=== PATIENT | female | born 1945 | race Caucasian/White ===

== ENCOUNTER → 2017-09-09 | Outpatient (CLI) | payer MEDICARE, BC, SELFPAY | PROVIDERS: Visit Provider Surgery | DX: R10.84 Generalized abdominal pain (principal) | CPT/HCPCS: 36415; 80053; 85025 ==

== ENCOUNTER → 2017-09-18 10:09 | Outpatient (CLI) | payer MEDICARE, BC, SELFPAY ==
--- NOTE | 2017-09-18 10:14 | CT_ITS ---
CT abdomen pelvis w con CLINICAL INDICATION: Right upper quadrant pain, abdominal wall bulge, abdominal pain ITS.REASON: ABD WALL BULGE, ABD PAIN ORDERING PHYSICIAN: Gee Edwards MD PATIENT AGE: 71 years COMPARISON: 03/26/2016 TECHNIQUE: Axial images obtained with sagittal and coronal reformats. PROCEDURE: Oral Contrast: Redicat IV Contrast: 75 mL of Isovue-370 . FINDINGS: No acute finding in the lower chest. Prior cholecystectomy. The liver, spleen, adrenal glands, and pancreas are unremarkable. No renal mass or hydronephrosis. There is a 3 mm nonobstructing stone in lower pole the right kidney Small bilateral renal cortical cyst. No intestinal structure free air. There is a moderate amount retained colonic feces. No evidence of diverticulitis or appendicitis. Prior hysterectomy. No abdominal wall hernia. There is minimal bulging of the anterior abdominal wall just inferior to the level the umbilicus but no clarke hernia evident. There are degenerative changes in the lumbar spine. Mild lumbar scoliosis convex left. IMPRESSION: 1. No acute intra-abdominal or pelvic findings. 2. Nonobstructive right nephrolithiasis. 3. Minimal bulging of the anterior abdominal wall slightly to the left in the infraumbilical region. No abdominal wall hernia evident
--- NOTE | 2017-09-18 11:06 | HMH.ITSHM ---
alprazolam amitriptyline amlodipine cyclobenzaprine ergocalciferol fluticasone salmeterol furosemide gabapentin glycopyrrolate levocetirizine levothyroxine metformin methen m blue s phos phasal hyo milnacipran o2 nicotine omeprazole potassium cholride rosuvastatin sitagliptin topiramate ventolin
== END ==
PROVIDERS: Family Provider Family Medicine; PCP Family Medicine; Visit Provider Surgery
DX: R10.11 Right upper quadrant pain (principal); R19.01 Right upper quadrant abdominal swelling, mass and lump
CPT/HCPCS: 74177; Q9967

== ENCOUNTER → 2017-10-05 09:56 | Outpatient (POV) | payer MEDICARE, BC, SELFPAY ==
[2017-10-05 10:26] VITALS: BP 113/72; PULSE 108; RESP 16; TEMP 37; O2SAT 95; BMI 28.3
--- NOTE | 2017-10-05 10:49 | HMH.PAINSOAP ---
[facility] Pain Management SOAP Note Subjective:: This patient is a pleasant 71-year-old white female we are treating for low back pain with degenerative disc disease of lumbar spine multiple levels as well as facet hypertrophy. Her insurance has denied repeat medial branch block injections. We did get a new MRI which shows degenerative disc disease with bulging disc at L3-L4, L4-L5 and L5-S1 most severe at L5-S1 with severe facet arthritic change. I do believe that she would benefit from repeat medial branch blocks and possibly rhizotomy. We will appeal this denial. We will also refer to Dr. Alcantara for neurosurgical evaluation. If she is not a surgical candidate then she may be a candidate for intrathecal therapy. I have talked to her for pain pump. We will follow-up with her and possibly pursue intrathecal pump trial. Objective:: Alert and oriented ?3 in no acute distress. Patient does have an antalgic gait. She also is sitting shifted to the left because of increasing pain. Motor strength of the lower extremities is 5/5. There is no gross sensory deficit. Tenderness over the lower lumbar spine. Increased pain with extension. Assessment:: Degenerative disc disease lumbar spine multilevel with bulging disc and severe facet arthritic changes with lumbar radiculopathy symptoms. Plan:: We did get a new MRI which shows degenerative disc disease with bulging disc at L3-L4, L4-L5 and L5-S1 most severe at L5-S1 with severe facet arthritic change. I do believe that she would benefit from repeat medial branch blocks and possibly rhizotomy. We will appeal this denial. We will also refer to Dr. Alcantara for neurosurgical evaluation. If she is not a surgical candidate then she may be a candidate for intrathecal therapy. I have talked to her for pain pump. We will follow-up with her and possibly pursue intrathecal pump trial.
== END ==
PROVIDERS: Family Provider Family Medicine; PCP Family Medicine; Visit Provider Anesthesiology
DX: M51.16 Intervertebral disc disorders with radiculopathy, lumbar region (principal)
CPT/HCPCS: 99212

== ENCOUNTER → 2017-10-13 10:56 | Outpatient (POV) | payer MEDICARE, BC, SELFPAY | PROVIDERS: Family Provider Family Medicine; PCP Family Medicine; Visit Provider Internal Medicine | DX: Z00.00 Encounter for general adult medical examination without abnormal findings (principal) ==

== ENCOUNTER → 2017-11-16 14:46 | Outpatient (POV) | payer MEDICARE, BC, SELFPAY ==
[2017-11-16 15:23] VITALS: BP 140/92; PULSE 105; RESP 20; O2SAT 94; BMI 31.6
--- NOTE | 2017-11-16 17:03 | HMH.PAINSOAP ---
[facility] Pain Management SOAP Note Subjective:: This patient is a pleasant 72-year-old white female who we are treating for low back pain secondary to degenerative disc disease of the lumbar spine, bulging disks, severe facet arthritis. Patient has tried and failed physical therapy, anti-inflammatories. Patient has severe facet arthritic changes. Patient had been trying to get medial branch blocks approved however her insurance denied this. Patient presents since today with extreme point tenderness over her bilateral SI joints. She has pain radiating from her SI joint to the back of her knees bilaterally. Patient states she has not had any SI joint injections in the past. Patient is also interested in the facet injections at some point. Patient states her pain is sharp and stabbing at times. Patient was seen by Dr. Alcantara who recommended injections at this time and potentially RFAs or an intrathecal pain pump due to the fact that she is not a surgical candidate at this time. ROS General: no recent weight change, no fever, no sleep disturbances Respiratory: no cough, no shortness of air, no recurring pulmonary infections Cardiovascular/Peripheral Vascular: No chest pain, No palpitations, no edema, no shortness of breath. Gastrointestinal: no incontinence, normal bowel movements reported Genitourinary: no incontinence Musculoskeletal: SI joint pain bilaterally, low back pain Psychiatric: normal mood/ affect, Neurological: [denies weakness in extremities], [denies balance issues] Objective:: Physical Exam General: Alert and oriented x3, no acute distress, pleasant and cooperative, [on room air] Lungs: Resps E/U, Symmetrical chest expansion, Eyes: PERRL Musculoskeletal: Flexion and extension of lumbar spine somewhat guarded secondary to pain, deep tendon reflexes normal, strength in upper and lower extremities [5/5], [abnormal gait noted], positive Brian's test bilaterally, extreme point tenderness over bilateral SI joints. Neurological: speech clear, seo professional equal, no gross sensory deficits Assessment:: Sacroiliitis, degenerative disc disease of the lumbar spine, facet arthropathy. Plan:: We will plan bilateral SI joint injections at this time. I have discussed this with the patient and explained the risks and benefits and she wishes to proceed. Patient has tried and failed anti-inflammatory medications, medications, physical therapy and stretching routine. I believe that this will help the patient's pain that is bothering her at this time. We will then re-visit facet injections. This note was dictated with voice recognition software may contain errors or omissions
--- NOTE | 2017-11-16 17:06 | P.CONS_ITS ---
[facility] Pain Management SOAP Note Subjective:: This patient is a pleasant 72-year-old white female who we are treating for low back pain secondary to degenerative disc disease of the lumbar spine, bulging disks, severe facet arthritis. Patient has tried and failed physical therapy, anti-inflammatories. Patient has severe facet arthritic changes. Patient had been trying to get medial branch blocks approved however her insurance denied this. Patient presents since today with extreme point tenderness over her bilateral SI joints. She has pain radiating from her SI joint to the back of her knees bilaterally. Patient states she has not had any SI joint injections in the past. Patient is also interested in the facet injections at some point. Patient states her pain is sharp and stabbing at times. Patient was seen by Dr. Alcantara who recommended injections at this time and potentially RFAs or an intrathecal pain pump due to the fact that she is not a surgical candidate at this time. ROS General: no recent weight change, no fever, no sleep disturbances Respiratory: no cough, no shortness of air, no recurring pulmonary infections Cardiovascular/Peripheral Vascular: No chest pain, No palpitations, no edema, no shortness of breath. Gastrointestinal: no incontinence, normal bowel movements reported Genitourinary: no incontinence Musculoskeletal: SI joint pain bilaterally, low back pain Psychiatric: normal mood/ affect, Neurological: [denies weakness in extremities], [denies balance issues] Objective:: Physical Exam General: Alert and oriented x3, no acute distress, pleasant and cooperative, [ on room air] Lungs: Resps E/U, Symmetrical chest expansion, Eyes: PERRL Musculoskeletal: Flexion and extension of lumbar spine somewhat guarded secondary to pain, deep tendon reflexes normal, strength in upper and lower extremities [5/5], [abnormal gait noted], positive Brian's test bilaterally, extreme point tenderness over bilateral SI joints. Neurological: speech clear, engraver pantograph equal, no gross sensory deficits Assessment:: Sacroiliitis, degenerative disc disease of the lumbar spine, facet arthropathy. Plan:: We will plan bilateral SI joint injections at this time. I have discussed this with the patient and explained the risks and benefits and she wishes to proceed. Patient has tried and failed anti-inflammatory medications, medications, physical therapy and stretching routine. I believe that this will help the patient's pain that is bothering her at this time. We will then re- visit facet injections. This note was dictated with voice recognition software may contain errors or omissions
== END ==
PROVIDERS: Family Provider Family Medicine; PCP Family Medicine; Visit Provider Clinical Nurse Specialist Family Health
DX: M46.1 Sacroiliitis, not elsewhere classified (principal)
CPT/HCPCS: 99212

== ENCOUNTER → 2017-12-15 12:51 | Outpatient (CLI) | payer MEDICARE, BC, SELFPAY ==
[2017-12-15 13:40] VITALS: PULSE 90; PULSE 96
[2017-12-15 14:05] VITALS: BP 130/85; BP 170/94; PULSE 100; PULSE 118; RESP 18; RESP 24; O2SAT 92; O2SAT 93
--- NOTE | 2017-12-15 14:23 | CT_ITS ---
EXAM: CT LUNG LOW DOSE WO CONTRAST ORDERING PHYSICIAN: Андрей New MD ===== TECHNIQUE: The exam was performed on a GE Light Speed [address] scanner using 3.0 mGy CTDI. A low dose helical CT CHEST was performed on a multi-detector scanner. All CT scans at the facility use one or more dose reduction, viz: automated exposure control; ma/kV adjustment per patient size (including targeted exams where dose is matched to indication; i.e. head); or iterative reconstruction technique. The LDCT was performed in a facility that meets the criteria for the screening program. Data regarding this exam was submitted to ACR which is an approved registry. The order for this exam indicates that it came as a result of a lung cancer screening counseling shard decision-making visit that included all the elements required of such a visit including smoking cessation. The radiologist interpreting this exam meets the [facility] criteria for the LDCT lung cancer screening program. The exam is reported using the Lung-RADS classification scale and reported to the ACR registry. NOTE: This study was performed for the specific purposes of lung cancer screening and is not an alternative to diagnostic chest CT. ========= RADIATION DOSE: CTDI vol(CT dose Index-volume) = 2.9mG DLP (Dose Length Product) = 107.21 mGcm COMPARISON: Previous LD CT chest 07/10/2016 HISTORY: 72-year-old female One half pack per day over 50 years = estimated 25-30 pack-year Currently smoking FINDINGS: No lung mass nor suspicious lung nodule Indeterminate or Suspicious Lung Nodules(Category3-4B):- NONE STABLE BENIGN NODULES (category 2) 4 mm hyperdense irregular focal density axial image # 31 ,Superior Segment RLL. This appears partially calcified on coronal slice 57 and sagittal 40. And thus likely small old area of granulomatous scarring LUNG PARENCHYMA Emphysema: Mild centrilobular emphysematous changes Airways disease: Hyperinflation with bronchial thickening consistent withobstructive chronic bronchitis Fibrosis: Minimal fibrotic changes and minor scarring most evident posterior lung bases OTHER ANATOMIC REGIONS Lymph Nodes: No enlarged lymph nodes evident. Scattered small nodes are present in the mediastinum and eyal Pleura: Unremarkable Cardiac: Unremarkable OTHER FINDINGS: No other pertinent findings evident IMPRESSION: 1.. Lung RADS Category: 2 ... Stable Benign findings Stable small area Most certainly benign area of likely granuloma scarring medial right lung again noted 2. No suspicious lung mass or findings. 3. Other findings: Mild centrilobular present distributed with obstructivechronic bronchitis RECOMMENDATIONS: 12 month screening LDCT
== END ==
PROVIDERS: Family Provider Family Medicine; PCP Internal Medicine; Visit Provider Internal Medicine
DX: Z87.891 Personal history of nicotine dependence (principal); Z12.2 Encounter for screening for malignant neoplasm of respiratory organs; R06.02 Shortness of breath; J42 Unspecified chronic bronchitis
CPT/HCPCS: 94060; 94618; 94640; 94726; 94729

== ENCOUNTER 2017-12-18 13:14 | Day surgery (SDC) | payer MEDICARE, BC, SELFPAY ==
[2017-12-18 13:29] VITALS: BP 165/92; PULSE 115; RESP 24; TEMP 36.6; O2SAT 94; BMI 31.9
--- NOTE | 2017-12-18 13:32 | PC.NURSE ---
PATIENT RESPIRATORY RATE REGULAR, DEPTH NORMAL. PATIENT DOES NOT APPEAR DISTRESSED AT ASSESSMENT.
--- NOTE | 2017-12-18 13:33 | HMH.PMPROC ---
- Procedure Date: 12/18/17 Time: 13:33 Anesthesiologist:: Benja Hinojosa MD Complications:: None Pre-procedure Diagnosis:: Sacroiliitis Post-procedure Diagnosis:: Same Indications for Procedure:: This patient is a pleasant 72-year-old white female who we are treating for bilateral hip pain. She is tender over both SI joints. She does have a positive Brian's test bilaterally. We will do bilateral SI joint injections today to see if this helps with her pain symptoms. Procedure Details:: B/L SI joint injection under fluoroscopy Informed consent was obtained and the risks and benefits of the procedure was explained to the patient. The patient was taken to the procedure room and placed prone on the procedure table. The patient was prepped using ChloraPrep. The skin and subcutaneous tissues overlying the SI joints were anesthetized using lidocaine. I placed a 22-gauge needle first in the left SI joint and second in the right SI joint. Needle placement was confirmed with dye. After this we injected 5 mL bupivacaine 0.25% and Depo-Medrol 40 mg into each SI joint. Patient tolerated the procedure well with no complication. Plan and Disposition:: We will follow-up with her in 2 weeks. We will reevaluate her symptoms at that time.
[2017-12-18 13:37] VITALS: BP 137/93; PULSE 111; RESP 20
[2017-12-18 13:38] VITALS: BP 160/88; PULSE 108; RESP 20
[2017-12-18 13:48] VITALS: BP 138/84; PULSE 107; RESP 18; O2SAT 94
== END 2017-12-18 13:44 | disposition home or self-care (01) ==
PROVIDERS: Family Provider Family Medicine; PCP Internal Medicine; Visit Provider Anesthesiology
DX: M46.1 Sacroiliitis, not elsewhere classified (principal)
CPT/HCPCS: 27096; G0260; J1030; Q9966

== ENCOUNTER → 2018-01-04 13:09 | Outpatient (POV) | payer MEDICARE, BC, SELFPAY ==
[2018-01-04 13:25] VITALS: BP 115/72; PULSE 83; BMI 31.9
--- NOTE | 2018-01-04 13:30 | HMH.PAINSOAP ---
[facility] Pain Management SOAP Note Subjective:: This patient is a pleasant 72-year-old white female who presents today for follow-up after bilateral SI joint injections. Patient states that she had 80% relief in her SI joints however the pain has begun to return. Patient is interested in pursuing medial branch blocks. Patient has low back pain secondary to degenerative disc disease of the lumbar spine, bulging disc, severe facet arthritis, lumbar spondylosis. Patient has tried and failed physical therapy. Patient completed a 6 week at home exercise program with no relief. Patient has failed Tylenol and ibuprofen and anti-inflammatory therapy for 3 weeks. Patient has been able to do very little moving, lifting, bending for the last year. She rates her pain a 6 out of 10 today. Patient states most of her pain is in her back. Patient has no radiation of pain. Patient does have extreme pain on twisting. ROS General: no recent weight change, no fever, no sleep disturbances Respiratory: no cough, no shortness of air, no recurring pulmonary infections Cardiovascular/Peripheral Vascular: No chest pain, No palpitations, no edema, no shortness of breath. Gastrointestinal: no incontinence, normal bowel movements reported Genitourinary: no incontinence Musculoskeletal: Back pain Psychiatric: normal mood/ affect Neurological: [denies weakness in extremities], [denies balance issues] Objective:: Physical Exam General: Alert and oriented x3, no acute distress, pleasant and cooperative, [on room air] Lungs: Resps E/U, Symmetrical chest expansion, Eyes: PERRL Musculoskeletal: Flexion and extension of lumbar spine somewhat guarded secondary to pain, deep tendon reflexes normal, strength in upper and lower extremities [5/5], slightly antalgic gait noted, positive Kemps test Neurological: speech clear, cash applications representative equal, no gross sensory deficits Assessment:: Lumbar spondylosis, facet arthropathy, degenerative disc disease of the lumbar spine, sacroiliitis Plan:: We will schedule facet joint injection/medial branch blocks of L3-L4-L5 L5-S1 bilaterally. I will follow-up with this patient after these injections. I believe that given her symptomology and her MRI pathology this would be beneficial for her. Patient and I had a long discussion about potentially neuro stimulation or intrathecal pain pump if these injections do not work. Patient has tried and failed physical therapy and 6 weeks of home exercise program. Patient has tried and failed NSAIDs, acetaminophen, ibuprofen for over 3 weeks. Patient has not been able to lift or bend or move without limitations for at least a year. She is not on any anticoagulation therapy This note was dictated using voice recognition software and may contain errors or omissions
--- NOTE | 2018-01-04 13:34 | P.CONS_ITS ---
[facility] Pain Management SOAP Note Subjective:: This patient is a pleasant 72-year-old white female who presents today for follow-up after bilateral SI joint injections. Patient states that she had 80% relief in her SI joints however the pain has begun to return. Patient is interested in pursuing medial branch blocks. Patient has low back pain secondary to degenerative disc disease of the lumbar spine, bulging disc, severe facet arthritis, lumbar spondylosis. Patient has tried and failed physical therapy. Patient completed a 6 week at home exercise program with no relief. Patient has failed Tylenol and ibuprofen and anti-inflammatory therapy for 3 weeks. Patient has been able to do very little moving, lifting, bending for the last year. She rates her pain a 6 out of 10 today. Patient states most of her pain is in her back. Patient has no radiation of pain. Patient does have extreme pain on twisting. ROS General: no recent weight change, no fever, no sleep disturbances Respiratory: no cough, no shortness of air, no recurring pulmonary infections Cardiovascular/Peripheral Vascular: No chest pain, No palpitations, no edema, no shortness of breath. Gastrointestinal: no incontinence, normal bowel movements reported Genitourinary: no incontinence Musculoskeletal: Back pain Psychiatric: normal mood/ affect Neurological: [denies weakness in extremities], [denies balance issues] Objective:: Physical Exam General: Alert and oriented x3, no acute distress, pleasant and cooperative, [ on room air] Lungs: Resps E/U, Symmetrical chest expansion, Eyes: PERRL Musculoskeletal: Flexion and extension of lumbar spine somewhat guarded secondary to pain, deep tendon reflexes normal, strength in upper and lower extremities [5/5], slightly antalgic gait noted, positive Kemps test Neurological: speech clear, arboriculture instructor equal, no gross sensory deficits Assessment:: Lumbar spondylosis, facet arthropathy, degenerative disc disease of the lumbar spine, sacroiliitis Plan:: We will schedule facet joint injection/medial branch blocks of L3-L4-L5 L5-S1 bilaterally. I will follow-up with this patient after these injections. I believe that given her symptomology and her MRI pathology this would be beneficial for her. Patient and I had a long discussion about potentially neuro stimulation or intrathecal pain pump if these injections do not work. Patient has tried and failed physical therapy and 6 weeks of home exercise program. Patient has tried and failed NSAIDs, acetaminophen, ibuprofen for over 3 weeks. Patient has not been able to lift or bend or move without limitations for at least a year. She is not on any anticoagulation therapy This note was dictated using voice recognition software and may contain errors or omissions
== END ==
PROVIDERS: Family Provider Family Medicine; PCP Internal Medicine; Visit Provider Clinical Nurse Specialist Family Health
DX: M46.1 Sacroiliitis, not elsewhere classified (principal); M47.816 Spondylosis without myelopathy or radiculopathy, lumbar region
CPT/HCPCS: 99212

== ENCOUNTER → 2018-03-02 13:54 | Outpatient (POV) | payer MEDICARE, MEDICAID, SELFPAY | PROVIDERS: Family Provider Family Medicine; PCP Internal Medicine; Visit Provider Internal Medicine | DX: Z00.00 Encounter for general adult medical examination without abnormal findings (principal) ==

== ENCOUNTER → 2018-04-20 16:15 | Outpatient (REF) | payer MEDICARE, MEDICAID, SELFPAY | LOC: LAB 16:15 | PROVIDERS: Visit Provider Urology | DX: R39.89 Other symptoms and signs involving the genitourinary system (principal) | CPT/HCPCS: 87086; 87088; 87186 ==

== ENCOUNTER → 2018-06-11 09:54 | Outpatient (CLI) | payer MEDICARE, MEDICAID, SELFPAY ==
--- NOTE | 2018-06-11 10:00 | MM_ITS ---
MM Dig screening mamm BI w/CAD ORDERING PHYSICIAN : Salvador Zamorano PATIENT AGE: 72 years GENDER: Female COMPARISON: January 31 February INDICATION: ITS.REASON: SCREENING no hormones. No new complaints.. Family history mother with breast cancer age 25 premenopausal TECHNIQUE: Standard CC and MLO images were obtained. R2 CAD reviewed. FINDINGS: Fairly Low-density breast with generalized fatty replacement No suspicious or solid mass. No suspicious Calcifications.. No architectural distortion Follow-up in one year IMPRESSION: No new areas of significant concern Stable bilateral mammogram. BI-RADS Category: 1 Negative RECOMMENDED FOLLOW-UP: 1YR 1 YEAR FOLLOW-UP (A letter has been sent to the patient regarding results of the study.)
== END ==
PROVIDERS: Family Provider Family Medicine; PCP Internal Medicine; Visit Provider Internal Medicine
DX: Z12.31 Encounter for screening mammogram for malignant neoplasm of breast (principal)
CPT/HCPCS: 77067

== ENCOUNTER → 2018-07-20 13:12 | Outpatient (POV) | payer MEDICARE, MEDICAID, SELFPAY | PROVIDERS: Visit Provider Internal Medicine | DX: Z00.00 Encounter for general adult medical examination without abnormal findings (principal) ==

== ENCOUNTER → 2018-08-02 14:22 | Outpatient (POV) | payer MEDICARE, MEDICAID, SELFPAY ==
[2018-08-02 14:41] VITALS: BP 127/75; PULSE 104; RESP 18; O2SAT 98; BMI 33.1
--- NOTE | 2018-08-02 14:57 | P.CONS_ITS ---
[facility] Pain Management SOAP Note Subjective:: Patient is a pleasant 72-year-old white female who presents today for follow-up. Patient has increasing low back and knee pain. Patient has tried and failed SI joint injections, lumbar L steroid injections, RFA's, facet joint injections. Patient is having pain constantly. She states that it is mostly in her low back running into her legs and her neck running into her arms. She rates her pain 8 out of 10 today. Patient's tried and failed medications. Patient is interested in potentially doing a neurostimulator. I do believe that it would be beneficial. Patient is failed Tylenol ibuprofen and anti-inflammatory therapy for over 3 months. Patient also continuing a home stretching routine. ROS General: no recent weight change, no fever, no sleep disturbances Respiratory: no cough, no shortness of air, no recurring pulmonary infections Cardiovascular/Peripheral Vascular: No chest pain, No palpitations, no edema, no shortness of breath. Gastrointestinal: no incontinence, normal bowel movements reported Genitourinary: no incontinence Musculoskeletal: Back pain, neck pain, leg pain Psychiatric: normal mood/ affect Neurological: [denies weakness in extremities], [denies balance issues] Objective:: Physical Exam General: Alert and oriented x3, no acute distress, pleasant and cooperative, [on room air] Lungs: Resps E/U, Symmetrical chest expansion, Eyes: PERRL Musculoskeletal: Flexion and extension of cervical and lumbar spine somewhat guarded secondary to pain, deep tendon reflexes normal, strength in upper and lower extremities [5/5], [abnormal gait noted] Neurological: speech clear, assisted living coordinator equal, no gross sensory deficits Assessment:: Lumbar spondylosis, facet arthropathy, degenerative disc disease lumbar pain, sacroiliitis Plan:: We will start the process of getting her approved for neurostimulator trial I do believe that it would benefit her to have a lead both placed for her cervical pain along with her low back pain. I will follow-up with her after this. Patient is not on any anticoagulation therapy. Patient understands and has realistic goals of the treatment. Patient understands she also needs a psychological evaluation. I will follow-up with her after this. This note was dictated using voice recognition software and may contain errors or omissions
== END ==
PROVIDERS: PCP Internal Medicine; Visit Provider Clinical Nurse Specialist Family Health
DX: M47.896 Other spondylosis, lumbar region (principal); M54.06 Panniculitis affecting regions of neck and back, lumbar region; M51.36 Other intervertebral disc degeneration, lumbar region; M46.1 Sacroiliitis, not elsewhere classified
CPT/HCPCS: 99213

== ENCOUNTER → 2018-10-21 15:48 | Outpatient (CLI) | payer MEDICARE, MEDICAID, SELFPAY ==
[2018-10-21 18:49] LABS: T4 (Thyroxine) 11.1 ug/dl (4.7-13.3); Thyroid Stimulating Hormone 3.36 uIU/ml (0.358-3.740)
[2018-10-25 08:36] LABS: Thyroid Peroxidase Antibodies 66 IU/mL (0-34)
[2018-10-25 08:38] LABS: Thyroid Stimulating Immunoglob <0.10 IU/L (0.00-0.55)
[2018-10-25 08:40] LABS: Calcitonin <2.0 pg/mL (0.0-5.0)
== END ==
PROVIDERS: Visit Provider Otolaryngology
DX: R00.0 Tachycardia, unspecified (principal); E03.9 Hypothyroidism, unspecified
CPT/HCPCS: 36415; 82308; 84436; 84443; 84445; 86376

== ENCOUNTER → 2018-11-05 09:51 | Outpatient (CLI) | payer MEDICARE, MEDICAID, SELFPAY ==
--- NOTE | 2018-11-05 09:52 | US_ITS ---
US thyroid HISTORY: Abnormal thyroid levels, family history of thyroid cancer ITS.REASON: Hypothyroidism ORDERING PHYSICIAN: Chato Avila MD PATIENT AGE: 73 years Comparison: None FINDINGS: The right lobe measures 2.2 x 0.8 x 1.2 cm. There is heterogeneous echogenicity. No dominant nodule. The left lobe measures 2.2 x 0.8 x 0.8 cm also showing heterogeneous echogenicity without discrete nodule. IMPRESSION: Atrophic heterogeneous appearing thyroid gland. No discrete nodule evident
== END ==
PROVIDERS: PCP Internal Medicine; Visit Provider Otolaryngology
DX: E03.9 Hypothyroidism, unspecified (principal)
CPT/HCPCS: 76536

== ENCOUNTER → 2018-12-28 14:44 | Outpatient (CLI) | payer MEDICARE, MEDICAID, SELFPAY ==
--- NOTE | 2018-12-28 14:47 | CT_ITS ---
CT lung screening EXAM: CT LUNG LOW DOSE WO CONTRAST HISTORY: 50 pack-year smoking history, asymptomatic for lung cancer ITS.REASON: H/O NICOTINE DEPENDENCE ORDERING PHYSICIAN: Андрей New MD PATIENT AGE: 73 years COMPARISON: 12/15/2017 TECHNIQUE: The exam was performed on a GE Light Speed [address] scanner using 2.90 mGy CTDI. A low dose helical CT CHEST was performed on a multi-detector scanner. All CT scans at the facility use one or more dose reduction, viz: automated exposure control, ma/kV adjustment per patient size (including targeted exams where dose is matched to indication, i.e. head), or iterative reconstruction technique. The LDCT was performed in a facility that meets the criteria for the screening program. Data regarding this exam was submitted to ACR which is an approved registry. The order for this exam indicates that it came as a result of a lung cancer screening counseling shard decision-making visit that included all the elements required of such a visit including smoking cessation. The radiologist interpreting this exam meets the CMS criteria for the LDCT lung cancer screening program. The exam is reported using the Lung-RADS classification scale and reported to the ACR registry. NOTE: This study was performed for the specific purposes of lung cancer screening and is not an alternative to diagnostic chest CT. RADIATION DOSE: CTDI vol(CT dose Index-volume) = 2.90mG DLP (Dose Length Product) = 106.55 mGcm FINDINGS: COPD/centrilobular emphysema. There is an irregular opacity in the right lower lobe at 6 mm unchanged and may be due to an area of scarring image #34. Scattered small nodes are present in the mediastinum not significantly changed. Mild kyphoscoliosis of the thoracic spine. Paraseptal emphysematous changes IMPRESSION: 1. Lung RADS Category: 2, benign 2. Other findings: COPD/emphysema RECOMMENDATIONS: 12 month LDCT follow-up
== END ==
PROVIDERS: PCP Internal Medicine; Visit Provider Internal Medicine
DX: Z12.2 Encounter for screening for malignant neoplasm of respiratory organs (principal); Z87.891 Personal history of nicotine dependence

== ENCOUNTER → 2019-01-28 08:54 | Outpatient (CLI) | payer MEDICARE, MEDICAID, SELFPAY ==
--- NOTE | 2019-01-28 09:02 | US_ITS ---
US Arterial Ankle Brachial Ind History: Diabetes, bilateral rest pain, claudication ORDERING PHYSICIAN: Salvador Zamorano PATIENT AGE: 73 years TECHNIQUE: Segmental pressures obtained of both right and left leg. These are compared to brachial blood pressure to yield index at each level sampled including summary SVEN. The data sheets from the procedure are available in PACS FINDINGS Rest study only performed today No prior studies available for comparison. Blood pressures reported are in millimeters mercury. RIGHT LEG SVEN = 1.2. RIGHT LEG TBI=0.8 Brachial BP: 131 Thigh BP: 145 Calf BP: 146 Ankle PT: 160 Ankle DP : 153 Digit =112 LEFT LEG SVEN = 1.1 LEFT LEG TBI= 0.7 Brachial BPD: 139 Thigh BP: 143 Calf BP: 150 Ankle PT:157 Ankle DP: 136 Digit = 100 Pulses and waveforms: Normal IMPRESSION: The ABIs as reported above are within normal limits. Waveforms and pulses are also unremarkable.
== END ==
PROVIDERS: PCP Internal Medicine; Visit Provider Internal Medicine
DX: I73.9 Peripheral vascular disease, unspecified (principal); R09.89 Other specified symptoms and signs involving the circulatory and respiratory systems
CPT/HCPCS: 93922

== ENCOUNTER → 2019-02-01 08:56 | Outpatient (POV) | payer MEDICARE, MEDICAID, SELFPAY | PROVIDERS: Visit Provider Internal Medicine | DX: Z00.00 Encounter for general adult medical examination without abnormal findings (principal) ==

== ENCOUNTER → 2019-02-02 12:26 | Outpatient (CLI) | payer MEDICARE, MEDICAID, SELFPAY ==
--- NOTE | 2019-02-02 12:32 | XR_ITS ---
XR ribs LT min 3V w CXR1V HISTORY: Left-sided rib pain following injury 2 weeks ago ITS.REASON: RIB PAIN ORDERING PHYSICIAN: Emely Ortiz APRN PATIENT AGE: 73 years Comparison: 12/09/2018 FINDINGS: A frontal view of the chest shows no acute finding. Pericardial fat pad noted on the left.. Multiple views of the Left ribs were obtained. No fracture or dislocation. No lytic or blastic change. There is lumbar scoliosis convex left IMPRESSION: Negative RIBS. If pain persists, consider follow-up exam in 7-[address] with 3-D reformats.
--- NOTE | 2019-02-02 12:33 | XR_ITS ---
EXAM: XR lumbar spine min 4V HISTORY: ITS.REASON: LOW BACK PAIN, HIP PAIN ORDERING PHYSICIAN: Emely Ortiz APRN PATIENT AGE: 73 years COMPARISON: None FINDINGS: Mild lumbar scoliosis convex left. Multilevel degenerative disc disease is present from L1 S1. There is mild retrolisthesis of L3 on L4 and L4 on L5. No acute fracture or dislocation is evident. Facet arthritic changes are noted at L4-L5 and L5-S1. There is a sclerotic focus involving the medial aspect of the ilium on the left and may be due to bone island. This was present on the CT scan of 09/18/2017. IMPRESSION: No acute finding. Lumbar scoliosis with degenerative change
== END ==
PROVIDERS: PCP Internal Medicine; Visit Provider Nurse Practitioner Family
DX: M54.5 Low back pain (principal); R07.81 Pleurodynia
CPT/HCPCS: 71101; 72110

== ENCOUNTER 2019-02-07 21:17 | Inpatient (IN) | payer MEDICARE, MEDICAID, SELFPAY ==
[2019-02-07 21:30] VITALS: BP 101/65; PULSE 97; RESP 19; TEMP 37.7; O2SAT 94; BMI 32.8
--- NOTE | 2019-02-07 21:34 | XR_ITS ---
XR chest 2V HISTORY: ITS.REASON: chest pain ORDERING PHYSICIAN: Nicolas Busch MD PATIENT AGE: 73 years COMPARISON: 12/09/2018 FINDINGS: The cardiomediastinal silhouette and pulmonary vascularity are within normal limits. COPD with chronic changes. No lobar consolidation or collapse.. Vague opacity noted in the right upper lobe at the second interspace possibly due to summation artifact. Follow-up may confirm stability. Underlying parenchymal pathology not excluded. No acute bony abnormalities. IMPRESSION: COPD. Subtle patchy density right upper lobe possibly related to summation artifact versus developing infiltrate or nodule. Consider follow-up chest x-ray to confirm stability
--- NOTE | 2019-02-07 21:34 | CT_ITS ---
CT abdomen pelvis wo con CLINICAL INDICATION: Abdominal pain generalized, nausea, vomiting, diarrhea ITS.REASON: abd pain, n/v/d ORDERING PHYSICIAN: Nicolas Busch MD PATIENT AGE: 73 years COMPARISON: None TECHNIQUE: Axial images obtained with sagittal and coronal reformats. All CT scans at the facility use one or more dose reduction, viz: automated exposure control, ma/kV adjustment per patient size (including targeted exams where dose is matched to indication, i.e. head), or iterative reconstruction technique. PROCEDURE: Oral Contrast: None IV Contrast: None . FINDINGS: Lower thorax: No acute finding Prior cholecystectomy. Fatty liver. The spleen, adrenal glands,, and pancreas show no acute finding. There are nonobstructing punctate right renal calculi. There are small periportal and peripancreatic lymph nodes noted. There is metallic density in the right lower quadrant due to an ingested foreign body such as a coin. Other foreign bodies also a consideration such as a surgical or treatment device. No intestinal obstruction or free air. No evidence of appendicitis or diverticulitis. There is questionable mild bowel wall thickening of the splenic flexure. This could be better evaluated with IV and oral contrast. No pelvic mass or abnormal fluid collection. There are degenerative changes in the lumbar spine and hips. A sclerotic density overlies the left ilium unchanged There has been a prior hysterectomy. IMPRESSION: 1. Possible colitis of the splenic flexure. This could be better evaluated with IV and oral contrast exam. 2. Metallic density in the right lower quadrant at the area of the cecum and could be related to ingested foreign body or surgically placed device. No intestinal obstruction or free air 3. Other nonacute findings as described above.
[2019-02-07 22:02] LABS: Adenovirus F 40/41, stool Not Detected (NotDetected); Astrovirus Not Detected (NotDetected); Campylobacter Not Detected (NotDetected); Clostridium Difficile A/B, PCR Not Detected (NotDetected); Cryptosporidium Not Detected (NotDetected); Cyclospora Cayetanesis Not Detected (NotDetected); Entamoeba histolytica Not Detected (NotDetected); Enteroaggregative E coli Not Detected (NotDetected); Enteropathogenic E coli Not Detected (NotDetected); Enterotoxigenic E coli Not Detected (NotDetected); Giardia lamblia Not Detected (NotDetected); Norovirus Not Detected (NotDetected); Plesimonas Shigalloides, PCR Not Detected (NotDetected); Rotavirus A Not Detected (NotDetected); Salmonella, PCR Not Detected (NotDetected); Sapovirus Not Detected (NotDetected); Shiga-like toxin E coli Not Detected (NotDetected); Shigella Enterovasive E coli Not Detected (NotDetected); Vibrio Cholerae Not Detected (NotDetected); Vibrio, PCR Not Detected (NotDetected); Yersinia Entercolitica, PCR Not Detected (NotDetected)
[2019-02-07 22:10] LABS: Basophils # 0.1 K/mm3 (0-0.2); Basophils % 0.6 % (0.1-2.0); Eosinophils # 0.2 K/mm3 (0.0-0.4); Eosinophils % 1.4 % (0.1-12.0); Hematocrit 40.3 % (37.0-47.0); Hemoglobin 12.9 g/dL (12.2-16.2); Lymphocytes # 3.9 K/mm3 (0.7-4.5); Lymphocytes % 23.5 % (10-50); Mean Corpuscular HGB Conc 32.1 g/dL (31.8-35.4); Mean Corpuscular Hemoglobin 29.7 pg (27.0-31.2); Mean Corpuscular Volume 92.3 fl (81-99); Monocytes # 1.1 K/mm3 (0.1-1.0); Monocytes % 6.5 % (1.7-9.3); Neutrophils # 11.4 K/mm3 (1.8-7.8); Neutrophils % 67.9 % (37.0-80.0); Platelet Count 405 K/mm3 (142-424); Red Blood Count 4.37 M/mm3 (4.20-5.40); Red Cell Distribution Width 13.4 % (11.5-17.5); White Blood Count 16.7 K/mm3 (4.8-10.8)
[2019-02-07 22:14] LABS: MANUAL DIFFERENTIAL MANUAL DIFFERENTIAL (MANUAL DIFF)
[2019-02-07 22:18] VITALS: BP 101/65; PULSE 94; RESP 17; O2SAT 92
[2019-02-07 22:20] LABS: Microscopic, Urine URINE MICROSCOPIC (MICROSCOPIC)
[2019-02-07 22:24] LABS: Appearance,Urine CLEAR (Clear); Blood, Urine Negative (Negative); Color,Urine YELLOW (Yellow); Glucose,Urine (UA) Negative (Negative); Ketones,Urine Negative (Negative); Leukocyte Esterase,Urine 1+ (Negative); Nitrate,Urine Negative (Negative); PH,Urine 5.5 (5.0-8.5); Protein,Urine 1+ (Negative); Specific Gravity, Urine >= 1.030 (1.005-1.030); Urobilinogen,Urine 0.2 EU/dl (0.2)
[2019-02-07 22:26] LABS: Troponin I < 0.02 ng/ml (0.00-0.06)
[2019-02-07 22:27] LABS: Alanine Aminotransferase 49 U/L (12-78); Albumin Level 3.5 gm/dL (3.4-5.0); Albumin/Globulin Ratio 0.9 (1.1-1.8); Alkaline Phosphatase 79 U/L (46-116); Amylase 95 U/L (25-115); Anion Gap 17.4 mEq/L (5-15); Aspartate Amino Transferase 31 U/L (15-37); Bilirubin,Total 0.5 mg/dL (0.2-1.0); Blood Urea Nitrogen 40 mg/dL (7-18); C-Reactive Protein 1.9 mg/L (0.0-0.9); Calcium 8.9 mg/dL (8.5-10.1); Carbon Dioxide 25 mmol/L (21.0-32.0); Chloride 102 mmol/L (98-107); Creatinine Clearance Estimated 33 mL/min (50-200); Creatinine,Serum 2.15 mg/dL (0.55-1.02); Estimated Glomerular Filt Rate 23 ml/min (>60); GFR (African American) 27 ML/MIN (>60); Globulin 3.7 gm/dl (1.3-3.2); Glucose 128 mg/dL (74-106); Lipase 195 u/L (73-393); Potassium 4.4 mmoL/L (3.5-5.1); Sodium 140 mmol/L (136-145); Total Protein,Serum 7.2 gm/dL (6.4-8.2)
[2019-02-07 22:29] LABS: Bilirubin,Urine Negative (Negative)
[2019-02-07 22:31] LABS: Lactic Acid 3.8 mmol/L (0.4-2.0)
[2019-02-07 22:34] LABS: Bacteria,Urine 3+ /lpf; Mucus,Urine 1+ /lpf; Squamous Epithelial Cell,Urine Occasional #/hpf (0-5)
--- NOTE | 2019-02-07 22:43 | HMH.EDNVD ---
ED Disposition Clinical Impression: Colitis, Severe sepsis, Tobacco abuse, Renal insufficiency, Obesity (BMI 30.0-34.9) FB GI (foreign body in gastrointestinal tract) Qualifiers: Encounter type: initial encounter Qualified Code(s): T18.9XXA - Foreign body of alimentary tract, part unspecified, initial encounter Diabetes Qualifiers: Diabetes mellitus type: type 1 Diabetes mellitus complication status: with unspecified complications Qualified Code(s): E10.8 - Type 1 diabetes mellitus with unspecified complications UTI (urinary tract infection) Qualifiers: Urinary tract infection type: site unspecified Hematuria presence: without hematuria Qualified Code(s): N39.0 - Urinary tract infection, site not specified Disposition: Admitted As Inpatient Condition on Discharge: Fair Instructions: DI for Diarrhea and Traveler's Diarrhea -- Adult, DI for Diarrhea and Traveler's Diarrhea -- Child, DI for Nausea -- Adult, DI for Nausea -- Child Referrals: Salvador Zamorano [Primary Care Provider] - - Critical Care Critical Care Time: No Attestation: On 02/07/19, the high probability of a clinically significant, sudden or life threatening deterioration of the following system(s) required my full and direct attention, intervention and personal management. The time I documented below is in addition to time spent performing reported procedures but includes the following listed in this critical care notation. Medical Decision Making - Medical Records Medical records reviewed: Yes: I reviewed the patient's medical records. - Eric Inquiry Pt receiving controlled substance: No Vital Signs: 02/07/19 21:30 02/07/19 22:18 02/07/19 22:50 Temperature 99.9 F H 98.5 F Temperature Source Oral Oral Pulse Rate [Right Brachial] 97 H 94 H 93 H Respiratory Rate 19 17 17 Blood Pressure [Right Arm] 101/65 L 101/65 L 99/50 L Blood Pressure Mean [Right Arm] 77 77 66 Blood Pressure Source [Right Arm] Blood Pressure Position [Right Arm] 02 Sat by Pulse Oximetry 94 L 92 L 92 L Oxygen Delivery Method Room Air Room Air Room Air 02/07/19 23:13 02/07/19 23:46 02/08/19 00:15 Temperature Temperature Source Pulse Rate [Right Brachial] 93 H 95 H 96 H Respiratory Rate 17 15 Blood Pressure [Right Arm] 119/73 114/66 106/65 L Blood Pressure Mean [Right Arm] 88 82 78 Blood Pressure Source [Right Arm] Automatic Cuff Blood Pressure Position [Right Arm] Sitting 02 Sat by Pulse Oximetry 92 L 90 L 92 L Oxygen Delivery Method Room Air Room Air Room Air 02/08/19 00:26 Temperature 98.3 F Temperature Source Oral Pulse Rate [Right Brachial] 95 H Respiratory Rate 15 Blood Pressure [Right Arm] 96/62 L Blood Pressure Mean [Right Arm] 73 Blood Pressure Source [Right Arm] Blood Pressure Position [Right Arm] 02 Sat by Pulse Oximetry 90 L Oxygen Delivery Method Room Air - Lab Data Lab results reviewed: Yes: I reviewed the patient's lab results. Lab Results 02/07/19 21:55: WBC 16.7 H, RBC 4.37, Hgb 12.9, Hct 40.3, MCV 92.3, MCH 29.7, MCHC 32.1, RDW 13.4, Plt Count 405, MPV 7.0 L, Neut % (Auto) 67.9, Lymph % (Auto) 23.5, [place] % (Auto) 6.5, Eos % (Auto) 1.4, Baso % (Auto) 0.6, Neut # (Auto) 11.4 H, Lymph # (Auto) 3.9, [place] # (Auto) 1.1 H, Eos # (Auto) 0.2, Baso # (Auto) 0.1, Total Counted 100, Neutrophils % (Manual) 71, Lymphocytes % (Manual) 27, Monocytes % (Manual) 1 L, Eosinophils % (Manual) 1, Platelet Estimate Normal, RBC Morphology Not Reportable, Anisocytosis 1+, ESR 38 H 02/07/19 21:55: Sodium 140, Potassium 4.4, Chloride 102, Carbon Dioxide 25, Anion Gap 17.4 H, BUN 40 H, Creatinine 2.15 H, Estimated Creat Clear 33, Estimated GFR 23 L, Est GFR ( Amer) 27 L, Glucose 128 H, Calcium 8.9, Total Bilirubin 0.5, AST 31, ALT 49, Alkaline Phosphatase 79, Troponin I < 0.02, C-Reactive Protein 1.9 H, Total Protein 7.2, Albumin 3.5, Globulin 3.7 H, Albumin/Globulin Ratio 0.9 L, Amylase 95, Lipase 195 02/07/19 21:55: Lactate 3.8 H 02/07/19 21:55: St
[2019-02-07 22:50] VITALS: BP 99/50; PULSE 93; RESP 17; TEMP 36.9; O2SAT 92
[2019-02-07 23:04] LABS: Erythrocyte Sedimentation Rate 38 mm/hr (0-30)
[2019-02-07 23:13] VITALS: BP 119/73; PULSE 93; RESP 17; O2SAT 92
[2019-02-07 23:32] LABS: Eosinophils % 1 % (0-3); Lymphocytes % 27 % (10-50); Monocytes % 1 % (2-9); Neutrophils % 71 % (42-76); Platelet Estimate Normal; Total Cells Counted 100
[2019-02-07 23:33] LABS: Anisocytosis 1+
[2019-02-07 23:46] VITALS: BP 114/66; PULSE 95; O2SAT 90
[2019-02-08] VITALS (8 sets, daily range): BP systolic 96–111; BP diastolic 52–71; PULSE 92–96; RESP 15–18; TEMP 36.4–36.8; O2SAT 90–95; BMI 33.1
--- NOTE | 2019-02-08 00:48 | PC.NURSE ---
Dr Linares paged at this time.
--- NOTE | 2019-02-08 00:51 | PC.NURSE ---
Dr Busch speaking with Dr Linares at this time
--- NOTE | 2019-02-08 00:54 | PC.NURSE ---
Line disconnected, Dr Busch speaking with Dr Linares again
--- NOTE | 2019-02-08 00:59 | PC.NURSE ---
Dr Linares agreed to admit
--- NOTE | 2019-02-08 01:00 | PC.NURSE ---
Pharmacy paged at this time for Zosyn dosing
--- NOTE | 2019-02-08 01:04 | PC.NURSE ---
Bhanu in pharmacy stated to give Zosyn 3.375gm Q6H.
--- NOTE | 2019-02-08 01:10 | PC.NURSE ---
Pt requesting her Xanax at this time as she takes it TID. Dr Busch informed.
[2019-02-08 02:04] LABS: Reflex Lactic Add Lactic Reflex
[2019-02-08 02:57] LABS: Lactic Acid Follow Up (RFLX 1) 2.4 (0.4-2.0)
--- NOTE | 2019-02-08 03:53 | PC.NURSE ---
PATIENT ADMITTED THIS SHIFT. SHE HAS NOT HAD ANY EPISODES OF DIARRHEA SINCE ARRIVAL TO FLOOR. DENIES PAIN AND NAUSEA/VOMITING. PATIENT IS CURRENTLY ON 2 LPM OXYGEN WHILE SLEEPING R/T NOT HAVING HOME CPAP WITH HER. NO ACUTE CHANGES NOTED SINCE PREVIOUS ASSESSMENT. PATIENT CURRENTLY IN BED SLEEPING. NO OTHER PROBLEMS NOTED AT THIS TIME. VSS. WILL CONTINUE TO MONITOR.
[2019-02-08 04:35] LABS: Reflex Lactic (2 hrs) Add Lactic Reflex
[2019-02-08 05:05] LABS: Basophils # 0.1 K/mm3 (0-0.2); Basophils % 0.4 % (0.1-2.0); Eosinophils # 0.2 K/mm3 (0.0-0.4); Eosinophils % 1.4 % (0.1-12.0); Hematocrit 35.2 % (37.0-47.0); Lymphocytes # 3.8 K/mm3 (0.7-4.5); Lymphocytes % 34.5 % (10-50); Mean Corpuscular HGB Conc 31.9 g/dL (31.8-35.4); Mean Corpuscular Hemoglobin 29.2 pg (27.0-31.2); Mean Corpuscular Volume 91.7 fl (81-99); Mean Platelet Volume 7.6 fl (7.4-10.4); Monocytes # 0.4 K/mm3 (0.1-1.0); Monocytes % 3.8 % (1.7-9.3); Neutrophils # 6.6 K/mm3 (1.8-7.8); Neutrophils % 59.9 % (37.0-80.0); Platelet Count 304 K/mm3 (142-424); Red Blood Count 3.84 M/mm3 (4.20-5.40); Red Cell Distribution Width 13.5 % (11.5-17.5); White Blood Count 11.1 K/mm3 (4.8-10.8)
[2019-02-08 05:11] LABS: Anion Gap 13.8 mEq/L (5-15); Blood Urea Nitrogen 38 mg/dL (7-18); Carbon Dioxide 27 mmol/L (21.0-32.0); Chloride 106 mmol/L (98-107); Creatinine Clearance Estimated 44 mL/min (50-200); Creatinine,Serum 1.64 mg/dL (0.55-1.02); Estimated Glomerular Filt Rate 31 ml/min (>60); GFR (African American) 37 ML/MIN (>60); Glucose 116 mg/dL (74-106); Magnesium 2.1 mg/dL (1.4-2.2); Potassium 4.8 mmoL/L (3.5-5.1); Sodium 142 mmol/L (136-145)
[2019-02-08 05:16] LABS: Lactic Acid Follow up (RFLX 2) 1.2 (0.4-2.0)
[2019-02-08 05:18] LABS: Hemoglobin 11.2 g/dL (12.2-16.2)
[2019-02-08 05:27] LABS: Calcium 7.9 mg/dL (8.5-10.1)
[2019-02-08 05:42] LABS: POC Glucose,Bedside 114 (70-110)
--- NOTE | 2019-02-08 07:10 | P.CONPHA_ITS ---
[facility] Pharmacy VTE Monitoring - Patient Demographics Admission date: 02/07/19 Report Date: 02/08/19 Time: 07:10 Allergies/Adverse Reactions: Patient Allergies aripiprazole [From ABILIFY] Allergy (Unknown, Verified 02/07/19 21:50) ciprofloxacin [CIPROFLOXACIN] Allergy (Unknown, Verified 02/07/19 21:50) phenazopyridine [PHENAZOPYRIDINE] Allergy (Unknown, Verified 02/07/19 21:50) Height: 1.65 m Weight: 90.35 kg Patient Problems: Current Active Problems (Updated 02/08/19 @ 01:11 by Nicolas Busch MD) Renal insufficiency (Acute) Colitis (Acute) Severe sepsis (Acute) FB GI (foreign body in gastrointestinal tract) (Acute) Obesity (BMI 30.0-34.9) (Acute) UTI (urinary tract infection) (Acute) Tobacco abuse (Chronic) Diabetes (Chronic) - VTE Risk Labs: VTE Related Lab Results Hgb 11.2 g/dL (12.2-16.2) L D 02/08/19 04:55 Hct 35.2 % (37.0-47.0) L 02/08/19 04:55 Plt Count 304 K/mm3 (142-424) 02/08/19 04:55 BUN 38 mg/dL (7-18) H 02/08/19 04:55 Creatinine 1.64 mg/dL (0.55-1.02) H D 02/08/19 04:55 Estimated Creat Clear 44 mL/min (50-200) 02/08/19 04:55 Was VTE Risk Assessment Performed: Yes VTE Score: 7 VTE Risk Level: Moderate Risk - Prophylaxis VTE Prophylaxis Ordered?: Yes Types of VTE Prophylaxis: TEDS Knee High Location of Applied Device: Bilateral Lower Extremeties - VTE Diagnosis Confirmed Treatment or plan recommended: Continue Current Treatment
--- NOTE | 2019-02-08 08:32 | HMH.HPDC ---
General - General Admission date:: 02/08/19 Discharge date: 02/08/19 *Admission Date: 02/07/19 *Chief complaint: Diarrhea fatigue *History of present illness: Charli to pleasant 73-year-old female with multiple comorbidities who presents with 2 days of diarrhea and fatigue. On intention to the ER patient was complaining of significant watery diarrhea for the past 48 hours. She is having some abdominal discomfort. Denied nausea or vomiting. Also afebrile. On initial work-up, patient found to have an acute kidney injury as well as image findings concerning for colitis, UA positive for UTI, and CT abdomen with incidental finding of metal foreign body in ileocecal region. Admitted to medicine for further management due to inability to tolerate p.o., and dehydration. Started on Zosyn to cover UTI as well as colitis. Responded well to IV fluids. Asymptomatic overnight Patient denies chest pain, shortness of breath from baseline, altered mental status, focal weakness. Does complain of abdominal pain. [facility] History I have reviewed the patient's past medical history: Yes Medical History: Reports:: Asthma, Chronic Obstructive Pulmonary Disease (COPD), Diabetes Mellitus Type 2, Hyperlipidemia, Hypertension, Migraine Denies:: Cancer, Diabetes Mellitus Type 1, MRSA *Have you ever received a pneumonia vaccine?: Yes *Have you received a flu vaccine this season?: Yes Other Medical History: Reports: Anemia, Arthritis, Cataracts, Hypothyroidism, Sinus Problems Laterality Cases: Bilateral: Cataract, Tonsillectomy Other Surgeries: Yes: Appendectomy, Cardiac Catheterization, Cholecystectomy, Colonoscopy, Colon Resection, , Hysterectomy-Total, Other Amputation: No Fractures: No - *Social History Educational Level: Completed High School Smoking Status: Current every day smoker Tobacco Type: cigarettes # Packs/Day (cigarettes): 1 Alcohol Intake: never Alcohol Intake Frequency:: other Substance Use Type: denies use *Occupational Status:: retired Housing: apartment Household Members: children *Travel in the last 8 weeks: None - Psychiatric History Expresses thoughts of harming self/others: None Suicide Plan Description: No Plan Family Hx:: Cancer, Diabetes, Heart Attack, Hyperlipidemia, Hypertension, Stroke, Thyroid Disorder Review of Systems - Review of Systems Review of systems:: pertinent systems reviewed and negative unless documented below - *Neurologic Denies seizure-like activity Exam Vital signs and Labs for Last 24 Hours: Temp Pulse Resp BP Pulse Ox 97.6 F 92 H 18 107/58 L 95 02/08/19 08:00 02/08/19 08:00 02/08/19 08:00 02/08/19 08:00 02/08/19 08:00 Laboratory Results - last 24 hr 02/07/19 21:55: WBC 16.7 H, RBC 4.37, Hgb 12.9, Hct 40.3, MCV 92.3, MCH 29.7, MCHC 32.1, RDW 13.4, Plt Count 405, MPV 7.0 L, Neut % (Auto) 67.9, Lymph % (Auto) 23.5, [place] % (Auto) 6.5, Eos % (Auto) 1.4, Baso % (Auto) 0.6, Neut # (Auto) 11.4 H, Lymph # (Auto) 3.9, [place] # (Auto) 1.1 H, Eos # (Auto) 0.2, Baso # (Auto) 0.1, Total Counted 100, Neutrophils % (Manual) 71, Lymphocytes % (Manual) 27, Monocytes % (Manual) 1 L, Eosinophils % (Manual) 1, Platelet Estimate Normal, RBC Morphology Not Reportable, Anisocytosis 1+, ESR 38 H 02/07/19 21:55: Sodium 140, Potassium 4.4, Chloride 102, Carbon Dioxide 25, Anion Gap 17.4 H, BUN 40 H, Creatinine 2.15 H, Estimated Creat Clear 33, Estimated GFR 23 L, Est GFR ( Amer) 27 L, Glucose 128 H, Calcium 8.9, Total Bilirubin 0.5, AST 31, ALT 49, Alkaline Phosphatase 79, Troponin I < 0.02, C-Reactive Protein 1.9 H, Total Protein 7.2, Albumin 3.5, Globulin 3.7 H, Albumin/Globulin Ratio 0.9 L, Amylase 95, Lipase 195 02/07/19 21:55: Lactate 3.8 H 02/07/19 21:55: Stl Aeromonas (PCR) Not detected, Stl C. cayetanensis PCR Not detected, Stool Rotavirus (PCR) Not detected, Stl Adenov F 40/41 PCR Not detected, Stool Astrovirus (PCR) Not detected, Stool Campylobacter PCR Not detected, Stl C.difficile Tox PCR Not
--- NOTE | 2019-02-08 08:50 | HMH.PHAINT ---
MEDICATION RECONCILIATION COMPLETED ON PATIENT USING EXTERNAL FILL HISTORY FROM PHARMACY. -AMADO RICK, KIRTID
[2019-02-08 11:58] LABS: POC Glucose,Bedside 167 (70-110)
--- NOTE | 2019-02-08 15:50 | HMH.PHAINT ---
DISCHARGE COUNSELING COMPLETED ON PATIENT. ONLY NEW MEDICATION IS A COURSE OF MACROBID FOR UTI. PATIENT COUNSELED TO COMPLETE ENTIRE COURSE. PATIENT VERBALIZED UNDERSTANDING. THIS PRESCRIPTION WAS SENT TO CLINIC PHARMACY. -AMADO RICK PHARMD
== END 2019-02-08 16:15 | disposition home or self-care (01) | DRG 690 ==
LOC: ER 21:36 → 2ND 02-08 01:11
PROVIDERS: Admitting Provider Internal Medicine Adolescent Medicine; Emergency Provider Emergency Medicine; PCP Internal Medicine; Visit Provider Internal Medicine Adolescent Medicine
DX: N39.0 Urinary tract infection, site not specified (principal); K52.9 Noninfective gastroenteritis and colitis, unspecified; T18.8XXA Foreign body in other parts of alimentary tract, initial encounter; E11.9 Type 2 diabetes mellitus without complications; I10 Essential (primary) hypertension; E78.5 Hyperlipidemia, unspecified; Z72.0 Tobacco use; D64.9 Anemia, unspecified; E03.9 Hypothyroidism, unspecified; J44.9 Chronic obstructive pulmonary disease, unspecified; Z79.82 Long term (current) use of aspirin; Z79.84 Long term (current) use of oral hypoglycemic drugs; Z79.899 Other long term (current) drug therapy
CPT/HCPCS: 36415; 71046; 74176; 80048; 80053; 81001; 82150; 82962; 83605; 83690; 83735; 84484; 85007; 85025; 85651; 86140; 87040; 87086; 87088; 87186; 87507; 93005; 96365; 96366; 96367; 96375; 99285; J2405; J2543

== ENCOUNTER → 2019-02-15 14:49 | Outpatient (CLI) | payer MEDICARE, MEDICAID, SELFPAY ==
--- NOTE | 2019-02-15 14:54 | XR_ITS ---
XR KUB HISTORY: ITS.REASON: MATALIICFB IN ABD ORDERING PHYSICIAN: Salvador Zamorano PATIENT AGE: 73 years COMPARISON: None FINDINGS: A metallic foreign body is once again noted in the right lower quadrant overlying the iliac region not significant change from a prior abdomen CT of 02/07/2019. There is mild lumbar scoliosis convex left. Sclerotic lesion involves the left ilium and there are mild degenerative changes in the spine. No evidence of intestinal obstruction. IMPRESSION: Persistent metallic foreign body which appears to represent a coin overlies the right lower quadrant
== END ==
PROVIDERS: PCP Internal Medicine; Visit Provider Internal Medicine
DX: T18.2XXA Foreign body in stomach, initial encounter (principal)
CPT/HCPCS: 74018

== ENCOUNTER → 2019-02-21 14:28 | Outpatient (POV) | payer MEDICARE, MEDICAID, SELFPAY ==
[2019-02-21 14:49] VITALS: BP 121/68; PULSE 94; RESP 18; O2SAT 98; BMI 33.1
--- NOTE | 2019-02-22 08:43 | HMH.PAINSOAP ---
[facility] Pain Management SOAP Note Subjective:: Patient is a pleasant 72-year-old white female who presents today for follow-up. The patient was seen back in July for increased low back pain and knee pain. She is tried and failed SI joint injections, lumbar steroid injections, RFA's, facet joint injections. At that time, we did discuss a neurostimulator trial. The patient did plan to go for a psychological evaluation, but was unable to go secondary to family issues. She is having pain constantly. She states this mostly in her low back going into her legs and running into her arms. Does rate her pain an 8 out of 10 today. She has tried and failed medications. She is interested again and doing a neurostimulator. The patient is continuing home stretching program and she is also doing NSAIDs. ROS General: no recent weight change, no fever, no sleep disturbances Respiratory: no cough, no shortness of air, no recurring pulmonary infections Cardiovascular/Peripheral Vascular: No chest pain, No palpitations, no edema, no shortness of breath. Gastrointestinal: no incontinence, normal bowel movements reported Genitourinary: no incontinence Musculoskeletal: Back pain, neck pain, leg pain, arm pain Psychiatric: normal mood/ affect, [denies depression], [denies anxiety] Neurological: [denies weakness in extremities], [denies balance issues] Objective:: Physical Exam General: Alert and oriented x3, no acute distress, pleasant and cooperative, [on room air] Lungs: Resps E/U, Symmetrical chest expansion, Eyes: PERRL Musculoskeletal: Flexion and extension of lumbar spine somewhat guarded secondary to pain, deep tendon reflexes normal, strength in upper and lower extremities [5/5], [abnormal gait noted] Neurological: speech clear, 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 We will see if she is a candidate for neurostimulator trial. I do believe it would benefit her to have a lead placed for her cervical pain along with her low back pain. Patient is not on any anticoagulation therapy. She does understand the realistic goals of the treatment. We will see her after her psychological evaluation. She is been instructed to call the office if she has any concerns prior to this appointment. Dr. Hinojosa has reviewed this note and agrees with this plan of care. This note was dictated using voice recognition software and may contain errors or omissions
== END ==
PROVIDERS: PCP Internal Medicine; Visit Provider Clinical Nurse Specialist Family Health
DX: M47.896 Other spondylosis, lumbar region (principal); M51.36 Other intervertebral disc degeneration, lumbar region
CPT/HCPCS: 99212

== ENCOUNTER 2019-02-24 14:34 | Emergency (ER) | payer MEDICARE, MEDICAID, SELFPAY ==
[2019-02-24 14:39] VITALS: BP 98/45; PULSE 70; RESP 28; TEMP 36.8; O2SAT 92; BMI 31.7
[2019-02-24 14:42] VITALS: BMI 33.5
--- NOTE | 2019-02-24 14:43 | XR_ITS ---
XR chest portable HISTORY: ITS.REASON: SOA ORDERING PHYSICIAN: Nicolas Dickson MD PATIENT AGE: 73 years COMPARISON: 02/07/2019 FINDINGS: The cardiomediastinal silhouette and pulmonary vascularity are within normal limits. There is increased density in the left lung base and may represent an area of pleural thickening or effusion. The vague opacity in the right upper lobe is once again noted and is felt to be due to the overlying rib. Increased markings are present in the right lower lung zone may be due to an area of atelectasis or infiltrate. Consider PA and lateral chest for further evaluation. There is COPD with chronic change. IMPRESSION: COPD with chronic change with pleural thickening or effusion in the left lung base with atelectasis or infiltrate in the right lower lobe. Recommend upright PA and lateral chest for further evaluation if patient can tolerate.
--- NOTE | 2019-02-24 14:50 | HMH.EDGENADL ---
ED Disposition Clinical Impression: COPD (chronic obstructive pulmonary disease), Acute exacerbation of chronic obstructive airways disease Disposition: Home, Self-Care Condition on Discharge: Good Instructions: DI for Chronic Obstructive Pulmonary Disease, DI for Shortness of Breath Prescriptions: Doxycycline Hyclate [Doxycycline 100mg Capsule] 100 mg PO BID 8 Days #16 cap predniSONE [Prednisone 50mg Tab] 50 mg PO DAILY 5 Days #5 tab Referrals: Salvador Zamorano [Primary Care Provider] - Time of Disposition: 16:57 - Critical Care Critical Care Time: No Attestation: On , the high probability of a clinically significant, sudden or life threatening deterioration of the following system(s) required my full and direct attention, intervention and personal management. The time I documented below is in addition to time spent performing reported procedures but includes the following listed in this critical care notation. Medical Decision Making - Medical Records Medical records reviewed: Yes: I reviewed the patient's medical records. - Eric Inquiry Pt receiving controlled substance: No Eric was queried for this patient: No Vital Signs: 02/24/19 14:39 02/24/19 15:40 02/24/19 16:44 Temperature 98.2 F Temperature Source Temporal Artery Scan Pulse Rate 90 Pulse Rate [Right Brachial] 70 64 Respiratory Rate 28 H Blood Pressure [Right Arm] 98/45 L 107/57 L Blood Pressure Mean [Right Arm] 62 73 Blood Pressure Source [Right Arm] Automatic Cuff Blood Pressure Position [Right Arm] Sitting 02 Sat by Pulse Oximetry 92 L 93 L 93 L Oxygen Delivery Method Room Air Room Air - Lab Data Lab results reviewed: Yes: I reviewed the patient's lab results. Lab Results 02/24/19 14:47: Specimen Source L radial, O2 % 4lpm, ABG pH 7.40, ABG pCO2 45.4 H, ABG pO2 60.6 L, ABG HCO3 27.4 H, ABG Total CO2 28.8 H, ABG O2 Saturation 89 L, ABG Base Excess 2.6 H, Kishore Test Acceptable 02/24/19 14:50: WBC 11.6 H, RBC 4.52, Hgb 12.5, Hct 41.2, MCV 91.1, MCH 27.7, MCHC 30.4 L, RDW 13.3, Plt Count 381, MPV 7.0 L, Neut % (Auto) 46.7, Lymph % (Auto) 43.8, [place] % (Auto) 6.3, Eos % (Auto) 1.7, Baso % (Auto) 1.4, Neut # (Auto) 5.4, Lymph # (Auto) 5.1 H, [place] # (Auto) 0.7, Eos # (Auto) 0.2, Baso # (Auto) 0.2 02/24/19 14:50: Sodium 142, Potassium 4.3, Chloride 103, Carbon Dioxide 32, Anion Gap 11.3, BUN 27 H, Creatinine 1.08 H, Estimated Creat Clear 66, Estimated GFR 50 L, Est GFR ( Amer) 60, Glucose 100, Calcium 9.2, Total Bilirubin 0.4, AST 35, ALT 43, Alkaline Phosphatase 75, Total Protein 7.5, Albumin 3.7, Globulin 3.8 H, Albumin/Globulin Ratio 1.0 L 02/24/19 14:50: Lactate 2.4 H 02/24/19 14:50: D-Dimer 456 H* 02/24/19 16:47: Urine Color Yellow, Urine Appearance Clear, Urine pH 6.0, Ur Specific [place] 1.010, Urine Protein Negative, Urine Glucose (UA) Negative, Urine Ketones Negative, Urine Blood Negative, Urine Nitrate Negative, Urine Bilirubin Negative, Urine Urobilinogen 0.2, Ur Leukocyte Esterase 1+ A Result diagrams: 02/24/19 14:50 02/24/19 14:50 Orders (Tests/Meds): ED MEDICATIONS Generic Name Dose Route Start Last Admin Trade Name Freq PRN Reason Stop Dose Admin Levalbuterol HCl 1.25 mg 02/24/19 14:47 02/24/19 15:40 Xopenex 1.25mg/3ml Neb IH 03/26/19 14:46 1.25 mg TIDP PRN Administration Shortness Of Breath Discontinued Medications Generic Name Dose Route Start Last Admin Trade Name Freq PRN Reason Stop Dose Admin Methylprednisolone Sodium Succinate 125 mg 02/24/19 14:48 02/24/19 15:06 Solu-Medrol 125mg/2ml Vial IV 02/24/19 14:49 125 mg ONCE ONE Administration ORDERS Category Date Time Status CXR 2 view (NOT portable) [XR chest 2V] Stat Exams 02/24/19 16:00 Taken UA [Urinalysis and Microscopic] Stat Lab 02/24/19 16:47 Results Blood Culture Stat Micro 02/24/19 14:50 Received Urine Culture Stat Micro 02/24/19 16:47 Received General Adult HPI - General Chief comp
--- NOTE | 2019-02-24 14:53 | ED_ITS ---
ED Disposition Clinical Impression: COPD (chronic obstructive pulmonary disease), Acute exacerbation of chronic obstructive airways disease Disposition: Home, Self-Care Condition on Discharge: Good Instructions: DI for Chronic Obstructive Pulmonary Disease, DI for Shortness of Breath Prescriptions: Doxycycline Hyclate [Doxycycline 100mg Capsule] 100 mg PO BID 8 Days #16 cap predniSONE [Prednisone 50mg Tab] 50 mg PO DAILY 5 Days #5 tab Referrals: Salvador Zamorano [Primary Care Provider] - Time of Disposition: 16:57 - Critical Care Critical Care Time: No Attestation: On , the high probability of a clinically significant, sudden or life threatening deterioration of the following system(s) required my full and direct attention, intervention and personal management. The time I documented below is in addition to time spent performing reported procedures but includes the following listed in this critical care notation. Medical Decision Making - Medical Records Medical records reviewed: Yes: I reviewed the patient's medical records. - Eric Inquiry Pt receiving controlled substance: No Eric was queried for this patient: No Vital Signs: 02/24/19 14:39 02/24/19 15:40 02/24/19 16:44 Temperature 98.2 F Temperature Source Temporal Artery Scan Pulse Rate 90 Pulse Rate [Right Brachial] 70 64 Respiratory Rate 28 H Blood Pressure [Right Arm] 98/45 L 107/57 L Blood Pressure Mean [Right Arm] 62 73 Blood Pressure Source [Right Arm] Automatic Cuff Blood Pressure Position [Right Arm] Sitting 02 Sat by Pulse Oximetry 92 L 93 L 93 L Oxygen Delivery Method Room Air Room Air - Lab Data Lab results reviewed: Yes: I reviewed the patient's lab results. Lab Results 02/24/19 14:47: Specimen Source L radial, O2 % 4lpm, ABG pH 7.40, ABG pCO2 45.4 H, ABG pO2 60.6 L, ABG HCO3 27.4 H, ABG Total CO2 28.8 H, ABG O2 Saturation 89 L , ABG Base Excess 2.6 H, Kishore Test Acceptable 02/24/19 14:50: WBC 11.6 H, RBC 4.52, Hgb 12.5, Hct 41.2, MCV 91.1, MCH 27.7, MCHC 30.4 L, RDW 13.3, Plt Count 381, MPV 7.0 L, Neut % (Auto) 46.7, Lymph % (Auto) 43.8, [place] % (Auto) 6.3, Eos % (Auto) 1.7, Baso % (Auto) 1.4, Neut # (Auto) 5.4, Lymph # (Auto) 5.1 H, [place] # (Auto) 0.7, Eos # (Auto) 0.2, Baso # (Auto) 0.2 02/24/19 14:50: Sodium 142, Potassium 4.3, Chloride 103, Carbon Dioxide 32, Anion Gap 11.3, BUN 27 H, Creatinine 1.08 H, Estimated Creat Clear 66, Estimated GFR 50 L, Est GFR ( Amer) 60, Glucose 100, Calcium 9.2, Total Bilirubin 0.4, AST 35, ALT 43, Alkaline Phosphatase 75, Total Protein 7.5, Albumin 3.7, Globulin 3.8 H, Albumin/Globulin Ratio 1.0 L 02/24/19 14:50: Lactate 2.4 H 02/24/19 14:50: D-Dimer 456 H* 02/24/19 16:47: Urine Color Yellow, Urine Appearance Clear, Urine pH 6.0, Ur Specific [place] 1.010, Urine Protein Negative, Urine Glucose (UA) Negative, Urine Ketones Negative, Urine Blood Negative, Urine Nitrate Negative, Urine Bilirubin Negative, Urine Urobilinogen 0.2, Ur Leukocyte Esterase 1+ A Result diagrams: 02/24/19 14:50 02/24/19 14:50 Orders (Tests/Meds): ED MEDICATIONS Generic Name Dose Route Start Last Admin Trade Name Freq PRN Reason Stop Dose Admin Levalbuterol HCl 1.25 mg 02/24/19 14:47 02/24/19 15:40 Xopenex 1.25mg/3ml Neb IH 03/26/19 14:46 1.25 mg
--- NOTE | 2019-02-24 15:09 | PC.NURSE ---
RT AT BS
[2019-02-24 15:18] LABS: Alanine Aminotransferase 43 U/L (12-78); Albumin Level 3.7 gm/dL (3.4-5.0); Alkaline Phosphatase 75 U/L (46-116); Anion Gap 11.3 mEq/L (5-15); Aspartate Amino Transferase 35 U/L (15-37); Bilirubin,Total 0.4 mg/dL (0.2-1.0); Blood Urea Nitrogen 27 mg/dL (7-18); Calcium 9.2 mg/dL (8.5-10.1); Carbon Dioxide 32 mmol/L (21.0-32.0); Chloride 103 mmol/L (98-107); Creatinine Clearance Estimated 66 mL/min (50-200); Creatinine,Serum 1.08 mg/dL (0.55-1.02); Estimated Glomerular Filt Rate 50 ml/min (>60); GFR (African American) 60 ML/MIN (>60); Globulin 3.8 gm/dl (1.3-3.2); Glucose 100 mg/dL (74-106); Potassium 4.3 mmoL/L (3.5-5.1); Sodium 142 mmol/L (136-145); Total Protein,Serum 7.5 gm/dL (6.4-8.2)
[2019-02-24 15:25] LABS: ABG Base Excess 2.6 mmol/L (-2.4-2.3); ABG HCO3 27.4 mmhg (22.0-26.0); ABG Oxygen Saturation 89 % (90-100); ABG PCO2 45.4 mmhg (35.0-45.0); ABG PO2 60.6 mmhg (80-100); ABG TCO2 28.8 mmhg (23-27); Allen's Test ACCEPTABLE; Oxygen 4LPM %; Source L RADIAL
[2019-02-24 15:26] LABS: Lactic Acid 2.4 mmol/L (0.4-2.0)
[2019-02-24 15:27] LABS: Basophils # 0.2 K/mm3 (0-0.2); Basophils % 1.4 % (0.1-2.0); Eosinophils # 0.2 K/mm3 (0.0-0.4); Eosinophils % 1.7 % (0.1-12.0); Hematocrit 41.2 % (37.0-47.0); Hemoglobin 12.5 g/dL (12.2-16.2); Lymphocytes # 5.1 K/mm3 (0.7-4.5); Lymphocytes % 43.8 % (10-50); Mean Corpuscular HGB Conc 30.4 g/dL (31.8-35.4); Mean Corpuscular Hemoglobin 27.7 pg (27.0-31.2); Mean Corpuscular Volume 91.1 fl (81-99); Monocytes # 0.7 K/mm3 (0.1-1.0); Monocytes % 6.3 % (1.7-9.3); Neutrophils # 5.4 K/mm3 (1.8-7.8); Neutrophils % 46.7 % (37.0-80.0); Platelet Count 381 K/mm3 (142-424); Red Blood Count 4.52 M/mm3 (4.20-5.40); Red Cell Distribution Width 13.3 % (11.5-17.5); White Blood Count 11.6 K/mm3 (4.8-10.8)
[2019-02-24 15:40] VITALS: PULSE 90; O2SAT 93
--- NOTE | 2019-02-24 16:00 | XR_ITS ---
XR chest 2V HISTORY: Shortness of breath, cough, low 02 saturation ITS.REASON: radiologist request ORDERING PHYSICIAN: Nicolas Dickson MD PATIENT AGE: 73 years COMPARISON: 02/24/2019 FINDINGS: Previously noted density in the right lung base is less apparent likely due to artifact. Chronic changes are present in the left lower lobe similar to an older exam of 08/03/2017 and may be due to pericardial fat pad. No lobar consolidation or collapse. IMPRESSION: No acute finding
[2019-02-24 16:07] LABS: D-Dimer 456 ng/mL (0-400)
[2019-02-24 16:44] VITALS: BP 107/57; PULSE 64; O2SAT 93
[2019-02-24 16:51] LABS: Microscopic, Urine URINE MICROSCOPIC (MICROSCOPIC)
[2019-02-24 16:54] LABS: Appearance,Urine CLEAR (Clear); Bilirubin,Urine Negative (Negative); Blood, Urine Negative (Negative); Color,Urine YELLOW (Yellow); Glucose,Urine (UA) Negative (Negative); Ketones,Urine Negative (Negative); Leukocyte Esterase,Urine 1+ (Negative); Nitrate,Urine Negative (Negative); Protein,Urine Negative (Negative); Urobilinogen,Urine 0.2 EU/dl (0.2)
[2019-02-24 17:16] VITALS: BP 124/81; PULSE 72; RESP 22; TEMP 36.8; O2SAT 97
[2019-02-24 17:23] LABS: Bacteria,Urine Trace /lpf
[2019-02-24 19:03] LABS: Reflex Lactic Add Lactic Reflex
== END 2019-02-24 17:17 | disposition home or self-care (01) ==
PROVIDERS: Emergency Provider Emergency Medicine; PCP Internal Medicine
DX: J44.1 Chronic obstructive pulmonary disease with (acute) exacerbation (principal); E11.9 Type 2 diabetes mellitus without complications; E78.5 Hyperlipidemia, unspecified; I10 Essential (primary) hypertension; F17.210 Nicotine dependence, cigarettes, uncomplicated; R82.90 Unspecified abnormal findings in urine
CPT/HCPCS: 71045; 71046; 80053; 81001; 82803; 83605; 85025; 85378; 87040; 87077; 87086; 87186; 96374; 99284

== ENCOUNTER 2019-02-25 11:49 | Outpatient (CLI) | payer MEDICARE, MEDICAID, SELFPAY ==
[2019-02-25 12:10] VITALS: BP 109/59; PULSE 83; RESP 20; TEMP 36.9; O2SAT 95
== END 2019-02-25 12:50 | disposition home or self-care (01) ==
LOC: INF 11:51
PROVIDERS: PCP Internal Medicine; Visit Provider Emergency Medicine
DX: J44.1 Chronic obstructive pulmonary disease with (acute) exacerbation (principal)
CPT/HCPCS: 96374

== ENCOUNTER 2019-02-25 16:28 | Observation (INO) ==
--- NOTE | 2019-02-25 16:50 | Emergency Department Note ---
ED Disposition Clinical Impression: Bacteremia Disposition: Admitted as Observation Condition on Discharge: Good - Critical Care Critical Care Time: No Attestation: On 02/25/19, the high probability of a clinically significant, sudden or life threatening deterioration of the following system(s) required my full and direct attention, intervention and personal management. The time I documented below is in addition to time spent performing reported procedures but includes the following listed in this critical care notation. Medical Decision Making - Eric Inquiry Pt receiving controlled substance: No Vital Signs: 02/25/19 16:45 02/25/19 19:23 Temperature 98.7 F 97.7 F Temperature Source Oral Oral Pulse Rate [Right Radial] 98 H 97 H Respiratory Rate 20 18 Blood Pressure [Right Arm] 126/63 120/70 Blood Pressure Mean [Right Arm] 84 86 Blood Pressure Source [Right Arm] Automatic Cuff Automatic Cuff Blood Pressure Position [Right Arm] Sitting Sitting 02 Sat by Pulse Oximetry 93 L 91 L Oxygen Delivery Method Room Air Room Air - Lab Data Lab Results 02/25/19 17:46: WBC 13.6 H, RBC 4.33, Hgb 11.7 L, Hct 39.1, MCV 90.3, MCH 27.1, MCHC 30.0 L, RDW 13.4, Plt Count 404, MPV 7.1 L, Neut % (Auto) 86.2 H, Lymph % (Auto) 10.8, [place] % (Auto) 2.9, Eos % (Auto) 0.1, Baso % (Auto) 0.1, Neut # (Auto) 11.8 H, Lymph # (Auto) 1.5, [place] # (Auto) 0.4, Eos # (Auto) 0.0, Baso # (Auto) 0.0, Total Counted 100, Neutrophils % (Manual) 87 H, Band Neutrophils % 1.0, Lymphocytes % (Manual) 11, Monocytes % (Manual) 1 L, Platelet Estimate Slight increase, Hypochromasia 1+ 02/25/19 17:46: Lactate 4.4 H 02/25/19 17:46: Sodium 139, Potassium 4.7, Chloride 99, Carbon Dioxide 26, Anion Gap 18.7 H, BUN 44 H D, Creatinine 1.43 H D, Estimated Creat Clear 49, Estimated GFR 36 L, Est GFR ( Amer) 44 L D, Glucose 151 H, Calcium 9.6, Total Bilirubin 0.5, AST 29, ALT 43, Alkaline Phosphatase 74, Total Protein 7.7, Albumin 4.0, Globulin 3.7 H, Albumin/Globulin Ratio 1.1 Result diagrams: 02/25/19 17:46 02/25/19 17:46 Orders (Tests/Meds): ED MEDICATIONS Generic Name Dose Route Start Last Admin Trade Name Freq PRN Reason Stop Dose Admin Alprazolam 1 mg 02/25/19 19:26 Xanax 1mg Tablet PO 03/27/19 19:25 TIDP PRN Anxiety Amitriptyline HCl 25 mg 02/25/19 21:00 Elavil 25mg Tablet PO 03/27/19 20:59 HS CONG Aspirin 81 mg 02/26/19 09:00 Aspirin 81mg Enteric Coated Tablet PO 03/28/19 08:59 DAILY [facility] Furosemide 40 mg 02/26/19 09:00 Lasix 40mg Tablet PO 03/28/19 08:59 DAILY [facility] Vancomycin HCl 1,750 mg/ 250 mls @ 125 mls/hr 02/25/19 19:00 Sodium Chloride IV 02/25/19 20:59 ONCE ONE Sodium Chloride 2,610 mls @ 1,305 mls/hr 02/25/19 19:43 02/25/19 19:48 Sod Chlor 0.9% 1000ml Bag 30 ml/kg infuse over 2 hr (2610 ml) 02/25/19 21:42 1,305 mls/hr IV Administration .Q2H ONE Insulin Human Lispro 0 unit 02/25/19 21:00 Humalog 100 Units/Ml 3ml Vial (Ssi) SQ 03/27/19 20:59 ACHS [facility] Protocol Levothyroxine Sodium 100 mcg 02/26/19 09:00 Synthroid 100mcg (0.1mg) Tablet PO 03/28/19 08:59 DAILY [facility] Lisinopril 2.5 mg 02/26/19 09:00 Zestril 2.5mg Tablet PO 03/28/19 08:59 DAILY [facility] Miscellaneous 1 each 02/25/19 18:45 02/25/19 19:27 Vancomycin Consult Request NOTAPPLIC 02/26/19 06:35 1 each [facility] Administration Miscellaneous 1 each 02/25/19 19:30 Vancomycin Consult Request * 03/27/19 19:29 [facility] Montelukast Sodium 10 mg 02/25/19 21:00 Singulair 10mg Tablet PO 03/27/19 20:59 HS [facility] Non-Formulary Medication 10 mg 02/25/19 21:00 Bisoprolol Fumarate [Bisoprolol 10mg Tablet] PO 03/27/19 20:59 HS [facility] Non-Formulary Medication 2 puff 02/25/19 19:26 Levalbuterol Tartrate [Levalbuterol Tartrate Hfa] IH Q4HP PRN Shortness Of Breath Non-Formulary Medication 100 mg 02/25/19 21:00 Milnacipran Hcl [Savella] PO 03/27/19 20:59 BID CONG Non-Formulary Medication 50 mg 02/26/19 09:00 Prednisone [Prednisone 50mg Tab] PO 03/28/19 08:59 DAILY CONG Non-Formulary Medication 20 mg 02/25/19 21:00 Rosuvastatin Calcium PO 03/27/19 20:59 HS [facility] Non-Formulary Medication 900 mg 02/25/19 21:00 Gabapentin [Gabapentin 300mg Cap] PO 03/27/19 20:59 HS [facility] ORDERS Category Date Time Status Blood Culture Stat Micro 02/25/19 17:46 Received - Physician Consults Physician Consulted: Narayan Newton Time: 18:34 Reason -: Admission Comment/Response: Recommends to admit the patient to the hospital. We discussed the patient's clinical information, including history, exam, laboratory and radiology results and ED course. Per hospital procedure, I will write temporary bridge inpatient orders on the patient. Specific orders requested by the admitting physician: Vancomycin - Tissue Perfus/Sepsis Re-Eval Reperfusion Exam Performed: Yes Date Performed: 02/25/19 Time Performed: 19:55 Sepsis Follow-Up: Yes: Respiratory exam, Cardiovascular exam, Capillary refill, Peripheral pulse strength, Peripheral pulse location, Skin exam, Vital Signs Medical Decision Narrative: Per laboratory, 1 of 2 blood culture bottles PCR positive for Staphylococcus, meCA positive. The other bottle is negative. Urine culture shows multiple organisms, suggest contamination. Patient meets sepsis criteria. Vancomycin is not monotherapy. Discussed with Dr. Busch, he requests adding tobramycin. General Adult HPI - General Stated complaint: reassessed per Edward Zamorano Time Seen by Provider: 02/25/19 16:49 - History of Present Illness HPI narrative: The patient was seen here yesterday for low blood pressure and low oxygen sa turation and diagnosed with exacerbation of COPD. She had blood cultures drawn. She received a call today from her daughter that blood culture was positive for MRSA and she needed to come to the hospital right away because she was septic. The patient's daughter works at her former primary care physician's office, not her current primary care physician, who is Dr. Zamorano. Apparently the result got called to the wrong physician. The patient says that she feels fine today, just shaky from getting steroids. Denies fever. Breathing feels fine. Has a cough. Recent UTI, no current urinary symptoms. - Related Data Home Medications Medication Instructions Recorded Confirmed gabapentin 300 mg capsule 900 mg PO HS 10/06/17 02/25/19 metformin 500 mg tablet 500 mg PO BID 10/06/17 02/25/19 sitagliptin 100 mg tablet 100 mg PO DAILY 10/06/17 02/25/19 alprazolam 1 mg tablet 1 mg PO TIDP PRN tab 08/24/18 02/25/19 furosemide 40 mg tablet 40 mg PO DAILY tab 08/24/18 02/25/19 omeprazole 40 mg capsule,delayed 40 mg PO BID cap 08/24/18 02/25/19 release Amitriptyline HCl [Elavil 25mg 25 mg PO HS 02/07/19 02/25/19 tablet] Beclomethasone Dipropionate [Qnasl] 8.7 gm NS BID 02/07/19 02/25/19 Bethanechol Chloride [Urecholine] 25 mg PO TID 02/07/19 02/25/19 Bisoprolol Fumarate [Bisoprolol 10 mg PO HS 02/07/19 02/25/19 10mg Tablet] [place] 40 mg PO DAILY 02/07/19 02/25/19 Cyclobenzaprine HCl 5 mg PO HS 02/07/19 02/25/19 [Cyclobenzaprine 5mg Tab] Diclofenac Sodium [Diclofenac 75mg 75 mg PO BID 02/07/19 02/25/19 Tab] Doxycycline Hyclate [Doxycycline 100 mg PO HS 02/07/19 02/25/19 100mg Capsule] Levalbuterol Tartrate 2 puff IH Q4HP PRN 02/07/19 02/25/19 [Levalbuterol Tartrate Hfa] Lisinopril [Lisinopril 2.5mg Tab] 2.5 mg PO DAILY 02/07/19 02/25/19 Meclizine HCl [Meclizine 25mg Tab] 25 mg PO TIDP PRN 02/07/19 02/25/19 Melatonin/Pyridoxine HCl (B6) 1 each PO HS 02/07/19 02/25/19 [Melatonin-Vit B6 3 mg-1 mg Tab] Milnacipran HCl [Sav[place]] 100 mg PO BID 02/07/19 02/25/19 Montelukast Sodium [Montelukast 10 mg PO HS 02/07/19 02/25/19 10mg Tab] Fluticasone Propionate 2 spry NS DAILY 02/08/19 02/25/19 Levothyroxine Sodium 100 mcg PO DAILY 02/08/19 02/25/19 [Levothyroxine 100mcg (0.1MG) Tab] Rosuvastatin Calcium 20 mg PO HS 02/08/19 02/25/19 Doxycycline Hyclate [Doxycycline 100 mg PO BID 02/25/19 02/25/19 100mg Capsule] predniSONE [Prednisone 50mg Tab] 50 mg PO DAILY 02/25/19 02/25/19 Previous Rx's Medication Instructions Recorded aspirin 81 mg tablet,delayed 81 mg PO DAILY #30 tab 02/16/19 release Allergies Allergy/AdvReac Type Severity Reaction Status Date / Time aripiprazole [From ABILIFY] Allergy Unknown Verified 02/07/19 21:50 ciprofloxacin [CIPROFLOXACIN] Allergy Unknown Verified 02/07/19 21:50 phenazopyridine Allergy Unknown Verified 02/07/19 21:50 [PHENAZOPYRIDINE] [facility] History - Hepatitis A Screen Attestation statement:: This patient has been screened for Hepatitis A risk factors. I have reviewed the patient's past medical history: Yes Medical History: Reports:: Asthma, Chronic Obstructive Pulmonary Disease (COPD), Diabetes Mellitus Type 2, Hyperlipidemia, Hypertension, Migraine Denies:: Cancer, Diabetes Mellitus Type 1, MRSA Other Medical History: Reports: Anemia, Arthritis, Cataracts, Hypothyroidism, Sinus Problems Laterality Cases: Bilateral: Tonsillectomy Other Surgeries: Yes: Appendectomy, Cardiac Catheterization, Cholecystectomy, Colonoscopy, Colon Resection, , Hysterectomy-Total, Other Amputation: No Fractures: No - Social History Smoking Status: Current every day smoker Tobacco Type: cigarettes # Packs/Day (cigarettes): 1 Alcohol Intake: never Alcohol Intake Frequency:: other Substance Use Type: denies use Occupational Status: retired Housing: apartment Household Members: children Family Hx:: Cancer, Diabetes, Heart Attack, Hyperlipidemia, Hypertension, Stroke, Thyroid Disorder ROS Obtained: Yes All systems reviewed & no additional complaints - Constitutional Constitutional: Denies fever(s) - ENT Ears, Nose, Mouth, and Throat: Reports other ("sinuses") - Cardiovascular Cardiovascular: Denies chest pain - Respiratory Respiratory: Yes cough, No dyspnea - Gastrointestinal Gastrointestingal: Denies: abdominal pain, diarrhea, vomiting - Neurologic Neurologic: Denies headache(s) Physical Exam - General General appearance: alert, in no apparent distress - Head Head exam: atraumatic, normocephalic - Eye Eye exam: Present: normal appearance, PERRL, EOMI - ENT ENT exam: Present: mucous membranes moist - Neck Neck exam: Present: normal inspection, trachea midline - Chest Chest inspection: Present: normal inspection, symmetric chest wall rise - Respiratory Respiratory exam: Present: normal lung sounds bilaterally. Absent: respiratory distress - Cardiovascular Cardiovascular exam: Present: regular rate, normal rhythm, normal heart sounds - Abdominal Exam Abdominal exam: Present: soft, normal bowel sounds. Absent: distention, tenderness - Extremities Exam Extremities exam: Present: normal inspection - Neurological Exam Neurological exam: Present: alert, oriented X3 - Psychiatric Psychiatric exam: Present: normal affect, normal mood - Skin Skin exam: Present: warm, dry
[2019-02-25 18:00] LABS: Basophils % 0.1 % (0.1-2.0); Eosinophils % 0.1 % (0.1-12.0); Hematocrit 39.1 % (37.0-47.0); Hemoglobin 11.7 g/dL (12.2-16.2); Lymphocytes # 1.5 K/mm3 (0.7-4.5); Lymphocytes % 10.8 % (10-50); Mean Corpuscular Hemoglobin 27.1 pg (27.0-31.2); Mean Corpuscular Volume 90.3 fl (81-99); Mean Platelet Volume 7.1 fl (7.4-10.4); Monocytes # 0.4 K/mm3 (0.1-1.0); Monocytes % 2.9 % (1.7-9.3); Neutrophils # 11.8 K/mm3 (1.8-7.8); Neutrophils % 86.2 % (37.0-80.0); Platelet Count 404 K/mm3 (142-424); Red Blood Count 4.33 M/mm3 (4.20-5.40); Red Cell Distribution Width 13.4 % (11.5-17.5); White Blood Count 13.6 K/mm3 (4.8-10.8)
[2019-02-25 18:11] LABS: Hypochromasia 1+; Lymphocytes % 11 % (10-50); Monocytes % 1 % (2-9); Neutrophils % 87 % (42-76); Total Cells Counted 100
[2019-02-25 19:13] LABS: Albumin/Globulin Ratio 1.1 (1.1-1.8); Anion Gap 18.7 mEq/L (5-15); Bilirubin,Total 0.5 mg/dL (0.2-1.0); Calcium 9.6 mg/dL (8.5-10.1); Globulin 3.7 gm/dl (1.3-3.2); Potassium 4.7 mmoL/L (3.5-5.1); Total Protein,Serum 7.7 gm/dL (6.4-8.2)
--- NOTE | 2019-02-25 22:21 | Sepsis Event Note ---
Tissue Perfusion Evaluation Sepsis Re-Evaluation Performed: Yes Date Performed: 02/25/19 Time Performed: 22:21 Sepsis Follow-Up: Yes: Respiratory exam, Cardiovascular exam, Capillary refill, Peripheral pulse strength, Skin exam, Vital Signs Most Recent Vital Signs: Temperature 97.8 F 02/25/19 19:57 Temperature Source Oral 02/25/19 19:57 Pulse Rate 98 H 02/25/19 19:57 Respiratory Rate 18 02/25/19 19:57 Blood Pressure 149/63 H 02/25/19 19:57 Blood Pressure Mean 91 02/25/19 19:57 Blood Pressure Source Automatic Cuff 02/25/19 19:57 Blood Pressure Position Sitting 02/25/19 19:57 02 Sat by Pulse Oximetry 95 02/25/19 19:57 Oxygen Delivery Method 02/25/19 19:57
--- NOTE | 2019-02-26 10:35 | History & Physical Report ---
*Admission Date: 02/25/19 *Chief complaint: Positive Blood Cultures *History of present illness: The patient was seen here yesterday for low blood pressure and low oxygen saturation and diagnosed with exacerbation of COPD. She had blood cultures drawn. She received a call today from her daughter that blood culture was positive for MRSA and she needed to come to the hospital right away because she was septic. The patient's daughter works at her former primary care physician's office, not her current primary care physician, who is Dr. Zamorano. Apparently the result got called to the wrong physician. The patient says that she feels fine today, just shaky from getting steroids. Denies fever. Breathing feels fine. Has a cough. Recent UTI, no current urinary symptoms. Above note per ER md yesterday. No complaints per patient this am. Concerned about her family and dog acquiring MRSA.. [facility] History I have reviewed the patient's past medical history: Yes Medical History: Reports:: Asthma, Chronic Obstructive Pulmonary Disease (COPD), Diabetes Mellitus Type 2, Hyperlipidemia, Hypertension, Migraine Denies:: Cancer, Diabetes Mellitus Type 1, MRSA *Have you ever received a pneumonia vaccine?: Yes *Have you received a flu vaccine this season?: Yes Other Medical History: Reports: Anemia, Arthritis, Cataracts, Hypothyroidism, Sinus Problems Laterality Cases: Bilateral: Tonsillectomy Other Surgeries: Yes: Appendectomy, Cardiac Catheterization, Cholecystectomy, Colonoscopy, Colon Resection, , Hysterectomy-Total, Other Amputation: No Fractures: No - *Social History Educational Level: Completed High School Smoking Status: Current some day smoker Tobacco Type: cigarettes # Packs/Day (cigarettes): 1 Alcohol Intake: never Alcohol Intake Frequency:: other Substance Use Type: denies use *Occupational Status:: retired Housing: apartment Household Members: children *Travel in the last 8 weeks: None - Psychiatric History Expresses thoughts of harming self/others: None Suicide Plan Description: No Plan Family Hx:: Cancer, Diabetes, Heart Attack, Hyperlipidemia, Hypertension, Stroke, Thyroid Disorder Review of Systems - Review of Systems Review of systems:: pertinent systems reviewed and negative unless documented below - *Neurologic Denies headache(s) Meds Home Medications Medication Instructions Recorded Confirmed Type gabapentin 300 mg capsule 900 mg PO HS 10/06/17 02/26/19 History metformin 500 mg tablet 500 mg PO BID 10/06/17 02/26/19 History sitagliptin 100 mg tablet 100 mg PO DAILY 10/06/17 02/26/19 History alprazolam 1 mg tablet 1 mg PO TIDP PRN tab 08/24/18 02/26/19 History furosemide 40 mg tablet 40 mg PO DAILYP PRN tab 08/24/18 02/26/19 History omeprazole 40 mg capsule,delayed 40 mg PO BID cap 08/24/18 02/26/19 History release Beclomethasone Dipropionate [Qnasl] 8.7 gm NS BID 02/07/19 02/26/19 History Bethanechol Chloride [Urecholine] 25 mg PO TID 02/07/19 02/26/19 History Bisoprolol Fumarate [Bisoprolol 10 mg PO HS 02/07/19 02/26/19 History 10mg Tablet] Cyclobenzaprine HCl 5 mg PO HS 02/07/19 02/26/19 History [Cyclobenzaprine 5mg Tab] Diclofenac Sodium [Diclofenac 75mg 75 mg PO BID 02/07/19 02/26/19 History Tab] Doxycycline Hyclate [Doxycycline 100 mg PO HS 02/07/19 02/26/19 History 100mg Capsule] Levalbuterol Tartrate 2 puff IH Q4HP PRN 02/07/19 02/26/19 History [Levalbuterol Tartrate Hfa] Lisinopril [Lisinopril 2.5mg Tab] 2.5 mg PO DAILY 02/07/19 02/26/19 History Meclizine HCl [Meclizine 25mg Tab] 25 mg PO TIDP PRN 02/07/19 02/26/19 History Melatonin/Pyridoxine HCl (B6) 1 each PO HS 02/07/19 02/26/19 History [Melatonin-Vit B6 3 mg-1 mg Tab] Milnacipran HCl [Savella] 100 mg PO BID 02/07/19 02/26/19 History Montelukast Sodium [Montelukast 10 mg PO HS 02/07/19 02/26/19 History 10mg Tab] Fluticasone Propionate 2 spry NS DAILY 02/08/19 02/26/19 History Levothyroxine Sodium 112 mcg PO DAILY 02/08/19 02/26/19 History [Levothyroxine 100mcg (0.1MG) Tab] Rosuvastatin Calcium 20 mg PO HS 02/08/19 02/26/19 History aspirin 81 mg tablet,delayed 81 mg PO DAILY #30 tab 02/16/19 02/26/19 Rx release Doxycycline Hyclate [Doxycycline 100 mg PO BID 02/25/19 02/26/19 History 100mg Capsule] predniSONE [Prednisone 50mg Tab] 50 mg PO DAILY 02/25/19 02/26/19 History Allergies Allergy/AdvReac Type Severity Reaction Status Date / Time aripiprazole [From ABILIFY] Allergy Unknown Verified 02/07/19 21:50 ciprofloxacin [CIPROFLOXACIN] Allergy Unknown Verified 02/07/19 21:50 phenazopyridine Allergy Unknown Verified 02/07/19 21:50 [PHENAZOPYRIDINE] Exam Vital signs and Labs for Last 24 Hours: Temp Pulse Resp BP Pulse Ox 97.7 F 89 17 138/66 94 L 02/26/19 07:30 02/26/19 08:00 02/26/19 08:00 02/26/19 07:30 02/26/19 08:00 Laboratory Results - last 24 hr 02/25/19 17:46: WBC 13.6 H, RBC 4.33, Hgb 11.7 L, Hct 39.1, MCV 90.3, MCH 27.1, MCHC 30.0 L, RDW 13.4, Plt Count 404, MPV 7.1 L, Neut % (Auto) 86.2 H, Lymph % (Auto) 10.8, [place] % (Auto) 2.9, Eos % (Auto) 0.1, Baso % (Auto) 0.1, Neut # (Auto) 11.8 H, Lymph # (Auto) 1.5, [place] # (Auto) 0.4, Eos # (Auto) 0.0, Baso # (Auto) 0.0, Total Counted 100, Neutrophils % (Manual) 87 H, Band Neutrophils % 1.0, Lymphocytes % (Manual) 11, Monocytes % (Manual) 1 L, Platelet Estimate Slight increase, Hypochromasia 1+ 02/25/19 17:46: Lactate 4.4 H 02/25/19 17:46: Sodium 139, Potassium 4.7, Chloride 99, Carbon Dioxide 26, Anion Gap 18.7 H, BUN 44 H D, Creatinine 1.43 H D, Estimated Creat Clear 49, Estimated GFR 36 L, Est GFR ( Amer) 44 L D, Glucose 151 H, Calcium 9.6, Total Bilirubin 0.5, AST 29, ALT 43, Alkaline Phosphatase 74, Total Protein 7.7, Albumin 4.0, Globulin 3.7 H, Albumin/Globulin Ratio 1.1 02/25/19 21:03: POC Glucose 214 H 02/25/19 21:20: Lactate 6.7 H 02/25/19 23:22: Lactate 3.3 H 02/26/19 04:05: Random Tobramycin 8.9 02/26/19 06:35: POC Glucose 113 H I & O for Last 24 hours: Intake & Output 02/23/19 02/24/19 02/25/19 02/26/19 11:59 11:59 11:59 11:59 Intake Total 1043 / 1043 Balance 1043 / 1043 Weight 202 lb 4 oz - Constitutional no acute distress, obese - *Routine HEENT Exam Head: Present: normocephalic, atraumatic, facial swelling Eye: Present: EOMI, PERRL ENT: Present: mucous membranes moist - *Routine Respiratory Exam Present: CTA bilaterally - *Routine Cardiovascular Exam Present: RRR - *Routine Abdominal Exam Present: soft, normoactive bowel sounds. Absent: tenderness - *Routine Extremities Exam Absent: cyanosis, clubbing, edema - *Routine Neurological Exam Present: alert, oriented X3 Assessment and Plan (1) Obesity Current visit: Yes Status: Acute Category: Medical Code(s): E66.9 - Obesity, unspecified (2) Bacteremia Current visit: Yes Status: Acute Category: Medical Code(s): R78.81 - Bacteremia PCR testing with ? MRSA - agree with admit... IV vanc. Await official cultures. (3) Acute exacerbation of chronic obstructive airways disease Current visit: No Status: Acute Category: Medical Code(s): J44.1 - Chronic obstructive pulmonary disease with (acute) exacerbation Improving with treatment from ER at prior visit... follow closely (4) CAD (coronary artery disease) Current visit: No Status: Chronic Qualifiers: Category: Medical Code(s): I25.10 - Atherosclerotic heart disease of [place] coronary artery without angina pectoris No symptoms at this point. Complicates her care. (5) COPD (chronic obstructive pulmonary disease) Current visit: No Status: Chronic Qualifiers: Category: Medical Code(s): J44.9 - Chronic obstructive pulmonary disease, unspecified (6) Diabetes Current visit: No Status: Chronic Qualifiers: Category: Medical Code(s): E11.9 - Type 2 diabetes mellitus without complications Complicates care... close observation. (7) Tobacco abuse Current visit: No Status: Chronic Category: Medical Code(s): Z72.0 - To bacco use
--- NOTE | 2019-02-26 14:15 | Pharmacy Consult Notes ---
- Pharmacy Consult Date: 02/25/19 Time: 14:13 Referring provider: DR. AGUDELO Reason for Consult:: VANCOMYCIN AND TOBRAMYCIN DOSING Allergies and ADEs:: Allergies Allergy/AdvReac Type Severity Reaction Status Date / Time aripiprazole [From ABILIFY] Allergy Unknown Verified 02/07/19 21:50 ciprofloxacin [CIPROFLOXACIN] Allergy Unknown Verified 02/07/19 21:50 phenazopyridine Allergy Unknown Verified 02/07/19 21:50 [PHENAZOPYRIDINE] Home Medications:: Home Medications Medication Instructions Recorded Confirmed Type gabapentin 300 mg capsule 900 mg PO HS 10/06/17 02/26/19 History metformin 500 mg tablet 500 mg PO BID 10/06/17 02/26/19 History sitagliptin 100 mg tablet 100 mg PO DAILY 10/06/17 02/26/19 History alprazolam 1 mg tablet 1 mg PO TIDP PRN tab 08/24/18 02/26/19 History furosemide 40 mg tablet 40 mg PO DAILYP PRN tab 08/24/18 02/26/19 History omeprazole 40 mg capsule,delayed 40 mg PO BID cap 08/24/18 02/26/19 History release Beclomethasone Dipropionate [Qnasl] 8.7 gm NS BID 02/07/19 02/26/19 History Bethanechol Chloride [Urecholine] 25 mg PO TID 02/07/19 02/26/19 History Bisoprolol Fumarate [Bisoprolol 10 mg PO HS 02/07/19 02/26/19 History 10mg Tablet] Cyclobenzaprine HCl 5 mg PO HS 02/07/19 02/26/19 History [Cyclobenzaprine 5mg Tab] Diclofenac Sodium [Diclofenac 75mg 75 mg PO BID 02/07/19 02/26/19 History Tab] Doxycycline Hyclate [Doxycycline 100 mg PO HS 02/07/19 02/26/19 History 100mg Capsule] Levalbuterol Tartrate 2 puff IH Q4HP PRN 02/07/19 02/26/19 History [Levalbuterol Tartrate Hfa] Lisinopril [Lisinopril 2.5mg Tab] 2.5 mg PO DAILY 02/07/19 02/26/19 History Meclizine HCl [Meclizine 25mg Tab] 25 mg PO TIDP PRN 02/07/19 02/26/19 History Melatonin/Pyridoxine HCl (B6) 1 each PO HS 02/07/19 02/26/19 History [Melatonin-Vit B6 3 mg-1 mg Tab] Milnacipran HCl [Savella] 100 mg PO BID 02/07/19 02/26/19 History Montelukast Sodium [Montelukast 10 mg PO HS 02/07/19 02/26/19 History 10mg Tab] Fluticasone Propionate 2 spry NS DAILY 02/08/19 02/26/19 History Levothyroxine Sodium 112 mcg PO DAILY 02/08/19 02/26/19 History [Levothyroxine 100mcg (0.1MG) Tab] Rosuvastatin Calcium 20 mg PO HS 02/08/19 02/26/19 History aspirin 81 mg tablet,delayed 81 mg PO DAILY #30 tab 02/16/19 02/26/19 Rx release Doxycycline Hyclate [Doxycycline 100 mg PO BID 02/25/19 02/26/19 History 100mg Capsule] predniSONE [Prednisone 50mg Tab] 50 mg PO DAILY 02/25/19 02/26/19 History Height: 1.65 m Weight: 91.739 kg Laboratory Results:: Laboratory Results - last 24 hr 02/25/19 17:46: WBC 13.6 H, RBC 4.33, Hgb 11.7 L, Hct 39.1, MCV 90.3, MCH 27.1, MCHC 30.0 L, RDW 13.4, Plt Count 404, MPV 7.1 L, Neut % (Auto) 86.2 H, Lymph % (Auto) 10.8, [place] % (Auto) 2.9, Eos % (Auto) 0.1, Baso % (Auto) 0.1, Neut # (Auto) 11.8 H, Lymph # (Auto) 1.5, [place] # (Auto) 0.4, Eos # (Auto) 0.0, Baso # (Auto) 0.0, Total Counted 100, Neutrophils % (Manual) 87 H, Band Neutrophils % 1.0, Lymphocytes % (Manual) 11, Monocytes % (Manual) 1 L, Platelet Estimate Slight increase, Hypochromasia 1+ 02/25/19 17:46: Lactate 4.4 H 02/25/19 17:46: Sodium 139, Potassium 4.7, Chloride 99, Carbon Dioxide 26, Anion Gap 18.7 H, BUN 44 H D, Creatinine 1.43 H D, Estimated Creat Clear 49, Estimated GFR 36 L, Est GFR ( Amer) 44 L D, Glucose 151 H, Calcium 9.6, Total Bilirubin 0.5, AST 29, ALT 43, Alkaline Phosphatase 74, Total Protein 7.7, Albumin 4.0, Globulin 3.7 H, Albumin/Globulin Ratio 1.1 02/25/19 21:03: POC Glucose 214 H 02/25/19 21:20: Lactate 6.7 H 02/25/19 23:22: Lactate 3.3 H 02/26/19 04:05: Random Tobramycin 8.9 02/26/19 06:35: POC Glucose 113 H 02/26/19 11:19: POC Glucose 104 02/26/19 12:15: Random Tobramycin 2.4 Medical History: Reports:: Asthma, Chronic Obstructive Pulmonary Disease (COPD), Diabetes Mellitus Type 2, Hyperlipidemia, Hypertension, Migraine Denies:: Cancer, Diabetes Mellitus Type 1, MRSA Assessment and Plan (1) Obesity Current visit: Yes Status: Acute Category: Medical Code(s): E66.9 - Obesity, unspecified (2) Bacteremia Current visit: Yes Status: Acute Category: Medical Code(s): R78.81 - Bacteremia (3) Acute exacerbation of chronic obstructive airways disease Current visit: No Status: Acute Category: Medical Code(s): J44.1 - Chronic obstructive pulmonary disease with (acute) exacerbation (4) CAD (coronary artery disease) Current visit: No Status: Chronic Qualifiers: Category: Medical Code(s): I25.10 - Atherosclerotic heart disease of [place] coronary artery without angina pectoris (5) COPD (chronic obstructive pulmonary disease) Current visit: No Status: Chronic Qualifiers: Category: Medical Code(s): J44.9 - Chronic obstructive pulmonary disease, unspecified (6) Diabetes Current visit: No Status: Chronic Qualifiers: Category: Medical Code(s): E11.9 - Type 2 diabetes mellitus without complications (7) Tobacco abuse Current visit: No Status: Chronic Category: Medical Code(s): Z72.0 - Tobacco use - Assessment and plan all Dx Assessment and Plan for all problems:: BASED ON PATIENT FACTORS, RECOMMEND VANCOMYCIN 1750 MG IV Q36H AND TOBRAMYCIN 360 MG IV Q36H. PHARMACY WILL OBTAIN A VANCOMYCIN TROUGH LEVEL PRIOR TO 3RD DOSE. TOBRAMYCIN LEVELS: 3.5-HOUR POST-INFUSION: 8.9 MCG/ML CALCULATED PEAK: 13.4 MCG/ML 11.5-HOUR POST-INFUSION: 2.4 MCG/ML CALCULATED TROUGH: 0.04 MCG/ML BASED ON TOBRAMYCIN LEVELS, RECOMMEND CONTINUING TOBRAMYCIN 360 MG IV Q36H. PHARMACY WILL CONTINUE TO MONITOR DAILY AND ADJUST APPROPRIATE.
--- NOTE | 2019-02-26 14:17 | Pharmacy Consult Notes ---
[facility] Pharmacy VTE Monitoring - Patient Demographics Admission date: 02/25/19 Report Date: 02/26/19 Time: 14:17 Allergies/Adverse Reactions: Patient Allergies aripiprazole [From ABILIFY] Allergy (Unknown, Verified 02/07/19 21:50) ciprofloxacin [CIPROFLOXACIN] Allergy (Unknown, Verified 02/07/19 21:50) phenazopyridine [PHENAZOPYRIDINE] Allergy (Unknown, Verified 02/07/19 21:50) Height: 1.65 m Weight: 91.739 kg Patient Problems: Current Active Problems Bacteremia (Acute) Obesity (Acute) - VTE Risk Labs: VTE Related Lab Results Hgb 11.7 g/dL (12.2-16.2) L 02/25/19 17:46 Hct 39.1 % (37.0-47.0) 02/25/19 17:46 Plt Count 404 K/mm3 (142-424) 02/25/19 17:46 BUN 44 mg/dL (7-18) H D 02/25/19 17:46 Creatinine 1.43 mg/dL (0.55-1.02) H D 02/25/19 17:46 Estimated Creat Clear 49 mL/min (50-200) 02/25/19 17:46 Was VTE Risk Assessment Performed: Yes VTE Score: 9 VTE Risk Level: Moderate Risk - Prophylaxis VTE Prophylaxis Ordered?: Yes Types of VTE Prophylaxis: TEDS Knee High Location of Applied Device: Bilateral Lower Extremeties
[2019-02-27 08:00] LABS: Basophils # 0.1 K/mm3 (0-0.2); Basophils % 0.6 % (0.1-2.0); Eosinophils # 0.1 K/mm3 (0.0-0.4); Eosinophils % 0.9 % (0.1-12.0); Hematocrit 35.7 % (37.0-47.0); Hemoglobin 10.8 g/dL (12.2-16.2); Lymphocytes # 7.4 K/mm3 (0.7-4.5); Lymphocytes % 52.2 % (10-50); Mean Corpuscular HGB Conc 30.1 g/dL (31.8-35.4); Mean Corpuscular Hemoglobin 27.7 pg (27.0-31.2); Mean Corpuscular Volume 91.8 fl (81-99); Mean Platelet Volume 7.2 fl (7.4-10.4); Monocytes # 0.8 K/mm3 (0.1-1.0); Monocytes % 5.5 % (1.7-9.3); Neutrophils # 5.8 K/mm3 (1.8-7.8); Neutrophils % 40.8 % (37.0-80.0); Platelet Count 359 K/mm3 (142-424); Red Blood Count 3.89 M/mm3 (4.20-5.40); Red Cell Distribution Width 13.5 % (11.5-17.5); White Blood Count 14.2 K/mm3 (4.8-10.8)
[2019-02-27 08:06] LABS: Anion Gap 13.7 mEq/L (5-15); Potassium 3.7 mmoL/L (3.5-5.1)
[2019-02-27 08:15] LABS: Eosinophils % 1 % (0-3); Lymphocytes % 64 % (10-50); Monocytes % 1 % (2-9); Neutrophils % 34 % (42-76); RBC Morphology Normal; Total Cells Counted 100
[2019-02-27 08:21] LABS: Calcium 8.5 mg/dL (8.5-10.1)
--- NOTE | 2019-02-27 08:37 | Discharge Summary ---
General - General Admission date:: 02/25/19 Discharge date: 02/27/19 HPI HPI: The patient was seen here yesterday for low blood pressure and low oxygen saturation and diagnosed with exacerbation of COPD. She had blood cultures drawn. She received a call today from her daughter that blood culture was positive for MRSA and she needed to come to the hospital right away because she was septic. Hospital Course Hospital Course: Patient was admitted to hospital, vancomycin and tobramycin was started because of risk of severe sepsis. Was elevated but she has recently been started on steroids. Lactic acid was elevated but she is also been on steroids and has had a COPD exacerbation. Of note over the next 24 hours 2 sets of blood cultures have been negative, and the original cultures that caused the consternation showed that one bottle was negative and one bottle ended up growing staph hominis-not MRSA. This clearly represents a contamination situation. Patient this morning feels great, has no problems. Labs showed improving renal function, in fact normalized renal function, and expected minimal leukocytosis from steroids. Plan will be to discharge patient home. She will finish up her prednisone and doxycycline originally prescribed from her original ER visit on February 24. I have encouraged her to follow-up with Dr. Zamorano in the next 3 to 4 days. Objective Vital signs: Temp Pulse Resp BP Pulse Ox 97.8 F 85 19 133/63 100 02/27/19 08:00 02/27/19 08:00 02/27/19 08:00 02/27/19 08:00 02/27/19 08:00 Narrative: Patient is pleasant, talkative, sitting up in the bed. No problems with p.o. intake. Lungs have some rhonchi but otherwise good air movement. No crackles. Heart rate regular. Blood pressure well controlled, no perfusion deficits. Neurologically intact, cranial nerves intact. Abdomen obese but soft. ENT exam otherwise clear. Results Labs on day of discharge: Labs from last 24 hours 02/27/19 02/27/19 02/27/19 07:53 07:53 07:53 WBC 14.2 H RBC 3.89 L Hgb 10.8 L Hct 35.7 L MCV 91.8 MCH 27.7 MCHC 30.1 L RDW 13.5 Plt Count 359 MPV 7.2 L Neut % (Auto) 40.8 Lymph % (Auto) 52.2 H [place] % (Auto) 5.5 Eos % (Auto) 0.9 Baso % (Auto) 0.6 Neut # (Auto) 5.8 Lymph # (Auto) 7.4 H [place] # (Auto) 0.8 Eos # (Auto) 0.1 Baso # (Auto) 0.1 Total Counted 100 Neutrophils % (Manual) 34 L Lymphocytes % (Manual) 64 H Monocytes % (Manual) 1 L Eosinophils % (Manual) 1 Platelet Estimate Normal RBC Morphology Normal Sodium 147 H Potassium 3.7 D Chloride 108 H Carbon Dioxide 29 Anion Gap 13.7 BUN 24 H D Creatinine 0.85 D Estimated Creat Clear 73 Estimated GFR 66 Est GFR ( Amer) 80 D Glucose 145 H POC Glucose Lactate 2.6 H Calcium 8.5 D Random Tobramycin 02/27/19 02/26/19 02/26/19 06:13 21:50 16:26 WBC RBC Hgb Hct MCV MCH MCHC RDW Plt Count MPV Neut % (Auto) Lymph % (Auto) [place] % (Auto) Eos % (Auto) Baso % (Auto) Neut # (Auto) Lymph # (Auto) [place] # (Auto) Eos # (Auto) Baso # (Auto) Total Counted Neutrophils % (Manual) Lymphocytes % (Manual) Monocytes % (Manual) Eosinophils % (Manual) Platelet Estimate RBC Morphology Sodium Potassium Chloride Carbon Dioxide Anion Gap BUN Creatinine Estimated Creat Clear Estimated GFR Est GFR ( Amer) Glucose POC Glucose 105 144 H 190 H Lactate Calcium Random Tobramycin 02/26/19 02/26/19 12:15 11:19 WBC RBC Hgb Hct MCV MCH MCHC RDW Plt Count MPV Neut % (Auto) Lymph % (Auto) [place] % (Auto) Eos % (Auto) Baso % (Auto) Neut # (Auto) Lymph # (Auto) [place] # (Auto) Eos # (Auto) Baso # (Auto) Total Counted Neutrophils % (Manual) Lymphocytes % (Manual) Monocytes % (Manual) Eosinophils % (Manual) Platelet Estimate RBC Morphology Sodium Potassium Chloride Carbon Dioxide Anion Gap BUN Creatinine Estimated Creat Clear Estimated GFR Est GFR ( Amer) Glucose POC Glucose 104 Lactate Calcium Random Tobramycin 2.4 DS: Diagnosis - Discharge Diagnosis (1) Obesity Status: Chronic (2) Bacteremia Status: Ruled-out (3) Acute exacerbation of chronic obstructive airways disease Status: Acute (4) CAD (coronary artery disease) Status: Chronic (5) COPD (chronic obstructive pulmonary disease) Status: Chronic (6) Diabetes Status: Chronic (7) Tobacco abuse Status: Chronic Discharge Plan - Patient Discharge Instructions ACTIVITY: Continue current activity DIET: continue same diet Patient Instructions: Urinary Tract Infection, Methicillin-Resistant Staph Infection, DI for Urinary Tract Infection (UTI), DI for Methicillin-Resistant Staph Infection (MRSA), DI for Sepsis -- Adult, DI for Staph Infection, Staph Infection - Follow up Plan Follow up with: Salvador Zamorano [Primary Care Provider] - 03/02/19 Disposition: Home, Self-[facility] Medications: Home Medications Medication Instructions Recorded Confirmed Type gabapentin 300 mg capsule 900 mg PO HS 10/06/17 02/26/19 History metformin 500 mg tablet 500 mg PO BID 10/06/17 02/26/19 History sitagliptin 100 mg tablet 100 mg PO DAILY 10/06/17 02/26/19 History alprazolam 1 mg tablet 1 mg PO TIDP PRN tab 08/24/18 02/26/19 History omeprazole 40 mg capsule,delayed 40 mg PO BID cap 08/24/18 02/26/19 History release Beclomethasone Dipropionate [Qnasl] 1 - 2 spray NS DAILY 02/07/19 02/26/19 History Bethanechol Chloride [Urecholine] 25 mg PO TID 02/07/19 02/26/19 History Bisoprolol Fumarate [Bisoprolol 10 mg PO HS 02/07/19 02/26/19 History 10mg Tablet] Cyclobenzaprine HCl 5 mg PO HS 02/07/19 02/26/19 History [Cyclobenzaprine 5mg Tab] Diclofenac Sodium [Diclofenac 75mg 75 mg PO BIDP PRN 02/07/19 02/26/19 History Tab] Doxycycline Hyclate [Doxycycline 100 mg PO HS 02/07/19 02/26/19 History 100mg Capsule] Levalbuterol Tartrate 2 puff IH Q4HP PRN 02/07/19 02/26/19 History [Levalbuterol Tartrate Hfa] Lisinopril [Lisinopril 2.5mg Tab] 2.5 mg PO DAILY 02/07/19 02/26/19 History Melatonin/Pyridoxine HCl (B6) 1 each PO HS 02/07/19 02/26/19 History [Melatonin-Vit B6 3 mg-1 mg Tab] Milnacipran HCl [Savella] 100 mg PO BID 02/07/19 02/26/19 History Montelukast Sodium [Montelukast 10 mg PO HS 02/07/19 02/26/19 History 10mg Tab] Fluticasone Propionate 2 spry NS DAILY 02/08/19 02/26/19 History Levothyroxine Sodium 100 mcg PO DAILY 02/08/19 02/26/19 History [Levothyroxine 100mcg (0.1MG) Tab] Rosuvastatin Calcium 20 mg PO HS 02/08/19 02/26/19 History aspirin 81 mg tablet,delayed 81 mg PO DAILY #30 tab 02/16/19 02/26/19 Rx release predniSONE [Prednisone 50mg Tab] 50 mg PO DAILY 02/25/19 02/26/19 History Amitriptyline HCl [Elavil 25mg 25 mg PO HS 02/26/19 02/26/19 History tablet] Prescriptions/Medication Reconciliation: Continued gabapentin 300 mg capsule 900 mg PO HS metformin 500 mg tablet 500 mg PO BID sitagliptin 100 mg tablet 100 mg PO DAILY alprazolam 1 mg tablet 1 mg PO TIDP PRN tab PRN Reason: Anxiety aspirin 81 mg tablet,delayed release 81 mg PO DAILY #30 tab omeprazole 40 mg capsule,delayed release 40 mg PO BID cap Bethanechol Chloride [Urecholine] 25 mg PO TID Cyclobenzaprine HCl [Cyclobenzaprine 5mg Tab] 5 mg PO HS Melatonin/Pyridoxine HCl (B6) [Melatonin-Vit B6 3 mg-1 mg Tab] 1 each PO HS Bisoprolol Fumarate [Bisoprolol 10mg Tablet] 10 mg PO HS Montelukast Sodium [Montelukast 10mg Tab] 10 mg PO HS Lisinopril [Lisinopril 2.5mg Tab] 2.5 mg PO DAILY Diclofenac Sodium [Diclofenac 75mg Tab] 75 mg PO BIDP PRN PRN Reason: Inflammation/PAIN Milnacipran HCl [Savella] 100 mg PO BID Levalbuterol Tartrate [Levalbuterol Tartrate Hfa] 2 puff IH Q4HP PRN PRN Reason: Shortness Of Breath Beclomethasone Dipropionate [Qnasl] 1 - 2 spray NS DAILY Doxycycline Hyclate [Doxycycline 100mg Capsule] 100 mg PO HS Rosuvastatin Calcium 20 mg PO HS Fluticasone Propionate 2 spry NS DAILY predniSONE [Prednisone 50mg Tab] 50 mg PO DAILY Levothyroxine Sodium [Levothyroxine 100mcg (0.1MG) Tab] 100 mcg PO DAILY Amitriptyline HCl [Elavil 25mg tablet] 25 mg PO HS
== END 2019-02-27 09:45 | disposition home or self-care (01) ==
LOC: 2ND 16:28 → ER 16:28 → 2ND 19:52
PROVIDERS: ADMIT Emergency Medicine; ATTEND Internal Medicine Adolescent Medicine
CPT/HCPCS: 36415; 80048; 80053; 80200; 82962; 83605; 85007; 85025; 87040; 96365; 96374; 99284; G0378; J3370

== ENCOUNTER → 2019-06-29 16:42 | Outpatient (CLI) | payer MEDICARE, MEDICAID, SELFPAY ==
[2019-06-29 17:27] LABS: INR 1.02 (0.9-1.1); Prothrombin Time 10.6 seconds (9.4-11.8)
[2019-07-04 14:29] LABS: Anti-Thrombin III Antigen 106 % (72-124); Protein S Antigen, Total 94 % (60-150); Protein S, Free 141 % (57-157)
[2019-07-04 16:26] LABS: PTT-LA 31.2 sec (0.0-51.9); dRVVT 36.2 sec (0.0-47.0)
[2019-07-05 15:00] LABS: Lupus Reflex Interpretation Comment: (.)
[2019-07-06 08:16] LABS: Protein C Antigen 146 % (60-150)
== END ==
PROVIDERS: PCP Internal Medicine; Visit Provider Internal Medicine
DX: Z51.81 Encounter for therapeutic drug level monitoring (principal); Z86.718 Personal history of other venous thrombosis and embolism; Z79.01 Long term (current) use of anticoagulants; Z83.2 Family history of diseases of the blood and blood-forming organs and certain disorders involving the immune mechanism
CPT/HCPCS: 36415; 81241; 85301; 85302; 85305; 85306; 85610; 85613; 85730

== ENCOUNTER → 2019-08-02 09:59 | Outpatient (POV) | payer MEDICARE, OTHER, SELFPAY ==
[2019-08-02 10:07] VITALS: BP 137/78; PULSE 83; RESP 20; O2SAT 95; BMI 31.6
--- NOTE | 2019-08-02 10:23 | HMH.PMPROC ---
- Procedure Date: 08/02/19 Time: 10:23 Anesthesiologist:: Mounika Loza APRN Complications:: None Pre-procedure Diagnosis:: Degenerative disc disease lumbar spine with lumbar radiculopathy Post-procedure Diagnosis:: Same Indications for Procedure:: Patient is a pleasant 73-year-old white female who presents today for follow-up and neurostimulator lead removal. Patient had a neurostimulator trial patient had 100% of her pain relief during this trial. Overall did well she had increased activities and was able to go shopping and other things that she was not previously able to do. Patient is tried and failed conservative treatments including lumbar epidural steroid injections, RFA's, facet joint injections, SI joint injections, physical therapy, oral medications. She is not a surgical candidate. She does have a successful psychological evaluation. Patient would like to move forward with a permanent implant. Patient's leads were were placed at the T7-T8 vertebral bodies. Physical Exam General: Alert and oriented x3, no acute distress, pleasant and cooperative, [on room air] Lungs: Resps E/U, Symmetrical chest expansion, Eyes: PERRL Musculoskeletal: Flexion and extension of lumbar spine somewhat guarded secondary to pain, deep tendon reflexes normal, strength in upper and lower extremities [5/5], slightly antalgic gait noted Neurological: speech clear, organic extractions technician equal, no gross sensory deficits Procedure Details:: After informed consent was obtained the risk and benefits of the procedure were explained to the patient. Patient's vital signs were monitored with noninvasive blood pressure cuff and pulse oximeter. Patient's tape was removed on her back. The area in which her epidural leads entered was examined to ensure no redness or draining. Patient leads were then removed in sterile fashion. Patient then had Band-Aids placed over the puncture sites. Patient tolerated the procedure well. Plan and Disposition:: We will move forward with a Medtronic permanent implant at T7-T8 vertebral levels with 2 leads. Patient is not on any anticoagulation therapy. Patient is continuing a home stretching program. I will follow-up with the patient after her implant reassess her symptoms at that time she has been instructed to call the office if she has any issues prior to her next appointment. Dr. Hinojosa has reviewed this note and agrees with this plan of care. This note was dictated using voice recognition software and may contain errors or omissions
== END ==
PROVIDERS: PCP Internal Medicine; Visit Provider Clinical Nurse Specialist Family Health
DX: M51.16 Intervertebral disc disorders with radiculopathy, lumbar region (principal)
CPT/HCPCS: 99212

== ENCOUNTER → 2019-09-08 10:26 | Outpatient (POV) | payer MEDICARE, OTHER, SELFPAY ==
[2019-09-08 10:51] VITALS: BP 147/75; PULSE 92; RESP 18; O2SAT 98; BMI 35.7
--- NOTE | 2019-09-08 11:11 | HMH.PAINSOAP ---
[facility] Pain Management SOAP Note Subjective:: Patient is a pleasant 73-year-old white female who presents today for low back pain with lumbar radiculopathy symptoms. Patient recently underwent a spinal cord stimulator placement for her low back pain. She presents today with 0 out of 10 pain. She says she is doing very well following her stimulator placement. She did fail all conservative therapies of injective therapy, physical therapy, and oral medications. She was not considered a surgical candidate. Patient says she is getting approximately 90% relief with her stimulator. She is complaining, however, today of increased pain when she is laying flat in the bed. She is here today to meet with a spinal cord stimulator transportation services representative to discuss reprogramming. She is continuing with anti-inflammatories and a home stretching program. Review of Systems General: No recent weight changes, no fever, no sleep disturbances Respiratory: No cough, no shortness of air, no recurring pulmonary infections Cardiovascular/peripheral vascular: No chest pain, no palpitations, no edema, no shortness of breath Gastrointestinal: No new onset incontinence, normal bowel movements reported Genitourinary: No new onset incontinence Musculoskeletal: Low back pain Psychiatric: Normal mood/affect Neurological: [Denies weakness in extremities], [denies balance issues] Objective:: Physical exam General: Alert and oriented x3, no acute distress, pleasant and cooperative, [on room air] Lungs: Respirations even and unlabored, symmetrical chest expansion Eyes: PERRL Musculoskeletal: Flexion and extension of lumbar spine somewhat guarded secondary to pain, deep tendon reflexes normal, strength in upper and lower extremities [5/5], [abnormal gait noted] Neurological: Speech clear, digital communications manager equal, no gross sensory deficit Assessment:: Degenerative disc disease lumbar spine with lumbar radiculopathy symptoms Plan:: The wound VAC was removed from the patient today. Her incision is well approximated, with no drainage, no redness noted. Overall the patient is doing very well following her spinal cord stimulator placement. We will schedule the patient to return in 2 weeks for suture removal. Patient has been instructed to contact the clinic if she has any concerns before her next appointment. She did meet with a spinal cord stimulator transportation services representative today and says that she was reprogrammed and is doing well. Has been instructed to contact the clinic if she has any concerns before her next appointment. Dr. Hinojosa has reviewed this note and agrees with this plan of care. This note was dictated using voice recognition software and make contain errors or omissions. [facility] History I have reviewed the patient's past medical history: Yes Medical History: Reports:: Anxiety, Asthma, Chronic Obstructive Pulmonary Disease (COPD), Depression, Diabetes Mellitus Type 2, Gastroesophageal Reflux Disease(GERD), Hyperlipidemia, Hypertension, Migraine Denies:: Cancer, Diabetes Mellitus Type 1, Internal Pacemaker, MRSA, Seizures *Have you ever received a pneumonia vaccine?: Yes *Have you received a flu vaccine this season?: Yes Other Medical History: Reports: Anemia, Arthritis, Cataracts, Hypothyroidism, Sinus Problems. Denies: Blood Transfusion Reaction Laterality Cases: Bilateral: Tonsillectomy Other Surgeries: Yes: Appendectomy, Cardiac Catheterization, Cholecystectomy, Colonoscopy, Colon Resection, , Hysterectomy-Total, Other. No: Pacemaker Amputation: No Fractures: No - *Social History Smoking Status: Current every day smoker Tobacco Type: cigarettes # Packs/Day (cigarettes): 1 Alcohol Intake: never Alcohol Intake Frequency:: other Substance Use Type: denies use *Occupational Status:: other Housing: apartment Household Members: children *Travel in the last 8 weeks: None - Psychiatric History Pschychiatric History:: Reports:: Anxiety, Depression Family Hx:: Canc
== END ==
PROVIDERS: PCP Internal Medicine; Visit Provider Clinical Nurse Specialist Family Health
DX: M51.16 Intervertebral disc disorders with radiculopathy, lumbar region (principal)
CPT/HCPCS: 99212

== ENCOUNTER → 2019-09-26 10:40 | Outpatient (POV) | payer MEDICARE, OTHER, SELFPAY ==
[2019-09-26 11:46] VITALS: BP 125/81; PULSE 87; RESP 18; O2SAT 98; BMI 31.6
--- NOTE | 2019-09-26 12:03 | HMH.PAINSOAP ---
[facility] Pain Management SOAP Note Subjective:: Patient is a very pleasant 73-year-old white female who presents today for follow-up. Patient has a neurostimulator implanted which is Medtronic. Overall patient is doing extremely well she rates her pain a 0 out of 10. She will be reprogrammed today. Patient is healed and there are no sign symptoms of infection. ROS General: no recent weight change, no fever, no sleep disturbances Respiratory: no cough, no shortness of air, no recurring pulmonary infections Cardiovascular/Peripheral Vascular: No chest pain, No palpitations, no edema, no shortness of breath. Gastrointestinal: no new onset incontinence, normal bowel movements reported Genitourinary: no new onset incontinence Musculoskeletal: Back pain at times Psychiatric: normal mood/ affect Neurological: [denies new onset weakness in extremities], [denies new onset balance issues] Objective:: Physical Exam General: Alert and oriented x3, no acute distress, pleasant and cooperative, [on room air] Lungs: Resps E/U, Symmetrical chest expansion, Eyes: PERRL Musculoskeletal: Flexion and extension of lumbar spine somewhat guarded secondary to pain, deep tendon reflexes normal, strength in upper and lower extremities [5/5], slightly antalgic gait noted Neurological: speech clear, human resource assistant equal, no gross sensory deficits Assessment:: Degenerative disc disease lumbar spine with lumbar radiculopathy Plan:: We will see the patient back in 2 month reassess her symptoms at that time she has been instructed to call the office if she has any issues prior to her next appointment. Dr. Hinojosa has reviewed this note and agrees with this plan of care. This note was dictated using voice recognition software and may contain errors or omissions [facility] History I have reviewed the patient's past medical history: Yes Medical History: Reports:: Anxiety, Asthma, Chronic Obstructive Pulmonary Disease (COPD), Depression, Diabetes Mellitus Type 2, Gastroesophageal Reflux Disease(GERD), Hyperlipidemia, Hypertension, Migraine Denies:: Cancer, Diabetes Mellitus Type 1, Internal Pacemaker, MRSA, Seizures *Have you ever received a pneumonia vaccine?: Yes *Have you received a flu vaccine this season?: Yes Other Medical History: Reports: Anemia, Arthritis, Cataracts, Hypothyroidism, Sinus Problems. Denies: Blood Transfusion Reaction Laterality Cases: Bilateral: Tonsillectomy Other Surgeries: Yes: Appendectomy, Cardiac Catheterization, Cholecystectomy, Colonoscopy, Colon Resection, , Hysterectomy-Total, Other. No: Pacemaker Amputation: No Fractures: No - *Social History Smoking Status: Current every day smoker Tobacco Type: cigarettes # Packs/Day (cigarettes): 1 Alcohol Intake: never Alcohol Intake Frequency:: other Substance Use Type: denies use *Occupational Status:: other Housing: apartment Household Members: children *Travel in the last 8 weeks: None - Psychiatric History Pschychiatric History:: Reports:: Anxiety, Depression Family Hx:: Cancer, Diabetes, Heart Attack, Hyperlipidemia, Hypertension, Stroke, Thyroid Disorder
== END ==
PROVIDERS: PCP Internal Medicine; Visit Provider Clinical Nurse Specialist Family Health
DX: M51.16 Intervertebral disc disorders with radiculopathy, lumbar region (principal); F41.9 Anxiety disorder, unspecified; J44.9 Chronic obstructive pulmonary disease, unspecified; F32.9 Major depressive disorder, single episode, unspecified; E11.9 Type 2 diabetes mellitus without complications; K21.9 Gastro-esophageal reflux disease without esophagitis; I10 Essential (primary) hypertension; E78.5 Hyperlipidemia, unspecified
CPT/HCPCS: 99212

== ENCOUNTER → 2019-10-24 09:40 | Outpatient (CLI) | payer MEDICARE, OTHER, SELFPAY ==
--- NOTE | 2019-10-24 09:56 | XR_ITS ---
PROCEDURE: XR DEXA AXIAL SKELETON CLINICAL HISTORY: POST MENOPAUSAL COMPARISON: No exams were available for comparison FINDINGS: Osteoporosis of the right femoral neck with T-score -2.7 and a BMD of 0.548. Osteopenia of the right femoral neck with a T-score -2.3 BMD 0.597. Osteoporosis of the wrist with a radial 1/3 density of 0.459 grams/centimeters squared and a T-score of -3.9. High fracture risk. IMPRESSION: Osteoporosis with high fracture risk. Treatment advised. Suggest follow-up exam in 1 year Dictated by: Kishore Winkler MD 10/24/2019 11:19 Electronically signed by Kishore Winkler MD in [place] 10/24/2019 11:19
== END ==
PROVIDERS: PCP Internal Medicine; Visit Provider Internal Medicine
DX: Z78.0 Asymptomatic menopausal state (principal)
CPT/HCPCS: 77080

== ENCOUNTER → 2019-10-24 10:35 | Outpatient (POV) | payer MEDICARE, OTHER, SELFPAY ==
--- NOTE | 2019-10-24 12:55 | P.CONS_ITS ---
[facility] Pain Management SOAP Note Subjective:: Patient is a pleasant 73-year-old white female who presents today for follow-up. Patient has a neurostimulator she was changed to adaptive stim which did not seem to be very helpful. She has been switched back to tonic it is already doing better she rates her pain a 5 out of 10 mostly in her back and her legs. She will be reprogrammed today. ROS General: no recent weight change, no fever, no sleep disturbances Respiratory: no cough, no shortness of air, no recurring pulmonary infections Cardiovascular/Peripheral Vascular: No chest pain, No palpitations, no edema, no shortness of breath. Gastrointestinal: no new onset incontinence, normal bowel movements reported Genitourinary: no new onset incontinence Musculoskeletal: Back pain, leg pain Psychiatric: normal mood/ affect, Neurological: [denies new onset weakness in extremities], [denies new onset balance issues] Objective:: Physical Exam General: Alert and oriented x3, no acute distress, pleasant and cooperative, [on room air] Lungs: Resps E/U, Symmetrical chest expansion, Eyes: PERRL Musculoskeletal: Flexion and extension of lumbar spine somewhat guarded secondary to pain, deep tendon reflexes normal, strength in upper and lower extremities [5/5], [abnormal gait noted] Neurological: speech clear, psych np equal, no gross sensory deficits Assessment:: Degenerative disc disease lumbar spine with lumbar radiculopathy Plan:: Patient was reprogrammed today by the appliance service representative she will be followed up with this week to see if she is due to doing well if she does not need to come back in for any kind of reprogramming we will see her in 2 months reassess her at that time. She is been instructed to call the office. Dr. Hinojosa has reviewed this note and agrees with this plan of care. This note was dictated using voice recognition software and may contain errors or omissions [facility] History I have reviewed the patient's past medical history: Yes Medical History: Reports:: Anxiety, Asthma, Chronic Obstructive Pulmonary Disease (COPD), Depression, Diabetes Mellitus Type 2, Gastroesophageal Reflux Disease(GERD), Hyperlipidemia, Hypertension, Migraine Denies:: Cancer, Diabetes Mellitus Type 1, Internal Pacemaker, MRSA, Seizures *Have you ever received a pneumonia vaccine?: Yes *Have you received a flu vaccine this season?: Yes Other Medical History: Reports: Anemia, Arthritis, Cataracts, Hypothyroidism, Sinus Problems. Denies: Blood Transfusion Reaction Laterality Cases: Bilateral: Tonsillectomy Other Surgeries: Yes: Appendectomy, Cardiac Catheterization, Cholecystectomy, Colonoscopy, Colon Resection, , Hysterectomy-Total, Other. No: Pacemaker Amputation: No Fractures: No - *Social History Smoking Status: Current every day smoker Tobacco Type: cigarettes # Packs/Day (cigarettes): 1 Alcohol Intake: never Alcohol Intake Frequency:: other Substance Use Type: denies use *Occupational Status:: other Housing: apartment Household Members: children *Travel in the last 8 weeks: None - Psychiatric History Pschychiatric History:: Reports:: Anxiety, Depression Family Hx:: Cancer, Diabetes, Heart Attack, Hyperlipidemia, Hypertension, Stroke, Thyroid Disorder
[2019-10-24 12:58] VITALS: BP 153/85; PULSE 84; RESP 18; O2SAT 98; BMI 35.4
== END ==
PROVIDERS: PCP Internal Medicine; Visit Provider Clinical Nurse Specialist Family Health
DX: M51.16 Intervertebral disc disorders with radiculopathy, lumbar region (principal)
CPT/HCPCS: 77080; 99212

== ENCOUNTER → 2019-12-01 09:29 | Outpatient (CLI) | payer MEDICARE, OTHER, SELFPAY ==
--- NOTE | 2019-12-01 09:35 | CT_ITS ---
PROCEDURE: CT ABDOMEN PELVIS WO CON CLINICAL INDICATION: ABD PAIN, RUQ PAIN, ? HERNIA COMPARISON: ABDPELWO CT abdomen pelvis wo con from 02/07/2019 TECHNIQUE: Axial images obtained with sagittal and coronal reformats. All CT scans at the facility use one or more dose reduction, viz: automated exposure control, ma/kV adjustment per patient size (including targeted exams where dose is matched to indication, i.e. head), or iterative reconstruction technique. FINDINGS: LOWER THORAX: No acute finding ABDOMEN & PELVIS: The liver, spleen, adrenal glands, pancreas have an unremarkable appearance. There are nonobstructing punctate stones in both kidneys measuring up to 3 mm. No hydronephrosis. No ureteral calculi. There is no intestinal obstruction or free air. Reported prior appendectomy. No evidence of diverticulitis with scattered diverticula noted. There is focal increased density in the mesenteric root inferiorly slightly to the right of midline at the level of the umbilicus with some stranding of the mesenteric fat at this region. This is nonspecific but could be seen with mesenteric panniculitis. A developing mass would be an additional consideration and follow-up is suggested. This was not present on 02/07/2019 subarticular cysts are present involving the right femoral head with mild osteoarthritic changes of both hips. There is a sclerotic lesion involving the proximal femoral shaft on the left. There is mild lumbar curvature convex left with degenerative changes in the lumbar spine. There is an epidural stimulator device present projected toward the thoracic region. IMPRESSION: 1. Increased density in the mesenteric root slightly to the right of midline at the level of the umbilicus with stranding of the mesenteric fat at this region. This is nonspecific but may be related to mesenteric panniculitis. Developing mass is an additional consideration and follow-up is recommended with IV and oral contrast in 3 months. 2. Nonobstructing bilateral renal calculi Dictated by: Kishore Winkler MD 12/01/2019 11:49 Electronically signed by Kishore Winkler MD in [place] 12/01/2019 11:49
== END ==
PROVIDERS: PCP Internal Medicine; Visit Provider Surgery
DX: R10.11 Right upper quadrant pain (principal)
CPT/HCPCS: 74176

== ENCOUNTER → 2020-02-14 11:01 | Outpatient (POV) | payer MEDICARE, OTHER, SELFPAY ==
[2020-02-14 11:23] VITALS: BP 132/81; PULSE 109; RESP 18; TEMP 36.6; O2SAT 98; BMI 31.6
--- NOTE | 2020-02-14 11:32 | XR_ITS ---
PROCEDURE: XR MULTIPLE SPINE 6+V CLINICAL INDICATION: BACK PAIN COMPARISON: No exams were available for comparison FINDINGS: Thoracic spine: There is mild diffuse dextroscoliotic curvature of the thoracic spine from T1 through T12 measuring 22 degrees. All thoracic vertebrae appear intact. There is generalized osteopenia. There is no paraspinal mass. Lumbar spine: There is mild compensatory levo scoliotic curvature of the lumbar spine. There is moderate disc space narrowing at the L3-4 and L4-5 and L5-S1 levels. There is prominent lateral osteophytic spurring L2-3 3 level on the right side which is at the apex of the levo scoliotic curvature. There multilevel hypertrophic facet changes at L 4 5 and L5-S1. There is no pars defect. IMPRESSION: Moderately severe multilevel degenerate disc disease lower lumbar spine. Dictated by: Dr. Keith Arriaza MD 02/14/2020 15:[address] Keith Arriaza MD in [place] 02/14/2020 15:24
--- NOTE | 2020-02-14 11:33 | XR_ITS ---
PROCEDURE: XR HIP LT 2-3V W/PELVIS CLINICAL INDICATION: WILMER HIP PAIN COMPARISON: Right hip same date FINDINGS: There is mild asymmetrical joint space narrowing left hip but less prominent than right hip. The femoral head and neck appear intact. There is a small sclerotic lesion iliac side of the left SI joint superiorly. There is a similar sclerotic lesion proximal left femur. Both of these areas probably represent small bone islands. There is disc space narrowing at the L4-5 level with vacuum phenomenon of the L4-5 disc. IMPRESSION: Mild osteoarthritic change left hip, moderate degenerate disc disease L4-5 Dictated by: Dr. Keith Arriaza MD 02/14/2020 15:[address] Keith Arriaza MD in [place] 02/14/2020 15:18
--- NOTE | 2020-02-14 11:33 | XR_ITS ---
PROCEDURE: XR HIP RT 2-3V W/PELVIS CLINICAL INDICATION: WILMER HIP PAIN COMPARISON: XR HIP LT 2-3V W/PELVIS from 02/14/2020 FINDINGS: There is moderate asymmetrical joint space narrowing. There are small subchondral cysts in the medial femoral head. IMPRESSION: Mild osteoarthritic change right hip Dictated by: Dr. Keith Arriaza MD 02/14/2020 15:[address] Keith Arriaza MD in [place] 02/14/2020 15:16
--- NOTE | 2020-02-14 15:19 | P.CONS_ITS ---
[facility] Pain Management SOAP Note Subjective:: Patient is pleasant 74-year-old white female who presents today for follow-up. Patient has a neurostimulator which is doing well for her however recently she has had quite a bit of low back and hip pain. She rates her pain today a 10 out of 10. She is noticeably uncomfortable. We will send her for x-rays today to help determine certain pathology. ROS General: no recent weight change, no fever, no sleep disturbances Respiratory: no cough, no shortness of air, no recurring pulmonary infections Cardiovascular/Peripheral Vascular: No chest pain, No palpitations, no edema, no shortness of breath. Gastrointestinal: no new onset incontinence, normal bowel movements reported Genitourinary: no new onset incontinence Musculoskeletal: Hip pain Psychiatric: normal mood/ affect Neurological: [denies new onset weakness in extremities], [denies new onset balance issues] Objective:: Physical Exam General: Alert and oriented x3, no acute distress, pleasant and cooperative, [on room air] Lungs: Resps E/U, Symmetrical chest expansion, Eyes: PERRL Musculoskeletal: Flexion and extension of lumbar spine somewhat guarded secondary to pain, deep tendon reflexes normal, strength in upper and lower extremities [5/5], [abnormal gait noted] Neurological: speech clear, water softener installer equal, no gross sensory deficits Assessment:: Degenerative disc disease lumbar spine lumbar radiculopathy, hip pain Plan:: We will send patient for x-rays we will read the results and discuss an option in regards to treatment for the patient this may include NSAIDs or potentially intra-articular injections.. Dr. Hinojosa has reviewed this note and agrees with this plan of care. This note was dictated using voice recognition software and may contain errors or omissions [facility] History I have reviewed the patient's past medical history: Yes Medical History: Reports:: Anxiety, Asthma, Chronic Obstructive Pulmonary Disease (COPD), Depression, Diabetes Mellitus Type 2, Gastroesophageal Reflux Disease(GERD), Hyperlipidemia, Hypertension, Migraine Denies:: Cancer, Diabetes Mellitus Type 1, Internal Pacemaker, MRSA, Seizures *Have you ever received a pneumonia vaccine?: Yes *Have you received a flu vaccine this season?: Yes Other Medical History: Reports: Anemia, Arthritis, Cataracts, Hypothyroidism, Sinus Problems. Denies: Blood Transfusion Reaction Laterality Cases: Bilateral: Tonsillectomy Other Surgeries: Yes: Appendectomy, Cardiac Catheterization, Cholecystectomy, Colonoscopy, Colon Resection, , Hysterectomy-Total, Other. No: Pacemaker Amputation: No Fractures: No - *Social History Smoking Status: Current every day smoker Tobacco Type: cigarettes # Packs/Day (cigarettes): 1 Alcohol Intake: never Alcohol Intake Frequency:: other Substance Use Type: denies use *Occupational Status:: other Housing: apartment Household Members: children *Travel in the last 8 weeks: None - Psychiatric History Pschychiatric History:: Reports:: Anxiety, Depression Family Hx:: Cancer, Diabetes, Heart Attack, Hyperlipidemia, Hypertension, Stroke, Thyroid Disorder
== END ==
PROVIDERS: PCP Internal Medicine; Visit Provider Clinical Nurse Specialist Family Health
DX: M51.16 Intervertebral disc disorders with radiculopathy, lumbar region (principal); M25.559 Pain in unspecified hip
CPT/HCPCS: 72084; 73502; 99212

== ENCOUNTER → 2020-02-22 11:07 | Outpatient (CLI) | payer MEDICARE, OTHER, SELFPAY | LOC: LAB 11:09 → LAB.DROPOF 11:13 | PROVIDERS: Visit Provider Internal Medicine | DX: M25.422 Effusion, left elbow (principal) | CPT/HCPCS: 87070; 87205 ==

== ENCOUNTER → 2020-02-24 09:28 | Outpatient (CLI) | payer MEDICARE, OTHER, SELFPAY ==
--- NOTE | 2020-02-24 | US_ITS ---
APPROVED REPORT Exam Type: Lower Extremity Segmental Pressures Health Practice Manager: Azalea Gregory RDCS Indications Claudication: Rest Pain: Cold Sensitivity Current Smoker Risk Factors Hypertension Obesity Diabetes Current Smoker Pressures/Indices Right Indices Left Indices Brachial 159.00 mmHg Brachial 164.00 mmHg Low Thigh 174.00 mmHg 1.06 Low Thigh 170.00 mmHg 1.04 Calf 175.00 mmHg 1.07 Calf 187.00 mmHg 1.14 Ankle(PT) 173.00 mmHg 1.05 Ankle(PT) 180.00 mmHg 1.10 Ankle(DP) 190.00 mmHg 1.16 Ankle(DP) 184.00 mmHg 1.12 Digit 160.00 mmHg 0.98 Digit 87.00 mmHg 0.53 Findings R SVEN 1.1 L SVEN 1.1 R TBI 1.0 L TBI .5 NORMAL WAVEFORMS AND PULSES Conclusion Normal appearing resting noninvasive lower extremity arterial study. Electronically signed by : Kishore Winkler MD 02/24/2020 17:37:37
== END ==
PROVIDERS: PCP Internal Medicine; Visit Provider Internal Medicine
DX: I73.9 Peripheral vascular disease, unspecified (principal); R23.0 Cyanosis
CPT/HCPCS: 93923

== ENCOUNTER → 2020-03-22 10:26 | Outpatient (POV) | payer MEDICARE, OTHER, SELFPAY ==
[2020-03-22 11:08] VITALS: BP 139/78; PULSE 89; RESP 18; TEMP 36.8; O2SAT 99; BMI 33.7
--- NOTE | 2020-03-22 11:39 | HMH.PAINSOAP ---
[facility] Pain Management SOAP Note Subjective:: Patient is a 74-year-old white female who presents today for continued low back pain. Patient was in the clinic in February 2020 for which she was rating her pain a 10 out of 10. She complains of bilateral low back pain with radiation into her bilateral buttocks and bilateral hips. She was seen for x-rays of her lumbar spine as well as bilateral hips. Patient and I did discuss her results today. Patient was noted to have letter sclerotic areas to her SI joints. Patient says she will not undergo any further injective therapy. I did discuss with her as well possible corner lock procedure if a diagnostic SI joint injection was positive, however, the patient is not interested at this time. Patient does have a [employer] spinal cord stimulator that has been reprogrammed on multiple occasions. She says that her pain is worse when the stimulator is turned on. She says, as a result, she is since turned the stimulator off. She would like to discuss possible explant of the stimulator and is interested in an intrathecal pain pump. She has tried physical therapy in the past along with a continued home stretching program. She is also use ice and heat therapies. She says she has undergone injections in the past and has not gotten relief and does not want to proceed with any further injective therapy. Review of Systems General: No recent weight changes, no fever, no sleep disturbances Respiratory: No cough, no shortness of air, no recurring pulmonary infections Cardiovascular/peripheral vascular: No chest pain, no palpitations, no edema, no shortness of breath Gastrointestinal: No new onset incontinence, normal bowel movements reported Genitourinary: No new onset incontinence Musculoskeletal: Low back pain, bilateral hip pain, bilateral buttock pain Psychiatric: Normal mood/affect Neurological: [Denies weakness in extremities], [denies balance issues] Objective:: Physical exam General: Alert and oriented x3, no acute distress, pleasant and cooperative, [on room air] Lungs: Respirations even and unlabored, symmetrical chest expansion Eyes: PERRL Musculoskeletal: Flexion and extension of lumbar spine somewhat guarded secondary to pain, deep tendon reflexes normal, strength in upper and lower extremities [5/5], [abnormal gait noted] Neurological: Speech clear, elevator starter equal, no gross sensory deficit Assessment:: Degenerative disc disease lumbar spine with lumbar radiculopathy symptoms, bilateral hip pain Plan:: At this point, the patient is no longer using her stimulator. She would like to proceed with intrathecal therapy. Patient has undergone a psychological evaluation for possible implant of intrathecal pump and stimulator this previous year when she had her stimulator placed. She was deemed an appropriate candidate for both devices. Patient would like to schedule an intrathecal pain pump trial. We will schedule her for the trial and see her back in the clinic afterwards to reassess her symptoms. She is not on anticoagulation therapy. She is not interested in further injective therapy. We will also order her tizanidine 4 mg 1 tablet p.o. twice daily. Patient has been instructed to contact the clinic if she has any concerns before her next appointment. The patient and I specifically discussed risk factors for COVID19. These risks include, but are not limited to age greater than 60, heart or lung disease, diabetes, immunosuppression, and travel. We also discussed NSAIDs may worsen COVID19 infection or symptoms. Patient should not use NSAIDs to treat COVID19 signs or symptoms. Patient was also informed that any type of corticosteroid of any form (oral or injection) will decrease the patient's immune system response and may increase the likelihood of COVID19 infection [address] symptoms[address] Hinojosa has reviewed this note and agrees with this plan of care. This note was dictated using voice recognition soft
== END ==
PROVIDERS: PCP Internal Medicine; Visit Provider Clinical Nurse Specialist Family Health
DX: M51.16 Intervertebral disc disorders with radiculopathy, lumbar region (principal); M25.551 Pain in right hip; M25.552 Pain in left hip
CPT/HCPCS: 99212

== ENCOUNTER → 2020-05-08 12:16 | Outpatient (CLI) | payer MEDICARE, OTHER, SELFPAY ==
[2020-05-08 13:15] LABS: Coronavirus 19 IgG Antibody Negative (Negative); Coronavirus 19 IgM Antibody Negative (Negative)
== END ==
PROVIDERS: Visit Provider Internal Medicine
DX: Z20.828 Contact with and (suspected) exposure to other viral communicable diseases (principal)
CPT/HCPCS: 36415; 86328

== ENCOUNTER → 2020-05-18 09:57 | Outpatient (POV) | payer MEDICARE, OTHER, SELFPAY ==
[2020-05-18 10:49] VITALS: BP 116/53; PULSE 92; RESP 18; TEMP 36.4; O2SAT 93; BMI 29.9
--- NOTE | 2020-05-18 11:58 | P.CONS_ITS ---
[facility] Pain Management SOAP Note Subjective:: Patient is a pleasant 74-year-old white female who we have been treating for low back pain. She does have a Medtronic stimulator in place. She has had this for about a year. Her Medtronic stimulator is no longer giving her adequate pain relief. It has been programmed multiple times by the office services representative. She still has pain in her low back rating to both hips. She also has right hip pain and left knee pain. She has seen Dr. Benjamin who suggested that she needs a total knee replacement on the left side and a total hip replacement on the right side. She also has significant issues with her back and these were nonoperable. We have talked about several options. The patient does not want to keep her stimulator. We can arrange to have her stimulator removed. I will also like to refer her to orthopedics to have evaluation of her left knee and right hip for possible total joint replacement. Also we have talked about intrathecal therapy. We will plan on getting a psychological evaluation in preparation for intrathecal pump trial in the future. I do want to hold off on any intrathecal therapy until her knees and hips are assessed. Objective:: Alert and oriented x3 no acute distress. Patient does have an antalgic gait. Motor strength of the lower extremities is 5/5. There is no gross sensory deficit. Assessment:: Degenerative disc disease of lumbar spine with lumbar radiculopathy symptoms. Degenerative joint disease with increasing left knee and right hip pain. Plan:: Patient does want her stimulator removed as this is no longer working for her. We can arrange to have her stimulator removed. I will also like to refer her to orthopedics to have evaluation of her left knee and right hip for possible total joint replacement. Also we have talked about intrathecal therapy. We will plan on getting a psychological evaluation in preparation for intrathecal pump trial in the future. I do want to hold off on any intrathecal therapy until her knees and hips are assessed. [facility] History Medical History: Reports:: Anxiety, Asthma, Chronic Obstructive Pulmonary Disease (COPD), Depression, Diabetes Mellitus Type 2, Gastroesophageal Reflux Disease(GERD), Hyperlipidemia, Hypertension, Migraine Denies:: Cancer, Diabetes Mellitus Type 1, Internal Pacemaker, MRSA, Seizures *Have you ever received a pneumonia vaccine?: Yes *Have you received a flu vaccine this season?: Yes Other Medical History: Reports: Anemia, Arthritis, Cataracts, Hypothyroidism, Sinus Problems. Denies: Blood Transfusion Reaction Laterality Cases: Bilateral: Tonsillectomy Other Surgeries: Yes: No Previous Surgery, Appendectomy, Cardiac Catheterization, Cholecystectomy, Colonoscopy, Colon Resection, , Hysterectomy-Total, Other. No: Pacemaker Amputation: No Fractures: No - *Social History Smoking Status: Current every day smoker Tobacco Type: cigarettes # Packs/Day (cigarettes): 1 Alcohol Intake: never Alcohol Intake Frequency:: other Substance Use Type: denies use *Occupational Status:: unemployed Housing: apartment Household Members: children *Travel in the last 8 weeks: None - Psychiatric History Pschychiatric History:: Reports:: Anxiety, Depression Family Hx:: Cancer, Diabetes, Heart Attack, Hyperlipidemia, Hypertension, Stroke, Thyroid Disorder
== END ==
PROVIDERS: PCP Internal Medicine; Visit Provider Anesthesiology
DX: M51.16 Intervertebral disc disorders with radiculopathy, lumbar region (principal); M17.12 Unilateral primary osteoarthritis, left knee; M16.11 Unilateral primary osteoarthritis, right hip
CPT/HCPCS: 99212

== ENCOUNTER → 2020-06-08 13:42 | Outpatient (CLI) | payer MEDICARE, OTHER, SELFPAY ==
--- NOTE | 2020-06-08 13:52 | XR_ITS ---
PROCEDURE: XR ELBOW LT MIN 3V CLINICAL INDICATION: elbow pain COMPARISON: No exams were available for comparison FINDINGS: No fracture or dislocation. No lytic or blastic change. There is normal mineralization. The joint spaces are well-preserved. No significant degenerative/arthritic changes. No erosive changes evident. Other findings:Prominent soft tissue swelling is present at the olecranon region. No foreign body or soft tissue gas apparent. IMPRESSION: Olecranon bursitis Dictated by: Kishore Winkler MD 06/08/2020 16:03 Kishore Winkler MD in [place] 06/08/2020 16:03
== END ==
PROVIDERS: PCP Internal Medicine; Visit Provider Orthopaedic Surgery
DX: M25.522 Pain in left elbow (principal)
CPT/HCPCS: 73080

== ENCOUNTER → 2020-06-18 13:33 | Outpatient (CLI) | payer MEDICARE, OTHER, SELFPAY ==
--- NOTE | 2020-06-18 13:49 | XR_ITS ---
PROCEDURE: XR KNEE LT 4V CLINICAL INDICATION: Left knee pain COMPARISON: No exams were available for comparison FINDINGS: No fracture or dislocation. No lytic or blastic change. There is normal mineralization. Osteoarthritic changes involve all 3 compartments. This is greatest at the patellofemoral joint and medial compartment moderate in nature. Other findings:None. IMPRESSION: Moderate osteoarthritic change Dictated by: Kishore Winkler MD 06/18/2020 15:04 Kishore Winkler MD in [place] 06/18/2020 15:04
== END ==
PROVIDERS: PCP Internal Medicine; Visit Provider Orthopaedic Surgery
DX: M25.562 Pain in left knee (principal)
CPT/HCPCS: 73564

== ENCOUNTER → 2020-07-26 08:54 | Outpatient (CLI) | payer MEDICARE, OTHER, SELFPAY ==
--- NOTE | 2020-07-26 08:54 | FL_ITS ---
PROCEDURE: FL GUIDED ASPIRATION JOINT CLINICAL INDICATION: rt hip pain COMPARISON: No exams were available for comparison FINDINGS: Fluoroscopy time: 16 seconds. The procedures performed by Dr. Caraballo. A single image shows needle in place overlying the soft tissues superior to the femoral neck with contrast within the hip joint and joint capsule. Mild osteoarthritic changes are also noted. IMPRESSION: Status post fluoro guided hip injection/aspiration Dictated by: Kishore Winkler MD 07/26/2020 18:25 Kishore Winkler MD in [place] 07/26/2020 18:25
--- NOTE | 2020-07-26 11:42 | P.PCN_ITS ---
[facility] Procedure Note Procedure Note:: Procedure Note: Date of Procedure: July 26, 2020 Pre-procedure diagnosis: degenerative joint disease R hip Post-procedure diagnosis: same Procedure: intraarticular corticosteroid injection R hip Performed by: Lexi Caraballo MD Welder Tack/s: none Anesthesia: local; 5cc 1% lidocaine w/o epinephrine Estimated Blood Loss: none History of present illness: 74-year-old female with bilateral hip pain and low back pain. She has been treated by Dr. Hinojosa for her spinal issues but is having persistent pain not only in the lower back but bilateral hips. She does have mild DJD of both hips as well as underlying greater trochanteric bursitis. She is not responded to initial conservative therapies with medication and physical therapy. Her chief complaint appears to be her lower back at this time, but in order to rule out the hip as a source of her pain we have discussed intra-articular injections. The patient is agreeable to trying a hip injection to see if how much it may alleviate her pain. I discussed the risks of the procedure with her, including bleeding, neurovascular damage, bruising or swelling at the injection site, injection site infection, failure to alleviate her pain, increased pain, and possible allergic reactions to the medications. The patient vocalized understanding and provided informed consent for the procedure. Procedure Note: The patient presented to the radiology department and changed into a gown, exposing the affected R hip. Consent was reviewed and signed by both myself and the patient, all questions were answered. The patient was placed supine on the fluoroscopy table and the R hip exposed. The anterior groin/hip and proximal thigh were prepped with chlorhexidine. Timeout was performed. Next, the fluoro machine was brought in over the patient?s hip and a picture taken to confirm adequate visualization of the joint. I donned a pair of sterile surgical gloves; the remainder of the procedure was performed in a sterile fashion. A 20G spinal needle was held over the hip to approximate my desired entry point on the skin, on a line between the ASIS and the greater trochanter. Once this was established, a 25G needle was used to infiltrate injection site and estimated needle track with 5cc 1% lidocaine w/o epinephrine. Once the injection site was anesthetized, the spinal needle was advanced through the same puncture site and deeper towards the hip joint, aimed medially at a 30 degree angle. Using fluoro, it was confirmed that the needle was advanced until it was at the level of the femoral neck. The stylus was removed from the spinal needle and 2cc of iodinated contrast solution was injected through the spinal needle. Fluoro was taken again, and the dye confirmed intra-capsular placement of the spinal needle, indicating a successful intraarticular injection. The syringe with contrast was removed, keeping the spinal needle in place, and 40mg Kenalog with 2cc 1% lidocaine w/o epinephrine was injected through the needle into the hip joint. A final fluoro picture was taken, confirming successful intraarticular injection. The spinal needle was removed from the hip and a band-aid was placed over the injection site. Specimens: none Condition/Disposition: good / home Complications: none
== END ==
PROVIDERS: PCP Internal Medicine; Visit Provider Orthopaedic Surgery
DX: M25.551 Pain in right hip (principal); M16.0 Bilateral primary osteoarthritis of hip
CPT/HCPCS: 20610; 77002; Q9967

== ENCOUNTER → 2020-07-27 09:23 | Outpatient (POV) | payer MEDICARE, OTHER, SELFPAY ==
[2020-07-27 09:45] VITALS: BP 130/64; PULSE 91; RESP 18; TEMP 36.3; O2SAT 96; BMI 32.3
--- NOTE | 2020-07-27 10:25 | HMH.PAINSOAP ---
[facility] Pain Management SOAP Note Subjective:: Patient is a pleasant 74-year-old white female who we have been treating for low back pain and bilateral hip pain. She did get a right hip intra-articular injection by Dr. Metcalf yesterday. She had significant relief of her pain symptoms she is 100% better. Pain score is a 0 out of 10 today. This is resolved most if not all of her pain symptoms. She probably is a candidate for right total hip replacement at this time. Objective:: Alert and oriented x3 no acute distress. Patient does have an antalgic gait. Motor strength of the lower extremities is 5/5. There is no gross sensory deficit. Assessment:: Degenerative disc disease of lumbar spine with lumbar radiculopathy symptoms with degenerative joint disease of the right hip in need of right total hip replacement and bilateral knee pain. Plan:: This patient did very well with the right hip intra-articular injection and most likely is in need of a total hip replacement. We will hold off on any injective therapy since she may be a candidate for hip replacement. She will follow up with us in 2 weeks. Will reevaluate symptoms at that time. She will also follow-up with Dr. Metcalf. [facility] History Medical History: Reports:: Anxiety, Asthma, Chronic Obstructive Pulmonary Disease (COPD), Depression, Diabetes Mellitus Type 2, Gastroesophageal Reflux Disease(GERD), Hyperlipidemia, Hypertension, Migraine Denies:: Cancer, Diabetes Mellitus Type 1, Internal Pacemaker, MRSA, Seizures *Have you ever received a pneumonia vaccine?: Yes *Have you received a flu vaccine this season?: Yes Other Medical History: Reports: Anemia, Arthritis, Cataracts, Hypothyroidism, Sinus Problems. Denies: Blood Transfusion Reaction Laterality Cases: Bilateral: Tonsillectomy Other Surgeries: Yes: No Previous Surgery, Appendectomy, Cardiac Catheterization, Cholecystectomy, Colonoscopy, Colon Resection, , Hysterectomy-Total, Other. No: Pacemaker Amputation: No Fractures: No - *Social History Smoking Status: Current every day smoker Tobacco Type: cigarettes # Packs/Day (cigarettes): 1 Alcohol Intake: never Alcohol Intake Frequency:: other Substance Use Type: denies use *Occupational Status:: retired Housing: apartment Household Members: children *Travel in the last 8 weeks: None - Psychiatric History Pschychiatric History:: Reports:: Anxiety, Depression Family Hx:: Cancer, Diabetes, Heart Attack, Hyperlipidemia, Hypertension, Stroke, Thyroid Disorder
== END ==
PROVIDERS: PCP Internal Medicine; Visit Provider Anesthesiology
DX: M51.16 Intervertebral disc disorders with radiculopathy, lumbar region (principal); M16.11 Unilateral primary osteoarthritis, right hip; M25.562 Pain in left knee; M25.561 Pain in right knee
CPT/HCPCS: 99212

== ENCOUNTER → 2020-08-13 10:10 | Outpatient (POV) | payer MEDICARE, OTHER, SELFPAY ==
[2020-08-13 10:40] VITALS: BP 132/88; PULSE 74; RESP 18; TEMP 36.8; O2SAT 98; BMI 32.3
--- NOTE | 2020-08-13 14:32 | HMH.PAINSOAP ---
[facility] Pain Management SOAP Note Subjective:: Is a pleasant 74-year-old white female who we have been treating for low back pain with bilateral hip pain. Patient has been seen by Dr. Metcalf and us. Patient would like to move forward with repeat intra-articular injections in her hips. She states she got several weeks relief with this. Patient rates her pain today an 8 out of 10 stating her pain is beginning to return she may need a hip replacement in the future. Patient would like to schedule intra-articular hip injections at this time. She rates her pain today an 8 out of 10 ROS General: no recent weight change, no fever, no sleep disturbances Respiratory: no cough, no shortness of air, no recurring pulmonary infections Cardiovascular/Peripheral Vascular: No chest pain, No palpitations, no edema, no shortness of breath. Gastrointestinal: no new onset incontinence, normal bowel movements reported Genitourinary: no new onset incontinence Musculoskeletal: Bilateral hip pain Psychiatric: normal mood/ affect Neurological: [denies new onset weakness in extremities], [denies new onset balance issues] Objective:: Physical Exam General: Alert and oriented x3, no acute distress, pleasant and cooperative, [on room air] Lungs: Resps E/U, Symmetrical chest expansion, Eyes: PERRL Musculoskeletal: Flexion and extension of lumbar spine somewhat guarded secondary to pain, deep tendon reflexes normal, strength in upper and lower extremities [5/5], [abnormal gait noted] decreased range of motion bilateral hips secondary to pain Neurological: speech clear, road engineer equal, no gross sensory deficits Assessment:: Degenerative disc disease lumbar spine lumbar radiculopathy symptoms with degenerative joint disease of the right and left hip. Plan:: We will set her up for bilateral intra-articular hip injections. If she does not get long-term relief with this we will rerefer her to Dr. Metcalf for replacement. Patient is in agreements. I will follow-up with her after her injection reassess her symptoms at that time given the efficacy of this injection in the past I do believe it would benefit her. She has been instructed to call the office if she has any issues prior to her next appointment. Dr. Hinojosa has reviewed this note and agrees with this plan of care. This note was dictated using voice recognition software and may contain errors or omissions [facility] History I have reviewed the patient's past medical history: Yes Medical History: Reports:: Anxiety, Asthma, Chronic Obstructive Pulmonary Disease (COPD), Depression, Diabetes Mellitus Type 2, Gastroesophageal Reflux Disease(GERD), Hyperlipidemia, Hypertension, Migraine Denies:: Cancer, Diabetes Mellitus Type 1, Internal Pacemaker, MRSA, Seizures *Have you ever received a pneumonia vaccine?: Yes *Have you received a flu vaccine this season?: Yes Other Medical History: Reports: Anemia, Arthritis, Cataracts, Hypothyroidism, Sinus Problems. Denies: Blood Transfusion Reaction Laterality Cases: Bilateral: Tonsillectomy Other Surgeries: Yes: No Previous Surgery, Appendectomy, Cardiac Catheterization, Cholecystectomy, Colonoscopy, Colon Resection, , Hysterectomy-Total, Other. No: Pacemaker Amputation: No Fractures: No - *Social History Smoking Status: Current every day smoker Tobacco Type: cigarettes # Packs/Day (cigarettes): 1 Alcohol Intake: never Alcohol Intake Frequency:: other Substance Use Type: denies use *Occupational Status:: other Housing: apartment Household Members: children *Travel in the last 8 weeks: None - Psychiatric History Pschychiatric History:: Reports:: Anxiety, Depression Family Hx:: Cancer, Diabetes, Heart Attack, Hyperlipidemia, Hypertension, Stroke, Thyroid Disorder
== END ==
PROVIDERS: PCP Internal Medicine; Visit Provider Clinical Nurse Specialist Family Health
DX: M51.16 Intervertebral disc disorders with radiculopathy, lumbar region (principal); M16.0 Bilateral primary osteoarthritis of hip
CPT/HCPCS: 99212

== ENCOUNTER 2020-08-31 09:35 | Day surgery (SDC) | payer MEDICARE, OTHER, SELFPAY ==
[2020-08-31 10:10] VITALS: BP 109/60; PULSE 96; RESP 18; TEMP 36.8; O2SAT 98; BMI 33.4
[2020-08-31 11:05] VITALS: BP 123/78; PULSE 74
[2020-08-31 11:06] VITALS: BP 125/85; PULSE 85; RESP 18; O2SAT 98
[2020-08-31 11:24] VITALS: BP 107/69; PULSE 90; RESP 20; O2SAT 98
--- NOTE | 2020-08-31 11:44 | P.PCN_ITS ---
- Procedure Date: 08/31/20 Time: 11:44 Anesthesiologist:: Benja Hinojosa MD Complications:: None Pre-procedure Diagnosis:: Bilateral hip pain with degenerative osteoarthritis both hips Post-procedure Diagnosis:: Same Indications for Procedure:: This patient is a pleasant 74-year-old white female who we are treating for bilateral hip pain with degenerative osteoarthritis both hips. She is done very well with previous intra-articular injections into both hips. She got several weeks pain relief from her last set round of injections. Her pain is starting come back. We will do repeat bilateral intra-articular hip injections today. Procedure Details:: Bilateral intra-articular hip injections Informed consent was obtained the risk and benefits of the procedure were explained to the patient. Patient was taken the procedure room. A 22-gauge spinal needle was inserted into the hip joints bilaterally. Needle placement was confirmed with dye. After this we injected 5 mL bupivacaine 0.25% and Depo- Medrol 40 mg into each hip. We used a total of 80 mg Depo-Medrol for both hips. Patient tolerated procedure well with no complications. Plan and Disposition:: We will follow-up with her in 2 weeks. Will reevaluate symptoms at that time.
== END 2020-08-31 11:25 | disposition home or self-care (01) ==
LOC: SC.PAINP 09:36
PROVIDERS: PCP Internal Medicine; Visit Provider Anesthesiology
DX: M16.0 Bilateral primary osteoarthritis of hip (principal); J44.9 Chronic obstructive pulmonary disease, unspecified; I10 Essential (primary) hypertension; E78.5 Hyperlipidemia, unspecified; E03.9 Hypothyroidism, unspecified; E11.9 Type 2 diabetes mellitus without complications; Z87.19 Personal history of other diseases of the digestive system; K21.9 Gastro-esophageal reflux disease without esophagitis; F41.9 Anxiety disorder, unspecified; F32.9 Major depressive disorder, single episode, unspecified; G43.909 Migraine, unspecified, not intractable, without status migrainosus; Z99.81 Dependence on supplemental oxygen; Z72.0 Tobacco use
CPT/HCPCS: 20610; 77002; J1030; Q9966

== ENCOUNTER → 2020-09-17 08:38 | Outpatient (POV) | payer MEDICARE, OTHER, SELFPAY ==
--- NOTE | 2020-09-17 08:53 | P.CONS_ITS ---
[facility] Pain Management SOAP Note Subjective:: Is a pleasant 74-year-old white female who we are treating for bilateral hip pain with degenerative osteoarthritis both hips. She rates her pain a 10 out of 10. She was getting intra-articular injections which were helpful however the most recent rounds have not given her any relief. She is at the point she is ready to discuss a replacement. She and Dr. Metcalf have discussed this in the past. We will send her back to Dr. Metcalf will ensure that she is on some anti-inflammatory medications. ROS General: no recent weight change, no fever, no sleep disturbances Respiratory: no cough, no shortness of air, no recurring pulmonary infections Cardiovascular/Peripheral Vascular: No chest pain, No palpitations, no edema, no shortness of breath. Gastrointestinal: no new onset incontinence, normal bowel movements reported Genitourinary: no new onset incontinence Musculoskeletal: Bilateral hip pain Psychiatric: normal mood/ affect Neurological: [denies new onset weakness in extremities], [denies new onset balance issues] Objective:: Physical Exam General: Alert and oriented x3, no acute distress, pleasant and cooperative, [on room air] Lungs: Resps E/U, Symmetrical chest expansion, Eyes: PERRL Musculoskeletal: Flexion and extension of lumbar spine somewhat guarded secondary to pain, deep tendon reflexes normal, strength in upper and lower extremities [5/5], [abnormal gait noted] Neurological: speech clear, blocking machine operator second equal, no gross sensory deficits Assessment:: Bilateral hip pain with degenerative osteoarthritis both hips Plan:: We will follow up with her after she seen by Dr. Metcalf. We will give her diclofenac 75 mg 1 p.o. twice daily. She has been instructed to call the office if she has any issues prior to her next appointment. Patient does want to have her stimulator removed I discussed that we would do this after any kind of surgery that she would go through for potential hip replacement. Dr. Hinojosa has reviewed this note and agrees with this plan of care. This note was dictated using voice recognition software and may contain errors or omissions [facility] History I have reviewed the patient's past medical history: Yes Medical History: Reports:: Anxiety, Asthma, Chronic Obstructive Pulmonary Disease (COPD), Depression, Diabetes Mellitus Type 2, Gastroesophageal Reflux Disease(GERD), Hyperlipidemia, Hypertension, Migraine Denies:: Cancer, Diabetes Mellitus Type 1, Internal Pacemaker, MRSA, Seizures *Have you ever received a pneumonia vaccine?: No *Have you received a flu vaccine this season?: No Other Medical History: Reports: Anemia, Arthritis, Cataracts, Hypothyroidism, Sinus Problems. Denies: Blood Transfusion Reaction Laterality Cases: Bilateral: Tonsillectomy Other Surgeries: Yes: No Previous Surgery, Appendectomy, Cardiac Catheterization, Cholecystectomy, Colonoscopy, Colon Resection, , Hysterectomy-Total, Other (bowel surgery). No: Pacemaker Amputation: No Fractures: No - *Social History Smoking Status: Current every day smoker Tobacco Type: cigarettes # Packs/Day (cigarettes): 1 Alcohol Intake: never Alcohol Intake Frequency:: other Substance Use Type: denies use *Occupational Status:: retired Housing: house Household Members: children *Travel in the last 8 weeks: None - Psychiatric History Pschychiatric History:: Reports:: Anxiety, Depression Family Hx:: Cancer, Diabetes, Heart Attack, Hyperlipidemia, Hypertension, Stroke, Thyroid Disorder
[2020-09-17 08:55] VITALS: BP 125/78; PULSE 74; RESP 18; TEMP 36.8; O2SAT 98; BMI 33.3
== END ==
PROVIDERS: PCP Internal Medicine; Visit Provider Clinical Nurse Specialist Family Health
DX: M16.0 Bilateral primary osteoarthritis of hip (principal)
CPT/HCPCS: 99212; G0463

== ENCOUNTER → 2020-10-04 11:33 | Outpatient (POV) | payer MEDICARE, OTHER, SELFPAY ==
[2020-10-04 11:56] VITALS: BP 141/74; PULSE 74; RESP 18; O2SAT 98; BMI 32.3
--- NOTE | 2020-10-04 12:52 | HMH.PAINSOAP ---
[facility] Pain Management SOAP Note Subjective:: Patient presents today quite confused and frustrated. She is a 74-year-old white female who was seen by Dr. Metcalf back in July and given a hip injection. Patient was never given a return appointment per patient. Patient was then seen in our office. Patient did get some relief from the injection and wanted to repeat this. We move forward with this. Patient did not get relief like she had previously. Patient would like to move forward with a hip replacement however she states that prior to this Dr. Metcalf requires pulmonology, cardiology, family practice clearance. I discussed that this is quite typical procedure with the patient. She rates her pain a 10 out of 10 mostly when she is walking. Patient does have a neurostimulator which she does not use. She would like to discuss removing it. ROS General: no recent weight change, no fever, no sleep disturbances Respiratory: no cough, no shortness of air, no recurring pulmonary infections Cardiovascular/Peripheral Vascular: No chest pain, No palpitations, no edema, no shortness of breath. Gastrointestinal: no new onset incontinence, normal bowel movements reported Genitourinary: no new onset incontinence Musculoskeletal: Bilateral hip pain Psychiatric: normal mood/ affect Neurological: [denies new onset weakness in extremities], [denies new onset balance issues] Objective:: Physical Exam General: Alert and oriented x3, no acute distress, pleasant and cooperative, [on room air] Lungs: Resps E/U, Symmetrical chest expansion, Eyes: PERRL Musculoskeletal: Flexion and extension of lumbar spine somewhat guarded secondary to pain, deep tendon reflexes normal, strength in upper and lower extremities [5/5], [abnormal gait noted] Neurological: speech clear, environmental emergencies assistant equal, no gross sensory deficits Assessment:: Nonworking neurostimulator, hip osteoarthritis bilateral hip pain Plan:: We will set the patient up for removal of her neurostimulator. Patient will then move forward with a hip replacement. She is currently working on getting her clearances for surgery. She has been instructed to call the office if she has any issues prior to her next appointment. Dr. Hinojosa has reviewed this note and agrees with this plan of care. This note was dictated using voice recognition software and may contain errors or omissions [facility] History I have reviewed the patient's past medical history: Yes Medical History: Reports:: Anxiety, Asthma, Chronic Obstructive Pulmonary Disease (COPD), Depression, Diabetes Mellitus Type 2, Gastroesophageal Reflux Disease(GERD), Hyperlipidemia, Hypertension, Migraine Denies:: Cancer, Diabetes Mellitus Type 1, Internal Pacemaker, MRSA, Seizures *Have you ever received a pneumonia vaccine?: Yes *Have you received a flu vaccine this season?: Yes Other Medical History: Reports: Anemia, Arthritis, Cataracts, Hypothyroidism, Sinus Problems. Denies: Blood Transfusion Reaction Laterality Cases: Bilateral: Tonsillectomy Other Surgeries: Yes: No Previous Surgery, Appendectomy, Cardiac Catheterization, Cholecystectomy, Colonoscopy, Colon Resection, , Hysterectomy-Total, Other (bowel surgery). No: Pacemaker Amputation: No Fractures: No - *Social History Smoking Status: Current every day smoker Tobacco Type: cigarettes # Packs/Day (cigarettes): 1 Alcohol Intake: never Alcohol Intake Frequency:: other Substance Use Type: denies use *Occupational Status:: other Housing: house Household Members: children *Travel in the last 8 weeks: None - Psychiatric History Pschychiatric History:: Reports:: Anxiety, Depression Family Hx:: Cancer, Diabetes, Heart Attack, Hyperlipidemia, Hypertension, Stroke, Thyroid Disorder
== END ==
PROVIDERS: PCP Internal Medicine; Visit Provider Clinical Nurse Specialist Family Health
DX: T85.113A Breakdown (mechanical) of implanted electronic neurostimulator, generator, initial encounter; M16.0 Bilateral primary osteoarthritis of hip
CPT/HCPCS: 99212; G0463

== ENCOUNTER → 2020-10-08 09:47 | Outpatient (CLI) | payer MEDICARE, OTHER, SELFPAY ==
--- NOTE | 2020-10-08 09:47 | XR_ITS ---
PROCEDURE: XR DEXA AXIAL SKELETON CLINICAL HISTORY: Screening Postmenopausal currently on vitamin-D COMPARISON: No exams were available for comparison FINDINGS: The right hip BMD is 0.743 g per sq cm with a T-score of -1.6. The left hip BMD is 0.752 g per sq cm with a T-score of -1.6. The left forearm BMD is 0.371 g per squared cm with a T-score of -3.9. IMPRESSION: Osteopenia values for bilateral hips, osteoporosis left forearm Based on these results a follow-up exam is recommended in 2 year. Dictated by: Dr. Keith Arriaza MD 10/08/2020 21:28 Dr. Keith Arriaza MD in [place] 10/08/2020 21:28
--- NOTE | 2020-10-08 10:08 | XR_ITS ---
PROCEDURE: XR CHEST 2V CLINICAL HISTORY: pre-op testing High blood pressure, former smoker COMPARISON: CR CXR2V XR chest 2V from 12/09/2018 CR Chest from 02/07/2019 CR Chest from 02/24/2019 FINDINGS: Normal heart size. There is increased density in both lung bases which may be due to prominent pericardial fat pads. Cannot exclude infiltrate in the right lung base. Epidural stimulator device is present in the midthoracic region. There is thoracic kyphosis IMPRESSION: Increased density in the lung bases adjacent to the heart which may be due to pericardial fat pads. Cannot exclude infiltrate in the right lung base Dictated by: Kishore Winkler MD 10/08/2020 17:19 Kishore Winkler MD in [place] 10/08/2020 17:19
--- NOTE | 2020-10-08 11:14 | ECG_ITS ---
APPROVED REPORT Exam: Resting ECG HR:92 bpm ECG Measurements Heart Rate 92 AXES NE 142 P 90 QRSd 72 QRS 64 QT 378 T 67 QTc 467 Conclusion Normal sinus rhythm RSR' or QR pattern in V1 suggests right ventricular conduction delay Borderline ECG Electronically signed by : Delvin Newton, 10/08/2020 14:15:24
[2020-10-08 11:17] LABS: Basophils # 0.1 K/mm3 (0-0.2); Basophils % 0.6 % (0.1-2.0); Eosinophils # 0.2 K/mm3 (0.0-0.4); Eosinophils % 1.1 % (0.1-12.0); Hematocrit 39.5 % (37.0-47.0); Hemoglobin 12.3 g/dL (12.2-16.2); Lymphocytes # 3.2 K/mm3 (0.7-4.5); Lymphocytes % 21.4 % (10-50); Mean Corpuscular HGB Conc 31.2 g/dL (31.8-35.4); Mean Corpuscular Hemoglobin 28.9 pg (27.0-31.2); Mean Corpuscular Volume 92.9 fl (81-99); Mean Platelet Volume 7.8 fl (7.4-10.4); Monocytes # 0.8 K/mm3 (0.1-1.0); Monocytes % 5.3 % (1.7-9.3); Neutrophils # 10.7 K/mm3 (1.8-7.8); Neutrophils % 71.6 % (37.0-80.0); Platelet Count 346 K/mm3 (142-424); Red Blood Count 4.25 M/mm3 (4.20-5.40); Red Cell Distribution Width 15.7 % (11.5-17.5)
[2020-10-08 11:22] LABS: MANUAL DIFFERENTIAL MANUAL DIFFERENTIAL (MANUAL DIFF)
[2020-10-08 11:47] LABS: Chloride 100 mmol/L (98-107); Potassium 4.6 mmoL/L (3.5-5.1); Sodium 138 mmol/L (136-145)
[2020-10-08 11:49] LABS: Activated Partial Thrombo Time 23.4 seconds (23.6-34.0); INR 1.03 (0.9-1.1); Prothrombin Time 11.4 seconds (9.4-11.8)
[2020-10-08 11:50] LABS: Alanine Aminotransferase 27 U/L (12-78); Albumin Level 4.1 g/dl (3.5-5.0); Albumin/Globulin Ratio 1.4 (1.1-1.8); Alkaline Phosphatase 73 U/L (38-126); Anion Gap 13.6 mEq/L (5-15); Aspartate Amino Transferase 28 U/L (14-36); Bilirubin,Total 0.5 mg/dl (0.2-1.3); Blood Urea Nitrogen 34 mg/dl (7-17); Calcium 9.2 mg/dl (8.4-10.2); Carbon Dioxide 29 mmol/L (22.0-30.0); Estimated Glomerular Filt Rate 34 ml/min (>60); GFR (African American) 41 ML/MIN (>60); Globulin 2.9 g/dL (1.3-3.2); Glucose 149 mg/dl (74-100)
[2020-10-08 13:04] LABS: Hemoglobin A1C 6.8 % (4.0-6.0)
[2020-10-08 13:07] LABS: Lymphocytes % 20 % (10-50); Monocytes % 8 % (2-9); Neutrophils % 72 % (42-76); Platelet Estimate Normal; RBC Morphology Normal; Total Cells Counted 100
[2020-10-15 11:56] LABS: 1,25 Dihydroxy Vitamin D 35; 1,25-Dihydroxy, Vitamin D-2 <10; 1,25-Dihydroxy, Vitamin D-3 35
== END ==
PROVIDERS: PCP Internal Medicine; Visit Provider Orthopaedic Surgery
DX: Z01.818 Encounter for other preprocedural examination; Z78.0 Asymptomatic menopausal state; M16.9 Osteoarthritis of hip, unspecified; R79.1 Abnormal coagulation profile; E11.9 Type 2 diabetes mellitus without complications; Z79.84 Long term (current) use of oral hypoglycemic drugs
CPT/HCPCS: 36415; 71046; 77080; 80053; 82652; 83036; 85007; 85025; 85610; 85730; 93005

== ENCOUNTER → 2020-10-08 10:29 | Outpatient (CLI) | payer MEDICARE, OTHER, SELFPAY | PROVIDERS: Visit Provider Orthopaedic Surgery | DX: M16.9 Osteoarthritis of hip, unspecified (principal) | CPT/HCPCS: 36415; 80053; 82652; 83036; 85007; 85025; 85610; 85730 ==

== ENCOUNTER → 2020-10-23 10:25 | Outpatient (CLI) | payer MEDICARE, OTHER, SELFPAY ==
--- NOTE | 2020-10-23 10:26 | CA_ITS ---
APPROVED REPORT EXAM: Comprehensive 2D, Doppler, and color-flow Echocardiogram Behavioral Instructor: Elen Terry RT(R) Ht: 5 ft 5 in Wt: 209lbs BSA: 2.02 BP: 110/70 mmHg Indications: COPD, ex smoker, edema, HTN, DM, SOB, hyperlipidemia, surgery clearance for hip surgery, CAD, GERD, migraine, asthma 2D Dimensions LVOT 2.06 cm (M/F) 1.5-2.5 M-Mode Dimensions RVDd 3.01 cm (0.9-2.6) LA Diam 3.30 cm (1.9-4.0) LVDd 4.70 cm (3.5-5.7) Ao Diam 2.73 cm (2.0-3.7) LVDs 3.76 cm (3.5-5.7) IVSd 0.99 cm (0.6-1.1) PWd 0.94 cm (0.6-1.1) EF (Teich) 41.00% FS 20.00% EDV (Teich) 102.40 mL ESV (Teich) 60.40 mL LV Diastology E Decel Time 187.00 (160-240 msec) E/A Ratio 0.6 MED E' 7.30 (< 7 cm/sec) E'/MED E' Ratio 7.15 (>14) LAT E' 7.60 (<10 cm/sec) E/LAT E' Ratio 6.87 (>14) Mitral Valve MV E Max Manny. 52.00 (40-130 cm/s) MV A Velocity 89.00 (40-130 cm/s) E/A Ratio 0.59 MV Decel. Time 187.00 (160-240 ms) MV PHT 55.00 ms Left Ventricle Left atrium is mildly enlarged, left ventricle is normal size, mild concentric left ventricular hypertrophy, visually estimated ejection fraction 55% with no regional wall motion abnormality, grade 1 diastolic dysfunction seen without tissue Doppler evidence of raise left atrial pressure. Right Ventricle Right atrium and right ventricle are mildly enlarged with normal contractility. Aortic Valve Aortic valve is minimally thickened and fibrosed, there is no aortic stenosis or aortic insufficiency. Mitral Valve Mitral valve is grossly normal, there is mild mitral regurgitation. Tricuspid Valve Tricuspid valve is grossly normal, there is mild tricuspid regurgitation, tricuspid regurgitation jet velocity is inadequate for calculation of the right ventricular systolic pressure. Pulmonic Valve Pulmonic valve is poorly visualized. Great Vessels Aortic root is normal size. Pericardium No significant pericardial effusion noted. Conclusion 1. Mild biatrial enlargement, normal left ventricular size, mild concentric left ventricular hypertrophy, visually estimated ejection fraction 55% with no regional wall motion abnormality, grade 1 diastolic dysfunction seen without tissue Doppler evidence of raise left atrial pressure. 2. Mildly enlarged right ventricle normal contractility. 3. Mild mitral and tricuspid regurgitation. 4. No significant pericardial effusion noted. Electronically signed by : Ronal Perez, 10/23/2020 21:05:43
== END ==
PROVIDERS: PCP Internal Medicine; Visit Provider Physician Assistant
DX: E78.2 Mixed hyperlipidemia (principal); I10 Essential (primary) hypertension; I25.10 Atherosclerotic heart disease of native coronary artery without angina pectoris; Z01.810 Encounter for preprocedural cardiovascular examination; Z87.891 Personal history of nicotine dependence
CPT/HCPCS: 93306

== ENCOUNTER → 2020-11-27 10:14 | Outpatient (CLI) | payer MEDICARE, OTHER, SELFPAY ==
[2020-11-27 10:56] LABS: Basophils # 0.1 K/mm3 (0-0.2); Basophils % 1.4 % (0.1-2.0); Eosinophils # 0.2 K/mm3 (0.0-0.4); Eosinophils % 2.5 % (0.1-12.0); Hematocrit 42.4 % (37.0-47.0); Hemoglobin 12.7 g/dL (12.2-16.2); Lymphocytes # 3.9 K/mm3 (0.7-4.5); Lymphocytes % 44.3 % (10-50); Mean Corpuscular Volume 93.3 fl (81-99); Mean Platelet Volume 7.5 fl (7.4-10.4); Monocytes # 0.4 K/mm3 (0.1-1.0); Monocytes % 4.9 % (1.7-9.3); Neutrophils # 4.2 K/mm3 (1.8-7.8); Neutrophils % 46.9 % (37.0-80.0); Platelet Count 479 K/mm3 (142-424); Red Blood Count 4.54 M/mm3 (4.20-5.40); Red Cell Distribution Width 14.7 % (11.5-17.5); White Blood Count 8.9 K/mm3 (4.8-10.8)
[2020-11-27 11:04] LABS: Chloride 101 mmol/L (98-107)
[2020-11-27 11:05] LABS: Potassium 5.8 mmoL/L (3.5-5.1); Sodium 138 mmol/L (136-145)
[2020-11-27 11:07] LABS: Blood Urea Nitrogen 30 mg/dl (7-17); Estimated Glomerular Filt Rate 49 ml/min (>60); GFR (African American) 59 ML/MIN (>60)
[2020-11-27 11:08] LABS: Anion Gap 13.8 mEq/L (5-15); Calcium 10.2 mg/dl (8.4-10.2); Carbon Dioxide 29 mmol/L (22.0-30.0); Glucose 136 mg/dl (74-100)
[2020-11-27 11:32] LABS: Coronavirus 19 IgG Antibody Positive (Negative); Coronavirus 19 IgM Antibody Negative (Negative)
== END ==
PROVIDERS: Visit Provider Anesthesiology
DX: Z01.818 Encounter for other preprocedural examination (principal); Z20.822 Contact with and (suspected) exposure to COVID-19
CPT/HCPCS: 36415; 80048; 85025; 86328

== ENCOUNTER 2020-11-28 07:37 | Day surgery (SDC) | payer MEDICARE, OTHER, SELFPAY ==
[2020-11-22 14:53] VITALS: BMI 32.3
[2020-11-28] VITALS (8 sets, daily range): BP systolic 101–139; BP diastolic 48–88; PULSE 81–96; RESP 18–20; TEMP 36.3–39.4; O2SAT 89–100
[2020-11-28 08:18] LABS: POC Glucose,Bedside 129 (70-110)
--- NOTE | 2020-11-28 08:41 | P.PN_ITS ---
[facility] Anesthesia Checklist - Structural Data Admitted From: Home Planned Operative Procedure/s: pain pump explant Consent for Planned Operative Procedure(s) Verified: Yes - Additional verifications Anesthesia Reactions: No Hx Blood Transfusions: No Blood Transfusion Reaction: No - Airway Assessment C-Spine Mobility Assessed: Yes TMJ Mobility Assessed: Yes Dentition: Dentures-good fit - Neurological Assessment Level of Consciousness: Awake, Alert, Appropriate - Anesthesia Plan Anesthesia Risk discussed: Yes Anesthesia Plan: Verified ASA Class: III Anesthesia Type: MAC [facility] History I have reviewed the patient's past medical history: Yes Medical History: Reports:: Anxiety, Asthma, Chronic Obstructive Pulmonary Disease (COPD), Depression, Diabetes Mellitus Type 2, Gastroesophageal Reflux Disease(GERD), Hyperlipidemia, Hypertension, Migraine Denies:: Cancer, Diabetes Mellitus Type 1, Internal Pacemaker, MRSA, Seizures *Have you ever received a pneumonia vaccine?: Yes *Have you received a flu vaccine this season?: Yes Other Medical History: Reports: Anemia, Arthritis, Cataracts, Hypothyroidism, Sinus Problems. Denies: Blood Transfusion Reaction Anesthesia experience/problems:: none Laterality Cases: Bilateral: Tonsillectomy Other Surgeries: Yes: No Previous Surgery, Appendectomy, Cardiac Catheterization, Cholecystectomy, Colonoscopy, Colon Resection, , Hysterectomy-Total, Other (bowel surgery). No: Pacemaker Amputation: No Fractures: No - *Social History Last grade of school completed: High school graduate Smoking Status: Current every day smoker Tobacco Type: cigarettes # Packs/Day (cigarettes): 1 Alcohol Intake: never Alcohol Intake Frequency:: other Substance Use Type: denies use *Occupational Status:: retired Housing: house Household Members: children *Travel in the last 8 weeks: None - Psychiatric History Pschychiatric History:: Reports:: Anxiety, Depression Family Hx:: Cancer, Heart Attack, Stroke
--- NOTE | 2020-11-28 09:40 | PC.NURSE ---
called in rx for Bactrim DS BID x7 days to pt's pharmacy per Dr. Lainez's order.
--- NOTE | 2020-11-28 09:45 | HMH.OPNOTE ---
Date of procedure: 11/28/20 Pre-op Diagnosis:: Insufficient pain relief from pain stimulator system-desires removal of pain stimulator system Post-op Diagnosis:: Same Procedure performed:: Removal of pain stimulator and generator leads Surgeon:: Pavel Lainez MD NUMERICAL CONTROL MACHINE OPERATOR:: Koffi Bal, Delvin Bai, Igor Soto, Raoul Wiseman, Other Anesthesia: MAC Estimated blood loss (mL): 5 Operative findings:: Not applicable Operative note:: The patient was placed prone on the operating table. Once adequate IV sedation was obtained and local anesthesia utilizing 1% Xylocaine with epinephrine the incision over the leads was opened. With dissection the lead fixation devices in the 2 leads were removed without difficulty from the epidural space. At this point an incision was made over the generator site and with careful dissection the generator and leads were removed. Both incisions treated with antibiotic solution. Subcutaneous tissues closed with 2-0 Vicryl. Skin was closed with 4-0 nylon sutures. Wound VAC dressing and binder applied to the wounds. Patient taught procedure well was taken recovery in stable condition. Upon recovery the patient will be discharged home and will follow up in 1 week for removal of the wound VAC system in 2 weeks removal of the sutures. Bactrim DS twice daily x1 week per protocol. The patient again tolerated the procedure well Condition: stable Disposition: PACU Complications:: None
--- NOTE | 2020-11-28 11:59 | SUR.PHASEII ---
1125: Dr. Hinojosa at bedside assessing IV infiltration, agrees with pharmacy recommendation. ptBillie monge to d/c home.
== END 2020-11-28 11:31 | disposition home or self-care (01) ==
LOC: OR 07:38
PROVIDERS: PCP Internal Medicine; Visit Provider Surgery
DX: M51.16 Intervertebral disc disorders with radiculopathy, lumbar region (principal); Z45.49 Encounter for adjustment and management of other implanted nervous system device; E11.9 Type 2 diabetes mellitus without complications; J44.9 Chronic obstructive pulmonary disease, unspecified; E78.5 Hyperlipidemia, unspecified; I10 Essential (primary) hypertension; F41.9 Anxiety disorder, unspecified; F32.9 Major depressive disorder, single episode, unspecified; K21.9 Gastro-esophageal reflux disease without esophagitis; G43.909 Migraine, unspecified, not intractable, without status migrainosus; D64.9 Anemia, unspecified; M19.90 Unspecified osteoarthritis, unspecified site
CPT/HCPCS: 63661; 63688; 82962; 96374; J3370

== ENCOUNTER → 2020-12-06 09:52 | Outpatient (POV) | payer MEDICARE, OTHER, SELFPAY ==
[2020-12-06 10:03] VITALS: BP 110/58; PULSE 99; RESP 18; O2SAT 98; BMI 33.9
--- NOTE | 2020-12-06 10:13 | HMH.PAINSOAP ---
[facility] Pain Management SOAP Note Subjective:: 75-year-old white female who presents today for follow-up after the removal of her neurostimulator. Patient rates her pain an 8 out of 10. Her wound VAC was removed her stitches are in place. Patient is awaiting surgery by Dr. Metcalf. Patient has no sign symptoms of infection overall doing well. ROS General: no recent weight change, no fever, no sleep disturbances Respiratory: no cough, no shortness of air, no recurring pulmonary infections Cardiovascular/Peripheral Vascular: No chest pain, No palpitations, no edema, no shortness of breath. Gastrointestinal: no new onset incontinence, normal bowel movements reported Genitourinary: no new onset incontinence Musculoskeletal: Knee pain Psychiatric: normal mood/ affect Neurological: [denies new onset weakness in extremities], [denies new onset balance issues] Objective:: Physical Exam General: Alert and oriented x3, no acute distress, pleasant and cooperative, [on room air] Lungs: Resps E/U, Symmetrical chest expansion, Eyes: PERRL Musculoskeletal: Flexion and extension of lumbar spine somewhat guarded secondary to pain, deep tendon reflexes normal, strength in upper and lower extremities [5/5], [abnormal gait noted] Neurological: speech clear, reinstatement clerk equal, no gross sensory deficits Assessment:: Degenerative disc disease lumbar spine lumbar radiculopathy Plan:: I will see the patient back in 2 weeks for suture removal. She has been instructed to call the office if she has any issues prior to her next appointment. Dr. Hinojosa has reviewed this note and agrees with this plan of care. This note was dictated using voice recognition software and may contain errors or omissions [facility] History I have reviewed the patient's past medical history: Yes Medical History: Reports:: Anxiety, Asthma, Chronic Obstructive Pulmonary Disease (COPD), Depression, Diabetes Mellitus Type 2, Gastroesophageal Reflux Disease(GERD), Hyperlipidemia, Hypertension, Migraine Denies:: Cancer, Diabetes Mellitus Type 1, Internal Pacemaker, MRSA, Seizures *Have you ever received a pneumonia vaccine?: Yes *Have you received a flu vaccine this season?: Yes Other Medical History: Reports: Anemia, Arthritis, Cataracts, Hypothyroidism, Sinus Problems. Denies: Blood Transfusion Reaction Laterality Cases: Bilateral: Tonsillectomy Other Surgeries: Yes: No Previous Surgery, Appendectomy, Cardiac Catheterization, Cholecystectomy, Colonoscopy, Colon Resection, , Hysterectomy-Total, Other (bowel surgery). No: Pacemaker Amputation: No Fractures: No - *Social History Smoking Status: Current every day smoker Tobacco Type: cigarettes # Packs/Day (cigarettes): 1 Alcohol Intake: never Alcohol Intake Frequency:: other Substance Use Type: denies use *Occupational Status:: other Housing: house Household Members: children *Travel in the last 8 weeks: None - Psychiatric History Pschychiatric History:: Reports:: Anxiety, Depression Family Hx:: Cancer, Heart Attack, Stroke
== END ==
PROVIDERS: PCP Internal Medicine; Visit Provider Clinical Nurse Specialist Family Health
DX: M51.16 Intervertebral disc disorders with radiculopathy, lumbar region (principal); Z09 Encounter for follow-up examination after completed treatment for conditions other than malignant neoplasm
CPT/HCPCS: 99212; G0463

== ENCOUNTER → 2020-12-11 13:56 | Outpatient (POV) | payer MEDICARE, OTHER, SELFPAY | PROVIDERS: Visit Provider Dermatology | DX: Z00.00 Encounter for general adult medical examination without abnormal findings (principal) ==

== ENCOUNTER 2020-12-17 19:24 | Inpatient (IN) | payer MEDICARE, OTHER, SELFPAY ==
[2020-12-17 19:25] VITALS: BP 132/70; PULSE 97; RESP 24; TEMP 37; O2SAT 81; BMI 32.5
--- NOTE | 2020-12-17 19:29 | ECG_ITS ---
APPROVED REPORT Exam: Resting ECG HR:97 bpm ECG Measurements Heart Rate 97 AXES OH 138 P 76 QRSd 76 QRS 92 QT 356 T 63 QTc 452 Conclusion Normal sinus rhythm with sinus arrhythmia Rightward axis Low voltage QRS Borderline ECG Electronically signed by : Delvin Newton, 12/18/2020 15:10:23
--- NOTE | 2020-12-17 19:40 | XR_ITS ---
PROCEDURE: XR CHEST PORTABLE CLINICAL HISTORY: SOA Shortness of air with cough COMPARISON: CR Chest from 02/07/2019 CR Chest from 02/24/2019 CR XR CHEST 2V from 10/08/2020 FINDINGS: The cardiomediastinal silhouette and pulmonary vascularity are within normal limits. Patchy density is present in the right lower lung zone consistent an area of atelectasis or infiltrate. There is a faint nodular opacity in the left midlung laterally possibly due to summation artifact or developing pulmonary nodule. Chest CT may provide evaluation. Osteoarthritic changes are present involving the shoulders. IMPRESSION: Right lower lobe atelectasis or infiltrate with possible nodule in the left midlung. Chest CT with contrast may provide further evaluation. Dictated by: Kishore Winkler MD 12/18/2020 05:10 Kishore Winkler MD in [place] 12/18/2020 05:10
[2020-12-17 19:47] LABS: ABG Base Excess -5.2 mmol/L (-2.4-2.3); ABG HCO3 21.3 mmhg (22.0-26.0); ABG Oxygen Saturation 92 % (90-100); ABG PCO2 44.7 mmhg (35.0-45.0); ABG PO2 70.3 mmhg (80-100); ABG TCO2 22.7 mmhg (23-27)
[2020-12-17 19:49] LABS: Allen's Test Acceptable; Oxygen 4.5 %; Source Right Radial
[2020-12-17 19:55] LABS: Basophils # 0.1 K/mm3 (0-0.2); Basophils % 1.1 % (0.1-2.0); Eosinophils # 0.3 K/mm3 (0.0-0.4); Eosinophils % 2.6 % (0.1-12.0); Hematocrit 39.6 % (37.0-47.0); Hemoglobin 11.7 g/dL (12.2-16.2); Lymphocytes # 3.8 K/mm3 (0.7-4.5); Lymphocytes % 36.6 % (10-50); Mean Corpuscular HGB Conc 29.6 g/dL (31.8-35.4); Mean Corpuscular Hemoglobin 27.7 pg (27.0-31.2); Mean Corpuscular Volume 93.7 fl (81-99); Mean Platelet Volume 7.7 fl (7.4-10.4); Monocytes # 0.5 K/mm3 (0.1-1.0); Monocytes % 5.1 % (1.7-9.3); Neutrophils # 5.7 K/mm3 (1.8-7.8); Neutrophils % 54.7 % (37.0-80.0); Platelet Count 331 K/mm3 (142-424); Red Blood Count 4.22 M/mm3 (4.20-5.40); Red Cell Distribution Width 15.1 % (11.5-17.5); White Blood Count 10.4 K/mm3 (4.8-10.8)
[2020-12-17 19:59] LABS: Alanine Aminotransferase 36 U/L (12-78); Albumin Level 4.4 g/dl (3.5-5.0); Albumin/Globulin Ratio 1.4 (1.1-1.8); Alkaline Phosphatase 85 U/L (38-126); Anion Gap 17.8 mEq/L (5-15); Aspartate Amino Transferase 47 U/L (14-36); Bilirubin,Total 0.3 mg/dl (0.2-1.3); Blood Urea Nitrogen 33 mg/dl (7-17); Calcium 9.6 mg/dl (8.4-10.2); Carbon Dioxide 23 mmol/L (22.0-30.0); Chloride 106 mmol/L (98-107); Creatinine Clearance Estimated 41 mL/min (50-200); Estimated Glomerular Filt Rate 29 ml/min (>60); GFR (African American) 36 ML/MIN (>60); Globulin 3.1 g/dL (1.3-3.2); Glucose 140 mg/dl (74-100); Potassium 5.8 mmoL/L (3.5-5.1); Sodium 141 mmol/L (136-145); Total Protein,Serum 7.5 g/dl (6.3-8.2)
[2020-12-17 20:02] LABS: Lactic Acid 3.6 mmol/L (0.7-2.1)
[2020-12-17 20:04] LABS: C-Reactive Protein 4.3 mg/L (0-4)
--- NOTE | 2020-12-17 20:05 | HMH.EDSOB ---
ED Disposition Clinical Impression: Acute exacerbation of chronic obstructive airways disease, Severe sepsis with acute organ dysfunction, TENA (acute kidney injury), Obesity (BMI 30-39.9), Tobacco use Diabetes mellitus Qualifiers: Diabetes mellitus type: type 2 Diabetes mellitus shelter insulin use: unspecified parts counterman insulin use status Diabetes mellitus complication status: with other specified complication Qualified Code(s): E11.69 - Type 2 diabetes mellitus with other specified complication Disposition: Admitted As Inpatient Condition on Discharge: Good Referrals: Salvador Zamorano [Primary Care Provider] - - Critical Care Critical Care Time: No Attestation: On 12/17/20, the high probability of a clinically significant, sudden or life threatening deterioration of the following system(s) required my full and direct attention, intervention and personal management. The time I documented below is in addition to time spent performing reported procedures but includes the following listed in this critical care notation. Medical Decision Making - Medical Records Medical records reviewed: Yes: I reviewed the patient's medical records. - Eric Inquiry Pt receiving controlled substance: No Vital Signs: 12/17/20 19:25 Temperature 98.6 F Temperature Source Oral Pulse Rate [Right] 97 H Respiratory Rate 24 Blood Pressure [Right Arm] 132/70 Blood Pressure Mean [Right Arm] 90 Blood Pressure Source [Right Arm] Automatic Cuff Blood Pressure Position [Right Arm] Sitting 02 Sat by Pulse Oximetry 81 L Oxygen Delivery Method Room Air - Lab Data Lab results reviewed: Yes: I reviewed the patient's lab results. Lab Results 12/17/20 19:35: WBC 10.4, RBC 4.22, Hgb 11.7 L, Hct 39.6, MCV 93.7, MCH 27.7, MCHC 29.6 L, RDW 15.1, Plt Count 331, MPV 7.7, Neut % (Auto) 54.7, Lymph % (Auto) 36.6, Johnson % (Auto) 5.1, Eos % (Auto) 2.6, Baso % (Auto) 1.1, Neut # (Auto) 5.7, Lymph # (Auto) 3.8, Johnson # (Auto) 0.5, Eos # (Auto) 0.3, Baso # (Auto) 0.1 12/17/20 19:35: Sodium 141, Potassium 5.8 H, Chloride 106, Carbon Dioxide 23, Anion Gap 17.8 H, BUN 33 H, Creatinine 1.70 H, Estimated Creat Clear 41, Estimated GFR 29 L, Est GFR ( Amer) 36 L, Glucose 140 H, Calcium 9.6, Total Bilirubin 0.3, AST 47 H, ALT 36, Alkaline Phosphatase 85, Troponin I 0.03, C-Reactive Protein 4.3 H, Total Protein 7.5, Albumin 4.4, Globulin 3.1, Albumin/Globulin Ratio 1.4 12/17/20 19:35: ESR 23 12/17/20 19:35: Lactate 3.6 H 12/17/20 19:35: Procalcitonin 0.113 12/17/20 19:40: Specimen Source Right radial, O2 % 4.5, ABG pH 7.30 L, ABG pCO2 44.7, ABG pO2 70.3 L, ABG HCO3 21.3 L, ABG Total CO2 22.7 L, ABG O2 Saturation 92, ABG Base Excess -5.2 L, Kishore Test Acceptable Result diagrams: 12/17/20 19:35 12/17/20 19:35 Orders (Tests/Meds): ED MEDICATIONS Generic Name Dose Route Start Last Admin Trade Name Freq PRN Reason Stop Dose Admin Albuterol/Ipratropium 3 ml 12/17/20 22:00 Ipratropium/Albuterol 3 Ml Neb 01/16/21 21:59 Q6RT CONG Sodium Chloride 1,000 mls @ 999 mls/hr 12/17/20 20:00 12/17/20 19:48 Sod Chlor 0.9% 1000ml Bag IV 12/17/20 21:00 999 mls/hr .Q1H1M CONG Administration Ceftriaxone Sodium 1 gm/ 50 mls @ 100 mls/hr 12/17/20 21:15 Sodium Chloride IV 12/31/20 21:14 Q24H CONG Protocol Azithromycin 500 mg/ Sodium 250 mls @ 250 mls/hr 12/17/20 21:15 Chloride IV 12/31/20 21:14 Q24H CONG Protocol Sodium Chloride 3 ml 12/17/20 21:17 Sodium Chloride 3% 15ml [facility] 01/16/21 21:16 ONCE PRN INDUCE SPUTUM COLLECTION Discontinued Medications Generic Name Dose Route Start Last Admin Trade Name Freq PRN Reason Stop Dose Admin Methylprednisolone Sodium Succinate 125 mg 12/17/20 19:46 12/17/20 19:48 Methylprednisolone Sod Succ 125mg Vial IV 12/17/20 19:47 125 mg ONCE ONE Administration ORDERS Category Date Time Status XR chest portable Stat Exams 12/17/20 19:40 Taken Thomas
[2020-12-17 20:13] LABS: Troponin I 0.03 ng/ml (0.00-0.034)
[2020-12-17 20:18] LABS: Procalcitonin 0.113 ng/mL (0.0-2.0)
[2020-12-17 20:41] LABS: Erythrocyte Sedimentation Rate 23 mm/hr (0-30)
[2020-12-17 21:30] VITALS: BP 146/90; PULSE 91; RESP 20; O2SAT 96
[2020-12-17 21:42] VITALS: PULSE 87; PULSE 92
[2020-12-17 22:48] VITALS: BP 145/79; PULSE 92; RESP 16; O2SAT 98
[2020-12-17 22:53] VITALS: BP 145/79; PULSE 88; RESP 16; TEMP 37; O2SAT 98
--- NOTE | 2020-12-17 23:02 | PC.NURSE ---
[facility] K.M
[2020-12-17 23:47] LABS: Reflex Lactic Add Lactic Reflex
[2020-12-18] VITALS (15 sets, daily range): BP systolic 110–148; BP diastolic 61–71; PULSE 80–120; RESP 18–36; TEMP 36.4–36.9; O2SAT 91–95; BMI 34.7
[2020-12-18 00:17] LABS: Lactic Acid Follow Up (RFLX 1) 4.1 mmol/L (0.7-2.1)
[2020-12-18 00:20] LABS: Troponin I 0.02 ng/ml (0.00-0.034)
--- NOTE | 2020-12-18 01:33 | PC.NURSE ---
PT LACTOSE INCREASED FROM 3.6-4.1. MD NOTIFIED 1225.
[2020-12-18 01:54] LABS: Reflex Lactic (2 hrs) Add Lactic Reflex
[2020-12-18 02:22] LABS: Lactic Acid Follow up (RFLX 2) 3.4 mmol/L (0.7-2.1)
[2020-12-18 02:25] LABS: Troponin I 0.02 ng/ml (0.00-0.034)
--- NOTE | 2020-12-18 03:56 | PC.NURSE ---
A&OX4. PT TOLERATING 5LNC, O2 SAT 94% AT THIS TIME. PT HAS NON-PRODUCTIVE INTERMITTENT COUGH. PT INSTRUCTED TO ATTEMPT SPUTUM PRODUCTION. PT C/O BACK PAIN AND ANXIETY, TREATED WITH PRN XANAX AND TYLENOL. ON REASSESSMENT PT RESTING IN BED WITH EYES CLOSED. PT UP TO THE BATHROOM INDEPENDENTLY THIS SHIFT. PT HAS TWO INCISIONS NOTED TO LOWER BACK. PT STATES THIS IS FROM PAIN PUMP REMOVAL. INCISIONS CDI. PT RESTING IN BED WITH EYES CLOSED MAJORITY OF SHIFT. NO OTHER C/O THUS FAR. VSS WILL CONTINUE TO MONITOR.
[2020-12-18 05:30] LABS: POC Glucose,Bedside 189 (70-110)
[2020-12-18 05:56] LABS: Basophils % 0.3 % (0.1-2.0); Eosinophils % 0.2 % (0.1-12.0); Hematocrit 37.7 % (37.0-47.0); Hemoglobin 11.2 g/dL (12.2-16.2); Lymphocytes # 1.2 K/mm3 (0.7-4.5); Lymphocytes % 16.6 % (10-50); Mean Corpuscular HGB Conc 29.8 g/dL (31.8-35.4); Mean Corpuscular Hemoglobin 28.3 pg (27.0-31.2); Mean Corpuscular Volume 95.2 fl (81-99); Mean Platelet Volume 8.1 fl (7.4-10.4); Monocytes # 0.1 K/mm3 (0.1-1.0); Monocytes % 1.5 % (1.7-9.3); Neutrophils % 81.3 % (37.0-80.0); Platelet Count 304 K/mm3 (142-424); Red Blood Count 3.96 M/mm3 (4.20-5.40); Red Cell Distribution Width 15.1 % (11.5-17.5); White Blood Count 7.4 K/mm3 (4.8-10.8)
[2020-12-18 06:08] LABS: Chloride 107 mmol/L (98-107); Sodium 138 mmol/L (136-145)
[2020-12-18 06:11] LABS: Anion Gap 14.8 mEq/L (5-15); Blood Urea Nitrogen 28 mg/dl (7-17); Calcium 9.1 mg/dl (8.4-10.2); Carbon Dioxide 23 mmol/L (22.0-30.0); Creatinine Clearance Estimated 67 mL/min (50-200); Estimated Glomerular Filt Rate 49 ml/min (>60); GFR (African American) 59 ML/MIN (>60); Glucose 198 mg/dl (74-100); Magnesium 1.8 mg/dl (1.6-2.3)
[2020-12-18 06:43] LABS: Potassium 6.8 mmoL/L (3.5-5.1)
--- NOTE | 2020-12-18 07:27 | P.CONPHA_ITS ---
[facility] Pharmacy VTE Monitoring - Patient Demographics Admission date: 12/17/20 Report Date: 12/18/20 Time: 07:27 Allergies/Adverse Reactions: Patient Allergies aripiprazole [From ABILIFY] Allergy (Unknown, Verified 11/28/20 08:00) Unknown allergy reaction ciprofloxacin [CIPROFLOXACIN] Allergy (Unknown, Verified 11/28/20 08:00) Unknown allergy reaction phenazopyridine [PHENAZOPYRIDINE] Allergy (Unknown, Verified 11/28/20 08:00) Unknown allergy reaction Height: 1.65 m Weight: 94.517 kg Patient Problems: Current Active Problems Severe sepsis with acute organ dysfunction (Acute) TENA (acute kidney injury) (Acute) Obesity (BMI 30-39.9) (Acute) Tobacco use (Acute) Acute exacerbation of chronic obstructive airways disease (Acute) Diabetes (Chronic) - VTE Risk Labs: VTE Related Lab Results Hgb 11.2 g/dL (12.2-16.2) L 12/18/20 05:30 Hct 37.7 % (37.0-47.0) 12/18/20 05:30 Plt Count 304 K/mm3 (142-424) 12/18/20 05:30 BUN 28 mg/dl (7-17) H 12/18/20 05:30 Creatinine 1.10 mg/dl (0.52-1.04) H D 12/18/20 05:30 Estimated Creat Clear 67 mL/min (50-200) 12/18/20 05:30 VTE Risk Level: Moderate Risk - Prophylaxis VTE Prophylaxis Ordered?: Yes Types of VTE Prophylaxis: TEDS Knee High Location of Applied Device: Bilateral Lower Extremeties
--- NOTE | 2020-12-18 07:45 | HMH.HP ---
*Admission Date: 12/17/20 *Chief complaint: Weakness and shortness of breath *History of present illness: Patient presented to the emergency department with increasing shortness of breath and weakness developing on the day of admission. Today she admits she likely overdid it this past . Nonetheless when her dyspnea began to develop she did not respond to use of her rescue inhaler at home. She became increasingly short of breath she sought treatment at the emergency department. In the ER patient was hypoxic and blood gas revealed mild respiratory acidosis. Patient had mild elevation in potassium and creatinine and chest x-ray suspicious for right lower lobe infiltrate. Patient was admitted and placed on community-acquired pneumonia protocol along with steroids and aerosols for COPD exacerbation and acute respiratory failure. This morning reports she is starting to feel better. Patient was requiring up to 5 L/min of oxygen via nasal cannula and this has been weaned to [address] morning[address] [facility] History I have reviewed the patient's past medical history: Yes Medical History: Reports:: Anxiety, Asthma, Chronic Obstructive Pulmonary Disease (COPD), Depression, Diabetes Mellitus Type 2, Gastroesophageal Reflux Disease(GERD), Hyperlipidemia, Hypertension, Migraine Denies:: Cancer, Diabetes Mellitus Type 1, Internal Pacemaker, MRSA, Seizures *Have you ever received a pneumonia vaccine?: Yes *Have you received a flu vaccine this season?: Yes Other Medical History: Reports: Anemia, Arthritis, Cataracts, Hypothyroidism, Sinus Problems. Denies: Blood Transfusion Reaction Laterality Cases: Bilateral: Tonsillectomy Other Surgeries: Yes: No Previous Surgery, Appendectomy, Cardiac Catheterization, Cholecystectomy, Colonoscopy, Colon Resection, , Hysterectomy-Total, Other (bowel surgery). No: Pacemaker Amputation: No Fractures: No - *Social History Last grade of school completed: 11th or 12th Smoking Status: Former smoker Tobacco Type: cigarettes # Packs/Day (cigarettes): 1 Alcohol Intake: never Alcohol Intake Frequency:: other Substance Use Type: denies use *Occupational Status:: retired Housing: house Household Members: children *Travel in the last 8 weeks: None - Psychiatric History Pschychiatric History:: Reports:: Anxiety, Depression Family Hx:: Cancer, Heart Attack, Stroke Review of Systems - Constitutional Reports body ache(s), Reports lack of energy, Denies anorexia - Eyes Denies itchy eyes - ENT Denies ear discharge - *Cardiovascular Denies chest pain, Denies chest pain at rest, Denies chest pain with activity - *Respiratory Reports chest congestion, Reports cough, Reports shortness of breath, Denies change in phlegm color - *Gastrointestinal Denies belching - *Genitourinary Denies painful urination - *Musculoskeletal Reports joint pain (From fibromyalgia), Reports body aches (From fibromyalgia) - Integumentary/Breasts Denies hair loss - *Neurologic Denies headache(s), Denies seizure-like activity - Psychiatric Denies behavioral changes Meds Home Medications Medication Instructions Recorded Confirmed Type gabapentin 300 mg capsule 900 mg PO HS 10/06/17 12/17/20 History metformin 500 mg tablet 500 mg PO BID 10/06/17 12/17/20 History alprazolam 1 mg tablet 1 mg PO TIDP PRN tab 08/24/18 12/17/20 History omeprazole 40 mg capsule,delayed 40 mg PO BID cap 08/24/18 12/17/20 History release Doxycycline Hyclate [Doxycycline 100 mg PO HS 02/07/19 12/17/20 History 100mg Capsule] Levalbuterol Tartrate 2 puff IH Q4HP PRN 02/07/19 12/17/20 History [Levalbuterol Tartrate Hfa] Milnacipran HCl [Savella] 100 mg PO BID 02/07/19 12/17/20 History Montelukast Sodium [Montelukast 10 mg PO HS 02/07/19 12/17/20 History 10mg Tab] lisinopriL [Lisinopril 2.5mg Tab] 2.5 mg PO DAILY 02/07/19 12/17/20 History Rosuvastatin Calcium 20 mg PO HS 02/08/19 12/17/20 History Amitriptyline HCl [Elavil 25
--- NOTE | 2020-12-18 10:28 | HMH.PHAINT ---
MEDICATION RECONCILIATION COMPLETED USING PATIENT MEDICATION LIST AND EXTERNAL FILL HISTORY
[2020-12-18 11:42] LABS: POC Glucose,Bedside 182 (70-110)
--- NOTE | 2020-12-18 12:36 | PC.NURSE ---
Pt is alert and oriented x 4 and able to make needs known. States she has had a bm today and been voiding in restroom since am lasix dose. FS ACHS, with ssi. Meds per nov.CB in reach and daughter at bedside at this time. Pt is on 3.5 L NC and approx 91%. Expiratory wheezes adrienne throughout. BS active and s1,s2. Pt does have two surgical incisions to lower back with sutures in place and cdi with no s/s of infection, pt states she believes she is to have them removed sometime this week with Dr. Hinojosa. Spoke with Dr. Pool and got an order for a prn nicotine patch, have applied to pt. Mx continues.VSS.
--- NOTE | 2020-12-18 14:47 | PC.NURSE ---
Sputum induced, pt unable to make productive cough. Encouraged to continue to cough. Specimen cup left at bedside
[2020-12-18 15:58] LABS: POC Glucose,Bedside 191 (70-110)
--- NOTE | 2020-12-18 18:58 | PC.NURSE ---
Addendum entered by Craig Magallanes RN 12/18/20 19:00: LLE pulse is present and pt denies any other symptoms. Original Note: Pt is less anxious at this time. Dr. Pool did make changes to nebs. Also made Dr. Pool aware of discoloration to Left foot, NNO noted.
[2020-12-18 21:53] LABS: POC Glucose,Bedside 212 (70-110)
--- NOTE | 2020-12-18 22:50 | PC.NURSE ---
She has been resting in bed. Continues with O2 at 3.5 LPM n/c. She has been anxious; PRN medication given. 12 sutures intact on vertical incision and 7 sutures intact on horizontal incision on her back. Reported a headache and received PRN medication.
[2020-12-19] VITALS (12 sets, daily range): BP systolic 103–159; BP diastolic 60–98; PULSE 76–104; RESP 18–28; TEMP 36.4–36.8; O2SAT 84–94; BMI 34.0; BMI 34.1
[2020-12-19 05:22] LABS: POC Glucose,Bedside 163 (70-110)
--- NOTE | 2020-12-19 07:23 | HMH.ACPN2 ---
Internal Medicine - PN: Nida *Date: 12/19/20 *Time: 07:23 Interval history: Patient reports tremors with her breathing treatments. When asked if she has had similar symptoms with steroid she does not recall ever taking steroids. Patient does report improvement in her dyspnea but remains on supplemental oxygen. Exam Vital signs and Labs for Last 24 Hours: Temp Pulse Resp BP Pulse Ox 97.9 F 90 20 103/60 L 94 L 12/19/20 00:00 12/19/20 00:00 12/19/20 00:00 12/19/20 00:00 12/19/20 00:00 Laboratory Results - last 24 hr 12/18/20 11:32: POC Glucose 182 H 12/18/20 15:44: POC Glucose 191 H 12/18/20 20:17: POC Glucose 212 H 12/19/20 05:14: POC Glucose 163 H I & O for Last 24 hours: Intake & Output 12/16/20 12/17/20 12/18/20 12/19/20 11:59 11:59 11:59 11:59 Intake Total 622 / 622 490 / 490 Output Total 0 / 0 Balance 622 / 622 490 / 490 Weight 208 lb 6 oz 204 lb Microbiology Reports for the Last 24 Hours: Microbiology 12/17/20 12:00 Sputum - Expectorated Sputum Gram Stain - Final Narrative: Patient appears comfortable. Lung exam today has improved aeration but persistent wheezing with right basilar rales. Heart has a regular rate and rhythm. 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 status Diabetes mellitus complication status: with other specified complication Qualified Code(s): E11.69 - Type 2 diabetes mellitus with other specified complication Category: Medical Code(s): E11.9 - Type 2 diabetes mellitus without complications (6) HLD (hyperlipidemia) Status: Chronic Qualifiers: Hyperlipidemia type: mixed hyperlipidemia Qualified Code(s): E78.2 - Mixed hyperlipidemia Category: Medical Code(s): E78.5 - Hyperlipidemia, unspecified (7) HTN (hypertension) Status: Chronic Qualifiers: Hypertension type: essential hypertension Qualified Code(s): I10 - Essential (primary) hypertension Category: Medical Code(s): I10 - Essential (primary) hypertension (8) Hyperkalemia Status: Acute Category: Medical Code(s): E87.5 - Hyperkalemia - Assessment and plan all Dx Assessment and Plan for all problems:: 1. Continue Rocephin and azithromycin, Solu-Medrol. 2. Patient will be given ipratropium nebs only 3. Continue Kayexalate while awaiting potassium this morning 4. Patient's oxygen will will be weaned to 2 L and patient oxygenation will be reassessed
[2020-12-19 08:21] LABS: Basophils # 0.1 K/mm3 (0-0.2); Basophils % 0.3 % (0.1-2.0); Eosinophils % 0.1 % (0.1-12.0); Hematocrit 37.8 % (37.0-47.0); Hemoglobin 11.4 g/dL (12.2-16.2); Lymphocytes % 13.1 % (10-50); Mean Corpuscular Hemoglobin 28.5 pg (27.0-31.2); Mean Platelet Volume 7.8 fl (7.4-10.4); Monocytes # 0.9 K/mm3 (0.1-1.0); Monocytes % 4.1 % (1.7-9.3); Neutrophils # 18.8 K/mm3 (1.8-7.8); Neutrophils % 82.6 % (37.0-80.0); Platelet Count 367 K/mm3 (142-424); Red Blood Count 3.98 M/mm3 (4.20-5.40); Red Cell Distribution Width 15.2 % (11.5-17.5); White Blood Count 22.8 K/mm3 (4.8-10.8)
[2020-12-19 08:28] LABS: MANUAL DIFFERENTIAL MANUAL DIFFERENTIAL (MANUAL DIFF)
[2020-12-19 08:29] LABS: Chloride 105 mmol/L (98-107); Potassium 4.7 mmoL/L (3.5-5.1); Sodium 142 mmol/L (136-145)
[2020-12-19 08:32] LABS: Anion Gap 13.7 mEq/L (5-15); Blood Urea Nitrogen 25 mg/dl (7-17); Calcium 9.2 mg/dl (8.4-10.2); Carbon Dioxide 28 mmol/L (22.0-30.0); Creatinine Clearance Estimated 72 mL/min (50-200); Estimated Glomerular Filt Rate 54 ml/min (>60); GFR (African American) 66 ML/MIN (>60); Glucose 183 mg/dl (74-100)
[2020-12-19 09:29] LABS: Lymphocytes % 13 % (10-50); Monocytes % 4 % (2-9); Neutrophils % 83 % (42-76); Platelet Estimate Normal; RBC Morphology Normal; Total Cells Counted 100
[2020-12-19 10:32] LABS: POC Glucose,Bedside 164 (70-110)
--- NOTE | 2020-12-19 10:55 | PC.NURSE ---
RA SAT=84% AT REST, RETURNED PT BACK ON 2L NC
--- NOTE | 2020-12-19 11:38 | SW/DCPLANNER ---
SET UP HOME 02 FOR THIS PATIENT WITH ANTICIPATION FOR DISCHARGE IN THE NEXT DAY OR SO.. PATIENT STATES SHE USES [facility] FOR 02 AT NIGHT WITH HER C-PAP BUT HAS A NEED FOR IT CONTINUOUS USE... A PORTABLE WILL BE DELIVERED THIS AFTERNOON...
[2020-12-19 16:19] LABS: POC Glucose,Bedside 153 (70-110)
--- NOTE | 2020-12-19 18:12 | PC.NURSE ---
Pt currently on 2 L O2 per nasa cannula, SPO2 92%. Lungs noted to have wheezes throughout and at times they are audible when pt has been up ambulating in her room. HR regular, tachy periodically. Remains afebrile. Abdomen soft,non-tender w/ active BS in al quads. Pt has had mulitple BM's this shift. Voiding w/o difficulty. Urine is clear and drk yellow in color. Skin is intact. Scattered bruising on BUE. She has sat up in chair and on side of bed at intervals this shift, tolerates well. O2 was delivered by [facility] this shift. Medicated w/ tylenol for RAZA. Call martinez w/in reach. No other needs voiced.
[2020-12-20 00:49] LABS: POC Glucose,Bedside 189 (70-110)
[2020-12-20 03:38] VITALS: BP 123/78; PULSE 84; RESP 20; TEMP 36.5; O2SAT 94
--- NOTE | 2020-12-20 04:59 | PC.NURSE ---
A&OX4. PT TOLERATING 2LNC THIS SHIFT. PT DOES SEEM TO BECOME WINDED WHEN MOVING AROUND IN BED, DRY HACKY COUGH PRESENT AT TIMES. PT UP INDEPENDENTLY IN ROOM. PT C/O RAZA AND ANXIETY, TREATED WITH PRN TYLENOL AND XANAX. ON REASSESSMENT, PT RESTING IN BED. PT HAS SLEPT WELL T/O SHIFT. NO OTHER C/O THUS FAR, VSS WILL CONTINUE TO MONITOR.
[2020-12-20 05:42] LABS: POC Glucose,Bedside 149 (70-110)
[2020-12-20 06:13] VITALS: BMI 34.0
[2020-12-20 06:25] VITALS: PULSE 60; PULSE 66; O2SAT 93
[2020-12-20 07:43] VITALS: BP 126/75; PULSE 89; RESP 20; TEMP 36.7; O2SAT 92
--- NOTE | 2020-12-20 07:43 | HMH.DCSUM ---
General - General Admission date:: 12/17/20 Discharge date: 12/20/20 HPI HPI: Patient presented to the emergency department with increasing shortness of breath and weakness developing on the day of admission. Today she admits she likely overdid it this past . Nonetheless when her dyspnea began to develop she did not respond to use of her rescue inhaler at home. She became increasingly short of breath she sought treatment at the emergency department. In the ER patient was hypoxic and blood gas revealed mild respiratory acidosis. Patient had mild elevation in potassium and creatinine and chest x-ray suspicious for right lower lobe infiltrate. Patient was admitted and placed on community-acquired pneumonia protocol along with steroids and aerosols for COPD exacerbation and acute respiratory failure. Hospital Course Hospital Course: Patient was admitted with COPD exacerbation and acute respiratory failure with increasing oxygen requirement, as well as suspicion of pneumonia on chest x-ray. She was admitted on community-acquired pneumonia protocol along with steroids and aerosols. Patient began to improve rather quickly once treatment was initiated. She was admitted on 5 L of oxygen via nasal cannula and by the following morning this was weaned to 3 L and patient was able to be weaned to 2 L by December 20. Patient remained afebrile during hospitalization. She did develop tremors and increased anxiety from use of short acting beta agonist as her aerosol and this was ultimately discontinued in favor of ipratropium only. Patient's white blood cell count did rise although this was believed to be due to the steroids. On December 20 patient's COPD exacerbation had improved enough to allow for discharge with supplemental oxygen at home and continued antibiotics and steroids. Patient will follow up with her primary care physician within 1 week. Patient had mild acute kidney injury on admission. Metformin, lisinopril were held. By the following morning after IV fluids patient's renal function had returned to baseline. Patient did have hyperkalemia. This was treated with Kayexalate until resolved. Objective Vital signs: Temp Pulse Resp BP Pulse Ox 97.7 F 66 20 123/78 93 L 12/20/20 03:38 12/20/20 06:25 12/20/20 03:38 12/20/20 03:38 12/20/20 06:25 no acute distress - *Routine HEENT Exam Head: Present: normocephalic Eye: Present: EOMI, PERRL ENT: Present: mucous membranes moist - *Routine Neck Exam Present: supple - *Routine Respiratory Exam Present: wheezes - *Routine Cardiovascular Exam Present: RRR - *Routine Abdominal Exam Present: soft, normoactive bowel sounds. Absent: tenderness - *Routine Extremities Exam Absent: clubbing, edema - *Routine Skin Exam Present: warm - Detailed Eye Exam Eyelids: Bilateral normal inspection Results Labs on day of discharge: Labs from last 24 hours 12/20/20 12/19/20 12/19/20 05:25 20:43 16:09 WBC RBC Hgb Hct MCV MCH MCHC RDW Plt Count MPV Neut % (Auto) Lymph % (Auto) [place] % (Auto) Eos % (Auto) Baso % (Auto) Neut # (Auto) Lymph # (Auto) [place] # (Auto) Eos # (Auto) Baso # (Auto) Total Counted Neutrophils % (Manual) Lymphocytes % (Manual) Monocytes % (Manual) Platelet Estimate RBC Morphology Sodium Potassium Chloride Carbon Dioxide Anion Gap BUN Creatinine Estimated Creat Clear Estimated GFR Est GFR ( Amer) Glucose POC Glucose 149 H 189 H 153 H Calcium 12/19/20 12/19/20 12/19/20 10:20 08:16 08:16 WBC 22.8 H* D RBC 3.98 L Hgb 11.4 L Hct 37.8 MCV 95.0 MCH 28.5 MCHC 30.0 L RDW 15.2 Plt Count 367 MPV 7.8 Neut % (Auto) 82.6 H Lymph % (Auto) 13.1 [place] % (Auto) 4.1 Eos % (Auto) 0.1 Baso % (Auto) 0.3 Neut # (Auto) 18.8 H Lymph # (
[2020-12-20 08:00] VITALS: O2SAT 92
[2020-12-20 08:17] LABS: Basophils % 0.1 % (0.1-2.0); Hematocrit 36.6 % (37.0-47.0); Hemoglobin 11.3 g/dL (12.2-16.2); Lymphocytes # 2.2 K/mm3 (0.7-4.5); Lymphocytes % 13.8 % (10-50); Mean Corpuscular HGB Conc 30.8 g/dL (31.8-35.4); Mean Corpuscular Hemoglobin 28.5 pg (27.0-31.2); Mean Corpuscular Volume 92.3 fl (81-99); Mean Platelet Volume 7.6 fl (7.4-10.4); Monocytes # 0.6 K/mm3 (0.1-1.0); Monocytes % 3.6 % (1.7-9.3); Neutrophils # 12.9 K/mm3 (1.8-7.8); Neutrophils % 82.4 % (37.0-80.0); Platelet Count 340 K/mm3 (142-424); Red Blood Count 3.97 M/mm3 (4.20-5.40); Red Cell Distribution Width 15.4 % (11.5-17.5); White Blood Count 15.7 K/mm3 (4.8-10.8)
[2020-12-20 08:20] LABS: Chloride 106 mmol/L (98-107); MANUAL DIFFERENTIAL MANUAL DIFFERENTIAL (MANUAL DIFF); Potassium 4.4 mmoL/L (3.5-5.1); Sodium 142 mmol/L (136-145)
[2020-12-20 08:23] LABS: Anion Gap 12.4 mEq/L (5-15); Blood Urea Nitrogen 25 mg/dl (7-17); Calcium 9.2 mg/dl (8.4-10.2); Carbon Dioxide 28 mmol/L (22.0-30.0); Creatinine Clearance Estimated 72 mL/min (50-200); Estimated Glomerular Filt Rate 61 ml/min (>60); GFR (African American) 74 ML/MIN (>60); Glucose 175 mg/dl (74-100)
[2020-12-20 09:00] LABS: Lymphocytes % 19 % (10-50); Monocytes % 3 % (2-9); Neutrophils % 78 % (42-76); Platelet Estimate Normal; RBC Morphology Normal; Total Cells Counted 100
--- NOTE | 2020-12-20 09:21 | PC.NURSE ---
Spoke with Jesica from pain clinic, Pt. had [employer]oitnment with them to remove sutures, Ok per pain clinic to go ahead and remove stitches and apply mastisol with steri-strips.
--- NOTE | 2020-12-20 10:25 | PC.NURSE ---
Sutures removed from x2 incision sites on lower back. Mastisol with steri-strips in place. Pt. tolerated well. Nurse educated pt. on steri-strips. Pt. and family v/u.
--- NOTE | 2020-12-20 10:54 | PC.NURSE ---
Discharge teaching provided. Questions encouraged and answered. Pt. and family v/u.
--- NOTE | 2020-12-20 11:15 | PC.NURSE ---
Pt. taken out by staff in a wheelchair.
== END 2020-12-20 11:15 | disposition home or self-care (01) | DRG 193 ==
LOC: ER 21:36 → 2ND 21:42
PROVIDERS: Admitting Provider Family Medicine; Emergency Provider Emergency Medicine; PCP Internal Medicine; Visit Provider Family Medicine
DX: J18.9 Pneumonia, unspecified organism (principal); J96.01 Acute respiratory failure with hypoxia; J44.1 Chronic obstructive pulmonary disease with (acute) exacerbation; N17.9 Acute kidney failure, unspecified; J44.0 Chronic obstructive pulmonary disease with (acute) lower respiratory infection; E87.2 Acidosis; T38.0X5A Adverse effect of glucocorticoids and synthetic analogues, initial encounter; I10 Essential (primary) hypertension; E11.9 Type 2 diabetes mellitus without complications; Z88.1 Allergy status to other antibiotic agents; Z88.8 Allergy status to other drugs, medicaments and biological substances; Z79.82 Long term (current) use of aspirin; Z79.84 Long term (current) use of oral hypoglycemic drugs; Z99.81 Dependence on supplemental oxygen; E66.9 Obesity, unspecified; M19.90 Unspecified osteoarthritis, unspecified site; E03.9 Hypothyroidism, unspecified; G47.33 Obstructive sleep apnea (adult) (pediatric); K21.9 Gastro-esophageal reflux disease without esophagitis; Z79.899 Other long term (current) drug therapy; F32.9 Major depressive disorder, single episode, unspecified; F41.9 Anxiety disorder, unspecified; Z68.34 Body mass index [BMI] 34.0-34.9, adult; Z87.891 Personal history of nicotine dependence; E87.5 Hyperkalemia; E78.2 Mixed hyperlipidemia; R25.1 Tremor, unspecified; T44.7X5A Adverse effect of beta-adrenoreceptor antagonists, initial encounter
CPT/HCPCS: 36415; 71045; 80048; 80053; 82803; 82962; 83605; 83735; 84145; 84484; 85007; 85025; 85651; 86140; 87040; 87070; 87205; 93005; 94640; 96365; 96367; 96375; 99284; G0378; J0456; U0003

== ENCOUNTER → 2021-01-03 10:10 | Outpatient (POV) | payer MEDICARE, OTHER, SELFPAY ==
[2021-01-03 10:28] VITALS: BP 143/84; PULSE 100; RESP 20; O2SAT 94; BMI 33.3
--- NOTE | 2021-01-03 12:22 | HMH.PAINSOAP ---
[facility] Pain Management SOAP Note Subjective:: Is a pleasant 75-year-old white female who presents today for follow-up. Patient had her neurostimulator removed. She rates her pain today a 5 out of 10 she recently has been hospitalized for pneumonia during the stay they removed her stitches. Her incisions are well-healed no sign symptoms of infection patient needs with her orthopedic surgeon tomorrow for potential bilateral knee replacement. ROS General: no recent weight change, no fever, no sleep disturbances Respiratory: no cough, no shortness of air, no recurring pulmonary infections Cardiovascular/Peripheral Vascular: No chest pain, No palpitations, no edema, no shortness of breath. Gastrointestinal: no new onset incontinence, normal bowel movements reported Genitourinary: no new onset incontinence Musculoskeletal: Knee pain Psychiatric: normal mood/ affect Neurological: [denies new onset weakness in extremities], [denies new onset balance issues] Objective:: Physical Exam General: Alert and oriented x3, no acute distress, pleasant and cooperative, [on room air] Lungs: Resps E/U, Symmetrical chest expansion, Eyes: PERRL Musculoskeletal: Flexion and extension of lumbar spine somewhat guarded secondary to pain, deep tendon reflexes normal, strength in upper and lower extremities [5/5], [abnormal gait noted] Neurological: speech clear, 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 Dr. Hinojosa has reviewed this note and agrees with this plan of care. This note was dictated using voice recognition software and may contain errors or omissions [facility] History I have reviewed the patient's past medical history: Yes Medical History: Reports:: Anxiety, Asthma, Chronic Obstructive Pulmonary Disease (COPD), Depression, Diabetes Mellitus Type 2, Gastroesophageal Reflux Disease(GERD), Hyperlipidemia, Hypertension, Migraine Denies:: Cancer, Diabetes Mellitus Type 1, Internal Pacemaker, MRSA, Seizures *Have you ever received a pneumonia vaccine?: Yes *Have you received a flu vaccine this season?: Yes Other Medical History: Reports: Anemia, Arthritis, Cataracts, Hypothyroidism, Sinus Problems. Denies: Blood Transfusion Reaction Laterality Cases: Bilateral: Tonsillectomy Other Surgeries: Yes: No Previous Surgery, Appendectomy, Cardiac Catheterization, Cholecystectomy, Colonoscopy, Colon Resection, , Hysterectomy-Total, Other (bowel surgery). No: Pacemaker Amputation: No Fractures: No - *Social History Smoking Status: Former smoker Tobacco Type: cigarettes # Packs/Day (cigarettes): 1 Alcohol Intake: never Alcohol Intake Frequency:: other Substance Use Type: denies use *Occupational Status:: retired Housing: house Household Members: children *Travel in the last 8 weeks: None - Psychiatric History Pschychiatric History:: Reports:: Anxiety, Depression Family Hx:: Cancer, Heart Attack, Stroke
== END ==
PROVIDERS: PCP Internal Medicine; Visit Provider Clinical Nurse Specialist Family Health
DX: M25.561 Pain in right knee (principal); M25.562 Pain in left knee; M51.16 Intervertebral disc disorders with radiculopathy, lumbar region
CPT/HCPCS: 99212; G0463

== ENCOUNTER → 2021-02-25 11:07 | Outpatient (POV) | payer MEDICARE, OTHER, SELFPAY ==
[2021-02-25 11:16] VITALS: BP 117/80; PULSE 90; RESP 18; O2SAT 92; BMI 32.3
--- NOTE | 2021-02-25 11:37 | HMH.PAINSOAP ---
[facility] Pain Management SOAP Note Subjective:: Patient is a pleasant 75-year-old white female who presents today for follow-up. She has been treated for degenerative disc disease lumbar spine with lumbar radiculopathy symptoms and chronic back pain. She previously had a spinal cord stimulator that was removed earlier this year. She continues to have severe pain in her low back with radiation into her bilateral lower extremities stopping at the knee. She has seen an orthopedic surgeon who recommended hip replacement as well as bilateral knee replacements, however, the patient says that she feels is coming from her back. She rates her pain a 10 out of 10 today. She says that the pain is excruciating and unbearable. She has tried and failed conservative therapies of physical therapy for greater than 6 weeks along with continued home stretching. She has also undergone injections with no significant relief. She has not had any recent imaging of her lumbar spine. We did discuss possible intrathecal therapy as a last option within our clinic, however, she is unsure she wants this. She would like to undergo imaging of her lumbar spine before proceeding with further care. She denies any saddle anesthesia or any changes in bowel or bladder habits. Patient says her pain is worse when she stands and walks and improves somewhat with sitting. She is very uncomfortable sitting in the chair today during our conversation. Review of Systems General: No recent weight changes, no fever, no sleep disturbances Respiratory: No cough, no shortness of air, no recurring pulmonary infections Cardiovascular/peripheral vascular: No chest pain, no palpitations, no edema, no shortness of breath Gastrointestinal: No new onset incontinence, normal bowel movements reported Genitourinary: No new onset incontinence Musculoskeletal: Low back pain, bilateral knee pain Psychiatric: Normal mood/affect Neurological: [Denies weakness in extremities], [denies balance issues] Objective:: Physical exam General: Alert and oriented x3, no acute distress, pleasant and cooperative, [on room air] Lungs: Respirations even and unlabored, symmetrical chest expansion Eyes: PERRL Musculoskeletal: Flexion and extension of [] lumbar spine somewhat guarded secondary to pain, deep tendon reflexes normal, strength in upper and lower extremities [5/5], [abnormal gait noted] Neurological: Speech clear, 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 We will send her for an MRI of her lumbar spine and see her back afterwards to reevaluate her symptoms and discuss a further plan of care. Intrathecal therapy is likely the next option in our clinic. She failed a spinal cord stimulator trial, physical therapy for more than 6 weeks and home stretching. She is also tried injective therapy. We will see her back afterwards to reevaluate her symptoms. Patient has been instructed to contact the clinic with any concerns before the next appointment. Dr. Dunn has reviewed this note and agrees with this plan of care. This note was dictated using voice recognition software and make contain errors or omissions. [facility] History I have reviewed the patient's past medical history: Yes Medical History: Reports:: Anxiety, Asthma, Cancer, Chronic Obstructive Pulmonary Disease (COPD), Depression, Diabetes Mellitus Type 2, Gastroesophageal Reflux Disease(GERD), Hyperlipidemia, Hypertension, Migraine Denies:: Diabetes Mellitus Type 1, Internal Pacemaker, MRSA, Seizures *Have you ever received a pneumonia vaccine?: Yes *Have you received a flu vaccine this season?: Yes Other Medical History: Reports: Anemia, Arthritis, Cataracts, Hypothyroidism, Sinus Problems. Denies: Blood Transfusion Reaction Laterality Cases: Bilateral: Tonsillectomy Other
== END ==
PROVIDERS: PCP Internal Medicine; Visit Provider Clinical Nurse Specialist Family Health
DX: M51.16 Intervertebral disc disorders with radiculopathy, lumbar region (principal); M25.561 Pain in right knee; M25.562 Pain in left knee
CPT/HCPCS: 99212; G0463

== ENCOUNTER → 2021-03-01 07:55 | Outpatient (CLI) | payer MEDICARE, OTHER, SELFPAY | PROVIDERS: PCP Internal Medicine; Visit Provider Clinical Nurse Specialist Family Health | DX: M54.5 Low back pain (principal) ==

== ENCOUNTER → 2021-03-12 07:48 | Outpatient (CLI) | payer MEDICARE, OTHER, SELFPAY ==
--- NOTE | 2021-03-12 07:52 | CT_ITS ---
PROCEDURE: CT LUMBAR SPINE WO CON CLINICAL HISTORY: BACK PAIN Hx of neurostimulator Placement and removal COMPARISON: CT CT ABDOMEN PELVIS WO CON from 12/01/2019 TECHNIQUE: Axial images obtained with sagittal and coronal reformats. All CT scans at the facility use one or more dose reduction, viz: automated exposure control, ma/kV adjustment per patient size (including targeted exams where dose is matched to indication, i.e. head), or iterative reconstruction technique. FINDINGS: There is mild levoscoliosis of the lumbar spine. Multilevel degenerative changes are present as outlined below. There is generalized osteopenia. No acute fracture or dislocation is evident. T11-T12: Degenerative disc disease with mild left-sided facet hypertrophic change and mild left-sided lateral recess narrowing. T12-L1: Minimal loss of height anteriorly of T12 not significantly changed. L1-L2: Unremarkable. L2-L3: Degenerative disc disease. Prominent right lateral bridging osteophytes. Minimal endplate irregularity with Schmorl's nodes with concentric bulging disc and mild right-sided foraminal narrowing from endplate hypertrophic change the prominent right lateral osteophytes is abutting the exiting right L2 nerve root. There is endplate irregularity at L2-L3 which may be degenerative in nature. The disc space is slightly narrowed. L3-L4: Mild concentric bulging disc with degenerative disc disease with endplate osteophytes projecting laterally toward the right along with the bulging disc. There is mild right-sided foraminal narrowing L4-5: Degenerative disc disease with vacuum disc and concentric bulging disc. Moderate facet hypertrophic changes on the left causing left lateral recess and foraminal narrowing. L5-S1: Degenerative disc disease. Minimal right foraminal disc protrusion with mild right-sided foraminal narrowing. There is a irregular sclerotic focus involving the left ilium posteriorly and medially measuring 17 mm. This is not significantly changed possibly due to a bone island. No lytic lesions evident. There are nonobstructing bilateral renal calculi measuring up to 3 mm on the right 2 mm on the left.. IMPRESSION: Abnormal CT of the lumbar spine with multilevel lumbar spondylosis, scoliosis and diffuse osteopenia. There is multilevel degenerative disc disease with facet hypertrophic change and endplate osteophytes. Please see above for detailed description at each level. Dictated by: Kishore Winkler MD 03/13/2021 08:09 Kishore Winkler MD in [place] 03/13/2021 08:09
== END ==
PROVIDERS: PCP Internal Medicine; Visit Provider Clinical Nurse Specialist Family Health
DX: M54.5 Low back pain (principal)
CPT/HCPCS: 72131

== ENCOUNTER → 2021-03-25 08:58 | Outpatient (POV) | payer MEDICARE, OTHER, SELFPAY ==
[2021-03-25 09:20] VITALS: BP 112/60; PULSE 40; RESP 18; O2SAT 97; BMI 32.3
--- NOTE | 2021-03-25 10:12 | HMH.PAINSOAP ---
[facility] Pain Management SOAP Note Subjective:: Patient is a pleasant 75 year old female who presents today for follow up. Patient is being treated for degenerative disc disease lumbar spine with lumbar radiculopathy symptoms knee pain. Patient has had multiple conservative therapies. She has undergone injective therapy in our clinic on multiple occasions with no significant relief. The patient has also undergone a trial for spinal cord stimulation and did have an implant. Unfortunately, the emulate her did not work. As result, she did have her implant removed. She does still have leads in place for which she says are giving her significant pain. She says it is tender to the area of the anchor and placement of the leads. Patient says that she has had her stimulator removed her approximately 6 months ago. She says that she thinks she had a [employer] spinal cord stimulator. Today, her pain is an 8 out of 10. Her pain is primarily in her low back area with right hip pain and right leg pain. She says she is unable to do any type of housework or any walking for longer than 5 to 10 minutes without having significant pain. The pain is excruciating and unbearable. She says that any type of movement worsens her pain. She is here today to follow-up after a CT scan. She and I did review the CT scan and I did discuss with the patient her options regarding treatment in our clinic versus orthopedic consult/neurosurgery consult. Patient would like to postpone consult and would like to discuss possible intrathecal therapy. Patient is even uncomfortable during the conversation today while sitting in the chair. She is repositioning often. She does say standing and walking, however, her when her pain is at the worst. She does get some relief with sitting. She is complaining of paresthesia to her bilateral lower extremities as well. Review of Systems General: No recent weight changes, no fever, no sleep disturbances Respiratory: No cough, no shortness of air, no recurring pulmonary infections Cardiovascular/peripheral vascular: No chest pain, no palpitations, no edema, no shortness of breath Gastrointestinal: No new onset incontinence, normal bowel movements reported Genitourinary: No new onset incontinence Musculoskeletal: Low back pain, mid back pain, right hip pain, bilateral lower extremity pain with numbness and tingling Psychiatric: Normal mood/affect Neurological: Weakness in lower extremities Objective:: Physical exam General: Alert and oriented x3, no acute distress, pleasant and cooperative, [on room air] Lungs: Respirations even and unlabored, symmetrical chest expansion Eyes: PERRL Musculoskeletal: Flexion and extension of thoracic and lumbar spine somewhat guarded secondary to pain, deep tendon reflexes normal, strength in upper and lower extremities [5/5], [abnormal gait noted] Neurological: Speech clear, glaze supervisor equal, no gross sensory deficit Assessment:: Degenerative disc disease lumbar spine with lumbar radiculopathy symptoms, bilateral knee pain, right hip pain, mid back pain Plan:: Patient has tried and failed conservative therapies of physical therapy for greater than 6 weeks along with continued home stretching. She has also tried injective therapy as well a spinal cord stimulation. She has had her stimulator removed, however, her leads are still implanted. She is having tenderness at the site of the anchor. She has requested to have the leads removed. She would like to proceed with an intrathecal pain pump trial. Patient does take Xanax and is concerned for oversedation with opiates and the intrathecal pump. She is not sure she would be able to stop taking her Xanax, as she has been taking this for a long period of time. We did discuss that we can schedule the patient for a bupivacaine only trial at this time. If she does not get relief, we can proceed with possible opiate trial. She is in agreement. She says t
== END ==
PROVIDERS: PCP Internal Medicine; Visit Provider Clinical Nurse Specialist Family Health
DX: M51.16 Intervertebral disc disorders with radiculopathy, lumbar region (principal); M25.562 Pain in left knee; M25.561 Pain in right knee; M25.551 Pain in right hip; M54.6 Pain in thoracic spine
CPT/HCPCS: 99212; G0463

== ENCOUNTER → 2021-04-11 10:43 | Outpatient (POV) | payer MEDICARE, OTHER, SELFPAY ==
[2021-04-11 11:03] VITALS: BP 89/68; PULSE 92; RESP 20; O2SAT 94; BMI 33.3
--- NOTE | 2021-04-11 11:14 | HMH.PAINSOAP ---
[facility] Pain Management SOAP Note Subjective:: Patient is a 75-year-old white female who presents today for follow-up. The patient is being treated for degenerative disc disease lumbar spine with lumbar radiculopathy symptoms. Patient does have a spinal cord stimulator that has been explanted, however, still has leads in place. She did not get any significant relief with her device. She continues to have significant pain. Her pain is a 10 out of 10 today. She has tried and failed her for what she says conservative therapies of physical therapy for more than 6 weeks, continued home stretching, injective therapy, as well as failed spinal cord stimulator. She has tried oral medications of hydrocodone and patches (unsure of medication). Patient says she has not gotten any relief. Patient was worked up for possible intrathecal pain pump trial, however, she has now decided she does not want to follow through with the trial. Patient is inquiring about other options. She has been advised that the only other option we can offer her in our clinic is possible neurosurgical consult versus injective therapy. She does not want any further injective therapy. She has requested a neurosurgical consult at this point. Review of Systems General: No recent weight changes, no fever, no sleep disturbances Respiratory: No cough no recurring pulmonary infections Cardiovascular/peripheral vascular: No chest pain, no palpitations, [no edema], no shortness of breath Gastrointestinal: No new onset incontinence, normal bowel movements reported Genitourinary: No new onset incontinence Musculoskeletal: [], low back pain with bilateral leg pain worse to right hip and right leg, Psychiatric: [Normal mood/affect] Neurological: [Denies weakness in extremities], [denies balance issues] Assessment:: Degenerative disc disease lumbar spine with lumbar radiculopathy symptoms Plan:: Patient is limited in options at this point. She does not want to do injective therapy nor does she want to be managed with oral medications. We did discuss intrathecal therapy, however, she has now declined to proceed with trial. We will refer the patient to Dr. Alcantara to see if she is a neurosurgical candidate. She has tried and failed conservative therapies of physical therapy, home stretching, anti-inflammatories, and injections. The patient's spinal cord stimulator gave her minimal relief and was explanted. She does still have leads in place. Patient has said that she will follow up with Dr. Alcantara. If she is not a neurosurgical candidate, she will follow back up with us to discuss removal of her leads. Patient has been instructed to contact the clinic with any concerns before the next appointment. Dr. Hinojosa has reviewed this note and agrees with this plan of care. This note was dictated using voice recognition software and make contain errors or omissions. [facility] History I have reviewed the patient's past medical history: Yes Medical History: Reports:: Anxiety, Asthma, Cancer, Chronic Obstructive Pulmonary Disease (COPD), Depression, Diabetes Mellitus Type 2, Gastroesophageal Reflux Disease(GERD), Hyperlipidemia, Hypertension, Migraine Denies:: Diabetes Mellitus Type 1, Internal Pacemaker, MRSA, Seizures *Have you ever received a pneumonia vaccine?: Yes *Have you received a flu vaccine this season?: Yes Other Medical History: Reports: Anemia, Arthritis, Cataracts, Hypothyroidism, Sinus Problems. Denies: Blood Transfusion Reaction Laterality Cases: Bilateral: Tonsillectomy Other Surgeries: Yes: No Previous Surgery, Appendectomy, Cardiac Catheterization, Cholecystectomy, Colonoscopy, Colon Resection, , Hysterectomy-Total, Other (bowel surgery). No: Pacemaker Amputation: No Fractures: No - *Social History Smoking Status: Current every day smoker Tobacco Type: cigarettes # Packs/Day (cigarettes): 1 Alcohol Intake: never Alcohol Intake Frequency:: other Substance Use Type: denies us
== END ==
PROVIDERS: Visit Provider Clinical Nurse Specialist Family Health
DX: M51.16 Intervertebral disc disorders with radiculopathy, lumbar region (principal)
CPT/HCPCS: 99212; G0463

== ENCOUNTER 2021-04-12 15:04 | Observation (INO) | payer MEDICARE, OTHER, SELFPAY ==
[2021-04-12 14:53] VITALS: BP 136/84; PULSE 95; RESP 20; TEMP 36.4; O2SAT 92; BMI 34.3
[2021-04-12 15:10] VITALS: O2SAT 97
--- NOTE | 2021-04-12 15:15 | CT_ITS ---
PROCEDURE: CT HEAD/BRAIN WO CON CLINICAL INDICATION: fall, dizzy Head injury with headache/pain, contusion, abrasion or hematoma COMPARISON: No exams were available for comparison TECHNIQUE: Axial images obtained. All CT scans at the facility use one or more dose reduction, viz: automated exposure control, ma/kV adjustment per patient size (including targeted exams where dose is matched to indication, i.e. head), or iterative reconstruction technique. FINDINGS: No midline shift, mass effect, intracranial hemorrhage, hydrocephalus, or extra-axial fluid collection is evident. There is generalized atrophy with hypoattenuation of the periventricular white matter consistent with microangiopathic changes. The calvarium has an unremarkable appearance. Calvarium has a somewhat mottled appearance nonspecific and may be related to generalized osteopenia. Multiple myeloma could have a similar appearance. No sinus air-fluid level. IMPRESSION: No acute intracranial finding. Mottled appearance of the calvarium which could be seen with osteopenia or multiple myeloma Dictated by: Kishore Winkler MD 04/12/2021 16:13 Kishore Winkler MD in [facility] 04/12/2021 16:13
[2021-04-12 15:16] LABS: Basophils # 0.1 K/mm3 (0-0.2); Basophils % 0.6 % (0.1-2.0); Chloride 104 mmol/L (98-107); Eosinophils # 0.1 K/mm3 (0.0-0.4); Eosinophils % 0.7 % (0.1-12.0); Hematocrit 40.2 % (37.0-47.0); Hemoglobin 12.2 g/dL (12.2-16.2); Lymphocytes # 1.7 K/mm3 (0.7-4.5); Mean Corpuscular HGB Conc 30.3 g/dL (31.8-35.4); Mean Corpuscular Hemoglobin 25.4 pg (27.0-31.2); Mean Corpuscular Volume 83.7 fl (81-99); Mean Platelet Volume 7.7 fl (7.4-10.4); Monocytes # 0.4 K/mm3 (0.1-1.0); Monocytes % 3.3 % (1.7-9.3); Neutrophils # 8.5 K/mm3 (1.8-7.8); Neutrophils % 79.5 % (37.0-80.0); Platelet Count 416 K/mm3 (142-424); Potassium 4.3 mmoL/L (3.5-5.1); Red Blood Count 4.81 M/mm3 (4.20-5.40); Red Cell Distribution Width 16.3 % (11.5-17.5); Sodium 146 mmol/L (136-145); White Blood Count 10.7 K/mm3 (4.8-10.8)
[2021-04-12 15:19] LABS: Alanine Aminotransferase 28 U/L (12-78); Albumin Level 4.4 g/dl (3.5-5.0); Albumin/Globulin Ratio 1.4 (1.1-1.8); Alkaline Phosphatase 80 U/L (38-126); Anion Gap 13.3 mEq/L (5-15); Aspartate Amino Transferase 40 U/L (14-36); Bilirubin,Total 0.4 mg/dl (0.2-1.3); Blood Urea Nitrogen 32 mg/dl (7-17); Calcium 9.7 mg/dl (8.4-10.2); Carbon Dioxide 33 mmol/L (22.0-30.0); Creatinine Clearance Estimated 71 mL/min (50-200); Estimated Glomerular Filt Rate 54 ml/min (>60); GFR (African American) 66 ML/MIN (>60); Globulin 3.2 g/dL (1.3-3.2); Glucose 162 mg/dl (74-100); Total Protein,Serum 7.6 g/dl (6.3-8.2)
--- NOTE | 2021-04-12 15:20 | PC.NURSE ---
Pt to CT scanner via stretcher at this time.
[2021-04-12 15:34] LABS: NT Pro Brain Natriuretic Pep. 391 pg/mL (0-125)
[2021-04-12 15:38] LABS: Troponin I < 0.01 ng/ml (0.00-0.034)
--- NOTE | 2021-04-12 15:43 | ECG_ITS ---
APPROVED REPORT Exam: Resting ECG HR:86 bpm ECG Measurements Heart Rate 86 AXES MT 132 P 77 QRSd 72 QRS 57 QT 406 T 61 QTc 485 Conclusion Normal sinus rhythm with sinus arrhythmia Normal ECG Electronically signed by : Delvin Newton, 04/14/2021 21:01:55
--- NOTE | 2021-04-12 16:18 | PC.NURSE ---
Purewick placed for urine sample.
[2021-04-12 16:48] LABS: Coronavirus 19, PCR Not Detected (NotDetected); Influenza A, PCR Not Detected (NotDetected); Influenza B, PCR Not Detected (NotDetected)
--- NOTE | 2021-04-12 16:59 | HMH.EDGENADL ---
ED Disposition Clinical Impression: Intractable nausea and vomiting, Hypernatremia, Dehydration Disposition: Admitted as Observation Condition on Discharge: Good Time of Disposition: 17:11 - Critical Care Critical Care Time: No Attestation: On 04/12/21, the high probability of a clinically significant, sudden or life threatening deterioration of the following system(s) required my full and direct attention, intervention and personal management. The time I documented below is in addition to time spent performing reported procedures but includes the following listed in this critical care notation. Medical Decision Making - Medical Records Medical records reviewed: Yes: I reviewed the patient's medical records. - Eric Inquiry Pt receiving controlled substance: No Vital Signs: 04/12/21 14:53 04/12/21 15:10 Temperature 97.6 F Temperature Source Oral Pulse Rate [Right] 95 H Respiratory Rate 20 Blood Pressure [Right Arm] 136/84 Blood Pressure Mean [Right Arm] 101 02 Sat by Pulse Oximetry 92 L 97 Oxygen Delivery Method Room Air Nasal Cannula Oxygen Flow Rate (LPM) 2 - Lab Data Lab results reviewed: Yes: I reviewed the patient's lab results. Lab Results 04/12/21 15:00: WBC 10.7, RBC 4.81, Hgb 12.2, Hct 40.2, MCV 83.7, MCH 25.4 L, MCHC 30.3 L, RDW 16.3, Plt Count 416, MPV 7.7, Neut % (Auto) 79.5, Lymph % (Auto) 16.0, [place] % (Auto) 3.3, Eos % (Auto) 0.7, Baso % (Auto) 0.6, Neut # (Auto) 8.5 H, Lymph # (Auto) 1.7, [place] # (Auto) 0.4, Eos # (Auto) 0.1, Baso # (Auto) 0.1 04/12/21 15:00: Sodium 146 H, Potassium 4.3, Chloride 104, Carbon Dioxide 33 H, Anion Gap 13.3, BUN 32 H, Creatinine 1.00, Estimated Creat Clear 71, Estimated GFR 54 L, Est GFR ( Amer) 66, Glucose 162 H, Calcium 9.7, Total Bilirubin 0.4, AST 40 H, ALT 28, Alkaline Phosphatase 80, Total Protein 7.6, Albumin 4.4, Globulin 3.2, Albumin/Globulin Ratio 1.4 04/12/21 15:00: Troponin I < 0.01, NT-Pro-B Natriuret Pep 391 H Result diagrams: 04/12/21 15:00 04/12/21 15:00 Orders (Tests/Meds): ED MEDICATIONS Discontinued Medications Generic Name Dose Route Start Last Admin Trade Name Arianne PRN Reason Stop Dose Admin Ondansetron HCl 4 mg 04/12/21 16:13 04/12/21 16:18 Ondansetron 4mg/2ml Vial IV 04/12/21 16:14 4 mg ONCE ONE Administration ORDERS Category Date Time Status Rapid PCR Covid and Flu A/B Stat Lab 04/12/21 16:40 Received Urinalysis and Microscopic Stat Lab 04/12/21 15:15 Ordered - CT Data CT Scan: Head Time Received: 16:30 Preliminary Findings: Abnormal Findings Narrative: No acute intracranial finding. Mottled appearance of the calvarium which could be seen with osteopenia or multiple myeloma Medical Decision Narrative: 75yo F evaluated for nausea and vomiting. Patient is in no acute distress on initial evaluation. She wears oxygen at home majority of the time on 2 L. She is stable on 2 L currently. Her abdomen is soft and nontender throughout. Patient is nauseated and therefore treated with Zofran. She receives IV fluids during her evaluation. CBC is unremarkable. Metabolic panel reveals a mild hypernatremia and dehydration, consistent with gastroenteritis or other source of nausea and vomiting. Patient's BNP is mildly elevated at 390. Case discussed with Dr. Linares who agrees to admit the patient for further management. General Adult HPI - General Chief complaint: Weakness Stated complaint: weakness, vomiting, fall Time Seen by Provider: 04/12/21 15:15 Mode of Arrival: EMS Limitations: No Limitations Description of Symptoms (Recalled from ER Triage Doc. by RN): c/o weakness x2-3 days with vomiting & diarrhea. pt had fall last night due to weakness, denies injury/LOC. also c/o right ear discomfort. - History of Present Illness HPI narrative: 75yo F presents to the emergency department secondary to nausea with vomiting and diarrhea. She also reports mild shortness of breath. She r
[2021-04-12 17:50] VITALS: BP 131/70; PULSE 88; RESP 18; TEMP 36.4; O2SAT 92
--- NOTE | 2021-04-12 17:50 | PC.NURSE ---
Report given to REMINGTON Lemus
[2021-04-12 18:38] VITALS: BP 133/80; PULSE 89; RESP 20; TEMP 36.4; O2SAT 91; BMI 32.6
[2021-04-12 20:00] VITALS: BP 131/86; PULSE 104; RESP 18; TEMP 36.5; O2SAT 93
--- NOTE | 2021-04-12 20:57 | HMH.HP ---
*Admission Date: 04/12/21 *Chief complaint: nausea, dizziness *History of present illness: Ms. Lema is a 75yo F with extensive medical history (see history as follows). She presented to the ER this afternoon due to persistent nausea and vomiting along with some nonbloody diarrhea. Had developed some dizziness due to dehydration and GI symptoms at home. On arrival to the ER is quite weak, complaining of some worsening shortness of breath from baseline. Work-up concerning for mild dehydration. ER attempted p.o. challenge but patient unable to tolerate any oral intake. Medicine was contacted for admission to observation with gentle rehydration, advancement of p.o. fluids, and repeat lab work in the morning. On interview after arriving to the floor, she states she feels little better after some fluids in the ER. Asking for some ice chips. Still complaining of some mild nausea. Denies chest pain, palpitations, confusion. No blood in vomit or stool. Emesis nonbilious. Denies any known sick contact. Nothing at home is improved her symptoms. [facility] History I have reviewed the patient's past medical history: Yes Medical History: Reports:: Anxiety, Asthma, Chronic Obstructive Pulmonary Disease (COPD), Deep Vein Thrombosis, Depression, Diabetes Mellitus Type 2, Gastroesophageal Reflux Disease(GERD), Hyperlipidemia, Hypertension, Migraine Denies:: Cancer, Diabetes Mellitus Type 1, Internal Pacemaker, MRSA, Seizures *Have you ever received a pneumonia vaccine?: Yes *Have you received a flu vaccine this season?: Yes Other Medical History: Reports: Anemia, Arthritis, Cataracts, Hypothyroidism, Sinus Problems. Denies: Blood Transfusion Reaction Laterality Cases: Bilateral: Tonsillectomy Other Surgeries: Yes: No Previous Surgery, Appendectomy, Cardiac Catheterization, Cholecystectomy, Colonoscopy, Colon Resection, , Hysterectomy-Total, Other (bowel surgery). No: Pacemaker Amputation: No Fractures: No - *Social History Last grade of school completed: High school graduate Smoking Status: Current every day smoker Tobacco Type: cigarettes # Packs/Day (cigarettes): 1 Alcohol Intake: never Alcohol Intake Frequency:: other Substance Use Type: denies use *Occupational Status:: retired Housing: house Household Members: children *Travel in the last 8 weeks: None - Psychiatric History Pschychiatric History:: Reports:: Anxiety, Depression Family Hx:: Cancer, Heart Attack, Stroke Review of Systems - Review of Systems Review of systems:: pertinent systems reviewed and negative unless documented below (14 point review of systems performed, pertinent positives and negatives as per HPI) Meds Home Medications Medication Instructions Recorded Confirmed Type gabapentin 300 mg capsule 900 mg PO HS 10/06/17 04/12/21 History alprazolam 1 mg tablet 1 mg PO TIDP PRN tab 08/24/18 04/12/21 History omeprazole 40 mg capsule,delayed 40 mg PO BID cap 08/24/18 04/12/21 History release Doxycycline Hyclate [Doxycycline 100 mg PO HS 02/07/19 04/12/21 History 100mg Capsule] Levalbuterol Tartrate 2 puff IH Q4HP PRN 02/07/19 04/12/21 History [Levalbuterol Tartrate Hfa] Milnacipran HCl [Savella] 100 mg PO BID 02/07/19 04/12/21 History lisinopriL [Lisinopril 2.5mg Tab] 2.5 mg PO DAILY 02/07/19 04/12/21 History Rosuvastatin Calcium 20 mg PO HS 02/08/19 04/12/21 History Amitriptyline HCl [Elavil 25mg 25 mg PO HS 02/26/19 04/12/21 History tablet] Tizanidine HCl [Zanaflex 4mg 4 mg PO BID 05/18/20 04/12/21 History tab] alendronate 70 mg tablet 70 mg PO WEEKLY tab 10/11/20 04/12/21 History levocetirizine 5 mg tablet 5 mg PO DAILY tab 10/11/20 04/12/21 History Diclofenac Sodium [Diclofenac 75mg 75 mg PO BID 11/22/20 04/12/21 History Tab] bisoproloL fumarate [Bisoprolol 10 mg PO HS 11/22/20 04/12/21 History 10mg Tablet] Azelastine HCl [Azelastine Nasal 2 sprays NOSTRIL-B BID 12/18/20 04/12/21 History [place] 30mL Bottle] Bec
[2021-04-13] VITALS: BP 132/57; PULSE 84; RESP 18; TEMP 36.9; O2SAT 95
[2021-04-13 04:00] VITALS: BP 115/51; PULSE 83; RESP 20; TEMP 36.8; O2SAT 93
--- NOTE | 2021-04-13 07:32 | HMH.DCSUM ---
General - General Admission date:: 04/12/21 Discharge date: 04/13/21 HPI HPI: Ms. Lema is a 75yo F with extensive medical history (see history as follows). She presented to the ER this afternoon due to persistent nausea and vomiting along with some nonbloody diarrhea. Had developed some dizziness due to dehydration and GI symptoms at home. On arrival to the ER is quite weak, complaining of some worsening shortness of breath from baseline. Work-up concerning for mild dehydration. ER attempted p.o. challenge but patient unable to tolerate any oral intake. Medicine was contacted for admission to observation with gentle rehydration, advancement of p.o. fluids, and repeat lab work in the morning. On interview after arriving to the floor, she states she feels little better after some fluids in the ER. Asking for some ice chips. Still complaining of some mild nausea. Denies chest pain, palpitations, confusion. No blood in vomit or stool. Emesis nonbilious. Denies any known sick contact. Nothing at home is improved her symptoms. Hospital Course Hospital Course: Overnight patient did well, had no further vomiting after arrival to the floor, tolerated IV fluids well with no shortness of air. Was able to tolerate clear liquids through the night and this morning has eaten a good breakfast of clear liquids along with 1 bowl of oatmeal. Feels much better and wishes to go home. Plan we did discharge home with some Zofran for what sounds like a transient viral gastroenteritis. Cautious diet advancement was discussed, she will follow-up with her regular provider, Dr. Zamorano. Objective Vital signs: Temp Pulse Resp BP Pulse Ox 98.2 F 83 20 115/51 L 93 L 04/13/21 04:00 04/13/21 04:00 04/13/21 04:00 04/13/21 04:00 04/13/21 04:00 no acute distress - *Routine HEENT Exam Head: Present: normocephalic Eye: Present: EOMI, PERRL ENT: Present: mucous membranes moist - *Routine Neck Exam Present: supple - *Routine Respiratory Exam Present: CTA bilaterally - *Routine Cardiovascular Exam Present: RRR - *Routine Abdominal Exam Present: soft, normoactive bowel sounds. Absent: tenderness - *Routine Extremities Exam Absent: cyanosis, clubbing, edema - *Routine Skin Exam Present: warm. Absent: rash - Detailed Eye Exam Eyelids: Bilateral normal inspection Results Labs on day of discharge: Labs from last 24 hours 04/12/21 04/12/21 04/12/21 16:40 15:00 15:00 WBC RBC Hgb Hct MCV MCH MCHC RDW Plt Count MPV Neut % (Auto) Lymph % (Auto) [place] % (Auto) Eos % (Auto) Baso % (Auto) Neut # (Auto) Lymph # (Auto) [place] # (Auto) Eos # (Auto) Baso # (Auto) Sodium 146 H Potassium 4.3 Chloride 104 Carbon Dioxide 33 H Anion Gap 13.3 BUN 32 H Creatinine 1.00 Estimated Creat Clear 71 Estimated GFR 54 L Est GFR ( Amer) 66 Glucose 162 H Calcium 9.7 Total Bilirubin 0.4 AST 40 H ALT 28 Alkaline Phosphatase 80 Troponin I < 0.01 NT-Pro-B Natriuret Pep 391 H Total Protein 7.6 Albumin 4.4 Globulin 3.2 Albumin/Globulin Ratio 1.4 SARS-CoV-2 (PCR) Not detected Influenza A Untype (PCR) Not detected Influenza Type B (PCR) Not detected 04/12/21 15:00 WBC 10.7 RBC 4.81 Hgb 12.2 Hct 40.2 MCV 83.7 MCH 25.4 L MCHC 30.3 L RDW 16.3 Plt Count 416 MPV 7.7 Neut % (Auto) 79.5 Lymph % (Auto) 16.0 [place] % (Auto) 3.3 Eos % (Auto) 0.7 Baso % (Auto) 0.6 Neut # (Auto) 8.5 H Lymph # (Auto) 1.7 [place] # (Auto) 0.4 Eos # (Auto) 0.1 Baso # (Auto) 0.1 Sodium Potassium Chloride Carbon Dioxide Anion Gap BUN Creatinine Estimated Creat Clear Estimated GFR Est GFR ( Amer) Glucose Calcium Total Bilirubin AST ALT Alkaline Phosphatase Troponin I NT-Pro-B Natriuret Pep Total Protein Albumin Globulin
[2021-04-13 07:39] LABS: Basophils # 0.1 K/mm3 (0-0.2); Basophils % 0.7 % (0.1-2.0); Eosinophils # 0.3 K/mm3 (0.0-0.4); Eosinophils % 2.7 % (0.1-12.0); Hematocrit 36.1 % (37.0-47.0); Lymphocytes # 3.6 K/mm3 (0.7-4.5); Lymphocytes % 37.1 % (10-50); Mean Corpuscular HGB Conc 29.6 g/dL (31.8-35.4); Mean Corpuscular Hemoglobin 25.5 pg (27.0-31.2); Mean Corpuscular Volume 86.1 fl (81-99); Mean Platelet Volume 7.9 fl (7.4-10.4); Monocytes # 0.6 K/mm3 (0.1-1.0); Monocytes % 5.8 % (1.7-9.3); Neutrophils # 5.2 K/mm3 (1.8-7.8); Neutrophils % 53.7 % (37.0-80.0); Platelet Count 353 K/mm3 (142-424); Red Cell Distribution Width 16.1 % (11.5-17.5); White Blood Count 9.7 K/mm3 (4.8-10.8)
[2021-04-13 07:43] VITALS: BP 121/75; PULSE 106; RESP 19; TEMP 36.6; O2SAT 93
[2021-04-13 07:47] LABS: Anion Gap 11.6 mEq/L (5-15); Blood Urea Nitrogen 30 mg/dl (7-17); Calcium 8.8 mg/dl (8.4-10.2); Carbon Dioxide 34 mmol/L (22.0-30.0); Chloride 105 mmol/L (98-107); Creatinine Clearance Estimated 61 mL/min (50-200); Estimated Glomerular Filt Rate 49 ml/min (>60); GFR (African American) 59 ML/MIN (>60); Glucose 110 mg/dl (74-100); Potassium 4.6 mmoL/L (3.5-5.1); Sodium 146 mmol/L (136-145)
[2021-04-13 08:11] LABS: Hemoglobin 10.7 g/dL (12.2-16.2)
--- NOTE | 2021-04-13 10:32 | PC.NURSE ---
Pt d/cd this am and stated she wanted to take her am meds at home.
== END 2021-04-13 10:15 | disposition home or self-care (01) ==
LOC: ER 16:30 → 2ND 17:07
PROVIDERS: Admitting Provider Internal Medicine Adolescent Medicine; Emergency Provider Family Medicine; PCP Internal Medicine; Visit Provider Internal Medicine Adolescent Medicine
DX: E86.0 Dehydration (principal); E11.9 Type 2 diabetes mellitus without complications; I10 Essential (primary) hypertension; K21.9 Gastro-esophageal reflux disease without esophagitis; F17.210 Nicotine dependence, cigarettes, uncomplicated; J44.9 Chronic obstructive pulmonary disease, unspecified; R11.2 Nausea with vomiting, unspecified; Z20.822 Contact with and (suspected) exposure to COVID-19; R06.9 Unspecified abnormalities of breathing; Z79.84 Long term (current) use of oral hypoglycemic drugs
CPT/HCPCS: G0378; 70450; 80048; 80053; 83880; 84484; 85025; 93005; 96374; 99284; J2405; U0003

== ENCOUNTER → 2021-05-03 16:19 | Outpatient (CLI) | payer MEDICARE, OTHER, SELFPAY | PROVIDERS: Visit Provider Urology | DX: R32 Unspecified urinary incontinence (principal) | CPT/HCPCS: 87086; 87088; 87186 ==

== ENCOUNTER → 2021-07-03 14:53 | Outpatient (CLI) | payer MEDICARE, OTHER, SELFPAY ==
--- NOTE | 2021-07-03 14:57 | XR_ITS ---
PROCEDURE: XR CHEST 2V CLINICAL HISTORY: PERSISTENT COUGH,COPD, COMPARISON: CR Chest from 02/24/2019 CR XR CHEST 2V from 10/08/2020 CR XR CHEST PORTABLE from 12/17/2020 FINDINGS: Unremarkable cardiovascular structures. There is mild prominence of the left hilum which is not significantly changed and may be due to pulmonary vessels. Nodular density is present in the right lower lung zone medially overlying the 5th rib anteriorly measuring 2 cm. While this could be due to summation artifact from overlying vessels and ribs, an area of rounded pneumonia or developing pulmonary nodule is a consideration. Follow-up is suggested and would be best performed with CT. There is mild thoracic kyphosis IMPRESSION: Right lower lung zone nodule versus summation artifact or rounded area of pneumonia. Follow-up recommended. Dictated by: Kishore Winkler MD 07/03/2021 16:05 Kishore Winkler MD in [facility] 07/03/2021 16:05
== END ==
PROVIDERS: PCP Internal Medicine; Visit Provider Internal Medicine
DX: R05.3 Chronic cough (principal); J44.1 Chronic obstructive pulmonary disease with (acute) exacerbation
CPT/HCPCS: 71046

== ENCOUNTER → 2021-07-16 16:14 | Outpatient (CLI) | payer MEDICARE, OTHER, SELFPAY | PROVIDERS: Visit Provider Urology | DX: N39.0 Urinary tract infection, site not specified (principal); B96.1 Klebsiella pneumoniae [K. pneumoniae] as the cause of diseases classified elsewhere | CPT/HCPCS: 87086; 87088; 87186 ==

== ENCOUNTER → 2021-07-24 10:19 | Outpatient (CLI) | payer MEDICARE, OTHER, SELFPAY ==
--- NOTE | 2021-07-24 10:21 | CT_ITS ---
PROCEDURE: CT CHEST WO CON CLINICAL INDICATION: LUNG NODULE, PERSISTENT COUGH COMPARISON: CT LUNGSCREEN CT lung screening from 12/28/[address] ABDOMEN PELVIS WO CON from 12/01/2019 CR XR CHEST 2V from 07/03/2021 TECHNIQUE: Axial images obtained with sagittal and coronal reformats. All CT scans at the facility use one or more dose reduction, viz: automated exposure control, ma/kV adjustment per patient size (including targeted exams where dose is matched to indication, i.e. head), or iterative reconstruction technique. FINDINGS: HEART AND MEDIASTINAL STRUCTURES: There are few scattered small and mildly prominent mediastinal nodes not significantly changed. Pericardium is slightly thickened at approximately 3 mm. No mediastinal or hilar mass LUNGS AND PLEURAL SPACES: COPD changes with centrilobular emphysema previously there was a rounded opacity in the right pericardial region on the radiograph. This is not redemonstrated by chest CT and may have been due to an area of focal consolidation which has improved. Atelectatic changes versus scarring noted in the right middle lobe BONY STRUCTURES: Degenerative changes thoracic spine with mild thoracic kyphosis and mild dextroscoliosis. UPPER ABDOMEN: Unremarkable. ADDITIONAL FINDINGS: 4 mm hypodensity hepatic dome segment 7 which may represent a small cyst IMPRESSION: No acute finding. Previously noted opacity overlying the right heart border is not apparent on the CT scan and may have been due to an area of focal consolidation which has improved. This may have also represented summation artifact. COPD with centrilobular emphysema with atelectatic or fibrotic change in the right lung base. Dictated by: Kishore Winkler MD 07/25/2021 09:24 Kishore Winkler MD in [facility] 07/25/2021 09:24
== END ==
PROVIDERS: PCP Internal Medicine; Visit Provider Internal Medicine
DX: R91.1 Solitary pulmonary nodule (principal); R05.8 Other specified cough
CPT/HCPCS: 71250

== ENCOUNTER → 2021-08-17 12:41 | Outpatient (CLI) | payer MEDICARE, OTHER, SELFPAY ==
[2021-08-17 14:47] LABS: Hemoglobin A1C 6.7 % (4.0-6.0)
[2021-08-17 14:57] LABS: Alanine Aminotransferase 35 U/L (12-78); Albumin Level 4.4 g/dl (3.5-5.0); Albumin/Globulin Ratio 1.7 (1.1-1.8); Alkaline Phosphatase 56 U/L (38-126); Anion Gap 14.3 mEq/L (5-15); Aspartate Amino Transferase 60 U/L (14-36); Bilirubin,Total 0.2 mg/dl (0.2-1.3); Blood Urea Nitrogen 23 mg/dl (7-17); Calcium 9.8 mg/dl (8.4-10.2); Carbon Dioxide 31 mmol/L (22.0-30.0); Chloride 99 mmol/L (98-107); Chol/HDL Ratio 2.9 (1-3.5); Cholesterol 146 mg/dl (140-200); Estimated Glomerular Filt Rate 61 ml/min (>60); GFR (African American) 74 ML/MIN (>60); Globulin 2.6 g/dL (1.3-3.2); Glucose 144 mg/dl (74-100); HDL Cholesterol 51 mg/dl (40-60); Potassium 5.3 mmoL/L (3.5-5.1); Sodium 139 mmol/L (136-145); Triglycerides 236 mg/dl (30-150); VLDL Cholesterol 47 mg/dL (0-40)
[2021-08-17 15:08] LABS: Direct LDL Cholesterol 62.52 mg/dL (100-129)
[2021-08-17 15:13] LABS: 25-OH Vitamin D, Total 42.6 ng/mL (30-100)
[2021-08-17 15:28] LABS: Thyroid Stimulating Hormone 1.34 uIU/mL (0.465-4.68)
[2021-08-17 15:47] LABS: Vitamin B12 324 pg/mL (239-931)
== END ==
PROVIDERS: Visit Provider Internal Medicine
DX: I10 Essential (primary) hypertension (principal); E11.9 Type 2 diabetes mellitus without complications; E53.8 Deficiency of other specified B group vitamins; M15.0 Primary generalized (osteo)arthritis; E66.3 Overweight; Z68.32 Body mass index [BMI] 32.0-32.9, adult
CPT/HCPCS: 36415; 80053; 80061; 82306; 82607; 83036; 84443

== ENCOUNTER → 2021-09-24 17:44 | Outpatient (CLI) | payer MEDICARE, OTHER, SELFPAY ==
[2021-09-24 17:59] LABS: Basophils # 0.1 K/mm3 (0-0.2); Basophils % 1.3 % (0.1-2.0); Eosinophils # 0.2 K/mm3 (0.0-0.4); Hematocrit 38.8 % (37.0-47.0); Hemoglobin 11.5 g/dL (12.2-16.2); Lymphocytes # 2.5 K/mm3 (0.7-4.5); Lymphocytes % 29.3 % (10-50); Mean Corpuscular HGB Conc 29.6 g/dL (31.8-35.4); Mean Corpuscular Hemoglobin 25.1 pg (27.0-31.2); Mean Corpuscular Volume 84.9 fl (81-99); Mean Platelet Volume 8.5 fl (7.4-10.4); Monocytes # 0.6 K/mm3 (0.1-1.0); Monocytes % 6.4 % (1.7-9.3); Neutrophils # 5.3 K/mm3 (1.8-7.8); Neutrophils % 60.9 % (37.0-80.0); Platelet Count 485 K/mm3 (142-424); Red Blood Count 4.57 M/mm3 (4.20-5.40); Red Cell Distribution Width 16.6 % (11.5-17.5); White Blood Count 8.7 K/mm3 (4.8-10.8)
[2021-09-24 20:22] LABS: Anion Gap 14.1 mEq/L (5-15); Blood Urea Nitrogen 18 mg/dl (7-17); Calcium 9.4 mg/dl (8.4-10.2); Carbon Dioxide 33 mmol/L (22.0-30.0); Chloride 95 mmol/L (98-107); Estimated Glomerular Filt Rate 70 ml/min (>60); GFR (African American) 85 ML/MIN (>60); Glucose 117 mg/dl (74-100); Potassium 5.1 mmoL/L (3.5-5.1); Sodium 137 mmol/L (136-145)
== END ==
PROVIDERS: Visit Provider Internal Medicine
DX: I10 Essential (primary) hypertension (principal); Z79.899 Other long term (current) drug therapy
CPT/HCPCS: 80048; 85025

== ENCOUNTER → 2021-11-21 08:10 | Outpatient (CLI) | payer MEDICARE, OTHER, SELFPAY ==
--- NOTE | 2021-11-21 09:00 | PC.NURSE ---
PFT completed. Pt did give good effort, however, she was very sleepy and had difficulty staying awake during. Pt given Albuterol 0.083% via HHN, per written protocol, Pt tolerated tx well. 6 Minute walk test attempted but not completed due to unsteady gait. Pt states she suffers from sever back pain and can't walk well because of it. Pt walked approximately 50feet and slightly stumbled twice during, SPO2 86% at this time.
== END ==
PROVIDERS: PCP Internal Medicine; Visit Provider Internal Medicine Pulmonary Disease
DX: R06.09 Other forms of dyspnea (principal)
CPT/HCPCS: 94060; 94726; 94729

== ENCOUNTER → 2021-12-03 17:02 | Outpatient (CLI) | payer MEDICARE, OTHER, SELFPAY ==
[2021-12-03 19:48] LABS: Basophils # 0.2 K/mm3 (0-0.2); Basophils % 2.1 % (0.1-2.0); Eosinophils # 0.2 K/mm3 (0.0-0.4); Eosinophils % 2.5 % (0.1-12.0); Hematocrit 40.1 % (37.0-47.0); Hemoglobin 11.9 g/dL (12.2-16.2); Lymphocytes # 3.8 K/mm3 (0.7-4.5); Lymphocytes % 40.8 % (10-50); Mean Corpuscular HGB Conc 29.7 g/dL (31.8-35.4); Mean Corpuscular Hemoglobin 24.7 pg (27.0-31.2); Mean Corpuscular Volume 83.3 fl (81-99); Mean Platelet Volume 8.4 fl (7.4-10.4); Monocytes # 0.6 K/mm3 (0.1-1.0); Monocytes % 6.8 % (1.7-9.3); Neutrophils # 4.4 K/mm3 (1.8-7.8); Neutrophils % 47.8 % (37.0-80.0); Platelet Count 431 K/mm3 (142-424); Red Blood Count 4.81 M/mm3 (4.20-5.40); Red Cell Distribution Width 16.9 % (11.5-17.5); White Blood Count 9.2 K/mm3 (4.8-10.8)
[2021-12-03 20:42] LABS: Alanine Aminotransferase 23 U/L (12-78); Albumin Level 4.3 g/dl (3.5-5.0); Albumin/Globulin Ratio 1.6 (1.1-1.8); Alkaline Phosphatase 54 U/L (38-126); Anion Gap 12.8 mEq/L (5-15); Aspartate Amino Transferase 55 U/L (14-36); Bilirubin,Total 0.5 mg/dl (0.2-1.3); Blood Urea Nitrogen 18 mg/dl (7-17); Calcium 9.6 mg/dl (8.4-10.2); Carbon Dioxide 31 mmol/L (22.0-30.0); Chloride 100 mmol/L (98-107); Chol/HDL Ratio 2.9 (1-3.5); Cholesterol 128 mg/dl (140-200); Estimated Glomerular Filt Rate 61 ml/min (>60); GFR (African American) 74 ML/MIN (>60); Globulin 2.7 g/dL (1.3-3.2); Glucose 87 mg/dl (74-100); HDL Cholesterol 44 mg/dl (40-60); Potassium 5.8 mmoL/L (3.5-5.1); Sodium 138 mmol/L (136-145); Triglycerides 191 mg/dl (30-150); VLDL Cholesterol 38 mg/dL (0-40)
[2021-12-03 20:53] LABS: Direct LDL Cholesterol 47.08 mg/dL (100-129)
[2021-12-03 20:58] LABS: 25-OH Vitamin D, Total 47.6 ng/mL (30-100)
[2021-12-03 21:18] LABS: Hemoglobin A1C 6.8 % (4.0-6.0)
[2021-12-03 22:07] LABS: Iron 45 ug/dL (37-170)
[2021-12-03 22:16] LABS: Total Iron Binding Capacity 420 ug/dL (265-497)
== END ==
PROVIDERS: Visit Provider Internal Medicine
DX: I10 Essential (primary) hypertension (principal); E11.59 Type 2 diabetes mellitus with other circulatory complications; E78.5 Hyperlipidemia, unspecified; E55.9 Vitamin D deficiency, unspecified; E03.9 Hypothyroidism, unspecified; I73.9 Peripheral vascular disease, unspecified; J44.9 Chronic obstructive pulmonary disease, unspecified; M15.0 Primary generalized (osteo)arthritis; F50.89 Other specified eating disorder; Z79.84 Long term (current) use of oral hypoglycemic drugs
CPT/HCPCS: 80053; 80061; 82306; 83036; 83540; 83550; 84443; 85025

== ENCOUNTER → 2021-12-06 13:01 | Outpatient (CLI) | payer MEDICARE, OTHER, SELFPAY | PROVIDERS: Visit Provider Urology | DX: R32 Unspecified urinary incontinence (principal); B96.20 Unspecified Escherichia coli [E. coli] as the cause of diseases classified elsewhere | CPT/HCPCS: 87086; 87088; 87186 ==

== ENCOUNTER 2021-12-17 13:53 | Emergency (ER) | payer MEDICARE, OTHER, SELFPAY ==
[2021-12-17 13:53] VITALS: BP 116/54; PULSE 92; RESP 16; TEMP 37.2; O2SAT 94; BMI 30.4
[2021-12-17 14:36] VITALS: BP 138/93; PULSE 91; O2SAT 92
--- NOTE | 2021-12-17 15:01 | HMH.EDGENADL ---
ED Disposition Clinical Impression: Laceration of left hand Qualifiers: Encounter type: initial encounter Foreign body presence: without foreign body Qualified Code(s): S61.412A - Laceration without foreign body of left hand, initial encounter Disposition: Home, Self-Care Condition on Discharge: Good Instructions: DI for Laceration Repair Additional Instructions: Additional instructions for HAND LACERATION: Clean the wound daily with soap and water. Avoid submerging the wound. No swimming.DO NOT USE any antibiotic ointment such as Neosporin, Polysporin, or triple antibiotic. This will delay healing. See your primary care physician or return to the [facility]gent [facility] in 10 days for suture removal. The [facility]gent [facility] is open 9 AM to 9 PM 7 days a week. Return if any signs of infection including increasing pain, pus drainage, swelling, redness, red streaks, or fever. Tylenol as needed for pain Referrals: Salvador Zamorano [Primary Care Provider] - - Critical Care Critical Care Time: No Attestation: On 12/17/21, the high probability of a clinically significant, sudden or life threatening deterioration of the following system(s) required my full and direct attention, intervention and personal management. The time I documented below is in addition to time spent performing reported procedures but includes the following listed in this critical care notation. Medical Decision Making - Eric Inquiry Pt receiving controlled substance: No Vital Signs: 12/17/21 13:53 12/17/21 14:36 Temperature 98.9 F Temperature Source Oral Pulse Rate [Right Radial] 92 H 91 H Respiratory Rate 16 Blood Pressure [Right Arm] 116/54 L 138/93 H Blood Pressure Mean [Right Arm] 74 108 02 Sat by Pulse Oximetry 94 L 92 L Oxygen Delivery Method Room Air Orders (Tests/Meds): ED MEDICATIONS Discontinued Medications Generic Name Dose Route Start Last Admin Trade Name Freq PRN Reason Stop Dose Admin Tetanus/Diphtheria Toxoids 0.5 ml 12/17/21 14:25 12/17/21 14:41 Tetanus-Diphth Toxoid, Adult 0.5ml Syr IM 12/17/21 14:26 0.5 ml .ONCE ONE Administration General Adult HPI - General Chief complaint: Wound/Laceration Stated complaint: AO lt hand laceration Time Seen by Provider: 12/17/21 15:01 Mode of Arrival: Ambulatory Limitations: No Limitations Description of Symptoms (Recalled from ER Triage Doc. by RN): Pt was using scissors to cut something open and they slid and cut the top of her left thumb. - History of Present Illness HPI narrative: Accidentally cut her left thumb with scissors when trying to open a package. No numbness or weakness, but unable to get bleeding stopped. She is not on any anticoagulation. Tetanus immunization is not up-to-date. - Related Data Home Medications Medication Instructions Recorded Confirmed gabapentin 300 mg capsule 900 mg PO HS 10/06/17 12/05/21 alprazolam 1 mg tablet 1 mg PO TIDP PRN tab 08/24/18 12/05/21 omeprazole 40 mg capsule,delayed 40 mg PO BID cap 08/24/18 12/05/21 release Doxycycline Hyclate [Doxycycline 100 mg PO HS 02/07/19 12/05/21 100mg Capsule] Levalbuterol Tartrate 2 puff IH Q4HP PRN 02/07/19 12/05/21 [Levalbuterol Tartrate Hfa] Milnacipran HCl [Savella] 100 mg PO BID 02/07/19 12/05/21 lisinopriL [Lisinopril 2.5mg Tab] 2.5 mg PO DAILY 02/07/19 12/05/21 Rosuvastatin Calcium 20 mg PO HS 02/08/19 12/05/21 Amitriptyline HCl [Elavil 25mg 25 mg PO HS 02/26/19 12/05/21 tablet] Tizanidine HCl [Zanaflex 4mg 4 mg PO BID 05/18/20 12/05/21 tab] alendronate 70 mg tablet 70 mg PO WEEKLY tab 10/11/20 12/05/21 levocetirizine 5 mg tablet 5 mg PO DAILY tab 10/11/20 12/05/21 Diclofenac Sodium [Diclofenac 75mg 75 mg PO BID 11/22/20 12/05/21 Tab] Azelastine HCl [Azelastine Nasal 2 sprays NOSTRIL-B BID 12/18/20 12/05/21 Glenarm 30mL Bottle] Beclomethasone Dipropionate [Qnasl] 1 - 2 sprays NOSTRIL-B DAILY 12/18/20 12/05/21 Bethanechol
--- NOTE | 2021-12-17 15:03 | PC.NURSE ---
ED MD at
--- NOTE | 2021-12-17 15:10 | PC.NURSE ---
VAIBHAV GOMEZ at bedside to repair lac at this time
[2021-12-17 15:34] VITALS: BP 119/66; PULSE 85; O2SAT 89
[2021-12-17 15:37] VITALS: BP 119/66; PULSE 80; RESP 18; TEMP 37.2; O2SAT 90
== END 2021-12-17 15:37 | disposition home or self-care (01) ==
LOC: UTC 13:57 → ER 14:02
PROVIDERS: Emergency Provider Emergency Medicine; PCP Internal Medicine
DX: S61.412A Laceration without foreign body of left hand, initial encounter (principal); W26.8XXA Contact with other sharp object(s), not elsewhere classified, initial encounter; Y92.019 Unspecified place in single-family (private) house as the place of occurrence of the external cause; Z23 Encounter for immunization; E11.9 Type 2 diabetes mellitus without complications; E78.5 Hyperlipidemia, unspecified; K21.9 Gastro-esophageal reflux disease without esophagitis; J44.9 Chronic obstructive pulmonary disease, unspecified; E03.9 Hypothyroidism, unspecified; F41.8 Other specified anxiety disorders; Z79.899 Other long term (current) drug therapy; F17.210 Nicotine dependence, cigarettes, uncomplicated
CPT/HCPCS: 12042; 90471; 90714; 99282

== ENCOUNTER → 2021-12-23 09:59 | Outpatient (POV) | payer MEDICARE, OTHER, SELFPAY ==
[2021-12-23 10:12] VITALS: BP 113/67; PULSE 108; RESP 18; TEMP 36.7; O2SAT 92; BMI 30.4
--- NOTE | 2021-12-23 11:58 | HMH.PAINSOAP ---
[facility] Pain Management SOAP Note Subjective:: Patient is a pleasant 76-year-old female who presents today for follow-up. We have not seen this patient since March of last year. Patient is currently being treated for degenerative disc disease of lumbar spine with lumbar radiculopathy symptoms. Patient did have a spinal cord stimulator that was explanted. She states that it was not helping her. She has tried injective therapy in the past with minimal relief. We have tried to refer the patient to neurosurgery for further evaluation. She states that she has not seen neurosurgery. Patient is not interested in any oral opioid medications and patches. She is also interested in any pain pump. Today, she is complaining of worsening low back pain and bilateral hip pain, worse on the right. Denies any recent falls or traumas. Denies any loss of bowel and bladder functions. She has trouble getting up from a chair. She cannot tolerate any prolonged activities such as sitting, standing, and walking. She cannot get comfortable when sitting. She has tried and failed other conservative therapies in the past such as physical therapy and at home exercises for greater than 6 weeks. Rates pain today as 8/10. [facility] number [phone] with an active morphine equivalent of 0. Patient is also taking gabapentin 300 mg 3 times a day and alprazolam 1 mg 3 times a day prescribed by Dr. Zamorano. Review of Systems: General: No recent weight changes, no fever, no sleep disturbances Respiratory: No cough, no shortness of air, no recurring pulmonary infections Cardiovascular/peripheral vascular: No chest pain, no palpitations, no edema, no shortness of breath Gastrointestinal: No new onset incontinence, normal bowel movements reported Genitourinary: No new onset incontinence Musculoskeletal: Low back pain, bilateral hip Psychiatric: [Normal mood/affect] Neurological: [Denies weakness in extremities], [denies balance issues] Objective:: Physical Exam: General: Alert and oriented x3, no acute distress, pleasant and cooperative, [on room air] Lungs: Respirations even and unlabored, symmetrical chest expansion Eyes: PERRL Musculoskeletal: Flexion and extension of lumbar [spine] somewhat guarded secondary to pain, [antalgic gait noted]; bilateral SI are positive for ELODIA, Sylvia's, [place]'s, Gaenslen's, compression, and distraction. Neurological: Speech clear, no gross sensory deficit Assessment:: Sacroiliitis Degenerative disc disease of lumbar spine with lumbar radiculopathy symptoms Lumbar spondylosis Plan:: Patient presents today with worsening low back pain and bilateral hip pain. Patient had a spinal cord stimulator in the past that was explanted in March 2021. Patient has been managing her pain with Tylenol. She states that this medication is not helping her anymore. She she cannot tolerate any full activity is such as sitting, standing, and walking. Bilateral SI are positive for ELODIA, Sylvia's, [place]'s, Gaenslen's, compression, and distraction. Risks and benefits of the procedure have been explained to the patient. Patient would like to proceed with the procedure. For pain, I will start the patient on meloxicam 15 mg daily. Follow-up after the injection Patient has been instructed to contact the clinic with any concerns before the next appointment. Dr. Hinojosa has reviewed this note and agrees with this plan of care. This note was dictated using voice recognition software and make contain errors or omissions. [facility] History Medical History: Reports:: Anxiety, Asthma, Chronic Obstructive Pulmonary Disease (COPD), Deep Vein Thrombosis, Depression, Diabetes Mellitus Type 2, Gastroesophageal Reflux Disease(GERD), Hyperlipidemia, Hypertension, Kidney Stones, Migraine Denies:: Cancer, Diabetes Mellitus Type 1, Internal Pacemaker, MRSA, Seizures *Have you ever received a pneumonia vaccine?: Yes *Have you received a flu vaccine this season?: Yes Other Medical Histor
== END ==
PROVIDERS: Visit Provider Student in an Organized Health Care Education/Training Program
DX: M46.1 Sacroiliitis, not elsewhere classified (principal); M51.16 Intervertebral disc disorders with radiculopathy, lumbar region; M47.896 Other spondylosis, lumbar region
CPT/HCPCS: 99212; G0463

== ENCOUNTER 2021-12-27 08:11 | Day surgery (SDC) | payer MEDICARE, OTHER, SELFPAY ==
[2021-12-27 08:24] VITALS: BP 104/44; PULSE 101; RESP 20; TEMP 36.6; O2SAT 95; BMI 30.4
[2021-12-27 09:07] VITALS: BP 149/84; PULSE 93; RESP 20; O2SAT 95
[2021-12-27 09:08] VITALS: BP 149/84; PULSE 90; RESP 20; O2SAT 98
--- NOTE | 2021-12-27 09:12 | P.PCN_ITS ---
- Procedure Date: 12/27/21 Time: 09:12 Anesthesiologist:: Ian Zambrano CRNA Complications:: None Pre-procedure Diagnosis:: Bilateral sacroiliitis Post-procedure Diagnosis:: Same Indications for Procedure:: This patient is a very pleasant 76-year-old white female that has been seeing us for quite some time. She is responded very well in the past to SI joint injections. She presents today for bilateral SI joint injection. Procedure Details:: Procedure: Bilateral sacroiliac joint injections under fluoroscopy Informed consent was obtained and the risks and benefits of the procedure were explained to the patient.~ The patient was taken to the procedure room and noninvasive monitors were placed including a noninvasive blood pressure cuff and pulse oximeter.~ The patient was placed prone on the procedure table. Both hips were cleansed using Betadine as a cleansing solution. C-arm fluoroscopy was used to view the right sacroiliac joint.~ The skin and subcutaneous tissues were anesthetized using lidocaine 1.5% and a 25-gauge needle.~ After this, a 22-gauge spinal needle was inserted under fluoroscopic guidance into the inferior aspect of the right sacroiliac joint.~ Omnipaque dye was injected and good spread was seen throughout the joint.~ After this, approximately 5 mL of bupivacaine, 0.25% and Depo-Medrol, 40 mg was incrementally injected into the right sacroiliac joint. We then moved to the left sacroiliac joint.~ The skin and subcutaneous tissues were anesthetized using lidocaine 1.5% and a 25-gauge needle.~ After this, a 22- gauge spinal needle was inserted under fluoroscopic guidance into the inferior aspect of the left sacroiliac joint.~ Omnipaque dye was injected and good spread was seen throughout the joint. After this, approximately 5 mL of bupivacaine, 0.25% and Depo-Medrol, 40 mg was incrementally injected into the left sacroiliac joint.~ The patient tolerated the procedure well with no complications. The patient was observed in the Pain Clinic and then was discharged home neurologically intact. Plan and Disposition:: Patient was discharged home following procedure with minimal pain.
[2021-12-27 09:18] VITALS: BP 103/61; PULSE 71; RESP 18; O2SAT 90
== END 2021-12-27 09:18 | disposition home or self-care (01) ==
LOC: SC.PAINP 08:13
PROVIDERS: PCP Internal Medicine; Visit Provider Nurse Anesthetist, Certified Registered
DX: M46.1 Sacroiliitis, not elsewhere classified (principal); M51.16 Intervertebral disc disorders with radiculopathy, lumbar region; M47.896 Other spondylosis, lumbar region; J44.9 Chronic obstructive pulmonary disease, unspecified; I73.9 Peripheral vascular disease, unspecified; E11.9 Type 2 diabetes mellitus without complications; K21.9 Gastro-esophageal reflux disease without esophagitis; E78.5 Hyperlipidemia, unspecified; I10 Essential (primary) hypertension; G43.909 Migraine, unspecified, not intractable, without status migrainosus; F41.9 Anxiety disorder, unspecified; F32.A Depression, unspecified
CPT/HCPCS: 27096; G0260; J1030

== ENCOUNTER → 2022-01-08 13:15 | Outpatient (CLI) | payer MEDICARE, OTHER, SELFPAY ==
[2022-01-08 13:21] LABS: MANUAL DIFFERENTIAL MANUAL DIFFERENTIAL (MANUAL DIFF)
[2022-01-08 13:53] LABS: Basophils # 0.1 K/mm3 (0-0.2); Eosinophils # 0.2 K/mm3 (0.0-0.4); Eosinophils % 2.1 % (0.1-12.0); Hematocrit 40.2 % (37.0-47.0); Hemoglobin 11.8 g/dL (12.2-16.2); Lymphocytes # 4.5 K/mm3 (0.7-4.5); Lymphocytes % 43.1 % (10-50); Mean Corpuscular HGB Conc 29.4 g/dL (31.8-35.4); Mean Corpuscular Hemoglobin 24.8 pg (27.0-31.2); Mean Corpuscular Volume 84.3 fl (81-99); Monocytes # 0.8 K/mm3 (0.1-1.0); Monocytes % 8.1 % (1.7-9.3); Neutrophils # 4.7 K/mm3 (1.8-7.8); Neutrophils % 45.6 % (37.0-80.0); Platelet Count 426 K/mm3 (142-424); Red Blood Count 4.77 M/mm3 (4.20-5.40); White Blood Count 10.4 K/mm3 (4.8-10.8)
[2022-01-08 14:24] LABS: Chloride 103 mmol/L (98-107); Sodium 141 mmol/L (136-145)
[2022-01-08 14:25] LABS: Potassium 5.4 mmoL/L (3.5-5.1)
[2022-01-08 14:27] LABS: Blood Urea Nitrogen 17 mg/dl (7-17); Estimated Glomerular Filt Rate 61 ml/min (>60); GFR (African American) 74 ML/MIN (>60)
[2022-01-08 14:28] LABS: Anion Gap 13.4 mEq/L (5-15); Calcium 9.6 mg/dl (8.4-10.2); Carbon Dioxide 30 mmol/L (22.0-30.0); Glucose 130 mg/dl (74-100)
[2022-01-08 20:06] LABS: Anisocytosis 1+; Eosinophils % 3 % (0-3); Lymphocytes % 42 % (10-50); Monocytes % 3 % (2-9); Neutrophils % 51 % (42-76); Platelet Estimate Normal; Total Cells Counted 100
[2022-01-08 20:07] LABS: Hypochromasia 2+; Rouleaux 1+
== END ==
PROVIDERS: Visit Provider Urology
DX: R32 Unspecified urinary incontinence (principal); Z01.812 Encounter for preprocedural laboratory examination; Z11.52 Encounter for screening for COVID-19
CPT/HCPCS: 36415; 80048; 85007; 85014; 85018; 85048; 85049; C9803; U0003; U0005

== ENCOUNTER 2022-01-10 08:02 | Day surgery (SDC) | payer MEDICARE, OTHER, SELFPAY ==
[2022-01-08 13:18] VITALS: BMI 30.4
[2022-01-10] VITALS (16 sets, daily range): BP systolic 91–130; BP diastolic 51–75; PULSE 81–105; RESP 16–22; TEMP 36.2–43; O2SAT 90–99
[2022-01-10 09:12] LABS: POC Glucose,Bedside 123 (70-110)
--- NOTE | 2022-01-10 10:29 | P.PN_ITS ---
[facility] Anesthesia Checklist - Patient Identification Patient Identification: Arm Band - Structural Data Admitted From: Home Planned Operative Procedure/s: Transobturator Taping Consent for Planned Operative Procedure(s) Verified: Yes Verified Documents: Surgical Consent, History and Physical - NPO Status Verified Time NPO: 00:00 - Additional verifications Anesthesia Reactions: No Hx Blood Transfusions: No Blood Transfusion Reaction: No - Airway Assessment C-Spine Mobility Assessed: Yes (mp2) TMJ Mobility Assessed: Yes Dentition: Good Dentition - Neurological Assessment Level of Consciousness: Awake, Alert - Anesthesia Plan Anesthesia Risk discussed: Yes Anesthesia Plan: Verified ASA Class: III Anesthesia Type: General [facility] History I have reviewed the patient's past medical history: Yes Medical History: Reports:: Anxiety, Asthma, Chronic Obstructive Pulmonary Disease (COPD), Deep Vein Thrombosis, Depression, Diabetes Mellitus Type 2, Gastroesophageal Reflux Disease(GERD), Hyperlipidemia, Hypertension, Kidney Stones, Migraine Denies:: Cancer, Diabetes Mellitus Type 1, Internal Pacemaker, MRSA, Seizures *Have you ever received a pneumonia vaccine?: Yes *Have you received a flu vaccine this season?: Yes Other Medical History: Reports: Anemia, Arthritis, Cataracts, Hypothyroidism, Sinus Problems. Denies: Blood Transfusion Reaction Anesthesia experience/problems:: nac Laterality Cases: Bilateral: Cataract, Tonsillectomy Other Surgeries: Yes: Appendectomy, Cardiac Catheterization, Cholecystectomy, Colonoscopy, Colon Resection, , Hysterectomy-Total, Other (bowel surgery). No: Pacemaker Amputation: No Fractures: No - *Social History Last grade of school completed: High school graduate Smoking Status: Current every day smoker Tobacco Type: cigarettes # Packs/Day (cigarettes): 1 Alcohol Intake: never Alcohol Intake Frequency:: other Substance Use Type: denies use *Occupational Status:: disabled Housing: house Household Members: children *Travel in the last 8 weeks: None - Psychiatric History Pschychiatric History:: Reports:: Anxiety, Depression Family Hx:: Cancer, Coronary Artery Disease, Heart Attack, Stroke
--- NOTE | 2022-01-10 11:07 | P.PN_ITS ---
[facility] Anesthesia Record Part I Intake, IV Amount: 1,500 Estimated blood loss (mL): 10 Urine output (mL): 0 Blood Pressure: 115/68 SaO2: 90 Pulse Rate: 100 Respiratory Rate: 16 Temperature: 97.2 F Patient is:: Drowsy, Stable Stable to PACU at:: 11:00
--- NOTE | 2022-01-10 11:11 | P.OP_ITS ---
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 She is currently on Myrbetriq with good control of the urge component she presents today for surgical management of her stress incontinence which is believed to be due to intrinsic sphincter deficiency. Previous urodynamics have shown consistent findings with intrinsic sphincter deficiency. Operative findings:: Cystoscopy reveals a normal bladder mucosa, ureteral orifices in the normal anatomic position. Vaginal tissues quite thin due to the atrophy. Operative note:: Patient taken to the operating room after informed consent was obtained. She was placed on the operating table in the supine position and general anesthesia administered. Preoperative antibiotics administered and sequential compression devices placed. She was then placed into the dorsal lithotomy position and prepped and draped in the standard surgical fashion. Incisions were marked at the insertion of the abductor longus on the plane equal with the clitoris. Cystoscopy was performed showing normal bladder mucosa no evidence of fistula. Ureteral orifices in the normal anatomic position. Cystoscope removed and Sagastume catheter placed. Bladder was drained and the Sagastume clamp was placed onto the abdomen. Vaginal speculum was placed and a incision was made in the anterior vaginal wall 1 cm distal to the meatus. Incision was also made in the thigh incisions. Metzenbaum scissors were used to dissect the periurethral space. Finger dissection was then used to palpate the underside of the ischiopubic rami bilaterally. Our Obtryx Halo TOT kit was then opened and a trocar was placed into the right thigh incision and around the ischial pubic ramus and guided into the vaginal incision on my finger. The tape was placed onto the trocar and brought back to the operative thigh incision. Trocar was then passed into the left thigh incision and around the ischial pubic ramus and to the left side of the vaginal incision guided by my finger. Sagastume cath has been removed and cystoscopy was performed showing no evidence of injury to the bladder or urethra. Scope removed and Sagastume catheter replaced and the bladder drained and Sagastume clamped and placed onto the abdomen. The other end of the transobturator tape was placed onto the trocar and brought back out for the left thigh incision. The tape was snugged up to the proximal urethra and it was noted to be flat against the urethra. The excess tape was cut off at the thighs. The vaginal incision was closed with a running 2-0 chromic. Thigh incisions were closed with Dermabond. Vaginal packing placed. Sagastume catheter was left indwelling to the recovery room. Patient tolerated procedure well. Condition: stable Disposition: same day Specimens:: None Complications:: None
[2022-01-10 11:18] LABS: POC Glucose,Bedside 141 (70-110)
--- NOTE | 2022-01-10 14:57 | SUR.PHASEII ---
Irrigated bladder with 200ml of sterile water, removed lam and assisted patient to BR with hat on toilet. Patient urinated 100ml yellow urine. Has packing in vagina. Patient dressed and VSS
--- NOTE | 2022-01-13 10:58 | HMH.ANESII ---
[facility] Anesthesia Record Part II Discharge Time: 12:10 Destination: Surgical Day Care (OP Surgery) PACU nurse assessment reviewed?: Yes Patient Condition:: Good Anesthesia Complications:: None Swallowing reflex intact?: Yes Cyanosis?: No Blood Pressure: 116/65 Pulse Rate: 84 Temperature: 97.8 F Mental Status: Alert & Oriented Pain level:: 3 Nausea and/or vomitting:: None Intake, IV Amount: 0
[2022-01-13 10:59] VITALS: BP 116/65; PULSE 84; TEMP 36.6
== END 2022-01-10 13:14 | disposition home or self-care (01) ==
LOC: OR 08:03
PROVIDERS: PCP Internal Medicine; Visit Provider Urology
DX: N36.42 Intrinsic sphincter deficiency (ISD) (principal); N39.3 Stress incontinence (female) (male); F41.9 Anxiety disorder, unspecified; J45.909 Unspecified asthma, uncomplicated; I73.9 Peripheral vascular disease, unspecified; J44.9 Chronic obstructive pulmonary disease, unspecified; F32.A Depression, unspecified; E11.9 Type 2 diabetes mellitus without complications; K21.9 Gastro-esophageal reflux disease without esophagitis; E78.5 Hyperlipidemia, unspecified; I10 Essential (primary) hypertension; G43.909 Migraine, unspecified, not intractable, without status migrainosus
CPT/HCPCS: 51992; 82962; 94640; 96374; C1771; J2405

== ENCOUNTER → 2022-01-27 11:46 | Outpatient (POV) | payer MEDICARE, OTHER, SELFPAY ==
[2022-01-27 12:19] VITALS: BP 102/60; PULSE 114; RESP 18; TEMP 36.7; O2SAT 90; BMI 30.4
--- NOTE | 2022-01-27 15:52 | HMH.PAINSOAP ---
[facility] Pain Management SOAP Note Subjective:: Patient is a pleasant 76-year-old female who presents today for follow-up after bilateral SI injection on December 27, 2021. After the procedure, patient reports 70 to 80% relief that lasted for about 2 weeks. Denies any issues after this procedure. She was able to increase her activity since her procedure. Today, patient is also complaining of mid back pain. Denies any recent falls or traumas. She does have a severe kyphosis that could be contributing to this mid back pain. She has not had any imaging in this area. Patient is also complaining of pain in bilateral knees. She was told previously that she may need knee replacements. She has not seen any orthopedics in a long time. She rates her pain today as 8 out of 10. Review of Systems: General: No recent weight changes, no fever, no sleep disturbances Respiratory: No cough, no shortness of air, no recurring pulmonary infections Cardiovascular/peripheral vascular: No chest pain, no palpitations, no edema, no shortness of breath Gastrointestinal: No new onset incontinence, normal bowel movements reported Genitourinary: No new onset incontinence Musculoskeletal: Mid back pain, bilateral SI pain, bilateral knee pain Psychiatric: [Normal mood/affect] Neurological: [Denies weakness in extremities], [denies balance issues] Objective:: Physical Exam: General: Alert and oriented x3, no acute distress, pleasant and cooperative Lungs: Respirations even and unlabored, symmetrical chest expansion Eyes: PERRL Musculoskeletal: Flexion and extension of thoracic [spine] somewhat guarded secondary to pain, [antalgic gait noted]; bilateral SI are positive for ELODIA, Sylvia's, [place]'s, Gaenslen's, compression, and distraction. Neurological: Speech clear, no gross sensory deficit Assessment:: Mid back pain, sacroiliitis, bilateral knee pain Plan:: Patient had significant relief after the bilateral SI injection. Patient has tried and failed conservative therapy such as oral medication, physical therapy, and at home exercises for greater than 6 weeks. We will schedule the patient for a bilateral SI injection. Risks and benefits of the procedure have been explained to the patient. Patient would like to proceed with the procedure. Patient is also been complaining of mid back pain. Patient does have some kyphosis around her mid back that could be contributing to his pain. We will order an updated thoracic MRI. We will refer the patient to orthopedics for further evaluation of bilateral knee pain. Patient has been instructed to contact the clinic with any concerns before the next appointment. Dr. Hinojosa has reviewed this note and agrees with this plan of care. This note was dictated using voice recognition software and make contain errors or omissions. [facility] History Medical History: Reports:: Anxiety, Asthma, Chronic Obstructive Pulmonary Disease (COPD), Deep Vein Thrombosis, Depression, Diabetes Mellitus Type 2, Gastroesophageal Reflux Disease(GERD), Hyperlipidemia, Hypertension, Kidney Stones, Migraine Denies:: Cancer, Diabetes Mellitus Type 1, Internal Pacemaker, MRSA, Seizures *Have you ever received a pneumonia vaccine?: Yes *Have you received a flu vaccine this season?: Yes Other Medical History: Reports: Anemia, Arthritis, Cataracts, Hypothyroidism, Sinus Problems. Denies: Blood Transfusion Reaction Laterality Cases: Bilateral: Tonsillectomy Other Surgeries: Yes: No Previous Surgery, Appendectomy, Cardiac Catheterization, Cholecystectomy, Colonoscopy, Colon Resection, , Hysterectomy-Total, Other (bowel surgery). No: Pacemaker Amputation: No Fractures: No - *Social History Smoking Status: Current every day smoker Tobacco Type: cigarettes # Packs/Day (cigarettes): 1 Alcohol Intake: never Alcohol Intake Frequency:: other Substance Use Type: denies use *Occupational Status:: retired Housing: house Household Members: children *Travel in the [facility]
== END ==
PROVIDERS: Visit Provider Student in an Organized Health Care Education/Training Program
DX: M54.6 Pain in thoracic spine (principal); M46.1 Sacroiliitis, not elsewhere classified; M25.561 Pain in right knee; M25.562 Pain in left knee
CPT/HCPCS: 99212; G0463

== ENCOUNTER → 2022-01-29 09:41 | Outpatient (CLI) | payer MEDICARE, OTHER, SELFPAY ==
--- NOTE | 2022-01-29 09:47 | MR_ITS ---
FINAL REPORT CLINICAL HISTORY: THORACIC BACK PAIN, no injury, pain mid to lower FINDINGS: Multiplanar MR imaging of the thoracic spine was performed without contrast. There is S shaped curvature of the thoracic spine. On the sagittal T2-weighted images, disc degeneration is seen at multiple levels. There is no evidence of fracture. The vertebral alignment is normal. The thoracic spinal cord has an unremarkable appearance without evidence of mass, edema or syrinx. There are several hemangiomas. Multiple Schmorl's nodes are seen. There is no evidence of significant canal stenosis or cord compression. On the axial images, mild disc bulges and small osteophytes are seen at multiple levels. No focal soft disc protrusion is identified. There is no evidence of significant canal stenosis or cord compression. No paraspinous soft tissue abnormality is identified. IMPRESSION: Multilevel mild degenerative disc disease and spondylosis. No focal soft disc protrusion or significant central canal stenosis. Reviewed, Interpreted and Dictated by Ghulam Ramirez III, MD Transcribed by Susanne Cabrera Authenticated by Ghulam Ramirez III, MD on 01/29/2022 11:19:13 AM [facility]
== END ==
PROVIDERS: PCP Internal Medicine; Visit Provider Student in an Organized Health Care Education/Training Program
DX: M54.6 Pain in thoracic spine (principal)
CPT/HCPCS: 72146

== ENCOUNTER 2022-01-31 10:54 | Day surgery (SDC) | payer MEDICARE, OTHER, SELFPAY ==
[2022-01-31 11:08] VITALS: BP 108/59; PULSE 96; RESP 18; TEMP 36.9; O2SAT 90; BMI 30.4
[2022-01-31 11:12] VITALS: BP 101/55; PULSE 97; RESP 20; O2SAT 97
--- NOTE | 2022-01-31 11:15 | P.PCN_ITS ---
- Procedure Date: 01/31/22 Time: 11:15 Anesthesiologist:: Ian Zambrano CRNA Complications:: None Pre-procedure Diagnosis:: Bilateral sacroiliitis. Post-procedure Diagnosis:: Same Indications for Procedure:: This patient is a pleasant 76-year-old female that returns our clinic for bilateral SI joint injections. She has had these in the past with significant improvement. She describes her low back pain as constant, dull, aching. She rates the pain 7/10. Procedure Details:: Procedure: Bilateral sacroiliac joint injections under fluoroscopy Informed consent was obtained and the risks and benefits of the procedure were explained to the patient.~ The patient was taken to the procedure room and noninvasive monitors were placed including a noninvasive blood pressure cuff and pulse oximeter.~ The patient was placed prone on the procedure table. Both hips were cleansed using Betadine as a cleansing solution. C-arm fluoroscopy was used to view the right sacroiliac joint.~ The skin and subcutaneous tissues were anesthetized using lidocaine 1.5% and a 25-gauge needle.~ After this, a 22-gauge spinal needle was inserted under fluoroscopic guidance into the inferior aspect of the right sacroiliac joint.~ Omnipaque dye was injected and good spread was seen throughout the joint.~ After this, approximately 5 mL of bupivacaine, 0.25% and Depo-Medrol, 40 mg was incrementally injected into the right sacroiliac joint. We then moved to the left sacroiliac joint.~ The skin and subcutaneous tissues were anesthetized using lidocaine 1.5% and a 25-gauge needle.~ After this, a 22- gauge spinal needle was inserted under fluoroscopic guidance into the inferior aspect of the left sacroiliac joint.~ Omnipaque dye was injected and good spread was seen throughout the joint. After this, approximately 5 mL of bupivacaine, 0.25% and Depo-Medrol, 40 mg was incrementally injected into the left sacroiliac joint.~ The patient tolerated the procedure well with no complications. The patient was observed in the Pain Clinic and then was discharged home neurologically intact. Plan and Disposition:: Patient was discharged without incident.
[2022-01-31 11:20] VITALS: BP 109/60; PULSE 86; RESP 20; O2SAT 96
== END 2022-01-31 11:25 | disposition home or self-care (01) ==
LOC: SC.PAINP 10:56
PROVIDERS: PCP Internal Medicine; Visit Provider Nurse Anesthetist, Certified Registered
DX: M46.1 Sacroiliitis, not elsewhere classified (principal); F41.9 Anxiety disorder, unspecified; J45.909 Unspecified asthma, uncomplicated; J44.9 Chronic obstructive pulmonary disease, unspecified; I73.9 Peripheral vascular disease, unspecified; F32.A Depression, unspecified; E11.9 Type 2 diabetes mellitus without complications; K21.9 Gastro-esophageal reflux disease without esophagitis; E78.5 Hyperlipidemia, unspecified; I10 Essential (primary) hypertension; G43.909 Migraine, unspecified, not intractable, without status migrainosus; Z80.9 Family history of malignant neoplasm, unspecified
CPT/HCPCS: 27096; G0260; J1040

== ENCOUNTER 2022-02-18 14:04 | Emergency (ER) | payer MEDICARE, OTHER, SELFPAY ==
[2022-02-18 14:04] VITALS: BP 137/72; PULSE 108; RESP 20; TEMP 36.8; O2SAT 93; BMI 29.9
--- NOTE | 2022-02-18 14:21 | PC.NURSE ---
VAIBHAV GOMEZ at
[2022-02-18 14:22] VITALS: BMI 29.9
--- NOTE | 2022-02-18 14:23 | CT_ITS ---
FINAL REPORT TECHNIQUE: Axial images through the abdomen and pelvis were performed without contrast. This study was performed with techniques to keep radiation doses as low as reasonably achievable, (ALARA). Individualized dose reduction techniques using automated exposure control or adjustment of mA and/or kV according to the patient's size were employed. CLINICAL HISTORY: rt flank pain, h/o stones FINDINGS: ABDOMEN: There is mild scarring in the lung bases. The heart size is normal. Limited images of the liver are unremarkable. The patient is status post cholecystectomy. The spleen is normal. No adrenal mass is identified. The aorta is normal in caliber. There is no significant free fluid or adenopathy. There is a less than 3 mm nonobstructing right renal stone. Small calcification is seen in the mid left kidney. There is moderate right hydronephrosis and hydroureter secondary to a 3 mm stone just proximal to the right UVJ. PELVIS: The appendix is not identified. The patient is status post hysterectomy. The urinary bladder is unremarkable. There is no significant free fluid or adenopathy. IMPRESSION: Moderate right hydronephrosis and hydroureter secondary to an obstructing right UVJ stone. Reviewed, Interpreted and Dictated by Ghulam Ramirez III, MD Transcribed by Lynn Knight Authenticated and [facility]
--- NOTE | 2022-02-18 14:27 | HMH.EDGENADL ---
ED Disposition Clinical Impression: Right ureteral stone Disposition: Home, Self-Care Condition on Discharge: Good Instructions: DI for Kidney Stones Additional Instructions: follow up urorlogy 1-2 days, return for worse Prescriptions: Cefdinir [Omnicef 300mg Capsule] 300 mg PO BID #20 cap Transmission Status: Pending to Clinic Pharm[facility] Oxycodone HCl/Acetaminophen [Percocet 5/325mg tablet] 1 tab PO Q6H PRN #12 tab PRN Reason: Moderate Pain Transmission Status: Sent to Clinic [facility] Ondansetron [Zofran 4mg ODT] 4 mg PO TIDP PRN #12 tab PRN Reason: Nausea Transmission Status: Pending to Clinic [facility] Referrals: Sb Valles MD [Staff Physician] - - Critical Care Critical Care Time: No Attestation: On 02/18/22, the high probability of a clinically significant, sudden or life threatening deterioration of the following system(s) required my full and direct attention, intervention and personal management. The time I documented below is in addition to time spent performing reported procedures but includes the following listed in this critical care notation. Medical Decision Making - Medical Records Medical records reviewed: Yes: I reviewed the patient's medical records. - Eric Inquiry Pt receiving controlled substance: No Vital Signs: 02/18/22 14:04 02/18/22 14:30 02/18/22 15:00 Temperature 98.3 F Temperature Source Oral Pulse Rate 107 H 112 H Pulse Rate [Left Radial] 108 H Respiratory Rate 20 Blood Pressure 145/76 H 142/78 H Blood Pressure [Left Arm] 137/72 Blood Pressure Mean 111 99 Blood Pressure Mean [Left Arm] 93 Blood Pressure Source [Left Arm] Automatic Cuff Blood Pressure Position [Left Arm] Sitting 02 Sat by Pulse Oximetry 93 L 94 L 94 L Oxygen Delivery Method Room Air Orders (Tests/Meds): ED MEDICATIONS Generic Name Dose Route Start Last Admin Trade Name Freq PRN Reason Stop Dose Admin Sodium Chloride 10 ml 02/18/22 14:22 Sodium Chloride 0.9% 10ml Flush Syringe IV 03/20/22 14:21 NEEDED PRN Maintain IV Site Discontinued Medications Generic Name Dose Route Start Last Admin Trade Name Freq PRN Reason Stop Dose Admin Ketorolac Tromethamine 15 mg 02/18/22 14:22 02/18/22 14:23 Ketorolac 30mg/Ml Vial IV 02/18/22 14:23 15 mg ONCE ONE Administration ORDERS Category Date Time Status UA [Urinalysis and Microscopic] Stat Lab 02/18/22 14:28 Ordered - Reevaluation(s) Time: 15:27 (reveal, pain resolved, appears well, ok with plan to f/u urology this week) General Adult HPI - General Stated complaint: possible kidney stone, abd pain Time Seen by Provider: 02/18/22 14:27 - History of Present Illness HPI narrative: rt flank pain, h/o stones, since this am Onset (ago): hour(s) Radiation: non-radiation Severity: moderate Consistency: constant Exacerbating factors: none Associated symptoms: denies other symptoms - Related Data Home Medications Medication Instructions Recorded Confirmed gabapentin 300 mg capsule 900 mg PO HS 10/06/17 02/07/22 alprazolam 1 mg tablet 1 mg PO TIDP PRN tab 08/24/18 02/07/22 omeprazole 40 mg capsule,delayed 40 mg PO BID cap 08/24/18 02/07/22 release Doxycycline Hyclate [Doxycycline 100 mg PO HS 02/07/19 02/07/22 100mg Capsule] Levalbuterol Tartrate 2 puff IH Q4HP PRN 02/07/19 02/07/22 [Levalbuterol Tartrate Hfa] Milnacipran HCl [Savella] 100 mg PO BID 02/07/19 02/07/22 lisinopriL [Lisinopril 2.5mg Tab] 2.5 mg PO DAILY 02/07/19 02/07/22 Rosuvastatin Calcium 20 mg PO HS 02/08/19 02/07/22 Amitriptyline HCl [Elavil 25mg 25 mg PO HS 02/26/19 02/07/22 tablet] Tizanidine HCl [Zanaflex 4mg 4 mg PO BID 05/18/20 02/07/22 tab] alendronate 70 mg tablet 70 mg PO WEEKLY tab 10/11/20 02/07/22 levocetirizine 5 mg tablet 5 mg PO DAILY tab 10/11/20 02/07/22 Diclofenac Sodium [Diclofenac 75mg 75 mg PO BID 11/22/20 02/07/22 Tab] Brijeshela
--- NOTE | 2022-02-18 14:29 | PC.NURSE ---
notified rad of Ct order, spoke with jamal
[2022-02-18 14:30] VITALS: BP 145/76; PULSE 107; O2SAT 94
--- NOTE | 2022-02-18 14:56 | PC.NURSE ---
pt reports pain has improved, pt reports unable to urinate at this time
[2022-02-18 15:00] VITALS: BP 142/78; PULSE 112; O2SAT 94
[2022-02-18 16:20] VITALS: BP 145/79; PULSE 109; RESP 18; TEMP 36.8; O2SAT 95
== END 2022-02-18 16:23 | disposition home or self-care (01) ==
PROVIDERS: Emergency Provider Emergency Medicine; PCP Internal Medicine
DX: N20.1 Calculus of ureter (principal); Z79.899 Other long term (current) drug therapy; Z79.82 Long term (current) use of aspirin; Z88.8 Allergy status to other drugs, medicaments and biological substances; Z88.1 Allergy status to other antibiotic agents; Z88.6 Allergy status to analgesic agent; J44.9 Chronic obstructive pulmonary disease, unspecified; I25.10 Atherosclerotic heart disease of native coronary artery without angina pectoris; I73.9 Peripheral vascular disease, unspecified; E11.9 Type 2 diabetes mellitus without complications; E78.5 Hyperlipidemia, unspecified; I10 Essential (primary) hypertension
CPT/HCPCS: 74176; 87086

== ENCOUNTER → 2022-02-18 16:41 | Outpatient (CLI) | payer MEDICARE, OTHER, SELFPAY | LOC: LAB 16:42 → LAB.DROPOF 16:45 | PROVIDERS: Visit Provider Urology | DX: R31.0 Gross hematuria (principal) | CPT/HCPCS: 87086 ==

== ENCOUNTER 2022-02-19 20:52 | Inpatient (IN) | payer MEDICARE, OTHER, SELFPAY ==
[2022-02-19 20:55] VITALS: BP 115/76; PULSE 125; RESP 22; TEMP 38.1; O2SAT 97; BMI 32.8
--- NOTE | 2022-02-19 21:17 | XR_ITS ---
PROCEDURE INFORMATION: Exam: XR Chest Exam date and time: 02/19/2022 9:23 PM Age: 76 years old Clinical indication: Shortness of breath; Additional info: Short of air TECHNIQUE: Imaging protocol: XR of the chest. Views: 1 view. COMPARISON: CT CHEST WO CON 07/24/2021 10:26 AM FINDINGS: Lungs: Lucency within the upper lung zones compatible with emphysema. No consolidation. Pleural spaces: No pneumothorax. Heart/Mediastinum: Prominent cardiac silhouette which is grossly stable. Bones/joints: Scoliosis. No acute fracture. IMPRESSION: Chronic changes without definite acute cardiopulmonary process.
--- NOTE | 2022-02-19 21:25 | ECG_ITS ---
APPROVED REPORT Exam: Resting ECG HR:113 bpm ECG Measurements Heart Rate 113 AXES NE 143 P 93 QRSd 74 QRS 173 QT 340 T -12 QTc 407 Conclusion SINUS TACHYCARDIA ARM LEADS REVERSED [INVERTED P AND QRS IN I] ABNORMAL RHYTHM ECG INTERPRETATION BASED ON A DEFAULT AGE OF 40 YEARS UNCONFIRMED REPORT Electronically signed by : Delvin Newton MD 02/20/2022 21:18:30
[2022-02-19 21:30] VITALS: BP 89/40; PULSE 124; RESP 22; O2SAT 97
[2022-02-19 21:30] LABS: ABG HCO3 23.9 mmhg (22.0-26.0); ABG Oxygen Saturation 96 % (90-100); ABG PCO2 46.1 mmhg (35.0-45.0); ABG PH 7.33 mmol/L (7.35-7.45); ABG PO2 91.8 mmhg (80-100); ABG TCO2 25.3 mmhg (23-27)
[2022-02-19 21:30] LABS: Basophils # 0.3 K/mm3 (0-0.2); Basophils % 0.9 % (0.1-2.0); Hematocrit 32.3 % (37.0-47.0); Hemoglobin 10.2 g/dL (12.2-16.2); Lymphocytes # 2.1 K/mm3 (0.7-4.5); Lymphocytes % 7.1 % (10-50); Mean Corpuscular HGB Conc 31.7 g/dL (31.8-35.4); Mean Corpuscular Hemoglobin 25.3 pg (27.0-31.2); Mean Corpuscular Volume 79.9 fl (81-99); Mean Platelet Volume 8.5 fl (7.4-10.4); Monocytes # 1.7 K/mm3 (0.1-1.0); Monocytes % 5.8 % (1.7-9.3); Neutrophils % 86.2 % (37.0-80.0); Platelet Count 328 K/mm3 (142-424); Red Blood Count 4.05 M/mm3 (4.20-5.40); Red Cell Distribution Width 17.3 % (11.5-17.5); White Blood Count 30.1 K/mm3 (4.8-10.8)
[2022-02-19 21:31] LABS: Allen's Test Acceptable; Source Left Radial
[2022-02-19 21:32] LABS: Coronavirus 19, PCR Not Detected (NotDetected); Influenza A, PCR Not Detected (NotDetected); Influenza B, PCR Not Detected (NotDetected)
[2022-02-19 21:33] LABS: Chloride 98 mmol/L (98-107); Potassium 4.5 mmoL/L (3.5-5.1); Sodium 132 mmol/L (136-145)
[2022-02-19 21:36] LABS: Alanine Aminotransferase 20 U/L (12-78); Albumin Level 3.4 g/dl (3.5-5.0); Albumin/Globulin Ratio 1.2 (1.1-1.8); Alkaline Phosphatase 57 U/L (38-126); Anion Gap 8.5 mEq/L (5-15); Aspartate Amino Transferase 34 U/L (14-36); Bilirubin,Total 0.4 mg/dl (0.2-1.3); Blood Urea Nitrogen 28 mg/dl (7-17); Carbon Dioxide 30 mmol/L (22.0-30.0); Creatinine Clearance Estimated 31 mL/min (50-200); Estimated Glomerular Filt Rate 23 ml/min (>60); GFR (African American) 28 ML/MIN (>60); Globulin 2.9 g/dL (1.3-3.2); Total Protein,Serum 6.3 g/dl (6.3-8.2)
[2022-02-19 21:37] LABS: Calcium 8.6 mg/dl (8.4-10.2); Glucose 155 mg/dl (74-100)
[2022-02-19 21:42] LABS: C-Reactive Protein 138.9 mg/L (0-4)
[2022-02-19 21:46] LABS: Lactic Acid 2.4 mmol/L (0.7-2.1)
[2022-02-19 21:47] LABS: MANUAL DIFFERENTIAL MANUAL DIFFERENTIAL (MANUAL DIFF)
--- NOTE | 2022-02-19 21:51 | PC.NURSE ---
Notified sepsis fluid bolus was going. Labs have started to result at this time. No new orders at this time.
--- NOTE | 2022-02-19 21:57 | HMH.EDWEAK ---
ED Disposition Clinical Impression: Septic shock, Severe sepsis with acute organ dysfunction, Obesity (BMI 30-39.9), Acute exacerbation of chronic obstructive airways disease, TENA (acute kidney injury) UTI (urinary tract infection) Qualifiers: Urinary tract infection type: site unspecified Hematuria presence: without hematuria Qualified Code(s): N39.0 - Urinary tract infection, site not specified Anemia Qualifiers: Anemia type: unspecified type Qualified Code(s): D64.9 - Anemia, unspecified Hypothyroidism Qualifiers: Hypothyroidism type: acquired Qualified Code(s): E03.9 - Hypothyroidism, unspecified Diabetes Qualifiers: Diabetes mellitus type: type 2 Diabetes mellitus halfway insulin use: unspecified long term care pharmacist insulin use status Diabetes mellitus complication status: with other specified complication Qualified Code(s): E11.69 - Type 2 diabetes mellitus with other specified complication Disposition: Admitted As Inpatient Condition on Discharge: Fair - Critical Care Critical Care Time: No Attestation: On 02/19/22, the high probability of a clinically significant, sudden or life threatening deterioration of the following system(s) required my full and direct attention, intervention and personal management. The time I documented below is in addition to time spent performing reported procedures but includes the following listed in this critical care notation. Medical Decision Making - Medical Records Medical records reviewed: Yes: I reviewed the patient's medical records. - Eric Inquiry Pt receiving controlled substance: No Vital Signs: 02/19/22 20:55 02/19/22 21:30 02/19/22 22:00 Temperature 100.5 F H Temperature Source Oral Pulse Rate 124 H 115 H Pulse Rate [Left] 125 H Respiratory Rate 22 22 22 Blood Pressure 89/40 L 117/39 L Blood Pressure [Right Arm] 115/76 Blood Pressure Mean [Right Arm] 89 02 Sat by Pulse Oximetry 97 97 98 Oxygen Delivery Method Non-Rebreather Non-Rebreather Non-Rebreather Oxygen Flow Rate (LPM) 6 8 6 02/19/22 22:30 02/19/22 23:00 02/19/22 23:09 Temperature 98.7 F Temperature Source Oral Pulse Rate 118 H 115 H 116 H Pulse Rate [Left] Respiratory Rate 24 22 22 Blood Pressure 98/38 L 90/46 L 90/46 L Blood Pressure [Right Arm] Blood Pressure Mean [Right Arm] 02 Sat by Pulse Oximetry 94 L 88 L 91 L Oxygen Delivery Method Nasal Cannula Room Air Nasal Cannula Oxygen Flow Rate (LPM) 4 02/20/22 00:16 02/20/22 00:32 Temperature Temperature Source Pulse Rate 107 H 114 H Pulse Rate [Left] Respiratory Rate 14 22 Blood Pressure 85/47 L 97/51 L Blood Pressure [Right Arm] Blood Pressure Mean [Right Arm] 02 Sat by Pulse Oximetry 95 93 L Oxygen Delivery Method Nasal Cannula Nasal Cannula Oxygen Flow Rate (LPM) 6 4 - Lab Data Lab results reviewed: Yes: I reviewed the patient's lab results. Lab Results 02/19/22 20:55: WBC 30.1 H*, RBC 4.05 L, Hgb 10.2 L, Hct 32.3 L, MCV 79.9 L, MCH 25.3 L, MCHC 31.7 L, RDW 17.3, Plt Count 328, MPV 8.5, Neut % (Auto) 86.2 H, Lymph % (Auto) 7.1 L, [place] % (Auto) 5.8, Eos % (Auto) 0.0 L, Baso % (Auto) 0.9, Neut # (Auto) 26.0 H, Lymph # (Auto) 2.1, [place] # (Auto) 1.7 H, Eos # (Auto) 0.0, Baso # (Auto) 0.3 H, Total Counted 100, Neutrophils % (Manual) 86 H, Lymphocytes % (Manual) 5 L, Monocytes % (Manual) 9, Nucleated RBCs 1, Platelet Estimate Normal, Hypochromasia 1+, Anisocytosis 2+, Microcytosis 1+ 02/19/22 20:55: Sodium 132 L, Potassium 4.5, Chloride 98, Carbon Dioxide 30, Anion Gap 8.5, BUN 28 H, Creatinine 2.10 H, Estimated Creat Clear 31, Estimated GFR 23 L, Est GFR ( Amer) 28 L, Glucose 155 H, Calcium 8.6, Total Bilirubin 0.4, AST 34, ALT 20, Alkaline Phosphatase 57, Troponin I < 0.01, C-Reactive Protein 138.9 H, Total Protein 6.3, Albumin 3.4 L, Globulin 2.9, Albumin/Globulin Ratio 1.2, Procalcitonin 16.2 H 02/19/22 20:55: Lactate 2.4 H 02/19/22 20:55: Total Creatine Kinase 342 H 02/19/22 21:15: Specime
[2022-02-19 22:00] VITALS: BP 117/39; PULSE 115; RESP 22; O2SAT 98
[2022-02-19 22:10] LABS: Troponin I < 0.01 ng/ml (0.00-0.034)
--- NOTE | 2022-02-19 22:15 | PC.NURSE ---
Dahiana,RN at bedside collecting urine. Pt advises she has trouble urinating and requesting brief be placed instead of lam cath being anchored. We changed pt brief and sheets at this time and repositioned her. No other needs
[2022-02-19 22:24] LABS: Microscopic, Urine URINE MICROSCOPIC (MICROSCOPIC)
[2022-02-19 22:30] VITALS: BP 98/38; PULSE 118; RESP 24; O2SAT 94
[2022-02-19 22:31] LABS: Appearance,Urine CLOUDY (Clear); Blood, Urine 2+ (Negative); Color,Urine DK YELLOW (Yellow); Glucose,Urine (UA) Negative (Negative); Ketones,Urine Negative (Negative); Leukocyte Esterase,Urine 2+ (Negative); Nitrate,Urine Negative (Negative); Protein,Urine 2+ (Negative); Specific Gravity, Urine >= 1.030 (1.005-1.030); Urobilinogen,Urine 0.2 EU/dl (0.2)
--- NOTE | 2022-02-19 22:32 | CT_ITS ---
PROCEDURE INFORMATION: Exam: CT Head Without Contrast Exam date and time: 02/19/2022 10:51 PM Age: 76 years old Clinical indication: Injury or trauma; Fall; Blunt trauma (contusions or hematomas); Consciousness not specified TECHNIQUE: Imaging protocol: Computed tomography of the head without contrast. Radiation optimization: All CT scans at this facility use at least one of these dose optimization techniques: automated exposure control; mA and/or kV adjustment per patient size (includes targeted exams where dose is matched to clinical indication); or iterative reconstruction. COMPARISON: CT HEAD/BRAIN WO CON 04/12/2021 3:25 PM FINDINGS: Brain: Age-related volume loss. No acute intracranial hemorrhage. No midline shift or significant intracranial mass effect. Cerebral ventricles: No hydrocephalus. Paranasal sinuses: Visualized sinuses are unremarkable. No fluid levels. Mastoid air cells: Visualized mastoid air cells are well aerated. Bones/joints: Heterogeneous calvarial attenuation, stable from prior. No acute calvarial fracture. Soft tissues: Unremarkable. IMPRESSION: No acute intracranial abnormality.
--- NOTE | 2022-02-19 22:32 | CT_ITS ---
PROCEDURE INFORMATION: Exam: CT Cervical Spine Without Contrast Exam date and time: 02/19/2022 10:51 PM Age: 76 years old Clinical indication: Injury or trauma; Fall; Blunt trauma TECHNIQUE: Imaging protocol: Computed tomography images of the cervical spine without contrast. Radiation optimization: All CT scans at this facility use at least one of these dose optimization techniques: automated exposure control; mA and/or kV adjustment per patient size (includes targeted exams where dose is matched to clinical indication); or iterative reconstruction. COMPARISON: CR XR MULTIPLE SPINE 6+V 02/14/2020 11:47 AM FINDINGS: Limitations: Patient motion. Bones/joints: Grade 1 anterolisthesis C4 on C5 and C7 on T1. Vertebral body heights are preserved. Jmdn-os-heegbevd degenerative change about the dens. Mild prevertebral osteophytosis. There are mild for age facet joint degenerative changes. No acute cervical spine fracture. Discs/Spinal canal/Neural foramina: No definite significant central canal stenosis within limitations of technique. Lungs: Lung apices are normal. Pleural spaces: No visible pneumothorax. Soft tissues: Unremarkable. IMPRESSION: No acute cervical spine fracture.
--- NOTE | 2022-02-19 22:33 | XR_ITS ---
PROCEDURE INFORMATION: Exam: XR Pelvis Exam date and time: 02/19/22 10:39 PM Age: 76 years old Clinical indication: Injury or trauma; Fall; Blunt trauma (contusions or hematomas); Does not apply; Pelvic region TECHNIQUE: Imaging protocol: XR pelvis. Views: 1 or 2 view. COMPARISON: CT ABDOMEN PELVIS WO CON 02/18/22 02:30 PM FINDINGS: Bones/joints: Degenerative changes both hips. Degenerative changes lumbar spine. No acute fracture. Soft tissues: Unremarkable. IMPRESSION: No acute fracture.
[2022-02-19 22:39] LABS: Creatine Kinase 342 U/L (30-135)
[2022-02-19 22:39] LABS: Bilirubin,Urine 1+ (Negative)
[2022-02-19 22:40] LABS: Procalcitonin 16.2 ng/mL (0.0-2.0)
--- NOTE | 2022-02-19 22:46 | PC.NURSE ---
Pt going to rad
[2022-02-19 22:57] LABS: Bacteria,Urine 1+ /lpf; WBC,Urine TNTC #/hpf (0-3)
[2022-02-19 23:00] VITALS: BP 90/46; PULSE 115; RESP 22; O2SAT 88
--- NOTE | 2022-02-19 23:05 | PC.NURSE ---
PT returned from rad
--- NOTE | 2022-02-19 23:07 | PC.NURSE ---
Updated daughter on POC
[2022-02-19 23:09] VITALS: BP 90/46; PULSE 116; RESP 22; TEMP 37.1; O2SAT 91
[2022-02-19 23:22] LABS: Anisocytosis 2+; Lymphocytes % 5 % (10-50); Microcytosis 1+; Monocytes % 9 % (2-9); Neutrophils % 86 % (42-76); Nucleated Red Blood Cells 1; Platelet Estimate Normal; Total Cells Counted 100
[2022-02-19 23:23] LABS: Hypochromasia 1+
[2022-02-20] VITALS (44 sets, daily range): BP systolic 80–146; BP diastolic 38–73; PULSE 95–115; RESP 14–35; TEMP 36.4–37; O2SAT 91–100; BMI 33.8; BMI 34.7
--- NOTE | 2022-02-20 00:14 | PC.NURSE ---
Patient admitted to [address] Linares with dx of Copd with exacerbation, UTI, sepsis with organ dysfunction
--- NOTE | 2022-02-20 00:25 | PC.NURSE ---
Pt repositioned and updated on POC.
--- NOTE | 2022-02-20 00:30 | PC.NURSE ---
Notified that pt remains hypotensive after fluid bolus has completed. Advised him we would need tissue perfusion assessment completed and vasopressor would need to be started.
--- NOTE | 2022-02-20 00:33 | PC.NURSE ---
[facility] paged at this time
--- NOTE | 2022-02-20 00:35 | PC.NURSE ---
Spoke with Irma from [facility] about levophed drip. Advised she would enter order.
--- NOTE | 2022-02-20 00:44 | PC.NURSE ---
report called at 1242 to maria del carmen MACEDO
[2022-02-20 00:49] LABS: Troponin I < 0.01 ng/ml (0.00-0.034)
[2022-02-20 01:19] LABS: Reflex Lactic Add Lactic Reflex
--- NOTE | 2022-02-20 01:27 | PC.NURSE ---
PT ARRIVED TO FLOOR VIA STRETCHER FROM ED W/STAFF @[phone]
[2022-02-20 01:38] LABS: Lactic Acid Follow Up (RFLX 1) 0.9 mmol/L (0.7-2.1)
[2022-02-20 01:54] LABS: Erythrocyte Sedimentation Rate 128 mm/hr (0-30)
--- NOTE | 2022-02-20 02:38 | PC.NURSE ---
attempted to do med rec at this time, pt unable to assist, will try again later
--- NOTE | 2022-02-20 03:19 | PC.NURSE ---
attempted to obtain medication list again at this time, pt is able to answer orientation questions but is unable to list medications
[2022-02-20 03:47] LABS: Troponin I < 0.01 ng/ml (0.00-0.034)
[2022-02-20 06:34] LABS: POC Glucose,Bedside 214 (70-110)
[2022-02-20 06:47] LABS: Basophils # 0.1 K/mm3 (0-0.2); Basophils % 0.3 % (0.1-2.0); Eosinophils # 0.1 K/mm3 (0.0-0.4); Eosinophils % 0.2 % (0.1-12.0); Hematocrit 34.3 % (37.0-47.0); Hemoglobin 10.7 g/dL (12.2-16.2); Lymphocytes # 1.3 K/mm3 (0.7-4.5); Lymphocytes % 4.5 % (10-50); Mean Corpuscular HGB Conc 31.3 g/dL (31.8-35.4); Mean Corpuscular Hemoglobin 25.7 pg (27.0-31.2); Mean Corpuscular Volume 82.2 fl (81-99); Mean Platelet Volume 8.3 fl (7.4-10.4); Monocytes # 0.8 K/mm3 (0.1-1.0); Monocytes % 2.6 % (1.7-9.3); Neutrophils # 27.6 K/mm3 (1.8-7.8); Neutrophils % 92.3 % (37.0-80.0); Platelet Count 278 K/mm3 (142-424); Red Blood Count 4.17 M/mm3 (4.20-5.40); Red Cell Distribution Width 17.4 % (11.5-17.5); White Blood Count 29.9 K/mm3 (4.8-10.8)
--- NOTE | 2022-02-20 06:49 | PC.NURSE ---
pt arrived to floor appearing very fatigued, would open eyes to name, was able to answer orientation questions, but then would fall back to sleep, O2 currently at 2L, sats have been 92-100% this shift, levo gtt currently infusing at 6 mcg/min, pt did wake up this morning during breathing treatment, did state she was so tired from not sleeping well lately
[2022-02-20 06:53] LABS: MANUAL DIFFERENTIAL MANUAL DIFFERENTIAL (MANUAL DIFF)
--- NOTE | 2022-02-20 07:12 | HMH.PHAVTE ---
[facility] Pharmacy VTE Monitoring - Patient Demographics Admission date: 02/19/22 Report Date: 02/20/22 Time: 07:12 Allergies/Adverse Reactions: Patient Allergies aripiprazole [From ABILIFY] Allergy (Unknown, Verified 02/07/22 14:18) Unknown allergy reaction ciprofloxacin [CIPROFLOXACIN] Allergy (Unknown, Verified 02/07/22 14:18) Unknown allergy reaction phenazopyridine [PHENAZOPYRIDINE] Allergy (Unknown, Verified 02/07/22 14:18) Unknown allergy reaction Height: 1.6 m Weight: 86.727 kg Patient Problems: Current Active Problems Severe sepsis with acute organ dysfunction (Acute) TENA (acute kidney injury) (Acute) Obesity (BMI 30-39.9) (Acute) Septic shock (Acute) Anemia (Acute) Hypothyroidism (Acute) UTI (urinary tract infection) (Acute) Acute exacerbation of chronic obstructive airways disease (Acute) Diabetes (Chronic) - VTE Risk Labs: VTE Related Lab Results Hgb 10.7 g/dL (12.2-16.2) L 02/20/22 06:32 Hct 34.3 % (37.0-47.0) L 02/20/22 06:32 Plt Count 278 K/mm3 (142-424) 02/20/22 06:32 BUN 28 mg/dl (7-17) H 02/19/22 20:55 Creatinine 2.10 mg/dl (0.52-1.04) H 02/19/22 20:55 Estimated Creat Clear 31 mL/min (50-200) 02/19/22 20:55 VTE Score: 10 VTE Risk Level: Moderate Risk - Prophylaxis VTE Prophylaxis Ordered?: Yes Types of VTE Prophylaxis: TEDS Knee High Location of Applied Device: Bilateral Lower Extremeties
--- NOTE | 2022-02-20 07:20 | HMH.HP ---
*Admission Date: 02/19/22 *Chief complaint: weakness *History of present illness: Ms. Lema is a 76-year-old female with complex past medical history numerous comorbidities who presented to the ER with weakness after being found down at home. She is brought in by EMS. Of note has recent history in the past few days of diagnosis of kidney stone with referral to urology at [facility]. Had not followed up with them yet. On arrival was complaining of left rib pain, weakness, fatigue. She denied clarke chest pain, nausea or vomiting. Work-up was initiated because of initial finding of tachycardia, hypotension, increased oxygen requirement. Labs positive for UTI, severe leukocytosis, acute kidney injury. Meeting criteria for septic shock as she did not respond well to initial fluid resuscitation and antibiotics. Necessitated initiation of norepinephrine. Able to achieve improved hemodynamics on Levophed drip. Initiated on sepsis protocol with fluids and antibiotics. Admitted to medicine for further management of her septic shock. Consult placed for urology. On exam this morning she states she is feeling a little bit better. Is alert and oriented to person and place. Gives a good recount of her recent history. Is back to her baseline oxygen requirement (2 L). Blood pressure better on exam this morning with ability to wean her norepinephrine down on rounds. Denies any nausea or vomiting. Of note did not eat breakfast and has not had anything to drink since before midnight. [facility] [place] History I have reviewed the patient's past medical history: Yes Medical History: Reports:: Anxiety, Asthma, Chronic Obstructive Pulmonary Disease (COPD), Coronary Artery Disease, Deep Vein Thrombosis, Depression, Diabetes Mellitus Type 2, Gastroesophageal Reflux Disease(GERD), Hyperlipidemia, Hypertension, Kidney Stones, Migraine Denies:: Cancer, Diabetes Mellitus Type 1, Internal Pacemaker, MRSA, Seizures *Have you ever received a pneumonia vaccine?: Yes *Have you received a flu vaccine this season?: No Other Medical History: Reports: Anemia, Arthritis, Cataracts, Hypothyroidism, Sinus Problems. Denies: Blood Transfusion Reaction Laterality Cases: Bilateral: Tonsillectomy Other Surgeries: Yes: No Previous Surgery, Appendectomy, Cardiac Catheterization, Cholecystectomy, Colonoscopy, Colon Resection, , Hysterectomy-Total, Other. No: Pacemaker Amputation: No Fractures: No - *Social History Smoking Status: Current every day smoker Tobacco Type: cigarettes # Packs/Day (cigarettes): 1 Alcohol Intake: never Alcohol Intake Frequency:: other Substance Use Type: denies use *Occupational Status:: other Housing: house Household Members: children *Travel in the last 8 weeks: None - Psychiatric History Pschychiatric History:: Reports:: Anxiety, Depression Family Hx:: Cancer, Coronary Artery Disease, Heart Attack, Stroke Review of Systems - Review of Systems Review of systems:: pertinent systems reviewed and negative unless documented below (14 point review of systems performed, pertinent positives and negatives as per HPI) - *Neurologic Reports weakness, Denies confusion, Denies localized weakness, Denies headache(s), Denies seizure-like activity Meds Home Medications Medication Instructions Recorded Confirmed Type gabapentin 300 mg capsule 900 mg PO HS 10/06/17 02/20/22 History alprazolam 1 mg tablet 1 mg PO TIDP PRN tab 08/24/18 02/20/22 History omeprazole 40 mg capsule,delayed 40 mg PO BID cap 08/24/18 02/20/22 History release Levalbuterol Tartrate 2 puff IH Q4H 02/07/19 02/20/22 History [Levalbuterol Tartrate Hfa] Milnacipran HCl [Savella] 100 mg PO BID 02/07/19 02/20/22 History lisinopriL [Lisinopril 2.5mg Tab] 2.5 mg PO DAILY 02/07/19 02/20/22 History Rosuvastatin Calcium 20 mg PO HS 02/08/19 02/20/22 History Amitriptyline HCl [Elavil 25mg 25 mg PO HS 02/26/19 02/20/22 History tablet] alendronate 70 mg tablet 70 mg PO WE
--- NOTE | 2022-02-20 07:45 | HMH.PHAINT ---
MEDICATION RECONCILIATION COMPLETED ON PATIENT USING EXTERNAL FILL HISTORY FROM PHARMACY. -AMADO RICK, KIRTID
--- NOTE | 2022-02-20 07:55 | PC.NURSE ---
pt has been NPO since before midnight.
--- NOTE | 2022-02-20 08:15 | PC.NURSE ---
Levo gtt turned OFF. BP 131/68 (89).
[2022-02-20 08:25] LABS: Lymphocytes % 19 % (10-50); Monocytes % 3 % (2-9); Neutrophils % 78 % (42-76); Total Cells Counted 100
[2022-02-20 08:26] LABS: Platelet Estimate Normal; RBC Morphology Normal
[2022-02-20 09:07] LABS: Chloride 104 mmol/L (98-107); Potassium 4.6 mmoL/L (3.5-5.1); Sodium 136 mmol/L (136-145)
[2022-02-20 09:10] LABS: Anion Gap 8.6 mEq/L (5-15); Blood Urea Nitrogen 33 mg/dl (7-17); Carbon Dioxide 28 mmol/L (22.0-30.0); Creatinine Clearance Estimated 44 mL/min (50-200); Estimated Glomerular Filt Rate 34 ml/min (>60); GFR (African American) 41 ML/MIN (>60); Glucose 221 mg/dl (74-100); Magnesium 1.5 mg/dl (1.6-2.3)
[2022-02-20 11:41] LABS: POC Glucose,Bedside 169 (70-110)
--- NOTE | 2022-02-20 13:34 | PC.NURSE ---
pt to OR
--- NOTE | 2022-02-20 13:54 | HMH.CONS ---
*Admission Date: 02/19/22 *Reason for consult:: Right ureteral stone with urosepsis *History of present illness: Patient is a 76-year-old white female known to me with history of stress incontinence now referred for a right distal ureteral stone with obstruction and signs of urosepsis. CT scan shows a 3 mm stone just proximal to the right UVJ with significant hydroureteronephrosis. Patient came in 2 days ago with pain and CT scan was performed at that time. She came back in last evening with weakness and was found down at home. She started having first days of right flank pain 2 days ago but denied any associated nausea vomiting. Her white count was elevated on admission to 30,000. Her creatinine was 2.1. Her T-max 100.5. She really has not had much flank pain since admission by report. [facility] History Medical History: Reports:: Anxiety, Asthma, Chronic Obstructive Pulmonary Disease (COPD), Coronary Artery Disease, Deep Vein Thrombosis, Depression, Diabetes Mellitus Type 2, Gastroesophageal Reflux Disease(GERD), Hyperlipidemia, Hypertension, Kidney Stones, Migraine Denies:: Cancer, Diabetes Mellitus Type 1, Internal Pacemaker, MRSA, Seizures *Have you ever received a pneumonia vaccine?: Yes *Have you received a flu vaccine this season?: No Other Medical History: Reports: Anemia, Arthritis, Cataracts, Hypothyroidism, Sinus Problems. Denies: Blood Transfusion Reaction Laterality Cases: Bilateral: Tonsillectomy Other Surgeries: Yes: No Previous Surgery, Appendectomy, Cardiac Catheterization, Cholecystectomy, Colonoscopy, Colon Resection, , Hysterectomy-Total, Other. No: Pacemaker Amputation: No Fractures: No - *Social History Smoking Status: Current every day smoker Tobacco Type: cigarettes # Packs/Day (cigarettes): 1 Alcohol Intake: never Alcohol Intake Frequency:: other Substance Use Type: denies use *Occupational Status:: other Housing: house Household Members: children *Travel in the last 8 weeks: None - Psychiatric History Pschychiatric History:: Reports:: Anxiety, Depression Family Hx:: Cancer, Coronary Artery Disease, Heart Attack, Stroke Review of Systems - Review of Systems Review of systems:: pertinent systems reviewed and negative unless documented below - *Neurologic Reports weakness, Denies confusion, Denies localized weakness, Denies headache(s), Denies seizure-like activity Meds Home Medications Medication Instructions Recorded Confirmed Type gabapentin 300 mg capsule 900 mg PO HS 10/06/17 02/20/22 History alprazolam 1 mg tablet 1 mg PO TIDP PRN tab 08/24/18 02/20/22 History omeprazole 40 mg capsule,delayed 40 mg PO BID cap 08/24/18 02/20/22 History release Levalbuterol Tartrate 2 puff IH Q4H 02/07/19 02/20/22 History [Levalbuterol Tartrate Hfa] Milnacipran HCl [Savella] 100 mg PO BID 02/07/19 02/20/22 History lisinopriL [Lisinopril 2.5mg Tab] 2.5 mg PO DAILY 02/07/19 02/20/22 History Rosuvastatin Calcium 20 mg PO HS 02/08/19 02/20/22 History Amitriptyline HCl [Elavil 25mg 25 mg PO HS 02/26/19 02/20/22 History tablet] alendronate 70 mg tablet 70 mg PO WEEKLY tab 10/11/20 02/20/22 History levocetirizine 5 mg tablet 5 mg PO DAILY tab 10/11/20 02/20/22 History Bethanechol Chloride [Urecholine 25 mg PO TID 12/18/20 02/20/22 History 25mg Tablet] Cyclobenzaprine HCl 5 mg PO HS 12/18/20 02/20/22 History [Cyclobenzaprine 5mg Tab*] Furosemide [Furosemide 40MG tAB*] 40 mg PO DAILY 12/18/20 02/20/22 History Levothyroxine Sodium 125 mcg PO DAILY 12/18/20 02/20/22 History [Levothyroxine 125mcg (0.125mg) Tab] Metformin HCl [Metformin HCl ER] 500 mg PO BID 12/18/20 02/20/22 History Montelukast Sodium 10 mg PO HS 12/18/20 02/20/22 History Sitagliptin Phosphate [Januvia 100 mg PO DAILY 12/18/20 02/20/22 History 100mg tablet] Aspirin [Low Dose Aspirin EC] 81 mg PO DAILY 04/11/21 02/20/22 History Mirabegron [Myrbetriq] 50 mg PO DAILY 12/23/21 02/20/22 History bisoproloL fumarate [Bisoprol
--- NOTE | 2022-02-20 15:21 | XR_ITS ---
FINAL REPORT CLINICAL HISTORY: RIGHT STENT PLACEMENT IN OR 1.47 fluoro time 70.19 mGy FINDINGS: FLUORO TIME PROCEDURE: Right stent placement in OR FINDINGS: Fluoroscopy time was provided by the radiology department for the clinical service. 2 films were obtained. Fluoroscopy exposure time: 1:47 IMPRESSION: See above Reviewed, Interpreted and Dictated by Ghulam Ramirez III, MD Transcribed by Rozina Ann Authenticated and [facility]
--- NOTE | 2022-02-20 15:27 | HMH.ANESCL ---
[facility] Anesthesia Checklist - Patient Identification Patient Identification: Arm Band - Structural Data Admitted From: Inpatient Planned Operative Procedure/s: Cystoscopy with Right Ureteral Stent Placement Consent for Planned Operative Procedure(s) Verified: Yes Verified Documents: Surgical Consent, History and Physical - NPO Status Verified Time NPO: 00:00 - Additional verifications Anesthesia Reactions: No Hx Blood Transfusions: No Blood Transfusion Reaction: No - Airway Assessment C-Spine Mobility Assessed: Yes (mp2) TMJ Mobility Assessed: Yes Dentition: Edentulous - Neurological Assessment Level of Consciousness: Awake, Alert - Anesthesia Plan Anesthesia Risk discussed: Yes Anesthesia Plan: Verified ASA Class: III Anesthesia Type: General [facility] History I have reviewed the patient's past medical history: Yes Medical History: Reports:: Anxiety, Asthma, Chronic Obstructive Pulmonary Disease (COPD), Coronary Artery Disease, Deep Vein Thrombosis, Depression, Diabetes Mellitus Type 2, Gastroesophageal Reflux Disease(GERD), Hyperlipidemia, Hypertension, Kidney Stones, Migraine Denies:: Cancer, Diabetes Mellitus Type 1, Internal Pacemaker, MRSA, Seizures *Have you ever received a pneumonia vaccine?: Yes *Have you received a flu vaccine this season?: No Other Medical History: Reports: Anemia, Arthritis, Cataracts, Hypothyroidism, Sinus Problems. Denies: Blood Transfusion Reaction Anesthesia experience/problems:: nac Laterality Cases: Bilateral: Tonsillectomy Other Surgeries: Yes: Appendectomy, Cardiac Catheterization, Cholecystectomy, Colonoscopy, Colon Resection, , Hysterectomy-Total, Other. No: Pacemaker Amputation: No Fractures: No - *Social History Smoking Status: Current every day smoker Tobacco Type: cigarettes # Packs/Day (cigarettes): 1 Alcohol Intake: never Alcohol Intake Frequency:: other Substance Use Type: denies use *Occupational Status:: other Housing: house Household Members: children *Travel in the last 8 weeks: None - Psychiatric History Pschychiatric History:: Reports:: Anxiety, Depression Family Hx:: Cancer, Coronary Artery Disease, Heart Attack, Stroke
--- NOTE | 2022-02-20 15:28 | HMH.ANESI ---
[facility] Anesthesia Record Part I Intake, IV Amount: 900 Estimated blood loss (mL): 0 Urine output (mL): 0 Blood Pressure: 112/57 SaO2: 91 Pulse Rate: 115 Respiratory Rate: 16 Temperature: 98.6 F Patient is:: Drowsy, Stable Stable to PACU at:: 15:25
--- NOTE | 2022-02-20 15:45 | P.OP_ITS ---
Date of procedure: 02/20/22 Pre-op Diagnosis:: Right ureteral stone with obstruction and urosepsis Post-op Diagnosis:: Same Procedure performed:: Cystoscopy with stone removal, right ureteroscopy and right stent placement Surgeon:: Sb Valles MD TRANSMISSION CALIBRATION ENGINEER:: Igor Soto Anesthesia: LMA Estimated blood loss (mL): 0 Clinical Note:: 76-year-old white female with recent weakness and fatigue presented to emergency room yesterday and noted to have an elevated white count and evidence of a 3 mm right distal ureteral stone with hydroureteronephrosis. She has been on IV antibiotics and presents for urologic management. Operative findings:: A 3 mm stone was spontaneously passed through the right ureter or orifice with manipulation of the ureter with a guidewire. Ureteroscopy revealed no other stones present. A stent was passed with copious urine from the stent. Operative note:: Patient taken to the operating room after informed consent was obtained. She was on IV antibiotics on the floor. She was placed on the table in the supine position and general anesthesia administered. After analgesia is she was placed in the dorsolithotomy position and prepped and draped in the standard surgical fashion. The 22 British cystoscope passed into the urethra and into the bladder without difficulty. There was a lot of debris in the bladder and it was irrigated free. The bladder was then surveyed and there is no evidence of mucosal abnormalities, stones, diverticula or trabeculation. The ureteral orifices in their normal anatomic position. A 5 British ureteral catheter was then passed into the right ureteral orifice and a guidewire passed through the ureteral catheter and into the right renal pelvis noted under fluoroscopy. There was some tortuosity of the wire proximally. The ureteral catheter then removed and the cystoscope removed. Our semirigid ureteroscope was passed into the bladder and small stone was noted in the base of the bladder at that time. The ureteroscope was passed into the right ureter and there was a lot of edema noted of the distal and mid ureter but no evidence of stone. This was done very briefly and the scope then removed and the cystoscope replaced over the guidewire. Approximately the curl of the stent seemed a little low and the ureteral catheter was passed back over the guidewire and contrast injected and a retrograde fashion showing that the right kidney was low-lying and there was a tortuous loop in the proximal ureter. The guidewire passed back through the ureteral catheter and a 4.8 x 24 British stent was passed over the guidewire and under fluoroscopy the proximal end of the curl was noted to be in the renal pelvis. The string and wire removed with a good curl noted proximally and distally. Copious urine was noted from the stent after placement. The stone in the bladder was removed and passed off as a specimen. Bladder emptied and the scope removed patient tolerated procedure well no complications. Condition: stable Disposition: PACU Specimens:: Stone Complications:: None
--- NOTE | 2022-02-20 16:00 | PC.NURSE ---
pt back from OR
[2022-02-20 16:41] LABS: POC Glucose,Bedside 163 (70-110)
--- NOTE | 2022-02-20 18:30 | PC.NURSE ---
shift summary: Pt has done will this shift. Had a cystoscopty with right ureteral stent palcement. Wears a brief with purwick in place. Is A&O. Has required 2 doses of Percocet 5/325 and 2 doses of Xanax 0.5mg today. Reports that pain is mainly in her back and is chronic. Has not been OOB today. No edema. Oxygen 2L NC continuously with O2 sat high 90s. Sinus tach on tele. Has been normotensive. Levo gtt turned OFF around 8am this morning. No BM this shift.
[2022-02-21] VITALS (10 sets, daily range): BP systolic 101–144; BP diastolic 55–85; PULSE 90–134; RESP 20–24; TEMP 36.1–37.1; O2SAT 90–99; BMI 34.7
[2022-02-21 02:33] LABS: POC Glucose,Bedside 260 (70-110)
--- NOTE | 2022-02-21 04:09 | PC.NURSE ---
Pt A&O x3. No complaints stated. She remains on 2L O2 NC. BP has been soft. Pt is incontinent of urine and wears a purewick. She has been encouraged to turn.No other concerns. Will continue to monitor.
[2022-02-21 06:13] LABS: POC Glucose,Bedside 193 (70-110)
[2022-02-21 06:13] LABS: Basophils % 0.1 % (0.1-2.0); Hematocrit 28.6 % (37.0-47.0); Lymphocytes # 1.2 K/mm3 (0.7-4.5); Lymphocytes % 6.6 % (10-50); Mean Corpuscular HGB Conc 30.9 g/dL (31.8-35.4); Mean Corpuscular Hemoglobin 25.1 pg (27.0-31.2); Mean Corpuscular Volume 81.2 fl (81-99); Mean Platelet Volume 8.3 fl (7.4-10.4); Monocytes # 0.6 K/mm3 (0.1-1.0); Monocytes % 3.4 % (1.7-9.3); Neutrophils # 15.9 K/mm3 (1.8-7.8); Neutrophils % 89.9 % (37.0-80.0); Platelet Count 302 K/mm3 (142-424); Red Blood Count 3.52 M/mm3 (4.20-5.40); Red Cell Distribution Width 17.6 % (11.5-17.5); White Blood Count 17.7 K/mm3 (4.8-10.8)
[2022-02-21 06:16] LABS: Chloride 109 mmol/L (98-107); MANUAL DIFFERENTIAL MANUAL DIFFERENTIAL (MANUAL DIFF); Potassium 5.2 mmoL/L (3.5-5.1); Sodium 139 mmol/L (136-145)
[2022-02-21 06:18] LABS: Alanine Aminotransferase 20 U/L (12-78); Blood Urea Nitrogen 35 mg/dl (7-17); Creatinine Clearance Estimated 57 mL/min (50-200); Estimated Glomerular Filt Rate 44 ml/min (>60); GFR (African American) 53 ML/MIN (>60)
[2022-02-21 06:19] LABS: Albumin Level 2.9 g/dl (3.5-5.0); Albumin/Globulin Ratio 1.1 (1.1-1.8); Alkaline Phosphatase 62 U/L (38-126); Anion Gap 7.2 mEq/L (5-15); Aspartate Amino Transferase 38 U/L (14-36); Calcium 8.1 mg/dl (8.4-10.2); Carbon Dioxide 28 mmol/L (22.0-30.0); Globulin 2.7 g/dL (1.3-3.2); Glucose 179 mg/dl (74-100); Magnesium 2.3 mg/dl (1.6-2.3); Total Protein,Serum 5.6 g/dl (6.3-8.2)
[2022-02-21 06:30] LABS: Bilirubin,Total 0.1 mg/dl (0.2-1.3)
--- NOTE | 2022-02-21 07:26 | P.PN_ITS ---
[facility] Anesthesia Record Part II Discharge Time: 15:55 Destination: 2nd Floor PACU nurse assessment reviewed?: Yes Patient Condition:: Good Anesthesia Complications:: None Swallowing reflex intact?: Yes Cyanosis?: No Blood Pressure: 108/58 Pulse Rate: 110 Temperature: 97.0 F Mental Status: Alert & Oriented Pain level:: 0 Nausea and/or vomitting:: None Intake, IV Amount: 0
--- NOTE | 2022-02-21 07:49 | HMH.ACPN2 ---
Internal Medicine - PN: Subj *Date: 02/21/22 *Time: 11:43 Interval history: Ms. Jackson did well overnight. Has been hemodynamically stable. Continues to remain afebrile. Tolerating fair p.o. intake. Intervention by urology yesterday with removal of stone and placement of stent. No nausea or vomiting. Reviewed labs this morning, showing improvement in kidney function and leukocytosis. Developing some mild anemia, denies any bleeding. Pleasant on exam this morning. Blood culture came back positive for Enterobacter. In thinking about treatment moving forward and ability to get her home, would like to have her on an oral medication that would cover gram-negative pathogens. Her sensitivities and allergy show ciprofloxacin. She does not recall however through extensive discussion this morning any anaphylactic reaction rash, hives, shortness of breath with this medication. Through shared decision making we decided to give this a trial today to assess for tolerance as it would be an easier medication at discharge to cover known pathogen and ease of dosing with oral administration. Exam Vital signs and Labs for Last 24 Hours: Temp Pulse Resp BP Pulse Ox 97.0 F L 110 H 20 108/58 L 96 02/21/22 07:36 02/21/22 07:36 02/21/22 04:00 02/21/22 07:36 02/21/22 06:42 Laboratory Results - last 24 hr 02/20/22 06:32: Total Counted 100, Neutrophils % (Manual) 78 H, Lymphocytes % (Manual) 19, Monocytes % (Manual) 3, Platelet Estimate Normal, RBC Morphology Normal 02/20/22 08:50: Sodium 136, Potassium 4.6, Chloride 104, Carbon Dioxide 28, Anion Gap 8.6, BUN 33 H, Creatinine 1.50 H D, Estimated Creat Clear 44, Estimated GFR 34 L, Est GFR ( Amer) 41 L D, Glucose 221 H D, Calcium 8.0 L, Magnesium 1.5 L 02/20/22 11:34: POC Glucose 169 H 02/20/22 16:34: POC Glucose 163 H 02/20/22 20:21: POC Glucose 260 H 02/21/22 05:29: POC Glucose 193 H 02/21/22 05:46: WBC 17.7 H D, RBC 3.52 L, Hct 28.6 L, MCV 81.2, MCH 25.1 L, MCHC 30.9 L, RDW 17.6 H, Plt Count 302, MPV 8.3, Neut % (Auto) 89.9 H, Lymph % (Auto) 6.6 L, Hall % (Auto) 3.4, Eos % (Auto) 0.0 L, Baso % (Auto) 0.1, Neut # (Auto) 15.9 H, Lymph # (Auto) 1.2, Hall # (Auto) 0.6, Eos # (Auto) 0.0, Baso # (Auto) 0.0 02/21/22 05:46: Sodium 139, Potassium 5.2 H, Chloride 109 H, Carbon Dioxide 28, Anion Gap 7.2, BUN 35 H, Creatinine 1.20 H, Estimated Creat Clear 57, Estimated GFR 44 L, Est GFR ( Amer) 53 L D, Glucose 179 H, Calcium 8.1 L, Magnesium 2.3 D, Total Bilirubin 0.1 L, AST 38 H, ALT 20, Alkaline Phosphatase 62, Total Protein 5.6 L, Albumin 2.9 L D, Globulin 2.7, Albumin/Globulin Ratio 1.1 I & O for Last 24 hours: Intake & Output 02/18/22 02/19/22 02/20/22 02/21/22 23:59 23:59 23:59 23:59 Intake Total 2277 / 2277 0 / 0 Output Total 500 / 500 Balance 1777 / 1777 0 / 0 Weight 83.915 kg 86.727 kg 89.04 kg Microbiology Reports for the Last 24 Hours: Microbiology 02/19/22 22:20 Urine,Catheterized Urine Culture - Preliminary 02/19/22 20:55 Blood Blood Culture - Preliminary 02/19/22 20:55 Blood Blood Culture - Preliminary Narrative: - Constitutional mild distress, obese, Stable saturations in high 90s on 2 L nasal cannula - *Routine HEENT Exam Head: Present: normocephalic Eye: Present: EOMI, PERRL ENT: Present: mucous membranes moist - *Routine Neck Exam Present: supple. Absent: lymphadenopathy - *Routine Respiratory Exam Present: CTA bilaterally - *Routine Cardiovascular Exam Present: tachycardia - *Routine Abdominal Exam Present: soft, normoactive bowel sounds, tenderness (Mild nonfocal tenderness.) - *Routine Extremities Exam Absent: cyanosis, clubbing, edema - *Routine Skin Exam Present: warm. Absent: rash - *Routine Neurological Exam Present: alert, oriented X3 Assessment and Plan (1) Septic shock Status: Acute Category: Medical Code(s): A41.9 - Sepsis, unspecified organism; R65.21 - Severe sepsis with septic shock
[2022-02-21 08:09] LABS: Hemoglobin 8.8 g/dL (12.2-16.2); Lymphocytes % 10 % (10-50); Monocytes % 4 % (2-9); Neutrophils % 86 % (42-76); Platelet Estimate Normal; RBC Morphology Normal; Total Cells Counted 100
--- NOTE | 2022-02-21 10:11 | HMH.PTEV ---
Physical Therapy Evaluation Rehab PT IP Evaluation Start: 02/21/22 09:44 Freq: .once Status: Active Protocol: Document 02/21/22 10:07 PHOYADIRA (Rec: 02/21/22 10:11 PHORNE [id number]) Subjective/History History History 76 yowf adm to [facility] with COPD exac, UTI, and sepsis. She reports she fell at home as well. She reports she lives alone, no steps to enter the home and uses oxygen at night, no AD for ambulation at baseline. Subjective Subjective She reports feeling sore in her ribs after her fall, otherwise just weak in general . Rehab PT IP Eval Objective Appearance Patient Behavior Appropriate Patient Orientation Person,Place,Time Difficulty following instructions none Speech Pattern Clear Ambulation Patient Able to Ambulate Yes Ambulation Observation IP General Gait Pattern Observation Wide Based Gait Ambulation Distance (feet) 75 Ambulation Assistive Device Rolling Walker Ambulation Ability Contact Guard/Hand Hold Balance Ability to Arise Able, uses arms to help Sitting Balance Steady, safe Standing Balance Steady, wide stance Dynamic Sitting Balance Ability Good Dynamic Standing Balance Ability Fair Transfers Bed Transfer Ability Contact Guard/Hand Hold Chair Transfer Ability Contact Guard/Hand Hold Sit to Stand Bed Transfer Ability Contact Guard/Hand Hold Sit to Stand Chair Transfer Ability Contact Guard/Hand Hold Rehab PT IP prob,goals,plan Problems Date of Evaluation: 02/21/22 PT IP Problems Bed Mobility,Transfers,Gait, Self care Rehab Potential Rehab Potential Good Plan PT Intervention Plan Bed Mobility,Transfers,Gait, Self care,Therapeutic Exercise PT Plan Frequency BID Duration LOS Discharge Goals Bed Transfer Ability Supervision/Stand by Sit to Stand Chair Transfer Ability Supervision/Stand by Ambulation Assistive Device Rolling Walker Ambulation Distance (feet) 100 Discharge Plan PT Discharge Plan Pt is appropriate to return home once medically stable, would benefit greatly from Home Health Therapy. G -code Required No Eval Complexity Eval Charge Codes 13692 - Moderate Complexity
--- NOTE | 2022-02-21 10:22 | HMH.OTEV ---
OT Inpatient Evaluation Rehab OT IP Evaluation Start: 02/21/22 10:07 Freq: ONCE Status: Complete Protocol: Document 02/21/22 10:14 ARSGARLAND (Rec: 02/21/22 10:21 [facility] [id number]) Rehab OT IP Assessment Subjective History Pt is oriented x 3 on arrival. Pt agreeable to engage in therapy evaluation. Pt was admitted via ED on 02/19/22 due to weakness/septic shock. Pt reports prior to being in the hospital she lived at home alone. Pt claims she was independent with all ADLs ( bathing, dressing, and feeding ). However, she does have someone come to her home a few times a week to complete all IADLS (cooking, cleaning, and laundry). Pt did use o2 at night with c-pap machine. She does not use any AE during ambulation. Subjective My ribs are sore. Pt resting in bed on arrival. Pt agreeable to engage in therapy session. Pt completed bed mobility and went from supine to sitting at eob with cga. Pt stood from eob with cga. Pt engaged in functional mobility task of ~75 feet with rolling walker and cga. Pt sat dowin in chair with cga . Pt was left with call martinez and all other needs in reach. Objective Patient Orientation Person,Place,Birthday Upper Extremity Gross ROM Min Limitation <25% Shoulder ROM Limitations Muscle Weakness Elbow ROM Limitations Muscle Weakness Wrist Limitations of Range of Motion Muscle Weakness Bed Mobility bed mobility-scooting,bed mobility - supine/sit,bed mobility - rolling Assist Level Contact Guard/Hand Hold Transfer Training Sit/Stand Transfer Assist Level Contact Guard/Hand Hold Chair Transfer Ability Contact Guard/Hand Hold Chair Transfer Technique Sit to/from Ambulatory Chair Transfer Assistive Devices Rolling Walker Rehab OT IP prob,goals,plan Problems Date of Evaluation: 02/21/22 OT IP Problems Bed Mobility
[2022-02-21 11:45] LABS: POC Glucose,Bedside 184 (70-110)
--- NOTE | 2022-02-21 15:23 | SW/DCPLANNER ---
Addendum entered by Rosemary Huang 02/25/22 09:42: This patient will discharge home today: [facility] will start with IV antibiotic teachings tomorrow along with PT/OT and [facility] will deliver home IV medications this evening. Fernanda aquino/ [facility] is aware that labs will need to be drawn tomorrow. I also called and updated patient's daughter regarding discharge plans. Daughter concurs with all plans. Patient will discharge home today. Addendum entered by Rosemary Huang 02/24/22 15:55: Daughter (Mariana) prefer that patient return home with: home health ([facility]), IV antibiotics from [facility] and services from [facility]. I did offer placement to this patient: patient was quick to refuse this option. I will follow up with Deannesc and [facility] once information is reviewed. Mariana has stated that she will transport this patient home tomorrow. Addendum entered by Rosemary Huang 02/24/22 15:40: Patient information/order is currently at [facility] and [facility]: I will follow up with both once information is reviewed. Plan for this patient is to discharge tomorrow morning. Addendum entered by Rosemary Huang 02/24/22 15:05: I have faxed patient information to Sheila aquino/ [facility] to gather information regarding out of pocket expense. I will speak with patient's daughter once she comes to [facility] this afternoon. Patient could potentially discharge later this afternoon. Addendum entered by Rosemary Huang 02/24/22 13:46: I spoke with patient's daughter regarding the need for IV antibiotics at time of discharge. I explained to daughter different options to receive IV antibiotics: return to [facility] as outpatient, home w/ home health and family assistance or placement. Daughter has requested that she speak with other family members prior to making a decision. I will follow up with daughter this afternoon. PICC line is being placed today. Original Note: I spoke with this patient regarding plans once medically stable for discharge. Patient stated that she resides at home alone and when she feels well she does drive herself. PT/OT evaluated this patient today and recommended home health services. Patient information/order will be faxed to [facility] at time of discharge. Patient stated that she does have home O2 and a rolling walker at home. Patient stated that she usually uses a sleeping machine at home but due to recall machine is on back order. Patient also expressed an interest in home delivered meals. I did fax patient information to Marisela aquino/ [facility] to see what services are available for this patient. Patient could potentially discharge home over the weekend. I will follow up with [facility] and Rod of home health after discharge.
[2022-02-21 17:08] LABS: POC Glucose,Bedside 113 (70-110)
--- NOTE | 2022-02-21 17:26 | PC.NURSE ---
PT IS RESTING IN BED. TOLERATED SITTING UP IN THE CHAIR FOR A FEW HOURS THIS SHIFT. MEDICATED PER MAR FOR DISCOMFORT. O2 SATURATION HAS MAINTAINED 90-92% ON 2 L NC. PT HAS BEEN TACHY ON THE TELEMETRY. LUNG SOUNDS HAVE SCATTERED RHONCHI/CRACKLES NOTED TO RLL. ABDOMEN SOFT/NON TENDER WITH ACTIVE BOWEL SOUNDS. PURWICK IN PLACE. WILL CONTINUE TO MONITOR.
--- NOTE | 2022-02-21 18:07 | XR_ITS ---
PROCEDURE INFORMATION: Exam: XR Left Ribs with PA Chest Exam date and time: 02/21/22 06:34 PM Age: 76 years old Clinical indication: Injury or trauma; Fall; Rib area, left side; Blunt trauma; Additional info: Left rib pain, fall before admission TECHNIQUE: Imaging protocol: XR Left ribs with PA chest. Views: 3 views COMPARISON: CR XR CHEST PORTABLE 02/19/22 09:23 PM FINDINGS: Lungs: Unremarkable. No consolidation. Pleural spaces: Unremarkable. No pleural effusion. No pneumothorax. Heart/Mediastinum: Unremarkable. No cardiomegaly. Bones/joints: Severe osseous demineralization limits the study. IMPRESSION: 1. No acute fracture identified. 2. Demineralization limits evaluation.
[2022-02-21 21:34] LABS: POC Glucose,Bedside 133 (70-110)
[2022-02-22] VITALS (19 sets, daily range): BP systolic 91–163; BP diastolic 49–75; PULSE 90–152; RESP 20–38; TEMP 36.7–37.5; O2SAT 84–100; BMI 34.7
[2022-02-22 06:36] LABS: POC Glucose,Bedside 125 (70-110)
--- NOTE | 2022-02-22 07:06 | PC.NURSE ---
Pt a + o x4. Pt has c/o pain in left side 2x t/o shift. PRN pain medication administered per NOV, pt states favorable results. Pt has been tachycardic t/o shift with HR 110-139. aware. Call light within reach.
[2022-02-22 07:40] LABS: Chloride 107 mmol/L (98-107); Sodium 140 mmol/L (136-145)
[2022-02-22 07:41] LABS: Potassium 4.8 mmoL/L (3.5-5.1)
[2022-02-22 07:43] LABS: Blood Urea Nitrogen 22 mg/dl (7-17); Creatinine Clearance Estimated 68 mL/min (50-200); Estimated Glomerular Filt Rate 61 ml/min (>60); GFR (African American) 74 ML/MIN (>60)
[2022-02-22 07:44] LABS: Anion Gap 8.8 mEq/L (5-15); Calcium 8.9 mg/dl (8.4-10.2); Carbon Dioxide 29 mmol/L (22.0-30.0); Glucose 137 mg/dl (74-100); Magnesium 1.8 mg/dl (1.6-2.3)
[2022-02-22 08:02] LABS: Basophils # 0.1 K/mm3 (0-0.2); Basophils % 0.6 % (0.1-2.0); Eosinophils # 0.2 K/mm3 (0.0-0.4); Eosinophils % 1.1 % (0.1-12.0); Hematocrit 31.5 % (37.0-47.0); Hemoglobin 9.9 g/dL (12.2-16.2); Lymphocytes # 2.1 K/mm3 (0.7-4.5); Mean Corpuscular HGB Conc 31.4 g/dL (31.8-35.4); Mean Corpuscular Hemoglobin 25.2 pg (27.0-31.2); Mean Corpuscular Volume 80.3 fl (81-99); Mean Platelet Volume 9.9 fl (7.4-10.4); Monocytes # 1.1 K/mm3 (0.1-1.0); Monocytes % 7.6 % (1.7-9.3); Neutrophils # 10.6 K/mm3 (1.8-7.8); Neutrophils % 75.8 % (37.0-80.0); Platelet Count 346 K/mm3 (142-424); Red Blood Count 3.92 M/mm3 (4.20-5.40); Red Cell Distribution Width 17.8 % (11.5-17.5)
--- NOTE | 2022-02-22 08:51 | ECG_ITS ---
APPROVED REPORT Exam: Resting ECG HR:163 bpm ECG Measurements Heart Rate 163 AXES QRSd 73 QRS 56 QT 252 T 63 QTc 342 Conclusion ATRIAL FIBRILLATION WITH RAPID VENTRICULAR RESPONSE MODERATE ST DEPRESSION [0.05+ mV ST DEPRESSION] CRITICAL TEST RESULT UNCONFIRMED REPORT Electronically signed by : Delvin Newton MD 02/22/2022 20:16:25
--- NOTE | 2022-02-22 09:30 | XR_ITS ---
PROCEDURE INFORMATION: Exam: XR Chest Exam date and time: 02/22/2022 9:44 AM Age: 76 years old Clinical indication: Shortness of breath TECHNIQUE: Imaging protocol: XR of the chest. Views: 1 view. COMPARISON: CR XR RIBS LT MIN 3V W CXR1V 02/21/2022 6:34 PM FINDINGS: Lungs: Patchy airspace consolidation in the right mid and lower lung zones, new since previous. Mild pulmonary vascular congestion. Pleural spaces: Unremarkable. No pleural effusion. No pneumothorax. Heart/Mediastinum: Unremarkable. No cardiomegaly. Bones/joints: Unremarkable. IMPRESSION: 1. Patchy airspace consolidation in the right mid and lower lung zones, new since previous. 2. Mild pulmonary vascular congestion.
[2022-02-22 10:59] LABS: POC Glucose,Bedside 147 (70-110)
--- NOTE | 2022-02-22 11:03 | PC.NURSE ---
physician notified of pt HR being in 150's and rhythm being afib with RVR. order obtained for 5mg metoprolol ivp once and 25 mg metoprolol PO once. pt HR did not improve. HR was 140-150s RR38 BP 120/74, orders were obtained and carried out for 5 mg metoprolol IV again. BP remained stable. orders obtained for chest xray. after report of xray came back,, orders obtained and carried out for lasix 40 mg IVP once. pts hr increased to 150-160 again. physician notified and orders maintained and carried out for 10 mg diltizem IVP once. BP 103/52 after receiving diltizem. HR 124.
--- NOTE | 2022-02-22 12:27 | HMH.ACPN2 ---
Internal Medicine - PN: Subj *Date: 02/22/22 *Time: 21:00 Interval history: Patient was more fatigued this morning on morning rounds. Looks to be slightly more in distress. Remains afebrile and hemodynamically stable. Denies nausea or vomiting. Tolerating good p.o. intake. Stable oxygen requirement of 2 L. Shortly after rounds developed increase respiratory rate and distress, heart rate noted to increase, EKG obtained showing A. fib with RVR. Denies any chest pain, diarrhea, confusion. Family at bedside on afternoon rounds. Discussed progress through the day, progress since admission, and current goals of care/care plan. Exam Vital signs and Labs for Last 24 Hours: Temp Pulse Resp BP Pulse Ox 98.3 F 132 H 32 H 107/55 L 84 L 02/22/22 11:27 02/22/22 11:27 02/22/22 11:27 02/22/22 11:27 02/22/22 11:27 Laboratory Results - last 24 hr 02/21/22 17:01: POC Glucose 113 H 02/21/22 20:45: POC Glucose 133 H 02/22/22 06:11: POC Glucose 125 H 02/22/22 06:42: WBC 14.0 H, RBC 3.92 L, Hgb 9.9 L, Hct 31.5 L, MCV 80.3 L, MCH 25.2 L, MCHC 31.4 L, RDW 17.8 H, Plt Count 346, MPV 9.9, Neut % (Auto) 75.8, Lymph % (Auto) 15.0, [place] % (Auto) 7.6, Eos % (Auto) 1.1, Baso % (Auto) 0.6, Neut # (Auto) 10.6 H, Lymph # (Auto) 2.1, [place] # (Auto) 1.1 H, Eos # (Auto) 0.2, Baso # (Auto) 0.1 02/22/22 06:42: Sodium 140, Potassium 4.8, Chloride 107, Carbon Dioxide 29, Anion Gap 8.8, BUN 22 H D, Creatinine 0.90 D, Estimated Creat Clear 68, Estimated GFR 61, Est GFR ( Amer) 74 D, Glucose 137 H, Calcium 8.9, Magnesium 1.8 D 02/22/22 10:46: POC Glucose 147 H I & O for Last 24 hours: Intake & Output 02/19/22 02/20/22 02/21/22 02/22/22 23:59 23:59 23:59 23:59 Intake Total 2277 / 2277 2066 / 7 120 / 120 Output Total 500 / 500 800 / 950 1700 / 1700 Balance 1777 / 1777 1267 / 1117 -1580 / -1580 Weight 83.915 kg 89 kg 89.04 kg 89.04 kg Narrative: - Constitutional mild distress, obese, Stable saturations in high 90s on 2 L nasal cannula - *Routine HEENT Exam Head: Present: normocephalic Eye: Present: EOMI, PERRL ENT: Present: mucous membranes moist - *Routine Neck Exam Present: supple. Absent: lymphadenopathy - *Routine Respiratory Exam Present: fair air movement bilaterally, crackles in bilateral bases, no wheeze. - *Routine Cardiovascular Exam Present: tachycardia Irregularly irregular - *Routine Abdominal Exam Present: soft, normoactive bowel sounds, tenderness (Mild nonfocal tenderness.) - *Routine Extremities Exam Absent: cyanosis, clubbing, trace BLE edema - *Routine Skin Exam Present: warm. Absent: rash - *Routine Neurological Exam Present: alert, oriented X3 Assessment and Plan (1) Septic shock Status: Acute Category: Medical Code(s): A41.9 - Sepsis, unspecified organism; R65.21 - Severe sepsis with septic shock (2) Atrial fibrillation with RVR Status: Acute Category: Medical Code(s): I48.91 - Unspecified atrial fibrillation (3) Gram-negative bacteremia Status: Acute Category: Medical Code(s): R78.81 - Bacteremia (4) Pyelonephritis Status: Acute Category: Medical Code(s): N12 - Tubulo-interstitial nephritis, not specified as acute or chronic (5) Right ureteral stone Status: Acute Category: Medical Code(s): N20.1 - Calculus of ureter (6) Acute exacerbation of chronic obstructive airways disease Status: Acute Category: Medical Code(s): J44.1 - Chronic obstructive pulmonary disease with (acute) exacerbation (7) Anemia Status: Acute Qualifiers: Anemia type: unspecified type Qualified Code(s): D64.9 - Anemia, unspecified Category: Medical Code(s): D64.9 - Anemia, unspecified (8) Hypothyroidism Status: Acute Qualifiers: Hypothyroidism type: acquired Qualified Code(s): E03.9 - Hypothyroidism, unspecified Category: Medical Code(s): E03.9 - Hypothyroidism, unspecified (9) Obesity (BMI 30-39.9) Status: Acute Category
--- NOTE | 2022-02-22 12:30 | CT_ITS ---
PROCEDURE INFORMATION: Exam: CTA Chest With Contrast Exam date and time: 02/22/2022 1:08 PM Age: 76 years old Clinical indication: Shortness of breath; Additional info: Increased o2 requirement, new onset afib, hypotn. TECHNIQUE: Imaging protocol: Computed tomographic angiography of the chest with contrast. 3D rendering (Not supervised by radiologist): MIP and/or 3D reconstructed images were created by the technologist. Radiation optimization: All CT scans at this facility use at least one of these dose optimization techniques: automated exposure control; mA and/or kV adjustment per patient size (includes targeted exams where dose is matched to clinical indication); or iterative reconstruction. Contrast material: ISOVUE; Contrast volume: 75 ml; Contrast route: INTRAVENOUS (IV); COMPARISON: CT CHEST WO CON 07/24/2021 10:26 AM FINDINGS: Pulmonary arteries: Negative for acute pulmonary embolism. Aorta: Unremarkable. No aortic aneurysm. No aortic dissection. Lungs: Patchy areas of ground-glass density in the upper lobes, particularly the apices. Largest is on the left measuring 2.4 x 2.3 cm. May be infectious or inflammatory process. Mild bibasilar atelectasis, worse on the right. Pleural spaces: Small pleural effusions bilaterally. Heart: Unremarkable. No cardiomegaly. No pericardial effusion. Lymph nodes: Mild mediastinal lymphadenopathy, largest lymph node in the right paratracheal region measures 1.2 cm in short axis. Bones/joints: Unremarkable. No acute fracture. Soft tissues: Unremarkable. IMPRESSION: 1. Negative for acute pulmonary embolism. 2. Patchy areas of ground-glass density in the upper lobes, particularly the apices. Largest is on the left measuring 2.4 x 2.3 cm. May be infectious or inflammatory process. 3. Small pleural effusions bilaterally. 4. Mild bibasilar atelectasis, worse on the right. 5. Mild mediastinal lymphadenopathy, largest lymph node in the right paratracheal region measures 1.2 cm in short axis.
--- NOTE | 2022-02-22 13:59 | PC.NURSE ---
AT 1215 PT'S HR WAS STILL 130-140. NOTIFIED AND HE ORDERED CTA/PE PROTOCOL, LOVENOX 90 MG AND CARDIZEM DRIP. AFTER PT ARRIVED BACK TO THE FLOOR SHE WAS TRANSFERRED TO STEP DOWN. REPORT HAND OFF TO MILIND MORGAN RN.
--- NOTE | 2022-02-22 14:30 | PC.NURSE ---
1415- Cardizem drip started at 5mg/hr at this time, current HR 151, BP 91/63 MAP 76
--- NOTE | 2022-02-22 14:47 | PC.NURSE ---
1445- HR-145, BP 116/60 MAP 80, Cardizem drip titrated up to 10mg/hr at this time
--- NOTE | 2022-02-22 16:23 | PC.NURSE ---
1600- HR 152, BP 125/56 MAP 75, cardizem increased to 15mg/hr
--- NOTE | 2022-02-22 17:15 | ECG_ITS ---
APPROVED REPORT Exam: Resting ECG HR:105 bpm ECG Measurements Heart Rate 105 AXES [place] 140 P 55 QRSd 77 QRS 78 QT 313 T 75 QTc 374 Conclusion SINUS TACHYCARDIA ABNORMAL RHYTHM ECG UNCONFIRMED REPORT Electronically signed by : Delvin Netwon MD 02/22/2022 20:14:48
--- NOTE | 2022-02-22 18:37 | PC.NURSE ---
1700- Patient noted to be in SR per telemetry, obtained EKG at this time for confirmation 1704- EKG revealed SR 1707- Dr Linares notified at this time that patient is in SR 1828- Dr Linares gave order for metoprolol 50mg BID, to give first dose at 1999 and stop drip one hour later
[2022-02-23] VITALS (12 sets, daily range): BP systolic 90–147; BP diastolic 46–77; PULSE 80–105; RESP 20–30; TEMP 36.7–37.2; O2SAT 89–100; BMI 34.7
[2022-02-23 06:01] LABS: POC Glucose,Bedside 137 (70-110)
[2022-02-23 06:01] LABS: POC Glucose,Bedside 121 (70-110)
--- NOTE | 2022-02-23 06:25 | PC.NURSE ---
Pt A&Ox3. Has not c/o any discomfort. Pt has remained NSR on telemetry. HR has been trending up this AM. Currently 102. BP good. O2 sats have ranged from low to high 90s this shift. Rhonchi and wheezing noted to lung [place]. Pt is receiving breathing Tx this AM. Pt given incentive spirometer and encouraged to use it. Education provided. Bed bath given to pt. She tolerated it well. Purewick in place for urine. No BM this shift. No other concerns. Will continue to monitor.
[2022-02-23 07:07] LABS: Basophils # 0.3 K/mm3 (0-0.2); Basophils % 2.5 % (0.1-2.0); Eosinophils # 0.3 K/mm3 (0.0-0.4); Eosinophils % 2.1 % (0.1-12.0); Hematocrit 29.7 % (37.0-47.0); Hemoglobin 9.4 g/dL (12.2-16.2); Lymphocytes # 1.9 K/mm3 (0.7-4.5); Lymphocytes % 15.6 % (10-50); Mean Corpuscular HGB Conc 31.9 g/dL (31.8-35.4); Mean Corpuscular Hemoglobin 25.9 pg (27.0-31.2); Mean Corpuscular Volume 81.2 fl (81-99); Monocytes # 0.9 K/mm3 (0.1-1.0); Monocytes % 7.3 % (1.7-9.3); Neutrophils # 8.8 K/mm3 (1.8-7.8); Neutrophils % 72.6 % (37.0-80.0); Platelet Count 262 K/mm3 (142-424); Red Blood Count 3.65 M/mm3 (4.20-5.40); Red Cell Distribution Width 17.7 % (11.5-17.5); White Blood Count 12.1 K/mm3 (4.8-10.8)
[2022-02-23 07:43] LABS: Chloride 101 mmol/L (98-107); Potassium 4.9 mmoL/L (3.5-5.1); Sodium 138 mmol/L (136-145)
[2022-02-23 07:45] LABS: Alanine Aminotransferase 20 U/L (12-78); Aspartate Amino Transferase 27 U/L (14-36); Blood Urea Nitrogen 18 mg/dl (7-17); Creatinine Clearance Estimated 68 mL/min (50-200); Estimated Glomerular Filt Rate 70 ml/min (>60); GFR (African American) 85 ML/MIN (>60)
[2022-02-23 07:46] LABS: Albumin Level 3.2 g/dl (3.5-5.0); Alkaline Phosphatase 85 U/L (38-126); Anion Gap 9.9 mEq/L (5-15); Bilirubin,Total 0.6 mg/dl (0.2-1.3); Calcium 9.6 mg/dl (8.4-10.2); Carbon Dioxide 32 mmol/L (22.0-30.0); Globulin 3.3 g/dL (1.3-3.2); Glucose 137 mg/dl (74-100); Magnesium 1.5 mg/dl (1.6-2.3); Total Protein,Serum 6.5 g/dl (6.3-8.2)
--- NOTE | 2022-02-23 10:08 | HMH.ACPN2 ---
Internal Medicine - PN: Subj *Date: 02/23/22 *Time: 12:13 Interval history: Did well overnight. Converted to sinus rhythm. Transition to oral metoprolol. Stable on 2 L nasal cannula oxygen. Labs at baseline this morning. Cultures returned with sensitivity to Meropenem or Bactrim. Family at bedside, updated of plan. Patient denies any shortness of breath, chest pain nausea or vomiting. Has not had a bowel movement since admission. states she feels better Exam Vital signs and Labs for Last 24 Hours: Temp Pulse Resp BP Pulse Ox 98.0 F 103 H 30 H 131/64 90 L 02/23/22 08:00 02/23/22 06:10 02/23/22 06:00 02/23/22 06:00 02/23/22 06:10 Laboratory Results - last 24 hr 02/22/22 10:46: POC Glucose 147 H 02/22/22 20:50: POC Glucose 121 H 02/23/22 05:21: POC Glucose 137 H 02/23/22 06:40: WBC 12.1 H, RBC 3.65 L, Hgb 9.4 L, Hct 29.7 L, MCV 81.2, MCH 25.9 L, MCHC 31.9, RDW 17.7 H, Plt Count 262, MPV 9.0, Neut % (Auto) 72.6, Lymph % (Auto) 15.6, [place] % (Auto) 7.3, Eos % (Auto) 2.1, Baso % (Auto) 2.5 H, Neut # (Auto) 8.8 H, Lymph # (Auto) 1.9, [place] # (Auto) 0.9, Eos # (Auto) 0.3, Baso # (Auto) 0.3 H 02/23/22 06:40: Sodium 138, Potassium 4.9, Chloride 101, Carbon Dioxide 32 H, Anion Gap 9.9, BUN 18 H, Creatinine 0.80, Estimated Creat Clear 68, Estimated GFR 70, Est GFR ( Amer) 85, Glucose 137 H, Calcium 9.6, Magnesium 1.5 L D, Total Bilirubin 0.6, AST 27 D, ALT 20, Alkaline Phosphatase 85, Total Protein 6.5, Albumin 3.2 L, Globulin 3.3 H, Albumin/Globulin Ratio 1.0 L I & O for Last 24 hours: Intake & Output 06/09/22 06/10/22 06/11/22 06/12/22 23:59 23:59 23:59 23:59 Intake Total 2277 / 2277 2067 / 2067 477 / 477 Output Total 500 / 500 800 / 950 2400 / 2400 Balance 1777 / 1777 1267 / 1117 -1923 / -1923 Weight 89 kg 89.04 kg 89.04 kg 89.018 kg Microbiology Reports for the Last 24 Hours: Microbiology 02/19/22 22:20 Urine,Catheterized Urine Culture - Preliminary 02/19/22 20:55 Blood Blood Culture - Preliminary Enterobacter cloacae 02/19/22 20:55 Blood Blood Culture - Preliminary Enterobacter cloacae Narrative: - Constitutional NAD on 2L NC, obese - *Routine HEENT Exam Head: Present: normocephalic Eye: Present: EOMI, PERRL ENT: Present: mucous membranes moist - *Routine Neck Exam Present: supple. Absent: lymphadenopathy - *Routine Respiratory Exam Present: fair air movement bilaterally, improved crackles in bilateral bases, no wheeze. - *Routine Cardiovascular Exam Present: RRR, no murmur - *Routine Abdominal Exam Present: soft, normoactive bowel sounds, tenderness (Mild nonfocal tenderness.) - *Routine Extremities Exam Absent: cyanosis, clubbing, trace BLE edema - *Routine Skin Exam Present: warm. Absent: rash - *Routine Neurological Exam Present: alert, oriented X3 Assessment and Plan (1) Septic shock Status: Acute Category: Medical Code(s): A41.9 - Sepsis, unspecified organism; R65.21 - Severe sepsis with septic shock (2) Atrial fibrillation with RVR Status: Acute Category: Medical Code(s): I48.91 - Unspecified atrial fibrillation (3) Gram-negative bacteremia Status: Acute Category: Medical Code(s): R78.81 - Bacteremia (4) Pyelonephritis Status: Acute Category: Medical Code(s): N12 - Tubulo-interstitial nephritis, not specified as acute or chronic (5) Right ureteral stone Status: Acute Category: Medical Code(s): N20.1 - Calculus of ureter (6) Acute exacerbation of chronic obstructive airways disease Status: Acute Category: Medical Code(s): J44.1 - Chronic obstructive pulmonary disease with (acute) exacerbation (7) Anemia Status: Acute Qualifiers: Anemia type: unspecified type Qualified Code(s): D64.9 - Anemia, unspecified Category: Medical Code(s): D64.9 - Anemia, unspecified (8) Hypothyroidism Status: Acute Qualifiers: Hyp
[2022-02-23 21:46] LABS: POC Glucose,Bedside 118 (70-110)
[2022-02-23 21:46] LABS: POC Glucose,Bedside 167 (70-110)
[2022-02-24] VITALS (9 sets, daily range): BP systolic 119–149; BP diastolic 62–86; PULSE 84–100; RESP 21–32; TEMP 36.2–36.9; O2SAT 95–100; BMI 31.1
--- NOTE | 2022-02-24 04:43 | PC.NURSE ---
No complaints stated this shift. Pt has remained NSR on telemetry. BP stable. Pt was RA while awake and placed on 2L O2 NC while sleeping due to decline in sats. Pt wears O2 2L NC also at home. Pt has remained afebrile. Purewick is in place with 600 urine output plus 1 unmeasured void. No BM. New IV placed in RFA #20. No other concerns. Will continue to monitor.
[2022-02-24 05:33] LABS: POC Glucose,Bedside 120 (70-110)
[2022-02-24 06:30] LABS: Chloride 97 mmol/L (98-107); Sodium 139 mmol/L (136-145)
[2022-02-24 06:33] LABS: Alanine Aminotransferase 28 U/L (12-78); Albumin Level 3.5 g/dl (3.5-5.0); Albumin/Globulin Ratio 1.1 (1.1-1.8); Alkaline Phosphatase 95 U/L (38-126); Aspartate Amino Transferase 37 U/L (14-36); Bilirubin,Total 0.6 mg/dl (0.2-1.3); Blood Urea Nitrogen 21 mg/dl (7-17); Calcium 9.4 mg/dl (8.4-10.2); Carbon Dioxide 38 mmol/L (22.0-30.0); Creatinine Clearance Estimated 61 mL/min (50-200); Estimated Glomerular Filt Rate 70 ml/min (>60); GFR (African American) 85 ML/MIN (>60); Globulin 3.3 g/dL (1.3-3.2); Glucose 129 mg/dl (74-100); Total Protein,Serum 6.8 g/dl (6.3-8.2)
[2022-02-24 06:34] LABS: Magnesium 1.5 mg/dl (1.6-2.3)
[2022-02-24 06:42] LABS: Basophils # 0.1 K/mm3 (0-0.2); Basophils % 0.5 % (0.1-2.0); Eosinophils # 0.3 K/mm3 (0.0-0.4); Hematocrit 31.8 % (37.0-47.0); Hemoglobin 10.2 g/dL (12.2-16.2); Lymphocytes # 2.8 K/mm3 (0.7-4.5); Lymphocytes % 26.4 % (10-50); Mean Corpuscular Volume 78.1 fl (81-99); Monocytes % 9.3 % (1.7-9.3); Neutrophils # 6.5 K/mm3 (1.8-7.8); Neutrophils % 60.8 % (37.0-80.0); Platelet Count 349 K/mm3 (142-424); Red Blood Count 4.08 M/mm3 (4.20-5.40); Red Cell Distribution Width 16.2 % (11.5-17.5); White Blood Count 10.7 K/mm3 (4.8-10.8)
--- NOTE | 2022-02-24 07:00 | CA_ITS ---
APPROVED REPORT EXAM: Comprehensive 2D, Doppler, and color-flow Echocardiogram Leather Cutter: Bruna De León CRT Ht: 5 ft 2 in Wt: 196lbs BSA: 1.90 BP: 110/72 mmHg Indications: pt fell sore ribs on the left, new afib, cad, HTN, HLD, home o2 2D Dimensions LVOT 2.10 cm (M/F) 1.5-2.5 M-Mode Dimensions RVDd 2.96 cm (0.9-2.6) LA Diam 4.27 cm (1.9-4.0) LVDd 5.06 cm (3.5-5.7) Ao Diam 3.99 cm (2.0-3.7) LVDs 3.27 cm (3.5-5.7) IVSd 1.29 cm (0.6-1.1) PWd 0.57 cm (0.6-1.1) EF (Teich) 59.00% FS 31.70% EDV (Teich) 160.70 mL TAPSE 2.02 (<1.7) ESV (Teich) 65.90 mL LV Diastology E Decel Time 130.00 (160-240 msec) E/A Ratio 0.87 MED E' 7.80 (< 7 cm/sec) MED A' 13.60 cm/s E'/MED E' Ratio 9.90 (>14) LAT E' 11.10 (<10 cm/sec) LAT A' 9.40 cm/s E/LAT E' Ratio 6.95 (>14) Aortic Valve AO Peak GR. 7.80 mmHg Mitral Valve MV A Velocity 88.00 (40-130 cm/s) E/A Ratio 0.87 MV Decel. Time 130.00 (160-240 ms) Pulmonary Valve PV Peak Velocity 90.00 (50-150 cm/s) Tricuspid Valve TR P. Velocity 267.00 cm/s RAP Estimate 10.00 mmHg RVSP 38.50 mmHg Left Ventricle Technically difficult study because of the patient factors and poor acoustic windows. Left atrium is mildly enlarged, left ventricle is normal size, mild concentric left ventricular hypertrophy, estimated ejection fraction from the obtained views is 55% with no regional wall motion abnormality in the obtained views. Diastolic parameters are inconclusive. Right Ventricle Right atrium and right ventricle are mildly enlarged with normal contractility. Aortic Valve Aortic valve is minimally thickened and calcified without aortic stenosis or aortic insufficiency. Mitral Valve Mitral valve leaflets are minimally thickened, there is mild mitral regurgitation. Tricuspid Valve Tricuspid valve grossly normal, there is mild tricuspid regurgitation, tricuspid regurgitation jet velocity is inadequate for calculation of the right ventricular systolic pressure. Pulmonic Valve Pulmonic valve is poorly visualized. Great Vessels Aortic root is normal size. Inferior vena cava is poorly visualized. Pericardium No significant pericardial effusion noted. Conclusion 1. Mild biatrial enlargement, normal left ventricular size, mild concentric left ventricular hypertrophy, estimated ejection fraction in the obtained views is approximately 55% with no regional wall motion abnormality, diastolic parameters are inconclusive. 2. Mildly enlarged right ventricle with normal contractility. 3. Mild mitral and tricuspid regurgitation. 4. No significant pericardial effusion. 5. Inferior vena cava is poorly visualized. Electronically signed by : Ronal Perez MD 02/24/2022 14:27:24
--- NOTE | 2022-02-24 08:00 | XR_ITS ---
FINAL REPORT CLINICAL HISTORY: Confirm PICC line placement COMPARISON: February 22, 2022 FINDINGS: A new left PICC line terminates at the cavoatrial junction. The heart size is normal. The mediastinum is normal. There are worsening bibasilar opacities favoring atelectasis. There are small pleural effusions. There is improved aeration of the right mid lung. There is no pneumothorax. There is no osseous abnormality. IMPRESSION: Left-sided PICC line terminates near the cavoatrial junction. Worsening bibasilar opacities favoring atelectasis. Reviewed, Interpreted and Dictated by Ghulam Ramirez III, MD Transcribed by Timmy Devries Authenticated and [facility]
--- NOTE | 2022-02-24 08:36 | HMH.ACPN2 ---
Internal Medicine - PN: Subj *Date: 02/24/22 *Time: 08:37 Interval history: Overnight patient has remained in sinus rhythm. Feels tired this morning but notes that I am not a morning person. Denies pain, chest pain or breathing problems. Exam Vital signs and Labs for Last 24 Hours: Temp Pulse Resp BP Pulse Ox 97.1 F L 95 H 32 H 135/72 100 02/24/22 08:00 02/24/22 08:00 02/24/22 08:00 02/24/22 08:00 02/24/22 08:00 Laboratory Results - last 24 hr 02/23/22 11:55: POC Glucose 167 H 02/23/22 21:25: POC Glucose 118 H 02/24/22 05:13: POC Glucose 120 H 02/24/22 05:28: WBC 10.7, RBC 4.08 L, Hgb 10.2 L, Hct 31.8 L, MCV 78.1 L, MCH 25.0 L, MCHC 32.0, RDW 16.2, Plt Count 349 D, MPV 8.0, Neut % (Auto) 60.8, Lymph % (Auto) 26.4, [place] % (Auto) 9.3, Eos % (Auto) 3.0, Baso % (Auto) 0.5, Neut # (Auto) 6.5, Lymph # (Auto) 2.8, [place] # (Auto) 1.0, Eos # (Auto) 0.3, Baso # (Auto) 0.1 02/24/22 05:28: Sodium 139, Potassium 4.0, Chloride 97 L, Carbon Dioxide 38 H, Anion Gap 8.0, BUN 21 H, Creatinine 0.80, Estimated Creat Clear 61, Estimated GFR 70, Est GFR ( Amer) 85, Glucose 129 H, Calcium 9.4, Magnesium 1.5 L, Total Bilirubin 0.6, AST 37 H D, ALT 28 D, Alkaline Phosphatase 95, Total Protein 6.8, Albumin 3.5, Globulin 3.3 H, Albumin/Globulin Ratio 1.1 I & O for Last 24 hours: Intake & Output 02/21/22 02/22/22 02/23/22 02/24/22 11:59 11:59 11:59 11:59 Intake Total 3713 / 3713 240 / 240 357 / 357 650 / 650 Output Total 500 / 500 1200 / 1200 2000 / 1999 1600 / 1600 Balance 3213 / 3213 -960 / -960 -1643 / -1643 -950 / -950 Weight 196 lb 4.8 oz 196 lb 4.793 oz 196 lb 4 oz 175 lb 12.8 oz Microbiology Reports for the Last 24 Hours: Microbiology 02/19/22 20:55 Blood Blood Culture - Final Enterobacter cloacae Narrative: Patient is pleasant, talkative, alert and oriented. Lungs have good air movement, heart rate regular. Abdomen soft, no delirium or clubbing. Telemetry sinus rhythm noted. Assessment and Plan (1) Septic shock Status: Acute Category: Medical Code(s): A41.9 - Sepsis, unspecified organism; R65.21 - Severe sepsis with septic shock (2) Atrial fibrillation with RVR Status: Acute Category: Medical Code(s): I48.91 - Unspecified atrial fibrillation (3) Gram-negative bacteremia Status: Acute Category: Medical Code(s): R78.81 - Bacteremia (4) Pyelonephritis Status: Acute Category: Medical Code(s): N12 - Tubulo-interstitial nephritis, not specified as acute or chronic (5) Right ureteral stone Status: Acute Category: Medical Code(s): N20.1 - Calculus of ureter (6) Acute exacerbation of chronic obstructive airways disease Status: Acute Category: Medical Code(s): J44.1 - Chronic obstructive pulmonary disease with (acute) exacerbation (7) Anemia Status: Acute Qualifiers: Anemia type: unspecified type Qualified Code(s): D64.9 - Anemia, unspecified Category: Medical Code(s): D64.9 - Anemia, unspecified (8) Hypothyroidism Status: Acute Qualifiers: Hypothyroidism type: acquired Qualified Code(s): E03.9 - Hypothyroidism, unspecified Category: Medical Code(s): E03.9 - Hypothyroidism, unspecified (9) Obesity (BMI 30-39.9) Status: Acute Category: Medical Code(s): E66.9 - Obesity, unspecified (10) Chronic hypoxemic respiratory failure Status: Chronic Category: Medical Code(s): J96.11 - Chronic respiratory failure with hypoxia (11) Hyperkalemia Status: Acute Category: Medical Code(s): E87.5 - Hyperkalemia - Assessment and plan all Dx Assessment and Plan for all problems:: Septic shock-shock is resolved. Continue meropenem for Enterobacter infection. PICC line will be placed today, we will plan for a total of 2 weeks of antibiotics. patient financial services coordinator is working on outpatient antibiotic infusion. Currently in sinus rhythm. No changes in cardiac medication, on beta-blockers
[2022-02-24 09:33] LABS: T4 (Thyroxine) 8.8 ug/dl (5.53-11.0)
[2022-02-24 09:47] LABS: Thyroid Stimulating Hormone 0.76 uIU/mL (0.465-4.68)
--- NOTE | 2022-02-24 10:41 | DIET.NUTRFU ---
RD reviewed meal intake, only consuming 25% of meals. Added glucerna in BID to help meet nutritional needs if consumed. direct support worker did speak with in regards to meals at home.
[2022-02-24 11:34] LABS: POC Glucose,Bedside 119 (70-110)
--- NOTE | 2022-02-24 13:39 | HMH.PHACONS ---
- Pharmacy Consult Date: 02/24/22 Time: 13:39 Referring provider: DR. AGUDELO Reason for Consult:: TOBRAMYCIN DOSING Allergies and ADEs:: Allergies Allergy/AdvReac Type Severity Reaction Status Date / Time aripiprazole [From ABILIFY] Allergy Unknown Unknown Verified 02/07/22 14:18 allergy reaction ciprofloxacin [CIPROFLOXACIN] Allergy Unknown Unknown Verified 02/07/22 14:18 allergy reaction phenazopyridine Allergy Unknown Unknown Verified 02/07/22 14:18 [PHENAZOPYRIDINE] allergy reaction Home Medications:: Home Medications Medication Instructions Recorded Confirmed Type gabapentin 300 mg capsule 900 mg PO HS 10/06/17 02/20/22 History alprazolam 1 mg tablet 1 mg PO TIDP PRN tab 08/24/18 02/20/22 History omeprazole 40 mg capsule,delayed 40 mg PO BID cap 08/24/18 02/20/22 History release Levalbuterol Tartrate 2 puff IH Q4H 02/07/19 02/20/22 History [Levalbuterol Tartrate Hfa] Milnacipran HCl [Savella] 100 mg PO BID 02/07/19 02/20/22 History lisinopriL [Lisinopril 2.5mg Tab] 2.5 mg PO DAILY 02/07/19 02/20/22 History Rosuvastatin Calcium 20 mg PO HS 02/08/19 02/20/22 History Amitriptyline HCl [Elavil 25mg 25 mg PO HS 02/26/19 02/20/22 History tablet] alendronate 70 mg tablet 70 mg PO WEEKLY tab 10/11/20 02/20/22 History levocetirizine 5 mg tablet 5 mg PO DAILY tab 10/11/20 02/20/22 History Bethanechol Chloride [Urecholine 25 mg PO TID 12/18/20 02/20/22 History 25mg Tablet] Cyclobenzaprine HCl 5 mg PO HS 12/18/20 02/20/22 History [Cyclobenzaprine 5mg Tab*] Furosemide [Furosemide 40MG tAB*] 40 mg PO DAILY 12/18/20 02/20/22 History Levothyroxine Sodium 125 mcg PO DAILY 12/18/20 02/20/22 History [Levothyroxine 125mcg (0.125mg) Tab] Metformin HCl [Metformin HCl ER] 500 mg PO BID 12/18/20 02/20/22 History Montelukast Sodium 10 mg PO HS 12/18/20 02/20/22 History Sitagliptin Phosphate [Januvia 100 mg PO DAILY 12/18/20 02/20/22 History 100mg tablet] Aspirin [Low Dose Aspirin EC] 81 mg PO DAILY 04/11/21 02/20/22 History Mirabegron [Myrbetriq] 50 mg PO DAILY 12/23/21 02/20/22 History bisoproloL fumarate [Bisoprolol 10 mg PO HS 12/23/21 02/20/22 History Fumarate] Meloxicam 15 mg PO DAILY 12/27/21 02/20/22 History Cefdinir [Omnicef 300mg Capsule] 300 mg PO BID #20 cap 02/18/22 02/20/22 Rx Ondansetron [Zofran 4mg ODT] 4 mg PO TIDP PRN #12 tab 02/18/22 02/20/22 Rx Oxycodone HCl/Acetaminophen 1 tab PO Q6H PRN #12 tab 02/18/22 02/20/22 Rx [Percocet 5/325mg tablet] Albuterol Sulfate [Albuterol 2 puff IH Q6HP PRN 02/20/22 02/20/22 History Sulfate Hfa] Ergocalciferol (Vitamin D2) 50,000 units PO WEEKLY 02/20/22 02/20/22 History [Drisdol 50,000 units (1.25mg) capsule] Potassium Chloride [Klor-Con 10mEq 10 meq PO DIRECTED 02/20/22 02/20/22 History tablet] Height: 1.6 m Weight: 79.742 kg Laboratory Results:: Laboratory Results - last 24 hr 02/23/22 11:55: POC Glucose 167 H 02/23/22 21:25: POC Glucose 118 H 02/24/22 05:13: POC Glucose 120 H 02/24/22 05:28: WBC 10.7, RBC 4.08 L, Hgb 10.2 L, Hct 31.8 L, MCV 78.1 L, MCH 25.0 L, MCHC 32.0, RDW 16.2, Plt Count 349 D, MPV 8.0, Neut % (Auto) 60.8, Lymph % (Auto) 26.4, Spink % (Auto) 9.3, Eos % (Auto) 3.0, Baso % (Auto) 0.5, Neut # (Auto) 6.5, Lymph # (Auto) 2.8, Spink # (Auto) 1.0, Eos # (Auto) 0.3, Baso # (Auto) 0.1 02/24/22 05:28: Sodium 139, Potassium 4.0, Chloride 97 L, Carbon Dioxide 38 H, Anion Gap 8.0, BUN 21 H, Creatinine 0.80, Estimated Creat Clear 61, Estimated GFR 70, Est GFR ( Amer) 85, Glucose 129 H, Calcium 9.4, Magnesium 1.5 L, Total Bilirubin 0.6, AST 37 H D, ALT 28 D, Alkaline Phosphatase 95, Total Protein 6.8, Albumin 3.5, Globulin 3.3 H, Albumin/Globulin Ratio 1.1 02/24/22 05:28: TSH 0.76, Thyroxine (T4) 8.8 02/24/22 11:26: POC Glucose 119 H Medical History: Reports:: Anxiety, Asthma, Chronic Obstructive Pulmonary Disease (COPD), Coronary Artery Disease, Deep Vein Thrombosis, D
--- NOTE | 2022-02-24 14:32 | PC.NURSE ---
rounded on patient no concerns regarding plan of care or medications. did ask about options to take for a sore throat and was educated on some things. also relayed to primary nurse. patient offered a bath and stated she wished to hold off, she thought she may get to go home.
[2022-02-24 16:44] LABS: POC Glucose,Bedside 121 (70-110)
[2022-02-24 21:22] LABS: POC Glucose,Bedside 111 (70-110)
[2022-02-25] VITALS: BP 154/91; PULSE 82; PULSE 85; RESP 20; TEMP 36.8; O2SAT 98
[2022-02-25 04:00] VITALS: BP 140/85; PULSE 85; PULSE 90; RESP 16; TEMP 36.7; O2SAT 100
[2022-02-25 05:00] VITALS: BMI 31.4
--- NOTE | 2022-02-25 05:37 | PC.NURSE ---
pt has rested well this shift, no complaints of pain or SOA, remains on room air with O2 sats 97-100%, HR 82-100, telemetry shows NSR
[2022-02-25 06:11] VITALS: PULSE 87; PULSE 91; O2SAT 100
[2022-02-25 06:37] LABS: POC Glucose,Bedside 141 (70-110)
[2022-02-25 06:52] LABS: Basophils # 0.1 K/mm3 (0-0.2); Basophils % 0.8 % (0.1-2.0); Eosinophils # 0.3 K/mm3 (0.0-0.4); Eosinophils % 2.5 % (0.1-12.0); Hematocrit 32.6 % (37.0-47.0); Hemoglobin 10.5 g/dL (12.2-16.2); Lymphocytes # 3.2 K/mm3 (0.7-4.5); Lymphocytes % 28.9 % (10-50); Mean Corpuscular HGB Conc 32.2 g/dL (31.8-35.4); Mean Corpuscular Hemoglobin 25.2 pg (27.0-31.2); Mean Corpuscular Volume 78.4 fl (81-99); Mean Platelet Volume 8.7 fl (7.4-10.4); Monocytes % 9.5 % (1.7-9.3); Neutrophils # 6.4 K/mm3 (1.8-7.8); Neutrophils % 58.3 % (37.0-80.0); Platelet Count 514 K/mm3 (142-424); Red Blood Count 4.15 M/mm3 (4.20-5.40); Red Cell Distribution Width 17.6 % (11.5-17.5); White Blood Count 10.9 K/mm3 (4.8-10.8)
[2022-02-25 06:54] LABS: Chloride 96 mmol/L (98-107); Potassium 3.7 mmoL/L (3.5-5.1); Sodium 138 mmol/L (136-145)
[2022-02-25 06:56] LABS: Alanine Aminotransferase 32 U/L (12-78); Aspartate Amino Transferase 51 U/L (14-36); Blood Urea Nitrogen 19 mg/dl (7-17); Creatinine Clearance Estimated 62 mL/min (50-200); Estimated Glomerular Filt Rate 70 ml/min (>60); GFR (African American) 85 ML/MIN (>60)
[2022-02-25 06:57] LABS: Albumin Level 3.5 g/dl (3.5-5.0); Alkaline Phosphatase 101 U/L (38-126); Anion Gap 10.7 mEq/L (5-15); Bilirubin,Total 0.5 mg/dl (0.2-1.3); Calcium 9.2 mg/dl (8.4-10.2); Carbon Dioxide 35 mmol/L (22.0-30.0); Globulin 3.6 g/dL (1.3-3.2); Glucose 128 mg/dl (74-100); Magnesium 1.9 mg/dl (1.6-2.3); Total Protein,Serum 7.1 g/dl (6.3-8.2)
--- NOTE | 2022-02-25 07:23 | HMH.DCSUM ---
General - General Admission date:: 02/20/22 Discharge date: 02/25/22 HPI HPI: Ms. Lema is a 76-year-old female with complex past medical history numerous comorbidities who presented to the ER with weakness after being found down at home. She is brought in by EMS. Of note has recent history in the past few days of diagnosis of kidney stone with referral to urology at [facility]. Had not followed up with them yet. On arrival was complaining of left rib pain, weakness, fatigue. She denied clarke chest pain, nausea or vomiting. Work-up was initiated because of initial finding of tachycardia, hypotension, increased oxygen requirement. Labs positive for UTI, severe leukocytosis, acute kidney injury. Meeting criteria for septic shock as she did not respond well to initial fluid resuscitation and antibiotics. Necessitated initiation of norepinephrine. Able to achieve improved hemodynamics on Levophed drip. Initiated on sepsis protocol with fluids and antibiotics. Admitted to medicine for further management of her septic shock. Consult placed for urology. On exam this morning she states she is feeling a little bit better. Is alert and oriented to person and place. Gives a good recount of her recent history. Is back to her baseline oxygen requirement (2 L). Blood pressure better on exam this morning with ability to wean her norepinephrine down on rounds. Denies any nausea or vomiting. Of note did not eat breakfast and has not had anything to drink since before midnight. Hospital Course Hospital Course: Mrs. Lema is a 76-year-old female who presented with septic shock secondary to obstructing ureteral stone and suspected pyelonephritis. Has had a mechanical course. Status postintervention by urology in the, stent in place, stone removed. She is remained on broad-spectrum antibiotics with effervescence of results of symptoms. Developed A. fib yesterday and has since converted after initiation of diltiazem drip back to sinus rhythm. Tolerating chemotherapy with metoprolol. Overall feeling better, meeting discharge criteria. Hemodynamically stable, on RA. Problems addressed as follows: Septic shock Pyelonephritis COPD exacerbation -Secondary to obstructing nephrolithiasis. Culture positive for E. cloacae, sensitive to Bactrim, tobramycin, and meropenem. Given bacteremia, transitioned to Tobramycin for ease of dosing. Will continue through 03/05/22 for total of 14 days of antibiotic therapy. PICC line to be placed 02/24/22. Urology consulted, appreciate their assistance during admission. A. fib with RVR Volume overload -Initiated on diltiazem drip. Converted to sinus rhythm, transitioned to oral metoprolol. Increased dosage to 75mg BID. Continue with evaluation in outpatient setting. Echocardiogram obtained, LVEF 55%. Initiated prophylactic anticoagulation, consider need for continued anticoagulation at follow-up. Diuresed daily as needed, responded well so far TENA Obstructing nephrolithiasis -Urology consulted, appreciate their recommendations. Stone removed and stent placed. Overall feeling better from a urologic standpoint, pain resolved. Creatinine normalized to baseline. Holding home antihypertensives. Resumed home levothyroxine. Resumed Home medications for chronic pain and anxiety. Resumed at lower doses. Monitor for altered mentation and confusion. Able for discharge home. Examined on day of discharge. Objective Vital signs: Temp Pulse Resp BP Pulse Ox 98.1 F 87 16 140/85 100 02/25/22 04:00 02/25/22 06:11 02/25/22 04:00 02/25/22 04:00 02/25/22 06:11 Narrative: - Constitutional NAD on RA, obese - *Routine HEENT Exam Head: Present: normocephalic Eye: Present: EOMI, PERRL ENT: Present: mucous membranes moist - *Routine Neck Exam Present: supple. Absent: lymphadenopathy - *Routine Respiratory Exam Present: fair air movement bilaterally, no crackles
[2022-02-25 08:00] VITALS: BP 137/77; PULSE 90; PULSE 96; RESP 16; TEMP 36.8; O2SAT 100
[2022-02-25 08:38] LABS: Tobramycin,Random 1.2 ug/ml
--- NOTE | 2022-02-25 10:28 | HMH.PHAINT ---
DISCHARGE MEDICATION COUNSELING PROVIDED. DISCUSSED STOPPING THE FOLLOWING: LISINOPRIL, BISOPROLOL, ZOFRAN, CEFDINIR. DISCUSSED THE SHORT-COURSE TOBRAMYCIN (WATCH FOR HEARING DIFFICULTY/LOSS, UPSET STOMACH/DIARRHEA) AND METOPROLOL (WATCH FOR DIZZINESS/LIGHTHEADEDNESS, HEADACHE) PATIENT ENDORSED NO QUESTIONS AT THIS TIME.
--- NOTE | 2022-02-26 16:44 | CARE MANAGER ---
Called and spoke with patient to discuss post discharge status. Patient stated that home health has been there and she has started her home antibiotic infusions. She also stated that she is feeling better and wanted us to know that she was very happy with her care while in this facility.
[2022-03-20 15:33] LABS: Specimen Type Right Ureter
== END 2022-02-25 10:37 | disposition home health service (06) | DRG 853 ==
LOC: ER 02-20 → 2ND 02-20 01:08
PROVIDERS: Internal Medicine Adolescent Medicine; Urology; Admitting Provider Internal Medicine Adolescent Medicine; Emergency Provider Emergency Medicine; Visit Provider Internal Medicine Adolescent Medicine
PROC: 0TC68ZZ Extirpation of Matter from Right Ureter, Via Natural or Artificial Opening Endoscopic (ICD-10-PCS; principal; 2022-02-20 14:30)
DX: A41.50 Gram-negative sepsis, unspecified (principal); R65.21 Severe sepsis with septic shock; N10 Acute pyelonephritis; N20.1 Calculus of ureter; J44.1 Chronic obstructive pulmonary disease with (acute) exacerbation; J96.11 Chronic respiratory failure with hypoxia; N17.9 Acute kidney failure, unspecified; D64.9 Anemia, unspecified; E03.9 Hypothyroidism, unspecified; E66.9 Obesity, unspecified; Z68.31 Body mass index [BMI] 31.0-31.9, adult; F41.9 Anxiety disorder, unspecified; G89.29 Other chronic pain; E87.5 Hyperkalemia; I48.91 Unspecified atrial fibrillation; E83.42 Hypomagnesemia
CPT/HCPCS: 52320; 52332; 36569; 36415; 70450; 71045; 71101; 71275; 72125; 72170; 74018; 74176; 76000; 80048; 80053; 80200; 81001; 82370; 82550; 82803; 82962; 83605; 83735; 84145; 84436; 84443; 84484; 85007; 85025; 85651; 86140; 87040; 87077; 87086; 87088; 87186; 93005; 93306; 94640; 94761; 97110; 97116; 97162; 97166; 97530; 99285; C1751; C2617; C9803; J0456; J0696; J1956; J2185; J2405; J3475; Q9967; U0003; U0005

== ENCOUNTER → 2022-03-03 17:14 | Outpatient (CLI) | payer MEDICARE, OTHER, SELFPAY ==
[2022-03-03 17:48] LABS: Basophils # 0.1 K/mm3 (0-0.2); Eosinophils # 0.3 K/mm3 (0.0-0.4); Eosinophils % 2.2 % (0.1-12.0); Hematocrit 34.6 % (37.0-47.0); Hemoglobin 10.9 g/dL (12.2-16.2); Lymphocytes # 3.3 K/mm3 (0.7-4.5); Lymphocytes % 28.9 % (10-50); Mean Corpuscular HGB Conc 31.6 g/dL (31.8-35.4); Mean Corpuscular Hemoglobin 25.9 pg (27.0-31.2); Mean Corpuscular Volume 81.9 fl (81-99); Mean Platelet Volume 8.3 fl (7.4-10.4); Monocytes # 0.6 K/mm3 (0.1-1.0); Neutrophils # 7.2 K/mm3 (1.8-7.8); Neutrophils % 62.8 % (37.0-80.0); Platelet Count 548 K/mm3 (142-424); Red Blood Count 4.23 M/mm3 (4.20-5.40); Red Cell Distribution Width 17.9 % (11.5-17.5); White Blood Count 11.4 K/mm3 (4.8-10.8)
[2022-03-03 18:36] LABS: Anion Gap 13.1 mEq/L (5-15); Blood Urea Nitrogen 14 mg/dl (7-17); Calcium 8.7 mg/dl (8.4-10.2); Carbon Dioxide 30 mmol/L (22.0-30.0); Chloride 100 mmol/L (98-107); Estimated Glomerular Filt Rate 54 ml/min (>60); GFR (African American) 65 ML/MIN (>60); Glucose 99 mg/dl (74-100); Potassium 5.1 mmoL/L (3.5-5.1); Sodium 138 mmol/L (136-145)
[2022-03-03 18:44] LABS: C-Reactive Protein 6.4 mg/L (0-4); Tobramycin,Random 6.3 ug/ml
[2022-03-03 19:25] LABS: Erythrocyte Sedimentation Rate 98 mm/hr (0-30)
== END ==
PROVIDERS: PCP Internal Medicine Adolescent Medicine; Visit Provider Internal Medicine Adolescent Medicine
DX: N20.0 Calculus of kidney (principal)
CPT/HCPCS: 80048; 80200; 85025; 85651; 86140

== ENCOUNTER → 2022-04-07 09:48 | Outpatient (POV) | payer MEDICARE, OTHER, SELFPAY ==
[2022-04-07 10:51] VITALS: BP 93/63; PULSE 109; RESP 18; TEMP 36.4; O2SAT 90; BMI 30.4
--- NOTE | 2022-04-07 12:42 | HMH.PAINSOAP ---
[facility] Pain Management SOAP Note Subjective:: Patient is a pleasant 76-year-old female who presents today for follow-up. Patient is currently being treated for degenerative disc disease of lumbar spine with lumbar radiculopathy symptoms, sacroiliitis, mid back pain. We have been managing this patient with injective therapy. She had a bilateral SI injection on January 31, 2022 that provided significant relief. She states that she is complaining more of mid back and low back pain today. She does have severe kyphosis. I did order an updated thoracic MRI for this patient. Thoracic MRI shows multilevel mild degenerative disc disease and spondylosis. There is no focal soft disc protrusion or significant central canal stenosis. Her main complaint today is her mid to low back pain. Pain is worse with lumbar extension and rotation. She previously had a spinal cord stimulator with the Nuvectra system. This was placed a few years ago and was explanted because the pt was not getting significant relief. She has tried and failed conservative therapies in the past such as oral meds, PT, and home exercises > 6 weeks. Rates pain today as 9/10. Eric [id number], MEQ 0. Review of Systems: General: No recent weight changes, no fever, no sleep disturbances Respiratory: No cough, no shortness of air, no recurring pulmonary infections Cardiovascular/peripheral vascular: No chest pain, no palpitations, no edema, no shortness of breath Gastrointestinal: No new onset incontinence, normal bowel movements reported Genitourinary: No new onset incontinence Musculoskeletal: Mid back pain, low back pain Psychiatric: [Normal mood/affect] Neurological: [Denies weakness in extremities], [denies balance issues] Objective:: Physical Exam: General: Alert and oriented x3, no acute distress, pleasant and cooperative Lungs: Respirations even and unlabored, symmetrical chest expansion Eyes: PERRL Musculoskeletal: Flexion and extension of lumbar [spine] somewhat guarded secondary to pain, [antalgic gait noted]; tenderness to palpation around the lumbar facets, positive Kemps Neurological: Speech clear, no gross sensory deficit Assessment:: Degenerative disease of lumbar spine with lumbar radiculopathy symptoms, lumbar facet arthropathy, lumbar spondylosis, sacroiliitis Plan:: Imaging: PROCEDURE: CT LUMBAR SPINE WO CON CLINICAL HISTORY: BACK PAIN Hx of neurostimulator Placement and removal COMPARISON: CT CT ABDOMEN PELVIS WO CON from 12/01/2019 TECHNIQUE: Axial images obtained with sagittal and coronal reformats. All CT scans at the facility use one or more dose reduction, viz: automated exposure control, ma/kV adjustment per patient size (including targeted exams where dose is matched to indication, i.e. head), or iterative reconstruction technique. FINDINGS: There is mild levoscoliosis of the lumbar spine. Multilevel degenerative changes are present as outlined below. There is generalized osteopenia. No acute fracture or dislocation is evident. T11-T12: Degenerative disc disease with mild left-sided facet hypertrophic change and mild left-sided lateral recess narrowing. T12-L1: Minimal loss of height anteriorly of T12 not significantly changed. L1-L2: Unremarkable. L2-L3: Degenerative disc disease. Prominent right lateral bridging osteophytes. Minimal endplate irregularity with Schmorl's nodes with concentric bulging disc and mild right-sided foraminal narrowing from endplate hypertrophic change the prominent right lateral osteophytes is abutting the exiting right L2 nerve root. There is endplate irregularity at L2-L3 which may be degenerative in nature. The disc space is slightly narrowed. L3-L4: Mild concentric bulging disc with degenerative disc disease with endplate osteophytes projecting laterally toward the right along with the bulging disc. There is mild right-sided foraminal narrowing L4-5: Degenerative disc disease with vacuum disc a
== END ==
PROVIDERS: PCP Internal Medicine Adolescent Medicine; Visit Provider Student in an Organized Health Care Education/Training Program
DX: M51.16 Intervertebral disc disorders with radiculopathy, lumbar region (principal); M46.1 Sacroiliitis, not elsewhere classified; M47.26 Other spondylosis with radiculopathy, lumbar region; Z72.0 Tobacco use
CPT/HCPCS: 99212; G0463

== ENCOUNTER → 2022-06-02 13:21 | Outpatient (POV) | payer MEDICARE, OTHER, SELFPAY ==
[2022-06-02 14:13] VITALS: BP 142/74; PULSE 131; RESP 20; TEMP 37; O2SAT 93; BMI 30.4
--- NOTE | 2022-06-02 15:00 | EXP.PAIN.SOA ---
[facility] Pain Management SOAP Note Subjective:: Patient is a pleasant 76-year-old female who presents today for follow-up. We are currently treating the patient for degenerative disc disease of lumbar spine with lumbar radiculopathy symptoms, sacroiliitis, mid back pain. Today the patient rates her pain a 10 out of 10. She states the pain is all in her low back that radiates into her bilateral lower extremities and bilateral shoulders. Patient denies any new trauma or injury. She denies any change to the location or type of pain she experiences. Patient states this is a constant sharp, throbbing sensation that is worse with increased activity. Patient states this interferes with her activities of normal living including simple tasks around the house such as cooking and cleaning and ambulation. Patient has tried injective therapy such as bilateral SI injections, and bilateral hip intra-articular injections in the past that have provided some improvement of her symptoms. She also previously had a spinal cord stimulator with the new iSnapra system however it was explanted with the leads left intact. Patient has tried [id number] Tylenol and Tylenol arthritis with minimal improvement of her symptoms. She also uses ice and heat and topical medications as needed however not providing long-term relief of her symptoms. Patient has seen physical therapy and chiropractor in the past. She states that physical therapy made her pain worse. The last time she saw the chiropractor was last year however she stated it did provide some relief of her symptoms. Patient has recently had a psychiatric evaluation with the intent to do the intrathecal pain pump trial however patient had some second thoughts regarding this. Patient is currently managed with gabapentin 300 mg 3 times a day and alprazolam 1 mg 3 times a day by Dr. Salvador Zamorano. Patient denies any side effects from these medications. She states these medications are adequately helping her pain symptoms. Patient does have a history of falls in the past. her Eric is [phone] with a morphine equivalent of 0. It has been reviewed and appropriate. Review of Systems: General: No recent weight changes, no fever, no sleep disturbances Respiratory: No cough, no shortness of air, no recurring pulmonary infections Cardiovascular/peripheral vascular: No chest pain, no palpitations, no edema, no shortness of breath Gastrointestinal: No new onset incontinence, normal bowel movements reported Genitourinary: No new onset incontinence Musculoskeletal: Bilateral shoulder pain, low back pain, bilateral lower extremity pain Psychiatric: [Normal mood/affect] Neurological: [Denies weakness in extremities], [denies balance issues] Objective:: Physical Exam: General: Alert and oriented x3, no acute distress, pleasant and cooperative Lungs: Respirations even and unlabored, symmetrical chest expansion Eyes: PERRL Musculoskeletal: Flexion and extension of lumbar [spine], bilateral shoulders somewhat guarded secondary to pain, [antalgic gait noted] Neurological: Speech clear, no gross sensory deficit Assessment:: Degenerative disc disease of lumbar spine with lumbar radiculopathy symptoms, sacroiliitis, mid back pain, bilateral shoulder pain Plan:: Patient is having significant worsening pain in her low back that radiates into her bilateral extremities and bilateral shoulder pain. Patient had limited range of motion of her lumbar spine as well as bilateral shoulders. I have discussed with the patient regarding the intrathecal pain pump trial. Risk and benefits were discussed with the patient. She would like to proceed forward with this plan of care. Patient has a recent psychiatric evaluation already on file. Patient has tried and failed other conservative therapy such as oral medications, injective therapies, topical medications, physical therapy, heat and ice, chiropractor, home exercise and stretching for longer than 6 weeks. I will or
== END | disposition home or self-care (01) ==
PROVIDERS: PCP Internal Medicine Adolescent Medicine; Visit Provider Nurse Practitioner Family
DX: M51.16 Intervertebral disc disorders with radiculopathy, lumbar region (principal); M46.1 Sacroiliitis, not elsewhere classified; M25.512 Pain in left shoulder; M25.511 Pain in right shoulder
CPT/HCPCS: 99212; G0463

== ENCOUNTER 2022-06-27 09:06 | Day surgery (SDC) | payer MEDICARE, OTHER, SELFPAY ==
[2022-06-27 09:28] VITALS: BP 130/72; PULSE 101; RESP 20; TEMP 37; O2SAT 90; BMI 30.1
[2022-06-27 11:35] VITALS: BP 109/67; PULSE 98; RESP 18; O2SAT 93
[2022-06-27 11:37] VITALS: BP 140/79; PULSE 96; RESP 18; O2SAT 94
--- NOTE | 2022-06-27 13:05 | PC.NURSE ---
1145-pt returned to [place]. no c/o pain. lumbar dressing c/d/i. VSS 135/64, 105, 20, 93%. no c/o or needs at this time. family at bedside 1154-pt medicated with PRN benadryl for c/o itching 1200-VSS 131/71, 105, 20, 94% on RA. pt provided with coffee at her request. dressing c/d/i, no c/o pain. family remains at bedside 1215-VSS 131/75, 110, 20, 93% on RA. pt without needs or concerns at this time, resting in chair. family at bedside 1230-pt without c/o pain. dressing c/d/i. reports itching has eased. pt ambulated down [address] with SBA only. Gait steady. no c/o pain with ambulation. 1300-VSS 119/67, 106, 20, 94% on RA. pt resting in chair. no c/o pain. family at bedside. 1301-MD at bedside 1310-pt discharge home.
[2022-06-27 13:10] VITALS: BP 119/67; PULSE 106; RESP 20; O2SAT 94
--- NOTE | 2022-06-27 15:05 | P.PCN_ITS ---
Procedure Date: 06/27/22 Time: 15:05 Anesthesiologist:: Benja Hinojosa MD Complications:: None Pre-procedure Diagnosis:: Degenerative disc disease of lumbar spine with lumbar radiculopathy symptoms Post-procedure Diagnosis:: Same Indications for Procedure:: Patient is a pleasant 76-year-old white female who been treating for low back pain with lumbar radiculopathy symptoms. She continues to have increasing pain in her back and some down her legs. She previously had a spinal cord stimulator system which was removed as it was not helping anymore. She has failed all other conservative treatment including injections, oral medications, physical therapy and she is not a candidate for any surgery. Most of her pain is in the back rating down both legs. She does have a good psychological evaluation. She presents for intrathecal pump trial today. Procedure Details:: Pain pump trial Informed consent was obtained and the risk and benefits of the procedure was explained to the patient. The patient was taken to the procedure room and p laced prone on the procedure table. Patient was prepped and draped in sterile fashion. C-arm fluoroscopy was used to view the lumbar spine. The skin and subcutaneous tissues were anesthetized using lidocaine. I placed a 18-gauge spinal needle into the L4-5 interspace and advanced until clear CSF was obtained. After this intrathecal catheter was inserted and advanced very easily to the L1 vertebral body. The needle was withdrawn. We were able to freely withdraw clear CSF through the catheter. We then injected intrathecal fentanyl single shot bolus of 25 mcg followed by saline and followed by the previous CSF that was withdrawn. The needle and catheter were then removed and a Band-Aid was placed. Patient tolerated the procedure well with no complications. We reevaluated the patient after 30 minutes to 1 hour. She was also reassessed by physical therapy. Patient was 80 to 90% better. She is much more functional. She is walking better and standing better. She wants to proceed with permanent placement. We will plan on permanent placement with intrathecal morphine 5 mg/mL to start at 0.25 mg/day. Catheter tip will be at the L1 vertebral body. This will be a Flowonix pain pump. Plan and Disposition:: Patient did very well with her pump trial. We will plan on permanent placement with intrathecal morphine 5 mg/mL to start at 0.25 mg/day. Catheter tip will be at the L1 vertebral body. Again this will be a Flowonix pain pump.
== END 2022-06-27 13:11 | disposition home or self-care (01) ==
LOC: SC.PAINP 09:07
PROVIDERS: PCP Internal Medicine Adolescent Medicine; Visit Provider Anesthesiology
DX: M51.16 Intervertebral disc disorders with radiculopathy, lumbar region (principal)
CPT/HCPCS: 62323; 96365

== ENCOUNTER → 2022-08-21 14:45 | Outpatient (CLI) | payer MEDICARE, MEDICAID, SELFPAY ==
[2022-08-21 15:44] LABS: Basophils # 0.2 K/mm3 (0-0.2); Basophils % 1.2 % (0.1-2.0); Eosinophils # 0.3 K/mm3 (0.0-0.4); Eosinophils % 2.5 % (0.1-12.0); Hematocrit 37.4 % (37.0-47.0); Hemoglobin 11.3 g/dL (12.2-16.2); Lymphocytes # 3.2 K/mm3 (0.7-4.5); Mean Corpuscular HGB Conc 30.1 g/dL (31.8-35.4); Mean Corpuscular Hemoglobin 24.9 pg (27.0-31.2); Mean Corpuscular Volume 82.7 fl (81-99); Monocytes # 0.7 K/mm3 (0.1-1.0); Monocytes % 6.1 % (1.7-9.3); Neutrophils # 7.6 K/mm3 (1.8-7.8); Neutrophils % 63.2 % (37.0-80.0); Platelet Count 573 K/mm3 (142-424); Red Blood Count 4.52 M/mm3 (4.20-5.40); Red Cell Distribution Width 16.2 % (11.5-17.5)
[2022-08-21 15:56] LABS: Anion Gap 15.1 mEq/L (5-15); Blood Urea Nitrogen 11 mg/dl (7-17); Calcium 9.7 mg/dl (8.4-10.2); Carbon Dioxide 31 mmol/L (22.0-30.0); Chloride 99 mmol/L (98-107); Estimated Glomerular Filt Rate 61 ml/min (>60); GFR (African American) 74 ML/MIN (>60); Glucose 116 mg/dl (74-100); Potassium 5.1 mmoL/L (3.5-5.1); Sodium 140 mmol/L (136-145)
[2022-08-21 16:03] LABS: Hemoglobin A1C 6.8 % (4.0-6.0)
[2022-08-21 17:09] LABS: Barbiturates Screen,Urine Negative ng/ml (<200)
[2022-08-21 17:10] LABS: Benzodiazepines Screen,Urine Positive ng/ml (<200)
[2022-08-21 17:11] LABS: Amphetamine/Metha Screen,Urine Negative ng/ml (<1000); Methadone Screen,Urine Negative ng/ml (<300)
[2022-08-21 17:12] LABS: Cannabinoid Screen,Urine Negative ng/ml (<50); Cocaine Screen,Urine Negative ng/ml (<300)
[2022-08-21 17:13] LABS: Opiate Screen,Urine Negative ng/ml (<300)
[2022-08-21 17:14] LABS: Phencyclidine Screen,Urine Negative ng/ml (<25)
== END ==
PROVIDERS: PCP Nurse Practitioner Family; Visit Provider Anesthesiology
DX: Z01.812 Encounter for preprocedural laboratory examination (principal); M51.37 Other intervertebral disc degeneration, lumbosacral region; E11.9 Type 2 diabetes mellitus without complications; Z79.84 Long term (current) use of oral hypoglycemic drugs
CPT/HCPCS: 36415; 80048; 80305; 83036; 85025

== ENCOUNTER 2022-08-22 08:36 | Day surgery (SDC) | payer MEDICARE, MEDICAID, SELFPAY ==
[2022-08-20 12:54] VITALS: BMI 30.6
[2022-08-22 09:08] VITALS: BP 125/75; PULSE 120; RESP 20; TEMP 36.3; O2SAT 93
--- NOTE | 2022-08-22 09:52 | P.PN_ITS ---
[facility] Disclaimer: The information contained in this section may have been updated after the patient was seen, as this information can be updated by other users. Medical History Angina, class IV COPD (chronic obstructive pulmonary disease) Diabetes History of left heart catheterization HLD (hyperlipidemia) Hypothyroid Nephrolithiasis Nonspecific ST-T changes Smoker SOB (shortness of breath) Tachycardia Tobacco abuse Surgical History (Updated 08/22/22 @ 09:07 by Jose James RN) History of bladder surgery History of section History of colon surgery History of spinal surgery History of tonsillectomy Family History Other No significant family history Social History (Updated 08/20/22 @ 12:53 by Jose James RN) Smoking Status: Current every day smoker tobacco type: cigarettes packs per day: 1 second hand exposure: Yes alcohol intake: never counseling provided: provider counseling substance use type: denies use current occupational status: retired Travel in the last 8 weeks: None household members: children housing: house current occupational exposures/hazards: No caffeine: No H Anesthesia Checklist Patient Identification Patient Identification: Verbal (Name & ) Structural Data Admitted From: Home Planned Operative Procedure/s: intrathecal pain pump insertion NPO Status Verified Time NPO: 00:00 Additional verifications Anesthesia Reactions: No Hx Blood Transfusions: No Blood Transfusion Reaction: No Airway Assessment C-Spine Mobility Assessed: Yes TMJ Mobility Assessed: Yes Dentition: Dentures-good fit Neurological Assessment Level of Consciousness: Awake, Alert and Appropriate Anesthesia Plan Anesthesia Risk discussed: Yes Anesthesia Plan: Verified ASA Class: III Anesthesia Type: MAC
[2022-08-22 09:57] LABS: POC Glucose,Bedside 153 (70-110)
[2022-08-22 10:50] VITALS: BP 164/55; PULSE 107; RESP 18; TEMP 36.5; O2SAT 93
[2022-08-22 11:00] VITALS: BP 157/72; PULSE 118; RESP 18; O2SAT 93
[2022-08-22 11:10] VITALS: BP 148/77; PULSE 114; RESP 18; O2SAT 92
--- NOTE | 2022-08-22 11:38 | SUR.PHASEII ---
Verbal order per MD Hinojosa-pt is to continue all current home medications
--- NOTE | 2022-08-22 12:00 | SUR.PHASEII ---
delay in discharge d/t waiting on patient to wake up, family reports patient sleeps hard, and waiting rep to present at bedside. pt c/o soreness, rep informed that that will go away. pt verbalized understanding.
[2022-08-22 12:10] VITALS: BP 136/78; PULSE 100; RESP 18; O2SAT 92
--- NOTE | 2022-08-22 14:07 | P.OP_ITS ---
Date of procedure: 08/22/22 Pre-op Diagnosis:: Degenerative disc disease of lumbar spine with lumbar radiculopathy symptoms Post-op Diagnosis:: Same Procedure performed:: Permanent placement intrathecal pain pump catheter with tunneling and pain pump reservoir placement Surgeon:: Benja Hinojosa MD GAS COMBUSTION ENGINEER:: Koffi Bal Anesthesia: MAC Estimated blood loss (mL): 5 Clinical Note:: This patient is a pleasant 76-year-old white female who we have been treating for low back pain with lumbar radicular symptoms. She has failed all previous conservative treatments including spinal cord stimulation, injections, oral medications and physical therapy. She is not a candidate for any surgery. She has had a good psychological evaluation and had a successful intrathecal pump trial. She presents for permanent placement of her intrathecal pain pump today. Operative findings:: None Operative note:: Informed consent was obtained and the risk and benefits of the procedure was explained to the patient. The patient was taken to the operating room placed prone on the procedure table. She was prepped and draped in sterile fashion. C-arm fluoroscopy was used to view the right flank. The pump pocket was created in the right flank between the 12th rib and the iliac crest. C-arm fluoroscopy was then used to view the lumbar spine. The skin and subcutaneous tissues adjacent to the L4-5 and L5-S1 interspace were anesthetized using lidocaine. I made an incision and dissected down to the lumbar paraspinous fascia. A 17- gauge spinal needle was inserted and advanced very easily to the T9 vertebral body. The stylette and the needle were withdrawn. The catheter was secured to the fascia with anchoring devices and 2-0 Prolene. The pump was filled with 20 mils of intrathecal morphine 1 mg/mL. I tunneled the catheter from the back to the pump pocket and attached catheter to the pump. We were able to freely withdraw clear CSF through the side-port of the pump. Both incisions were irrigated with antibiotic solution. The pump was placed in the pocket. Both incisions were then closed with 2-0 Vicryl followed by dae. Condition: stable Disposition: PACU Complications:: None
== END 2022-08-22 12:10 | disposition home or self-care (01) ==
PROVIDERS: PCP Internal Medicine Adolescent Medicine; Visit Provider Anesthesiology
DX: M51.16 Intervertebral disc disorders with radiculopathy, lumbar region (principal); Z79.899 Other long term (current) drug therapy; Z72.0 Tobacco use
CPT/HCPCS: 62350; 62362; 82962; 96374; C1755; C1772

== ENCOUNTER → 2022-08-28 10:52 | Outpatient (POV) | payer MEDICARE, MEDICAID, SELFPAY ==
--- NOTE | 2022-08-28 11:18 | EXP.PAIN.PRO ---
Procedure Date: 08/28/22 Time: 11:18 Anesthesiologist:: Cathie Benjamin APRN Complications:: None Pre-procedure Diagnosis:: Degenerative disc disease lumbar spine with lumbar radiculopathy symptoms Post-procedure Diagnosis:: Same Indications for Procedure:: Patient is a pleasant 76-year-old female who presents today for 1 week follow-up postop of intrathecal pain pump placement on 08/22/2022. We are currently treating the patient for degenerative disc disease of lumbar spine with lumbar radiculopathy symptoms. Patient rates her pain a 10 out of 10. Patient denies any new trauma or injury. Patient denies any change location or type of pain she experiences. Patient did state that she felt her pain was more related to her wound VAC tubing in combination with the abdominal binder and back brace. Patient is currently managed with gabapentin 300 mg 3 times a day from an outside provider. Patient denies any side effects from this medication. She states this medication does help with her pain symptoms. Patient is currently managed with morphine 1 mg/mL with a daily dose of 0.1 mg/day. Patient denies any side effects to this medication. She states this medication does seem to be helping her pain symptoms. Her Eric is [id number]. Its been reviewed and appropriate. Physical Exam: General: Alert and oriented x3, no acute distress, pleasant and cooperative Lungs: Respirations even and unlabored, symmetrical chest expansion Eyes: PERRL Musculoskeletal: Flexion and extension of lumbar [spine] somewhat guarded secondary to pain, [antalgic gait noted] Neurological: Speech clear, no gross sensory deficit Skin: Incision sites clean, dry, well approximated with no erythema noted Procedure Details:: Informed consent was obtained and the risk and benefits of the procedure were explained to the patient. Patient was taken to the procedure room where noninvasive monitoring was placed including noninvasive blood pressure cuff and pulse oximeter. Patient's pump was interrogated and was reprogrammed to morphine 1 mg/mL with a daily dose of 0.11 mg/day. The patient tolerated the procedure well with no complications. Plan and Disposition:: Patient had her wound VAC removed at today's visit. Her incision site looks well and was clean, dry, well approximated with no erythema noted and her dae are intact. We will plan on having the patient return to clinic in 2 weeks with the intent to remove her dae if indicated. I have counseled the patient that we will plan on using skin glue and Steri-Strips at that visit. Patient has been counseled to continue to use her abdominal binder and maintain restrictions regarding bending, lifting, twisting, submerging in water. Patient will return to clinic in 2 weeks for reevaluation of symptoms and follow-up. Patient has been instructed to contact the clinic with any concerns before the next appointment. Dr. Hinojosa has reviewed this note and agrees with this plan of care. This note was dictated using voice recognition software and make contain errors or omissions. -- It Is medically necessary for this patient to continue to have their intrathecal pump refilled at regular intervals. This patient had an intrathecal pain pump implanted after meeting criteria of chronic intractable pain for greater than 3 months and failing conservative treatments. Patient has committed and been compliant to the treatment plan and all planned follow up care. Since implantation of the intrathecal pain pump, the patient has had decreased pain and been more functional. Oral medications have been reduced including intake of oral opioids. Patient continues to do well with intrathecal therapy with decrease in pain symptoms and increase in functional status. Stopping intrathecal medications can lead to life threatening withdrawal, seizures, cardiac arrest, severe pain, and possible . Pumps that are not refilled at regular intervals can be damages and c
[2022-08-28 11:29] VITALS: BP 114/61; PULSE 127; RESP 21; O2SAT 87; BMI 30.6
== END | disposition home or self-care (01) ==
PROVIDERS: PCP Nurse Practitioner Family; Visit Provider Nurse Practitioner Family
DX: M51.16 Intervertebral disc disorders with radiculopathy, lumbar region (principal)
CPT/HCPCS: 62368; 99213; G0463

== ENCOUNTER → 2022-09-04 12:14 | Outpatient (POV) | payer MEDICARE, MEDICAID, SELFPAY ==
[2022-09-04 12:24] VITALS: BP 100/71; PULSE 77; RESP 20; O2SAT 97; BMI 30.6
--- NOTE | 2022-09-04 15:30 | EXP.PAIN.PRO ---
Procedure Date: 09/04/22 Time: 15:30 Anesthesiologist:: HARIS Bradshaw Complications:: None Pre-procedure Diagnosis:: Degenerative disc disease of lumbar spine with lumbar radiculopathy symptoms Post-procedure Diagnosis:: Same Indications for Procedure:: Patient is a pleasant 76-year-old female who presents today for follow-up intrathecal pain pump adjustment. Patient had a permanent placement of intrathecal pain pump on 08/22/2022. Today, patient states that she has been having swelling, itchiness, and worsening low back pain. We did recommend for her to take benadryl over the phone for the itchiness which has helped. Her swelling has gone down in today's appt as well. She is however having increasing low back pain. We will adjust her intrathecal pain pump today. Rates pain as 8/10. Denies any bowel and/or urinary issues. Physical Exam: General: Alert and oriented x3, no acute distress, pleasant and cooperative Lungs: Respirations even and unlabored, symmetrical chest expansion Eyes: PERRL Musculoskeletal: Flexion and extension of lumbar [spine] somewhat guarded secondary to pain, [antalgic gait noted] Neurological: Speech clear, no gross sensory deficit Procedure Details:: Informed consent was obtained and the risk and benefits of the procedure were explained to the patient. Patient was taken to the procedure room where noninvasive monitoring was placed including noninvasive blood pressure cuff and pulse oximeter. Patient's pump was interrogated and was increased to morphine 0.121 mg/day. The patient tolerated the procedure well with no complications. Plan and Disposition:: Patient's intrathecal pain pump incision today has some erythema but no swelling or drainage. This might be from the dae. Will cont to monitor for now. Her midline incision is healing well and well approximated. Follow up next week for staple removal. Patient has been instructed to contact the clinic with any concerns before the next appointment. Dr. Hinojosa has reviewed this note and agrees with this plan of care. This note was dictated using voice recognition software and make contain errors or omissions.
== END | disposition home or self-care (01) ==
PROVIDERS: PCP Nurse Practitioner Family; Visit Provider Student in an Organized Health Care Education/Training Program
DX: M51.16 Intervertebral disc disorders with radiculopathy, lumbar region (principal)
CPT/HCPCS: 62368; 99213; G0463

== ENCOUNTER → 2022-09-11 12:52 | Outpatient (POV) | payer MEDICARE, MEDICAID, SELFPAY ==
[2022-09-11 13:24] VITALS: BP 124/60; PULSE 104; RESP 20; O2SAT 96; BMI 30.6
--- NOTE | 2022-09-11 13:40 | EXP.PAIN.SOA ---
[facility] Pain Management SOAP Note Subjective:: Patient is a pleasant 76-year-old female who presents today for follow-up. We are currently treating the patient for degenerative disc disease of lumbar spine with lumbar radiculopathy symptoms. Today she rates her pain a 3 out of 10. Patient denies any new trauma or injury. Patient denies any change location or type of pain she experiences. Patient did come in last week due to issues with itching and swelling however those have completely resolved and the patient was given a significant increase in her intrathecal pain pump settings. Today the patient states that she has had much better pain coverage following that increase however she does still states she has occasional pain in her legs. Patient did have her pump placed on 08/22/2022. Patient states she is continuing to wear her abdominal binder and following her postoperative restrictions. Patient is currently managed with morphine 1 mg/mL with a daily dose of 0.1211 mg/day. Patient denies any side effects from this medication. She states this medication is helping her symptoms. Patient is also prescribed gabapentin 300 mg 3 times a day from her primary care doctor. Patient denies any side effects from this medication. Her Eric is [id number]. Its been reviewed and appropriate. Review of Systems: General: No recent weight changes, no fever, no sleep disturbances Respiratory: No cough, no shortness of air, no recurring pulmonary infections Cardiovascular/peripheral vascular: No chest pain, no palpitations, no edema, no shortness of breath Gastrointestinal: No new onset incontinence, normal bowel movements reported Genitourinary: No new onset incontinence Musculoskeletal: Low back pain, bilateral leg pain Psychiatric: [Normal mood/affect] Neurological: [Denies weakness in extremities], [denies balance issues] Objective:: Physical Exam: General: Alert and oriented x3, no acute distress, pleasant and cooperative Lungs: Respirations even and unlabored, symmetrical chest expansion Eyes: PERRL Musculoskeletal: Flexion and extension of lumbar [spine] somewhat guarded secondary to pain, [antalgic gait noted] Neurological: Speech clear, no gross sensory deficit Skin: Incision site clean, dry, well approximated with mild erythema noted, dae intact Assessment:: Degenerative disc disease of lumbar spine with lumbar radiculopathy symptoms Plan:: Patient has had significant improvement in her pain symptoms following her last intrathecal pain pump adjustment. Patient did have every other staple removed during today's visit. Patient's incision site is clean, dry, well approximated with mild erythema noted. I have discussed with the patient to continue her postoperative restrictions and wear her abdominal binder. Patient will return to clinic next week to remove the remainder of her dae with the plan to add skin glue and Steri-Strips. Patient will return to clinic in 1 week for reevaluation of symptoms and follow-up. Patient has been instructed to contact the clinic with any concerns before the next appointment. Dr. Hinojosa has reviewed this note and agrees with this plan of care. This note was dictated using voice recognition software and make contain errors or omissions. -- It Is medically necessary for this patient to continue to have their intrathecal pump refilled at regular intervals. This patient had an intrathecal pain pump implanted after meeting criteria of chronic intractable pain for greater than 3 months and failing conservative treatments. Patient has committed and been compliant to the treatment plan and all planned follow up care. Since implantation of the intrathecal pain pump, the patient has had decreased pain and been more functional. Oral medications have been reduced including intake of oral opioids. Patient continues to do well with intrathecal therapy with decrease in pain symptoms and increase in functional status. Stopping intrathecal medi
== END ==
PROVIDERS: PCP Nurse Practitioner Family; Visit Provider Nurse Practitioner Family
DX: M51.16 Intervertebral disc disorders with radiculopathy, lumbar region (principal); F17.210 Nicotine dependence, cigarettes, uncomplicated
CPT/HCPCS: 99212; G0463

== ENCOUNTER → 2022-09-18 14:14 | Outpatient (POV) | payer MEDICARE, MEDICAID, SELFPAY ==
--- NOTE | 2022-09-18 15:18 | EXP.PAIN.PRO ---
Procedure Date: 09/18/22 Time: 15:18 Anesthesiologist:: Cathie Benjamin APRN Complications:: None Pre-procedure Diagnosis:: Degenerative disc disease of lumbar spine with lumbar radiculopathy symptoms Post-procedure Diagnosis:: Same Indications for Procedure:: Patient is a pleasant 76-year-old female who presents today for intrathecal pain pump reprogramming adjustment. The patient is being treated for degenerative disc disease of lumbar spine with lumbar radiculopathy symptoms. Patient is currently being managed with morphine 1 mg/mL with a daily dose of 0.1211 mg/day. Patient denies any side effects from this medication. Patient is managed with gabapentin 300 mg 3 times a day and alprazolam 1 mg 3 times a day from her primary care provider patient denies any side effects from these medications. Patient rates pain a 10 out of 10. Patient denies any new trauma or injury. Patient does state that she is experiencing some edema in her bilateral feet and her right hand. Patient does state that she does have a history of having edema related issues and was previously on Lasix and being followed by Dr. Valles for it along with bladder incontinence. Patient states that since Dr. Valles has left here at [facility] she has not been back to see him nor is she still on her Lasix. Patient does describe the pain in her back down to her knee as a constant achy sensation that is worse with increased activity or walking. Drug screen is appropriate. Eric [id number] has been reviewed and is appropriate. Physical exam General: Alert and oriented x3, no acute distress, pleasant and cooperative Lungs: Respirations even and unlabored, symmetrical chest expansion Eyes: PERRL Musculoskeletal: Flexion and extension of lumbar [spine] somewhat guarded secondary to pain, [antalgic gait noted] Neurological: Speech clear, no gross sensory deficit Procedure Details:: Informed consent was obtained and the risk and benefits of the procedure were explained to the patient. Patient was taken to the procedure room where noninvasive monitoring was placed including noninvasive blood pressure cuff and pulse oximeter. Patient's pump was interrogated and was reprogrammed to morphine 0.1332 mg/day. The patient tolerated the procedure well with no complications. Plan and Disposition:: Patient will return to clinic in 1 week for reevaluation of symptoms and follow-up. I have counseled the patient that if she continues to experience significant edema in her feet and hand that we may need to switch her intrathecal medication. I have also counseled the patient to contact as before next Thursday if she continues to have worsening symptoms. At this time the patient would not like to be prescribed additional Lasix due to her urinary frequency already being an issue. Patient has been instructed to contact the clinic with any concerns before the next appointment. Dr. Hinojosa has reviewed this note and agrees with this plan of care. This note was dictated using voice recognition software and make contain errors or omissions. -- It Is medically necessary for this patient to continue to have their intrathecal pump refilled at regular intervals. This patient had an intrathecal pain pump implanted after meeting criteria of chronic intractable pain for greater than 3 months and failing conservative treatments. Patient has committed and been compliant to the treatment plan and all planned follow up care. Since implantation of the intrathecal pain pump, the patient has had decreased pain and been more functional. Oral medications have been reduced including intake of oral opioids. Patient continues to do well with intrathecal therapy with decrease in pain symptoms and increase in functional status. Stopping intrathecal medications can lead to life threatening withdrawal, seizures, cardiac arrest, severe pain, and possible . Pumps that are not refilled at regular intervals can be damages and
[2022-09-18 15:42] VITALS: BP 97/41; PULSE 103; RESP 18; O2SAT 97; BMI 26.6
== END | disposition home or self-care (01) ==
PROVIDERS: PCP Nurse Practitioner Family; Visit Provider Nurse Practitioner Family
DX: M51.16 Intervertebral disc disorders with radiculopathy, lumbar region (principal)
CPT/HCPCS: 62368; 99213; G0463

== ENCOUNTER → 2022-09-25 15:07 | Outpatient (POV) | payer MEDICARE, MEDICAID, SELFPAY ==
[2022-09-25 15:24] VITALS: BP 127/58; PULSE 120; RESP 20; O2SAT 97; BMI 31.4
--- NOTE | 2022-09-25 15:34 | EXP.PAIN.PRO ---
Procedure Date: 09/25/22 Time: 15:34 Anesthesiologist:: Cathie Benjamin APRN Complications:: None Pre-procedure Diagnosis:: Degenerative disc disease of lumbar spine with lumbar radiculopathy symptoms Post-procedure Diagnosis:: Same Indications for Procedure:: Patient is a pleasant 76-year-old female who presents today for intrathecal pain pump reprogramming adjustment. The patient is being treated for degenerative disc disease of lumbar spine with lumbar radiculopathy symptoms. Patient is currently being managed with morphine 1 mg/mL with a daily dose of 0.1332 mg/day. Patient denies any side effects from this medication. From our previous visit the patient did get a increase of her pelvic medication dosage and she states she has done well with this. Patient has had decreased pain following that adjustment and states that her edema that was noted at our prior visit has since decreased and she does believe it is unrelated to her pump medication. Patient had been prescribed Lasix by Dr. Valles in the past. Patient is currently managed with gabapentin 300 mg 3 times a day and alprazolam 1 mg 3 times a day from her primary care doctor. Patient denies any side effects from these medications. Patient does state that she is planning on going to see her brother who lives out in [place] in October around the . Patient did want to make sure that there would be no issues with her making this trip. Patient rates pain a 5 out of 10. Drug screen is appropriate. Eric [id number] has been reviewed and is appropriate. Physical exam General: Alert and oriented x3, no acute distress, pleasant and cooperative Lungs: Respirations even and unlabored, symmetrical chest expansion Eyes: PERRL Musculoskeletal: Flexion and extension of lumbar [spine] somewhat guarded secondary to pain, [antalgic gait noted] Neurological: Speech clear, no gross sensory deficit Skin: Incision sites are clean, well approximated with the upper incision having a 1 cm area of minimal drainage and erythema noted; patient's lower incision has dae intact Procedure Details:: Informed consent was obtained and the risk and benefits of the procedure were explained to the patient. Patient was taken to the procedure room where noninvasive monitoring was placed including noninvasive blood pressure cuff and pulse oximeter. Patient's pump was interrogated and was reprogrammed to morphine 0.1466 mg/day. The patient tolerated the procedure well with no complications. Plan and Disposition:: Patient's lower incision did have her dae removed during today's visit. I have counseled the patient that she can apply some Neosporin and a Band-Aid to the upper incision at the 1 cm site of drainage and minimal erythema. I have instructed the patient to continue her postop restrictions with minimal bending, lifting, twisting and no submerging in water until her incision sites are fully healed. Patient has been instructed to contact our office if she has any additional problems with her edema in her lower extremities. Patient will return to clinic in 2 weeks for reevaluation of symptoms and follow-up. Patient has been instructed to contact the clinic with any concerns before the next appointment. Dr. Hinojosa has reviewed this note and agrees with this plan of care. This note was dictated using voice recognition software and make contain errors or omissions. -- It Is medically necessary for this patient to continue to have their intrathecal pump refilled at regular intervals. This patient had an intrathecal pain pump implanted after meeting criteria of chronic intractable pain for greater than 3 months and failing conservative treatments. Patient has committed and been compliant to the treatment plan and all planned follow up care. Since implantation of the intrathecal pain pump, the patient has had decreased pain and been more functional. Oral medications have been reduced including intake of oral
== END | disposition home or self-care (01) ==
PROVIDERS: PCP Nurse Practitioner Family; Visit Provider Nurse Practitioner Family
DX: Z45.1 Encounter for adjustment and management of infusion pump (principal); M51.16 Intervertebral disc disorders with radiculopathy, lumbar region
CPT/HCPCS: 62368; 99213; G0463

== ENCOUNTER → 2022-10-09 11:21 | Outpatient (POV) | payer MEDICARE, MEDICAID, SELFPAY ==
[2022-10-09 12:07] VITALS: BP 147/82; PULSE 87; RESP 18; O2SAT 96; BMI 29.9
--- NOTE | 2022-10-09 12:20 | EXP.PAIN.PRO ---
Procedure Date: 10/09/22 Time: 11:30 Anesthesiologist:: Cathie Benjamin APRN Complications:: None Pre-procedure Diagnosis:: Degenerative disc disease of lumbar spine with lumbar radiculopathy symptoms Post-procedure Diagnosis:: Same Indications for Procedure:: Patient is a pleasant 76-year-old female who presents today for intrathecal pain pump reprogramming adjustment. The patient is being treated for degenerative disc disease of lumbar spine with lumbar radiculopathy symptoms. Patient is currently being managed with morphine 1 mg/mL with a daily dose of 0.1466 mg/day. Patient denies any side effects from this medication. Patient states she has not had any other episodes of edema. Patient rates pain a 7 out of 10. Patient denies any new trauma or injury. Patient denies any change location or type of pain she experiences. Patient is currently managed with gabapentin 300 mg 3 times a day and alprazolam 1 mg 3 times a day from her primary care doctor. Patient denies any side effects from these medications. Patient states that she is currently sleeping in her recliner and has for the last several weeks due to her CPAP machine. Patient states she did finally have it replaced however they have been unable to get the settings just right. Patient states she feels like it is too strong which leads her to continue to sleep upright in her chair. Drug screen is appropriate. Eric [id number] has been reviewed and is appropriate. Physical exam General: Alert and oriented x3, no acute distress, pleasant and cooperative Lungs: Respirations even and unlabored, symmetrical chest expansion Eyes: PERRL Musculoskeletal: Flexion and extension of lumbar [spine] somewhat guarded secondary to pain, [antalgic gait noted] Neurological: Speech clear, no gross sensory deficit Skin: Incision site clean, dry, well approximated with no erythema or drainage noted Procedure Details:: Informed consent was obtained and the risk and benefits of the procedure were explained to the patient. Patient was taken to the procedure room where noninvasive monitoring was placed including noninvasive blood pressure cuff and pulse oximeter. Patient's pump was interrogated and was reprogrammed to morphine 0.1466 mg/day. The patient tolerated the procedure well with no complications. Plan and Disposition:: I have counseled the patient to continue her postop restrictions for the full 6 weeks with minimal bending, lifting, twisting, no submerging in water and continue to wear her abdominal binder. Patient will return to clinic in 1 month for reevaluation of symptoms, medication refill and follow-up. Patient has been instructed to contact the clinic with any concerns before the next appointment. Dr. Hinojosa has reviewed this note and agrees with this plan of care. This note was dictated using voice recognition software and make contain errors or omissions. -- It Is medically necessary for this patient to continue to have their intrathecal pump refilled at regular intervals. This patient had an intrathecal pain pump implanted after meeting criteria of chronic intractable pain for greater than 3 months and failing conservative treatments. Patient has committed and been compliant to the treatment plan and all planned follow up care. Since implantation of the intrathecal pain pump, the patient has had decreased pain and been more functional. Oral medications have been reduced including intake of oral opioids. Patient continues to do well with intrathecal therapy with decrease in pain symptoms and increase in functional status. Stopping intrathecal medications can lead to life threatening withdrawal, seizures, cardiac arrest, severe pain, and possible . Pumps that are not refilled at regular intervals can be damages and cause and need for replacement. We continually titrate dose and concentration to optimize pain relief and function. We are limited in concentration for certain drugs to safely
== END | disposition home or self-care (01) ==
PROVIDERS: PCP Nurse Practitioner Family; Visit Provider Nurse Practitioner Family
DX: Z45.1 Encounter for adjustment and management of infusion pump (principal); M51.16 Intervertebral disc disorders with radiculopathy, lumbar region
CPT/HCPCS: 62368; 99213; G0463

== ENCOUNTER → 2022-10-20 14:12 | Outpatient (POV) | payer MEDICARE, MEDICAID, SELFPAY ==
--- NOTE | 2022-10-20 14:17 | EXP.PAIN.PRO ---
Procedure Date: 10/20/22 Time: 14:35 Anesthesiologist:: Cathie Benjamin APRN Complications:: None Pre-procedure Diagnosis:: Degenerative disc disease of lumbar spine with lumbar radiculopathy symptoms Post-procedure Diagnosis:: Same Indications for Procedure:: Patient is a pleasant 76-year-old female who presents today for intrathecal pain pump reprogramming adjustment. The patient is being treated for degenerative disc disease of lumbar spine with lumbar radiculopathy symptoms. Patient is currently being managed with morphine 1 mg/mL with a daily dose of 0.1466 mg/day. Patient denies any side effects from this medication. Patient states she is experiencing pain around her pump site. Patient denies any new trauma or injury. Patient denies any change location or type of pain she experiences. At our last visit we did give her an increase of her intrathecal medication and she does state this did provide significant improvement however over the last day she has had worsening pain symptoms. Patient continues to have issues with her CPAP machine and states that her settings are still off. Patient has called [facility] to see about them coming to readjust however at that time she stated they wanted her to bring the machine into their store. Patient states she continues to sleep up in a recliner or on her sectional. Patient does state that she may have aggravated her pain symptoms by sleeping awkwardly. Patient rates pain a 10 out of 10. Drug screen is appropriate. Patient has been prescribed compounding cream in the past however insurance did not cover this medication. Eric has been reviewed and is appropriate. Physical exam General: Alert and oriented x3, no acute distress, pleasant and cooperative Lungs: Respirations even and unlabored, symmetrical chest expansion Eyes: PERRL Musculoskeletal: Flexion and extension of lumbar [spine] somewhat guarded secondary to pain, [antalgic gait noted] Neurological: Speech clear, no gross sensory deficit Skin: Patient's pump site clean, dry, no drainage, no erythema, no tenderness upon palpation Procedure Details:: Informed consent was obtained and the risk and benefits of the procedure were explained to the patient. Patient was taken to the procedure room where noninvasive monitoring was placed including noninvasive blood pressure cuff and pulse oximeter. Patient's pump was interrogated and was reprogrammed to morphine 0.1935 mg/day. The patient tolerated the procedure well with no complications. Plan and Disposition:: Patient is experiencing worsening pain in her low back with limited range of motion. Patient's pump site is warm to touch with no erythema or drainage noted. Patient denied any tenderness upon palpation around the device. With her generalized low back pain I have discussed that we will see her back in 2 weeks for reevaluation of her symptoms and plan of care. I have counseled the patient to contact [facility] and see if they can come out to readjust her CPAP machine settings. Patient has been instructed to contact the clinic with any concerns before the next appointment. Dr. Hinojosa has reviewed this note and agrees with this plan of care. This note was dictated using voice recognition software and make contain errors or omissions. -- It Is medically necessary for this patient to continue to have their intrathecal pump refilled at regular intervals. This patient had an intrathecal pain pump implanted after meeting criteria of chronic intractable pain for greater than 3 months and failing conservative treatments. Patient has committed and been compliant to the treatment plan and all planned follow up care. Since implantation of the intrathecal pain pump, the patient has had decreased pain and been more functional. Oral medications have been reduced including intake of oral opioids. Patient continues to do well with intrathecal therapy with decrease in pain symptoms and increase
[2022-10-20 14:57] VITALS: BP 102/32; PULSE 111; RESP 19; O2SAT 97; BMI 30.4
== END | disposition home or self-care (01) ==
PROVIDERS: PCP Nurse Practitioner Family; Visit Provider Nurse Practitioner Family
DX: Z45.1 Encounter for adjustment and management of infusion pump (principal); T85.840A Pain due to nervous system prosthetic devices, implants and grafts, initial encounter; M51.16 Intervertebral disc disorders with radiculopathy, lumbar region
CPT/HCPCS: 62368; 99212; 99213; G0463

== ENCOUNTER → 2022-11-08 11:42 | Outpatient (CLI) | payer MEDICARE, MEDICAID, SELFPAY ==
--- NOTE | 2022-11-08 11:51 | XR_ITS ---
PROCEDURE INFORMATION: Exam: XR Chest Exam date and time: 11/08/2022 11:54 AM Age: 77 years old Clinical indication: Shortness of breath; Additional info: Edema TECHNIQUE: Imaging protocol: Radiologic exam of the chest. Views: 2 views. COMPARISON: CR XR CHEST PORTABLE PICC PLAC 02/24/2022 1:57 PM FINDINGS: Lungs: Predominantly linear opacity along the medial right base, likely atelectasis although pneumonia not excluded. Pleural spaces: Unremarkable. No pleural effusion. No pneumothorax. Heart/Mediastinum: Unremarkable. No cardiomegaly. Bones/joints: Unremarkable. IMPRESSION: Predominantly linear opacity along the medial right base, likely atelectasis although pneumonia not excluded.
[2022-11-08 13:08] LABS: Basophils # 0.1 K/mm3 (0-0.2); Basophils % 0.5 % (0.1-2.0); Eosinophils # 0.1 K/mm3 (0.0-0.4); Eosinophils % 0.5 % (0.1-12.0); Hematocrit 34.7 % (37.0-47.0); Hemoglobin 10.1 g/dL (12.2-16.2); Lymphocytes % 13.8 % (10-50); Mean Corpuscular HGB Conc 29.3 g/dL (31.8-35.4); Mean Corpuscular Hemoglobin 22.2 pg (27.0-31.2); Mean Platelet Volume 8.4 fl (7.4-10.4); Monocytes # 0.8 K/mm3 (0.1-1.0); Monocytes % 5.1 % (1.7-9.3); Neutrophils # 11.7 K/mm3 (1.8-7.8); Neutrophils % 80.1 % (37.0-80.0); Platelet Count 427 K/mm3 (142-424); Red Blood Count 4.56 M/mm3 (4.20-5.40); Red Cell Distribution Width 18.2 % (11.5-17.5); White Blood Count 14.6 K/mm3 (4.8-10.8)
[2022-11-08 13:21] LABS: Chloride 99 mmol/L (98-107); Potassium 4.4 mmoL/L (3.5-5.1); Sodium 138 mmol/L (136-145)
[2022-11-08 13:24] LABS: Alanine Aminotransferase 12 U/L (12-78); Albumin Level 3.7 g/dl (3.5-5.0); Albumin/Globulin Ratio 1.4 (1.1-1.8); Alkaline Phosphatase 59 U/L (38-126); Anion Gap 7.4 mEq/L (5-15); Aspartate Amino Transferase 21 U/L (14-36); Bilirubin,Total 0.4 mg/dl (0.2-1.3); Blood Urea Nitrogen 12 mg/dl (7-17); Calcium 8.8 mg/dl (8.4-10.2); Carbon Dioxide 36 mmol/L (22.0-30.0); Estimated Glomerular Filt Rate 54 ml/min (>60); GFR (African American) 65 ML/MIN (>60); Globulin 2.6 g/dL (1.3-3.2); Glucose 108 mg/dl (74-100); Total Protein,Serum 6.3 g/dl (6.3-8.2)
[2022-11-08 13:25] LABS: Magnesium 1.6 mg/dl (1.6-2.3)
== END ==
PROVIDERS: PCP Nurse Practitioner Family; Visit Provider Internal Medicine Adolescent Medicine
DX: R06.09 Other forms of dyspnea (principal); R60.9 Edema, unspecified
CPT/HCPCS: 36415; 71046; 80053; 83735; 85025

== ENCOUNTER 2022-12-09 08:59 | Day surgery (SDC) | payer MEDICARE, MEDICAID, SELFPAY ==
[2022-12-09 09:10] VITALS: BP 99/74; PULSE 112; RESP 18; TEMP 36.8; O2SAT 93; BMI 28.8
--- NOTE | 2022-12-09 09:29 | EXP.PAIN.PRO ---
Procedure Date: 12/09/22 Time: 09:10 Anesthesiologist:: Ian Zambrano CRNA Complications:: None Pre-procedure Diagnosis:: Degenerative disc disease lumbar spine multilevels. Lumbar radiculopathy. Lumbar postlaminectomy syndrome. Bilateral sacroiliitis Post-procedure Diagnosis:: Same. Indications for Procedure:: This patient is a very pleasant 77-year-old female that we have been treating with intrathecal pain pump management. She is currently being managed with morphine sulfate 1 mg/mL. Her current rate is 0.1935 mg/day. Patient having some significant pain in her low back area. Minimal pain at the midline lumbar spine. The majority of her pain is bilaterally off the midline covering the sacroiliac joints. She has extreme point tenderness upon examination over the sacroiliac joints. Patient states she has extreme difficulty ambulating. Extreme difficulty transitioning from sitting to standing. She has positive Gaenslen's test. Positive Brian's test. Bilaterally. Positive sacroiliac joint compression test bilaterally. Patient was continue with home exercise program prior to this severe pain covering the SI joints began. We will increase her pain pump today by 20%. We will get her on the schedule for bilateral sacroiliac joint injections of cortisone. Procedure Details:: Details of the procedure explained to the patient. The patient taken to procedure bernie placed in the sitting position. The area over the pump was cleaned using chlorhexidine as a cleansing solution. The pump was interrogated. The pump was accessed with ease using a 22-gauge inch and half needle. 2 mL of solution was withdrawn and discarded appropriately. The pump was then filled with 20 cc incrementally of morphine sulfate 1 mg/mL. The pump was increased by 20%. The new rate is 0.23 to 3 mg/day. Patient tolerated the procedure without difficulty. There are no complications. Plan and Disposition:: Patient was discharged without incident.
[2022-12-09 09:30] VITALS: BP 84/54; PULSE 114; RESP 18; O2SAT 93
== END 2022-12-09 09:30 | disposition home or self-care (01) ==
PROVIDERS: PCP Nurse Practitioner Family; Visit Provider Nurse Anesthetist, Certified Registered
DX: M51.16 Intervertebral disc disorders with radiculopathy, lumbar region (principal); M96.1 Postlaminectomy syndrome, not elsewhere classified; M46.1 Sacroiliitis, not elsewhere classified
CPT/HCPCS: 62370

== ENCOUNTER 2022-12-16 11:50 | Day surgery (SDC) | payer MEDICARE, MEDICAID, SELFPAY ==
[2022-12-16 12:19] VITALS: BP 114/70; PULSE 117; RESP 18; TEMP 36.9; O2SAT 98; BMI 28.8
[2022-12-16 12:27] VITALS: BP 136/88; PULSE 115; RESP 18; O2SAT 97
[2022-12-16 12:29] VITALS: BP 136/88; PULSE 115; RESP 18; O2SAT 97
--- NOTE | 2022-12-16 12:31 | P.PCN_ITS ---
Procedure Date: 12/16/22 Time: 12:25 Anesthesiologist:: Ian Zambrano CRNA Complications:: None Pre-procedure Diagnosis:: Bilateral sacroiliitis. Degenerative disc lumbar spine multilevels. Lumbar radiculopathy. Lumbar postlaminectomy syndrome. Post-procedure Diagnosis:: Same. Indications for Procedure:: This patient is a very pleasant 77-year-old female that comes our clinic today for bilateral sacroiliac joint injections. She has extreme point tenderness over the bilateral sacroiliac joints. She reports today not being able to sit due to the pain in the bilateral low lumbar and buttock area. She has difficulty transitioning from sitting to standing. She rates her pain 9/10. Patient is also being managed with intrathecal morphine sulfate 1 mg/mL. She is at a rate of 0.1935 mg/day. Procedure Details:: Procedure: Bilateral sacroiliac joint injections under fluoroscopy Informed consent was obtained and the risks and benefits of the procedure were explained to the patient.~ The patient was taken to the procedure room and noninvasive monitors were placed including a noninvasive blood pressure cuff and pulse oximeter.~ The patient was placed prone on the procedure table. Both hips were cleansed using Betadine as a cleansing solution. C-arm fluoroscopy was used to view the right sacroiliac joint.~ The skin and subcutaneous tissues were anesthetized using lidocaine 1.5% and a 25-gauge needle.~ After this, a 22-gauge spinal needle was inserted under fluoroscopic guidance into the inferior aspect of the right sacroiliac joint.~ Omnipaque dye was injected and good spread was seen throughout the joint.~ After this, approximately 5 mL of bupivacaine, 0.25% and Depo-Medrol, 40 mg was incrementally injected into the right sacroiliac joint. We then moved to the left sacroiliac joint.~ The skin and subcutaneous tissues were anesthetized using lidocaine 1.5% and a 25-gauge needle.~ After this, a 22- gauge spinal needle was inserted under fluoroscopic guidance into the inferior aspect of the left sacroiliac joint.~ Omnipaque dye was injected and good spread was seen throughout the joint. After this, approximately 5 mL of bupivacaine, 0.25% and Depo-Medrol, 40 mg was incrementally injected into the left sacroiliac joint.~ The patient tolerated the procedure well with no complications. The patient was observed in the Pain Clinic and then was discharged home neurologically intact. Plan and Disposition:: Patient was discharged without incident.
[2022-12-16 12:33] VITALS: BP 106/61; PULSE 116; RESP 18; O2SAT 90
== END 2022-12-16 12:33 | disposition home or self-care (01) ==
PROVIDERS: PCP Nurse Practitioner Family; Visit Provider Nurse Anesthetist, Certified Registered
DX: M51.16 Intervertebral disc disorders with radiculopathy, lumbar region (principal); M46.1 Sacroiliitis, not elsewhere classified; M96.1 Postlaminectomy syndrome, not elsewhere classified
CPT/HCPCS: 27096; G0260

== ENCOUNTER → 2022-12-30 11:07 | Outpatient (CLI) | payer MEDICARE, MEDICAID, SELFPAY ==
[2022-12-30 11:14] LABS: Adenovirus,PCR Not Detected (NotDetected); Bordetella Pertussis Not Detected (NotDetected); Chlamydophila Pneumoniae, PCR Not Detected (NotDetected); Coronavirus 19, PCR Not Detected (NotDetected); Coronavirus 229E Not Detected (NotDetected); Coronavirus NL63 Not Detected (NotDetected); Coronavirus OC43 Not Detected (NotDetected); Coronovirus HKU1,PCR Not Detected (NotDetected); Human Metapneumovirus Not Detected (NotDetected); Influenza A, PCR Not Detected (NotDetected); Influenza AH1, 2009 Not Detected (NotDetected); Influenza AH1, PCR Not Detected (NotDetected); Influenza AH3,PCR Not Detected (NotDetected); Influenza B, PCR Not Detected (NotDetected); Mycoplasma Pneumoniae, PCR Not Detected (NotDetected); Parainfluenza 1, PCR Not Detected (NotDetected); Parainfluenza 2, PCR Not Detected (NotDetected); Parainfluenza 3, PCR Not Detected (NotDetected); Parainfluenza 4, PCR Not Detected (NotDetected); Respiratory Syncytial Virus Not Detected (NotDetected); Rhinovirus/Enterovirus Not Detected (NotDetected)
--- NOTE | 2022-12-30 11:26 | XR_ITS ---
FINAL REPORT CLINICAL HISTORY: SOA AND WEAKNESS COMPARISON: 11/08/2022 FINDINGS: TWO-VIEW CHEST The heart size is normal. The mediastinum is normal. There is mild bibasilar atelectasis. There is no pneumothorax. IMPRESSION: Mild bibasilar atelectasis. Reviewed, Interpreted and Dictated by Ghulam Ramirez III, MD Transcribed by Lynn Knight Authenticated and [facility]
[2022-12-30 11:34] LABS: Basophils # 0.1 K/mm3 (0-0.2); Basophils % 0.6 % (0.1-2.0); Eosinophils # 0.2 K/mm3 (0.0-0.4); Hematocrit 38.6 % (37.0-47.0); Hemoglobin 11.3 g/dL (12.2-16.2); Lymphocytes # 2.6 K/mm3 (0.7-4.5); Lymphocytes % 17.5 % (10-50); Mean Corpuscular HGB Conc 29.3 g/dL (31.8-35.4); Mean Corpuscular Hemoglobin 21.9 pg (27.0-31.2); Mean Corpuscular Volume 74.8 fl (81-99); Mean Platelet Volume 8.1 fl (7.4-10.4); Monocytes # 1.1 K/mm3 (0.1-1.0); Monocytes % 7.7 % (1.7-9.3); Neutrophils # 10.7 K/mm3 (1.8-7.8); Neutrophils % 73.1 % (37.0-80.0); Platelet Count 419 K/mm3 (142-424); Red Blood Count 5.16 M/mm3 (4.20-5.40); Red Cell Distribution Width 20.1 % (11.5-17.5); White Blood Count 14.6 K/mm3 (4.8-10.8)
[2022-12-30 11:37] LABS: Alanine Aminotransferase 13 U/L (12-78); Albumin/Globulin Ratio 1.2 (1.1-1.8); Alkaline Phosphatase 86 U/L (38-126); Anion Gap 11.3 mEq/L (5-15); Aspartate Amino Transferase 25 U/L (14-36); Bilirubin,Total 0.5 mg/dl (0.2-1.3); Blood Urea Nitrogen 16 mg/dl (7-17); Calcium 8.5 mg/dl (8.4-10.2); Carbon Dioxide 33 mmol/L (22.0-30.0); Chloride 94 mmol/L (98-107); Estimated Glomerular Filt Rate 48 ml/min (>60); GFR (African American) 58 ML/MIN (>60); Globulin 3.4 g/dL (1.3-3.2); Glucose 121 mg/dl (74-100); Potassium 4.3 mmoL/L (3.5-5.1); Sodium 134 mmol/L (136-145); Total Protein,Serum 7.4 g/dl (6.3-8.2)
== END ==
PROVIDERS: PCP Nurse Practitioner Family; Visit Provider Nurse Practitioner Family
DX: R06.02 Shortness of breath (principal); I10 Essential (primary) hypertension
CPT/HCPCS: 36415; 71046; 80053; 85025; 87581; 87632; 87798; C9803; U0003; U0005

== ENCOUNTER 2022-12-30 12:34 | Observation (INO) | payer MEDICARE, MEDICAID, SELFPAY ==
[2022-12-30 12:46] VITALS: BP 147/62; PULSE 127; RESP 20; TEMP 36.9; O2SAT 92; BMI 27.7
--- NOTE | 2022-12-30 14:13 | P.CONPHA_ITS ---
Pharmacy Intervention Comments: Reconciled patient's home medications using pharmacy fill history (clinic pharmacy), primary care records ([facility]), and patient interview.
--- NOTE | 2022-12-30 14:13 | HMH.PHAINT1 ---
Pharmacy Intervention Comments: Reconciled patient's home medications using pharmacy fill history (clinic pharmacy), primary care records ([facility]), and patient interview.
[2022-12-30 14:35] LABS: Microscopic, Urine URINE MICROSCOPIC (MICROSCOPIC)
[2022-12-30 15:02] VITALS: BP 121/52; PULSE 119; RESP 18; TEMP 36.9; O2SAT 91
[2022-12-30 15:03] LABS: Troponin I 0.04 ng/ml (0.00-0.034)
--- NOTE | 2022-12-30 15:22 | ECG_ITS ---
APPROVED REPORT Exam: Resting ECG HR:114 bpm ECG Measurements Heart Rate 114 AXES MS 150 P 69 QRSd 85 QRS 88 QT 319 T 65 QTc 387 Conclusion SINUS TACHYCARDIA ABNORMAL RHYTHM ECG UNCONFIRMED REPORT Electronically signed by : Delvin Newton MD 01/02/2023 14:33:12
[2022-12-30 15:24] LABS: Appearance,Urine SL CLOUDY (Clear); Bilirubin,Urine Negative (Negative); Blood, Urine 2+ (Negative); Color,Urine YELLOW (Yellow); Glucose,Urine (UA) Negative (Negative); Ketones,Urine Negative (Negative); Leukocyte Esterase,Urine 1+ (Negative); Nitrate,Urine POSITIVE (Negative); Protein,Urine 2+ (Negative); Specific Gravity, Urine 1.025 (1.005-1.030)
[2022-12-30 15:37] LABS: Bacteria,Urine 4+ /lpf
[2022-12-30 16:00] VITALS: PULSE 120
[2022-12-30 16:32] LABS: POC Glucose,Bedside 119 (70-110)
--- NOTE | 2022-12-30 17:07 | EXP.HP ---
History of Present Illness *Admission Date: 12/30/22 *Reason for visit:: SOA, weakness *History of present illness: 77 year old female with history HTN, COPD/asthma, anxiety, hypothyroidism, tobacco use disorder, chronic respiratory failure, chronic pain with intrathecal morphine pain pump who was started on macrobid for presumed UTI last week presented to PCP office with weakness and SOA that began a few days ago. She was found to be lethargic and in a WC which is not her baseline. Labs- WBC 14.6, Creatinine 1.1; CXR no acute pathology. Resp PCR negative. Direct admitted for IVF's and further evaluation. Found to have UTI and very mildly elevated trop 0.04. EKG ST with no acute ischemia. Telemetry was placed. Ceftriaxone was added. [facility] Disclaimer: The information contained in this section may have been updated after the patient was seen, as this information can be updated by other users. Medical History Angina, class IV COPD (chronic obstructive pulmonary disease) Diabetes History of left heart catheterization HLD (hyperlipidemia) Hypothyroid Nephrolithiasis Nonspecific ST-T changes Smoker SOB (shortness of breath) Tachycardia Tobacco abuse Surgical History History of bladder surgery History of section History of colon surgery History of spinal surgery History of tonsillectomy Family History No significant family history Social History Smoking Status: Current every day smoker tobacco type: cigarettes packs per day: 1 second hand exposure: Yes alcohol intake: never counseling provided: provider counseling substance use type: denies use current occupational status: retired Travel in the last 8 weeks: None household members: children housing: house current occupational exposures/hazards: No caffeine: No Review of Systems Review of Systems Review of systems:: pertinent systems reviewed and negative unless documented below Constitutional Constitutional: Reports fatigue, Reports lethargy, Reports malaise and Reports weakness *Cardiovascular Cardiovascular: Reports dyspnea *Respiratory Respiratory: Reports cough and Reports dyspnea *Neurologic Neurologic: Reports weakness Endocrine Endocrine: Reports fatigue Meds Home Medications and Allergies Home Medications Medication Instructions Recorded Confirmed Type gabapentin 300 mg capsule 900 mg PO HS neuropathy 10/06/17 12/30/22 History alprazolam 1 mg tablet 1 mg PO TIDP PRN Anxiety 08/24/18 12/30/22 History omeprazole 40 mg capsule,delayed 40 mg PO BID Reflux/Acid reflux 08/24/18 12/30/22 History release levalbuterol tartrate 45 2 puff inhalation Q4H Breathing 02/07/19 12/30/22 History mcg/actuation aerosol inhaler problems milnacipran 100 mg tablet 100 mg PO BID FIBROMYALGIA 02/07/19 12/30/22 History rosuvastatin 20 mg tablet 20 mg PO HS Cholesterol 02/08/19 12/30/22 History alendronate 70 mg tablet 70 mg PO WEEKLY Osteoporosis 10/11/20 12/30/22 History levocetirizine 5 mg tablet 5 mg PO HS Allergy symptoms 10/11/20 12/30/22 History cyclobenzaprine 5 mg tablet 5 mg PO HS MUSCLE SPASMS 12/18/20 12/30/22 History levothyroxine 125 mcg tablet 125 mcg PO DAILY THYROID 12/18/20 12/30/22 History metformin 500 mg tablet,extended 500 mg PO DAILY Diabetes 12/18/20 12/30/22 History release 24 hr montelukast 10 mg tablet 10 mg PO HS Allergy symptoms 12/18/20 12/30/22 History sitagliptin phosphate 100 mg tablet 100 mg PO DAILY Diabetes 12/18/20 12/30/22 History aspirin 81 mg tablet,delayed 81 mg PO DAILY [facility] 04/11/21 12/30/22 History release ergocalciferol (vitamin D2) 1,250 50,000 units PO WEEKLY Supplement 02/20/22 12/30/22 History mcg (50,000 unit) capsule potassium chloride 10 mEq 10 meq PO DIRECTED Supplemen
[2022-12-30 17:48] LABS: Troponin I 0.04 ng/ml (0.00-0.034)
[2022-12-30 19:59] VITALS: BP 107/59; PULSE 112; RESP 18; TEMP 36.6; O2SAT 95
[2022-12-30 20:00] VITALS: PULSE 110; PULSE 112; O2SAT 95
[2022-12-31] VITALS (7 sets, daily range): BP systolic 110–117; BP diastolic 57–63; PULSE 86–100; RESP 16–18; TEMP 36.9–37; O2SAT 92–99; BMI 28.5
[2022-12-31 06:43] LABS: Basophils # 0.1 K/mm3 (0-0.2); Basophils % 0.5 % (0.1-2.0); Eosinophils # 0.2 K/mm3 (0.0-0.4); Hematocrit 35.9 % (37.0-47.0); Hemoglobin 10.3 g/dL (12.2-16.2); Lymphocytes # 2.2 K/mm3 (0.7-4.5); Lymphocytes % 14.4 % (10-50); Mean Corpuscular HGB Conc 28.6 g/dL (31.8-35.4); Mean Corpuscular Hemoglobin 21.7 pg (27.0-31.2); Mean Platelet Volume 8.4 fl (7.4-10.4); Monocytes # 1.3 K/mm3 (0.1-1.0); Monocytes % 8.3 % (1.7-9.3); Neutrophils # 11.5 K/mm3 (1.8-7.8); Neutrophils % 75.8 % (37.0-80.0); Platelet Count 394 K/mm3 (142-424); Red Blood Count 4.72 M/mm3 (4.20-5.40); Red Cell Distribution Width 19.9 % (11.5-17.5); White Blood Count 15.1 K/mm3 (4.8-10.8)
[2022-12-31 06:47] LABS: MANUAL DIFFERENTIAL MANUAL DIFFERENTIAL (MANUAL DIFF)
[2022-12-31 06:48] LABS: Chloride 97 mmol/L (98-107); Potassium 4.3 mmoL/L (3.5-5.1); Sodium 136 mmol/L (136-145)
[2022-12-31 06:51] LABS: Alanine Aminotransferase 11 U/L (12-78); Albumin Level 3.5 g/dl (3.5-5.0); Albumin/Globulin Ratio 1.1 (1.1-1.8); Alkaline Phosphatase 86 U/L (38-126); Anion Gap 7.3 mEq/L (5-15); Aspartate Amino Transferase 22 U/L (14-36); Bilirubin,Total 0.5 mg/dl (0.2-1.3); Blood Urea Nitrogen 12 mg/dl (7-17); Carbon Dioxide 36 mmol/L (22.0-30.0); Creatinine Clearance Estimated 59 mL/min (50-200); Estimated Glomerular Filt Rate 70 ml/min (>60); GFR (African American) 84 ML/MIN (>60); Globulin 3.2 g/dL (1.3-3.2); Total Protein,Serum 6.7 g/dl (6.3-8.2)
[2022-12-31 06:52] LABS: Calcium 8.2 mg/dl (8.4-10.2); Glucose 113 mg/dl (74-100)
[2022-12-31 06:59] LABS: POC Glucose,Bedside 114 (70-110)
[2022-12-31 07:09] LABS: Lymphocytes % 14 % (10-50); Monocytes % 8 % (2-9); Neutrophils % 78 % (42-76); Total Cells Counted 100
[2022-12-31 07:10] LABS: Anisocytosis 1+; Hypochromasia 1+; Ovalocytes 1+; Platelet Estimate Slight Increase
--- NOTE | 2022-12-31 09:32 | EXP.ACUTE.PN ---
Subjective *Date: 12/31/22 *Time: 09:32 Interval history: Patient is much more alert than yesterday. Has not eaten breakfast but does drink some coffee. States she does not normally eat breakfast. She states she feels much better. Wonders about going home today. Medical Exam Vital signs and Labs for Last 24 Hours: Vital Signs Temp Pulse Pulse Resp BP Pulse Ox 12/31/22 07:21 98.5 F 95 H 16 117/58 L 92 L 12/31/22 05:50 100 H 12/30/22 20:00 110 H 12/30/22 20:00 112 H 95 12/31/22 04:00 98.4 F 99 H 18 110/63 99 12/31/22 01:25 100 H 12/31/22 00:00 98.6 F 96 H 18 113/57 L 99 12/30/22 19:59 97.9 F 112 H 18 107/59 L 95 12/30/22 16:00 120 H 12/30/22 15:02 98.4 F 119 H 18 121/52 L 91 L 12/30/22 12:46 98.4 F 127 H 20 147/62 H 92 L Intake and Output 12/30/22 12/31/22 12/31/22 19:59 03:59 11:59 Intake Total 0 / 180 180 / 180 Output Total 200 / 1050 400 / 1050 450 / 1050 Balance -200 / -870 -400 / -870 -270 / -870 Intake: Intake, Oral Amount 0 / 180 180 / 180 Output: Output, Urine Amount 200 / 1050 400 / 1050 450 / 1050 Other: Number of Unmeasured Voids 1 0 Weight 166 lb 8 oz 171 lb 2 oz Patient Weight 12/31/22 11:59 Weight 171 lb 2 oz Laboratory Results - last 24 hr 12/30/22 13:57: Urine Color Yellow, Urine Appearance Sl cloudy, Urine pH 6.0, Ur Specific [place] 1.025, Urine Protein 2+, Urine Glucose (UA) Negative, Urine Ketones Negative, Urine Blood 2+, Urine Nitrate Positive, Urine Bilirubin Negative, Urine Urobilinogen 1.0, Ur Leukocyte Esterase 1+ A, Urine RBC 10-20, Urine WBC 10-20, Ur Squamous Epith Cells 3-5, Urine Bacteria 4+ 12/30/22 14:16: Troponin I 0.04 H 12/30/22 16:25: POC Glucose 119 H 12/30/22 16:45: Troponin I 0.04 H 12/31/22 06:05: POC Glucose 114 H 12/31/22 06:22: WBC 15.1 H, RBC 4.72, Hgb 10.3 L, Hct 35.9 L, MCV 76.0 L, MCH 21.7 L, MCHC 28.6 L, RDW 19.9 H, Plt Count 394, MPV 8.4, Neut % (Auto) 75.8, Lymph % (Auto) 14.4, [place] % (Auto) 8.3, Eos % (Auto) 1.0, Baso % (Auto) 0.5, Neut # (Auto) 11.5 H, Lymph # (Auto) 2.2, [place] # (Auto) 1.3 H, Eos # (Auto) 0.2, Baso # (Auto) 0.1, Total Counted 100, Neutrophils % (Manual) 78 H, Lymphocytes % (Manual) 14, Monocytes % (Manual) 8, Platelet Estimate Slight increase, Hypochromasia 1+, Anisocytosis 1+, Ovalocytes 1+ 12/31/22 06:22: Sodium 136, Potassium 4.3, Chloride 97 L, Carbon Dioxide 36 H, Anion Gap 7.3, BUN 12, Creatinine 0.80 D, Estimated Creat Clear 59, Estimated GFR 70, Est GFR ( Amer) 84 D, Glucose 113 H, Calcium 8.2 L, Total Bilirubin 0.5, AST 22, ALT 11 L, Alkaline Phosphatase 86, Total Protein 6.7, Albumin 3.5 D, Globulin 3.2, Albumin/Globulin Ratio 1.1 I & O for Labs for Last 24 Hours: Intake & Output 12/28/22 12/29/22 12/30/22 12/31/22 11:59 11:59 11:59 11:59 Intake Total 180 / 180 Output Total 1050 / 1050 Balance -870 / -870 Weight 171 lb 2 oz Microbiology Reports for the Last 24 Hours: Microbiology 12/30/22 20:35 Sputum - Expectorated Sputum Gram Stain - Final 12/30/22 13:57 Urine,Clean Catch Urine Culture - Preliminary Gram Negative Rods Comment:: Patient is alert, oriented x3. Lungs have some rhonchi but clears with a deep breath. She is wearing oxygen and is comfortable. Abdomen soft. Heart rate regular. No edema or clubbing, Scud boots in place. Assessment and Plan *Assessment and plan (1) UTI (urinary tract infection): Status: Acute Qualifiers: Hematuria presence: without hematuria Urinary tract infection type: site unspecified Qualified Code(s): N39.0 - Urinary tract infection, site not specified Category: Medical Code(s): N39.0 - Urinary tract infection, site not specified (2) HTN (hypertension): Status: Chronic Category: Medical Code(s): I10 - Essential (primary) hypertension (3) Tobacco abuse: Status: Ch
--- NOTE | 2022-12-31 09:54 | HMH.OTEV ---
OT Inpatient Evaluation Rehab OT IP Evaluation Start: 12/31/22 07:53 Freq: ONCE Status: Active Protocol: [facility] (Rec: 12/31/22 09:54 [facility] [id number]) Rehab OT IP Assessment Subjective History Pt oriented x 4 on arrival. Pt agreeable to engage in therapy evaluation. Pt was admitted on 12/30/22 due to COPD exacerbation. Prior to being in the hospital, pt lived at home a lone. Pt claims she was independent with all ADLs such as dressing , bathing, and feeding. Pt did have a DATA PROCESSING SPECIALIST come in 3 times a week in order to assist with cleaning the house and other IADLs. Pt did not use a cane or walker during ambulation, but has a walker just in case she needs it. She has no stairs in her home. Pt has the following medical history: Angina, class IV COPD (chronic obstructive pulmonary disease) Diabetes History of left heart catheterization HLD (hyperlipidemia) Hypothyroid Nephrolithiasis Nonspecific ST-T changes Smoker SOB (shortness of breath) Tachycardia Tobacco abuse Subjective I feel better than I did. Objective Patient Orientation Person,Place,Birthday,Month Upper Extremity Gross ROM WFL Bed Mobility bed mobility-scooting,bed mobility - supine/sit,bed mobility - rolling Assist Level Supervision/Stand by Transfer Training Sit/Stand Transfer Assist Level Supervision/Stand by Chair Transfer Ability Supervision/Stand by Chair Transfer Technique Sit to/from Ambulatory Chair Transfer Assistive Devices None Lower Body Dressing Ability Standby Assistance Rehab OT IP prob,goals,plan Problems Date of Evaluation: 12/31/22 Rehab Potential Rehab Potential [place]
--- NOTE | 2022-12-31 10:38 | HMH.PTEV ---
Physical Therapy Evaluation Rehab PT IP Evaluation Start: 12/31/22 07:51 Freq: .once Status: Active Protocol: Document 12/31/22 09:00 LATASHA (Rec: 12/31/22 10:38 PHOYADIRA [id number]) Subjective/History History History 77 yowf adm to [facility] with COPD exac, UTI with hx of HTN, Anxiety, and intrathecal pain pump. She reports she lives alone, but has someone that comes in to help her 3 days a week with her needs. She reports she is generally independent with all mobility without AD, but does have a RW . She has no steps to enter the home. Subjective Subjective Pt with no c/o this am. Rehab PT IP Eval Objective Appearance Patient Behavior Appropriate Patient Orientation Person,Place,Time Difficulty following instructions none Speech Pattern Clear Ambulation Patient Able to Ambulate Yes Ambulation Observation IP General Gait Pattern Observation No Deviations/Normal Ambulation Distance (feet) 20 Ambulation Assistive Device None Ambulation Ability Supervision/Stand by Balance Ability to Arise Able, uses arms to help Sitting Balance Steady, safe Standing Balance Steady, wide stance Dynamic Sitting Balance Ability Good Dynamic Standing Balance Ability Good Transfers Bed Transfer Ability Supervision/Stand by Chair Transfer Ability Supervision/Stand by Sit to Stand Bed Transfer Ability Supervision/Stand by Sit to Stand Chair Transfer Ability Supervision/Stand by ROM All Extremities PT ROM Status WFL MMT All Extremities PT MMT WFL Rehab PT IP prob,goals,plan Problems Date of Evaluation: 12/31/22 Discharge Plan PT Discharge Plan Pt is currently appropriate to return home once medically stable, no inpatient therapy needs at this time. G -code Required No Eval Complexity Eval Charge Codes 98169 - Moderate Complexity PHYSICIAN CERTIFICATION: I certify the specified therapy services for Sindy Lema are required, authorized, and reviewed every 30 days.
--- NOTE | 2022-12-31 13:59 | PC.NURSE ---
Pt was encouraged to eat a little more of her lunch tray. Pt stated the soup looked greasy. Pt was asked if she would like something else and she stated no. Pt stated that she was leaving today no matter what. She is currently sitting up in her chair. Call light within reach.
--- NOTE | 2022-12-31 14:17 | EXP.DC.SUM ---
General Admission date:: 12/30/22 Discharge date: 12/31/22 HPI HPI HPI: 77 year old female with history HTN, COPD/asthma, anxiety, hypothyroidism, tobacco use disorder, chronic respiratory failure, chronic pain with intrathecal morphine pain pump who was started on macrobid for presumed UTI last week presented to PCP office with weakness and SOA that began a few days ago. She was found to be lethargic and in a WC which is not her baseline. Labs- WBC 14.6, Creatinine 1.1; CXR no acute pathology. Resp PCR negative. Direct admitted for IVF's and further evaluation. Found to have UTI and very mildly elevated trop 0.04. EKG ST with no acute ischemia. Telemetry was placed. Ceftriaxone was added. Hospital Course Hospital Course Hospital Course: Patient was admitted. Had evidence of a UTI and at the time of discharge gram-negative rods were noted on her culture but sensitivity panels and identification of the organism had not yet been achieved. Patient improved very nicely overnight with IV fluids. TENA had resolved and her extremely minimally elevated troponin levels were also normalized. She had no chest pain, shortness of air, chest x-ray was clear and labs were essentially normal. Patient has a host of medications that could cause somnolence and confusion and these were held yesterday evening and this morning. This afternoon she feels good, has eaten most of her lunch and wishes to be discharged home. In fact she told me that if I did not discharge her she would walk out of here to my house. Plan will be to discharge home and I have scheduled short-term follow-up on January 03 in our office and have instructed her to bring all of her medicines with her as there is some discrepancy between her hospital med list and our office med list. We will at that point try to cut back some of her medications and reduce some of her polypharmacy. I will do cefdinir 300 twice daily for 5 days to treat UTI while we are awaiting culture. Of note, PT and OT evaluated patient this morning and felt she was safe for discharge and did her activities independently. Exam Data for Last 24 hours Vital signs and Labs for Last 24 Hours: Temp Pulse Resp BP Pulse Ox 98.5 F 95 H 16 117/58 L 92 L 12/31/22 07:21 12/31/22 08:00 12/31/22 07:21 12/31/22 07:21 12/31/22 07:21 Laboratory Results - last 24 hr 12/30/22 13:57: Urine Color Yellow, Urine Appearance Sl cloudy, Urine pH 6.0, Ur Specific Haywood 1.025, Urine Protein 2+, Urine Glucose (UA) Negative, Urine Ketones Negative, Urine Blood 2+, Urine Nitrate Positive, Urine Bilirubin Negative, Urine Urobilinogen 1.0, Ur Leukocyte Esterase 1+ A, Urine RBC 10-20, Urine WBC 10-20, Ur Squamous Epith Cells 3-5, Urine Bacteria 4+ 12/30/22 14:16: Troponin I 0.04 H 12/30/22 16:25: POC Glucose 119 H 12/30/22 16:45: Troponin I 0.04 H 12/31/22 06:05: POC Glucose 114 H 12/31/22 06:22: WBC 15.1 H, RBC 4.72, Hgb 10.3 L, Hct 35.9 L, MCV 76.0 L, MCH 21.7 L, MCHC 28.6 L, RDW 19.9 H, Plt Count 394, MPV 8.4, Neut % (Auto) 75.8, Lymph % (Auto) 14.4, Brule % (Auto) 8.3, Eos % (Auto) 1.0, Baso % (Auto) 0.5, Neut # (Auto) 11.5 H, Lymph # (Auto) 2.2, Brule # (Auto) 1.3 H, Eos # (Auto) 0.2, Baso # (Auto) 0.1, Total Counted 100, Neutrophils % (Manual) 78 H, Lymphocytes % (Manual) 14, Monocytes % (Manual) 8, Platelet Estimate Slight increase, Hypochromasia 1+, Anisocytosis 1+, Ovalocytes 1+ 12/31/22 06:22: Sodium 136, Potassium 4.3, Chloride 97 L, Carbon Dioxide 36 H, Anion Gap 7.3, BUN 12, Creatinine 0.80 D, Estimated Creat Clear 59, Estimated GFR 70, Est GFR ( Amer) 84 D, Glucose 113 H, Calcium 8.2 L, Total Bilirubin 0.5, AST 22, ALT 11 L, Alkaline Phosphatase 86, Total Protein 6.7, Albumin 3.5 D, Globulin 3.2, Albumin/Globulin Ratio 1.1 I & O for Last 24 hours: Intake & Output 12/29/22 12/30/22 12/31/22 01/01/23 11:59 11:59 11:59 11:59 Intake Total 180 / 180 240 / 240 Output Total 1175 / 1175 100 / 100 Balance -
--- NOTE | 2022-12-31 15:23 | PC.NURSE ---
Pt left floor in WC accompanied by staff and family member.
[2022-12-31 16:10] LABS: POC Glucose,Bedside 112 (70-110)
--- NOTE | 2023-01-01 14:00 | CARE MANAGER ---
Contacted patient related to hospital discharge. She states she feels much better. She picked up her antibiotic and is aware of follow up appointments. She denies any questions or concerns. REMINGTON Asencio
== END 2022-12-31 15:23 | disposition home or self-care (01) ==
PROVIDERS: Nurse Practitioner Family; Admitting Provider Internal Medicine Adolescent Medicine; PCP Internal Medicine Adolescent Medicine; Visit Provider Internal Medicine Adolescent Medicine
DX: J44.1 Chronic obstructive pulmonary disease with (acute) exacerbation (principal); I10 Essential (primary) hypertension; E11.9 Type 2 diabetes mellitus without complications; F41.1 Generalized anxiety disorder; E78.5 Hyperlipidemia, unspecified; G89.4 Chronic pain syndrome; F17.210 Nicotine dependence, cigarettes, uncomplicated; Z79.899 Other long term (current) drug therapy; E03.9 Hypothyroidism, unspecified; Z79.84 Long term (current) use of oral hypoglycemic drugs; J96.10 Chronic respiratory failure, unspecified whether with hypoxia or hypercapnia; N39.0 Urinary tract infection, site not specified; Z20.822 Contact with and (suspected) exposure to COVID-19
CPT/HCPCS: G0378; G0379; 36415; 71046; 80053; 81001; 82962; 84484; 85007; 85025; 87040; 87070; 87077; 87086; 87088; 87186; 87205; 87581; 87632; 87798; 93005; 97162; 97165; C9803; J0696; U0003; U0005

== ENCOUNTER → 2023-01-12 13:13 | Outpatient (POV) | payer MEDICARE, MEDICAID, SELFPAY ==
--- NOTE | 2023-01-12 14:02 | EXP.PAIN.SOA ---
[facility] Pain Management SOAP Note Subjective:: Patient is a pleasant 77-year-old female who presents today for follow-up of bilateral SI injections on 12/16/2022. We are currently treating the patient for degenerative disc disease of lumbar spine with lumbar radiculopathy symptoms, lumbar postlaminectomy syndrome, sacroiliitis. Today she states that she has had at least 85% improvement following these injections and feels like there is still continuing to provide additional relief. She does rate her pain a 0 out of 10 today. She states that she has noticed additional edema in her lower legs following her intrathecal pain pump placement. Patient states that she does put her feet up as soon as she gets home however they continuously stay swollen. Patient denies any additional heart related issues or prior history of edema in her lower extremities. Patient is currently managed with morphine 1 mg/mL with a daily dose of 0.2323 mg/day. She is also managed with alprazolam 1 mg 3 times a day and gabapentin 300 mg 3 times a day from her primary care doctor. Patient denies any side effects from these medications. Her Eric is [id number]. Its been reviewed and appropriate. Review of Systems: General: No recent weight changes, no fever, no sleep disturbances Respiratory: No cough, no shortness of air, no recurring pulmonary infections Cardiovascular/peripheral vascular: No chest pain, no palpitations, no edema, no shortness of breath Gastrointestinal: No new onset incontinence, normal bowel movements reported Genitourinary: No new onset incontinence Musculoskeletal: Low back pain, bilateral leg edema Psychiatric: [Normal mood/affect] Neurological: [Denies weakness in extremities], [denies balance issues] Objective:: Physical Exam: General: Alert and oriented x3, no acute distress, pleasant and cooperative Lungs: Respirations even and unlabored, symmetrical chest expansion Eyes: PERRL Musculoskeletal: Flexion and extension of lumbar [spine] somewhat guarded secondary to pain, [antalgic gait noted] Neurological: Speech clear, no gross sensory deficit Skin: Pitting edema 1+ bilateral lower extremities Assessment:: Degenerative disc disease of lumbar spine with lumbar radiculopathy symptoms, lumbar postlaminectomy syndrome, sacroiliitis Plan:: Patient has had significant improvement following her SI injections and does not require any additional injective therapy at this time. I have discussed with the patient that we will change her intrathecal medication to Dilaudid 1 mg/mL at her next intrathecal refill date due to her bilateral lower extremity edema. Patient agrees with this plan of care. Patient is scheduled for her next intrathecal refill and reprogram on her before February 24, 2023. We will see the patient back in the clinic at the next intrathecal refill. Patient has been instructed to contact the clinic with any concerns before the next appointment. Dr. Hinojosa has reviewed this note and agrees with this plan of care. This note was dictated using voice recognition software and make contain errors or omissions. -- It Is medically necessary for this patient to continue to have their intrathecal pump refilled at regular intervals. This patient had an intrathecal pain pump implanted after meeting criteria of chronic intractable pain for greater than 3 months and failing conservative treatments. Patient has committed and been compliant to the treatment plan and all planned follow up care. Since implantation of the intrathecal pain pump, the patient has had decreased pain and been more functional. Oral medications have been reduced including intake of oral opioids. Patient continues to do well with intrathecal therapy with decrease in pain symptoms and increase in functional status. Stopping intrathecal medications can lead to life threatening withdrawal, seizures, cardiac arrest, severe pain, and possible . Pumps that are not refilled at regular intervals can be damages a
[2023-01-12 14:44] VITALS: BP 98/39; PULSE 78; RESP 20; BMI 28.8
== END ==
PROVIDERS: PCP Nurse Practitioner Family; Visit Provider Nurse Practitioner Family
DX: M51.16 Intervertebral disc disorders with radiculopathy, lumbar region (principal); M46.1 Sacroiliitis, not elsewhere classified; M96.1 Postlaminectomy syndrome, not elsewhere classified
CPT/HCPCS: 99212; G0463

== ENCOUNTER → 2023-01-23 11:59 | Outpatient (CLI) | payer MEDICARE, SELFPAY ==
--- NOTE | 2023-01-23 12:05 | XR_ITS ---
FINAL REPORT CLINICAL HISTORY: Pre-op knee sx, 0 chest complaints, dx COPD. COMPARISON: 12/30/2022 FINDINGS: There are underlying emphysematous changes. No acute pulmonary density is present. No significant pleural effusion. There is no pneumothorax. The heart is normal in size. The mediastinum is unremarkable. IMPRESSION: Emphysema without acute process. Reviewed, Interpreted and Dictated by Ender Thomas MD Transcribed by Lynn Knight Authenticated and [facility]
--- NOTE | 2023-01-23 12:39 | ECG_ITS ---
APPROVED REPORT Exam: Resting ECG HR:93 bpm ECG Measurements Heart Rate 93 AXES DE 157 P 85 QRSd 77 QRS 95 QT 362 T 72 QTc 413 Conclusion SINUS RHYTHM WITH OCCASIONAL SUPRAVENTRICULAR PREMATURE COMPLEXES BORDERLINE RIGHT AXIS DEVIATION [QRS AXIS > 90] POSSIBLE RIGHT VENTRICULAR CONDUCTION DELAY [RSR (QR) IN V1/V2] BORDERLINE ECG UNCONFIRMED REPORT Electronically signed by : Delvin Newton MD 01/23/2023 14:59:53
[2023-01-23 13:01] LABS: Basophils # 0.1 K/mm3 (0-0.2); Basophils % 0.8 % (0.1-2.0); Eosinophils # 0.2 K/mm3 (0.0-0.4); Eosinophils % 2.5 % (0.1-12.0); Hematocrit 39.6 % (37.0-47.0); Hemoglobin 11.7 g/dL (12.2-16.2); Lymphocytes # 3.4 K/mm3 (0.7-4.5); Lymphocytes % 39.7 % (10-50); Mean Corpuscular HGB Conc 29.6 g/dL (31.8-35.4); Mean Corpuscular Hemoglobin 22.8 pg (27.0-31.2); Mean Corpuscular Volume 77.1 fl (81-99); Mean Platelet Volume 8.6 fl (7.4-10.4); Monocytes # 0.5 K/mm3 (0.1-1.0); Monocytes % 6.4 % (1.7-9.3); Neutrophils # 4.3 K/mm3 (1.8-7.8); Neutrophils % 50.6 % (37.0-80.0); Platelet Count 394 K/mm3 (142-424); Red Blood Count 5.14 M/mm3 (4.20-5.40); Red Cell Distribution Width 21.5 % (11.5-17.5); White Blood Count 8.4 K/mm3 (4.8-10.8)
[2023-01-23 13:26] LABS: Blood Urea Nitrogen 19 mg/dl (7-17); Calcium 9.1 mg/dl (8.4-10.2); Carbon Dioxide 31 mmol/L (22.0-30.0); Chloride 90 mmol/L (98-107); Estimated Glomerular Filt Rate 81 ml/min (>60); GFR (African American) 98 ML/MIN (>60); Glucose 100 mg/dl (74-100); Sodium 137 mmol/L (136-145)
== END ==
PROVIDERS: PCP Nurse Practitioner Family; Visit Provider Surgery
DX: L98.9 Disorder of the skin and subcutaneous tissue, unspecified (principal); J44.9 Chronic obstructive pulmonary disease, unspecified
CPT/HCPCS: 36415; 71046; 80048; 85025; 93005

== ENCOUNTER 2023-01-23 12:44 | Day surgery (SDC) | payer MEDICARE, SELFPAY ==
[2023-01-23 13:05] VITALS: BP 101/63; PULSE 103; RESP 20; TEMP 36.7; O2SAT 91; BMI 27.1
[2023-01-23 13:10] VITALS: BP 91/43; PULSE 87; RESP 18; O2SAT 98
--- NOTE | 2023-01-23 13:26 | EXP.PAIN.PRO ---
Procedure Date: 01/23/23 Time: 13:26 Anesthesiologist:: Benja Hinojosa MD Complications:: None Pre-procedure Diagnosis:: Postlaminectomy syndrome lumbar spine with current side effects of lower extremity swelling with intrathecal morphine infusion Post-procedure Diagnosis:: Same Indications for Procedure:: This patient is a pleasant 77-year-old white female who we are treating for low back pain with lumbar radiculopathy and postlaminectomy syndrome lumbar spine. She has had increasing swelling of lower extremities with her current intrathecal morphine infusion. She is not getting adequate pain relief. We are switching over to intrathecal Dilaudid today. She is currently going at 0.23 mg/day of intrathecal morphine. We will switch over to intrathecal Dilaudid and started at 0.05 mg/day. Procedure Details:: Informed consent was obtained and the risks and benefits of the procedure was explained to the patient. The patient was taken to the procedure room. The pump was interrogated. The area over the pump was prepped using ChloraPrep. The pump was accessed with a 22-gauge needle. Approximately 9 mL's of the intrathecal solution was withdrawn and discarded. The pump was then refilled with 20 mL's of intrathecal Dilaudid 1 mg per mill. The pump was interrogated and the infusion was started at 0.05 mg/day. Bridge bolus is 38 hours and 49 minutes. The patient tolerated the procedure well with no complication. Plan and Disposition:: We will see her back next week we will reassess her symptomology and make adjustments if needed.
[2023-01-23 13:30] VITALS: BP 104/60; PULSE 108; RESP 20
== END 2023-01-23 13:30 | disposition home or self-care (01) ==
PROVIDERS: PCP Nurse Practitioner Family; Visit Provider Anesthesiology
DX: M96.1 Postlaminectomy syndrome, not elsewhere classified (principal); M54.16 Radiculopathy, lumbar region; M54.50 Low back pain, unspecified
CPT/HCPCS: 36415; 62370; 71046; 80048; 85025; 93005

== ENCOUNTER 2023-01-27 12:59 | Outpatient (CLI) | payer MEDICARE, SELFPAY ==
[2023-01-27 13:07] VITALS: BP 112/62; PULSE 114; RESP 20; TEMP 36.7; O2SAT 92
[2023-01-27 13:45] VITALS: BP 108/59; PULSE 99; RESP 20; O2SAT 94
== END 2023-01-27 13:45 | disposition home or self-care (01) ==
LOC: INF 13:00
PROVIDERS: Visit Provider Internal Medicine Medical Oncology
DX: D50.9 Iron deficiency anemia, unspecified (principal)
CPT/HCPCS: 96365; J1756

== ENCOUNTER → 2023-01-29 10:51 | Outpatient (POV) | payer MEDICARE, SELFPAY ==
--- NOTE | 2023-01-29 11:22 | EXP.PAIN.PRO ---
Procedure Date: 01/29/23 Time: 11:23 Anesthesiologist:: Cathie Benjamin APRN Complications:: None Pre-procedure Diagnosis:: Degenerative disc disease of lumbar spine with lumbar radiculopathy symptoms, lumbar postlaminectomy syndrome, sacroiliitis, right shoulder pain, knee pain Post-procedure Diagnosis:: Same Indications for Procedure:: Today she rates her pain a 2 out of 10. Patient denies any new trauma or injury. Patient denies any change location or type of pain she experiences at our last visit we did change her intrathecal medication over from morphine to Dilaudid due to increased bilateral lower extremity swelling. Today she states that she has had significant improvement in her pain as well as the swelling. She states she was up all day on her feet earlier this week and had no edema whatsoever. Patient is currently managed with Dilaudid 1 mg/mL with a daily dose of 0.05 mg/day. She denies any side effects from this medication. She does state that her pain today is more related to her right shoulder and also has some knee pain. Patient denies any specific trauma or injury that initially led to her shoulder pain however it is a debilitating aching, throbbing sensation that is worse with increased activity. She cannot tolerate much movement or range of motion and can even carry her purse due to this extreme sensitivity of the joint. Patient denies any recent imaging of this joint. She does have a history of osteoporosis and she states that her family has a longstanding history of shoulder problems including rotator cuff tears. Patient is currently managed with alprazolam 1 mg 3 times a day and gabapentin 300 mg 3 times a day from her primary care doctor. Patient denies any side effects from these medications. Her Eric is [id number]. Its been reviewed and appropriate. Physical Exam: General: Alert and oriented x3, no acute distress, pleasant and cooperative Lungs: Respirations even and unlabored, symmetrical chest expansion Eyes: PERRL Musculoskeletal: Flexion and extension of right shoulder somewhat guarded secondary to pain, [antalgic gait noted] Neurological: Speech clear, no gross sensory deficit Procedure Details:: Informed consent was obtained and the risk and benefits of the procedure were explained to the patient. Patient was taken to the procedure room where noninvasive monitoring was placed including noninvasive blood pressure cuff and pulse oximeter. Patient's pump was interrogated and was reprogrammed to Dilaudid 0.055 mg/day. The patient tolerated the procedure well with no complications. Plan and Disposition:: Patient is experiencing significant pain in her right shoulder with limited range of motion. I will order x-ray imaging of this joint as well as proceed forward with ordering a CT without contrast. Patient does have an intrathecal device that would have to be emptied prior to an MRI as well as she has the issue of not being able to tolerate prolonged positioning due to her worsening shoulder pain. I have discussed with her that she may benefit from a intra-articular injection or suprascapular nerve block in the future if her shoulder pain is merely related to arthritis. I have counseled her that if she does have a tear or significant injury that we will plan on sending a referral to an orthopedic physician. I have also discussed with the patient that she may benefit from a peripheral nerve stimulator in the future if this continues to be an ongoing chronic pain location. We will discuss these options in more detail at a later date. Patient did tolerate her intrathecal increase with no complications. Patient will return to clinic in 1 month following imaging for reevaluation of symptoms and plan of care. We will see the patient back in the clinic at the next intrathecal refill. Patient has been instructed to contact the clinic with any concerns before the next appointment. Dr. Hinojosa has reviewed this note and agrees w
[2023-01-29 12:09] VITALS: BP 96/48; PULSE 99; RESP 18; O2SAT 96; BMI 27.1
== END | disposition home or self-care (01) ==
PROVIDERS: PCP Nurse Practitioner Family; Visit Provider Nurse Practitioner Family
DX: Z45.1 Encounter for adjustment and management of infusion pump (principal); M51.16 Intervertebral disc disorders with radiculopathy, lumbar region; M96.1 Postlaminectomy syndrome, not elsewhere classified; M46.1 Sacroiliitis, not elsewhere classified; M25.511 Pain in right shoulder; M25.569 Pain in unspecified knee
CPT/HCPCS: 62368; 99213; G0463

== ENCOUNTER → 2023-01-29 11:34 | Outpatient (CLI) | payer MEDICARE, SELFPAY ==
--- NOTE | 2023-01-29 11:41 | XR_ITS ---
FINAL REPORT CLINICAL HISTORY: RT SHOULDER PAIN COMPARISON: None FINDINGS: RIGHT SHOULDER Three views demonstrate no acute fracture or dislocation. There is mild degenerative change of the AC and glenohumeral joints. The visualized bony structures are well aligned. No soft tissue abnormality is seen. IMPRESSION: No acute bony abnormality. Reviewed, Interpreted and Dictated by Ghulam Ramirez III, MD Transcribed by Shalonda Jameson Authenticated and [facility]
== END ==
PROVIDERS: PCP Nurse Practitioner Family; Visit Provider Nurse Practitioner Family
DX: M25.511 Pain in right shoulder (principal)
CPT/HCPCS: 62368; 73030; 99213; G0463

== ENCOUNTER 2023-02-03 12:58 | Outpatient (CLI) | payer MEDICARE, SELFPAY ==
[2023-02-03 13:14] VITALS: BP 104/64; PULSE 114; RESP 22; TEMP 36.7; O2SAT 94
[2023-02-03 13:55] VITALS: BP 100/64; PULSE 85; RESP 20; O2SAT 95
== END 2023-02-03 14:00 | disposition home or self-care (01) ==
LOC: INF 12:59
PROVIDERS: PCP Nurse Practitioner Family; Visit Provider Internal Medicine Medical Oncology
DX: D50.9 Iron deficiency anemia, unspecified (principal)
CPT/HCPCS: 96365; J1756

== ENCOUNTER 2023-02-10 12:51 | Outpatient (CLI) | payer MEDICARE, SELFPAY ==
[2023-02-10 13:08] VITALS: BP 98/53; PULSE 117; RESP 18; TEMP 36.5; O2SAT 93
[2023-02-10 13:54] VITALS: BP 101/58; PULSE 98; RESP 18; O2SAT 94
== END 2023-02-10 13:56 | disposition home or self-care (01) ==
LOC: INF 12:52
PROVIDERS: PCP Nurse Practitioner Family; Visit Provider Internal Medicine Medical Oncology
DX: D50.9 Iron deficiency anemia, unspecified (principal)
CPT/HCPCS: 96365; J1756

== ENCOUNTER → 2023-02-13 14:25 | Outpatient (CLI) | payer MEDICARE, SELFPAY ==
--- NOTE | 2023-02-13 14:29 | CT_ITS ---
FINAL REPORT CLINICAL HISTORY: Right shoulder pain FINDINGS: CT RIGHT SHOULDER WITHOUT CONTRAST TECHNIQUE: Axial reformatted images were obtained of the right shoulder. This study was performed with techniques to keep radiation doses as low as reasonably achievable, (ALARA). Individualized dose reduction techniques using automated exposure control or adjustment of mA and/or kV according to the patient's size were employed. FINDINGS: There is no acute fracture or dislocation. The glenohumeral joint space is preserved. There are mild hypertrophic changes of osteoarthritis at the acromioclavicular joint. Visualized lung hampton are clear. IMPRESSION: No acute fracture or dislocation. Mild hypertrophic changes of osteoarthritis at the acromioclavicular joint. Reviewed, Interpreted and Dictated by Herb Turner MD Transcribed by Susanne Cabrera Authenticated and . [facility]
--- NOTE | 2023-02-13 14:29 | XR_ITS ---
FINAL REPORT CLINICAL HISTORY: Right shoulder pain FINDINGS: RIGHT SHOULDER Three views demonstrate no acute fracture or dislocation. There are mild hypertrophic changes of the acromioclavicular joint. The glenohumeral joint space is preserved. The soft tissues are unremarkable. IMPRESSION: Degenerative changes with no acute bony abnormality. Reviewed, Interpreted and Dictated by Herb Turner MD Transcribed by Susanne Cabrera Authenticated and [facility]
== END ==
PROVIDERS: PCP Nurse Practitioner Family; Visit Provider Nurse Practitioner Family
DX: M25.511 Pain in right shoulder (principal)
CPT/HCPCS: 73030; 73200

== ENCOUNTER 2023-02-16 08:49 | Day surgery (SDC) | payer MEDICARE, SELFPAY ==
[2023-02-13 14:48] VITALS: BMI 27.1
[2023-02-16 09:12] VITALS: BP 114/61; PULSE 101; RESP 18; TEMP 36.1; O2SAT 91
[2023-02-16 09:22] LABS: POC Glucose,Bedside 118 (70-110)
[2023-02-16 11:33] VITALS: BP 88/49; PULSE 89; RESP 15; TEMP 36.4; O2SAT 87
--- NOTE | 2023-02-16 11:33 | P.OP_ITS ---
Date of procedure: 02/16/23 Pre-op Diagnosis:: Suspicious skin lesion right lateral thigh Post-op Diagnosis:: Same Procedure performed:: Excision of suspicious skin lesion right lateral thigh (excisional length 6.0 cm) with intermediate complexity closure Surgeon:: Ghulam Coto MD PHYSICIAN COMPENSATION ANALYST:: Arik Saldana Anesthesia: MAC and local Estimated blood loss (mL): 5 Operative findings:: Approximately 2 cm raised darkly pigmented irregular lesion. Operative note:: Patient was taken the operating room. She was positioned in supine position. Adequate intravenous sedation was achieved. The area was prepped and draped in the standard surgical fashion. Lesion was marked with a skin marker for planned limited grossly negative margins. Local anesthetic was infiltrated. Full- thickness skin incision was made as a 6 cm ellipse. The skin lesion with surrounding normal skin was dissected free from the underlying subcutaneous tissues using electrocautery. Lesion was marked with suture to kate the short suture more superiorly and proximally. Long suture was lateral. This was sent off as a specimen. Hemostasis was achieved with electrocautery. Deep dermal tissues were closed with interrupted 2-0 Vicryl. Skin was closed with 3-0 nylon. Clean dry sterile dressing was applied. Condition: stable Disposition: PACU Complications:: None immediately apparent
[2023-02-16 11:43] VITALS: BP 131/66; PULSE 85; RESP 16; O2SAT 100
[2023-02-16 11:53] VITALS: BP 133/66; PULSE 86; RESP 17; O2SAT 97
[2023-02-16 12:03] VITALS: BP 116/62; PULSE 90; RESP 18; O2SAT 97
[2023-02-16 12:33] VITALS: BP 108/55; PULSE 106; RESP 18; O2SAT 93
--- NOTE | 2023-02-16 13:00 | SUR.PHASEII ---
1220-received report from Aroldo MACEDO at this time
== END 2023-02-16 12:55 | disposition home or self-care (01) ==
PROVIDERS: PCP Nurse Practitioner Family; Visit Provider Surgery
DX: C44.712 Basal cell carcinoma of skin of right lower limb, including hip (principal); E11.9 Type 2 diabetes mellitus without complications; F17.210 Nicotine dependence, cigarettes, uncomplicated
CPT/HCPCS: 11606; 12032; 82962; 88305; 96374

== ENCOUNTER 2023-02-17 12:46 | Outpatient (CLI) | payer MEDICARE, SELFPAY ==
[2023-02-17 13:10] VITALS: BP 97/62; PULSE 110; RESP 18; O2SAT 95
[2023-02-17 13:50] VITALS: BP 112/69; PULSE 105; RESP 18; O2SAT 95
== END 2023-02-17 13:50 | disposition home or self-care (01) ==
LOC: INF 12:47
PROVIDERS: PCP Nurse Practitioner Family; Visit Provider Internal Medicine Medical Oncology
DX: D50.9 Iron deficiency anemia, unspecified (principal)
CPT/HCPCS: 96365; J1756

== ENCOUNTER 2023-02-24 09:50 | Outpatient (CLI) | payer MEDICARE, SELFPAY ==
[2023-02-24 10:10] VITALS: BP 96/58; PULSE 72; RESP 18; O2SAT 94
[2023-02-24 10:52] VITALS: BP 102/59; PULSE 74; RESP 18; O2SAT 93
== END 2023-02-24 10:53 | disposition home or self-care (01) ==
LOC: INF 09:51
PROVIDERS: PCP Nurse Practitioner Family; Visit Provider Internal Medicine Medical Oncology
DX: D50.9 Iron deficiency anemia, unspecified (principal)
CPT/HCPCS: 96365; J1756

== ENCOUNTER → 2023-02-26 12:43 | Outpatient (POV) | payer MEDICARE, SELFPAY ==
--- NOTE | 2023-02-26 13:14 | EXP.PAIN.SOA ---
[facility] Pain Management SOAP Note Subjective:: Patient is a pleasant 77-year-old female who presents today for follow-up of CT of her right shoulder. We are currently treating the patient for degenerative disc disease of lumbar spine with lumbar radiculopathy symptoms, lumbar postlaminectomy syndrome, sacroiliitis, right shoulder pain. Today she rates her an 8 out of 10. Patient denies any new trauma or injury. She does state that she continues to have significant pain in her right shoulder and now it is causing additional issues in her left shoulder. Patient states that she did have a steroid injection from her primary care doctor and it did help for approximately 2 days but she states she is back to her baseline today. She does describe this as a constant aching, throbbing sensation that is worse with increased activity. She states it does interfere with her ability to perform activities of daily living such as cooking and cleaning and that she has even had some trouble driving due to weakness in her arms. Patient is interested in injective therapy for this. She is currently managed with Dilaudid 1 mg/mL with a daily dose of 0.055 mg/day. Patient states that this medication is providing significant relief at its current dosage and that she states she continues to have no swelling in her legs. Patient is also managed with alprazolam 1 mg 3 times a day and gabapentin 300 mg 3 times a day from her primary care doctor. Patient denies any side effects from these medications. Her Eric is [phone]. Its been reviewed and appropriate. Review of Systems: General: No recent weight changes, no fever, no sleep disturbances Respiratory: No cough, no shortness of air, no recurring pulmonary infections Cardiovascular/peripheral vascular: No chest pain, no palpitations, no edema, no shortness of breath Gastrointestinal: No new onset incontinence, normal bowel movements reported Genitourinary: No new onset incontinence Musculoskeletal: Bilateral shoulder pain Psychiatric: [Normal mood/affect] Neurological: [Denies weakness in extremities], [denies balance issues] Objective:: Physical Exam: General: Alert and oriented x3, no acute distress, pleasant and cooperative Lungs: Respirations even and unlabored, symmetrical chest expansion Eyes: PERRL Musculoskeletal: Flexion and extension of bilateral shoulders somewhat guarded secondary to pain, [antalgic gait noted] Neurological: Speech clear, no gross sensory deficit FINDINGS: CT RIGHT SHOULDER WITHOUT CONTRAST? TECHNIQUE:? Axial reformatted images were obtained of the right shoulder. This study was performed with techniques to keep radiation doses as low as reasonably achievable, (ALARA). Individualized dose reduction techniques using automated exposure control or adjustment of mA and/or kV according to the patient's size were employed.? FINDINGS:? There is no acute fracture or dislocation. The glenohumeral joint space is preserved.? There are mild hypertrophic changes of osteoarthritis at the acromioclavicular joint.? Visualized lung hampton are clear. IMPRESSION: No acute fracture or dislocation.? Mild hypertrophic changes of osteoarthritis at the acromioclavicular joint. Reviewed, Interpreted and Dictated by Herb Turner MD Transcribed by Susanne Cabrera Authenticated and . [facility] Assessment:: Degenerative disc disease of lumbar spine with lumbar radiculopathy symptoms, lumbar postlaminectomy syndrome, sacroiliitis, bilateral shoulder pain, bilateral shoulder osteoarthritis Plan:: Patient is experiencing significant pain in her bilateral shoulders with limited range of motion. I have discussed with patient that she may benefit from bilateral shoulder intra-articular injections. Risk and benefits were discussed with patient and she would like to proceed forward with this plan of care. Patient's CT imaging did just show osteoarth
[2023-02-26 13:17] VITALS: RESP 18; TEMP 36.6; O2SAT 93; BMI 26.6
== END ==
PROVIDERS: PCP Nurse Practitioner Family; Visit Provider Nurse Practitioner Family
DX: M51.16 Intervertebral disc disorders with radiculopathy, lumbar region; M96.1 Postlaminectomy syndrome, not elsewhere classified; M46.1 Sacroiliitis, not elsewhere classified; M19.011 Primary osteoarthritis, right shoulder; M19.012 Primary osteoarthritis, left shoulder
CPT/HCPCS: 99212; G0463

== ENCOUNTER 2023-03-03 11:26 | Day surgery (SDC) | payer MEDICARE, SELFPAY ==
[2023-03-03 11:46] VITALS: BP 115/60; PULSE 110; RESP 20; TEMP 36.6; O2SAT 94; BMI 26.6
--- NOTE | 2023-03-03 11:59 | P.PCN_ITS ---
Procedure Date: 03/03/23 Time: 11:50 Anesthesiologist:: Ian Zambrano CRNA Complications:: None Pre-procedure Diagnosis:: Osteoarthritis bilateral shoulders. Chronic bilateral shoulder pain. Post-procedure Diagnosis:: Same. Indications for Procedure:: Very pleasant 77-year-old female comes our clinic today for bilateral intra- articular shoulder injections. Patient describes bilateral shoulder pain as constant, dull, aching. Patient has difficulty with range of motion. Patient has adequate strength in both arms. She rates pain 8/10. Procedure Details:: Procedure Details: Bilateral shoulder intra-articular injection Informed consent was obtained risk and benefits of the procedure were explained to the patient. Patient was taken to the procedure room. The bilateral shoulder was prepped using ChloraPrep. A 25-gauge needle was used first anteriorly, laterally, and then posteriorly to inject 10 mL bupivacaine 0.25% and Depo- Medrol 40 mg. Patient tolerated procedure well with no complications. Plan and Disposition:: Patient was discharged without incident.
[2023-03-03 12:01] VITALS: BP 101/58; PULSE 116; RESP 18; O2SAT 94
== END 2023-03-03 12:01 | disposition home or self-care (01) ==
PROVIDERS: PCP Nurse Practitioner Family; Visit Provider Nurse Anesthetist, Certified Registered
DX: M19.011 Primary osteoarthritis, right shoulder (principal); M19.012 Primary osteoarthritis, left shoulder; M25.511 Pain in right shoulder; M25.512 Pain in left shoulder; G89.29 Other chronic pain
CPT/HCPCS: 20610; J1040

== ENCOUNTER → 2023-03-18 13:32 | Outpatient (POV) | payer MEDICARE, SELFPAY ==
--- NOTE | 2023-03-18 13:39 | EXP.PAIN.SOA ---
[facility] Pain Management SOAP Note Subjective:: Patient is a pleasant 77-year-old female who presents today for follow-up of bilateral shoulder intra-articular injections on 03/03/2023. We are currently treating the patient for degenerative disc disease of lumbar spine with lumbar radiculopathy symptoms, lumbar postlaminectomy syndrome, sacroiliitis, right shoulder pain. Today she rates her an 10 out of 10. Patient denies any new trauma or injury. She does state that she continues to have significant pain in her right shoulder and now it is causing additional issues in her left shoulder. Patient states that she did have a steroid injection from her primary care doctor and it did help for approximately 2 days but she states she is back to her baseline today. She does describe this as a constant aching, throbbing sensation that is worse with increased activity. She states it does interfere with her ability to perform activities of daily living such as cooking and cleaning and that she has even had some trouble driving due to weakness in her arms. Patient is interested in injective therapy for this. She is currently managed with Dilaudid 1 mg/mL with a daily dose of 0.055 mg/day. Patient states that this medication is providing significant relief at its current dosage and that she states she continues to have no swelling in her legs. Patient is also managed with alprazolam 1 mg 3 times a day and gabapentin 300 mg 3 times a day from her primary care doctor. Patient denies any side effects from these medications. Her Eric is [phone]. Its been reviewed and appropriate. Review of Systems: General: No recent weight changes, no fever, no sleep disturbances Respiratory: No cough, no shortness of air, no recurring pulmonary infections Cardiovascular/peripheral vascular: No chest pain, no palpitations, no edema, no shortness of breath Gastrointestinal: No new onset incontinence, normal bowel movements reported Genitourinary: No new onset incontinence Musculoskeletal: Bilateral shoulder pain Psychiatric: [Normal mood/affect] Neurological: [Denies weakness in extremities], [denies balance issues] Objective:: Physical Exam: General: Alert and oriented x3, no acute distress, pleasant and cooperative Lungs: Respirations even and unlabored, symmetrical chest expansion Eyes: PERRL Musculoskeletal: Flexion and extension of [] [spine] somewhat guarded secondary to pain, [antalgic gait noted] Neurological: Speech clear, no gross sensory deficit PFSH PFSH Disclaimer: The information contained in this section may have been updated after the patient was seen, as this information can be updated by other users. Medical History Angina, class IV COPD (chronic obstructive pulmonary disease) Diabetes History of left heart catheterization HLD (hyperlipidemia) Hypothyroid Nephrolithiasis Nonspecific ST-T changes Smoker SOB (shortness of breath) Tachycardia Tobacco abuse Surgical History History of bladder surgery History of section History of colon surgery History of spinal surgery History of surgical removal of skin lesion History of tonsillectomy Family History Other No significant family history Social History Smoking Status: Current every day smoker tobacco type: cigarettes packs per day: 1 second hand exposure: Yes alcohol intake: never counseling provided: provider counseling substance use type: denies use current occupational status: retired Travel in the last 8 weeks: None household members: children housing: house current occupational exposures/hazards: No caffeine: No
--- NOTE | 2023-03-18 13:56 | EXP.PAIN.PRO ---
Procedure Date: 03/18/23 Time: 13:56 Anesthesiologist:: Cathie Benjamin APRN Complications:: None Pre-procedure Diagnosis:: Degenerative disc disease of lumbar spine with lumbar radiculopathy symptoms, lumbar postlaminectomy syndrome, sacroiliitis, bilateral shoulder pain Post-procedure Diagnosis:: Same Indications for Procedure:: Patient is a pleasant 77-year-old female who presents today for follow-up of bilateral intra-articular shoulder injections on 03/03/2023 and intrathecal pain pump reprogram and adjustment. The patient is being treated for degenerative disc disease of lumbar spine with lumbar radiculopathy symptoms, lumbar postlaminectomy syndrome, sacroiliitis, bilateral shoulder pain. Patient is currently being managed with Dilaudid 1 mg/mL with a daily dose of 0.055 mg/day. Patient denies any side effects from this medication. Patient rates pain a 10 out of 10. She denies any new trauma or injury. She states following these injections she did not have any additional relief. Patient continues to state her shoulders cause an aching, throbbing sensation with limited range of motion and do affect her ability to perform activities of daily living. Patient was ordered compounding cream in the past however it was not covered by insurance and she did not proceed forward with it. Patient is also managed with alprazolam 1 mg 3 times a day from her primary care doctor. Drug screen is appropriate. [facility] [phone] has been reviewed and is appropriate. Physical exam General: Alert and oriented x3, no acute distress, pleasant and cooperative Lungs: Respirations even and unlabored, symmetrical chest expansion Eyes: PERRL Musculoskeletal: Flexion and extension of bilateral shoulders somewhat guarded secondary to pain, [antalgic gait noted] Neurological: Speech clear, no gross sensory deficit Procedure Details:: Informed consent was obtained and the risk and benefits of the procedure were explained to the patient. Patient was taken to the procedure room where noninvasive monitoring was placed including noninvasive blood pressure cuff and pulse oximeter. Patient's pump was interrogated and was reprogrammed to Dilaudid 0.0605 mg/day. The patient tolerated the procedure well with no complications. Plan and Disposition:: Patient continues to experience significant pain with limited range of motion of her bilateral shoulders. I have discussed with the patient that I will send in a referral for [facility] orthopedics related to her bilateral shoulder pain. I have also counseled the patient in the future she may get beneficial relief with a suprascapular nerve block. We will discuss this at later visits. Patient tolerated her intrathecal increase with no complications and was discharged neurologically intact. Patient will return to clinic in 2 weeks for possible readjustment and reevaluation of symptoms. Patient has been instructed to contact the clinic with any concerns before the next appointment. Dr. Hinojosa has reviewed this note and agrees with this plan of care. This note was dictated using voice recognition software and make contain errors or omissions. -- It Is medically necessary for this patient to continue to have their intrathecal pump refilled at regular intervals. This patient had an intrathecal pain pump implanted after meeting criteria of chronic intractable pain for greater than 3 months and failing conservative treatments. Patient has committed and been compliant to the treatment plan and all planned follow up care. Since implantation of the intrathecal pain pump, the patient has had decreased pain and been more functional. Oral medications have been reduced including intake of oral opioids. Patient continues to do well with intrathecal therapy with decrease in pain symptoms and increase in functional status. Stopping intrathecal medications can lead to life threatening withdrawal, seizures, cardiac arrest, severe pain, and
[2023-03-18 15:02] VITALS: BP 101/74; PULSE 103; RESP 20; BMI 26.6
== END | disposition home or self-care (01) ==
PROVIDERS: PCP Nurse Practitioner Family; Visit Provider Nurse Practitioner Family
DX: M51.16 Intervertebral disc disorders with radiculopathy, lumbar region (principal); M96.1 Postlaminectomy syndrome, not elsewhere classified; M46.1 Sacroiliitis, not elsewhere classified; M25.511 Pain in right shoulder; M25.512 Pain in left shoulder
CPT/HCPCS: 62368

== ENCOUNTER → 2023-04-01 13:49 | Outpatient (POV) | payer MEDICARE, SELFPAY ==
--- NOTE | 2023-04-01 14:18 | P.PCN_ITS ---
Procedure Date: 04/01/23 Time: 14:19 Anesthesiologist:: Cathie Benjamin APRN Complications:: None Pre-procedure Diagnosis:: Degenerative disc disease of lumbar spine with lumbar radiculopathy symptoms, lumbar postlaminectomy syndrome, sacroiliitis, bilateral shoulder pain Post-procedure Diagnosis:: Same Indications for Procedure:: Patient is a pleasant 77-year-old female who presents today for intrathecal pain pump reprogramming adjustment. The patient is being treated for degenerative d isc disease of lumbar spine with lumbar radiculopathy symptoms, lumbar postlaminectomy syndrome, sacroiliitis, bilateral shoulder pain. Patient is currently being managed with Dilaudid 1 mg/mL with a daily dose of 0.0606 mg/day. Patient denies any side effects from this medication. Patient rates pain a 10 out of 10. She is also managed with gabapentin 300 mg 3 times a day and alprazolam 1 mg 3 times a day from her primary care doctor. drug screen is appropriate. Eric [phone] has been reviewed and is appropriate. Physical exam General: Alert and oriented x3, no acute distress, pleasant and cooperative Lungs: Respirations even and unlabored, symmetrical chest expansion Eyes: PERRL Musculoskeletal: Flexion and extension of lumbar [spine] somewhat guarded secondary to pain, [antalgic gait noted] Neurological: Speech clear, no gross sensory deficit Procedure Details:: Informed consent was obtained and the risk and benefits of the procedure were explained to the patient. Patient was taken to the procedure room where noninvasive monitoring was placed including noninvasive blood pressure cuff and pulse oximeter. Patient's pump was interrogated and was reprogrammed to Dilaudid 0.0666 mg/day. The patient tolerated the procedure well with no complications. Plan and Disposition:: Patient tolerated her intrathecal pain pump increase with no complication and was discharged neurologically intact. Patient will return to clinic in 2 weeks for reevaluation of symptoms and possible readjustment of intrathecal pain pump. Patient has been instructed to contact the clinic with any concerns before the next appointment. Dr. Hinojosa has reviewed this note and agrees with this plan of care. This note was dictated using voice recognition software and make contain errors or omissions. -- It Is medically necessary for this patient to continue to have their intrathecal pump refilled at regular intervals. This patient had an intrathecal pain pump implanted after meeting criteria of chronic intractable pain for greater than 3 months and failing conservative treatments. Patient has committed and been compliant to the treatment plan and all planned follow up care. Since implantation of the intrathecal pain pump, the patient has had decreased pain and been more functional. Oral medications have been reduced including intake of oral opioids. Patient continues to do well with intrathecal therapy with decrease in pain symptoms and increase in functional status. Stopping intra thecal medications can lead to life threatening withdrawal, seizures, cardiac arrest, severe pain, and possible . Pumps that are not refilled at regular intervals can be damages and cause and need for replacement. We continually titrate dose and concentration to optimize pain relief and function. We are limited in concentration for certain drugs to safely deliver medications through the pump and stay within the recommendations from the Polyanalges[employer] Consensus Committee Guidelines. Depending on dose and concentration these pumps may need to be refilled sooner than 3 months as we titrate.
[2023-04-01 15:23] VITALS: BP 96/69; PULSE 109; RESP 18; O2SAT 92; BMI 26.4
== END | disposition home or self-care (01) ==
PROVIDERS: PCP Nurse Practitioner Family; Visit Provider Nurse Practitioner Family
DX: M51.16 Intervertebral disc disorders with radiculopathy, lumbar region (principal); M96.1 Postlaminectomy syndrome, not elsewhere classified; M46.1 Sacroiliitis, not elsewhere classified; M25.511 Pain in right shoulder; M25.512 Pain in left shoulder
CPT/HCPCS: 62368; 99213; G0463

== ENCOUNTER → 2023-04-06 15:40 | Outpatient (CLI) | payer MEDICARE, SELFPAY ==
[2023-04-06 16:19] LABS: Basophils # 0.1 K/mm3 (0-0.2); Basophils % 0.9 % (0.1-2.0); Eosinophils # 0.2 K/mm3 (0.0-0.4); Eosinophils % 1.8 % (0.1-12.0); Hematocrit 47.7 % (37.0-47.0); Hemoglobin 14.9 g/dL (12.2-16.2); Lymphocytes # 3.9 K/mm3 (0.7-4.5); Mean Corpuscular HGB Conc 31.2 g/dL (31.8-35.4); Mean Corpuscular Hemoglobin 28.1 pg (27.0-31.2); Mean Platelet Volume 7.8 fl (7.4-10.4); Monocytes # 0.6 K/mm3 (0.1-1.0); Monocytes % 5.7 % (1.7-9.3); Neutrophils % 51.6 % (37.0-80.0); Platelet Count 311 K/mm3 (142-424); Red Cell Distribution Width 18.9 % (11.5-17.5); White Blood Count 9.6 K/mm3 (4.8-10.8)
[2023-04-06 17:11] LABS: Alanine Aminotransferase 18 U/L (12-78); Albumin Level 4.4 g/dl (3.5-5.0); Albumin/Globulin Ratio 1.4 (1.1-1.8); Alkaline Phosphatase 68 U/L (38-126); Anion Gap 13.1 mEq/L (5-15); Aspartate Amino Transferase 28 U/L (14-36); Bilirubin,Total 0.4 mg/dl (0.2-1.3); Blood Urea Nitrogen 19 mg/dl (7-17); Carbon Dioxide 38 mmol/L (22.0-30.0); Chloride 92 mmol/L (98-107); Estimated Glomerular Filt Rate 54 ml/min (>60); GFR (African American) 65 ML/MIN (>60); Globulin 3.2 g/dL (1.3-3.2); Glucose 121 mg/dl (74-100); Potassium 5.1 mmoL/L (3.5-5.1); Sodium 138 mmol/L (136-145); Total Protein,Serum 7.6 g/dl (6.3-8.2)
[2023-04-06 20:45] LABS: Occult Blood,Stool Negative (Negative)
== END ==
PROVIDERS: PCP Nurse Practitioner Family; Visit Provider Nurse Practitioner Family
DX: K92.1 Melena (principal)
CPT/HCPCS: 36415; 80053; 82272; 85025; G0328

== ENCOUNTER → 2023-04-09 13:14 | Outpatient (CLI) | payer MEDICARE, SELFPAY ==
--- NOTE | 2023-04-09 13:25 | XR_ITS ---
FINAL REPORT CLINICAL HISTORY: lt shoulder pain COMPARISON: None FINDINGS: LEFT SHOULDER Three views demonstrate no acute fracture or dislocation. There is mild degenerative change of the acromioclavicular joint, as well as moderate degenerative change of the glenohumeral joint. The visualized bony structures are well aligned. No soft tissue abnormality is seen. IMPRESSION: No acute process. Reviewed, Interpreted and Dictated by Ghulam Ramirez III, MD Transcribed by Sapna Giron Authenticated and [facility]
== END ==
PROVIDERS: PCP Nurse Practitioner Family; Visit Provider Orthopaedic Surgery
DX: M25.512 Pain in left shoulder (principal)
CPT/HCPCS: 73030

== ENCOUNTER → 2023-04-15 13:36 | Outpatient (POV) | payer MEDICARE, SELFPAY ==
--- NOTE | 2023-04-15 13:57 | EXP.PAIN.PRO ---
Procedure Date: 04/15/23 Time: 13:57 Anesthesiologist:: Cathie Benjamin APRN Complications:: None Pre-procedure Diagnosis:: Degenerative disc disease of lumbar spine with lumbar radiculopathy symptoms, lumbar postlaminectomy syndrome, sacroiliitis, bilateral shoulder pain. Post-procedure Diagnosis:: Same Indications for Procedure:: Patient is a pleasant 77-year-old female who presents today for follow-up. Today she rates her pain a 5 out of 10. Patient does state that she has had improvement from her last visit where she was given an intrathecal increase. Patient is currently managed with Dilaudid 1 mg/mL with a daily dose of 0.0666 mg/day. She denies any side effects from this medication. She states following this increase she has been able to increase her activity with decreased pain symptoms. She states yesterday she did not have the pain when she was getting up out of bed like she normally does and that she was able to run errands and do activities all day long with decreased symptoms. She does state that she has been back to see Dr. Benjamin's office for her shoulder pain and that he does believe it is more related to her neck. She states that he is scheduling her for additional CT of her C-spine with contrast. She does also state that she is already scheduled for CT of her abdomen and bowels from her primary care doctor related to black stools and some incontinence. Patient states she has had a colonoscopy approximately 1 year ago with no significant findings. Patient is currently managed with gabapentin 300 mg 3 times a day and alprazolam 1 mg 3 times a day from her primary care doctor. Her Eric is [phone]. It has been reviewed and appropriate. Physical Exam: General: Alert and oriented x3, no acute distress, pleasant and cooperative Lungs: Respirations even and unlabored, symmetrical chest expansion Eyes: PERRL Musculoskeletal: Flexion and extension of lumbar [spine] somewhat guarded secondary to pain, [antalgic gait noted] Neurological: Speech clear, no gross sensory deficit Procedure Details:: Informed consent was obtained and the risk and benefits of the procedure were explained to the patient. Patient was taken to the procedure room where noninvasive monitoring was placed including noninvasive blood pressure cuff and pulse oximeter. Patient's pump was interrogated and was reprogrammed to Dilaudid 0.82949 mg/day. The patient tolerated the procedure well with no complications. Plan and Disposition:: Patient tolerated her intrathecal increase with no complications and was discharged neurologically intact. Patient will return to clinic in 1 month for reevaluation of symptoms and plan of care. Patient has been instructed to contact the clinic with any concerns before the next appointment. Dr. Hinojosa has reviewed this note and agrees with this plan of care. This note was dictated using voice recognition software and make contain errors or omissions. -- It Is medically necessary for this patient to continue to have their intrathecal pump refilled at regular intervals. This patient had an intrathecal pain pump implanted after meeting criteria of chronic intractable pain for greater than 3 months and failing conservative treatments. Patient has committed and been compliant to the treatment plan and all planned follow up care. Since implantation of the intrathecal pain pump, the patient has had decreased pain and been more functional. Oral medications have been reduced including intake of oral opioids. Patient continues to do well with intrathecal therapy with decrease in pain symptoms and increase in functional status. Stopping intrathecal medications can lead to life threatening withdrawal, seizures, cardiac arrest, severe pain, and possible . Pumps that are not refilled at regular intervals can be damages and cause and need for replacement. We continually titrate dose and concentration to optimize pain relief and function. We are l
[2023-04-15 15:26] VITALS: BP 95/74; PULSE 111; RESP 18; O2SAT 93; BMI 18.4
== END | disposition home or self-care (01) ==
PROVIDERS: Visit Provider Nurse Practitioner Family
DX: M51.16 Intervertebral disc disorders with radiculopathy, lumbar region (principal); M96.1 Postlaminectomy syndrome, not elsewhere classified; M46.1 Sacroiliitis, not elsewhere classified; M25.511 Pain in right shoulder; M25.512 Pain in left shoulder
CPT/HCPCS: 62368; 99213; G0463

== ENCOUNTER → 2023-04-28 08:37 | Outpatient (CLI) | payer MEDICARE, SELFPAY ==
--- NOTE | 2023-04-28 08:38 | CT_ITS ---
FINAL REPORT CLINICAL HISTORY: Cervical Spine pain COMPARISON: 02/19/2022 FINDINGS: Axial CT images of the cervical spine were obtained without contrast. Sagittal and coronal reformatted images were also obtained. This study was performed with techniques to keep radiation doses as low as reasonably achievable (ALARA). Individualized dose reduction techniques using automated exposure control or adjustment of mA and/or kV according to the patient's size were employed. There is no evidence of fracture or dislocation. The bony alignment is normal. Mild and moderate degenerative changes is stable. There is no evidence of canal stenosis. No paraspinous soft tissue abnormality is seen. Limited images of the upper thorax are unremarkable. C2-3: Unremarkable. C3-4: Small central disc protrusion. C4-5: Annular disc bulge. C5-6: Disc osteophyte complex. C6-7: Disc osteophyte complex. Mild right neuroforaminal narrowing. C7-T1: Unremarkable. IMPRESSION: Findings similar to the prior exam. Reviewed, Interpreted and Dictated by Ghulam Ramirez III, MD Transcribed by Sahlonda Jameson Authenticated and [facility]
--- NOTE | 2023-04-28 08:42 | CT_ITS ---
FINAL REPORT CLINICAL HISTORY: WEIGHT LOSS COMPARISON: 02/18/2022 FINDINGS: CT OF THE ABDOMEN AND PELVIS WITH CONTRAST Axial CT images of the abdomen and pelvis were obtained after the administration of IV contrast. Coronal and sagittal reformatted images were also obtained and reviewed. This study was performed with techniques to keep radiation doses as low as reasonably achievable (ALARA). Individualized dose reduction techniques using automated exposure control or adjustment of mA and/or kV according to the patient's size were employed. Abdomen: The lung bases are clear. The heart is normal in size. There is a 5 mm low-attenuation mass in the posterior aspect of the right hepatic lobe, favor a small cyst. No other hepatic masses are identified. There are postoperative changes of a prior cholecystectomy and no biliary ductal dilatation is present. The spleen is unremarkable. No adrenal mass is present. The pancreas has an unremarkable appearance. There are small bilateral renal masses present, favor cysts. The aorta is normal in caliber. There is no free fluid or adenopathy. No mass or abnormal fluid collection is seen. There is a intrathecal catheter identified with streak artifact from an implanted pump in the right posterior paraspinal soft tissues. Mild vascular calcifications are identified. Pelvis: The appendix is not well-visualized. The uterus has been surgically removed. The urinary bladder is unremarkable. No inflammatory process is seen. There is no evidence of mass or adenopathy. There is no evidence of bowel obstruction. IMPRESSION: No evidence of acute intra-abdominal process. 5 mm low-attenuation mass posterior aspect of the right right hepatic lobe, favor cyst. Reviewed, Interpreted and Dictated by Ghulam Ramirez III, MD Transcribed by Sapna Giron Authenticated and [facility]
--- NOTE | 2023-04-28 08:42 | CT_ITS ---
FINAL REPORT CLINICAL HISTORY: WEIGHT LOSS COMPARISON: 02/22/2022 FINDINGS: Axial CT images of the chest were obtained with contrast. Coronal and sagittal reformatted images were also obtained. This study was performed with techniques to keep radiation doses as low as reasonably achievable, (ALARA). Individualized dose reduction techniques using automated exposure control or adjustment of mA and/or KV according to the patient's size were employed. There are multiple small mediastinal and hilar nodes, partially improved since the prior CT examination, favor reactive adenopathy. Mild changes of emphysema are noted. Mild scarring is present bilaterally. On lung window images, no pulmonary mass or dominant pulmonary nodule is identified. No localized pulmonary inflammatory process is identified. Limited images of the upper abdomen reveal no mass or localized inflammatory process. IMPRESSION: No acute abnormality identified as described. Reviewed, Interpreted and Dictated by Ghulam Ramirez III, MD Transcribed by Sapna Giron Authenticated and [facility]
[2023-04-28 09:38] LABS: Basophils # 0.1 K/mm3 (0-0.2); Eosinophils # 0.2 K/mm3 (0.0-0.4); Eosinophils % 2.4 % (0.1-12.0); Hematocrit 42.9 % (37.0-47.0); Hemoglobin 13.5 g/dL (12.2-16.2); Lymphocytes # 3.9 K/mm3 (0.7-4.5); Mean Corpuscular HGB Conc 31.4 g/dL (31.8-35.4); Mean Corpuscular Hemoglobin 29.8 pg (27.0-31.2); Mean Corpuscular Volume 94.9 fl (81-99); Mean Platelet Volume 8.1 fl (7.4-10.4); Monocytes # 0.5 K/mm3 (0.1-1.0); Monocytes % 6.1 % (1.7-9.3); Neutrophils # 3.3 K/mm3 (1.8-7.8); Neutrophils % 41.4 % (37.0-80.0); Platelet Count 254 K/mm3 (142-424); Red Blood Count 4.52 M/mm3 (4.20-5.40); Red Cell Distribution Width 16.6 % (11.5-17.5); White Blood Count 7.9 K/mm3 (4.8-10.8)
[2023-04-28 11:21] LABS: Iron 85 ug/dL (37-170)
[2023-04-28 11:31] LABS: Total Iron Binding Capacity 285 ug/dL (265-497)
[2023-04-28 11:57] LABS: Ferritin 89.5 ng/ml (11.1-264)
== END ==
PROVIDERS: PCP Nurse Practitioner Family; Visit Provider Orthopaedic Surgery
DX: M54.2 Cervicalgia (principal); R53.1 Weakness; Z71.3 Dietary counseling and surveillance; R63.4 Abnormal weight loss
CPT/HCPCS: 36415; 71260; 72125; 74177; 82728; 83540; 83550; 85025; Q9967

== ENCOUNTER → 2023-05-25 13:05 | Outpatient (POV) | payer MEDICARE, SELFPAY ==
--- NOTE | 2023-05-25 13:45 | EXP.PAIN.PRO ---
Procedure Date: 05/25/23 Time: 13:45 Anesthesiologist:: Cathie Benjamin APRN Complications:: None Pre-procedure Diagnosis:: Degenerative disc disease of lumbar spine with lumbar radiculopathy symptoms, lumbar postlaminectomy syndrome, sacroiliitis, bilateral shoulder pain, myofascial pain Post-procedure Diagnosis:: Same Indications for Procedure:: Patient is a pleasant 77-year-old female who presents today for intrathecal adjustment and reprogram. We are currently treating the patient for degenerative disc disease of lumbar spine with lumbar radiculopathy symptoms, lumbar postlaminectomy syndrome, sacroiliitis, bilateral shoulder pain, myofascial pain. Today she rates her pain a 5 out of 10. Patient denies any new trauma or injury. She states she continues to have low back pain including pain around her pump that is tender to touch. Patient describes this as an aching, throbbing sensation that is worse with increased activity. Patient states that she cannot tolerate leaning up against a chair or even driving due to the pain around the site. Patient is currently managed with Dilaudid 1 mg/mL with a daily dose of 0.0733 mg/day. Patient denies any side effects from this medication. She is also managed with alprazolam 1 mg 3 times a day and gabapentin 300 mg 3 times a day from her primary care doctor. Patient denies any side effects from this medication. Patient does state that she has had updated cervical imaging that did show arthritis throughout. Patient is asking whether or not if there is any medications that worked best for this. Patient denies any heart or kidney issues. Her Eric is [id number]. Its been reviewed and appropriate. Physical Exam: General: Alert and oriented x3, no acute distress, pleasant and cooperative Lungs: Respirations even and unlabored, symmetrical chest expansion Eyes: PERRL Musculoskeletal: Flexion and extension of lumbar [spine] somewhat guarded secondary to pain, [antalgic gait noted] point tenderness noted along right lumbar paraspinous muscles surrounding her intrathecal pump site Neurological: Speech clear, no gross sensory deficit Procedure Details:: Informed consent was obtained and the risk and benefits of the procedure were explained to the patient. Patient was taken to the procedure room where noninvasive monitoring was placed including noninvasive blood pressure cuff and pulse oximeter. Patient's pump was interrogated and was reprogrammed to 0.0807 mg/day. The patient tolerated the procedure well with no complications. Plan and Disposition:: Patient tolerated her intrathecal increase with no complications and was discharged neurologically intact. I have discussed with the patient due to her point tenderness around her lumbar paraspinous muscles that she may benefit from trigger point injections at this site. Risk and benefits were explained to the patient and she would like to proceed forward with this plan of care. I will also send in a 14-day supply of meloxicam 7.5 mg daily. I have counseled the patient to not take any NSAIDs while taking this medication and to take it with food to minimize GI upset. Patient will be scheduled for trigger point injections of her right lumbar paraspinous muscles surrounding her intrathecal pain pump. Patient has been instructed to contact the clinic with any concerns before the next appointment. Dr. Hinojosa has reviewed this note and agrees with this plan of care. This note was dictated using voice recognition software and make contain errors or omissions. -- It Is medically necessary for this patient to continue to have their intrathecal pump refilled at regular intervals. This patient had an intrathecal pain pump implanted after meeting criteria of chronic intractable pain for greater than 3 months and failing conservative treatments. Patient has committed and been compliant to the treatment plan and all planned follow up care. Since implantation of the intrathecal azul
[2023-05-25 14:30] VITALS: BP 113/69; PULSE 48; RESP 18; O2SAT 96; BMI 25.4
== END ==
PROVIDERS: PCP Nurse Practitioner Family; Visit Provider Nurse Practitioner Family
DX: M51.16 Intervertebral disc disorders with radiculopathy, lumbar region (principal); M96.1 Postlaminectomy syndrome, not elsewhere classified; M46.1 Sacroiliitis, not elsewhere classified; M25.511 Pain in right shoulder; M25.512 Pain in left shoulder; M79.10 Myalgia, unspecified site
CPT/HCPCS: 62368; 99213; G0463

== ENCOUNTER → 2023-06-10 10:20 | Outpatient (POV) | payer MEDICARE, SELFPAY ==
[2023-06-10 11:27] VITALS: BP 90/46; PULSE 88; RESP 20; O2SAT 92; BMI 27.4
--- NOTE | 2023-06-10 11:31 | EXP.PAIN.PRO ---
Procedure Date: 06/10/23 Time: 11:31 Anesthesiologist:: Cathie Benjamin APRN Complications:: None Pre-procedure Diagnosis:: Degenerative disc disease of lumbar spine with lumbar radiculopathy symptoms, lumbar postlaminectomy syndrome, sacroiliitis, bilateral shoulder pain, myofascial pain Post-procedure Diagnosis:: Same Indications for Procedure:: Patient is a pleasant 77-year-old female who presents today for follow-up. We are currently treating the patient for degenerative disc disease of lumbar spine with lumbar radiculopathy symptoms, lumbar postlaminectomy syndrome, sacroiliitis, bilateral shoulder pain, myofascial pain. Today she rates her pain a 8 out of 10. Patient denies any new trauma or injury. She states she has been experiencing increasing pain in all of her joints and that she is unsure whether or not if it is possibly her fibromyalgia acting up. At her last visit she was scheduled for trigger point injections however she had to cancel this appointment due to coming down with a virus/cold. Patient does state she is better today and at this time she feels like the tenderness that she was experiencing around her pump is not as bothersome. Patient is currently managed with Dilaudid 1 mg/mL with a daily dose of 0.0807 mg/day. Patient denies any side effects from this medication. At our last visit we did also prescribe meloxicam 7.5 mg daily with a 2-week supply of this medication. Patient states she did not get this medication. Patient denies any heart or kidney issues. Patient was counseled to discontinue all NSAIDs while taking this medication. Patient states that she has been previously on meloxicam in the past and that it did help. Patient is also managed with alprazolam 1 mg 3 times a day and gabapentin 300 mg 3 times a day from her primary care provider. Her Eric is [id number]. Its been reviewed and appropriate. Physical Exam: General: Alert and oriented x3, no acute distress, pleasant and cooperative Lungs: Respirations even and unlabored, symmetrical chest expansion Eyes: PERRL Musculoskeletal: Flexion and extension of lumbar [spine] somewhat guarded secondary to pain, [antalgic gait noted] Neurological: Speech clear, no gross sensory deficit Procedure Details:: Informed consent was obtained and the risk and benefits of the procedure were explained to the patient. Patient was taken to the procedure room where noninvasive monitoring was placed including noninvasive blood pressure cuff and pulse oximeter. Patient's pump was interrogated and was reprogrammed to Dilaudid 0.0967 mg/day. The patient tolerated the procedure well with no complications. Plan and Disposition:: Patient was increased by 20% in her intrathecal pump. Patient tolerated this increase with no complications and was discharged neurologically intact. I will send in the meloxicam 7.5 mg daily and provide a 2-week supply of this medication. I have counseled the patient to contact our office and let us know if she would like additional refills on this. Patient will return to clinic in 2 weeks for reevaluation of symptoms and plan of care. Patient has been instructed to contact the clinic with any concerns before the next appointment. Dr. Hinojosa has reviewed this note and agrees with this plan of care. This note was dictated using voice recognition software and make contain errors or omissions. -- It Is medically necessary for this patient to continue to have their intrathecal pump refilled at regular intervals. This patient had an intrathecal pain pump implanted after meeting criteria of chronic intractable pain for greater than 3 months and failing conservative treatments. Patient has committed and been compliant to the treatment plan and all planned follow up care. Since implantation of the intrathecal pain pump, the patient has had decreased pain and been more functional. Oral medications have been reduced including intake of oral opioids. Patient continues
== END | disposition home or self-care (01) ==
PROVIDERS: PCP Nurse Practitioner Family; Visit Provider Nurse Practitioner Family
DX: M51.16 Intervertebral disc disorders with radiculopathy, lumbar region (principal); M96.1 Postlaminectomy syndrome, not elsewhere classified; M46.1 Sacroiliitis, not elsewhere classified; M25.511 Pain in right shoulder; M25.512 Pain in left shoulder; M79.10 Myalgia, unspecified site; Z97.8 Presence of other specified devices
CPT/HCPCS: 62368; 99212; G0463

== ENCOUNTER 2023-07-07 12:58 | Day surgery (SDC) | payer MEDICARE, SELFPAY ==
[2023-07-07 13:09] VITALS: BP 120/75; PULSE 113; PULSE 114; RESP 18; O2SAT 91; O2SAT 92
[2023-07-07 13:11] VITALS: BP 113/68; PULSE 93; RESP 18; TEMP 36.4; O2SAT 93; BMI 27.1
[2023-07-07 13:30] VITALS: BP 98/65; PULSE 113; RESP 16; O2SAT 93
--- NOTE | 2023-07-07 13:36 | EXP.PAIN.PRO ---
Procedure Date: 07/07/23 Time: 13:20 Anesthesiologist:: Ian Zambrano CRNA Complications:: None Pre-procedure Diagnosis:: Degenerative disc lumbar spine multilevels. Lumbar radiculopathy. Lumbar postlaminectomy syndrome. Post-procedure Diagnosis:: Same. Indications for Procedure:: Patient is a very pleasant 77-year-old female comes our clinic today for intrathecal pain pump interrogation refill. Patient currently being managed with hydromorphone 1 mg/mL at 0.0967 mg/day. Patient reporting of low back pain she describes as constant, dull, aching. Patient also complains of bilateral hip and leg radicular symptoms at times. Patient presents in a wheelchair today. She states she is ambulatory at home however minimally. Patient reports she is having difficulty sleeping due to low back pain. She rates her pain 9/10. Procedure Details:: Details of the procedure explained to the patient. The patient taken to procedure room placed in the sitting position. The area over the pump was cleaned using chlorhexidine as a cleansing solution. The pump was interrogated. The pump was accessed with ease using a 22-gauge inch and a half needle. 8 mL of solution was withdrawn and discarded appropriately. The pump was then filled with 20 cc of a solution containing hydromorphone 1 mg/mL. The pump rate was increased by 20%. Her new intrathecal pump rate will be 0.1161 mg today. Patient tolerated procedure without difficulty. There were no complications. Plan and Disposition:: Patient will return to the office next week for reevaluation regarding her pain level. I recommend additional increase in the pump rate if in fact she continues with severe pain.
== END 2023-07-07 13:30 | disposition home or self-care (01) ==
PROVIDERS: PCP Nurse Practitioner Family; Visit Provider Nurse Anesthetist, Certified Registered
DX: M51.16 Intervertebral disc disorders with radiculopathy, lumbar region (principal); M96.1 Postlaminectomy syndrome, not elsewhere classified; Z97.8 Presence of other specified devices
CPT/HCPCS: 95991

== ENCOUNTER → 2023-07-15 09:58 | Outpatient (POV) | payer MEDICARE, SELFPAY ==
--- OUTSIDE RECORDS SUMMARY | 2023-07-15 10:02 | XMS_ITS | Patient Health Record ---
Author Name Unknown Organization [facility] Address [address] [place] [id number] Care Team Providers Care Bonding Molder Name Role Phone Claire Ramirez Primary Care Provider [phone] Delvin Newton Unavailable Unavailable Delvin Newton Unavailable [phone] Sheryl Velasquez Unavailable [phone] ALLERGIES Allergen (clinical drug ingredient) Drug/Non Drug Allergy documented on EMR Reaction Allergy Type Onset Date Status Aripiprazole Analogu es (uncoded) itching Allergy Active aripiprazole ARIPiprazole itching Drug Allergy A ctive aripiprazole Abilify itching Drug Allergy Acti ve RESULTS Component Value Reference Range Notes INFLUENZA A&B Reviewed date:08/15/2022 08:16:44 AM Interpretation: Performing Lab: Notes/Report: INFLUENZA A negative INFLUENZA B negative M-Complete Blood Count Auto Diff Reviewed date:11/10/2022 08:26:49 AM Interpretation: Performing Lab: Notes/Report: WBC 14.6 4.8-10.8 K/mm3 RBC 4.56 4.20-5.40 M/mm3 HGB 10.1 12.2-16.2 g/dL HCT 34.7 37.0-47.0 % MCV 76.0 81-99 fl MCH 22.2 27.0-31.2 pg
--- NOTE | 2023-07-15 10:26 | EXP.PAIN.PRO ---
Procedure Date: 07/15/23 Time: 10:27 Anesthesiologist:: Cathie Benjamin APRN Complications:: None Pre-procedure Diagnosis:: Degenerative disc disease of lumbar spine with lumbar radiculopathy symptoms, lumbar postlaminectomy syndrome Post-procedure Diagnosis:: Same Indications for Procedure:: Patient is a pleasant 77-year-old female who presents today for intrathecal adjustment and reprogram. We are currently treating the patient for degenerative disc disease of lumbar spine with lumbar radiculopathy symptoms, lumbar postlaminectomy syndrome. Patient rates her pain today a 8 out of 10. Patient denies any new trauma or injury. She does state that she continues to have worsening back pain as well as symptoms radiating into her legs. She does state at our last visit the increase did provide an additional improvement up until the last few days. She is currently managed with Dilaudid 1 mg/mL with a daily dose of 0.1161 mg/day. She denies any side effects from this medication. Clonazepam 0.5 patient is currently managed with alprazolam 1 mg 3 times a day and gabapentin 300 mg 3 times a day from her PCP.Her Eric has been reviewed and is appropriate. Physical Exam: General: Alert and oriented x3, no acute distress, pleasant and cooperative Lungs: Respirations even and unlabored, symmetrical chest expansion Eyes: PERRL Musculoskeletal: Flexion and extension of lumbar [spine] somewhat guarded secondary to pain, [antalgic gait noted] Neurological: Speech clear, no gross sensory deficit Procedure Details:: Informed consent was obtained and the risk and benefits of the procedure were explained to the patient. Patient was taken to the procedure room where noninvasive monitoring was placed including noninvasive blood pressure cuff and pulse oximeter. Patient's pump was interrogated and was reprogrammed to Dilaudid 0.1336 mg/day. The patient tolerated the procedure well with no complications. Plan and Disposition:: Patient tolerated her intrathecal increase with no complications and was discharged neurologically intact. I have discussed with the patient that I will plan on seeing her back in 2 weeks for reevaluation of symptoms and possible intrathecal adjustment and reprogramming. Patient has been instructed to contact the clinic with any concerns before the next appointment. Dr. Hinojosa has reviewed this note and agrees with this plan of care. This note was dictated using voice recognition software and make contain errors or omissions. -- It Is medically necessary for this patient to continue to have their intrathecal pump refilled at regular intervals. This patient had an intrathecal pain pump implanted after meeting criteria of chronic intractable pain for greater than 3 months and failing conservative treatments. Patient has committed and been compliant to the treatment plan and all planned follow up care. Since implantation of the intrathecal pain pump, the patient has had decreased pain and been more functional. Oral medications have been reduced including intake of oral opioids. Patient continues to do well with intrathecal therapy with decrease in pain symptoms and increase in functional status. Stopping intrathecal medications can lead to life threatening withdrawal, seizures, cardiac arrest, severe pain, and possible . Pumps that are not refilled at regular intervals can be damages and cause and need for replacement. We continually titrate dose and concentration to optimize pain relief and function. We are limited in concentration for certain drugs to safely deliver medications through the pump and stay within the recommendations from the Polyanalgesic Consensus Committee Guidelines. Depending on dose and concentration these pumps may need to be refilled sooner than 3 months as we titrate.
[2023-07-15 10:50] VITALS: BP 105/69; PULSE 106; RESP 20; O2SAT 93; BMI 27.1
== END | disposition home or self-care (01) ==
PROVIDERS: PCP Nurse Practitioner Family; Visit Provider Nurse Practitioner Family
DX: M51.16 Intervertebral disc disorders with radiculopathy, lumbar region (principal); M96.1 Postlaminectomy syndrome, not elsewhere classified; Z97.8 Presence of other specified devices
CPT/HCPCS: 62368; 99213; G0463

== ENCOUNTER → 2023-07-29 13:26 | Outpatient (POV) | payer MEDICARE, SELFPAY ==
[2023-07-29 14:35] VITALS: BP 84/53; PULSE 108; RESP 20; BMI 28.7
--- NOTE | 2023-07-29 16:01 | EXP.PAIN.PRO ---
Procedure Date: 07/29/23 Time: 13:35 Anesthesiologist:: Cathie Benjamin APRN Complications:: None Pre-procedure Diagnosis:: Degenerative disc disease of lumbar spine with lumbar radiculopathy symptoms, lumbar postlaminectomy syndrome Post-procedure Diagnosis:: Same Indications for Procedure:: Patient is a pleasant 77-year-old female who presents today for follow-up. We are currently treating the patient for degenerative disc disease of lumbar spine with lumbar radiculopathy symptoms, lumbar postlaminectomy syndrome. Today she rates her pain a 10 out of 10. She denies any new trauma or injury from our last visit however she continues to have worsening pain throughout her body. Patient states this is literally from her head to her feet. Patient also states that she feels like her tremors are getting worse. Patient states she was previously low on iron and is always typically hypotensive. Patient states the tremors have been going on for some time even before her pump medication was started. Patient is currently managed with Dilaudid 1 mg/mL with a daily dose of 0.1336 mg/day. Patient denies any side effects from this medication. Her Eric has been reviewed and is appropriate. Physical Exam: General: Alert and oriented x3, no acute distress, pleasant and cooperative Lungs: Respirations even and unlabored, symmetrical chest expansion Eyes: PERRL Musculoskeletal: Flexion and extension of lumbar [spine] somewhat guarded secondary to pain, [antalgic gait noted] Neurological: Speech clear, no gross sensory deficit Procedure Details:: Informed consent was obtained and the risk and benefits of the procedure were explained to the patient. Patient was taken to the procedure room where noninvasive monitoring was placed including noninvasive blood pressure cuff and pulse oximeter. Patient's pump was interrogated and was reprogrammed to Dilaudid 0.147 mg/day and her PTM device was set up today to provide an additional 4 boluses as needed in a 24-hour.. The patient tolerated the procedure well with no complications. Plan and Disposition:: Due to her increasing tremors it may be beneficial to send her to a specialist to rule out possible diagnoses such as Parkinson. Patient does state that she had recent lab work done at her PCP and we will contact their office to get a copy of this results. I will send the patient for referral to Dr. Li's office for evaluation related to her worsening tremors and difficulty walking. Patient will return to clinic in 2 weeks for reevaluation of symptoms and plan of care. Patient has been instructed to contact the clinic with any concerns before the next appointment. Dr. Hinojosa has reviewed this note and agrees with this plan of care. This note was dictated using voice recognition software and make contain errors or omissions. -- It Is medically necessary for this patient to continue to have their intrathecal pump refilled at regular intervals. This patient had an intrathecal pain pump implanted after meeting criteria of chronic intractable pain for greater than 3 months and failing conservative treatments. Patient has committed and been compliant to the treatment plan and all planned follow up care. Since implantation of the intrathecal pain pump, the patient has had decreased pain and been more functional. Oral medications have been reduced including intake of oral opioids. Patient continues to do well with intrathecal therapy with decrease in pain symptoms and increase in functional status. Stopping intrathecal medications can lead to life threatening withdrawal, seizures, cardiac arrest, severe pain, and possible . Pumps that are not refilled at regular intervals can be damages and cause and need for replacement. We continually titrate dose and concentration to optimize pain relief and function. We are limited in concentration for certain drugs to safely deliver medications through the pump and stay within the recommenda
== END ==
PROVIDERS: Visit Provider Nurse Practitioner Family
DX: R25.1 Tremor, unspecified (principal); M51.16 Intervertebral disc disorders with radiculopathy, lumbar region; M96.1 Postlaminectomy syndrome, not elsewhere classified; Z97.8 Presence of other specified devices
CPT/HCPCS: 62368; 99212; G0463

== ENCOUNTER → 2023-08-12 13:39 | Outpatient (POV) | payer MEDICARE, SELFPAY ==
--- NOTE | 2023-08-12 14:03 | EXP.PAIN.PRO ---
Procedure Date: 08/12/23 Time: 14:03 Anesthesiologist:: Cathie Benjamin APRN Complications:: None Pre-procedure Diagnosis:: Degenerative disc disease of lumbar spine with lumbar radiculopathy symptoms, lumbar postlaminectomy syndrome Post-procedure Diagnosis:: Same Indications for Procedure:: Patient is a pleasant 77-year-old female who presents today for 2-week follow-up and intrathecal adjustment and reprogram. Today she rates her pain a 9 out of 10. Patient denies any new trauma or injury. She states she continues to have daily aches and pains and that the last intrathecal adjustment did not really provide much improvement. Patient denies any side effects. Patient continues to experience tremors and denies any worsening symptoms of this from her increase. Patient is currently managed with intrathecal Dilaudid 1 mg/mL with a daily dose of 0.147 mg/day. Patient denies any side effects of this medication. From our last visit we did send referral for neurology for evaluation of her tremors. Patient states she did get paperwork in the mail and has filled it out and is planning on going to their office after our visit to drop it off. Her Eric has been reviewed and is appropriate. Physical Exam: General: Alert and oriented x3, no acute distress, pleasant and cooperative Lungs: Respirations even and unlabored, symmetrical chest expansion Eyes: PERRL Musculoskeletal: Flexion and extension of lumbar [spine] somewhat guarded secondary to pain, [antalgic gait noted] Neurological: Speech clear, no gross sensory deficit Procedure Details:: Informed consent was obtained and the risk and benefits of the procedure were explained to the patient. Patient was taken to the procedure room where noninvasive monitoring was placed including noninvasive blood pressure cuff and pulse oximeter. Patient's pump was interrogated and was reprogrammed to Dilaudid 0.1619 mg/day. The patient tolerated the procedure well with no complications. Plan and Disposition:: Patient tolerated her intrathecal increase with no complications and was discharged neurologically intact. Patient will return to clinic in 2 weeks for reevaluation of her symptoms and plan of care. Patient has been instructed to contact the clinic with any concerns before the next appointment. Dr. Hinojosa has reviewed this note and agrees with this plan of care. This note was dictated using voice recognition software and make contain errors or omissions. -- It Is medically necessary for this patient to continue to have their intrathecal pump refilled at regular intervals. This patient had an intrathecal pain pump implanted after meeting criteria of chronic intractable pain for greater than 3 months and failing conservative treatments. Patient has committed and been compliant to the treatment plan and all planned follow up care. Since implantation of the intrathecal pain pump, the patient has had decreased pain and been more functional. Oral medications have been reduced including intake of oral opioids. Patient continues to do well with intrathecal therapy with decrease in pain symptoms and increase in functional status. Stopping intrathecal medications can lead to life threatening withdrawal, seizures, cardiac arrest, severe pain, and possible . Pumps that are not refilled at regular intervals can be damages and cause and need for replacement. We continually titrate dose and concentration to optimize pain relief and function. We are limited in concentration for certain drugs to safely deliver medications through the pump and stay within the recommendations from the Polyanalgesic Consensus Committee Guidelines. Depending on dose and concentration these pumps may need to be refilled sooner than 3 months as we titrate.
[2023-08-12 14:12] VITALS: BP 133/74; PULSE 65; RESP 18; O2SAT 97; BMI 28.6
== END | disposition home or self-care (01) ==
PROVIDERS: PCP Nurse Practitioner Family; Visit Provider Nurse Practitioner Family
DX: M51.16 Intervertebral disc disorders with radiculopathy, lumbar region (principal); M96.1 Postlaminectomy syndrome, not elsewhere classified; Z97.8 Presence of other specified devices
CPT/HCPCS: 62368; 99212; G0463

== ENCOUNTER → 2023-09-03 14:02 | Outpatient (POV) | payer MEDICARE, SELFPAY ==
--- NOTE | 2023-09-03 14:25 | EXP.PAIN.PRO ---
Procedure Date: 09/03/23 Time: 14:25 Anesthesiologist:: Cathie Benjamin APRN Complications:: None Pre-procedure Diagnosis:: Degenerative disc disease of lumbar spine with lumbar radiculopathy symptoms, lumbar kidney syndrome Post-procedure Diagnosis:: Same Indications for Procedure:: Patient is a pleasant 77-year-old female who presents today for intrathecal adjustment and reprogram. Today she rates her pain a 7 out of 10. Patient denies any new trauma or injury. She does state from her last visit she did notice improvement of her pain symptoms following her intrathecal increase. Patient is currently managed with Dilaudid 1 mg/mL with a daily dose of 0.1619 mg/day. She denies any side effects from this medication. She was also sent for referral for neurology for evaluation of her tremors. She states she does have an appointment with Dr. Li's office next month. Patient does state that there has been no change to her tremors. Her Eric has been reviewed and is appropriate. Physical Exam: General: Alert and oriented x3, no acute distress, pleasant and cooperative Lungs: Respirations even and unlabored, symmetrical chest expansion Eyes: PERRL Musculoskeletal: Flexion and extension of lumbar [spine] somewhat guarded secondary to pain, [antalgic gait noted] Neurological: Speech clear, no gross sensory deficit Procedure Details:: Informed consent was obtained and the risk and benefits of the procedure were explained to the patient. Patient was taken to the procedure room where noninvasive monitoring was placed including noninvasive blood pressure cuff and pulse oximeter. Patient's pump was interrogated and was reprogrammed to Dilaudid 0.1781mg/day. The patient tolerated the procedure well with no complications. Plan and Disposition:: Patient tolerated her intrathecal increase with no complications and was discharged neurologically intact. Patient is scheduled for her intrathecal refill on October 06. We will see the patient back in the clinic at the next intrathecal refill. Patient has been instructed to contact the clinic with any concerns before the next appointment. Dr. Hinojosa has reviewed this note and agrees with this plan of care. This note was dictated using voice recognition software and make contain errors or omissions. -- It Is medically necessary for this patient to continue to have their intrathecal pump refilled at regular intervals. This patient had an intrathecal pain pump implanted after meeting criteria of chronic intractable pain for greater than 3 months and failing conservative treatments. Patient has committed and been compliant to the treatment plan and all planned follow up care. Since implantation of the intrathecal pain pump, the patient has had decreased pain and been more functional. Oral medications have been reduced including intake of oral opioids. Patient continues to do well with intrathecal therapy with decrease in pain symptoms and increase in functional status. Stopping intrathecal medications can lead to life threatening withdrawal, seizures, cardiac arrest, severe pain, and possible . Pumps that are not refilled at regular intervals can be damages and cause and need for replacement. We continually titrate dose and concentration to optimize pain relief and function. We are limited in concentration for certain drugs to safely deliver medications through the pump and stay within the recommendations from the Polyanalgesic Consensus Committee Guidelines. Depending on dose and concentration these pumps may need to be refilled sooner than 3 months as we titrate.
[2023-09-03 15:17] VITALS: BP 98/68; PULSE 109; RESP 20; O2SAT 92; BMI 27.1
== END | disposition home or self-care (01) ==
PROVIDERS: PCP Nurse Practitioner Family; Visit Provider Nurse Practitioner Family
DX: M51.16 Intervertebral disc disorders with radiculopathy, lumbar region (principal); Z97.8 Presence of other specified devices; Z45.1 Encounter for adjustment and management of infusion pump
CPT/HCPCS: 62368; 99213; G0463

== ENCOUNTER 2023-09-18 08:31 | Outpatient (CLI) | payer MEDICARE, SELFPAY ==
--- NOTE | 2023-09-18 08:38 | MM_ITS ---
PROCEDURE INFORMATION: Exam: MG Bilateral Screening 3D Mammography Exam date and time: 09/18/2023 8:41 AM Age: 77 years old Clinical indication: Screening examination TECHNIQUE: Imaging protocol: Bilateral Screening tomosynthesis and 2D mammography including computer-aided detection (CAD) when performed. COMPARISON: 1. MG [facility] MM Dig screening mamm BI w/CAD 06/11/2018 10:17 AM 2. MG [facility] DIG MAMM-SCREEN WILMER W/CAD 02/02/2017 10:51 AM FINDINGS: MAMMOGRAPHY: Breast composition: There are scattered areas of fibroglandular density. Mass: None. Architectural distortion: None. Calcifications: No suspicious calcifications. Asymmetric density: None. Skin thickening: None. Axillary adenopathy: None. IMPRESSION: No mammographic evidence of malignancy. Annual screening is recommended unless otherwise clinically indicated. ASSESSMENT: BI-RADS Category 1: Negative
--- NOTE | 2023-09-18 08:39 | XR_ITS ---
FINAL REPORT CLINICAL HISTORY: POST MENOPAUSAL Osteoporosis screening COMPARISON: 10/08/2020 FINDINGS: Using L1-4, the bone mineral density of the spine is 0.789 g/cm2, corresponding to T-score of -2.3, consistent with low bone density. Previously was 1.373 g/cm? with T-score of 3.0. Using the left hip, the bone mineral density of the femoral neck is 0.566 g/cm2, corresponding to a T-score of -2.6, consistent with osteoporosis. Previously was 0.649 g/cm? with T-score of -1.8. Using the right hip, the bone mineral density of the femoral neck is 0.481 g/cm2, corresponding to a T-score of -3.3, consistent with osteoporosis. Previously was 0.537 g/cm? with T-score of -2.8. FRAX not reported because some T-score at or below -2.5, treated for osteoporosis. NOTE: T-score: Standard deviation compared with peak bone mass of young adult mean. *Following the recommendations of the International Society of Bone densitometry, classification of hip BMD is based on the lower of two T-scores; total hip or femoral neck. IMPRESSION: Diminished bone mineral density consistent with osteoporosis. Reviewed, Interpreted and Dictated by Ghulam Ramirez III, MD Transcribed by Shalonda Jameson Authenticated and [facility]
== END 2023-09-18 23:59 ==
LOC: RAD 08:32
PROVIDERS: PCP Nurse Practitioner Family; Visit Provider Nurse Practitioner Family
DX: Z12.31 Encounter for screening mammogram for malignant neoplasm of breast (principal); Z78.0 Asymptomatic menopausal state
CPT/HCPCS: 77063; 77067; 77080

== ENCOUNTER 2023-10-06 11:20 | Day surgery (SDC) | payer MEDICARE, SELFPAY ==
[2023-10-06 11:37] VITALS: BP 119/74; PULSE 113; RESP 16; TEMP 36.1; O2SAT 99; BMI 25.4
[2023-10-06 11:41] VITALS: BP 88/58; PULSE 105; RESP 19; O2SAT 97
[2023-10-06 11:43] VITALS: BP 88/58; PULSE 105; RESP 18; O2SAT 96
--- NOTE | 2023-10-06 11:52 | EXP.PAIN.PRO ---
Procedure Date: 10/06/23 Time: 11:20 Anesthesiologist:: Ian Zambrano CRNA Complications:: None Pre-procedure Diagnosis:: Degenerative disc lumbar spine multilevels. Lumbar radiculopathy. Lumbar postlaminectomy syndrome. Post-procedure Diagnosis:: Same. Indications for Procedure:: Patient is a very pleasant 77-year-old female comes our clinic today for intrathecal pump interrogation refill. She is currently being managed with Dilaudid 1 mg/mL at a daily dose of 0.1781 mg/day patient doing better since recent increase in rate on 09/03/2023. She is not requesting any changes today. She does not report any side effects or complications. Procedure Details:: Details of the procedure explained to the patient. The patient taken the procedure room placed in the sitting position. The area over the pump was cleansed using chlorhexidine's cleansing solution. The pump was interrogated. The pump was accessed with ease using a 22-gauge inch and half needle. 5 mL of solution was withdrawn and discarded appropriately. The pump was then filled with 20 cc of solution containing hydromorphone 1 mg/mL. The rate will continue at 0.1781 mg/day. Patient tolerated procedure without difficulty. There are no complications. Plan and Disposition:: Patient was discharged without incident.
[2023-10-06 11:55] VITALS: BP 104/57; PULSE 106; RESP 16; O2SAT 99
[2023-10-06 12:15] VITALS: BP 102/70; PULSE 84; RESP 18; O2SAT 97
== END 2023-10-06 11:55 | disposition home or self-care (01) ==
PROVIDERS: PCP Nurse Practitioner Family; Visit Provider Nurse Anesthetist, Certified Registered
DX: M51.16 Intervertebral disc disorders with radiculopathy, lumbar region (principal); M96.1 Postlaminectomy syndrome, not elsewhere classified; Z97.8 Presence of other specified devices; Z45.1 Encounter for adjustment and management of infusion pump
CPT/HCPCS: 95991; 96372

== ENCOUNTER → 2023-11-23 20:32 | Outpatient (CLI) | payer MEDICARE, SELFPAY | PROVIDERS: PCP Nurse Practitioner Family; Visit Provider Specialist | DX: G47.36 Sleep related hypoventilation in conditions classified elsewhere; R06.83 Snoring; I10 Essential (primary) hypertension; J44.9 Chronic obstructive pulmonary disease, unspecified; Z99.81 Dependence on supplemental oxygen; G47.30 Sleep apnea, unspecified | CPT/HCPCS: 95811 ==

== ENCOUNTER 2023-12-01 11:21 | Day surgery (SDC) | payer MEDICARE, SELFPAY ==
[2023-12-01 11:30] VITALS: BP 112/65; PULSE 88; RESP 18; TEMP 36.5; O2SAT 90; BMI 26.9
--- NOTE | 2023-12-01 11:50 | EXP.PAIN.PRO ---
Procedure Date: 12/01/23 Time: 11:30 Anesthesiologist:: Ian Zambrano CRNA Complications:: None Pre-procedure Diagnosis:: Degenerative disc lumbar spine multilevels. Lumbar radiculopathy. Lumbar postlaminectomy syndrome. Post-procedure Diagnosis:: Same. Indications for Procedure:: Patient is a very pleasant 78-year-old female comes our clinic today for intrathecal pain pump interrogation refill. Patient's current rate of hydromorphone 1 mg/mL is 0.1781 mg/day. Patient reporting she hurts all over. Specifically, her low back is 10/10 on the pain scale. Her bilateral hip and leg radicular symptoms are 10/10. I discussed in detail with the patient regarding the need to increase the pump on a weekly basis in order to find the threshold to keep her comfortable. Patient agrees. However, according to the staff in the pain clinic she has not been compliant in terms of keeping her appointments for intrathecal pain pump interrogation and reprogram. Patient's last reprogram for increase of the intrathecal pain pump rate was August 2023. She was increased to percent at that time. However, according to the patient it did not help with her pain. Today I will increase her by 30%. Procedure Details:: Details of the procedure explained the patient. The patient taken to procedure room placed in sitting position. The area of the pump is cleansed using chlorhexidine cleansing solution. The pump was interrogated. The pump was accessed with ease using a 22-gauge inch and half needle. 8 mL of solution was withdrawn discarded appropriate. The pump was then filled 20 cc of solution containing Dilaudid 1 mg/mL. The rate was increased by 30% today due to her overall pain scale of 10/10. Her new rate will be 0.2317 mg/day. Plan and Disposition:: Patient was discharged without incident. We urged the patient return to see us in 2 weeks.
[2023-12-01 11:55] VITALS: BP 93/50; PULSE 80; RESP 18; O2SAT 90
== END 2023-12-01 11:55 | disposition home or self-care (01) ==
PROVIDERS: PCP Nurse Practitioner Family; Visit Provider Nurse Anesthetist, Certified Registered
DX: M51.16 Intervertebral disc disorders with radiculopathy, lumbar region (principal); M96.1 Postlaminectomy syndrome, not elsewhere classified; Z97.8 Presence of other specified devices; Z45.1 Encounter for adjustment and management of infusion pump
CPT/HCPCS: 62370

== ENCOUNTER 2023-12-14 14:40 | Outpatient (POV) | payer MEDICARE, SELFPAY ==
--- NOTE | 2023-12-14 14:58 | EXP.PAIN.PRO ---
Procedure Date: 12/14/23 Time: 14:58 Anesthesiologist:: Cathie Benjamin APRN Complications:: None Pre-procedure Diagnosis:: Degenerative disc disease of lumbar spine with lumbar radiculopathy symptoms, lumbar postlaminectomy syndrome, chronic pain syndrome Post-procedure Diagnosis:: Same Indications for Procedure:: Patient is a pleasant [id number] female who presents today for intrathecal adjustment and reprogram. Today she rates her pain a 10 out of 10. Patient denies any new trauma or injury. She states the last increase that she got did provide significant improvement in her overall back pain but as well as her neck and shoulder pain. She states that it did last a few days before she felt like she was going back towards her baseline. Patient is currently managed with Dilaudid 1 mg/mL with a daily dose of 0.2317 mg/day. She denies any side effects from this medication. Patient does state that it seems like the simplest activities or even getting dressed just takes it out of her to where she is worn out whenever she goes out. Patient states that she has not even been to [employer] maybe 2 times over the last year due to the worsening pain symptoms. She is prescribed gabapentin and alprazolam from an outside provider. Her Eric has been reviewed and is appropriate. Physical Exam: General: Alert and oriented x3, no acute distress, pleasant and cooperative Lungs: Respirations even and unlabored, symmetrical chest expansion Eyes: PERRL Musculoskeletal: Flexion and extension of lumbar [spine] somewhat guarded secondary to pain, [antalgic gait noted] Neurological: Speech clear, no gross sensory deficit Procedure Details:: Informed consent was obtained and the risk and benefits of the procedure were explained to the patient. Patient was taken to the procedure room where noninvasive monitoring was placed including noninvasive blood pressure cuff and pulse oximeter. Patient's pump was interrogated and was reprogrammed to Dilaudid 0.3015 mg/day. The patient tolerated the procedure well with no complications. Plan and Disposition:: Patient tolerated her intrathecal increase with no complications and was discharged neurologically intact. I have counseled the patient due to her increased difficulty coming to our appointments that she may be a beneficial candidate of the at home refill program. Risk and benefits were discussed with the patient and she would like to proceed forward with this plan of care. We will get everything submitted over the [facility] and see her back in our office in 6 months for reevaluation of symptoms and plan of care. Patient has been instructed to contact the clinic with any concerns before the next appointment. Dr. Hinojosa has reviewed this note and agrees with this plan of care. This note was dictated using voice recognition software and make contain errors or omissions. -- It Is medically necessary for this patient to continue to have their intrathecal pump refilled at regular intervals. This patient had an intrathecal pain pump implanted after meeting criteria of chronic intractable pain for greater than 3 months and failing conservative treatments. Patient has committed and been compliant to the treatment plan and all planned follow up care. Since implantation of the intrathecal pain pump, the patient has had decreased pain and been more functional. Oral medications have been reduced including intake of oral opioids. Patient continues to do well with intrathecal therapy with decrease in pain symptoms and increase in functional status. Stopping intrathecal medications can lead to life threatening withdrawal, seizures, cardiac arrest, severe pain, and possible . Pumps that are not refilled at regular intervals can be damages and cause and need for replacement. We continually titrate dose and concentration to optimize pain relief and function. We are limited in concentration for certain drugs to safely deliver medications through the pump and stay within the recommendations from the Polyanalgesic Consensus Committee Guidelines. Depending on dose and concentration these pumps may need to be refilled sooner than 3 months as we titrate.
[2023-12-14 15:06] VITALS: BP 141/78; PULSE 100; RESP 20; O2SAT 92; BMI 26.8
== END 2023-12-14 23:59 | disposition home or self-care (01) ==
PROVIDERS: PCP Nurse Practitioner Family; Visit Provider Nurse Practitioner Family
DX: M51.16 Intervertebral disc disorders with radiculopathy, lumbar region (principal); M96.1 Postlaminectomy syndrome, not elsewhere classified; G89.4 Chronic pain syndrome; Z97.8 Presence of other specified devices; Z45.1 Encounter for adjustment and management of infusion pump
CPT/HCPCS: 62368; 99213; G0463

== ENCOUNTER 2023-12-20 18:56 | Emergency (ER) | payer MEDICARE, SELFPAY ==
--- NOTE | 2023-12-20 19:02 | XR_ITS ---
PROCEDURE INFORMATION: Exam: XR Left Forearm Exam date and time: 12/20/2023 7:03 PM Age: 78 years old Clinical indication: Injury or trauma; Fall; Blunt trauma (contusions or hematomas); Arm, lower; Left TECHNIQUE: Imaging protocol: Radiologic exam of the left forearm. Views: 2 views. COMPARISON: CR XR WRIST LT MIN 3V 12/20/2023 7:01 PM FINDINGS: Bones/joints: Nondisplaced fracture of the distal dorsal radial metaphyseal epiphyseal region. No other acute fracture or dislocation seen. Soft tissues: Normal. IMPRESSION: Distal dorsal radial fracture.
--- NOTE | 2023-12-20 19:02 | XR_ITS ---
PROCEDURE INFORMATION: Exam: XR Left Elbow Exam date and time: 12/20/2023 7:04 PM Age: 78 years old Clinical indication: Injury or trauma; Fall; Blunt trauma (contusions or hematomas); Elbow; Left TECHNIQUE: Imaging protocol: Radiologic exam of the left elbow. Views: 3 or more views. COMPARISON: CR XR ELBOW LT MIN 3V 06/08/2020 1:56 PM FINDINGS: Bones/joints: Normal. No acute fracture identified. Soft tissues: Normal. IMPRESSION: No acute findings.
--- NOTE | 2023-12-20 19:02 | XR_ITS ---
PROCEDURE INFORMATION: Exam: XR Left Hand Exam date and time: 12/20/2023 6:59 PM Age: 78 years old Clinical indication: Injury or trauma; Fall; Blunt trauma (contusions or hematomas); Hand; Left TECHNIQUE: Imaging protocol: Radiologic exam of the left hand. Views: 3 or more views. COMPARISON: CR XR ELBOW LT MIN 3V 06/08/2020 1:56 PM FINDINGS: Bones/joints: Evidence for a nondisplaced fracture of the distal dorsal radius. This is best seen on the left forearm series done at the same time. No other acute fracture or dislocation evident. Soft tissues: Normal. IMPRESSION: Distal dorsal radial fracture.
--- NOTE | 2023-12-20 19:02 | XR_ITS ---
PROCEDURE INFORMATION: Exam: XR Left Wrist Exam date and time: 12/20/2023 7:01 PM Age: 78 years old Clinical indication: Injury or trauma; Fall; Blunt trauma (contusions or hematomas); Wrist; Left TECHNIQUE: Imaging protocol: Radiologic exam of the left wrist. Views: 3 or more views. COMPARISON: CR XR HAND LT MIN 3V 12/20/2023 6:59 PM FINDINGS: Bones/joints: Cortical irregularity of the posterior distal radial epiphysis region on the lateral view. No other fracture or dislocation seen. Soft tissues: Normal. IMPRESSION: Cortical irregularity of the posterior distal radius may be residual of old trauma but acute nondisplaced fracture not totally excluded if symptoms in this region.
[2023-12-20 19:05] VITALS: BP 99/46; PULSE 71; RESP 20; TEMP 36.6; O2SAT 97; BMI 26.2
--- NOTE | 2023-12-20 19:23 | ED_ITS ---
Discharge Plan Disposition Patient Disposition: Home, Self-Care Condition: Good Prescriptions Prescriptions: No Action metoprolol succinate 50 mg tablet extended release 24 hr 50 mg PO DAILY citalopram 10 mg tablet 10 mg PO DAILY potassium chloride 10 mEq tablet extended release 10 meq PO BID gabapentin 300 mg capsule 900 mg PO HS alprazolam 1 mg tablet 1 mg PO TIDP PRN (Reason: Anxiety) omeprazole 40 mg capsule,delayed release(DR/EC) 40 mg PO BID levocetirizine 5 mg tablet 5 mg PO HS levalbuterol HCl 0.63 mg/3 mL solution for nebulization 0.63 mg inhalation . PRN (Reason: .) Linzess 72 mcg capsule 72 mcg PO DAILY PRN (Reason: IBS) aspirin 81 MG tablet,delayed release (DR/EC) 81 mg PO DAILY ergocalciferol (vitamin D2) 50,000 UNIT capsule 50,000 units PO WEEKLY Patient Comments: TAKE ONE CAPSULE BY MOUTH ONCE A WEEK levalbuterol tartrate 15 GM HFA aerosol inhaler 2 puff IH Q4H milnacipran 100 MG tablet 100 mg PO BID rosuvastatin 20 MG tablet 20 mg PO HS Patient Comments: TAKE 1 TABLET BY MOUTH EVERY DAY AT BEDTIME metformin 500 MG tablet extended release 24 hr 500 mg PO DAILY levothyroxine 125 MCG tablet 125 mcg PO DAILY montelukast 10 MG tablet 10 mg PO HS sitagliptin phosphate 100 MG tablet 100 mg PO DAILY furosemide 40 mg tablet 40 mg PO DAILYP PRN (Reason: Fluid) hydromorphone (PF) 1 mg/mL Solution 1 mg continuous epidural CONT PRN (Reason: Pain) Rx Instructions: SEE MEDICAL RECORDED FOR CURRENT INFUSION Referrals Follow up/Referrals: Des Benjamin DO [Staff Physician] - See instructions Claire Ramirez APRN [Primary Care Provider] - See instructions Activity Restrictions/Add. Instructions Additional Instructions/Restrictions: Rest the extremity, apply ice for 15 minutes as tolerated three or four times per day, Elevate the extremity as tolerated while you are resting. Follow up with Dr. Benjamin (orthopedics). I put in a referral but you need to call his office and schedule an appointment. His office phone number will be on this paperwork. Please call his office in the morning. Follow up with your regular doctor. GO TO THE ER FOR ANY WORSENING SYMPTOMS Clinical Impressions Clinical Impression: Fracture of left distal radius Instructions Patient Instructions: How to Take Care of Your Splint, DI for Distal Radius Fracture Discharge ED Provider: Андрей Barnett [facility] [place] HPI General Stated complaint: AO04/07@1730 LT arm inj Time Seen by Provider: 12/20/23 19:23 History of Present Illness Provider Complaint: She states that she fell and came down on her left hand and forearm about 1 hour ago at her home. She is having left wrist and left forearm pain and swelling. She denies any other injury or complaint. Related Data Home Medications Medication Instructions Recorded Confirmed gabapentin 300 mg capsule 900 mg PO HS neuropathy 10/06/17 12/14/23 alprazolam 1 mg tablet 1 mg PO TIDP PRN Anxiety 08/24/18 12/14/23 omeprazole 40 mg capsule,delayed 40 mg PO BID Reflux/Acid reflux 08/24/18 12/20/23 release levalbuterol tartrate 45 2 puff inhalation Q4H Breathing 02/07/19 12/14/23 mcg/actuation aerosol inhaler problems milnacipran 100 mg tablet 100 mg PO BID FIBROMYALGIA 02/07/19 12/20/23 rosuvastatin 20 mg tablet 20 mg PO HS Cholesterol 02/08/19 12/20/23 levocetirizine 5 mg tablet 5 mg PO HS Allergy symptoms 10/11/20 12/20/23 levothyroxine 125 mcg tablet 125 mcg PO DAILY THYROID 12/18/20 12/20/23 metformin 500 mg tablet,extended 500 mg PO DAILY Diabetes 12/18/20 12/20/23 release 24 hr montelukast 10 mg tablet 10 mg PO HS Allergy symptoms 12/18/20 12/20/23 sitagliptin phosphate 100 mg tablet 100 mg PO DAILY Diabetes 12/18/20 12/20/23 aspirin 81 mg tablet,delayed 81 mg PO DAILY [facility] 04/11/21 12/14/23 release ergocalciferol (vitamin D2) 1,250 50,000 units PO WEEKLY Supplement 02/20/22 12/14/23 mcg (50,000 unit) capsule metoprolol succinate 50 mg 50 mg PO DAILY High blood pressure 03/31/22 12/20/23 tablet,extended release 24 hr furosemide 40 mg tablet 40 mg PO DAILYP PRN Fluid 10/30/22 12/14/23 citalopram 10 mg tablet 10 mg PO DAILY mood 01/22/23 12/14/23 potassium chloride 10 mEq 10 meq PO BID Supplement 01/22/23 12/20/23 tablet,extended release hydromorphone (PF) 1 mg/mL 1 mg continuous epidural CONT PRN 01/29/23 12/14/23 injection solution Pain levalbuterol HCl 0.63 mg/3 mL 0.63 mg inhalation . PRN . 09/23/23 12/14/23 solution for nebulization linaclotide 72 mcg capsule 72 mcg PO DAILY PRN IBS 09/23/23 12/20/23 (Linzess) Allergies Allergy/AdvReac Type Severity Reaction Status Date / Time aripiprazole [From ABILIFY] Allergy Unknown Unknown Verified 12/20/23 19:29 allergy reaction ciprofloxacin [CIPROFLOXACIN] Allergy Unknown Unknown Verified 12/20/23 19:29 allergy reaction phenazopyridine Allergy Unknown Unknown Verified 12/20/23 19:29 [PHENAZOPYRIDINE] allergy reaction PFSH PFS Disclaimer: The information contained in this section may have been updated after the patient was seen, as this information can be updated by other users. Medical History (Updated 12/20/23 @ 19:59 by Андрей Barnett APRN) Oxygen dependent Nephrolithiasis History of left heart catheterization Smoker Hypothyroid Tobacco abuse COPD (chronic obstructive pulmonary disease) Nonspecific ST-T changes Tachycardia Diabetes HLD (hyperlipidemia) SOB (shortness of breath) Angina, class IV Surgical History History of surgical removal of skin lesion History of spinal surgery History of tonsillectomy History of colon surgery History of section History of bladder surgery Family History Other No significant family history Social History Smoking Status: Current every day smoker tobacco type: cigarettes packs per day: 1 second hand exposure: Yes alcohol intake: never counseling provided: provider counseling substance use type: denies use current occupational status: retired Travel in the last 8 weeks: None household members: children housing: house current occupational exposures/hazards: No caffeine: No ROS Obtained: Yes All systems reviewed & no additional complaints except as documented Constitutional Constitutional: Denies chills and Denies fever(s) Eyes Eyes: Denies eye discharge ENT Ears, Nose, Mouth, and Throat: Denies dizziness, Denies otalgia, Denies neck pain and Denies sore throat Cardiovascular Cardiovascular: Denies chest pain Respiratory Respiratory: Denies shortness of breath, Denies chest congestion, Denies cough, Denies stridor and Denies wheezing Gastrointestinal Gastrointestingal: Denies nausea or vomiting Musculoskeletal Musculoskeletal: Reports as per HPI, Denies back pain and Denies neck pain Integumentary/Breasts Skin/Breast: Denies rash Neurologic Neurologic: Denies dizziness and Denies paresthesias Allergic/Immunologic Allergic/Immunologic: Denies wheezing Physical Exam General General appearance: alert and in no apparent distress Head Head exam: atraumatic, normocephalic and normal inspection Eye Eye exam: Present normal appearance, PERRL and EOMI ENT ENT exam: Present normal exam, normal oropharynx, mucous membranes moist, TM's normal bilaterally and normal external ear exam Neck Neck exam: Present normal inspection, full ROM and trachea midline; Absent meningismus or lymphadenopathy Chest Chest inspection: Present normal inspection and symmetric chest wall rise; Absent tenderness Respiratory Respiratory exam: Present normal lung sounds bilaterally; Absent respiratory distress Cardiovascular Cardiovascular exam: Present regular rate and normal rhythm; Absent JVD Abdominal Exam Abdominal exam: Present soft and normal bowel sounds; Absent distention, tenderness or guarding Extremities Exam Extremities exam: Present normal capillary refill; Absent calf tenderness Expanded Upper Extremity Exam Left: Shoulder exam: Present normal inspection and full ROM; Absent tenderness or tenderness over AC joint Arm exam: Present normal inspection and full ROM; Absent tenderness Elbow exam: Present normal inspection, full ROM and pain w/ pronation/supination; Absent tenderness or tenderness over radial head Forearm/Wrist exam: Present tenderness and swelling; Absent full ROM, abrasion, laceration, ecchymosis, deformity, crepitus, dislocation, erythema, tenderness over anatomical snuff box or pain with axial thumb loading Hand exam: Present tenderness; Absent full ROM, swelling, abrasion, laceration, skin avulsion, ecchymosis, deformity, crepitus, dislocation, erythema, amputation, nail avulsion or subungual hematoma Neuromotor exam: Normal wrist extension, thumb opposition, thumb IP flexion, thumb adduction and fingers 2-5 abduction Neurosensory exam: Normal radial nerve, ulnar nerve and median nerve Vascular exam: Normal capillary refill, radial pulse and ulnar pulse Back Exam Back exam: Present normal inspection; Absent tenderness Neurological Exam Neurological exam: Present alert and oriented X3 Psychiatric Psychiatric exam: Present normal affect and normal mood Skin Skin exam: Present warm, dry, intact and normal color Lymphatic Lymphatic Findings: no adenopathy Medical Decision Making Medical Records Medical records reviewed: No I reviewed the patient's medical records. Eric Inquiry Pt receiving controlled substance: No Orders (Tests/Meds): ORDERS Category Date Time Status Elbow XR left mininum 3 views [XR elbow LT min 3V] Stat Exams 12/20/23 19:02 Taken XR forearm LT 2V Stat Exams 12/20/23 19:02 Taken XR hand LT min 3V Stat Exams 12/20/23 19:02 Taken XR wrist LT min 3V Stat Exams 12/20/23 19:02 Taken Radiology Data #1: Image(s): Wrist Image Reviewed: Yes I reviewed the patient's radiology image and Yes I have reviewed radiologist's interpretation Preliminary Findings: Abnormal distal radius fracture Procedures Risk/Benefits of Procedure(s) Were Explained: Yes Orthopedic Splinting/Casting Injury #1: Side: left Upper Extremity Injury Location: elbow, forearm, wrist and hand Upper Extremity Immobilizer: sugar tong splint and applied by nurse/dr diehl Post Cast/Splinting Neuro Status: intact and no change Post Cast/Splinting Vasc Status: intact and no change
[2023-12-20 20:31] VITALS: BP 99/46; PULSE 71; RESP 20; TEMP 36.6; O2SAT 97
--- NOTE | 2023-12-20 20:32 | PC.NURSE ---
Did a sugar tone orthoglass splint
== END 2023-12-20 20:31 | disposition home or self-care (01) ==
PROVIDERS: Emergency Provider Nurse Practitioner Family; PCP Nurse Practitioner Family
DX: S52.502A Unspecified fracture of the lower end of left radius, initial encounter for closed fracture (principal); M25.532 Pain in left wrist; F17.210 Nicotine dependence, cigarettes, uncomplicated; J44.9 Chronic obstructive pulmonary disease, unspecified; E03.9 Hypothyroidism, unspecified; E11.9 Type 2 diabetes mellitus without complications; E78.5 Hyperlipidemia, unspecified; I20.9 Angina pectoris, unspecified; Z79.84 Long term (current) use of oral hypoglycemic drugs; W19.XXXA Unspecified fall, initial encounter; I10 Essential (primary) hypertension
CPT/HCPCS: 73080; 73090; 73110; 73130; 99204; 99212; G0463

== ENCOUNTER 2023-12-28 10:43 | Outpatient (POV) | payer MEDICARE, SELFPAY ==
[2023-12-28 10:53] VITALS: BP 96/44; PULSE 89; RESP 18; TEMP 36.7; O2SAT 99; BMI 66.5
--- NOTE | 2023-12-28 11:19 | EXP.PAIN.PRO ---
Procedure Date: 12/28/23 Time: 11:20 Anesthesiologist:: Cathie Benjamin APRN Complications:: None Pre-procedure Diagnosis:: Degenerative disc disease of lumbar spine with lumbar radiculopathy symptoms, lumbar postlaminectomy syndrome, chronic pain, left wrist pain Post-procedure Diagnosis:: Same Indications for Procedure:: Patient is a pleasant 78-year-old female who presents today for intrathecal adjustment and reprogram. Today she rates her pain an 8 out of 10. Patient states that she did recently have a fall that seem to worsen her pain. Patient states that she does have a hairline fracture to her left wrist. She states that she saw Dr. Benjamin for this injury and was braced however he did not give any additional meds due to her pump. Patient is requesting intrathecal increase. Patient denies any side effects from this medication. Her current settings are Dilaudid 1 mg/mL with a daily dose of 0.3015 mg/day. Patient was also tried to order the compounded cream however it was not covered by her current insurance. Patient does also state that she did recently go to her primary care provider and they did do some lab work due to symptoms of continued sleeping throughout the day. Patient states that they did change some of her medications and that one of the medicines she was supposed to be taking at night she was taking during the day. Patient states that the fatigue was going on long before the pump. Does state it seems to be unrelated. Her Eric has been reviewed and is appropriate. Physical Exam: General: Alert and oriented x3, no acute distress, pleasant and cooperative Lungs: Respirations even and unlabored, symmetrical chest expansion Eyes: PERRL Musculoskeletal: Flexion and extension of lumbar [spine] somewhat guarded secondary to pain, [antalgic gait noted] Neurological: Speech clear, no gross sensory deficit Procedure Details:: Informed consent was obtained and the risk and benefits of the procedure were explained to the patient. Patient was taken to the procedure room where noninvasive monitoring was placed including noninvasive blood pressure cuff and pulse oximeter. Patient's pump was interrogated and was reprogrammed to Dilaudid 0.3472 mg/day. The patient tolerated the procedure well with no complications. Plan and Disposition:: Patient tolerated her intrathecal increase with no complications and was discharged neurologically intact. I have discussed with the patient since the compounded cream was not covered by her insurance that I will send in a prescription of diclofenac topical gel to apply to her wrist to help with pain. I have counseled the patient to check with pharmacy before purchasing this to see whether or not if the over the counter is cheaper than the prescription. Patient acknowledges understanding. Patient will return to clinic in 2 weeks for possible additional adjustment and reprogram. Patient has been instructed to contact the clinic with any concerns before the next appointment. Dr. Hinojosa has reviewed this note and agrees with this plan of care. This note was dictated using voice recognition software and make contain errors or omissions. -- It Is medically necessary for this patient to continue to have their intrathecal pump refilled at regular intervals. This patient had an intrathecal pain pump implanted after meeting criteria of chronic intractable pain for greater than 3 months and failing conservative treatments. Patient has committed and been compliant to the treatment plan and all planned follow up care. Since implantation of the intrathecal pain pump, the patient has had decreased pain and been more functional. Oral medications have been reduced including intake of oral opioids. Patient continues to do well with intrathecal therapy with decrease in pain symptoms and increase in functional status. Stopping intrathecal medications can lead to life threatening withdrawal, seizures, cardiac arrest, severe pain, and possible . Pumps that are not refilled at regular intervals can be damages and cause and need for replacement. We continually titrate dose and concentration to optimize pain relief and function. We are limited in concentration for certain drugs to safely deliver medications through the pump and stay within the recommendations from the Polyanalgesic Consensus Committee Guidelines. Depending on dose and concentration these pumps may need to be refilled sooner than 3 months as we titrate.
== END 2023-12-28 23:59 | disposition home or self-care (01) ==
PROVIDERS: PCP Nurse Practitioner Family; Visit Provider Nurse Practitioner Family
DX: M51.16 Intervertebral disc disorders with radiculopathy, lumbar region (principal); M96.1 Postlaminectomy syndrome, not elsewhere classified; G89.29 Other chronic pain; M25.532 Pain in left wrist; Z97.8 Presence of other specified devices; Z45.1 Encounter for adjustment and management of infusion pump
CPT/HCPCS: 62368; 99212; G0463

== ENCOUNTER 2024-01-11 12:57 | Outpatient (POV) | payer MEDICARE, SELFPAY ==
--- NOTE | 2024-01-11 13:18 | EXP.PAIN.SOA ---
[facility] Pain Management SOAP Note Subjective:: Patient is a pleasant 78-year-old female who presents today for 2-week follow-up. Today she rates her pain a 10 out of 10. Patient states she has pain in multiple area however states she is experiencing a lot of pain in her low back, hips and buttocks area. Patient describes this as an aching, throbbing sensation patient does state that certain positions do seem to aggravate it such as prolonged sitting or standing. Patient states she frequently has to change positions from [id number] to give some temporary relief. Patient states she is also experiencing additional allergy symptoms. Patient also states she also continues to experience neck pain. Patient does state her pain interferes with her ability perform activities of daily living such as cooking and cleaning. Patient at our last visit was given a sample of [place] cream for her left wrist however she states she did not notice much relief with this. She states that also her PCP gave her prescription medication however that made no difference either. Patient was prescribed compounded cream in the past however it was not covered by her insurance. Patient does state that she has had recent labs done by her PCP and they did have her discontinue her vitamin D and add B12. Patient is currently managed with Dilaudid 1 mg/mL with a daily dose of 0.3472 mg/day. She denies any side effects from this medication. She does state that at her last visit where we did increase her current medication she really did not notice much improvement. Patient states that she continues to have chronic weakness and shortness of breath. Patient does continue to use her oxygen at night or as needed through the day. Patient does not have any oxygen on during today's visit. Her Eric has been reviewed and is appropriate. Review of Systems: General: No recent weight changes, no fever, no sleep disturbances Respiratory: No cough, no shortness of air, no recurring pulmonary infections Cardiovascular/peripheral vascular: No chest pain, no palpitations, no edema, no shortness of breath Gastrointestinal: No new onset incontinence, normal bowel movements reported Genitourinary: No new onset incontinence Musculoskeletal: Low back pain, bilateral hip pain, buttocks pain Psychiatric: [Normal mood/affect] Neurological: [Denies weakness in extremities], [denies balance issues] Objective:: Physical Exam: General: Alert and oriented x3, no acute distress, pleasant and cooperative Lungs: Respirations even and unlabored, symmetrical chest expansion Eyes: PERRL Musculoskeletal: Flexion and extension of lumbar [spine] somewhat guarded secondary to pain, [antalgic gait noted] point tenderness along bilateral SIs with positive bilateral Brian's, Sylvia's, Gaenslen's, compression and distraction exam Neurological: Speech clear, no gross sensory deficit Assessment:: Degenerative disc disease of cervical and lumbar spine with cervical and lumbar radiculopathy symptoms, bilateral sacroiliitis, chronic pain syndrome Plan:: Patient is experiencing worsening pain in her low back and bilateral hips with radiating symptoms into her buttocks area. Patient did have point tenderness along her bilateral SIs and a positive bilateral Brian's, Sylvia's, Gaenslen's, compression and distraction exam. I have discussed with patient that she may benefit from bilateral SI injections. Risk and benefits were discussed with patient and she would like to proceed forward with this plan of care. Patient has tried and failed conservative therapy and cannot tolerate physical therapy due to her COPD severity. We will schedule the patient for bilateral SI injections under fluoroscopy. We will see the patient back in the clinic at the next intrathecal refill. Patient has been instructed to contact the clinic with any concerns before the next appointment. Dr. Hinojosa has reviewed this note and agrees with this plan of care. This note was dictated using voice recognition software and make contain errors or omissions. -- It Is medically necessary for this patient to continue to have their intrathecal pump refilled at regular intervals. This patient had an intrathecal pain pump implanted after meeting criteria of chronic intractable pain for greater than 3 months and failing conservative treatments. Patient has committed and been compliant to the treatment plan and all planned follow up care. Since implantation of the intrathecal pain pump, the patient has had decreased pain and been more functional. Oral medications have been reduced including intake of oral opioids. Patient continues to do well with intrathecal therapy with decrease in pain symptoms and increase in functional status. Stopping intrathecal medications can lead to life threatening withdrawal, seizures, cardiac arrest, severe pain, and possible . Pumps that are not refilled at regular intervals can be damages and cause and need for replacement. We continually titrate dose and concentration to optimize pain relief and function. We are limited in concentration for certain drugs to safely deliver medications through the pump and stay within the recommendations from the Polyanalgesic Consensus Committee Guidelines. Depending on dose and concentration these pumps may need to be refilled sooner than 3 months as we titrate. [facility] Disclaimer: The information contained in this section may have been updated after the patient was seen, as this information can be updated by other users. Medical History Oxygen dependent Nephrolithiasis History of left heart catheterization Smoker Hypothyroid Tobacco abuse COPD (chronic obstructive pulmonary disease) Nonspecific ST-T changes Tachycardia Diabetes HLD (hyperlipidemia) SOB (shortness of breath) Angina, class IV Surgical History History of surgical removal of skin lesion History of spinal surgery History of tonsillectomy History of colon surgery History of section History of bladder surgery Family History Other No significant family history Social History Smoking Status: Current every day smoker tobacco type: cigarettes packs per day: 1 second hand exposure: Yes alcohol intake: never counseling provided: provider counseling substance use type: denies use current occupational status: other Travel in the last 8 weeks: None household members: children housing: house current occupational exposures/hazards: No caffeine: No
[2024-01-11 13:37] VITALS: BP 89/47; PULSE 75; RESP 18; O2SAT 86; BMI 30.4
== END 2024-01-11 23:59 | disposition home or self-care (01) ==
LOC: SC.PAIN 12:59
PROVIDERS: PCP Nurse Practitioner Family; Visit Provider Nurse Practitioner Family
DX: M50.10 Cervical disc disorder with radiculopathy, unspecified cervical region (principal); M51.16 Intervertebral disc disorders with radiculopathy, lumbar region; M46.1 Sacroiliitis, not elsewhere classified; G89.4 Chronic pain syndrome; Z97.8 Presence of other specified devices
CPT/HCPCS: 62368; 99212; 99213; G0463

== ENCOUNTER 2024-01-19 09:31 | Outpatient (CLI) | payer MEDICARE, SELFPAY ==
--- NOTE | 2024-01-19 09:38 | XR_ITS ---
FINAL REPORT CLINICAL HISTORY: lt wrist pain; f/u fracture FINDINGS: Left wrist Three views were obtained. There is a subacute impacted fracture of the distal radius. Mild degenerative changes are present. IMPRESSION: Fracture as above. Reviewed, Interpreted and Dictated by Ghulam Ramirez III, MD Transcribed by Lynn Knight Authenticated and [facility]
== END 2024-01-19 23:59 | disposition home or self-care (01) ==
LOC: RAD 09:33
PROVIDERS: PCP Nurse Practitioner Family; Visit Provider Orthopaedic Surgery
DX: M25.532 Pain in left wrist; S52.502A Unspecified fracture of the lower end of left radius, initial encounter for closed fracture
CPT/HCPCS: 73110

== ENCOUNTER 2024-01-25 13:00 | Outpatient (POV) | payer MEDICARE, SELFPAY ==
[2024-01-25 13:22] VITALS: BP 100/57; PULSE 99; RESP 20; O2SAT 91; BMI 30.4
--- NOTE | 2024-01-25 14:17 | A.OFFVIS_ITS ---
[facility] Pain Management SOAP Note Subjective:: Patient is a pleasant 78-year-old female who presents today for follow-up. Today she rates her pain a 8 out of 10. Patient denies any new trauma or injury. Patient does state that she is still having severe pain and feels like the pump is just not working well. She states she has had increases but they just do not seem to do a whole lot. She does also state that she has been having leg swelling on the left ankle. She states she is not really sure what this is related to. Patient does state that her at home refill nurse did mention about that if she fell and landed on her pump that the catheter may come unattached and cause her to overdose. Patient does have a lot of concern rega rding this now and is questioning whether or not she should have the pump removed. Patient is currently managed with Dilaudid 1 mg/mL with a daily dose of 0.3816 mg/day. Her Eric has been reviewed and is appropriate. Review of Systems: General: No recent weight changes, no fever, no sleep disturbances Respiratory: No cough, no shortness of air, no recurring pulmonary infections Cardiovascular/peripheral vascular: No chest pain, no palpitations, no edema, no shortness of breath Gastrointestinal: No new onset incontinence, normal bowel movements reported Genitourinary: No new onset incontinence Musculoskeletal: Low back pain Psychiatric: [Normal mood/affect] Neurological: [Denies weakness in extremities], [denies balance issues] Objective:: Physical Exam: General: Alert and oriented x3, no acute distress, pleasant and cooperative Lungs: Respirations even and unlabored, symmetrical chest expansion Eyes: PERRL Musculoskeletal: Flexion and extension of lumbar [spine] somewhat guarded secondary to pain, [antalgic gait noted] Neurological: Speech clear, no gross sensory deficit Assessment:: Degenerative disc disease of cervical and lumbar spine with cervical and lumbar radiculopathy symptoms, bilateral sacroiliitis, chronic pain syndrome Plan:: I have discussed at length with the patient regarding possible explants as well as possible changing her intrathecal pump medication to a stronger medicine. Risk and benefits were discussed with the patient and at this time she would like to proceed forward with the medication changed to try this first. We will switch her to fentanyl 250 mcg/mL with 25 mcg/day and bupivacaine 5 mg/mL with 2.5 mg/day. We will plan on doing the medication change in office before she continues back to her at home refill programming. Patient agrees with this plan of care. I have also discussed with the patient that I do recommend that we prescribe Narcan as a precaution to help also give her some relief for the possibility of overdose in case she were to need it. Patient does state that her daughter is an EMT and that she will see if she can get it from her and go over how to use the medication. Patient will be scheduled for intrathecal refill with medication change under fluoroscopy. We will see the patient back in the clinic at the next intrathecal refill. Patient has been instructed to contact the clinic with any concerns before the next appointment. Dr. Hinojosa has reviewed this note and agrees with this plan of care. This note was dictated using voice recognition software and make contain errors or omissions. -- It Is medically necessary for this patient to continue to have their intrathecal pump refilled at regular intervals. This patient had an intrathecal pain pump implanted after meeting criteria of chronic intractable pain for greater than 3 months and failing conservative treatments. Patient has committed and been compliant to the treatment plan and all planned follow up care. Since implantation of the intrathecal pain pump, the patient has had decreased pain and been more functional. Oral medications have been reduced including intake of oral opioids. Patient continues to do well with intrathecal therapy with decrease in pain symptoms and increase in functional status. Stopping intrathecal medications can lead to life threatening withdrawal, seizures, cardiac arrest, severe pain, and possible . Pumps that are not refilled at regular intervals can be damages and cause and need for replacement. We continually titrate dose and concentration to optimize pain relief and function. We are limited in concentration for certain drugs to safely deliver medications through the pump and stay within the recommendations from the Polyanalgesic Consensus Committee Guidelines. Depending on dose and concentration these pumps may need to be refilled sooner than 3 months as we titrate. [facility] Disclaimer: The information contained in this section may have been updated after the patient was seen, as this information can be updated by other users. Medical History Oxygen dependent Nephrolithiasis History of left heart catheterization Smoker Hypothyroid Tobacco abuse COPD (chronic obstructive pulmonary disease) Nonspecific ST-T changes Tachycardia Diabetes HLD (hyperlipidemia) SOB (shortness of breath) Angina, class IV Surgical History History of surgical removal of skin lesion History of spinal surgery History of tonsillectomy History of colon surgery History of section History of bladder surgery Family History Other No significant family history Social History Smoking Status: Current every day smoker tobacco type: cigarettes packs per day: 1 second hand exposure: Yes alcohol intake: never counseling provided: provider counseling substance use type: denies use current occupational status: retired Travel in the last 8 weeks: None household members: children housing: house current occupational exposures/hazards: No caffeine: No
== END 2024-01-25 23:59 | disposition home or self-care (01) ==
LOC: SC.PAIN 13:02
PROVIDERS: PCP Nurse Practitioner Family; Visit Provider Nurse Practitioner Family
DX: M50.10 Cervical disc disorder with radiculopathy, unspecified cervical region (principal); M51.16 Intervertebral disc disorders with radiculopathy, lumbar region; M46.1 Sacroiliitis, not elsewhere classified; G89.4 Chronic pain syndrome; Z97.8 Presence of other specified devices
CPT/HCPCS: 99212; G0463

== ENCOUNTER 2024-02-02 14:24 | Day surgery (SDC) | payer MEDICARE, SELFPAY ==
[2024-02-02 14:46] VITALS: BP 103/49; PULSE 84; RESP 18; TEMP 36.2; O2SAT 93; BMI 28.8
[2024-02-02 14:49] VITALS: BP 93/41; PULSE 84; RESP 20; O2SAT 93
--- NOTE | 2024-02-02 14:53 | EXP.PAIN.PRO ---
Procedure Date: 02/02/24 Time: 14:45 Anesthesiologist:: Ian Zambrano CRNA Complications:: None Pre-procedure Diagnosis:: Degenerative disc lumbar spine multilevels. Lumbar radiculopathy. Lumbar postlaminectomy syndrome. Post-procedure Diagnosis:: Same. Indications for Procedure:: Is this patient is a pleasant 78-year-old female comes our clinic today for intrathecal pain pump interrogation and refill with minute medication exchange. Patient is currently being managed with hydromorphone 1 mg/mL at a rate of 0.3816 mg/day. We will exchange her medication for fentanyl 250 mcg/mL plus bupivacaine 5 mg/mL. Fentanyl rate will begin at 25 mcg/day. Bupivacaine rate will be at 0.5 mg/day. Procedure Details:: Details of the procedure explained to the patient. The patient taken procedure room placed in the sitting position. They over the pumps cleansed using chlorhexidine's cleansing solution. The pump was interrogated. The pump was accessed with ease using a 22-gauge inch and half needle. 13 mL of solution was withdrawn discarded appropriate. The pump was then filled with 20 cc of a solution containing fentanyl 250 mcg/mL and bupivacaine 5 mg/mL. The intrathecal pump rate will be 25 mcg/day of fentanyl and 0.5 mg/day of bupivacaine.. Patient tolerated procedure without difficulty. There are no complications. Plan and Disposition:: Patient was discharged without incident.
[2024-02-02 15:00] VITALS: BP 92/48; PULSE 96; RESP 18; O2SAT 93
== END 2024-02-02 15:03 | disposition home or self-care (01) ==
PROVIDERS: PCP Nurse Practitioner Family; Visit Provider Nurse Anesthetist, Certified Registered
DX: M51.16 Intervertebral disc disorders with radiculopathy, lumbar region (principal); M96.1 Postlaminectomy syndrome, not elsewhere classified; Z97.8 Presence of other specified devices; Z45.1 Encounter for adjustment and management of infusion pump
CPT/HCPCS: 62370

== ENCOUNTER 2024-02-04 14:01 | Outpatient (POV) | payer MEDICARE, SELFPAY ==
[2024-02-04 14:18] VITALS: BP 127/82; PULSE 89; RESP 18; O2SAT 91; BMI 30.3
--- NOTE | 2024-02-04 14:43 | P.PCN_ITS ---
Procedure Date: 02/04/24 Time: 14:13 Anesthesiologist:: Cathie Benjamin APRN Complications:: None Pre-procedure Diagnosis:: Degenerative disc disease of lumbar spine with lumbar radiculopathy symptoms, lumbar postlaminectomy syndrome Post-procedure Diagnosis:: Same Indications for Procedure:: Patient is a pleasant 78-year-old female who presents today for intrathecal adjustment and reprogram. Today she rates her pain at 0 out of 10. Patient states that she has had significant improvement in her overall pain symptoms following the change from her intrathecal medication of Dilaudid to the fentanyl. Patient however states that she has been having more freezing and shivering with tingling in her feet. Patient states that this did all started around the time of the pump refill. Patient does state that the previous swelling that she was having in her feet and ankles has improved. Patient is currently managed with fentanyl 250 mcg/mL with a daily dose of 24.99 mcg/day and bupivacaine 5 mg/mL with a daily dose of 0.4998 mg/day.her Eric has been reviewed and is appropriate. Physical Exam: General: Alert and oriented x3, no acute distress, pleasant and cooperative Lungs: Respirations even and unlabored, symmetrical chest expansion Eyes: PERRL Musculoskeletal: Flexion and extension of lumbar [spine] somewhat guarded secondary to pain, [antalgic gait noted] Neurological: Speech clear, no gross sensory deficit Procedure Details:: Informed consent was obtained and the risk and benefits of the procedure were explained to the patient. Patient was taken to the procedure room where noninvasive monitoring was placed including noninvasive blood pressure cuff and pulse oximeter. Patient's pump was interrogated and was reprogrammed to fentanyl 14.99 mcg/day and bupivacaine 0.2998 mg/day. The patient tolerated the procedure well with no complications. Plan and Disposition:: Patient tolerated her intrathecal decreased with no complications and was discharged neurologically intact. She did stay at our clinic for an additional 10 to 15 minutes after her reprogramming. I have counseled the patient that I would like to see her back in 2 weeks for reevaluation of symptoms and plan of care however if she has any worsening symptoms or change of symptoms to please call us back as soon as possible so we can get her in sooner. Patient acknowledges understanding and agrees with plan of care. Patient has been instructed to contact the clinic with any concerns before the next appointment. Dr. Hinojosa has reviewed this note and agrees with this plan of care. This note was dictated using voice recognition software and make contain errors or omissions. -- It Is medically necessary for this patient to continue to have their intrathecal pump refilled at regular intervals. This patient had an intrathecal pain pump implanted after meeting criteria of chronic intractable pain for greater than 3 months and failing conservative treatments. Patient has committed and been compliant to the treatment plan and all planned follow up care. Since implantation of the intrathecal pain pump, the patient has had decreased pain and been more functional. Oral medications have been reduced including intake of oral opioids. Patient continues to do well with intrathecal therapy with decrease in pain symptoms and increase in functional status. Stopping intrathecal medications can lead to life threatening withdrawal, seizures, cardiac arrest, severe pain, and possible . Pumps that are not refilled at regular intervals can be damages and cause and need for replacement. We c ontinually titrate dose and concentration to optimize pain relief and function. We are limited in concentration for certain drugs to safely deliver medications through the pump and stay within the recommendations from the Polyanalgesic Consensus Committee Guidelines. Depending on dose and concentration these pumps may need to be refilled sooner than 3 months as we titrate.
== END 2024-02-04 23:59 | disposition home or self-care (01) ==
PROVIDERS: PCP Nurse Practitioner Family; Visit Provider Nurse Practitioner Family
DX: M51.16 Intervertebral disc disorders with radiculopathy, lumbar region (principal); M96.1 Postlaminectomy syndrome, not elsewhere classified; Z97.8 Presence of other specified devices; Z45.1 Encounter for adjustment and management of infusion pump
CPT/HCPCS: 62368; 99213; G0463

== ENCOUNTER 2024-02-05 11:30 | Outpatient (POV) | payer MEDICARE, SELFPAY ==
--- NOTE | 2024-02-05 11:35 | P.PCN_ITS ---
Procedure Date: 02/05/24 Time: 11:35 Anesthesiologist:: Cathie Benjamin APRN Complications:: None Pre-procedure Diagnosis:: Degenerative disc disease of lumbar spine with lumbar radiculopathy symptoms, lumbar postlaminectomy syndrome Post-procedure Diagnosis:: Same Indications for Procedure:: Patient is a pleasant 78-year-old female who presents today for intrathecal adjustment and reprogram. Today she rates her pain at 0 out of 10. At our visit yesterday we did decrease her pump to fentanyl 15 mcg/day. Patient states that she still has gotten very good pain coverage and is doing well with that overall in her back but she still continues to have the feeling of being cold and now even has no appetite. Patient denies any diarrhea, fever or other symptoms. Patient is currently managed with alprazolam 3 times a day from an outside provider. Her Eric has been reviewed and is appropriate. Physical Exam: General: Alert and oriented x3, no acute distress, pleasant and cooperative Lungs: Respirations even and unlabored, symmetrical chest expansion Eyes: PERRL Musculoskeletal: Flexion and extension of lumbar [spine] somewhat guarded secondary to pain, [antalgic gait noted] Neurological: Speech clear, no gross sensory deficit Procedure Details:: Informed consent was obtained and the risk and benefits of the procedure were explained to the patient. Patient was taken to the procedure room where noninvasive monitoring was placed including noninvasive blood pressure cuff and pulse oximeter. Patient's pump was interrogated and was reprogrammed to fentanyl patch 24.99 mcg/day. The patient tolerated the procedure well with no complications. Plan and Disposition:: I did discuss at length with the patient that Dr. Hinojosa does think that she may be having symptoms of withdrawal from changing to the fentanyl from the Dilaudid. I discussed with the patient that he was recommending we increase her back to what she had been before or even to 35 mcg/day as well as send in a prescription of Valium 5 mg twice daily. Patient is currently on alprazolam and has been for some time and feels like this is not really helping. Patient is agreeable to holding the alprazolam and trying the diazepam as well as increasing the pump back to what she was yesterday. She does state that she was on diazepam in the past and was actually wanting to see if her primary care would switch her back. Patient has been counseled to contact our office with any issues whatsoever or to reach back out to the manager heavy duty at the [facility] office or worst- case scenario reach out to the ER to have them reach Dr. Hinojosa. Patient is agreeable to this plan of care. Patient did drive herself today to the office and did stumble going down the hallway so we are having staff drive her back home as a precaution. Her next of kin was contacted to make sure that they would go over and keep an eye on her for any adverse reactions or additional issues. Patient tolerated her intrathecal increase with no complications and was discharged neurologically intact. Patient will continue to keep her scheduled appointments in 2 weeks. We will see the patient back in the clinic at the next intrathecal refill. Patient has been instructed to contact the clinic with any concerns before the next appointment. Dr. Hinojosa has reviewed this note and agrees with this plan of care. This note was dictated using voice recognition software and make contain errors or omissions. -- It Is medically necessary for this patient to continue to have their intrathecal pump refilled at regular intervals. This patient had an intrathecal pain pump implanted after meeting criteria of chronic intractable pain for greater than 3 months and failing conservative treatments. Patient has committed and been compliant to the treatment plan and all planned follow up care. Since implantation of the intrathecal pain pump, the patient has had decreased pain and been more functional. Oral medications have been reduced including intake of oral opioids. Patient continues to do well with intrathecal therapy with decrease in pain symptoms and increase in functional status. Stopping intrathecal medications can lead to life threatening withdrawal, seizures, cardiac arrest, severe pain, and possible . Pumps that are not refilled at regular intervals can be damages and cause and need for replacement. We continually titrate dose and concentration to optimize pain relief and function. We are limited in concentration for certain drugs to safely deliver medications through the pump and stay within the recommendations from the Polyanalgesic Consensus Committee Guidelines. Depending on dose and concentration these pumps may need to be refilled sooner than 3 months as we titrate.
--- NOTE | 2024-02-05 12:29 | PC.NURSE ---
Pt reported she did not have anyone able to drive her here today or to take her home. Pt have an unsteady gait. Staff got a wheelchair for pt. Pt was taken home by staff r/t precaution. Pt daughter Yusuf Lyons was contacted to notify her that pt did have an unsteady gait and staff was taking pt home as a precaution. She verbalized understanding. Pt was receiving a new Rx today from our office, have contacted Clinic pharmacy to have that medication delivered to pts home. Pt was agreeable with that plan.
[2024-02-05 12:37] VITALS: BP 127/83; PULSE 95; RESP 18; O2SAT 92
== END 2024-02-05 23:59 | disposition home or self-care (01) ==
PROVIDERS: Visit Provider Nurse Practitioner Family
DX: M51.16 Intervertebral disc disorders with radiculopathy, lumbar region (principal); M96.1 Postlaminectomy syndrome, not elsewhere classified; Z97.8 Presence of other specified devices; Z45.1 Encounter for adjustment and management of infusion pump
CPT/HCPCS: 62368; 99213; G0463

== ENCOUNTER 2024-02-09 08:37 | Outpatient (POV) | payer MEDICARE, SELFPAY ==
[2024-02-09 08:52] VITALS: BP 132/85; PULSE 78; RESP 18; TEMP 36.3; O2SAT 92; BMI 27.1
--- NOTE | 2024-02-09 09:17 | A.OFFVIS_ITS ---
[facility] Pain Management SOAP Note Subjective:: Patient is a very pleasant 78-year-old female comes our clinic today for intrathecal pain pump interrogation and reprogram. Patient medication was exchanged 7 days ago to fentanyl from Dilaudid. Patient having difficulty for the last 7 days with withdrawal type symptoms. Fever, chills, anxiety, insomnia, nausea, vomiting. Her pump will be decreased to minimal flow. She is interested in pump explant March [address] Hinojosa. Objective:: Patient is awake alert Orange x 3. In no acute distress. Flexion-extension cervical lumbar spine guarded secondary to pain. Deep tendon reflexes upper and lower extremities normal. Motor strength upper lower extremities normal. There is no gross sensory deficit. Gait is normal. Assessment:: Degenerative disc lumbar spine. Lumbar radiculopathy. Lumbar postlaminectomy syndrome Plan:: Patient will return to see us on March [address] Hinojosa to assess and explant. [facility] Disclaimer: The information contained in this section may have been updated after the patient was seen, as this information can be updated by other users. Medical History Oxygen dependent Nephrolithiasis History of left heart catheterization Smoker Hypothyroid Tobacco abuse COPD (chronic obstructive pulmonary disease) Nonspecific ST-T changes Tachycardia Diabetes HLD (hyperlipidemia) SOB (shortness of breath) Angina, class IV Surgical History History of surgical removal of skin lesion History of spinal surgery History of tonsillectomy History of colon surgery History of section History of bladder surgery Family History Other No significant family history Social History Smoking Status: Current every day smoker tobacco type: cigarettes packs per day: 1 second hand exposure: Yes alcohol intake: never counseling provided: provider counseling substance use type: denies use current occupational status: retired Travel in the last 8 weeks: None household members: children housing: house current occupational exposures/hazards: No caffeine: No
== END 2024-02-09 23:59 | disposition home or self-care (01) ==
LOC: SC.PAIN 08:39
PROVIDERS: PCP Nurse Practitioner Family; Visit Provider Nurse Anesthetist, Certified Registered
DX: M51.16 Intervertebral disc disorders with radiculopathy, lumbar region (principal); M96.1 Postlaminectomy syndrome, not elsewhere classified; Z45.1 Encounter for adjustment and management of infusion pump; Z97.8 Presence of other specified devices
CPT/HCPCS: 62368; 99213; G0463

== ENCOUNTER 2024-02-09 14:03 | Emergency (ER) | payer MEDICARE, SELFPAY ==
[2024-02-09 14:21] VITALS: BP 121/75; PULSE 100; RESP 18; O2SAT 92; BMI 25.4
[2024-02-09 14:25] VITALS: BP 121/75; PULSE 100; RESP 18; O2SAT 92
--- NOTE | 2024-02-09 14:53 | PC.NURSE ---
pt placed in room 8 at this time
--- NOTE | 2024-02-09 14:55 | HMH.EDGENADL ---
Discharge Plan Disposition Patient Disposition: Home, Self-Care Condition: Good Prescriptions Prescriptions: No Action metoprolol succinate 50 mg tablet extended release 24 hr 50 mg PO DAILY potassium chloride 10 mEq tablet extended release 10 meq PO BID duloxetine 30 mg capsule,delayed release(DR/EC) 30 mg PO BID Patient Comments: TAKE ONE CAPSULE BY MOUTH TWICE DAILY gabapentin 300 mg capsule 900 mg PO HS alprazolam 1 mg tablet 1 mg PO TIDP PRN (Reason: Anxiety) omeprazole 40 mg capsule,delayed release(DR/EC) 40 mg PO BID levocetirizine 5 mg tablet 5 mg PO HS levalbuterol HCl 0.63 mg/3 mL solution for nebulization 0.63 mg inhalation . PRN (Reason: .) Linzess 72 mcg capsule 72 mcg PO DAILY PRN (Reason: IBS) aspirin 81 MG tablet,delayed release (DR/EC) 81 mg PO DAILY ergocalciferol (vitamin D2) 50,000 UNIT capsule 50,000 units PO WEEKLY Patient Comments: TAKE ONE CAPSULE BY MOUTH ONCE A WEEK diazepam 5 mg tablet 5 mg PO BID PRN (Reason: anxiety) Qty: 14 0RF levalbuterol tartrate 15 GM HFA aerosol inhaler 2 puff IH Q4H milnacipran 100 MG tablet 100 mg PO BID rosuvastatin 20 MG tablet 20 mg PO HS Patient Comments: TAKE 1 TABLET BY MOUTH EVERY DAY AT BEDTIME metformin 500 MG tablet extended release 24 hr 500 mg PO DAILY levothyroxine 125 MCG tablet 125 mcg PO DAILY montelukast 10 MG tablet 10 mg PO HS sitagliptin phosphate 100 MG tablet 100 mg PO DAILY furosemide 40 mg tablet 40 mg PO DAILYP PRN (Reason: Fluid) diclofenac sodium 1 % gel 2 g topical QID Qty: 100 0RF Rx Instructions: apply to single elbow, wrist or hand; for hand includes palm/fingers/back of hand fentanyl (PF)-bupivacaine-NaCl 5-0.04 mcg/mL-% Prefilled Pump [place] 20 ml continuous epidural CONT Rx Instructions: FENTANYL 250MCG/ML, BUPIVACAINE 5MG/ML. SEE EMR FOR CURRENT DAILY DOSE. Referrals Follow up/Referrals: Delvin Newton MD [Primary Care Provider] - See instructions Activity Restrictions/Add. Instructions Additional Instructions/Restrictions: Please take your prescribed medication from pain management as directed. Please follow-up closely with pain management for any worsening or change in your symptoms. Clinical Impressions Clinical Impression: Opiate withdrawal Discharge ED Provider: Flavio Aragon General Adult HPI <HARIS Yuan - Last Filed: 02/09/24 16:19> General Chief complaint: Recheck/Abnormal Lab/Rx Stated complaint: withdrawls from pain pump Time Seen by Provider: 02/09/24 14:55 Mode of Arrival: Wheelchair Source of Information: Patient Limitations: No Limitations Description of Symptoms (Recalled from ER Triage Doc. by RN): Patient reports to the ED with c/o withdrawing from her pain pump medication. Patient reports she is seeing Dr. Hinojosa for pain management and currently has a fentanyl pain pump that they are planning to remove and have been decreasing her medication dose causing her to have chills, not sleep and pain down her legs. History of Present Illness HPI narrative: Patient presents for symptoms of withdrawal. Patient has a long complicated history of chronic pain currently managed by Dr. Hinojosa of pain management. Patient had a Patient changed from Dilaudid to fentanyl and a much lower dose. Patient began having constitutional symptoms after the change and has had multiple contact with both the pain management clinic and Dr. Hinojosa personally. Patient has been prescribed oral opiates and Valium however patient has been resistant to take either medication and has instead been utilizing medication prescribed by other providers, mainly Xanax, to poor affect. Patient was seen today in the pain management clinic and again medication was adjusted to the minimal amount in her pain pump at her request because she wanted explantation of her pain pump. However patient had even more constitutional symptoms and then was sent to the emergency department for investigation for potential other causes of those symptoms. Patient currently denies chest pain shortness of breath fever hemoptysis hematochezia melena hematuria dysuria vomiting or diarrhea but does endorse some nausea and chilling. Related Data Home Medications Medication Instructions Recorded Confirmed gabapentin 300 mg capsule 900 mg PO HS neuropathy 10/06/17 02/05/24 alprazolam 1 mg tablet 1 mg PO TIDP PRN Anxiety 08/24/18 02/05/24 omeprazole 40 mg capsule,delayed 40 mg PO BID Reflux/Acid reflux 08/24/18 02/05/24 release levalbuterol tartrate 45 2 puff inhalation Q4H Breathing 02/07/19 02/05/24 mcg/actuation aerosol inhaler problems milnacipran 100 mg tablet 100 mg PO BID FIBROMYALGIA 02/07/19 02/05/24 rosuvastatin 20 mg tablet 20 mg PO HS Cholesterol 02/08/19 02/05/24 levocetirizine 5 mg tablet 5 mg PO HS Allergy symptoms 10/11/20 02/05/24 levothyroxine 125 mcg tablet 125 mcg PO DAILY THYROID 12/18/20 02/05/24 metformin 500 mg tablet,extended 500 mg PO DAILY Diabetes 12/18/20 02/05/24 release 24 hr montelukast 10 mg tablet 10 mg PO HS Allergy symptoms 12/18/20 02/05/24 sitagliptin phosphate 100 mg tablet 100 mg PO DAILY Diabetes 12/18/20 02/05/24 aspirin 81 mg tablet,delayed 81 mg PO DAILY [facility] 04/11/21 02/05/24 release ergocalciferol (vitamin D2) 1,250 50,000 units PO WEEKLY Supplement 02/20/22 02/05/24 mcg (50,000 unit) capsule metoprolol succinate 50 mg 50 mg PO DAILY High blood pressure 03/31/22 02/05/24 tablet,extended release 24 hr furosemide 40 mg tablet 40 mg PO DAILYP PRN Fluid 10/30/22 02/05/24 potassium chloride 10 mEq 10 meq PO BID Supplement 01/22/23 02/05/24 tablet,extended release levalbuterol HCl 0.63 mg/3 mL 0.63 mg inhalation . PRN . 09/23/23 02/05/24 solution for nebulization linaclotide 72 mcg capsule 72 mcg PO DAILY PRN IBS 09/23/23 02/05/24 (Linzess) duloxetine 30 mg capsule,delayed 30 mg PO BID 12/24/23 02/05/24 release crevkcbk-ujwbqiapine-QyXy(PF) 5 20 ml continuous epidural CONT Pain 02/04/24 02/05/24 mcg/mL-0.04 % injection pump reservoir Previous Rx's Medication Instructions Recorded diclofenac sodium 1 % topical gel 2 g topical QID #100 grams 12/28/23 diazepam 5 mg tablet 5 mg PO BID PRN anxiety #14 tabs 02/05/24 Allergies Allergy/AdvReac Type Severity Reaction Status Date / Time aripiprazole [From ABILIFY] Allergy Unknown Unknown Verified 01/19/24 10:38 allergy reaction ciprofloxacin [CIPROFLOXACIN] Allergy Unknown Unknown Verified 01/19/24 10:38 allergy reaction phenazopyridine Allergy Unknown Unknown Verified 01/19/24 10:38 [PHENAZOPYRIDINE] allergy reaction PFSH <HARIS Yuan - Last Filed: 02/09/24 16:19> [facility] Disclaimer: The information contained in this section may have been updated after the patient was seen, as this information can be updated by other users. Medical History Oxygen dependent Nephrolithiasis History of left heart catheterization Smoker Hypothyroid Tobacco abuse COPD (chronic obstructive pulmonary disease) Nonspecific ST-T changes Tachycardia Diabetes HLD (hyperlipidemia) SOB (shortness of breath) Angina, class IV Surgical History History of surgical removal of skin lesion History of spinal surgery History of tonsillectomy History of colon surgery History of section History of bladder surgery Family History Other No significant family history Social History Smoking Status: Current every day smoker tobacco type: cigarettes packs per day: 1 second hand exposure: Yes alcohol intake: never counseling provided: provider counseling substance use type: denies use current occupational status: retired Travel in the last 8 weeks: None household members: children housing: house current occupational exposures/hazards: No caffeine: No <HARIS Yuan - Last Filed: 02/09/24 16:19> ROS Obtained: Yes Systems reviewed as appropriate & no additional complaints except as documented Physical Exam <HARIS Yuan - Last Filed: 02/09/24 16:19> General General appearance: alert and in no apparent distress Respiratory Respiratory exam: Present normal lung sounds bilaterally; Absent respiratory distress or wheezes Cardiovascular Cardiovascular exam: Present regular rate, normal rhythm and normal heart sounds Abdominal Exam Abdominal exam: Present soft and normal bowel sounds; Absent tenderness, guarding, rebound or rigidity Extremities Exam Extremities exam: Present normal inspection and full ROM Back Exam Back exam: Present normal inspection Neurological Exam Neurological exam: Present alert, oriented X3 and CN II-XII intact Psychiatric Psychiatric exam: Present normal affect and normal mood Skin Skin exam: Present warm, dry and normal color Medical Decision Making <HARIS Yuan - Last Filed: 02/09/24 16:19> Medical Records Medical records reviewed: Yes I reviewed the patient's medical records. Eric Inquiry Pt receiving controlled substance: No Vital Signs: 02/09/24 14:21 02/09/24 14:25 02/09/24 15:31 Temperature Temperature Source Pulse Rate 75 Pulse Rate [Right Brachial] 100 H 100 H Respiratory Rate 18 18 Blood Pressure 134/77 Blood Pressure [Right Arm] 121/75 121/75 Blood Pressure Mean [Right Arm] 90 90 Blood Pressure Source [Right Arm] Automatic Cuff Blood Pressure Position [Right Arm] Sitting 02 Sat by Pulse Oximetry 92 L 92 L 93 L Oxygen Delivery Method Room Air Room Air 02/09/24 16:17 Temperature 98.0 F Temperature Source Oral Pulse Rate 80 Pulse Rate [Right Brachial] Respiratory Rate 17 Blood Pressure 134/77 Blood Pressure [Right Arm] Blood Pressure Mean [Right Arm] Blood Pressure Source [Right Arm] Blood Pressure Position [Right Arm] 02 Sat by Pulse Oximetry Oxygen Delivery Method Room Air Lab Data Lab results reviewed: Yes I reviewed the patient's lab results. Lab Results 02/09/24 15:25: Urine Color Yellow, Urine Appearance Clear, Urine pH 6.0, Ur Specific [place] <= 1.005, Urine Protein Negative, Urine Glucose (UA) Negative, Urine Ketones Negative, Urine Blood Negative, Urine Nitrate Negative, Urine Bilirubin Negative, Urine Urobilinogen 0.2, Ur Leukocyte Esterase Trace, Urine RBC None, Urine WBC 3-5, Ur Squamous Epith Cells 3-5, Urine Bacteria Trace Orders (Tests/Meds): ED MEDICATIONS Discontinued Medications Generic Name Dose Route Start Last Admin Trade Name Freq PRN Reason Stop Dose Admin Lactated Ringer's 1,000 mls @ 999 mls/hr 02/09/24 15:07 02/09/24 16:08 Lactated Ringer's 1000 Ml Bag IV 02/09/24 16:07 Not Given .Q1H1M ONE ORDERS Category Date Time Status Chest XR -- portable [XR chest portable] Stat Exams 02/09/24 15:03 Completed UA [Urinalysis and Microscopic] Stat Lab 02/09/24 15:25 Completed Medical Decision Narrative: In summary patient is a 78-year-old female who presents to the emergency department for evaluation of opiate withdrawal symptoms. Patient is hemodynamically stable upon arrival, afebrile. Physical exam unremarkable and nonfocal but patient has constitutional symptoms of chilling and nausea. Differential diagnosis includes opiate withdrawal versus occult infection. Initial workup will be conducted with urinalysis plain film chest x-ray. Initial interventions were considered however the patient directed decision making deferred until results of urinalysis and chest x-ray are back and also until we have communication with Dr. Hinojosa. Initial workup reviewed by me shows that her urinalysis is bland and her plain film chest x-ray shows no acute processes. Upon repeat evaluation patient seems to have a lack of understanding of the ramifications of abrupt discontinuation of opiates. Dr. Hinojosa anticipated that and prescribed her adequate medication to help control her withdrawal symptoms as she transitioned off of a pain pump. Patient has also been resistant to follow his prescription and has instead been utilizing medications prescribed to her from previous providers, mainly Xanax, further complicating the matter. I had interactive discussion with Dr. Hinojosa regarding patient management and confirmed suspicions that patient is certainly experiencing opiate withdrawal in light of the fact that there is no other causative agent that we have been able to uncover the emergency department.. Given this I had interactive discussion with the patient with patient's daughter present as well as the pain management psychiatric clinical nurse specialist present. Via patient directed decision making patient expressed that she will now attempt to be compliant with a prescription and also expresses a better understanding of the ramifications of sudden discontinuation. Given that patient is appropriate for discharge with close follow-up with pain management. <Flavio Aragon MD - Last Filed: 02/09/24 19:53> Vital Signs: 02/09/24 14:21 02/09/24 14:25 02/09/24 15:31 Temperature Temperature Source Pulse Rate 75 Pulse Rate [Right Brachial] 100 H 100 H Respiratory Rate 18 18 Blood Pressure 134/77 Blood Pressure [Right Arm] 121/75 121/75 Blood Pressure Mean [Right Arm] 90 90 Blood Pressure Source [Right Arm] Automatic Cuff Blood Pressure Position [Right Arm] Sitting 02 Sat by Pulse Oximetry 92 L 92 L 93 L Oxygen Delivery Method Room Air Room Air 02/09/24 16:17 Temperature 98.0 F Temperature Source Oral Pulse Rate 80 Pulse Rate [Right Brachial] Respiratory Rate 17 Blood Pressure 134/77 Blood Pressure [Right Arm] Blood Pressure Mean [Right Arm] Blood Pressure Source [Right Arm] Blood Pressure Position [Right Arm] 02 Sat by Pulse Oximetry Oxygen Delivery Method Room Air Lab Data Lab Results 02/09/24 15:25: Urine Color Yellow, Urine Appearance Clear, Urine pH 6.0, Ur Specific [place] <= 1.005, Urine Protein Negative, Urine Glucose (UA) Negative, Urine Ketones Negative, Urine Blood Negative, Urine Nitrate Negative, Urine Bilirubin Negative, Urine Urobilinogen 0.2, Ur Leukocyte Esterase Trace, Urine RBC None, Urine WBC 3-5, Ur Squamous Epith Cells 3-5, Urine Bacteria Trace Orders (Tests/Meds): ED MEDICATIONS Discontinued Medications Generic Name Dose Route Start Last Admin Trade Name Freq PRN Reason Stop Dose Admin Lactated Ringer's 1,000 mls @ 999 mls/hr 02/09/24 15:07 02/09/24 16:08 Lactated Ringer's 1000 Ml Bag IV 02/09/24 16:07 Not Given .Q1H1M ONE ORDERS Category Date Time Status Chest XR -- portable [XR chest portable] Stat Exams 02/09/24 15:03 Completed UA [Urinalysis and Microscopic] Stat Lab 02/09/24 15:25 Completed Medical Decision Narrative: In summary patient is a 78-year-old female who presents to the emergency department for evaluation of opiate withdrawal symptoms. Patient is hemodynamically stable upon arrival, afebrile. Physical exam unremarkable and nonfocal but patient has constitutional symptoms of chilling and nausea. Differential diagnosis includes opiate withdrawal versus occult infection. Initial workup will be conducted with urinalysis plain film chest x-ray. Initial interventions were considered however the patient directed decision making deferred until results of urinalysis and chest x-ray are back and also until we have communication with Dr. Hinojosa. Initial workup reviewed by me shows that her urinalysis is bland and her plain film chest x-ray shows no acute processes. Upon repeat evaluation patient seems to have a lack of understanding of the ramifications of abrupt discontinuation of opiates. Dr. Hinojosa anticipated that and prescribed her adequate medication to help control her withdrawal symptoms as she transitioned off of a pain pump. Patient has also been resistant to follow his prescription and has instead been utilizing medications prescribed to her from previous providers, mainly Xanax, further complicating the matter. I had interactive discussion with Dr. Hinojosa regarding patient management and confirmed suspicions that patient is certainly experiencing opiate withdrawal in light of the fact that there is no other causative agent that we have been able to uncover the emergency department.. Given this I had interactive discussion with the patient with patient's daughter present as well as the pain management psychiatric clinical nurse specialist present. Via patient directed decision making patient expressed that she will now attempt to be compliant with a prescription and also expresses a better understanding of the ramifications of sudden discontinuation. Given that patient is appropriate for discharge with close follow-up with pain management. I was consulted by the SHIRA, and we discussed the complexity of the problems being addressed. I approved the treatment and management plan for this patient?s care in the Emergency Department, thus performing a substantive portion of the medical decision making. Flavio Aragon MD Critical Care <HARIS Yuan - Last Filed: 02/09/24 16:19> Critical Care Time Critical Care Time: No
--- NOTE | 2024-02-09 15:01 | PC.NURSE ---
[place] at bedside with pt
--- NOTE | 2024-02-09 15:03 | XR_ITS ---
FINAL REPORT TECHNIQUE: Single view. CLINICAL HISTORY: [place] COMPARISON: January 23, 2023. FINDINGS: The heart size is normal. The mediastinum is normal. There are mild chronic changes in both lung bases. There is no focal infiltrate or edema. There are no pleural effusions. There is no pneumothorax. There are hypertrophic changes of the left glenohumeral joint. IMPRESSION: No acute cardiopulmonary process. Mild chronic change. Reviewed, Interpreted and Dictated by Herb Turner MD Transcribed by Christine Peterson PA-C Authenticated and [facility]
--- NOTE | 2024-02-09 15:16 | PC.NURSE ---
[place] on the phone with REMINGTON Miller
[2024-02-09 15:28] LABS: Microscopic, Urine URINE MICROSCOPIC (MICROSCOPIC)
[2024-02-09 15:31] VITALS: BP 134/77; PULSE 75; O2SAT 93
[2024-02-09 15:32] LABS: Appearance,Urine CLEAR (Clear); Bilirubin,Urine Negative (Negative); Blood, Urine Negative (Negative); Color,Urine YELLOW (Yellow); Glucose,Urine (UA) Negative (Negative); Ketones,Urine Negative (Negative); Leukocyte Esterase,Urine TRACE (Negative); Nitrate,Urine Negative (Negative); Protein,Urine Negative (Negative); Specific Gravity, Urine <= 1.005 (1.005-1.030); Urobilinogen,Urine 0.2 EU/dl (0.2)
[2024-02-09 15:44] LABS: Bacteria,Urine Trace /lpf
--- NOTE | 2024-02-09 15:55 | PC.NURSE ---
Jennifer Lemus, RN with pain management at bedside with family
--- NOTE | 2024-02-09 15:58 | PC.NURSE ---
Tunde SHELTON speaking with Dr. Hinojosa
--- NOTE | 2024-02-09 15:58 | PC.NURSE ---
on the phone with Dr. Hinojosa at this time
[2024-02-09 16:17] VITALS: BP 134/77; PULSE 80; RESP 17; TEMP 36.7; O2SAT 93
== END 2024-02-09 16:29 | disposition home or self-care (01) ==
PROVIDERS: Physician Assistant; Emergency Provider Emergency Medicine; PCP Internal Medicine Adolescent Medicine
DX: M51.16 Intervertebral disc disorders with radiculopathy, lumbar region (principal); M96.1 Postlaminectomy syndrome, not elsewhere classified; Z45.1 Encounter for adjustment and management of infusion pump; Z97.8 Presence of other specified devices; F10.139 Alcohol abuse with withdrawal, unspecified; R11.0 Nausea; R68.83 Chills (without fever); J44.9 Chronic obstructive pulmonary disease, unspecified; F17.210 Nicotine dependence, cigarettes, uncomplicated; E03.9 Hypothyroidism, unspecified; E78.5 Hyperlipidemia, unspecified; E11.9 Type 2 diabetes mellitus without complications; Z79.84 Long term (current) use of oral hypoglycemic drugs
CPT/HCPCS: 62368; 71045; 81001; 96360; 99213; 99284; G0463

== ENCOUNTER 2024-02-16 09:51 | Outpatient (CLI) | payer MEDICARE, SELFPAY ==
--- NOTE | 2024-02-16 09:56 | XR_ITS ---
FINAL REPORT CLINICAL HISTORY: lt wrist pain COMPARISON: 01/19/2024 FINDINGS: LEFT WRIST 4 views demonstrate a subacute to chronic impacted fracture of the distal radius with callus formation at the fracture site. No other fracture identified. There is mild degenerative change. The soft tissues are unremarkable. IMPRESSION: Distal radius fracture with callus formation at the fracture site. Reviewed, Interpreted and Dictated by Ghulam Ramirez III, MD Transcribed by Shalonda Jameson Authenticated and [facility]
== END 2024-02-16 23:59 | disposition home or self-care (01) ==
LOC: RAD 09:54
PROVIDERS: PCP Nurse Practitioner Family; Visit Provider Orthopaedic Surgery
DX: M25.531 Pain in right wrist; S52.502A Unspecified fracture of the lower end of left radius, initial encounter for closed fracture
CPT/HCPCS: 73110

== ENCOUNTER 2024-02-17 11:30 | Outpatient (POV) | payer MEDICARE, SELFPAY ==
[2024-02-17 12:07] VITALS: BP 112/65; PULSE 90; RESP 21; O2SAT 96; BMI 26.6
--- NOTE | 2024-02-17 13:20 | A.OFFVIS_ITS ---
[facility] Pain Management SOAP Note Subjective:: Patient is a pleasant 78-year-old female who presents today for follow-up. Today she rates her pain a 5 out of 10 however states it has really not pain and more related to sweating and still having hot and cold flashes along with some leg cramping. Patient does state today is really the first day that she has noticed some improvement of her symptoms. She does state that the prior nausea and decreased appetite has resolved and now she is eating like a horse . Patient is currently managed with intrathecal fentanyl 250 mcg/mL with a daily dose of 1.56 mcg/day and bupivacaine 5 mg/mL with a daily dose of 0.0312 mg/day. Her Eric has been reviewed and is appropriate. Review of Systems: General: No recent weight changes, no fever, no sleep disturbances Respiratory: No cough, no shortness of air, no recurring pulmonary infections Cardiovascular/peripheral vascular: No chest pain, no palpitations, no edema, no shortness of breath Gastrointestinal: No new onset incontinence, normal bowel movements reported Genitourinary: No new onset incontinence Musculoskeletal: Leg cramps Psychiatric: [Normal mood/affect] Neurological: [Denies weakness in extremities], [denies balance issues] Objective:: Physical Exam: General: Alert and oriented x3, no acute distress, pleasant and cooperative Lungs: Respirations even and unlabored, symmetrical chest expansion Eyes: PERRL Musculoskeletal: Flexion and extension of lumbar [spine] somewhat guarded secondary to pain, [antalgic gait noted] Neurological: Speech clear, no gross sensory deficit Assessment:: Chronic pain syndrome, degenerative disc disease of lumbar spine with lumbar radiculopathy symptoms, lumbar postlaminectomy syndrome Plan:: Patient is tentatively scheduled for March 11 to have her pump explanted. I have discussed at length with the patient that this is the first medication that she has had that his given 100% pain relief even at the low dosage she is currently. I have counseled the patient that hopefully her additional side effects will subside with a little bit more of time and that she may decide that she is doing well with the pump. I have counseled the patient at any point in time she can discontinue the plan to have her pump removed. I did also discussed with the patient that it is not recommended for her age group to be on Benadryl but this can cause additional symptoms of confusion, etc. I have counseled her to discontinue this medication and that she can take Tylenol PM to help with sleeping. I will send in a muscle relaxer baclofen 10 mg at bedtime and provide a 2-week supply of this medication. I have also counseled the patient that due to her chronic history of alprazolam use and other benzodiazepine medications that those are also not recommended for her age and that if she feels like they are not providing beneficial relief that it may be beneficial to talk to her primary care about trying a completely different class of medications that would help with PTSD and anxiety. I have discussed with the patient that I will send referral to psychology for the PTSD and anxiety issues and that they also may be able to help provide insight for other medications that may be useful. Patient acknowledges understanding and agrees with this plan of care. Patient will return to clinic in 1 week for reevaluation of symptoms and plan of care. Patient has been instructed to contact the clinic with any concerns before the next appointment. Dr. Hinojosa has reviewed this note and agrees with this plan of care. This note was dictated using voice recognition software and make contain errors or omissions. -- It Is medically necessary for this patient to continue to have their intrathecal pump refilled at regular intervals. This patient had an intrathecal pain pump implanted after meeting criteria of chronic intractable pain for greater than 3 months and failing conservative treatments. Patient has committed and been compliant to the treatment plan and all planned follow up care. Since implantation of the intrathecal pain pump, the patient has had decreased pain and been more functional. Oral medications have been reduced including intake of oral opioids. Patient continues to do well with intrathecal therapy with decrease in pain symptoms and increase in functional status. Stopping intrathecal medications can lead to life threatening withdrawal, seizures, cardiac arrest, severe pain, and possible . Pumps that are not refilled at regular intervals can be damages and cause and need for replacement. We continually titrate dose and concentration to optimize pain relief and function. We are limited in concentration for certain drugs to safely deliver medications through the pump and stay within the recommendations from the Polyanalgesic Consensus Committee Guidelines. Depending on dose and concentration these pumps may need to be refilled sooner than 3 [address] tit[address] [facility] Disclaimer: The information contained in this section may have been updated after the patient was seen, as this information can be updated by other users. Medical History (Updated 02/16/24 @ 14:22 by Nela Layne MD) Asthma COPD mixed type Pulmonary emphysema Encounter for screening for malignant neoplasm of lung Smoking greater than 30 pack years Oxygen dependent Nephrolithiasis History of left heart catheterization Smoker Hypothyroid Tobacco abuse COPD (chronic obstructive pulmonary disease) Nonspecific ST-T changes Tachycardia Diabetes HLD (hyperlipidemia) SOB (shortness of breath) Angina, class IV Surgical History History of surgical removal of skin lesion History of spinal surgery History of tonsillectomy History of colon surgery History of section History of bladder surgery Family History Other No significant family history Social History Smoking Status: Current every day smoker tobacco type: cigarettes packs per day: 1 second hand exposure: Yes alcohol intake: never counseling provided: provider counseling substance use type: denies use current occupational status: retired Travel in the last 8 weeks: None household members: children housing: house current occupational exposures/hazards: No caffeine: No
--- NOTE | 2024-02-18 09:11 | PC.NURSE ---
mario mello requested for pt to be referred to psych. Appt made for pt. Called pt at this time to notify her of appt time March 04 at 10 am. Pt verbalized okay with appt date/time.
== END 2024-02-17 23:59 | disposition home or self-care (01) ==
PROVIDERS: PCP Nurse Practitioner Family; Visit Provider Nurse Practitioner Family
DX: G89.4 Chronic pain syndrome (principal); M51.16 Intervertebral disc disorders with radiculopathy, lumbar region; M96.1 Postlaminectomy syndrome, not elsewhere classified; Z97.8 Presence of other specified devices
CPT/HCPCS: 99212; G0463

== ENCOUNTER 2024-02-24 11:26 | Outpatient (POV) | payer MEDICARE, SELFPAY ==
[2024-02-24 12:28] VITALS: BP 93/53; PULSE 84; RESP 18; O2SAT 94; BMI 26.4
--- NOTE | 2024-02-24 12:42 | EXP.PAIN.SOA ---
[facility] Pain Management SOAP Note Subjective:: Patient is a pleasant 78-year-old female who presents today for follow-up. Today she rates her pain a 5 out of 10. She states the pain is more related to the continued chills, hot sweats and headache more so than pain. She does today states she has had a little bit more pain around her tailbone area. She denies any new trauma or injury. Patient is currently managed with fentanyl 250 mcg/mL with a daily dose of 1.56 mcg/day and bupivacaine 5 mg/mL with a daily dose of 0.0312 mg/day. Patient was discussed at length at prior visits about having her device removed due to the ongoing issues. Patient does state this is still the first medication that is really provided significant pain relief however the extra symptoms she has been experiencing are affecting her sleep and that she is barely getting any. At our last visit we did discuss at length about stopping the Benadryl and she states that she has discontinued this medication and use Tylenol PM. Patient states when she did use the Tylenol PM she did actually get much better sleep and that 1 day it was 8 hours. We did also talk at one of her last visits about changing the pump medication to bupivacaine only with no opioids. She does state today that she would also like to try this option before having the surgery to remove it completely her Eric has been reviewed and is appropriate. Review of Systems: General: No recent weight changes, no fever, no sleep disturbances Respiratory: No cough, no shortness of air, no recurring pulmonary infections Cardiovascular/peripheral vascular: No chest pain, no palpitations, no edema, no shortness of breath Gastrointestinal: No new onset incontinence, normal bowel movements reported Genitourinary: No new onset incontinence Musculoskeletal: Buttocks pain, headache chills, hot flashes Psychiatric: [Normal mood/affect] Neurological: [Denies weakness in extremities], [denies balance issues] Objective:: Physical Exam: General: Alert and oriented x3, no acute distress, pleasant and cooperative Lungs: Respirations even and unlabored, symmetrical chest expansion Eyes: PERRL Musculoskeletal: Flexion and extension of lumbar [spine] somewhat guarded secondary to pain, [antalgic gait noted] Neurological: Speech clear, no gross sensory deficit Assessment:: Degenerative disc disease of lumbar spine with lumbar radiculopathy symptoms, lumbar postlaminectomy syndrome Plan:: I did discuss with the patient regarding changing her pump medication to bupivacaine. I am okay with proceeding forward with this option while we wait for her surgery date of March 11. We will contact [facility] and have the pump medication changed to bupivacaine 5 mg/mL with a daily dose of 2.5 mg per day. Patient is agreeable to this plan of care. We will contact the patient with her next intrathecal refill date to have this medication switch. We will see the patient back in the clinic at the next intrathecal refill. Patient has been instructed to contact the clinic with any concerns before the next appointment. Dr. Hinojosa has reviewed this note and agrees with this plan of care. This note was dictated using voice recognition software and make contain errors or omissions. -- It Is medically necessary for this patient to continue to have their intrathecal pump refilled at regular intervals. This patient had an intrathecal pain pump implanted after meeting criteria of chronic intractable pain for greater than 3 months and failing conservative treatments. Patient has committed and been compliant to the treatment plan and all planned follow up care. Since implantation of the intrathecal pain pump, the patient has had decreased pain and been more functional. Oral medications have been reduced including intake of oral opioids. Patient continues to do well with intrathecal therapy with decrease in pain symptoms and increase in functional status. Stopping intrathecal medications can lead to life threatening withdrawal, seizures, cardiac arrest, severe pain, and possible . Pumps that are not refilled at regular intervals can be damages and cause and need for replacement. We continually titrate dose and concentration to optimize pain relief and function. We are limited in concentration for certain drugs to safely deliver medications through the pump and stay within the recommendations from the Polyanalgesic Consensus Committee Guidelines. Depending on dose and concentration these pumps may need to be refilled sooner than 3 months as we titrate. [facility] Disclaimer: The information contained in this section may have been updated after the patient was seen, as this information can be updated by other users. Medical History (Updated 02/16/24 @ 14:22 by Nela Layne MD) Asthma COPD mixed type Pulmonary emphysema Encounter for screening for malignant neoplasm of lung Smoking greater than 30 pack years Oxygen dependent Nephrolithiasis History of left heart catheterization Smoker Hypothyroid Tobacco abuse COPD (chronic obstructive pulmonary disease) Nonspecific ST-T changes Tachycardia Diabetes HLD (hyperlipidemia) SOB (shortness of breath) Angina, class IV Surgical History History of surgical removal of skin lesion History of spinal surgery History of tonsillectomy History of colon surgery History of section History of bladder surgery Family History Other No significant family history Social History Smoking Status: Current every day smoker tobacco type: cigarettes packs per day: 1 second hand exposure: Yes alcohol intake: never counseling provided: provider counseling substance use type: denies use current occupational status: retired Travel in the last 8 weeks: None household members: children housing: house current occupational exposures/hazards: No caffeine: No
--- NOTE | 2024-02-24 14:55 | PC.NURSE ---
appointment made for double cap procedure in [place] with Dr. Hinojosa relayed to extended bridge bolus time with changing medications. Pt was called at this time and notified of of appointment date and time of of 03/07/24 2:20pm.
== END 2024-02-24 23:59 | disposition home or self-care (01) ==
LOC: SC.PAIN 11:27
PROVIDERS: PCP Nurse Practitioner Family; Visit Provider Nurse Practitioner Family
DX: M51.16 Intervertebral disc disorders with radiculopathy, lumbar region (principal); M96.1 Postlaminectomy syndrome, not elsewhere classified; Z97.8 Presence of other specified devices
CPT/HCPCS: 99212; G0463

== ENCOUNTER 2024-03-04 11:26 | Outpatient (CLI) | payer MEDICARE, SELFPAY ==
[2024-03-04 12:15] LABS: Basophils # 0.2 K/mm3 (0-0.2); Basophils % 1.5 % (0.1-2.0); Eosinophils # 0.3 K/mm3 (0.0-0.4); Eosinophils % 2.2 % (0.1-12.0); Hematocrit 47.7 % (37.0-47.0); Hemoglobin 15.1 g/dL (12.2-16.2); Lymphocytes # 5.5 K/mm3 (0.7-4.5); Lymphocytes % 49.2 % (10-50); Mean Corpuscular HGB Conc 31.6 g/dL (31.8-35.4); Mean Corpuscular Hemoglobin 31.3 pg (27.0-31.2); Mean Platelet Volume 7.8 fl (7.4-10.4); Monocytes # 0.6 K/mm3 (0.1-1.0); Monocytes % 4.9 % (1.7-9.3); Neutrophils # 4.7 K/mm3 (1.8-7.8); Neutrophils % 42.1 % (37.0-80.0); Platelet Count 279 K/mm3 (142-424); Red Blood Count 4.81 M/mm3 (4.20-5.40); Red Cell Distribution Width 13.6 % (11.5-17.5); White Blood Count 11.2 K/mm3 (4.8-10.8)
[2024-03-04 12:42] LABS: Alanine Aminotransferase 16 U/L (12-78); Albumin Level 4.3 g/dl (3.5-5.0); Albumin/Globulin Ratio 1.4 (1.1-1.8); Aspartate Amino Transferase 30 U/L (14-36); Bilirubin,Total 0.8 mg/dl (0.2-1.3); Blood Urea Nitrogen 20 mg/dl (7-17); Calcium 9.8 mg/dl (8.4-10.2); Carbon Dioxide 31 mmol/L (22.0-30.0); Chloride 99 mmol/L (98-107); Estimated Glomerular Filt Rate 61 ml/min (>60); GFR (African American) 73 ML/MIN (>60); Globulin 3.1 g/dL (1.3-3.2); Glucose 111 mg/dl (74-100); Sodium 140 mmol/L (136-145); Total Protein,Serum 7.4 g/dl (6.3-8.2)
[2024-03-04 12:44] LABS: Alkaline Phosphatase < 20 U/L (38-126)
[2024-03-04 12:58] LABS: 25-OH Vitamin D, Total 39.9 ng/mL (30-100)
[2024-03-11 00:08] LABS: D001-IgE D pteronyssinus <0.10 kU/L (Class 0); D002-IgE D farinae <0.10 kU/L (Class 0); E001-IgE Cat Dander <0.10 kU/L (Class 0); E005-IgE Dog Dander <0.10 kU/L (Class 0); E072-IgE Mouse Urine <0.10 kU/L (Class 0); G002-IgE Bermuda Grass <0.10 kU/L (Class 0); G006-IgE Timothy Grass <0.10 kU/L (Class 0); I006-IgE Cockroach, German <0.10 kU/L (Class 0); Immunoglobulin E, Total 17 IU/mL (6-495); M001-IgE Penicillium chrysogen <0.10 kU/L (Class 0); M002-IgE Cladosporium herbarum <0.10 kU/L (Class 0); M003-IgE Aspergillus fumigatus <0.10 kU/L (Class 0); M006-IgE Alternaria alternata <0.10 kU/L (Class 0); T001-IgE Maple/Box Elder <0.10 kU/L (Class 0); T003-IgE Common Silver Birch <0.10 kU/L (Class 0); T006-IgE Cedar, Mountain <0.10 kU/L (Class 0); T007-IgE Oak, White <0.10 kU/L (Class 0); T008-IgE Elm, American <0.10 kU/L (Class 0); T010-IgE Walnut <0.10 kU/L (Class 0); T011-IgE Maple Leaf Sycamore <0.10 kU/L (Class 0); T014-IgE Cottonwood <0.10 kU/L (Class 0); T015-IgE Ash, White <0.10 kU/L (Class 0); T022-IgE Pecan, Hickory <0.10 kU/L (Class 0); T070-IgE White Mulberry <0.10 kU/L (Class 0); W001-IgE Ragweed, Short <0.10 kU/L (Class 0); W011-IgE Thistle, Russian <0.10 kU/L (Class 0); W014-IgE Pigweed, Common <0.10 kU/L (Class 0); W018-IgE Sheep Sorrel <0.10 kU/L (Class 0)
== END 2024-03-04 23:59 | disposition home or self-care (01) ==
LOC: LAB 11:30
PROVIDERS: Internal Medicine Pulmonary Disease; PCP Nurse Practitioner Family; Visit Provider Nurse Practitioner Family
DX: R11.0 Nausea (principal); R53.1 Weakness; R23.2 Flushing
CPT/HCPCS: 36415; 80053; 82306; 82785; 85025; 86003

== ENCOUNTER 2024-03-15 10:04 | Outpatient (POV) | payer MEDICARE, SELFPAY ==
[2024-03-15 10:21] VITALS: BP 109/66; PULSE 115; RESP 18; TEMP 36.6; O2SAT 95; BMI 27.1
--- NOTE | 2024-03-15 10:40 | EXP.PAIN.SOA ---
[facility] Disclaimer: The information contained in this section may have been updated after the patient was seen, as this information can be updated by other users. Medical History Asthma COPD mixed type Pulmonary emphysema Encounter for screening for malignant neoplasm of lung Smoking greater than 30 pack years Oxygen dependent Nephrolithiasis History of left heart catheterization Smoker Hypothyroid Tobacco abuse COPD (chronic obstructive pulmonary disease) Nonspecific ST-T changes Tachycardia Diabetes HLD (hyperlipidemia) SOB (shortness of breath) Angina, class IV Surgical History History of surgical removal of skin lesion History of spinal surgery History of tonsillectomy History of colon surgery History of section History of bladder surgery Family History Other No significant family history Social History Smoking Status: Current every day smoker tobacco type: cigarettes packs per day: 1 second hand exposure: Yes alcohol intake: never counseling provided: provider counseling substance use type: denies use current occupational status: other Travel in the last 8 weeks: None household members: children housing: house current occupational exposures/hazards: No caffeine: No Oswestry and Opiod Risk Tools Opiod Risk Tool 3. What is your age?: 78 4. Do you have a history of preadolescent sexual abuse?: No 6. Do you have depression?: No 7. What is your gender?: Female PM Subjective & Objective Subjective Subjective:: Patient is a very pleasant 78-year-old female comes our clinic today for follow-up visit regarding her intrathecal pain pump. Her medication was changed from fentanyl to straight bupivacaine 5 mg/mL 1 week ago. Her current rate is 2.5 mg/day. She reports she is having pain in the low back as well as bilateral hip and leg radicular symptoms. She rates her pain 8/10. I discussed in detail with her regarding finding the threshold of pain relief without numbness in the lower extremities with bupivacaine. I will increase her 10% today. She will return to the clinic in 1 to 2 weeks for additional increase if needed. Pain at rest (0-10 scale): 8 Objective Objective:: Patient is awake alert [place] x 3. No acute distress. Flexion-extension lumbar spine guarded secondary to pain. Deep tendon reflexes upper and lower extremities normal. Motor strength upper and lower extremities normal. There is no gross sensory deficit. Gait is normal. Has patient had previous pain injection?: No Conservative treatment options previously tried: None Meds Home Medications and Allergies Home Medications Medication Instructions Recorded Confirmed Type gabapentin 300 mg capsule 900 mg PO HS neuropathy 10/06/17 03/15/24 History alprazolam 1 mg tablet 1 mg PO TIDP PRN Anxiety 08/24/18 03/15/24 History omeprazole 40 mg capsule,delayed 40 mg PO BID Reflux/Acid reflux 08/24/18 03/15/24 History release levalbuterol tartrate 45 2 puff inhalation Q4H Breathing 02/07/19 03/15/24 History mcg/actuation aerosol inhaler problems milnacipran 100 mg tablet 100 mg PO BID FIBROMYALGIA 02/07/19 03/15/24 History rosuvastatin 20 mg tablet 20 mg PO HS Cholesterol 02/08/19 03/15/24 History levocetirizine 5 mg tablet 5 mg PO HS Allergy symptoms 10/11/20 03/15/24 History levothyroxine 125 mcg tablet 125 mcg PO DAILY THYROID 12/18/20 03/15/24 History metformin 500 mg tablet,extended 500 mg PO DAILY Diabetes 12/18/20 03/15/24 History release 24 hr montelukast 10 mg tablet 10 mg PO HS Allergy symptoms 12/18/20 03/15/24 History sitagliptin phosphate 100 mg tablet 100 mg PO DAILY Diabetes 12/18/20 03/15/24 History aspirin 81 mg tablet,delayed 81 mg PO DAILY [facility] 04/11/21 03/15/24 History release ergocalciferol (vitamin D2) 1,250 50,000 units PO WEEKLY Supplement 02/20/22 03/15/24 History mcg (50,000 unit) capsule metoprolol succinate 50 mg 50 mg PO DAILY High blood pressure 03/31/22 03/15/24 History tablet,extended release 24 hr furosemide 40 mg tablet 40 mg PO DAILYP PRN Fluid 10/30/22 03/15/24 History potassium chloride 10 mEq 10 meq PO BID Supplement 01/22/23 03/15/24 History tablet,extended release levalbuterol HCl 0.63 mg/3 mL 0.63 mg inhalation . PRN . 01/10/24 07/02/24 History solution for nebulization linaclotide 72 mcg capsule 72 mcg PO DAILY PRN IBS 09/23/23 03/15/24 History (Linzess) duloxetine 30 mg capsule,delayed 30 mg PO BID 12/24/23 03/15/24 History release diclofenac sodium 1 % topical gel 2 g topical QID #100 grams 12/28/23 03/15/24 Rx jiorbxmv-qjvncnhjmhj-XjAg(PF) 5 20 ml continuous epidural CONT Pain 02/04/24 03/15/24 History mcg/mL-0.04 % injection pump reservoir albuterol sulfate 90 mcg/actuation 2 inh inhalation Q6H PRN shortness 02/16/24 03/15/24 Rx aerosol inhaler (Ventolin HFA) of breath or wheezing 90 days #18 grams budesonide-formoterol HFA 160 2 puff inhalation BID 90 days 02/16/24 03/15/24 Rx mcg-4.5 mcg/actuation aerosol #10.2 grams inhaler (Symbicort) baclofen 10 mg tablet 10 mg PO HS #14 tabs 02/17/24 03/15/24 Rx New Prescriptions to Start Prescriptions: Allergies Allergy/AdvReac Type Severity Reaction Status Date / Time aripiprazole [From ABILIFY] Allergy Unknown Unknown Verified 03/15/24 10:22 allergy reaction ciprofloxacin [CIPROFLOXACIN] Allergy Unknown Unknown Verified 03/15/24 10:22 allergy reaction phenazopyridine Allergy Unknown Unknown Verified 03/15/24 10:22 [PHENAZOPYRIDINE] allergy reaction Assessment and Plan *Assessment and plan (1) UTI (urinary tract infection): Status: Acute Qualifiers: Hematuria presence: without hematuria Urinary tract infection type: site unspecified Qualified Code(s): N39.0 - Urinary tract infection, site not specified Category: Medical Code(s): N39.0 - Urinary tract infection, site not specified (2) HTN (hypertension): Status: Chronic Category: Medical Code(s): I10 - Essential (primary) hypertension (3) Tobacco abuse: Status: Chronic Category: Medical Code(s): Z72.0 - Tobacco use (4) COPD (chronic obstructive pulmonary disease): Status: Chronic Qualifiers: COPD type: unspecified COPD Qualified Code(s): J44.9 - Chronic obstructive pulmonary disease, unspecified Category: Medical Code(s): J44.9 - Chronic obstructive pulmonary disease, unspecified (5) Tachycardia: Status: Resolved Category: Medical Code(s): R00.0 - Tachycardia, unspecified (6) Type 2 diabetes mellitus: Status: Acute Category: Medical Code(s): E11.9 - Type 2 diabetes mellitus without complications (7) JOSELINE (generalized anxiety disorder): Status: Acute Category: Medical Code(s): F41.1 - Generalized anxiety disorder (8) Elevated troponin: Status: Resolved Category: Medical Code(s): R77.8 - Other specified abnormalities of plasma proteins (9) HLD (hyperlipidemia): Status: Chronic Category: Medical Code(s): E78.5 - Hyperlipidemia, unspecified (10) Pain syndrome, chronic: Status: Acute Category: Medical Code(s): G89.4 - Chronic pain syndrome (11) Weakness: Status: Resolved Category: Medical Code(s): R53.1 - Weakness Plan Patient's pump rate will be increased by 20% today. Her new rate will be 3 mg/day. She will return to the clinic in 1 to 2 weeks for follow-up visit and increase if needed. Patient was told she is welcome to call our clinic at any time if in fact she needs this prior to the appointment date.
== END 2024-03-15 23:59 | disposition home or self-care (01) ==
LOC: SC.PAIN 10:06
PROVIDERS: PCP Nurse Practitioner Family; Visit Provider Nurse Anesthetist, Certified Registered
DX: G89.4 Chronic pain syndrome (principal); N39.0 Urinary tract infection, site not specified; I10 Essential (primary) hypertension; Z72.0 Tobacco use; J44.9 Chronic obstructive pulmonary disease, unspecified; R00.0 Tachycardia, unspecified; E11.9 Type 2 diabetes mellitus without complications; F41.1 Generalized anxiety disorder; R77.8 Other specified abnormalities of plasma proteins; E78.5 Hyperlipidemia, unspecified; R53.1 Weakness
CPT/HCPCS: 99212; G0463

== ENCOUNTER 2024-03-23 11:21 | Outpatient (POV) | payer MEDICARE, SELFPAY ==
--- NOTE | 2024-03-23 11:56 | P.PCN_ITS ---
Procedure Date: 03/23/24 Time: 11:56 Anesthesiologist:: Cathie Benjamin APRN Complications:: None Pre-procedure Diagnosis:: Degenerative disc disease of lumbar spine with lumbar radiculopathy symptoms Post-procedure Diagnosis:: Same Indications for Procedure:: Patient is a pleasant 78-year-old female who presents today for intrathecal adjustment and reprogram. Today she rates her pain a 3 out of 10. Patient denies any new trauma or injury. She does state that overall she is still getti ng good relief with her pump in comparison to her last medication change. Patient is currently managed with bupivacaine 5 mg/mL with a daily dose of 2.9959 mg/day. She denies any side effects. She does think that she could use additional increase. She states that the current medication just seems to last about 6 days and then she is back in pain. Patient is scheduled for her first at home refill on April 06. Her Eric has been reviewed and is appropriate. Physical Exam: General: Alert and oriented x3, no acute distress, pleasant and cooperative Lungs: Respirations even and unlabored, symmetrical chest expansion Eyes: PERRL Musculoskeletal: Flexion and extension of lumbar [spine] somewhat guarded secondary to pain, [antalgic gait noted] Neurological: Speech clear, no gross sensory deficit Procedure Details:: Informed consent was obtained and the risk and benefits of the procedure were explained to the patient. Patient was taken to the procedure room where noninvasive monitoring was placed including noninvasive blood pressure cuff and pulse oximeter. Patient's pump was interrogated and was reprogrammed to bupivacaine 3.2934 mg/day. The patient tolerated the procedure well with no complications. Plan and Disposition:: Patient tolerated her intrathecal increase with no complications and was discharged neurologically intact. Patient will return to clinic in 1 month for reevaluation of symptoms and plan of care. We will see the patient back in the clinic at the next intrathecal refill. Patient has been instructed to contact the clinic with any concerns before the next appointment. Dr. Hinojosa has reviewed this note and agrees with this plan of care. This note was dictated using voice recognition software and make contain errors or omissions. -- It Is medically necessary for this patient to continue to have their intrathecal pump refilled at regular intervals. This patient had an intrathecal pain pump implanted after meeting criteria of chronic intractable pain for greater than 3 months and failing conservative treatments. Patient has committed and been compl iant to the treatment plan and all planned follow up care. Since implantation of the intrathecal pain pump, the patient has had decreased pain and been more functional. Oral medications have been reduced including intake of oral opioids. Patient continues to do well with intrathecal therapy with decrease in pain symptoms and increase in functional status. Stopping intrathecal medications can lead to life threatening withdrawal, seizures, cardiac arrest, severe pain, and possible . Pumps that are not refilled at regular intervals can be damages and cause and need for replacement. We continually titrate dose and concentration to optimize pain relief and function. We are limited in concentration for certain drugs to safely deliver medications through the pump and stay within the recommendations from the Polyanalgesic Consensus Committee Guidelines. Depending on dose and concentration these pumps may need to be refilled sooner than 3 months as we titrate.
[2024-03-23 12:03] VITALS: BP 94/67; PULSE 100; RESP 16; O2SAT 94; BMI 27.1
== END 2024-03-23 23:59 | disposition home or self-care (01) ==
PROVIDERS: PCP Nurse Practitioner Family; Visit Provider Nurse Practitioner Family
DX: G89.29 Other chronic pain (principal); M51.36 Other intervertebral disc degeneration, lumbar region; M54.16 Radiculopathy, lumbar region
CPT/HCPCS: 62368; 99213; G0463

== ENCOUNTER 2024-04-11 13:43 | Outpatient (POV) | payer MEDICARE, MEDICAID, SELFPAY ==
[2024-04-11 14:01] VITALS: BP 108/68; PULSE 91; RESP 16; O2SAT 94; BMI 27.1
--- NOTE | 2024-04-11 14:16 | P.PCN_ITS ---
Procedure Date: 04/11/24 Time: 14:16 Anesthesiologist:: Cathie Benjamin APRN Complications:: None Pre-procedure Diagnosis:: Degenerative disc disease of lumbar spine with lumbar radiculopathy symptoms Post-procedure Diagnosis:: Same Indications for Procedure:: Patient is a pleasant 78-year-old female who presents today for intrathecal adjustment and reprogram. Today she rates her pain an 8 out of 10. Patient denies any new trauma or injury. She does state that she is experiencing worse honey pain throughout her low back and is asking for an adjustment of her pump. Patient is currently managed with intrathecal bupivacaine 5 mg/mL with a daily dose of 3.9494 mg/day. She does also state that her last intrathecal refill that her nurse that came out to fill her at [facility] said that she was nearly empty and that it had not even been a month. Patient is asking whether or not we need to make any adjustments regarding this as well. Her Eric has been reviewed and is appropriate. Physical Exam: General: Alert and oriented x3, no acute distress, pleasant and cooperative Lungs: Respirations even and unlabored, symmetrical chest expansion Eyes: PERRL Musculoskeletal: Flexion and extension of lumbar [spine] somewhat guarded secondary to pain, [antalgic gait noted] Neurological: Speech clear, no gross sensory deficit Procedure Details:: Informed consent was obtained and the risk and benefits of the procedure were explained to the patient. Patient was taken to the procedure room where noninvasive monitoring was placed including noninvasive blood pressure cuff and pulse oximeter. Patient's pump was interrogated and was reprogrammed to bupivacaine 4.3416 mg/day. The patient tolerated the procedure well with no complications. Plan and Disposition:: Patient tolerated her intrathecal increase with no complications and was discharged neurologically intact. I have also discussed with the patient that we will change her concentration to bupivacaine 10 mg/mL. This will be called and so it is available at her next home refill. Patient agrees with this plan of care. Patient has been instructed to contact the clinic with any concerns before the next appointment. Dr. Hinojosa has reviewed this note and agrees with this plan of care. This note was dictated using voice recognition software and make contain errors or omissions. -- It Is medically necessary for this patient to continue to have their intrathecal pump refilled at regular intervals. This patient had an intrathecal pain pump implanted after meeting criteria of chronic intractable pain for greater than 3 months and failing conservative treatments. Patient has committed and been compliant to the treatment plan and all planned follow up care. Since implantation of the intrathecal pain pump, the patient has had decreased pain and been more functional. Oral medications have been reduced including intake of oral opioids. Patient continues to do well with intrathecal therapy with decrease in pain symptoms and increase in functional status. Stopping intrathecal medications can lead to life threatening withdrawal, seizures, cardiac arrest, severe pain, and possible . Pumps that are not refilled at regular intervals can be damages and cause and need for replacement. We continually titrate dose and concentration to optimize pain relief and function. We are limited in concentration for certain drugs to safely deliver medications through the pump and stay within the recommendations from the [employer] Consensus [employer] Guidelines. Depending on dose and concentration these pumps may need to be refilled sooner than 3 months as we titrate.
== END 2024-04-11 23:59 | disposition home or self-care (01) ==
PROVIDERS: PCP Nurse Practitioner Family; Visit Provider Nurse Practitioner Family
DX: G89.29 Other chronic pain (principal); M51.36 Other intervertebral disc degeneration, lumbar region; M54.16 Radiculopathy, lumbar region
CPT/HCPCS: 62368; 99212; G0463

== ENCOUNTER 2024-04-14 14:35 | Outpatient (POV) | payer MEDICARE, MEDICAID, SELFPAY ==
[2024-04-14 14:58] VITALS: BP 106/54; PULSE 117; RESP 21; O2SAT 94; BMI 26.8
--- NOTE | 2024-04-14 15:32 | P.PCN_ITS ---
Procedure Date: 04/14/24 Time: 14:21 Anesthesiologist:: Cathie Benjamin APRN Complications:: None Pre-procedure Diagnosis:: Degenerative disc disease of lumbar spine with lumbar radiculopathy symptoms, chronic pain syndrome Post-procedure Diagnosis:: Same Indications for Procedure:: Patient is a pleasant 78-year-old female who presents today for intrathecal adjustment and reprogram. Today she rates her pain an 8 out of 10. Patient states she did not notice any improvement with her last increase. She states that she continues to have the chronic pain across her low back with radiating numbness and tingling down into her lower extremities. Patient describes this as a constant aching, throbbing sensation with numbness and tingling into her legs. Patient states it is unbearable and that it does affect her ability to perform activities of daily living such as cooking and cleaning. Patient states that this has been a chronic issue that will flareup from time to time. Patient states overall she had been doing pretty good until her last pump refill and that she felt like whether or not the positioning aggravated her overall low back symptoms. Patient states that the simplest activity causes severe pain and she is interested in any options we may be able to provide. Patient is currently managed with intrathecal bupivacaine 5 mg/mL with a daily dose of 4.3416 mg/day. Patient has continued to try and stay as active as she can at home including stretching however is very limited due to the worsening pain and her chronic pulmonary comorbidities. Her Eric has been reviewed and is appropriate. Physical Exam: General: Alert and oriented x3, no acute distress, pleasant and cooperative Lungs: Respirations even and unlabored, symmetrical chest expansion Eyes: PERRL Musculoskeletal: Flexion and extension of lumbar [spine] somewhat guarded secondary to pain, [antalgic gait noted] extreme point tenderness along lower lumbar spine and a positive bilateral leg raise Neurological: Speech clear, no gross sensory deficit Procedure Details:: Informed consent was obtained and the risk and benefits of the procedure were explained to the patient. Patient was taken to the procedure room where noninvasive monitoring was placed including noninvasive blood pressure cuff and pulse oximeter. Patient's pump was interrogated and was reprogrammed to bupivacaine 5.2123 mg/day. The patient tolerated the procedure well with no complications. Plan and Disposition:: Patient tolerated her intrathecal increase with no complications and was discharged neurologically intact. Patient did have extreme point tenderness with palpation along her lower lumbar spine and positive bilateral leg raise. I did discuss with patient that she may benefit from a lumbar epidural steroid inj ection. Risk and benefits were discussed with patient and she would like to proceed forward with this plan of care. Patient is not on any blood thinners. Patient has gotten these injections in the past and did state that they would typically help by at least 50% and last on average 2 to 3 months. Patient states it has been quite a while since she has had any of these. Patient has tried and failed conservative therapy including continued at home stretching and exercise for longer than 6 weeks. Patient is not a candidate for current physical therapy due to her severe COPD and oxygen dependence. We will submit to insurance for an LESI L4-L5 under fluoroscopy. Patient has been instructed to contact the clinic with any concerns before the next appointment. Dr. Hinojosa has reviewed this note and agrees with this plan of care. This note was dictated using voice recognition software and make contain errors or omissions. All injections are used with Lidocaine or Bupivacaine and Depo Medrol.
== END 2024-04-14 23:59 | disposition home or self-care (01) ==
PROVIDERS: Visit Provider Nurse Practitioner Family
DX: M51.16 Intervertebral disc disorders with radiculopathy, lumbar region (principal); G89.4 Chronic pain syndrome; Z73.89 Other problems related to life management difficulty
CPT/HCPCS: 62368; 99213; G0463

== ENCOUNTER 2024-04-19 11:19 | Day surgery (SDC) | payer MEDICARE, MEDICAID, SELFPAY ==
[2024-04-19 11:36] VITALS: BP 128/50; PULSE 103; RESP 16; TEMP 36.3; O2SAT 90; BMI 26.6
[2024-04-19 12:02] VITALS: BP 97/56; PULSE 81; RESP 20; O2SAT 99
--- NOTE | 2024-04-19 12:04 | EXP.PAIN.PRO ---
Procedure Date: 04/19/24 Time: 12:00 Anesthesiologist:: Ian Zambrano CRNA Complications:: None Pre-procedure Diagnosis:: Degenerative disc lumbar spine multilevels. Lumbar radiculopathy. Lumbar postlaminectomy syndrome. Lumbar spondylosis. Multilevel lumbar facet arthropathy. Post-procedure Diagnosis:: Same. Indications for Procedure:: Patient is a very pleasant 78-year-old female that comes her clinic today for lumbar epidural steroid injection at the L4-5 level. After observing the lumbar spine under fluoroscopy. The injection will be given at the L5-S1 level. The L4-5 level will not be accessible. Patient having increased pain for the last several weeks. We managed her with intrathecal pain pump containing bupivacaine. 5 mg/mL. She is at a rate of 5.21 to 3 mg/day. Milligrams per day. Patient describes low back pain is constant, dull, sharp, stabbing. She also reports bilateral hip and leg radicular symptoms at times. She is requesting increase today. She obviously is in pain. I will increase her by 10%. Procedure Details:: Procedure: Lumbar epidural steroid injection under fluoroscopy Informed consent was obtained and the risks and benefits of the procedure were explained to the patient. The patient was taken to the procedure room and noninvasive monitors placed, including noninvasive blood pressure cuff and pulse oximeter. The back was viewed using C-arm Fluoroscopy and prepped using Chloraprep as a cleansing solution and the L4-L5 interspace was palpated. Skin and subcutaneous tissues were anesthetized using lidocaine 1.5% and a 25-gauge needle. After this, an 18-gauge Touhy epidural needle was placed into the L4-L5 interspace and advanced using fluoroscopic guidance and loss of resistance to air until the epidural space was encountered. After confirmation of needle placement in the epidural space, with dye, a solution containing normal saline, 3 mL and Depo-Medrol 80 mg were incrementally injected into the lumbar epidural space. The patient tolerated the procedure well with no complications. The patient was observed in the Pain Clinic and then discharged home neurologically intact. Patient did take a pain pump was increased by 10%. Her new rate will be 5.7413 mg/day. Plan and Disposition:: Patient will come to our clinic next week for follow-up. Also, intrathecal pump adjustment if needed.
== END 2024-04-19 12:05 | disposition home or self-care (01) ==
PROVIDERS: PCP Nurse Practitioner Family; Visit Provider Nurse Anesthetist, Certified Registered
DX: M51.16 Intervertebral disc disorders with radiculopathy, lumbar region (principal); M47.26 Other spondylosis with radiculopathy, lumbar region
CPT/HCPCS: 62323; J1010

== ENCOUNTER 2024-04-27 08:47 | Outpatient (POV) | payer MEDICARE, MEDICAID, SELFPAY ==
--- NOTE | 2024-04-27 09:30 | EXP.PAIN.PRO ---
Procedure Date: 04/27/24 Time: 09:09 Anesthesiologist:: Cathie Benjamin APRN Complications:: None Pre-procedure Diagnosis:: Degenerative disc disease of lumbar spine with lumbar radiculopathy symptoms, lumbar postlaminectomy syndrome, lumbar spondylosis, lumbar facet arthropathy, sacroiliitis Post-procedure Diagnosis:: Same Indications for Procedure:: Patient is a pleasant 78-year-old female who presents today for worsening pain. Patient does rate her pain a 8 out of 10. Patient denies any new trauma or injury. She does state that she has been experiencing worsening pain all throughout her low back and hips. She states it does even go into her groin and describes it as an aching sensation with pressure and does interfere with her ability to perform activities of daily living. Patient does state that overall she looks doing well with her pump and the recent lumbar epidural of L4-L5 on April 19 that did provide more than 50% relief however just the last week it is slowly increased in this other area. Patient does state that she is interested in injection therapy. Patient is currently managed with bupivacaine 10 mg/mL with a daily dose of 5.741 mg/day. She denies any side effects from this medication. She does state that every time she gets her pump refill she feels like it just aggravates her overall pain symptoms and makes it worse. Her Eric has been reviewed and is appropriate. Physical Exam: General: Alert and oriented x3, no acute distress, pleasant and cooperative Lungs: Respirations even and unlabored, symmetrical chest expansion Eyes: PERRL Musculoskeletal: Flexion and extension of lumbar [spine] somewhat guarded secondary to pain, [antalgic gait noted] point tenderness along bilateral SIs with positive bilateral Brian's, Sylvia's, Gaenslen's, compression and distraction exam Neurological: Speech clear, no gross sensory deficit Procedure Details:: Informed consent was obtained and the risk and benefits of the procedure were explained to the patient. Patient was taken to the procedure room where noninvasive monitoring was placed including noninvasive blood pressure cuff and pulse oximeter. Patient's pump was interrogated and was reprogrammed to bupivacaine 6.609 mg/day. The patient tolerated the procedure well with no complications. Plan and Disposition:: Patient tolerated her intrathecal increase in adjustment with no complications and was discharged neurologically intact. Patient did have point tenderness along her bilateral SIs with a positive bilateral Biran's, Sylvia's, Gaenslen's, compression and distraction exam. I did discuss with the patient that she may benefit from bilateral SI injections. Risk and benefits were discussed with the patient and she would like to proceed forward with this plan of care. Patient has tried oral medications along with heat and ice and topicals with minimal relief. Patient does try to be very active and exercise and stretches at home over the last 6 weeks with no changes. Patient is unable to tolerate current physical therapy due to her severe pulmonary history. We will schedule the patient for bilateral SI injections under fluoroscopy. Patient has been instructed to contact the clinic with any concerns before the next appointment. Dr. Hinojosa has reviewed this note and agrees with this plan of care. This note was dictated using voice recognition software and make contain errors or omissions. All injections are used with Lidocaine or Bupivacaine and Depo Medrol.
[2024-04-27 09:55] VITALS: BP 102/64; PULSE 70; RESP 16; O2SAT 98; BMI 27.1
== END 2024-04-27 23:59 | disposition home or self-care (01) ==
PROVIDERS: PCP Nurse Practitioner Family; Visit Provider Nurse Practitioner Family
DX: M96.1 Postlaminectomy syndrome, not elsewhere classified; M46.1 Sacroiliitis, not elsewhere classified; M51.36 Other intervertebral disc degeneration, lumbar region; M47.816 Spondylosis without myelopathy or radiculopathy, lumbar region
CPT/HCPCS: 62368; 99213; G0463

== ENCOUNTER 2024-05-03 09:19 | Day surgery (SDC) | payer MEDICARE, MEDICAID, SELFPAY ==
[2024-05-03 09:24] VITALS: BP 139/79; PULSE 80; RESP 16; TEMP 36.7; O2SAT 96; BMI 27.1
[2024-05-03] MEDS: methylPREDNISolone ACETATE 80MG/ML VIAL 80 MG (09:39)
[2024-05-03] MEDS: BUPIVACAINE 0.25% 10ML INJ 25 MG IJ (09:40)
[2024-05-03] MEDS: LIDOCAINE 1% 5ML PF VIAL 5 ML (09:40)
[2024-05-03 09:42] VITALS: BP 109/58; PULSE 80; RESP 16; O2SAT 96
--- NOTE | 2024-05-03 09:59 | P.PCN_ITS ---
Procedure Date: 05/03/24 Time: 09:50 Anesthesiologist:: Ian Zambrano CRNA Complications:: None Pre-procedure Diagnosis:: Bilateral sacroiliitis Post-procedure Diagnosis:: Same Indications for Procedure:: Patient is a pleasant 78-year-old female comes our clinic today for bilateral sacroiliac joint injections of cortisone and local anesthetic. Patient describes low lumbar back pain off the midline bilaterally as constant, dull, aching, sharp, stabbing. Patient reports having difficulty sitting and/or ambulating for any length of time. Upon examination she has extreme point tenderness over the bilateral sacroiliac joints. She rates her pain 9/10. Procedure Details:: Procedure: Bilateral sacroiliac joint injections under fluoroscopy Informed consent was obtained and the risks and benefits of the procedure were explained to the patient.~ The patient was taken to the procedure room and noninvasive monitors were placed including a noninvasive blood pressure cuff and pulse oximeter.~ The patient was placed prone on the procedure table. Both hips were cleansed using Betadine as a cleansing solution. C-arm fluoroscopy was used to view the right sacroiliac joint.~ The skin and subcutaneous tissues were anesthetized using lidocaine 1.5% and a 25-gauge needle.~ After this, a 22-gauge spinal needle was inserted under fluoroscopic guidance into the inferior aspect of the right sacroiliac joint.~ Omnipaque dye was injected and good spread was seen throughout the joint.~ After this, approximately 5 mL of bupivacaine, 0.25% and Depo-Medrol, 40 mg was incrementally injected into the right sacroiliac joint. We then moved to the left sacroiliac joint.~ The skin and subcutaneous tissues were anesthetized using lidocaine 1.5% and a 25-gauge needle.~ After this, a 22- gauge spinal needle was inserted under fluoroscopic guidance into the inferior aspect of the left sacroiliac joint.~ Omnipaque dye was injected and good spread was seen throughout the joint. After this, approximately 5 mL of bupivacaine, 0.25% and Depo-Medrol, 40 mg was incrementally injected into the left sacroiliac joint.~ The patient tolerated the procedure well with no complications. The patient was observed in the Pain Clinic and then was discharged home neurologically intact. Plan and Disposition:: Patient was discharged without incident.
== END 2024-05-03 09:42 | disposition home or self-care (01) ==
LOC: SC.PAINP 09:20
PROVIDERS: PCP Nurse Practitioner Family; Visit Provider Nurse Anesthetist, Certified Registered
DX: M46.1 Sacroiliitis, not elsewhere classified (principal)
CPT/HCPCS: 27096; G0260; J1010

== ENCOUNTER 2024-05-09 10:21 | Outpatient (POV) | payer MEDICARE, MEDICAID, SELFPAY ==
--- NOTE | 2024-05-09 11:17 | A.OFFVIS_ITS ---
[facility] Disclaimer: The information contained in this section may have been updated after the patient was seen, as this information can be updated by other users. Medical History (Updated 05/09/24 @ 11:18 by Cathie Benjamin APRN) Asthma COPD mixed type Pulmonary emphysema Encounter for screening for malignant neoplasm of lung Smoking greater than 30 pack years Oxygen dependent Nephrolithiasis History of left heart catheterization Smoker Hypothyroid Tobacco abuse COPD (chronic obstructive pulmonary disease) Nonspecific ST-T changes Tachycardia Diabetes HLD (hyperlipidemia) SOB (shortness of breath) Angina, class IV Surgical History History of surgical removal of skin lesion History of spinal surgery History of tonsillectomy History of colon surgery History of section History of bladder surgery Family History Other No significant family history Social History Smoking Status: Current every day smoker tobacco type: cigarettes packs per day: 1 second hand exposure: Yes alcohol intake: never counseling provided: provider counseling substance use type: denies use current occupational status: unemployed Travel in the last 8 weeks: None household members: children housing: house current occupational exposures/hazards: No caffeine: No PM Subjective & Objective Subjective Subjective:: Patient is a pleasant 78-year-old female who presents today for follow-up of bilateral SI injections on 05/11/2024. Today she rates her pain a 5 out of 10. Patient does state that she has had at least 75 to 80% improvement following these injections and feels like it is still helping. Patient states she has been able to move around easier with overall decreased pain. Patient does have a intrathecal pain pump with bupivacaine 10 mg/mL and a daily dose of 6.609 mg/day. She denies any side effects from this medication. She is scheduled for a intrathecal pump refill later today. Patient is an [facility] client. Her Eric has been reviewed and is appropriate. Review of Systems: General: No recent weight changes, no fever, no sleep disturbances Respiratory: No cough, no shortness of air, no recurring pulmonary infections Cardiovascular/peripheral vascular: No chest pain, no palpitations, no edema, no shortness of breath Gastrointestinal: No new onset incontinence, normal bowel movements reported Genitourinary: No new onset incontinence Musculoskeletal: Low back pain Psychiatric: [Normal mood/affect] Neurological: [Denies weakness in extremities], [denies balance issues] Pain at rest (0-10 scale): 5 Objective Objective:: Physical Exam: General: Alert and oriented x3, no acute distress, pleasant and cooperative Lungs: Respirations even and unlabored, symmetrical chest expansion Eyes: PERRL Musculoskeletal: Flexion and extension of lumbar [spine] somewhat guarded secondary to pain, [antalgic gait noted] Neurological: Speech clear, no gross sensory deficit Has patient had previous pain injection?: Yes Percent improvement in pain since last injection: 80% Conservative treatment options previously tried: Home exercise plan Length of treatment: Longer than 6 weeks Meds Home Medications and Allergies Home Medications ?Medication ?Instructions ?Recorded ?Confirmed ?Type gabapentin 300 mg capsule 900 mg PO HS neuropathy 10/06/17 05/03/24 History alprazolam 1 mg tablet 1 mg PO TIDP PRN Anxiety 08/24/18 05/03/24 History omeprazole 40 mg capsule,delayed 40 mg PO BID Reflux/Acid reflux 08/24/18 05/03/24 History release levalbuterol tartrate 45 2 puff inhalation Q4H Breathing 02/07/19 05/03/24 History mcg/actuation aerosol inhaler problems milnacipran 100 mg tablet 100 mg PO BID FIBROMYALGIA 02/07/19 05/03/24 History rosuvastatin 20 mg tablet 20 mg PO HS Cholesterol 02/08/19 05/03/24 History levocetirizine 5 mg tablet 5 mg PO HS Allergy symptoms 10/11/20 05/03/24 History levothyroxine 125 mcg tablet 125 mcg PO DAILY THYROID 12/18/20 05/03/24 History metformin 500 mg tablet,extended 500 mg PO DAILY Diabetes 12/18/20 05/03/24 History release 24 hr montelukast 10 mg tablet 10 mg PO HS Allergy symptoms 12/18/20 05/03/24 History sitagliptin phosphate 100 mg tablet 100 mg PO DAILY Diabetes 12/18/20 05/03/24 History aspirin 81 mg tablet,delayed 81 mg PO DAILY HEART HEALTH 04/11/21 05/03/24 History release ergocalciferol (vitamin D2) 1,250 50,000 units PO WEEKLY Supplement 02/20/22 05/03/24 History mcg (50,000 unit) capsule metoprolol succinate 50 mg 50 mg PO DAILY High blood pressure 03/31/22 05/03/24 History tablet,extended release 24 hr furosemide 40 mg tablet 40 mg PO DAILYP PRN Fluid 10/30/22 05/03/24 History potassium chloride 10 mEq 10 meq PO BID Supplement 01/22/23 05/03/24 History tablet,extended release levalbuterol HCl 0.63 mg/3 mL 0.63 mg inhalation . PRN . 09/23/23 05/03/24 History solution for nebulization linaclotide 72 mcg capsule 72 mcg PO DAILY PRN IBS 09/23/23 05/03/24 History (Linzess) duloxetine 30 mg capsule,delayed 30 mg PO BID 12/24/23 05/03/24 History release diclofenac sodium 1 % topical gel 2 g topical QID #100 grams 12/28/23 05/03/24 Rx oanrzuoh-lhlovhsofti-RfSc(PF) 5 20 ml continuous epidural CONT Pain 02/04/24 05/03/24 History mcg/mL-0.04 % injection pump reservoir albuterol sulfate 90 mcg/actuation 2 inh inhalation Q6H PRN shortness 02/16/24 05/03/24 Rx aerosol inhaler (Ventolin HFA) of breath or wheezing 90 days #18 grams budesonide-formoterol HFA 160 2 puff inhalation BID 90 days 02/16/24 05/03/24 Rx mcg-4.5 mcg/actuation aerosol #10.2 grams inhaler (Symbicort) baclofen 10 mg tablet 10 mg PO HS #14 tabs 02/17/24 05/03/24 Rx New Prescriptions to Start Prescriptions: Allergies Allergy/AdvReac Type Severity Reaction Status Date / Time aripiprazole [From ABILIFY] Allergy Unknown Unknown Verified 05/03/24 09:24 allergy reaction ciprofloxacin [CIPROFLOXACIN] Allergy Unknown Unknown Verified 05/03/24 09:24 allergy reaction phenazopyridine Allergy Unknown Unknown Verified 05/03/24 09:24 [PHENAZOPYRIDINE] allergy reaction Assessment and Plan *Assessment and plan (1) Low back pain: Status: Acute Category: Medical Code(s): M54.50 - Low back pain, unspecified Plan Patient has had significant improvement and does not require any additional injection therapy at this time. Patient was counseled that unfortunately the [facility] home refill program is having to stop and she will have to be refilled back in clinic. Patient is agreeable to this option and states she has no problems with this. I did agency legal counsel her that we will get the updated telemetry for her pump refill today from the [facility] nurse and will give her her next intrathecal refill in clinic following that. We will see the patient back in the clinic at the next intrathecal refill. Patient has been instructed to contact the clinic with any concerns before the next appointment. Dr. Hinojosa has reviewed this note and agrees with this plan of care. This note was dictated using voice recognition software and make contain errors or omissions. -- It Is medically necessary for this patient to continue to have their intrathecal pump refilled at regular intervals. This patient had an intrathecal pain pump implanted after meeting criteria of chronic intractable pain for greater than 3 months and failing conservative treatments. Patient has committed and been compliant to the treatment plan and all planned follow up care. Since implantation of the intrathecal pain pump, the patient has had decreased pain and been more functional. Oral medications have been reduced including intake of oral opioids. Patient continues to do well with intrathecal therapy with decrease in pain symptoms and increase in functional status. Stopping intrathecal medications can lead to life threatening withdrawal, seizures, cardiac arrest, severe pain, and possible . Pumps that are not refilled at regular intervals can be damages and cause and need for replacement. We continually titrate dose and concentration to optimize pain relief and function. We are limited in concentration for certain drugs to safely deliver medications through the pump and stay within the recommendations from the [employer] Guidelines. Depending on dose and concentration these pumps may need to be refilled sooner than 3 months as we titrate.
[2024-05-09 11:25] VITALS: BP 122/66; PULSE 97; RESP 18; O2SAT 94; BMI 28.8
== END 2024-05-09 23:59 | disposition home or self-care (01) ==
LOC: SC.PAIN 10:22
PROVIDERS: PCP Nurse Practitioner Family; Visit Provider Nurse Practitioner Family
DX: M54.50 Low back pain, unspecified (principal); F17.210 Nicotine dependence, cigarettes, uncomplicated; Z97.8 Presence of other specified devices; Z96.82 Presence of neurostimulator; Z79.899 Other long term (current) drug therapy
CPT/HCPCS: 99212; G0463

== ENCOUNTER 2024-05-30 14:25 | Outpatient (POV) | payer MEDICARE, MEDICAID, SELFPAY ==
--- NOTE | 2024-05-30 15:12 | P.PCN_ITS ---
Procedure Date: 05/30/24 Time: 15:12 Anesthesiologist:: Cathie Benjamin APRN Complications:: None Pre-procedure Diagnosis:: Degenerative disc disease of lumbar spine with lumbar radiculopathy symptoms Post-procedure Diagnosis:: Same Indications for Procedure:: Patient is a pleasant 78-year-old female who presents today for follow-up. Today she rates her pain a 10 out of 10. Patient states that overall she is having more pain in her knees and her tailbone area. Patient describes it as a constant sensation that is worse with increased activity. Patient states that she does have to go hip to hip while she is seated due to the pain. Patient is currently managed with bupivacaine 10 mg/mL with a daily dose of 6.609 mg/day. She denies any side effects from this medication. She does state that she feels like the medication just does not last as long and does have complaints today t hat she is having more trouble trying to get her bolus device to read the pump. Patient states that it always says it is searching and then cannot find it. Patient does states she forgot to bring her device with her today. She is prescribed gabapentin and alprazolam from an outside provider. Her Eric has been reviewed and is appropriate. Physical Exam: General: Alert and oriented x3, no acute distress, pleasant and cooperative Lungs: Respirations even and unlabored, symmetrical chest expansion Eyes: PERRL Musculoskeletal: Flexion and extension of lumbar [spine] somewhat guarded secondary to pain, [antalgic gait noted] Neurological: Speech clear, no gross sensory deficit Procedure Details:: Informed consent was obtained and the risk and benefits of the procedure were explained to the patient. Patient was taken to the procedure room where noninvasive monitoring was placed including noninvasive blood pressure cuff and pulse oximeter. Patient's pump was interrogated and was reprogrammed to bupivacaine 7.258 mg/day. The patient tolerated the procedure well with no complications. Plan and Disposition:: I did discuss with patient in future she may benefit from a caudal epidural. Risk and benefits were discussed with patient and we will follow-up with this in future. Patient tolerated her intrathecal increase with no complications and was discharged neurologically intact. Patient will return to clinic in 1 month for reevaluation of symptoms and plan of care. We will see the patient back in the clinic at the next intrathecal refill. Patient has been instructed to contact the clinic with any concerns before the next appointment. Dr. Hinojosa has reviewed this note and agrees with this plan of care. This note was dictated using voice recognition software and make contain errors or omissions. -- It Is medically necessary for this patient to continue to have their intrathecal pump refilled at regular intervals. This patient had an intrathecal pain pump implanted after meeting criteria of chronic intractable pain for greater than 3 months and failing conservative treatments. Patient has committed and been compliant to the treatment plan and all planned follow up care. Since implantation of the intrathecal pain pump, the patient has had decreased pain and been more functional. Oral medications have been reduced including intake of oral opioids. Patient continues to do well with intrathecal therapy with decrease in pain symptoms and increase in functional status. Stopping intrathecal medications can lead to life threatening withdrawal, seizures, cardiac arrest, severe pain, and possible . Pumps that are not refilled at regular intervals can be damages and cause and need for replacement. We continually titrate dose and concentration to optimize pain relief and function. We are limited in concentration for certain drugs to safely deliver medications through the pump and stay within the recommendations from the [employer] Consensus [employer] Guidelines. Depending on dose and concentration these pumps may need to be refilled sooner than 3 months as we titrate.
[2024-05-30 16:14] VITALS: BP 112/67; PULSE 109; RESP 16; O2SAT 95; BMI 27.1
== END 2024-05-30 23:59 | disposition home or self-care (01) ==
PROVIDERS: PCP Nurse Practitioner Family; Visit Provider Nurse Practitioner Family
DX: M51.16 Intervertebral disc disorders with radiculopathy, lumbar region (principal)
CPT/HCPCS: 62368; 99212; G0463

== ENCOUNTER 2024-05-31 12:49 | Outpatient (CLI) | payer MEDICARE, MEDICAID, SELFPAY ==
--- NOTE | 2024-05-31 12:55 | XR_ITS ---
FINAL REPORT CLINICAL HISTORY: left wrist fx COMPARISON: 02/16/2024 FINDINGS: Left wrist Three views were obtained. There is increased sclerosis in the distal radial metaphysis consistent with a healing fracture. The fracture is mildly impacted. There is ulnar positive variance measuring 4 mm. There are mild degenerative changes of the basilar joint. IMPRESSION: Fracture as above. Reviewed, Interpreted and Dictated by Herb Turner MD Transcribed by Lynn Knight Authenticated and [facility]
== END 2024-05-31 23:59 | disposition home or self-care (01) ==
LOC: RAD 12:50
PROVIDERS: PCP Nurse Practitioner Family; Visit Provider Nurse Practitioner Family
DX: S52.502A Unspecified fracture of the lower end of left radius, initial encounter for closed fracture (principal)
CPT/HCPCS: 73110

== ENCOUNTER 2024-09-30 13:17 | Outpatient (POV) | payer MEDICARE, MEDICAID, SELFPAY ==
[2024-09-30 13:41] VITALS: BP 106/70; PULSE 107; RESP 16; O2SAT 92; BMI 30.4
--- NOTE | 2024-09-30 13:56 | P.PCN_ITS ---
Procedure Date: 09/30/24 Time: 13:56 Anesthesiologist:: Cathie Benjamin APRN Complications:: None Pre-procedure Diagnosis:: Degenerative disc disease of lumbar spine, sacroiliitis, chronic pain syndrome Post-procedure Diagnosis:: Same Indications for Procedure:: Patient is a pleasant 78-year-old female who presents today for worsening pain. She rates her pain a 10 out of 10. She denies any new trauma or injury. She states that she feels like she is just having pain all across her low back and hips and feels like her pump is just aggravating the pain. She describes it as an aching, throbbing sensation with burning and tingling. She states that she cannot do anything due to this worsening pain and it is affecting her ability perform activities of daily living such as cooking and cleaning. Patient states the pain is constant and she is constantly having to change positions and feels like when she goes to stand up she is off balance due to the pain. Patient states that she just feels like the bupivacaine is not doing anything. She states that she had not discussed with us before but should have that she has been having more bowel and bladder incontinence and feels like this is related to the pump. Patient states at this point she would just like to have it explanted due to her worsening pain. Patient is managed with gabapentin and alprazolam from an outside provider. She currently has bupivacaine 10 mg/mL with a daily dose of 8.782 mg/day. Patient is interested in any help we may be able to provide. Her Eric has been reviewed and is appropriate. Physical Exam: General: Alert and oriented x3, no acute distress, pleasant and cooperative Lungs: Respirations even and unlabored, symmetrical chest expansion Eyes: PERRL Musculoskeletal: Flexion and extension of lumbar [spine] somewhat guarded secondary to pain, [antalgic gait noted] point tenderness along bilateral SIs with positive bilateral Brian's, Sylvia's, Gaenslen's, compression and distraction exam Neurological: Speech clear, no gross sensory deficit Procedure Details:: Informed consent was obtained and the risk and benefits of the procedure were explained to the patient. Patient did have noninvasive monitoring was placed including noninvasive blood pressure cuff and pulse oximeter. Patient's pump was interrogated and was reprogrammed to bupivacaine 9.665 mg/day. The patient tolerated the procedure well with no complications. Plan and Disposition:: Patient is experiencing significant pain throughout her low back and bilateral hips. Patient did have limited range of motion of her lumbar spine with extreme point tenderness along her bilateral SIs and a positive bilateral Brian's, Sylvia's, Gaenslen's, compression and distraction exam. I did discuss with the patient that I do believe she would benefit from bilateral SI injections. Risk and benefits were discussed with her and she states that she is open to any and all options. Patient did previously have SI injections back in April that did provide more than 80% relief and did last more than 3 months. Patient has had ongoing and chronic low back pain for longer than 3 months. I did discuss with her that we can proceed forward with submitting to have her pump explanted. Patient agrees with this. We will schedule the patient for bilateral SI injections under fluoroscopy as soon as possible. Due to her severity of pain I will send a 1 month supply of tramadol 50 mg twice daily. Risks and benefits of the medication have been explained in detail to the patient. The patient does understand the risk of dependence on the medication when given over a prolonged period. Patient has been advised of risks of oversedation with the prescribed medication. Narcan has been offered to the paitent in the event of o versedation. Patient has been advised that a family member should also be educated regarding administration of Narcan. The patient has been advised to consult with his/her primary care provider and pharmacist regarding drug-drug interaction of medications currently prescribed. Patient has been prescribed a controlled substance after being counseled on the medication, medication safety, and possible side effects. Opioid contract was reviewed and signed by the patient, and that they have agreed to all of the terms set forth by our compliance program. A UDS is needed to verify patient's compliance with our office pain contract. This is ordered based off specific treatments related to chronic pain with the potential to abuse certain medications. Patient has been instructed to contact the clinic with any concerns before the next appointment. Dr. Hinojosa has reviewed this note and agrees with this plan of care. This note was dictated using voice recognition software and make contain errors or omissions.
== END 2024-09-30 23:59 | disposition home or self-care (01) ==
PROVIDERS: PCP Nurse Practitioner Family; Visit Provider Nurse Practitioner Family
DX: M51.369 Other intervertebral disc degeneration, lumbar region without mention of lumbar back pain or lower extremity pain (principal); M46.1 Sacroiliitis, not elsewhere classified; G89.4 Chronic pain syndrome; Z73.89 Other problems related to life management difficulty
CPT/HCPCS: 62368; 99212; 99213; G0463

== ENCOUNTER 2024-10-12 13:10 | Outpatient (CLI) | payer MEDICARE, MEDICAID, SELFPAY ==
[2024-10-12 13:36] LABS: Basophils # 0.1 K/mm3 (0-0.2); Basophils % 0.9 % (0.1-2.0); Eosinophils # 0.3 K/mm3 (0.0-0.4); Eosinophils % 2.9 % (0.1-12.0); Hematocrit 44.7 % (37.0-47.0); Hemoglobin 13.7 g/dL (12.2-16.2); Lymphocytes # 4.8 K/mm3 (0.7-4.5); Lymphocytes % 40.9 % (10-50); Mean Corpuscular HGB Conc 30.6 g/dL (31.8-35.4); Mean Corpuscular Hemoglobin 31.2 pg (27.0-31.2); Mean Corpuscular Volume 101.8 fl (81-99); Mean Platelet Volume 9.6 fl (7.4-10.4); Monocytes # 0.8 K/mm3 (0.1-1.0); Monocytes % 7.1 % (1.7-9.3); Neutrophils # 5.6 K/mm3 (1.8-7.8); Neutrophils % 47.9 % (37.0-80.0); Platelet Count 304 K/mm3 (142-424); Red Blood Count 4.39 M/mm3 (4.20-5.40); Red Cell Distribution Width 12.1 % (11.5-17.5); White Blood Count 11.7 K/mm3 (4.8-10.8)
[2024-10-12 13:52] LABS: Hemoglobin A1C 6.5 % (4.0-6.0)
[2024-10-12 14:10] LABS: Alanine Aminotransferase 19 U/L (12-78); Albumin/Globulin Ratio 1.7 (1.1-1.8); Alkaline Phosphatase 52 U/L (38-126); Anion Gap 15.2 mEq/L (5-15); Aspartate Amino Transferase 27 U/L (14-36); Bilirubin,Total 0.3 mg/dl (0.2-1.3); Blood Urea Nitrogen 19 mg/dl (7-17); Calcium 9.6 mg/dl (8.4-10.2); Carbon Dioxide 30 mmol/L (22.0-30.0); Chloride 101 mmol/L (98-107); Chol/HDL Ratio 2.7 (1-3.5); Cholesterol 122 mg/dl (140-200); Estimated Glomerular Filt Rate 70 ml/min (>60); GFR (African American) 84 ML/MIN (>60); Globulin 2.4 g/dL (1.3-3.2); Glucose 112 mg/dl (74-100); HDL Cholesterol 46 mg/dl (40-60); Potassium 5.2 mmoL/L (3.5-5.1); Sodium 141 mmol/L (136-145); Total Protein,Serum 6.4 g/dl (6.3-8.2); Triglycerides 208 mg/dl (30-150); VLDL Cholesterol 42 mg/dL (0-40)
[2024-10-12 14:18] LABS: Microalbumin/Creatinine Ratio 63.9
[2024-10-12 14:21] LABS: Direct LDL Cholesterol 51.61 mg/dL (100-129)
[2024-10-12 14:26] LABS: 25-OH Vitamin D, Total 28.9 ng/mL (30-100)
[2024-10-12 14:29] LABS: Creatinine,Urine Random 98 mg/dL (Not Estab.)
[2024-10-12 14:39] LABS: Thyroid Stimulating Hormone 0.04 uIU/mL (0.465-4.68)
== END 2024-10-12 23:59 | disposition home or self-care (01) ==
LOC: LAB 13:11
PROVIDERS: PCP Nurse Practitioner Family; Visit Provider Nurse Practitioner Family
DX: E11.69 Type 2 diabetes mellitus with other specified complication (principal); E78.5 Hyperlipidemia, unspecified; J44.9 Chronic obstructive pulmonary disease, unspecified; M81.0 Age-related osteoporosis without current pathological fracture
CPT/HCPCS: 36415; 80053; 80061; 82043; 82306; 82570; 83036; 84443; 85025

== ENCOUNTER 2024-10-18 14:15 | Day surgery (SDC) | payer MEDICARE, MEDICAID, SELFPAY ==
[2024-10-18] MEDS: LIDOCAINE 1% 5ML PF VIAL 5 ML (15:00)
[2024-10-18 15:08] VITALS: BP 102/64; PULSE 108; RESP 16; TEMP 36.3; O2SAT 90; BMI 28.8
[2024-10-18 15:11] VITALS: BP 107/61; PULSE 110; RESP 18; O2SAT 97
[2024-10-18 15:12] VITALS: BP 107/61; PULSE 110; RESP 18; O2SAT 97
--- NOTE | 2024-10-18 15:17 | P.PCN_ITS ---
Procedure Date: 10/18/24 Time: 15:00 Anesthesiologist:: Ian Zambrano CRNA Complications:: None Pre-procedure Diagnosis:: Bilateral sacroiliitis Post-procedure Diagnosis:: Same Indications for Procedure:: Patient is a pleasant 78-year-old female who comes our clinic today for bilateral sacroiliac joint injections cortisone local anesthetic. Patient describes low lumbar back pain off the midline bilaterally. Bilateral posterior hip pain. Difficulty transitioning from sitting to standing. Patient spends a lot of time in a wheelchair. She is having difficulty transitioning from the wheelchair to to the car. This is due to the low lumbar back pain. She rates her pain 9/10. Procedure Details:: Procedure: Bilateral sacroiliac joint injections under fluoroscopy Informed consent was obtained and the risks and benefits of the procedure were explained to the patient.~ The patient was taken to the procedure room and noninvasive monitors were placed including a noninvasive blood pressure cuff and pulse oximeter.~ The patient was placed prone on the procedure table. Both hips were cleansed using Betadine as a cleansing solution. C-arm fluoroscopy was used to view the right sacroiliac joint.~ The skin and subcutaneous tissues were anesthetized using lidocaine 1.5% and a 25-gauge needle.~ After this, a 22-gauge spinal needle was inserted under fluoroscopic guidance into the inferior aspect of the right sacroiliac joint.~ Omnipaque dye was injected and good spread was seen throughout the joint.~ After this, approximately 5 mL of bupivacaine, 0.25% and Depo-Medrol, 40 mg was incrementally injected into the right sacroiliac joint. We then moved to the left sacroiliac joint.~ The skin and subcutaneous tissues were anesthetized using lidocaine 1.5% and a 25-gauge needle.~ After this, a 22- gauge spinal needle was inserted under fluoroscopic guidance into the inferior aspect of the left sacroiliac joint.~ Omnipaque dye was injected and good spread was seen throughout the joint. After this, approximately 5 mL of bupivacaine, 0.25% and Depo-Medrol, 40 mg was incrementally injected into the left sacroiliac joint.~ The patient tolerated the procedure well with no complications. The patient was observed in the Pain Clinic and then was discharged home neurologically intact. Plan and Disposition:: Patient was discharged without incident.
[2024-10-18 15:25] VITALS: BP 106/65; PULSE 106; RESP 16; O2SAT 90
== END 2024-10-18 15:25 | disposition home or self-care (01) ==
PROVIDERS: PCP Nurse Practitioner Family; Visit Provider Nurse Anesthetist, Certified Registered
DX: M46.1 Sacroiliitis, not elsewhere classified (principal)
CPT/HCPCS: 27096; G0260; J1010

== ENCOUNTER 2024-11-18 13:29 | Outpatient (POV) | payer MEDICARE, MEDICAID, SELFPAY ==
[2024-11-18 13:53] VITALS: BP 123/68; RESP 14; O2SAT 90; BMI 30.4
--- NOTE | 2024-11-18 13:56 | P.PCN_ITS ---
Procedure Date: 11/18/24 Time: 13:57 Anesthesiologist:: Cathie Benjamin APRN Complications:: None Pre-procedure Diagnosis:: Degenerative disc disease of lumbar spine with lumbar radiculopathy symptoms, sacroiliitis, chronic pain syndrome Post-procedure Diagnosis:: Same Indications for Procedure:: Patient is a pleasant 79-year-old female who presents today for follow-up of bilateral SI injections on 10/18/2023. Today she rates that pain into her hips at 100% relief. She does state however that her back pain is a 10 out of 10 and it is radiating down past her knees. She states that she has a lot of difficulty even walking and feels like her legs are getting give out randomly. She states the pain is interfering with her ability perform activities of daily living such as cooking and cleaning patient denies any recent falls. She does state just even coming into our office today had a couple moments that she felt a little bit more unstable. Patient does state that she still is interested in having her pump explanted. Patient is currently managed with bupivacaine 10 mg/mL with a daily dose of 8.782 mg/day. Patient is also prescribed gabapentin and alprazolam from an outside provider. Patient was prescribed tramadol from our office in the past. Her Eric has been reviewed and is appropriate. Physical Exam: General: Alert and oriented x3, no acute distress, pleasant and cooperative Lungs: Respirations even and unlabored, symmetrical chest expansion Eyes: PERRL Musculoskeletal: Flexion and extension of lumbar [spine] somewhat guarded secondary to pain, [antalgic gait noted] positive leg raise Neurological: Speech clear, no gross sensory deficit Procedure Details:: Informed consent was obtained and the risk and benefits of the procedure were explained to the patient. Patient did have noninvasive monitoring was placed including noninvasive blood pressure cuff and pulse oximeter. Patient's pump was interrogated and was reprogrammed to bupivacaine 7.258 mg/day. The patient tolerated the procedure well with no complications. Plan and Disposition:: I did discuss at length with the patient regarding her complaints regarding her bupivacaine pump. Patient was agreeable to decreasing her pump down to see if it makes any difference in her pain symptoms as well as if it makes any changes to some of her urinary issues she feels like may be related to the pump. Patient was counseled that we still are tentatively putting her on the operating room schedule to have her pump removed unless she tells me otherwise. Patient was counseled that we will reach out to [facility] home refill nurse and let them know that we are decreasing her down today and that she may be getting a phone call next week to have the pump increase back up if Ms. Callahan decides otherwise. Nicholas kaur agrees with this plan of care. She did tolerate her intrathecal decrease with no complications and was discharged neurologically intact. I did discuss at length with the patient that with her low back pain with radiating numbness and tingling into her lower extremities that she may benefit from a lumbar epidural steroid injection. Risk and benefits were discussed with the patient and she would like to proceed forward with this plan of care. Patient has tried and failed conservative therapy including continued at home stretching exercise for longer than 12 weeks with no additional changes. Patient at our last visit had been sent in some tramadol however she states that she really did not notice any additional changes. I did discuss with her that I will send in a dose of Tylenol 3 daily however I would like her to hold off taking this medication until after the weekend so she can truly see whether or not her pump is more beneficial than she realizes and if any of her other symptoms improve or worsen. We will follow-up with her at upcoming visits. Patient will be scheduled for an LESI L5-S1 under fluoroscopy. Patient had her last lumbar epidural in April 2024 at this level and had approximately 50% relief following that injection. Patient has been instructed to contact the clinic with any concerns before the next appointment. Dr. Hinojosa has reviewed this note and agrees with this plan of care. This note was dictated using voice recognition software and make contain errors or omissions. -- It Is medically necessary for this patient to continue to have their intrathecal pump refilled at regular intervals. This patient had an intrathecal pain pump implanted after meeting criteria of chronic intractable pain for greater than 3 months and failing conservative treatments. Patient has committed and been compliant to the treatment plan and all planned follow up care. Since implantation of the intrathecal pain pump, the patient has had decreased pain and been more functional. Oral medications have been reduced including intake of oral opioids. Patient continues to do well with intrathecal therapy with decrease in pain symptoms and increase in functional status. Stopping intrathecal medications can lead to life threatening withdrawal, seizures, cardiac arrest, severe pain, and possible . Pumps that are not refilled at regular intervals can be damages and cause and need for replacement. We continually titrate dose and concentration to optimize pain relief and function. We are limited in concentration for certain drugs to safely deliver medications through the pump and stay within the recommendations from the [employer] Guidelines. Depending on dose and concentration these pumps may need to be refilled sooner than 3 months as we titrate. A UDS is needed to verify patient's compliance with our office pain contract. This is ordered based off specific treatments related to chronic pain with the potential to abuse certain medications.
== END 2024-11-18 23:59 | disposition home or self-care (01) ==
PROVIDERS: PCP Nurse Practitioner Family; Visit Provider Nurse Practitioner Family
DX: M51.16 Intervertebral disc disorders with radiculopathy, lumbar region (principal); M46.1 Sacroiliitis, not elsewhere classified; G89.4 Chronic pain syndrome; Z73.89 Other problems related to life management difficulty
CPT/HCPCS: 62368; 99212; 99213; G0463

== ENCOUNTER 2025-01-13 12:04 | Outpatient (CLI) | payer MEDICARE, MEDICAID, SELFPAY ==
[2025-01-13 12:19] VITALS: BMI 32.1
--- NOTE | 2025-01-13 12:36 | ECG_ITS ---
APPROVED REPORT Exam: Resting ECG HR:45 bpm ECG Measurements Heart Rate 45 AXES AZ 155 P 69 QRSd 65 QRS 17 QT 368 T 62 QTc 321 Conclusion SINUS BRADYCARDIA WITH OCCASIONAL SUPRAVENTRICULAR PREMATURE COMPLEXES LOW QRS VOLTAGE IN PRECORDIAL LEADS WITH LATE R WAVE PROGRESSION BORDERLINE ECG UNCONFIRMED REPORT Electronically signed by : Delvin Newton MD 01/15/2025 08:04:58
[2025-01-13 12:54] LABS: Basophils # 0.1 K/mm3 (0-0.2); Basophils % 0.6 % (0.1-2.0); Eosinophils # 0.3 Kmm3 (0.0-0.4); Eosinophils % 2.8 % (0.1-12.0); Hematocrit 46.8 % (37.0-47.0); Hemoglobin 14.3 g/dL (12.2-16.2); Lymphocytes # 3.5 K/mm3 (0.7-4.5); Lymphocytes % 35.5 % (10-50); Mean Corpuscular HGB Conc 30.6 g/dL (31.8-35.4); Mean Corpuscular Hemoglobin 30.5 pg (27.0-31.2); Mean Corpuscular Volume 99.8 fl (81-99); Mean Platelet Volume 9.7 fl (7.4-10.4); Monocytes # 0.8 K/mm3 (0.1-1.0); Monocytes % 8.2 % (1.7-9.3); Neutrophils # 5.2 K/mm3 (1.8-7.8); Neutrophils % 52.7 % (37.0-80.0); Nucleated Red Blood Cells # 0 10^3/uL; Nucleated Red Blood Cells % 0 %; Platelet Count 276 K/mm3 (142-424); Red Blood Count 4.69 M/mm3 (4.20-5.40); Red Cell Distribution Width 12.9 % (11.5-17.5); Red Cell Distribution Width-SD 47.5 fL; White Blood Count 9.8 K/mm3 (4.8-10.8)
[2025-01-13 13:11] LABS: Anion Gap 8.5 mEq/L (5-15); Blood Urea Nitrogen 14 mg/dl (7-17); Carbon Dioxide 32 mmol/L (22.0-30.0); Chloride 103 mmol/L (98-107); Creatinine Clearance Estimated 64 mL/min (50-200); Estimated Glomerular Filt Rate 81 ml/min (>60); GFR (African American) 98 ML/MIN (>60); Glucose 132 mg/dl (74-100); Potassium 4.5 mmoL/L (3.5-5.1); Sodium 139 mmol/L (136-145)
== END 2025-01-13 23:59 | disposition home or self-care (01) ==
LOC: PREOP 12:06
PROVIDERS: PCP Nurse Practitioner Family; Visit Provider Anesthesiology
DX: Z01.810 Encounter for preprocedural cardiovascular examination (principal); Z01.812 Encounter for preprocedural laboratory examination; I49.1 Atrial premature depolarization; R00.1 Bradycardia, unspecified; R94.31 Abnormal electrocardiogram [ECG] [EKG]
CPT/HCPCS: 80048; 85025; 93005

== ENCOUNTER 2025-01-19 08:11 | Outpatient (CLI) | payer MEDICARE, MEDICAID, SELFPAY ==
--- NOTE | 2025-01-19 08:21 | US_ITS ---
FINAL REPORT CLINICAL HISTORY: current smoker, previous SVEN 02/24/20 (RT SVEN=1.1 LT SVEN=1.1), hyperlipidemia, left foot and toe discoloration that worsened with laying flat. FINDINGS: Ankle-brachial indices were obtained. The right SVEN is 1.0. The left SVEN is 1.0. IMPRESSION: ABIs within normal limits bilaterally. Reviewed, Interpreted and Dictated by Jacinda Giles MD Transcribed by Lynn Knight Authenticated and [facility]
--- NOTE | 2025-01-19 08:39 | CT_ITS ---
FINAL REPORT TECHNIQUE: Thin section axial images were obtained through the lungs using a low-dose technique per lung cancer screening protocol. Reconstruction images were obtained using the axial data. Exam was performed using dose reduction technique. This study was performed with techniques to keep radiation doses as low as reasonably achievable (ALARA). Individualized dose reduction techniques using automated exposure control or adjustment of mA and/or kV according to the patient's size were employed. CLINICAL HISTORY: lung cancer screening smoker 1 ppd x 55 yrs COMPARISON: CT of the chest 04/28/2023 FINDINGS: CTDLvol: 2.90 DLP: 106.81 Current smoker 55 pack year history Lungs: New left lower lobe discoid atelectasis is present, which was not present on the prior CT of 04/28/2023. Mild changes of emphysema are noted. No suspicious nodules. Lymph nodes: No axillary or hilar adenopathy is noted. Small mediastinal nodes are identified, stable. Mediastinum: Heart size is normal. Pleura/pericardium: No pleural or pericardial effusion. Other: No acute abnormality in the upper abdomen. IMPRESSION: No suspicious pulmonary nodule or mass. Lung RADS: 1 Recommendation: 12-month follow-up LDCT Reviewed, Interpreted and Dictated by Jacinda Giles MD Transcribed by Sapna Giron Authenticated and [facility]
--- NOTE | 2025-01-19 08:41 | XR_ITS ---
FINAL REPORT TECHNIQUE: Bone densitometry calculations of the lumbar spine and left hip were obtained. CLINICAL HISTORY: SCREENING COMPARISON: 09/19/2023 FINDINGS: Using L1-4, the bone mineral density of the spine is 0.884 g/cm2, corresponding to T-score of -1.5 and a Z score of 1.1. This is within the range of osteopenia. Previously, this was 0.789 with a T-score of-2.3 and a Z-score of 0.2. Using the left hip, the bone mineral density of the femoral neck is 0.543 g/cm2, corresponding to a T-score of -2.8 and a Z-score of -0.5. This is within the range of osteoporosis. Previously this was 0.566 with a T-score of-2.6 and a Z-score of -0.4. FRAX not reported because some T-score at or below-2.5; patient being treated for osteoporosis NOTE: T-score: Standard deviation compared with peak bone mass of young adult mean. *Following the recommendations of the International Society of Bone densitometry, classification of hip BMD is based on the lower of two T-scores; total hip or femoral neck. IMPRESSION: 1. Bone mineral density of the lumbar spine within the range of osteopenia. 2. Bone mineral density of the left femoral neck within the range of osteoporosis. Reviewed, Interpreted and Dictated by Jacinda Giles MD Transcribed by Shalonda Jameson Authenticated and [facility]
--- NOTE | 2025-01-19 09:04 | MM_ITS ---
PROCEDURE INFORMATION: Exam: MG Bilateral Screening 3D Mammography Exam date and time: 01/19/2025 9:37 AM Age: 79 years old Clinical indication: Screening mammogram TECHNIQUE: Imaging protocol: Bilateral Screening tomosynthesis and 2D mammography including computer-aided detection (CAD) when performed. COMPARISON: 1. MG MM DIG SCREENING MAMM BI W/CAD 09/18/2023 8:41 AM 2. MG SCBI MM Dig screening mamm BI w/CAD 06/11/2018 10:17 AM 3. MG DMSB DIG MAMM-SCREEN WILMER W/CAD 02/02/2017 10:51 AM 4. MG MM MAMMO DIGITAL SCREENING W CAD BILAT 02/13/2014 3:30 PM FINDINGS: MAMMOGRAPHY: Breast composition: The breasts are almost entirely fatty. Mass: None. Architectural distortion: No new or suspicious architectural distortion. Calcifications: No new or suspicious calcifications are present Asymmetric density: No new or suspicious asymmetric density is present Skin thickening: None. Axillary adenopathy: None. IMPRESSION: No mammographic evidence of malignancy. Recommend annual screening mammography unless otherwise clinically indicated. ASSESSMENT: BI-RADS category 1: Negative.
== END 2025-01-19 23:59 | disposition home or self-care (01) ==
PROVIDERS: PCP Nurse Practitioner Family; Visit Provider Nurse Practitioner Family
DX: Z12.31 Encounter for screening mammogram for malignant neoplasm of breast (principal); M81.0 Age-related osteoporosis without current pathological fracture; M85.88 Other specified disorders of bone density and structure, other site; R92.313 Mammographic fatty tissue density, bilateral breasts; F17.210 Nicotine dependence, cigarettes, uncomplicated; L53.9 Erythematous condition, unspecified; Z12.2 Encounter for screening for malignant neoplasm of respiratory organs; Z78.0 Asymptomatic menopausal state
CPT/HCPCS: 71271; 77063; 77067; 77080; 93923

== ENCOUNTER 2025-01-30 13:00 | Outpatient (CLI) | payer MEDICARE, MEDICAID, SELFPAY ==
--- NOTE | 2025-01-30 13:00 | CA_ITS ---
FINAL REPORT TECHNIQUE: Ultrasound images of the deep venous system were obtained from the left groin to the calf veins. CLINICAL HISTORY: EDEMA X 4 YEARS,PT ON ASA FINDINGS: The deep venous system is normally compressible. Normal flow is identified. IMPRESSION: No evidence of left lower extremity DVT. Reviewed, Interpreted and Dictated by Herb Turner MD Transcribed by Yvonne Sadler Authenticated and [facility]
== END 2025-01-30 23:59 | disposition home or self-care (01) ==
LOC: RT 13:01
PROVIDERS: PCP Nurse Practitioner Family; Visit Provider Nurse Practitioner
DX: Z01.810 Encounter for preprocedural cardiovascular examination (principal); I10 Essential (primary) hypertension; E78.5 Hyperlipidemia, unspecified; R60.9 Edema, unspecified
CPT/HCPCS: 93971

== ENCOUNTER 2025-02-15 11:38 | Outpatient (CLI) | payer MEDICARE, MEDICAID, SELFPAY ==
--- NOTE | 2025-02-15 11:00 | CA_ITS ---
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: WESLEY Smith, RVS Ht: 5 ft 5 in Wt: 197lbs BSA: 1.97 BP: 125/73 mmHg Indications: Pre-op assessment for painpump removal, Dyspnea, Smoker, COPD, HTN, HLD Echo Enhancing Agent Indication: No IV access Comments: Poor acoustic windows throughout ecam due to body habitus and lung impedance 2D Dimensions IVSd 0.78 cm LVEF (Visual) 74.30 % PWd 0.99 cm LVEF (Charles's) 55.70 % LVDd 4.75 cm LV Volume 70.70 mL LVDs 2.70 cm LA Volume 66.00 mL Aortic Root 2.87 cm LA Volume Index 33.50 mL/m2 (M/F) 16-34 Left Atrium 3.04 cm EF AP4 58.30 % RVID Base (AP4) 3.23 cm (M/F) 2.5-4.1 EF AP2 51.6 % LVOT 1.85 cm (M/F) 1.5-2.5 EF BP 55.7 % GL Strain -17.0 % M-Mode Dimensions LVDd 4.75 cm (3.5-5.7) Ao Diam 3.13 cm (2.0-3.7) LVDs 2.70 cm (3.5-5.7) IVSd 0.78 cm (0.6-1.1) PWd 0.99 cm (0.6-1.1) EPSs 0.28 cm FS 43.20% TAPSE 1.64 (<1.7) LV Diastology E Decel Time 125 (160-240 msec) E/A Ratio 0.70 MED E' 4.7 (>= 7 cm/sec) MED A' 9.70 cm/s E'/MED E' Ratio 11.30 (<= 14) LAT E' 8.4 (>= 10 cm/sec) LAT A' 9.80 cm/s E/LAT E' Ratio 6.32 (<= 14) Aortic Valve LVOT Max 85.0 (70-110 cm/s) ANTONIO Index 1.09 cm2/m2 LVOT VTI 19.68 cm AoV Peak Manny. 137.0 (50-130 cm/s) AO Mean GR. 3.80 (<5 mmHg) AO VTI 24.7 (18-25 cm) ANTONIO (VTI) 2.14 (2.5-4.5 cm2) Mitral Valve MV E Max Manny. 53.0 (40-130 cm/s) MV A Velocity 76.0 (40-130 cm/s) E/A Ratio 0.70 MV Decel. Time 125 (160-240 ms) MV Mean Gr. 1.00 (<2mmHg) Tricuspid Valve TR P. Velocity 168.00 cm/s RAP Estimate 10.00 mmHg RVSP 21.30 mmHg Left Ventricle The left ventricle is normal size. The left ventricular systolic function is normal. The left ventricular ejection fraction is within the normal range. There is increased overall thickness. There is normal LV segmental wall motion. The left ventricular diastolic function is normal. LVEF is 55%. Right Ventricle The right ventricle is mildly dilated. The right ventricular systolic function is normal. Atria The left atrium is mildly dilated. Right atrium is mildly dilated. There is no Doppler evidence of interatrial shunt. Aortic Valve Aortic valve is mildly thickened. There is no aortic valvular stenosis. Trace aortic regurgitation. Mitral Valve The mitral valve is normal in structure. No evidence of mitral valve stenosis. Trace mitral regurgitation. Tricuspid Valve Tricuspid valve is grossly normal in structure and function. Trace tricuspid regurgitation. There is insufficient TR jet to estimate RVSP. Pulmonic Valve The pulmonary valve is normal in structure. Trace pulmonic regurgitation. Great Vessels The aortic root is normal in size. IVC is normal in size and collapses >50% with inspiration. Pericardium There is no pericardial effusion. Other Information Study Quality: Technically Difficult Conclusion Technically difficult study due to poor acoustic windows. Normal biventricular systolic function. Mild RV dilation. Mild biatrial dilation. No significant valvular stenosis or regurgitation. Electronically signed by : Fiorella Stevenson MD 02/22/2025 23:40:18
== END 2025-02-15 23:59 | disposition home or self-care (01) ==
LOC: RT 11:39
PROVIDERS: PCP Nurse Practitioner Family; Visit Provider Nurse Practitioner
DX: Z01.810 Encounter for preprocedural cardiovascular examination (principal); I11.9 Hypertensive heart disease without heart failure; E78.5 Hyperlipidemia, unspecified; J44.9 Chronic obstructive pulmonary disease, unspecified; F17.200 Nicotine dependence, unspecified, uncomplicated
CPT/HCPCS: 93306

== ENCOUNTER 2025-03-01 15:48 | Emergency (ER) | payer MEDICARE, MEDICAID, SELFPAY ==
--- OUTSIDE RECORDS SUMMARY | 2025-01-09 08:15 | XMS_ITS ---
Author Organization [facility] Address [address] [place] [address] Care Team Providers Care Flagsetter Name Role Phone AshleyClaire Primary Care Provider Delvin Newton Unavailable Unavailable Allergies Allergen (clinical drug ingredient) Drug/Non Drug Allergy documented on EMR Reaction Allergy Type Onset Date Status ARIPIPRAZOLE ANALOGU ES (uncoded) itching Allergy Active aripiprazole Abilify itching Drug Allergy Acti ve aripiprazole ARIPiprazole itching Drug Allergy A ctive Results Component Value Reference Range Notes BASIC METABOLIC PANEL (14573 ) Reviewed date:01/12/2025 03:27:05 PM Interpretation: Performing Lab:[facility], [facility] [id number] [facility], [facility] [id number] David Calles Notes/Report: NON-FASTING; NON-FASTING; NON-FASTING GLUCOSE 124 65-99 mg/dL Fasting reference interval For someone without known diabetes, a glucose value between 100 and 125 mg/dL is consistent with prediabetes and should be confirmed with a follow-up test. UREA NITROGEN (BUN) 15 7-25 mg/dL CREATININE 0.83 0.60-1.00 mg/dL EGFR 72 > OR = 60 mL/min/1.73m2 BUN/CREATININE RATIO SEE NOTE: 6-22 (calc) Not Reported: BUN and Creatinine are within reference range. SODIUM 143 135-146 mmol/L POTASSIUM 4.5 3.5-5.3 mmol/L CHLORIDE 99 98-110 mmol/L CARBON DIOXIDE 33 20-32 mmol/L CALCIUM 9.6 8.6-10.4 mg/dL HEMOGLOBIN A1c (496) Reviewed date:01/12/2025 03:27:05 PM Interpretation: Performing Lab:[facility] [id number] [facility], [facility] [id number] David Calles Notes/Report: NON-FASTING; NON-FASTING; NON-FASTING HEMOGLOBIN A1c 7.0 <5.7 % For someone without known diabetes, a hemoglobin A1c value of 6.5% or greater indicates that they may have diabetes and this should be confirmed with a follow-up test. For someone with known diabetes, a value <7% indicates that their diabetes is well controlled and a value greater than or equal to 7% indicates suboptimal control. A1c targets should be individualized based on duration of diabetes, age, comorbid conditions, and other considerations. Currently, no consensus exists regarding use of hemoglobin A1c for diagnosis of diabetes for children. TSH W/REFLEX TO FT4 (30890) Reviewed date:01/12/2025 03:27:05 PM Interpretation: Performing Lab:[id number], [facility] [id number] David Calles Notes/Report: NON-FASTING; NON-FASTING; NON-FASTING TSH W/REFLEX TO FT4 1.05 0.40-4.50 mIU/L CULTURE, URINE, ROUTINE (395 ) Reviewed date:01/12/2025 03:27:05 PM Interpretation: Performing Lab:[facility] [id number] [facility], [facility] [id number] David Calles Notes/Report: NON-FASTING; NON-FASTING; NON-FASTING CULTURE, URINE, ROUTINE SEE NOTE CULTURE, URINE, ROUTINE Micro Number: [id number] Test Status: Final Specimen Source: Urine, clean catch Specimen Quality: Adequate Result: 10,000-49,000 CFU/mL of Escherichia coli COMMENT: Additional non-predominating organism(s) isolated. These organisms, commonly found on external and internal genitalia, are considered colonizers. No further testing performed. E.coli INT BERENICE AMOX/CLAVULANATE S 4 AMP/SULBACTAM I 16 CEFAZOLIN R 16 1 CEFEPIME S <=0.12 CEFTAZIDIME S <=1 CEFTRIAXONE S <=0.25 CIPROFLOXACIN S <=0.06 GENTAMICIN S <=1 IMIPENEM S <=0.25 LEVOFLOXACIN S <=0.12 MEROPENEM S <=0.25 NITROFURANTOIN S <=16 PIP/TAZOBACTAM S <=4 TRIMETHOPRIM/SULFA S <=20 S = Susceptible I = Intermediate R = Resistant NS = Not susceptible SDD = Susceptible Dose Dependent * = Not Tested NR = Not Reported NN = See Therapy Comments THERAPY COMMENTS Note 1: For uncomplicated UTI caused by E. coli, K. pneumoniae or P. mirabilis: Cefazolin is susceptible if BERENICE <32 mcg/mL and predicts susceptible to the oral agents cefaclor, cefdinir, cefpodoxime, cefprozil, cefuroxime, cephalexin and loracarbef. REASON FOR VISIT 3 month follow up-fasting, still having some urinary frequency but not able to void at the moment Medications Medication SIG (Take, Route, Frequency, Duration) Notes Start Date End Date Status metFORMIN HCl ER 500 MG TAKE ONE TABLET BY MOUTH TWICE DAILY for 90 Active Levalbuterol HCl 0.63 MG/3ML 3 mL by nebulizer every 6 hours as needed for shortness of breath for 30 days Active Promethazine-DM 6.25-15 MG/5ML 5 mL orally every 6 hours as needed for cough for 7 days 11/10/2024 Active Gabapentin 300 MG 2 caps orally once a day at bedtime for 90 days 10/31/2024 Active Montelukast Sodium 10 MG 1 tab(s) orally once a day for 90 days Active Furosemide 40 MG 1 tab(s) orally 2 times a day for 30 days Active Omeprazole 40 MG 1 cap(s) orally twice daily for 30 days Active Levothyroxine Sodium 100 MCG 1 tab(s) orally once a day for 30 days 10/14/2024 Active Trelegy Ellipta 100 MCG-62.5 MCG-25 MCG/INH 1 PUFF(S) INHALED ONCE A DAY for 30 DAYS *Please review and pick correct strength-formulati on from DotGT options. If intended option is not shown, discontinue and re-order from Quick Search* 08/24/2023 Active Vitamin D (Ergocalciferol) 1.25 MG (08045 UT) 1 cap(s) orally once a week for 30 day(s) Active POTASSIUM CHLORIDE (KQN-MJPX-CTI 10) 10 MEQ TAKE ONE TABLET BY MOUTH THREE TIMES A WEEK for 84 *Please review for potential replacement for e-prescription and drug interaction check* Active PORTABLE OXYGEN (OXYLITE) DX: COPD *Please review for potential replacement for e-prescription and drug interaction check* 03/18/2023 Active Alendronate Sodium 70 MG 1 tab(s) orally once a week Active Aspirin 81 MG 1 tab(s) orally once a day for 30 day(s) Active Acetaminophen-Codeine 300-30 MG 1 tablet as needed Orally twice a day Active linaCLOtide 72 MCG 1 cap(s) orally once a day Active Januvia ( PHOSPHATE) 100 MG 1 TAB(S) ORALLY ONCE A DAY *Please review and pick correct strength-formulati on from DotGT options. If intended option is not shown, discontinue and re-order from Quick Search* Active BUPIVACAINE HYDROCHLORIDE 0.25% DIRECTED 10mg/mL w daily dose of 8.782mg/day via pain pump *Please review for potential replacement for e-prescription and drug interaction check* Active MILNACIPRAN 100 MG 1 TAB(S) ORALLY 2 TIMES A DAY *Please review for potential replacement for e-prescription and drug interaction check* Active Metoprolol Succinate ER 50 MG TAKE ONE TABLET BY MOUTH EVERY DAY for 30 days Active Levocetirizine Dihydrochloride 5 MG 1 tab(s) orally once a day (in the evening) for 90 days Active ALPRAZolam 1 MG 1 tab(s) orally 3 times a day as needed for anxiety for 30 days 12/26/2024 Active Rosuvastatin Calcium 20 MG 1 tab(s) orally once a day for 90 days Active Levalbuterol HCl 45 MCG/INH 2 PUFF(S) INHALED EVERY 4 HOURS NEEDED FOR COPD for 30 DAYS *Please review and pick correct strength-formulati on from Mithridionan options. If intended option is not shown, discontinue and re-order from Quick Search* Active DULoxetine HCl 30 MG 1 cap(s) orally 2 times a day for 90 days Active Social History Tobacco Use: Social History Observation Description Date Details (start date - stop date) Current Smoker NA - NA Smoking: Question Answer Notes Are you a: current smoker How often do you smoke cigarettes? every day How many cigarettes a day do you smoke? 6-10 How soon after you wake up d o you smoke your first cigarette? 31-60 min Are you interested in quitting? Ready to quit Additional Findings: Tobacco User Light cigarett e smoker ((1-9 cigs/day) Section Notes: vapes Vital Signs Temperature 96.3 degrees Fahrenheit 01/10/20 25 Heart Rate 96 /min 01/09/2025 Blood pressure systolic 110 mm Hg 01/10/20 25 Blood pressure diastolic 76 mm Hg 025 Height 5 ft 5 in in 01/09/2025 Weight 193.8 lbs 01/09/2025 BMI 32.25 kg/m2 01/09/2025 Encounters Encounter Location Date Provider Diagnosis [facility] [address] [facility] [address] [facility] [place] [address] 01/09/2025 Claire Ramirez Psychophysiologic insomnia F51.04 ; Other chronic pain G89.29 ; Type 2 diabetes mellitus with other specified complication E11.69 ; Chronic major depressive disorder F32.9 ; Essential hypertension I10 ; Advanced COPD J44.9 ; Hypothyroidism, unspecified E03.9 and Dysuria R30.0 Assessments Encounter Date Diagnosis (ICD Code) Assessment Notes Treatment Notes Treatment Clinical Notes Section Notes 01/09/2025 Psychophysiologic insomnia (ICD-10 - F51.04) multifactoral and already on many sedating medications 01/09/2025 Other chronic pain (ICD-10 - G89.29) 01/09/2025 Type 2 diabetes mellitus with other specified complication (ICD-10 - E11.69) Continue current therapy, update labs. Continue statin therapy. Low-normal BP, hold ACEI/ARB for now. 01/09/2025 Chronic major depressive disorder (ICD-10 - F32.9) stable on current regimen 01/09/2025 Essential hypertension (ICD-10 - I10) history of HTN but low normal today, monitor 01/09/2025 Advanced COPD (ICD-1 0 - J44.9) continue Trelegy 01/09/2025 Hypothyroidism, unspecified (ICD-10 - E03.9) 01/09/2025 Dysuria (ICD-10 - R30.0) Plan Of Treatment Treatment Notes Assessment Notes Type 2 diabetes mellitus wit h other specified complication Continue current therapy, update labs. Continue statin therapy. Low-normal BP, hold ACEI/ARB for now. Next Appt Details Follow Up: 3 Months, Reason: Progress Notes * Ayaan HAINESB: 7 (79 yo F)Acc No.[id number]:01/09/2025 Progress Notes Patient: Sindy SWARTZ Provider: SLAVA Grimaldo :1945 A ge:79 Y S ex:Female Date:01/09/2025 Address:[address] [place] [address], [place], [id number] Subjective: * Chief Complaints: * 1 . 3 month follow up-fasting. 2. Still having some urinary frequency but not able to void at the moment. * HPI: g en: Pt here for 3-month f/u. Synthyroid adjusted in September, pt tolerating new dose. At last visit, UTI treated with nitrofurantoin, states she is still having frequency and painful urination. Denies fever, blood in urine, or flank pain. Continues to have 10/10 back pain, scheduled to have pain pump removal January 20. Checks blood sugar at home 2x week: unsure of the average. No wounds, ulcers on feet, checks feet at home. Continues to use oxygen at qhs, but states she has insomnia, goes to bed at 4am, sleeps 4-5 hours, no bedtime routine established. Repeat sleep study 2023 showed no longer needed cpap. Discoloration of feet is unchanged, SVEN scheduled first week of January. SVEN apt first week of January. * ROS: R ESPIRATORY: no S hortness of breath. n o C hest pain. ? C ARDIOLOGY: no L eg edema. C ONSTITUTIONAL: no L oss of appetite. n o F ever. F atigue yes, a t baseline. M USCULOSKELETAL: back pain y es. N EUROLOGY: Insomnia yes. U ROLOGY: See HPI Y es. n o B lood in urine. F requent urination yes. * Medical History: H TN, COPD/Asthma, Hyperlipidemia, Diabetes, Arthritis, Anxiety, Chronic hypoxic respiratory failure on supplemental O2, Urinary incontinence, ALCIDES on CPAP, BCC removed from right leg. * Surgical History: t onsillectomy 195, x 2 , Partial hysterectomy , Total hysterectomy , Bladder surgery x 5 , Colonoscopy , pain pump 08/2022. * Hospitalization/Major Diagno stic Procedure: a ll above surgeries , rectal bleeding 2020, kidney stone 2021, UTI, VIral Infection & COPD 2022. * Family History: F ather: . M other: . P aternal Grand Father: . P aternal Grand Mother: . M aternal Grand Father: . M aternal Grand Mother: . Paternal uncle: . P aternal aunt: . M aternal uncle: . M aternal aunt: alive. S jimmy: alive, sister-colon cancer, diagnosed with Cancer. Josr woods: alive, daughter-thyroid cancer, heart disease, diagnosed with Cancer, Heart Disease. 1 brother(s) , 1 sister(s) . 5 daughter(s) . . * Social History: S moking A re you a: c urrent smoker, H ow often do you smoke cigarettes? e very day, H ow many cigarettes a day do you smoke? 6 -10, H ow soon after you wake up do you smoke your first cigarette? 3 1-60 min, A re you interested in quitting? R briana to quit, A dditional Findings: Tobacco User L ight cigarette smoker ((1-9 cigs/day). R ecreational drug use: no. Exercise: no. Home smoke detector use: yes. Caffeine: yes, frequency:coffee. Living Will: No. Alcohol: no. Sexually active: no. Travel outside [place]: no. Occupation: Retired. vapes. * Medications: T aking Acetaminophen-Codeine 300-30 MG Tablet 1 tablet as needed Orally twice a day , Taking BUPIVACAINE HYDROCHLORIDE 0.25% SOLUTION DIRECTED , Notes to Pharmacist: 10mg/mL w daily dose of 8.782mg/day via pain pump *Please review for potential replacement for e-prescription and drug interaction check*, Taking MILNACIPRAN 100 MG TABLET 1 TAB(S) ORALLY 2 TIMES A DAY , Notes to Pharmacist: *Please review for potential replacement for e-prescription and drug interaction check*, Taking linaCLOtide 72 MCG Capsule 1 cap(s) orally once a day , Taking Januvia ( PHOSPHATE) 100 MG TABLET 1 TAB(S) ORALLY ONCE A DAY , Notes to Pharmacist: *Please review and pick correct strength-formulation from Mithridionan options. If intended option is not shown, discontinue and re-order from Quick Search*, Taking Alendronate Sodium 70 MG Tablet 1 tab(s) orally once a week , Taking Aspirin 81 MG Tablet Delayed Release 1 tab(s) orally once a day , Taking PORTABLE OXYGEN (OXYLITE) DX: COPD , Notes to Pharmacist: *Please review for potential replacement for e-prescription and drug interaction check*, Taking Vitamin D (Ergocalciferol) 1.25 MG (63394 UT) Capsule 1 cap(s) orally once a week , Taking POTASSIUM CHLORIDE (ZTX-RLGG-LTC 10) 10 MEQ TABLET, EXTENDED RELEASE TAKE ONE TABLET BY MOUTH THREE TIMES A WEEK , Notes to Pharmacist: *Please review for potential replacement for e-prescription and drug interaction check*, Taking Furosemide 40 MG Tablet 1 tab(s) orally 2 times a day , Taking Omeprazole 40 MG Capsule Delayed Release 1 cap(s) orally twice daily , Taking Trelegy Ellipta 100 MCG-62.5 MCG-25 MCG/INH POWDER 1 PUFF(S) INHALED ONCE A DAY , Notes to Pharmacist: *Please review and pick correct strength-formulation from DotGT options. If intended option is not shown, discontinue and re-order from Quick Search*, Taking Levothyroxine Sodium 100 MCG Tablet 1 tab(s) orally once a day , Taking Montelukast Sodium 10 MG Tablet 1 tab(s) orally once a day , Taking Gabapentin 300 MG Capsule 2 caps orally once a day at bedtime , Taking Levalbuterol HCl 0.63 MG/3ML Nebulization Solution 3 mL by nebulizer every 6 hours as needed for shortness of breath , Taking Promethazine-DM 6.25-15 MG/5ML Syrup 5 mL orally every 6 hours as needed for cough , Taking metFORMIN HCl ER 500 MG Tablet Extended Release 24 Hour TAKE ONE TABLET BY MOUTH TWICE DAILY , Taking DULoxetine HCl 30 MG Capsule Delayed Release Particles 1 cap(s) orally 2 times a day , Taking Levalbuterol HCl 45 MCG/INH AEROSOL 2 PUFF(S) INHALED EVERY 4 HOURS NEEDED FOR COPD , Notes to Pharmacist: *Please review and pick correct strength-formulation from Mithridionan options. If intended option is not shown, discontinue and re-order from Quick Search*, Taking Metoprolol Succinate ER 50 MG Tablet Extended Release 24 Hour TAKE ONE TABLET BY MOUTH EVERY DAY , Taking ALPRAZolam 1 MG Tablet 1 tab(s) orally 3 times a day as needed for anxiety , Taking Rosuvastatin Calcium 20 MG Tablet 1 tab(s) orally once a day , Taking Levocetirizine Dihydrochloride 5 MG Tablet 1 tab(s) orally once a day (in the evening) , Discontinued Arexvy PRESERVATIVE-FREE 120 MCG POWDER FOR INJECTION 0.5 ML INTRAMUSCULARLY ONCE , Notes to Pharmacist: *Please review and pick correct strength-formulation from Mithridionan options. If intended option is not shown, discontinue and re-order from Quick Search*, Discontinued Nitrofurantoin Monohyd Macro 100 MG Capsule 1 capsule with food Orally every 12 hrs , Medication List reviewed and reconciled with the patient * Allergies: A RIPiprazole: itching, Abilify: itching, ARIPIPRAZOLE ANALOGUES: itching. Objective: * Vitals: N urse: jl, Pain: 10-back, Temp: 96.3, RR: 20, HR: 96, BP: 110/76, Ht: 5 ft 5 in, Wt: 193.8, BMI:32.25. * Examination: G eneral Examination: General P leasant and Cooperative, NAD on RA,. Heart: R egular Rate and Rhythm, no murmur, rubs or gallops. Lungs: c lear to auscultation,. Abdomen: s oft, NT/ND, BS present, no CVA tenderness,. Extremities: f eet are warm with palpable pulses but diminished, rubor of the toes noted only on the left and a/w mild edema in the toes and foot. Psych N ormal Mood/Affect. Assessment: * Assessment: 1. P sychophysiologic insomnia - F51.04 (Primary) 2 . O ther chronic pain - G89.29 3 . T ype 2 diabetes mellitus with other specified complication - E11.69? 4. C hronic major depressive disorder - F32.9 5 . E ssential hypertension - I10 6 . A dvanced COPD - J44.9 7 . H ypothyroidism, unspecified - E03.9 8 . D ysuria - R30.0 Plan: * Treatment: 2. T ype 2 diabetes mellitus with other specified complication L AB: BASIC METABOLIC PANEL (22944) (Collection Date & Time - 01/09/2025 01:01 PM) Value Reference Range G LUCOSE 124 H 65-99 - mg/dL * U ROSE MARIE NITROGEN (BUN) 15 7-25 - mg/dL * C REATININE 0.83 0.60-1.00 - mg/dL * B UN/CREATININE RATIO SEE NOTE: 03-05 - (calc) * S ODIUM 143 135-146 - mmol/L * P OTASSIUM 4.5 3.5-5.3 - mmol/L * C HLORIDE 99 98-110 - mmol/L * C ARBON DIOXIDE 33 H 20-32 - mmol/L * C ALCIUM 9.6 8.6-10.4 - mg/dL * E GFR 72 > OR = 60 - mL/min/1 .73m2 * Soo Zamorano 01/12/2025 03: 24:37 PM EDT > pt informed-Rx sent ?LAB: HEMOGLOBIN A1c (496) (Collection Date & Time - 01/09/2025 01:01 PM)* Value Reference Range H EMOGLOBIN A1c 7.0 H <5.7 - % * Soo Zamorano 01/12/2025 03: 24:37 PM EDT > pt informed-Rx sent ?LAB: TSH W/REFLEX TO FT4 (47750) (Collection Date & Time - 01/09/2025 01:01 PM)* Value Reference Range T SH W/REFLEX TO FT4 1.05 0.40-4.50 - mIU/L * Soo Zamorano 01/12/2025 03: 24:37 PM EDT > pt informed-Rx sent Notes: Continue current therapy, update labs. Continue statin therapy. Low- normal BP, hold ACEI/ARBfor now.??3.?Chronic major depressive disorder? Clinical Notes: stable on current regimen??4.?Essential hypertension? Clinical Notes: history of HTN but low normal today, monitor??5.?Advanced COPD? Clinical Notes: continue Trelegy??6.?Hypothyroidism, unspecified?LAB: BASIC METABOLIC PANEL (82772) (Collection Date & Time - 01/09/2025 01:01 PM)* Value Reference Range G LUCOSE 124 H 65-99 - mg/dL * U ROSE MARIE NITROGEN (BUN) 15 7-25 - mg/dL * C REATININE 0.83 0.60-1.00 - mg/dL * B UN/CREATININE RATIO SEE NOTE: 03-05 - (calc) * S ODIUM 143 135-146 - mmol/L * P OTASSIUM 4.5 3.5-5.3 - mmol/L * C HLORIDE 99 98-110 - mmol/L * C ARBON DIOXIDE 33 H 20-32 - mmol/L * C ALCIUM 9.6 8.6-10.4 - mg/dL * E GFR 72 > OR = 60 - mL/min/1 .73m2 * Soo Zamorano 01/12/2025 03: 24:37 PM EDT > pt informed-Rx sent ?LAB: HEMOGLOBIN A1c (496) (Collection Date & Time - 01/09/2025 01:01 PM)* Value Reference Range H EMOGLOBIN A1c 7.0 H <5.7 - % * Soo Zamorano 01/12/2025 03: 24:37 PM EDT > pt informed-Rx sent ?LAB: TSH W/REFLEX TO FT4 (75622) (Collection Date & Time - 01/09/2025 01:01 PM)* Value Reference Range T SH W/REFLEX TO FT4 1.05 0.40-4.50 - mIU/L * Soo Zamorano 01/12/2025 03: 24:37 PM EDT > pt informed-Rx sent * Labs: * L ab: CULTURE, URINE, ROUTINE (395) (Collection Date & Time - 01/09/2025 01:01 PM) Value Reference Range C ULTURE SEE NOTE A - * eclinicalworks, support 12/14 07:25:15 : This order was created by the Interface. Soo Zamorano 01/12/2025 03:24:37 PM EDT > pt informed-Rx sent * Follow Up: 3 Months * * Sign off status: Completed true * Provider: SLAVA Grimaldo Date: 01/09/2025 Generated for Honey aquino/Francisco/Gary on: 0 03/01/2025 04:54 PM EDT History and Physical Notes * Examination Category Sub-Category Detail Notes Category Not es General Examination Heart: Regular Rate and Rhythm, no murmur, rubs or gallops Lungs: clear to auscultatio n, Abdomen: soft, NT/ND, BS pres ent, no CVA tenderness, Extremities: feet are warm with p alpable pulses but diminished, rubor of the toes noted only on the left and a/w mild edema in the toes and foot General Pleasant and Coopera tive, NAD on RA, Psych Normal Mood/Affect
[2025-03-01 15:43] VITALS: BP 109/54; PULSE 100; RESP 18; TEMP 36.1; O2SAT 91; BMI 31.2
--- NOTE | 2025-03-01 16:02 | XR_ITS ---
PROCEDURE INFORMATION: Exam: XR Chest Exam date and time: 03/01/2025 4:49 PM Age: 79 years old Clinical indication: Injury or trauma; Fall; Blunt trauma (contusions or hematomas) TECHNIQUE: Imaging protocol: Radiologic exam of the chest. Views: 1 view. COMPARISON: CT LUNG SCREENING 01/19/2025 10:17 AM FINDINGS: Lungs: Lung volumes are moderately diminished. Minimal bibasilar increased markings likely reflect vascular crowding from diminished lung volumes. The lungs appear otherwise clear given diminished lung volumes. No focal areas of consolidation. Pleural spaces: No pleural effusions. Negative for pneumothorax. Heart/Mediastinum: Cardiac silhouette and pulmonary vasculature are within range of normal. Bones/joints: There is no evidence of acute fracture. Soft tissues: Study quality is limited due to the patient's head and chin obscuring visualization of the superomedial upper lobes. IMPRESSION: 1. Study quality limited due to the patient's head and chin obscuring visualization of the superomedial upper lobes. 2. Lung volumes moderately diminished. 3. Minimal bibasilar increased markings likely reflect vascular crowding from diminished lung volumes.
--- NOTE | 2025-03-01 16:03 | XR_ITS ---
PROCEDURE INFORMATION: Exam: XR Right Knee Exam date and time: 03/01/2025 4:46 PM Age: 79 years old Clinical indication: Injury or trauma; Fall; Blunt trauma; Knee; Right; Additional info: Fall, knee pain and swelling TECHNIQUE: Imaging protocol: Radiologic exam of the right knee. Views: 3 views. COMPARISON: US ARTERIAL LOWER EXT REST 01/19/2025 8:23 AM FINDINGS: Bones/joints: There is no evidence of acute fracture or dislocation. There is a small popcorn type area sclerosis involving the distal femur likely reflecting benign enchondroma or bone infarct. Soft tissues: There is prepatellar soft tissue prominence suggesting soft tissue edema/contusion/inflammation/cellulitis. Correlate clinically. There is mild periarticular soft tissue stranding likely reflecting edema. No subcutaneous emphysema or radiopaque foreign bodies. No significant suprapatellar joint effusion. IMPRESSION: No acute posttraumatic osseous injury. Prepatellar soft tissue prominence suggesting soft tissue edema/contusion/inflammation/cellulitis. Correlate clinically. Mild periarticular soft tissue stranding likely reflecting edema.
--- NOTE | 2025-03-01 16:04 | XR_ITS ---
PROCEDURE INFORMATION: Exam: XR Left Forearm Exam date and time: 03/01/2025 4:27 PM Age: 79 years old Clinical indication: Pain; Wrist; Left; Additional info: Fall, lt wrist pain TECHNIQUE: Imaging protocol: Radiologic exam of the left forearm. Views: 2 views. COMPARISON: CR XR FOREARM LT 2V 12/20/2023 7:03 PM FINDINGS: Bones/joints: There is a small ossific density adjacent to the proximal medial aspect of the 5th metacarpal which may reflect a small acute avulsion fracture, not seen on prior study of 05/31/2024. Mild osteoarthritic degenerative changes involving the 1st carpometacarpal joint. There is also a vertical oblique linear lucency involving the proximal metadiaphysis of the 3rd metacarpal only seen on the oblique projection suspicious for subtle fracture. Soft tissues: There is mild soft tissue edema involving the wrist. No subcutaneous emphysema or radiopaque foreign bodies. No definite elbow joint effusion. IMPRESSION: 1. Small ossific density adjacent to the proximal medial aspect of the 5th metacarpal suggesting small acute avulsion fracture, not seen on prior study of 05/31/2024. 2. Vertical oblique linear lucency involving the proximal metadiaphysis of the 3rd metacarpal only seen on the oblique projection suspicious for subtle fracture. 3. Additional findings within the wrist are more optimally describing in the associated radiograph of the wrist and hand from the same date and time. Please reference the report for additional information.
--- NOTE | 2025-03-01 16:05 | XR_ITS ---
PROCEDURE INFORMATION: Exam: XR Left Wrist Exam date and time: 03/01/2025 4:26 PM Age: 79 years old Clinical indication: Pain; Wrist; Left; Additional info: Fall, lt wrist pain, HX of previous FX TECHNIQUE: Imaging protocol: Radiologic exam of the left wrist. Views: 3 or more views. COMPARISON: CR XR WRIST LT MIN 3V 05/31/2024 1:02 PM FINDINGS: Bones/joints: There is a small ossific density adjacent to the proximal medial aspect of the 5th metacarpal which may reflect a small acute avulsion fracture, not seen on prior study of 05/31/2024. Mild osteoarthritic degenerative changes involving the 1st carpometacarpal joint. There is also a vertical oblique linear lucency involving the proximal metadiaphysis of the 3rd metacarpal only seen on the oblique projection suspicious for subtle fracture. Otherwise, there is no evidence of acute fracture or dislocation. Joint spaces appear preserved. Soft tissues: No significant soft tissue edema. No subcutaneous emphysema or radiopaque foreign bodies. IMPRESSION: 1. Small ossific density adjacent to the proximal medial aspect of the 5th metacarpal may reflect a small acute avulsion fracture, not seen on prior study of 05/31/2024. Correlate clinically and with focal physical examination. 2. Vertical oblique linear lucency involving the proximal metadiaphysis of the 3rd metacarpal only seen on the oblique projection suspicious for subtle fracture.
--- NOTE | 2025-03-01 16:05 | XR_ITS ---
PROCEDURE INFORMATION: Exam: XR Left Hand Exam date and time: 03/01/2025 4:24 PM Age: 79 years old Clinical indication: Pain; Wrist; Left; Additional info: Fall, lt wrist pain TECHNIQUE: Imaging protocol: Radiologic exam of the left hand. Views: 1 or 2 views. COMPARISON: CR XR HAND LT MIN 3V 12/20/2023 6:59 PM FINDINGS: Bones/joints: There is a small ossific density adjacent to the proximal medial aspect of the 5th metacarpal which may reflect a small acute avulsion fracture, not seen on prior study of 05/31/2024. There is also cortical contour irregularity and lucency involving the 5th proximal metadiaphysis suggestive of subtle nondisplaced fracture. There is also suggestion of subtle cortical contour irregularity involving the proximal metadiaphysis of the 4th metacarpal suggestive of acute fracture. Previously described vertical oblique linear lucency involving the proximal metadiaphysis of the 3rd metacarpal only seen on the oblique projection suspicious for subtle fracture is again noted. Mild osteoarthritic degenerative changes involving the 1st carpometacarpal joint and scaphoid trapezium/trapezoid articulation. Soft tissues: There is soft tissue edema involving the wrist. No subcutaneous emphysema or radiopaque foreign bodies. IMPRESSION: 1. Small ossific density adjacent to the proximal medial aspect of the 5th metacarpal suggestive of acute avulsion fracture and cortical contour irregularity involving the proximal metadiaphysis worrisome for acute nondisplaced fracture. 2. Vertical oblique linear lucency involving the proximal metadiaphysis of the 3rd metacarpal only seen on the oblique projection consistent with subtle nondisplaced fracture. 3. Subtle cortical contour irregularity involving the proximal metadiaphysis of the 4th metacarpal may reflect additional acute fracture. Consider CT evaluation for confirmation of the above described findings.
--- OUTSIDE RECORDS SUMMARY | 2025-03-01 16:53 | XMS_ITS | Encounter Summary ---
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 Name Role Phone Unavailable Primary Care Provider Unavailabl e Encounter Details Date Type Department Care Team (Late st Contact Info) Description 04/15/2021 Transcribed Document [facility] [place] [facility] Family Medicine Formerly [facility] [place] [address] ProviderPantera MD [address] [place] [id number] Social History Tobacco Use Types Packs/Day Years Used Date Smoking Tobacco: Never Assessed Comments Unknown Sex and Gender Information Value Date Recorded Sex Assigned at Not on file Legal Sex Female 7:22 PM CDT Gender Identity Not on file Sexual Orientation Not on file documented as of this encounter Miscellaneous Notes * Cerner Conversion Note - Pantera Tineo MD - 04/15/2021 10:27 AM CDT Patient: SINDY LEMA Age: 75 Years Sex: Female : 1945 Reason for Consultation GI bleed, positive occult History of Present Illness Ms Lema is a 75 y/o female with an extensive past medical history including , COPD, T2DM, heart failure, HTN, HLD, PE, Fibromyalgia, and GERD. She was transferred from [facility] for GI evaluation due to positive stool guaiac. She reports she has had diarrhea for 1 week, with lower abdominal cramping as well as some vomiting. She states she was also experiencing some dizziness. She was initially evaluated [facility], admitted over night for observation and released the next day. She reports her vomiting subsided but continued to have diarrhea and was then evaluated at [facility]. She was found to have TENA, and positive for occult blood in her stool. patient denies hx of GI bleed. Reports no blood in her BM and Hgb is stable at 12. She was found to have a WBC of 15.8. No stool studies were obtained prior to transfer. She reports her last colonoscopy was approximately 8 years ago, and suffered from a perforation which resulted in 5 colon surgeries. She states she takes ASA daily. Denies use of alcohol. She denies sick contacts and no recent travel. Reports her sister was dx with colon CA at the age of 75. Father of colon CA but she cannot recall his age at that time. Patient reports she feels somewhat better today and denies abdominal pain at this time. Review of Systems A complete Review of systems was performed, all other systems were reviewed and are negative except as stated within the HPI. Vital Signs T: 36.6 ??C TMIN: 36.5 ??C TMAX: 36.6 ??C HR: 111(Monitored) RR: 18 BP: 97/55 SpO2: 93% HT: 165.1 cm WT: 88.18 kg Oxygen Settings (Last) Oxygen Therapy Mode: Nasal cannula (04/15/21 08:00:00) Oxygen Flow Rate: 2 Liter/Min (04/15/21 08:00:00) Physical Exam General: Alert and oriented, well nourished, no acute distress. Neurologic: Awake, alert, and oriented X3, CN II-XII intact. Eye: PERRL, EOMI, normal conjunctiva, no scleral icterus HENT: Normocephalic, normal hearing, moist oral mucosa. Neck: Supple, non-tender, no lymphadenopathy. Lungs: Clear to auscultation, non-labored respiration. Heart: Normal rate, regular rhythm, no murmur, or edema. Abdomen: Soft, non-tender, non-distended, normal bowel sounds, no masses.No high pitched or tinkling sounds. No guarding or rebound. Rectal tube in place. Musculoskeletal: Normal range of motion and strength, no joint tenderness or swelling. Skin: Skin is warm, dry and pink, no rashes or lesions. Psychiatric: Cooperative, appropriate mood and affect. Assessment/Plan GI bleed/positive occult Plan for EGD/Colon today due to patient continued diarrhea, no prep is needed. Continue to monitor h/h and transfuse as needed. Pt. agreeable to EGD/Colonoscopy today. Risks vs benefits discussed, such as bleeding, perforation, infection, reaction to anaesthesia, missed lesion, complication requiring additional surgery or procedures, failure to be able to complete procedure. Pt will have additional opportunity to discuss this with the ordering/performing physician and have additional questions asked/answered prior to the procedure. H&P above was performed by Ritu Dillon PA-C and discussed with Dr. Rincon. INikhil, have personally interviewed the patient, reviewed the chart, performed the physical exam and formulated the treatment plan(04/15). Thank you for this consultation! Orders: Verify Patient Consent Obtained Verify Patient Consent Obtained VTE Prophylaxis - Medical Sequential Compression Device Start: 04/15/21 0:13:00 EDT, Bilateral, Length: Knee High, While patient is in bed, Continuous Order (RODRIGO BASURTO) Provider Information Primary Care Physician - SIMON, NOT LISTED Attending Physician - RODRIGO BASURTO DO-INT Admitting Physician - RODRIGO BASURTO DO-INT Consulting Physician - NIKHIL RINCON MD Referring Physician - SIMON, NOT LISTED Problem List/Past Medical History Ongoing Anxiety Arthritis Back pain Bipolar 1 disorder Cataract COPD (chronic obstructive pulmonary disease) Diabetes mellitus type II Esophageal stricture Fibromyalgia GERD - Gastro-esophageal reflux disease Heart failure Hyperlipidemia Hypertension Insomnia Major depression Metabolic encephalopathy Migraine Migraine Mixed incontinence Oxygen dependent PTSD (post-traumatic stress disorder) Pulmonary embolism Renal calculus Sleep apnea Thyroid disease Tobacco use Vitamin B 12 deficiency Vitamin D deficiency Historical No qualifying data Procedure/Surgical History c- section X 2, cataracts extraction bilateral with IOL, colon surgery 2 more times, colon surgery for perforated bowel, complete hysterectomy, kidney stone extraction, left knee meniscus tear, multiple bladder surgeries, partial hysterectomy, tonsillectomy. Medications Inpatient Dulcolax Laxative, 5 mg= 1 Tab, Oral, Daily, PRN DuoNeb 0.5 mg-2.5 mg/3 mL inhalation solution, 3 mL, Nebulized Inhalation , RT_Q6H, PRN gabapentin, 900 mg= 3 Cap, Oral, At Bedtime Habitrol 14 mg/24 hr transdermal film, extended release, 1 Patch, TransDermal, Daily melatonin, 3 mg= 1 Tab, Oral, At Bedtime, PRN morphine, 1 mg= 0.5 mL, IV Push, Q4H, PRN Normal Saline Flush, 10 mL, IV Push, Q12H Normal Saline Flush, 10 mL, IV Push, See Comment, PRN Pepcid, 20 mg= 1 Tab, Oral, Q12H Roxicodone, 5 mg= 1 Tab, Oral, Q4H, PRN Sodium Chloride 0.9% intravenous solution 1,000 mL, 1000 mL, IntraVENous Tylenol, 650 mg= 2 Tab, Oral, Q4H, PRN Xanax, 1 mg= 2 Tab, Oral, TID, PRN Zofran, 4 mg= 2 mL, IV Push, Q4H, PRN Home alendronate, 70 mg, Oral, Weekly ALPRAZolam 1 mg oral tablet, 1 mg= 1 Tab, Oral, TID, PRN amitriptyline 25 mg oral tablet, 25 mg= 1 Tab, Oral, At Bedtime Aspirin Low Dose 81 mg oral delayed release tablet, 81 mg= 1 Tab, Oral, Daily bisoprolol 10 mg oral tablet, 10 mg= 1 Tab, Oral, At Bedtime diclofenac sodium 75 mg oral delayed release tablet, 75 mg= 1 Tab, Oral, BID With Meals furosemide 40 mg oral tablet, 40 mg= 1 Tab, Oral, Daily gabapentin 300 mg oral capsule, 300 mg= 1 Cap, Oral, At Bedtime Januvia 100 mg oral tablet, 100 mg= 1 Tab, Oral, Daily levalbuterol 0.63 mg/3 mL inhalation solution, 0.63 mg= 3 mL, Nebulized Inhalation , TID, PRN levocetirizine 5 mg oral tablet, 5 mg= 1 Tab, Oral, QPM levothyroxine 125 mcg (0.125 mg) oral tablet, 125 mcg= 1 Tab, Oral, Daily lisinopril 2.5 mg oral tablet, 2.5 mg= 1 Tab, Oral, Daily MetFORMIN (Eqv-Glucophage XR) 500 mg oral tablet, extended release, 500 mg= 1 Tab, Oral, BID With Meals montelukast 10 mg oral tablet, 10 mg= 1 Tab, Oral, QPM Myrbetriq 50 mg oral tablet, extended release, 50 mg= 1 Tab, Oral, Daily omeprazole 40 mg oral delayed release capsule, 40 mg= 1 Cap, Oral, BID ondansetron 4 mg oral tablet, 4 mg= 1 Tab, Oral, TID, PRN Qnasl 80 mcg/inh nasal spray, 2 Dal[place], Nasal, Daily, PRN rosuvastatin 20 mg oral tablet, 20 mg= 1 Tab, Oral, At Bedtime Savella 100 mg oral tablet, 100 mg= 1 Tab, Oral, BID Spiriva Respimat 60 ACT 2.5 mcg/inh inhalation aerosol, 2 Puff, Inhalation, Daily Symbicort 160 mcg-4.5 mcg/inh inhalation aerosol, 2 Puff, Inhalation, BID Allergies Abilify Cipro (Swelling, Swelling) Pyridium Social History Tobacco Smoking Status Current every day smoker. Five or more cigarettes per day Smoking Frequency Within Last 30 Days. Use in Last 12 Months: Cigarettes. Years of Use: 50. Packs/Tins Daily: 1. Second Hand Smoke Exposure: No. Yes Smokeless Tobacco Use in Last 30 Days. Family History Sister- Colon CA 75 Father- Colon CA Lab Results Test Name Test Result Date/Time Sodium Level 142 mmol/L 04/15/2021 00:49 EDT Potassium Level 3.9 mmol/L 04/15/2021 00:49 EDT Chloride Level 108 mmol/L 04/15/2021 00:49 EDT Carbon Dioxide Level 28 mmol/L 04/15/2021 00:49 EDT Anion Gap 10 04/15/2021 00:49 EDT Glucose Level 125 mg/dL (High) 04/15/2021 00:49 EDT Blood Urea Nitrogen 30 mg/dL (High) 04/15/2021 00:49 EDT Creatinine Level 1.60 mg/dL (High) 04/15/2021 00:49 EDT eGFR 38 mL/min/1.73m2 (Low) 04/15/2021 00:49 EDT eGFR NonAfrican 32 mL/min/1.73m2 (Low) 04/15/2021 00:49 EDT Bun/Creatinine 18.8 04/15/2021 00:49 EDT Calcium Level 8.0 mg/dL (Low) 04/15/2021 00:49 EDT Protein Total 6.8 Gram/dL 04/15/2021 00:49 EDT Albumin Level 3.1 Gram/dL (Low) 04/15/2021 00:49 EDT Globulin 3.7 Gram/dL 04/15/2021 00:49 EDT A/G Ratio 0.8 (Low) 04/15/2021 00:49 EDT Bilirubin Total 0.3 mg/dL 04/15/2021 00:49 EDT Alk Phos 72 Units/Liter 04/15/2021 00:49 EDT AST 33 Units/Liter 04/15/2021 00:49 EDT ALT 28 Units/Liter 04/15/2021 00:49 EDT Magnesium Level 2.2 mg/dL 04/15/2021 00:49 EDT Device Comment 1 Protocols Followed 04/15/2021 06:49 EDT Glucose POC2 101 mg/dL 04/15/2021 06:49 EDT WBC 15.8 K/uL (High) 04/15/2021 00:49 EDT RBC 4.67 Million/uL 04/15/2021 00:49 EDT Hgb 12.0 g/dL 04/15/2021 00:49 EDT Hct 42.2 % 04/15/2021 00:49 EDT MCV 90.4 fL 04/15/2021 00:49 EDT MCH 25.7 pg 04/15/2021 00:49 EDT MCHC 28.4 Gram/dL (Low) 04/15/2021 00:49 EDT Platelet Count 376 K/uL (High) 04/15/2021 00:49 EDT MPV 9.8 fL 04/15/2021 00:49 EDT RDW 16.1 % (High) 04/15/2021 00:49 EDT Neut % 79.8 % (High) 04/15/2021 00:49 EDT Neut # 12.58 K/uL (High) 04/15/2021 00:49 EDT Lymph % 10.3 % (Low) 04/15/2021 00:49 EDT Lymph # 1.63 x10(3)/uL 04/15/2021 00:49 EDT Tift % 8.8 % 04/15/2021 00:49 EDT Tift # 1.39 K/uL (High) 04/15/2021 00:49 EDT Eos % 0.1 % 04/15/2021 00:49 EDT Eos # 0.02 x10(3)/uL 04/15/2021 00:49 EDT Baso % 0.4 % 04/15/2021 00:49 EDT Baso # 0.06 x10(3)/uL 04/15/2021 00:49 EDT RBC Morphology Abnormal 04/15/2021 00:49 EDT Poikilocytosis 1+ (Abnormal) 04/15/2021 00:49 EDT Hypochromia 2+ (Abnormal) 04/15/2021 00:49 EDT Ovalocytes 1+ (Abnormal) 04/15/2021 00:[address] Estimate Increased (Abnormal) 04/15/2021 00:49 EDT Slide Review Technologist 04/15/2021 00:49 EDT IG# 0.09 x10(3)/uL (High) 04/15/2021 00:49 EDT IG% 0.60 % 04/15/2021 00:49 EDT PT 11.1 Second(s) 04/15/2021 00:49 EDT INR 1.0 04/15/2021 00:49 EDT TSH 0.360 mcInt Units/mL 04/15/2021 00:49 EDT documented in this encounter Plan of Treatment Not on file documented as of this encounter Visit Diagnoses Not on filedocumented in this encounter
--- OUTSIDE RECORDS SUMMARY | 2025-03-01 16:53 | XMS_ITS | Encounter Summary ---
Author Organization [facility] Address [address] [place] [address] Care Team Providers Care Ship Fitter Name Role Phone Unavailable Primary Care Provider Unavailabl e Encounter Details Date Type Department Care Team (Late st Contact Info) Description 04/15/2021 Transcribed Document [facility] [place] [facility] [place] [address] ProviderPantera MD [address] [place] [address] Social History Tobacco Use Types Packs/Day Years Used Date Smoking Tobacco: Never Assessed Comments Unknown Sex and Gender Information Value Date Recorded Sex Assigned at Not on file Legal Sex Female 7:22 PM CDT Gender Identity Not on file Sexual Orientation Not on file documented as of this encounter Miscellaneous Notes * Cerner Conversion Note - Historical ProviderMD - 04/15/2021 2:00 AM CDT Dental Laboratory Technician Details Entered On: 04/15/2021 4:24 EDT Performed On: 04/15/2021 2:00 EDT by Cathie Peters LPN Order Details Order Detail : N/A Patient Needs Meds Crushed/Liquid : No Cathie Peters LPN - 04/15/2021 4:24 EDT documented in this encounter Plan of Treatment Not on file documented as of this encounter Visit Diagnoses Not on filedocumented in this encounter
--- OUTSIDE RECORDS SUMMARY | 2025-03-01 16:53 | XMS_ITS | Encounter Summary ---
Author Organization [facility] Address [address] [place] [address] Care Team Providers Care Rater Associate Name Role Phone Unavailable Primary Care Provider Unavailabl e Encounter Details Date Type Department Care Team (Late st Contact Info) Description 04/14/2021 Transcribed Document [facility] [place] [facility] [place] [address] ProviderPantera MD [address] [place] [address] Social History Tobacco Use Types Packs/Day Years Used Date Smoking Tobacco: Never Assessed Comments Unknown Sex and Gender Information Value Date Recorded Sex Assigned at Not on file Legal Sex Female 7:22 PM CDT Gender Identity Not on file Sexual Orientation Not on file documented as of this encounter Miscellaneous Notes * Cerner Conversion Note - Pantera ProviderMD - 04/14/2021 11:00 PM CDT Patient: SINDY NGUYEN Age: 75 years Sex: Female : 1945 Associated Diagnoses: None Author: RODRIGO BASURTO DO-INT Basic Information Source of history: Self, Medical record. History of Present Illness Patient is a 75-year-old female with extensive past medical history including hypertension, hyperlipidemia, COPD, hypothyroidism, diabetes mellitus 2, CHF, mood disorders, tobacco abuse among others who presents via transfer for evaluation of GI bleed. Symptoms began about 5 days ago. Patient presented to outside facility for continuous nausea and vomiting. Patient also endorses diarrhea that was nonbloody. Patient had reported dizziness. Endorsed dehydration. She complained of generalized weakness and shortness of breath that has worsened from baseline. Reports moderate lower midline abdominal pain, 5 out of 10, crampy, constant, nonradiating. Exacerbated with p.o. intake and movement, no relieving factors. Denies chest pain, abdominal pain, fevers, chills, neurological deficits or any other symptoms other than listed. Denies hematemesis. Patient was admitted to [facility] on 04/12 8 and discharged on 04/13 for same symptoms and was diagnosed with viral gastroenteritis and dehydration. Patient then presented to [facility] for same symptoms. She was diagnosed with GI bleed, TENA, and hypotension there. Patient transferred here after having occult positive blood, evaluation of GI bleed. Patient also noted to have TENA. Review of Systems Constitutional: Weakness, Fatigue. Eye: Negative. Ear/Nose/Mouth/Throat: Negative. Respiratory: Shortness of breath. Cardiovascular: Negative. Gastrointestinal: Nausea, Vomiting, Diarrhea. Abdominal pain: Lower quadrant, Middle, The severity is moderate, Characterized as ( Cramping/colicky ). Genitourinary: Negative. Hematology/Lymphatics: Negative. Endocrine: Negative. Immunologic: Negative. Musculoskeletal: Negative. Integumentary: Negative. Neurologic: Negative. Psychiatric: Negative. All other systems are negative Health Status Allergies: Allergic Reactions (Selected) Severity Not Documented Abilify- No reactions were documented. Cipro- Swelling and swelling. Pyridium- No reactions were documented., Allergies (3) Active Reaction Abilify None Documented Cipro Swelling Pyridium None Documented Current medications: (Selected) Inpatient Medications Ordered Dulcolax Laxative: 5 mg, Oral, Daily, PRN: Constipation DuoNeb 0.5 mg-2.5 mg/3 mL inhalation solution: 3 mL, Nebulized Inhalation, RT_Q6H, PRN: Shortness of Breath Normal Saline Flush: 10 mL, IV Push, Q12H Normal Saline Flush: 10 mL, IV Push, See Comment, PRN: IV Use Pepcid: 20 mg, Oral, Q12H Roxicodone: 5 mg, Oral, Q4H, PRN: Pain (Moderate 4-6) Sodium Chloride 0.9% intravenous solution 1,000 mL: 50 mL/Hr, IntraVENous Tylenol: 650 mg, Oral, Q4H, PRN: Pain (Mild 1-3) Xanax: 1 mg, Oral, TID, PRN: Anxiety Zofran: 4 mg, IV Push, Q4H, PRN: Nausea gabapentin: 900 mg, Oral, At Bedtime melatonin: 3 mg, Oral, At Bedtime, PRN: Insomnia morphine: 1 mg, IV Push, Q4H, PRN: Pain (Severe 7-10) Documented Medications Documented Advair Diskus 500 mcg-50 mcg inhalation powder: 1 Puff, Inhalation, BID, 180 Each, 0 Refill(s) Crestor: 20 mg, Oral, At Bedtime, 0 Refill(s) Cymbalta: 60 mg, Oral, 0 Refill(s) Drisdol: 50,000 Int Units, Oral, 0 Refill(s) Flonase: 1 [place], Nostrils Both, Daily, 0 Refill(s) Januvia: 100 mg, Oral, Daily, 0 Refill(s) Maxalt: 10 mg, Oral, Daily, 0 Refill(s) Mobic: 15 mg, Oral, Daily, 0 Refill(s) Myrbetriq: 25 mg, Oral, Daily, 0 Refill(s) Pradaxa: 150 mg, Oral, 0 Refill(s) Savella: 100 mg, Oral, BID, 0 Refill(s) Spiriva: 18 mcg, Inhalation, Daily, 0 Refill(s) Symbicort 160 mcg-4.5 mcg/inh inhalation aerosol: 2 Puff, Inhalation, BID, 0 Refill(s) TEGretol XR: 100 mg, Oral, BID, 0 Refill(s) Xanax: 1 mg, Oral, TID, 0 Refill(s) Xopenex HFA 45 mcg/inh inhalation aerosol: Puff, Inhalation, Q4H, 0 Refill(s) Xopenex: Nebulized Inhalation, TID, 0 Refill(s) Xyzal: 5 mg, Oral, QPM, 0 Refill(s) atenolol: 25 mg, Oral, Daily, 0 Refill(s) doxycycline: 100 mg, Oral, At Bedtime, 0 Refill(s) furosemide: 40 mg, Oral, Daily, PRN: Edema, 0 Refill(s) gabapentin: 300 mg, Oral, 0 Refill(s) levothyroxine: 125 mcg, Oral, Daily, 0 Refill(s) losartan: 50 mg, Oral, Daily, 0 Refill(s) metFORMIN: 1,000 mg, Oral, BID, 0 Refill(s) omeprazole: 40 mg, Oral, Daily, 0 Refill(s), Medications (13) Active Scheduled: (3) #NaCl 0.9% *FLUSH* inj 10 mL 10 mL, IV Push, Q12H famotidine 20 mg tab 20 mg 1 Tab, Oral, Q12H gabapentin 300 mg cap 900 mg 3 Cap, Oral, At Bedtime Continuous: (1) NaCl 0.9% 1,000 mL 1,000 mL, IntraVENous, 50 mL/Hr PRN: (9) #NaCl 0.9% *FLUSH* inj 10 mL 10 mL, IV Push, See Comment acetaminophen 325 mg tab 650 mg 2 Tab, Oral, Q4H albuterol-ipratropium inh 3 mL 3 mL, Nebulized Inhalation, RT_Q6H ALPRAZolam 0.5 mg tab 1 mg 2 Tab, Oral, TID bisacodyl EC 5 mg tab 5 mg 1 Tab, Oral, Daily melatonin 3 mg tab 3 mg 1 Tab, Oral, At Bedtime morphine 2 mg/1 ml inj 1 mg 0.5 mL, IV Push, Q4H ondansetron 4 mg/2 mL inj 4 mg 2 mL, IV Push, Q4H oxyCODONE 5 mg tab 5 mg 1 Tab, Oral, Q4H , Home Medications (26) Active Advair Diskus 500 mcg-50 mcg inhalation powder 1 Puff, Inhalation, BID atenolol 25 mg, Oral, Daily Crestor 20 mg, Oral, At Bedtime Cymbalta 60 mg, Oral doxycycline 100 mg, Oral, At Bedtime Drisdol 50,000 Int Units, Oral Flonase 1 [place], Nostrils Both, Daily furosemide 40 mg, PRN, Oral, Daily gabapentin 300 mg, Oral Januvia 100 mg, Oral, Daily levothyroxine 125 mcg, Oral, Daily losartan 50 mg, Oral, Daily Maxalt 10 mg, Oral, Daily metFORMIN 1,000 mg, Oral, BID Mobic 15 mg, Oral, Daily Myrbetriq 25 mg, Oral, Daily omeprazole 40 mg, Oral, Daily Pradaxa 150 mg, Oral Savella 100 mg, Oral, BID Spiriva 18 mcg, Inhalation, Daily Symbicort 160 mcg-4.5 mcg/inh inhalation aerosol 2 Puff, Inhalation, BID TEGretol XR 100 mg, Oral, BID Xanax 1 mg, Oral, TID Xopenex , Nebulized Inhalation, TID Xopenex HFA 45 mcg/inh inhalation aerosol , Inhalation, Q4H Xyzal 5 mg, Oral, QPM Problem list: Medical Cataract / SNOMED CT 792849222 / Confirmed Heart failure / SNOMED CT 139778850 / Confirmed Hypertension / SNOMED CT 42124135 / Confirmed Hyperlipidemia / SNOMED CT 32975363 / Confirmed Pulmonary embolism / SNOMED CT 82651298 / Confirmed COPD (chronic obstructive pulmonary disease) / SNOMED CT 90824223 / Confirmed Sleep apnea / SNOMED CT 563666509 / Confirmed Tobacco use / SNOMED CT 861834045 / Confirmed GERD - Gastro-esophageal reflux disease / SNOMED CT 7978289884 / Confirmed Renal calculus / SNOMED CT 250744875 / Confirmed Back pain / SNOMED CT 405516127 / Confirmed Arthritis / SNOMED CT 8991716 / Confirmed Fibromyalgia / SNOMED CT 5630680816 / Confirmed Diabetes mellitus type II / SNOMED CT 50968091 / Confirmed Thyroid disease / SNOMED CT 024251606 / Confirmed Migraine / SNOMED CT 25459735 / Confirmed Metabolic encephalopathy / SNOMED CT 50150856 / Confirmed Migraine / SNOMED CT 72682249 / Confirmed Esophageal stricture / SNOMED CT 429903740 / Confirmed Anxiety / SNOMED CT 6704980664 / Confirmed Vitamin D deficiency / SNOMED CT 00197904 / Confirmed Vitamin B 12 deficiency / SNOMED CT 0998158102 / Confirmed Mixed incontinence / SNOMED CT 1590708496 / Confirmed Bipolar 1 disorder / SNOMED CT 6414169890 / Confirmed Major depression / SNOMED CT 3905524169 / Confirmed Insomnia / SNOMED CT 555620919 / Confirmed Oxygen dependent / SNOMED CT 5246764696 / Confirmed at night with c-pap PTSD (post-traumatic stress disorder) / SNOMED CT 011227702 / Confirmed, Active Problems (28) Anxiety Arthritis Back pain Bipolar 1 disorder Cataract COPD (chronic obstructive pulmonary disease) Diabetes mellitus type II Esophageal stricture Fibromyalgia GERD - Gastro-esophageal reflux disease Heart failure Hyperlipidemia Hypertension Insomnia Major depression Metabolic encephalopathy Migraine Migraine Mixed incontinence Oxygen dependent PTSD (post-traumatic stress disorder) Pulmonary embolism Renal calculus Sleep apnea Thyroid disease Tobacco use Vitamin B 12 deficiency Vitamin D deficiency Histories Past Medical History: Past medical history reviewed., As listed above Family History: Family history reviewed., Negative, noncontributory, no history of gastrointestinal malignancies Procedure history: partial hysterectomy. complete hysterectomy. tonsillectomy. c- section X 2. multiple bladder surgeries. colon surgery for perforated bowel. colon surgery 2 more times. left knee meniscus tear. kidney stone extraction. cataracts extraction bilateral with IOL. Social History Social & Psychosocial Habits Tobacco 04/18/2016 Smoking Status Current every day smoker Smoking Frequency Within Last 30 Days Five or more cigarettes p Tobacco Use Within Last Twelve Months Cigarettes Years of Tobacco Use 50 Packs/Tins Daily 1 Second Hand Smoke Exposure No Smokeless Tobacco Use in Last 30 Days Yes . Physical Examination VS/Measurements No qualifying data available General: Alert and oriented, No acute distress, frail. Eye: Extraocular movements are intact, Normal conjunctiva, Vision unchanged. HENT: Normocephalic, Normal hearing, Oral mucosa is moist. Neck: Supple, Non-tender, No lymphadenopathy. Respiratory: Lungs are clear to auscultation, Respirations are non-labored, Breath sounds are equal, Symmetrical chest wall expansion, No chest wall tenderness, diminished, prolonged expiration. Cardiovascular: Normal rate, Regular rhythm, No murmur, Good pulses equal in all extremities, No edema. Gastrointestinal: Soft, Non-tender, Non-distended, Normal bowel sounds, No organomegaly. Genitourinary: lam. Musculoskeletal: No tenderness, No swelling, No deformity. Integumentary: Warm, Dry, Intact, pale. Neurologic: Alert, Oriented, Normal motor function, No focal deficits, Cranial Nerves II-XII are grossly intact. Psychiatric: Cooperative, Appropriate mood & affect. Review / Management Results review: Labs (Last four charted values) WBC H 15.8 (APR 15) HB 12.0 (APR 15) HCT 42.2 (APR 15) Plt H 376 (APR 15) Na 142 (APR 15) K 3.9 (APR 15) Cl 108 (APR 15) CO2 28 (APR 15) BUN H 30 (APR 15) Cr H 1.60 (APR 15) Glu R H 125 (APR 15) Ca L 8.0 (APR 15) PT 11.1 (APR 15) INR 1.0 (APR 15) AST 33 (APR 15) ALT 28 (APR 15) ALK P 72 (APR 15) T Bili 0.3 (APR 15) PTN 6.8 (APR 15) ALB L 3.1 (APR 15) , APR 15 00:49 142 108 H 30 / H 125 3.9 28 H 1.60 \ APR 15 00:49 \ 12.0 / H 15.8 H 376 / 42.2 \. Radiology results No Radiology Results Found Impression and Plan 04/14/2021 Chart reviewed, outside records reviewed, SCDs DVT prophylaxis, n.p.o. until GI evaluation Full code Acute GI bleed with viral gastroenteritis; leukocytosis Work-up reviewed at outside facility Occult positive N.p.o. Pain control Antiemetics PT/OT Consult GI Acute renal failure 2/2 prerenal dehydration IV fluids Monitor renal function Avoid nephrotoxins Hypotension 2/2 dehydration, anemia; history of hypertension Fluid resuscitation Hold antihypertensives Anemia Monitor H&H and transfuse PRBCs if hemoglobin less than 7 Hyperlipidemia Home medications Hypothyroidism TSH Thyroxine Diabetes mellitus 2 Insulin, Insulin sliding scale, hold any home p.o. medications A1c History of mood disorders Electronically signed by Olga Gonsalves Conversion Administrative Program Specialist Cerner at 01/02/2023 6:26 PM CDT documented in this encounter Plan of Treatment Not on file documented as of this encounter Visit Diagnoses Not on filedocumented in this encounter
--- OUTSIDE RECORDS SUMMARY | 2025-03-01 16:53 | XMS_ITS | Encounter Summary ---
Author Organization [facility] Address [address] [place] [address] Care Team Providers Care Director Behavioral Health Name Role Phone Unavailable Primary Care Provider Unavailabl e Encounter Details Date Type Department Care Team (Late st Contact Info) Description 04/15/2021 Transcribed Document [facility] [place] [facility] [place] [address] ProviderPantera MD [address] [place] [address] Social History Tobacco Use Types Packs/Day Years Used Date Smoking Tobacco: Never Assessed Comments Unknown Sex and Gender Information Value Date Recorded Sex Assigned at Not on file Legal Sex Female 7:22 PM CDT Gender Identity Not on file Sexual Orientation Not on file documented as of this encounter Miscellaneous Notes * Cerner Conversion Note - Historical ProviderMD - 04/15/2021 12:50 PM CDT [facility] Endo PACU Summary Primary Physician: NIKHIL RINCON MD Finalized Date/Time: 04/15/21 13:58:40 Pt. Name: SINDY NGUYEN /Sex: 1945 Female Med Rec #: [id number] Physician: RODRIGO BASURTO DO-INT Financial #: [id number] Pt. Type: I Room/Bed: [facility]/ Admit/Disch: 04/14/21 23:14:00 - Institution: [facility] PACU Case Times Entry 1 In PACU I 04/15/21 13:31:00 Ready for PACU 04/15/21 13:55:00 Discharge Discharge from PACU 04/15/21 13:57:00 I Last Modified By: Harriett Antoine RN 04/15/21 13:58:38 [facility] Endo PACU Case Times Audit 04/15/21 13:58:38 Bundle Breaker: JACKELIN Modifier: JACKELIN <+> 1 Ready for PACU Discharge <+> 1 Discharge from PACU I Finalized By: Harriett Antoine RN Document Signatures Signed By: Harriett Antoine RN 04/15/21 13:58 Electronically signed by [facility] Conversion Double Reamer Operator Cerner at 01/02/2023 6:09 PM CDT documented in this encounter Plan of Treatment Not on file documented as of this encounter Visit Diagnoses Not on filedocumented in this encounter
--- OUTSIDE RECORDS SUMMARY | 2025-03-01 16:53 | XMS_ITS | Encounter Summary ---
Author Organization [facility] Address [address] [place] [address] Care Team Providers Care Posting Machine Operator Name Role Phone Unavailable Primary Care Provider Unavailabl e Encounter Details Date Type Department Care Team (Late st Contact Info) Description 04/15/2021 Transcribed Document [facility] [place] [facility] [place] [address] ProviderPantera MD [address] [place] [id number] Social History Tobacco Use Types Packs/Day Years Used Date Smoking Tobacco: Never Assessed Comments Unknown Sex and Gender Information Value Date Recorded Sex Assigned at Not on file Legal Sex Female 7:22 PM CDT Gender Identity Not on file Sexual Orientation Not on file documented as of this encounter Miscellaneous Notes * Cerner Conversion Note - Historical ProviderMD - 04/15/2021 5:00 PM CDT Chart Check - Review Order Profile Entered On: 04/15/2021 18:25 EDT Performed On: 04/15/2021 17:00 EDT by Celeste Trujillo RN Chart Check Powerplans Initiated/Discontinued as Appropriate : Yes All Active Orders Reviewed : Yes Celeste Trujillo RN - 04/15/2021 18:25 EDT documented in this encounter Plan of Treatment Not on file documented as of this encounter Visit Diagnoses Not on filedocumented in this encounter
--- OUTSIDE RECORDS SUMMARY | 2025-03-01 16:53 | XMS_ITS | Referral Summary ---
Author Organization [facility] Address [address] [place] [address] Care Team Providers Care Elementary School Teacher'S Aide Name Role Phone Unavailable Primary Care Provider Unavailabl e Social History Tobacco Use Types Packs/Day Years Used Date Smoking Tobacco: Never Assessed Comments Unknown Sex and Gender Information Value Date Recorded Sex Assigned at Not on file Legal Sex Female 7:22 PM CDT Gender Identity Not on file Sexual Orientation Not on file Plan of Treatment Not on file
--- OUTSIDE RECORDS SUMMARY | 2025-03-01 16:53 | XMS_ITS | Encounter Summary ---
Author Organization [employer] [facility] Address [address] [place] [address] Care Team Providers Care Kidney Puller Name Role Phone Unavailable Primary Care Provider Unavailabl e Encounter Details Date Type Department Care Team (Late st Contact Info) Description 04/15/2021 Transcribed Document [facility] [place] Family Medicine [facility] [place] [address] ProviderPantera MD [address] [place] [address] Social History Tobacco Use Types Packs/Day Years Used Date Smoking Tobacco: Never Assessed Comments Unknown Sex and Gender Information Value Date Recorded Sex Assigned at Not on file Legal Sex Female 7:22 PM CDT Gender Identity Not on file Sexual Orientation Not on file documented as of this encounter Miscellaneous Notes * Cerner Conversion Note - Historical ProviderMD - 04/15/2021 12:13 AM CDT Evaluation, Physical Therapy Entered On: 04/16/2021 12:29 EDT Performed On: 04/16/2021 11:54 EDT by JANET GRAHAM, PT General Information, PT Therapy Diagnosis, PT : decreased independent functional mobility Onset of Problem, PT : 04/14/2021 EDT General Information Comment, PT : Pt admitted with GI bleed MHX: HTN, HLD, COPD, DM, CHF, hypothyroid JANET GRAHAM, PT - 04/16/2021 12:34 EDT Visit Type, PT : Initial evaluation Patient Orders : Order Date Order Ordering 04/15/2021 00:14 PT Evaluation and Treatment Ordered By: RODRIGO BASURTO DO-INT Active Diagnoses : No Qualifying Diagnoses Admission Date : 04/14/2021 23:14 Co-treated by, PT : Occupational Therapist Personal Devices : Personal Devices Dentures, upper, Dentures, lower Assistive Devices : Assistive Devices No Devices Recorded JANET GRAHAM, PT - 04/16/2021 12:10 EDT General Status Patient Received Status : Supine in bed Treatment Start Time : 04/16/2021 11:30 EDT Patient Left Status : Up in chair, Chair alarm activated, RN/PCT informed, Communication board completed, All needs met and within reach RN/PCT Informed Comment : Celeste aproved PT Treatment End Time : 04/16/2021 11:54 EDT Treatment Time : 24 Minute(s) JANET GRAHAM, PT - 04/16/2021 12:10 EDT History and Environment Living Situation, Therapy : Home Patient Lives With : Alone Persons Providing Information : Patient Home Equipment Therapy, PT : None Home Setup : One story Stairs : Yes Stair Location(s) : Outside Outside Stairs, Number of Steps : 1 Railing Outside : Yes JANET GRAHAM, PT - 04/16/2021 12:10 EDT Prior Level of Function PT GRID Prior LOF Ambulation, Household : Independent Prior LOF Ambulation, Community : Independent Prior LOF Bed Mobility : Independent Prior LOF Toileting : Independent Prior LOF Transfer : Independent JANET GRAHAM, PT - 04/16/2021 12:10 EDT Prior LOF Assist with ADL Comment : Pt reports increased time and difficulty with ADL's due to back pain but able to perform independently JANET GRAHAM, PT - 04/16/2021 12:10 EDT Upper Extremity Right UE Active ROM : WFL Right UE Strength : WFL Left UE Active ROM : WFL Left UE Strength : WFL Right UE Strength : WFL Left UE Strength : WFL JANET GRAHAM, PT - 04/16/2021 12:10 EDT Lower Extremity RLE Active ROM : WFL Right LE Strength : WFL LLE Active ROM : WFL Left LE Strength : WFL JANET GRAHAM, PT - 04/16/2021 12:10 EDT Functional Mobility Mobility Grid Supine to Sit : Rehab Minimal assistance Sit to Stand : Rehab Minimal assistance (Comment: x 2 [JANET GRAHAM, PT - 04/16/2021 12:10 EDT] ) Bed to Chair : Rehab Minimal assistance (Comment: x 2 [JANET GRAHAM, PT - 04/16/2021 12:10 EDT] ) Stand to Sit : Rehab Minimal assistance (Comment: x 2 [JANET GRAHAM, PT - 04/16/2021 12:10 EDT] ) JANET GRAHAM, PT - 04/16/2021 12:10 EDT Gait Training/Assessment, PT Weight Bearing Status : Full Gait Assistance Level : Unable to assess/activity not appropriate Walking Distance : unable to assess due to pt amb 5' only bed-chair with gt belt and rwx with min ast of 2 JANET GRAHAM, PT - 04/16/2021 12:10 EDT Cognition Assessment, PT Orientation : Oriented x 4 Safety/Judgment Comment : good with pt expressing understanding to call for asst for OB activity but has had recent falls therefore chair alarm placed Follows Basic Command Assessment : yes Attention Assessment : Present JANET GRAHAM, PT - 04/16/2021 12:10 EDT Edu Topics Physical Therapy Education Grid Balance Training : Verbalizes understanding, Needs reinforcement Bed Mobility Training : Verbalizes understanding, Needs reinforcement Gait Training : Verbalizes understanding, Needs reinforcement Role of Physical Therapy : Verbalizes understanding, Needs reinforcement Safety : Verbalizes understanding, Needs reinforcement Therapeutic Exercises : Verbalizes understanding, Needs reinforcement Transfer Training : Verbalizes understanding, Needs reinforcement Use of Assistive Device : Verbalizes understanding, Needs reinforcement JANET GRAHAM, PT - 04/16/2021 12:10 EDT Indication Assesessment, PT Physical Therapy Indicated : Yes PT Problem List : Impaired, activities daily living, Impaired, bed mobility, Impaired, endurance tolerance, Impaired, gait, Impaired, transfers Potential Barriers To Therapy : Other: c/o dizziness with transitional movement Rehabilitation Potential : Good JANET GRAHAM, PT - 04/16/2021 12:10 EDT Plan of Care, PT PT Tx Plan/Goals Established w Patient : Yes PT Frequency Rehab : Five days per week PT Duration Rehab : Other: 14 days or goals met or discharged from hospital PT Treatments Planned : Balance training, Bed mobility training, Gait training, Safety education, Therapeutic exercises, Transfer training JANET GRAHAM, PT - 04/16/2021 12:10 EDT Short Term Goals Mobility/Bed Mobility STG PT Grid Goal #1 Goal #2 Activity : Supine to sit Sit to stand Assist : Supervision or set-up Supervision or set-up Date to Meet : 04/23/2021 EDT 04/24/2021 EDT Goal Status : Initial goal Initial goal JANET GRAHAM, PT - 04/16/2021 12:10 EDT JANET GRAHAM, PT - 04/16/2021 12:10 EDT Ambulation STG Grid Goal #1 Device : Walker, front wheel Distance : 150' Assist : Assist, minimal Date to Meet : 04/23/2021 EDT Goal Status : Intial Goal JANET GRAHAM, PT - 04/16/2021 12:10 EDT Risk And Insurance Consultant Goals Mobility/Bed Mobility LTG PT Grid Goal #1 Goal #2 Activity : Supine to sit Sit to stand Assist : Independent, modified Independent, modified Date to Meet : 04/30/2021 EDT 04/30/2021 EDT Goal Status : Intial Goal Intial Goal JANET GRAHAM, PT - 04/16/2021 12:10 EDT JANET GRAHAM, PT - 04/16/2021 12:10 EDT Ambulation LTG Grid Goal #1 Device : Walker, front wheel Distance : 200' Assist : Supervision or set-up Date to Meet : 04/30/2021 EDT Goal Status : Intial Goal JANET GRAHAM, PT - 04/16/2021 12:10 EDT Treatment Note Subjective Comment : Pt agreed t PT/OT with pt goal to return home to independent living and to have back surgery to get rid of pain Patient's Response to Treatment : pt cooperative but had c/o dizziness with transitional movement that cleared once positioned still BP 127/72 with O2 sat 95% on 4 L o2 Additional Objective Information : Pt was min ast for supine-sit to EOB Pt was min ast of 2 for sit-stand with gt belt and rwx and amb 5' with min asst from bed to chair. Pt requried vc for safety with hand placement and to back completely prior initiating descent stand-sitto chair pt reclined and instructed in and performed AP, QS, and GS pt had lunch tray set up with needs in reach Assessment : Pt would benefit from PT during LOS to ast with improving safety and endurance with functional mobility. Pt would benefit from ST rehab after discharge to be able to safely return home alone Plan for Treatment : cont PT JANET GRAHAM, PT - 04/16/2021 12:10 EDT Pain Assessment Pain Scaled Used : 0-10 Pain scale Pain Score Pre-Intervention : 5 Pain Score During-Intervention : 5 Pain Score Post-Intervention. : 4 Pain Comment : c/o back pain but pain lessened after positioned for comfort in chair JANET GRAHAM, PT - 04/16/2021 12:10 EDT Image 1 - Images currently included in the form version of this document have not been included in the text rendition version of the form. Anticipated Discharge Needs, OT/PT Anticipated Discharge to : Unit, rehabilitation Recommend Continued Therapy at Discharge : Yes JANET GRAHAM, PT - 04/16/2021 12:[address] [facility] PT Charges PT Therap. Exercise 15 min : 1 PT Eval Low Complexity : 1 JANET GRAHAM, PT - 04/16/2021 12:10 EDT documented in this encounter Plan of Treatment Not on file documented as of this encounter Visit Diagnoses Not on filedocumented in this encounter
--- OUTSIDE RECORDS SUMMARY | 2025-03-01 16:53 | XMS_ITS | Encounter Summary ---
Author Organization [employer] [facility] Address [address] [place] [address] Care Team Providers Care Passenger Service Supervisor Name Role Phone Unavailable Primary Care Provider Unavailabl e Encounter Details Date Type Department Care Team (Late st Contact Info) Description 04/15/2021 Transcribed Document [facility] [place] Medicine [facility] [place] [address] ProviderPantera MD [address] [place] [address] [id number] Social History Tobacco Use Types Packs/Day Years Used Date Smoking Tobacco: Never Assessed Comments Unknown Sex and Gender Information Value Date Recorded Sex Assigned at Not on file Legal Sex Female 7:22 PM CDT Gender Identity Not on file Sexual Orientation Not on file documented as of this encounter Miscellaneous Notes * Cerner Conversion Note - Historical ProviderMD - 04/15/2021 5:00 AM CDT Chart Check - Review Order Profile Entered On: 04/15/2021 4:24 EDT Performed On: 04/15/2021 5:00 EDT by Cathie Peters LPN Chart Check Powerplans Initiated/Discontinued as Appropriate : Yes All Active Orders Reviewed : Yes Cathie Peters LPN - 04/15/2021 4:24 EDT Electronically signed by Olga Gonsalves Conversion Supervisor Shuttle Preparation [employer] at 01/02/2023 6:26 PM CDT documented in this encounter Plan of Treatment Not on file documented as of this encounter Visit Diagnoses Not on filedocumented in this encounter
--- OUTSIDE RECORDS SUMMARY | 2025-03-01 16:53 | XMS_ITS | Encounter Summary ---
Author Organization [employer] Address [address] [place] [address] Care Team Providers Care Medical Education Manager Name Role Phone Unavailable Primary Care Provider Unavailabl e Encounter Details Date Type Department Care Team (Late st Contact Info) Description 04/15/2021 Transcribed Document [facility] [place] [facility] [place] [address] ProviderPantera MD [address] [place] [address] [phone] Social History Tobacco Use Types Packs/Day Years Used Date Smoking Tobacco: Never Assessed Comments Unknown Sex and Gender Information Value Date Recorded Sex Assigned at Not on file Legal Sex Female 7:22 PM CDT Gender Identity Not on file Sexual Orientation Not on file documented as of this encounter Miscellaneous Notes * Cerner Conversion Note - Pantera ProviderMD - 04/15/2021 8:00 AM CDT Consult Phone Call Documentation Entered On: 04/15/2021 9:34 EDT Performed On: 04/15/2021 8:00 EDT by Alice Pool Patient Coil Winder Robina Phone Call for Consults Consult Phone Call/Page Attempt : Other: spoke with chinmay Consult Reason : gi bleed, occult + Physician Requesting Consult : RODRIGO BASURTO DO-INT Physician Requested for Consult : KENRICK SULLIVAN MD Provider Service Notified Name : Gastroenterology Date and Time Call Returned : 04/15/2021 9:34 EDT Alice Pool Patient Coil Winder Robina - 04/15/2021 9:33 EDT documented in this encounter Plan of Treatment Not on file documented as of this encounter Visit Diagnoses Not on filedocumented in this encounter
--- OUTSIDE RECORDS SUMMARY | 2025-03-01 16:53 | XMS_ITS | Encounter Summary ---
Author Organization [employer] [facility] Address [address] [place] [address] Care Team Providers Care Lead Business Systems Analyst Name Role Phone Unavailable Primary Care Provider Unavailabl e Encounter Details Date Type Department Care Team (Late st Contact Info) Description 04/15/2021 Transcribed Document [facility] [facility] [place] [facility] [place] [address] ProviderPantera MD [address] [place] [address] [phone] Social History Tobacco Use Types Packs/Day Years Used Date Smoking Tobacco: Never Assessed Comments Unknown Sex and Gender Information Value Date Recorded Sex Assigned at Not on file Legal Sex Female 7:22 PM CDT Gender Identity Not on file Sexual Orientation Not on file documented as of this encounter Miscellaneous Notes * Cerner Conversion Note - Historical ProviderMD - 04/15/2021 11:42 AM CDT Attempt to Treat, OT Entered On: 04/15/2021 12:10 EDT Performed On: 04/15/2021 11:42 EDT by Isabella Spring OCCUPATIONAL THERAPIST NON-EXEMPT Attempt to Treat Unable to Treat Due To : Patient Unavailable Inability to Treat Comment : Pt prepping for EGD and colonoscopy. Will attempt again at a later time/day. Notification : Isabella Roy OCCUPATIONAL THERAPIST NON-EXEMPT - 04/15/2021 12:08 EDT Electronically signed by Olga Gonsalves Conversion Assistant Passenger Locomotive Engineer [place] at 01/02/2023 6:03 PM CDT documented in this encounter Plan of Treatment Not on file documented as of this encounter Visit Diagnoses Not on filedocumented in this encounter
--- OUTSIDE RECORDS SUMMARY | 2025-03-01 16:53 | XMS_ITS | Encounter Summary ---
Author Organization [employer] Address [address] [place] [address] Care Team Providers Care Typesetter Apprentice Name Role Phone Unavailable Primary Care Provider Unavailabl e Encounter Details Date Type Department Care Team (Late st Contact Info) Description 04/15/2021 Transcribed Document [facility] [place] [facility] [place] [address] ProviderPantera MD [address] [place] [address] Social History Tobacco Use Types Packs/Day Years Used Date Smoking Tobacco: Never Assessed Comments Unknown Sex and Gender Information Value Date Recorded Sex Assigned at Not on file Legal Sex Female 7:22 PM CDT Gender Identity Not on file Sexual Orientation Not on file documented as of this encounter Miscellaneous Notes * Cerner Conversion Note - Pantera Tineo MD - 04/15/2021 1:49 PM CDT Patient: SINDY NGUYEN Age: 75 Years Sex: Female : 1945 *Operation Esophagogastroduodenoscopy, Colonoscopy, Duodenal Biopsy, Gastric Biopsy, Colon Biopsy, Anesthesia Type MAC TYLER SCHROEDER MD-ANS (Anesthesiologist) NICOLE MEDINA MD-ANS (Anesthesiologist) MAC FANY-TYLER AN MD-ANS (Anesthesiologist) NICOLE MEDINA MD-ANS (Anesthesiologist) MAC TYLER SCHROEDER MD-ANS (Anesthesiologist) NICOLE MEDINA MD-ANS (Anesthesiologist) MAC TYLER SCHROEDER MD-ANS (Anesthesiologist) NICOLE MEDINA MD-ANS (Anesthesiologist) MAC FANY-TYLER AN MD-ANS (Anesthesiologist) CAROL, NICOLE, MD-ANS (Anesthesiologist) Indication for Surgery diarrhea, GI bleeding *Preoperative Diagnosis GI Bleed/Diarrhea *Postoperative Diagnosis gastritis *Surgeon(s) Primary Surgeon NIKHIL RINCON MD (Surgeon/Proceduralist, First) *Estimated Blood Loss Minimal *Findings Striped gastritis (biopsies for H pylori) Duodenal mucosal flattening (biopsied) Pancolitis picture (Borden 2; left and right colon bx) PLAN: Requested stat biopsies, CRP/ESR/, stool studies. Will treat for IBD +/- C diff depending on pathology results *Specimen(s) gastric bx duodenal bx right left colon Complications None Date of Service Date/Time of Service SN - Proc - Start Time: 04/15/21 13:07:00 (04/15/21 13:19:10) Electronically signed by Major [facility] Conversion Radiology Special Procedure Tech Cerner at 01/02/2023 6:01 PM CDT documented in this encounter Plan of Treatment Not on file documented as of this encounter Visit Diagnoses Not on filedocumented in this encounter
--- OUTSIDE RECORDS SUMMARY | 2025-03-01 16:53 | XMS_ITS | Encounter Summary ---
Author Organization [employer] [facility] Address [address] [place] [address] Care Team Providers Care Pig Conveyor Operator Name Role Phone Unavailable Primary Care Provider Unavailabl e Encounter Details Date Type Department Care Team (Late st Contact Info) Description 04/15/2021 Transcribed Document [facility] [facility] [place] [address] ProviderPantera MD [address] [place] [address] Social History Tobacco Use Types Packs/Day Years Used Date Smoking Tobacco: Never Assessed Comments Unknown Sex and Gender Information Value Date Recorded Sex Assigned at Not on file Legal Sex Female 7:22 PM CDT Gender Identity Not on file Sexual Orientation Not on file documented as of this encounter Miscellaneous Notes * Cerner Conversion Note - Pantera ProviderMD - 04/15/2021 3:15 PM CDT UM Authorization Entered On: 04/15/2021 15:15 EDT Performed On: 04/15/2021 15:15 EDT by NICOLÁS LUIS RN Primary Insurance Authorization Authorization and Policy Numbers : Insurance 1 Health Plan: [employer] PPO Policy Number: [id number] Authorization Number: Insurance Primary Name : [employer] PPO Policy Number: [id number] Authorization Status-Primary : Awaiting callback Reference Number-Primary : Pend ref #[id number] Authorized Service Begin Date-Primary : 04/14/2021 EDT Authorization Comments-Primary : Ref to [employer] Historical Authorization Comments-Primary : Comment 1: Pend ref no per Availity, reviewer has access to [facility] (NICOLÁS LUIS RN 04/15/2021 09:26) NICOLÁS LUIS RN - 04/15/2021 15:15 EDT Electronically signed by Major [facility] Conversion Child Day Care Provider Cerner at 01/02/2023 6:18 PM CDT documented in this encounter Plan of Treatment Not on file documented as of this encounter Visit Diagnoses Not on filedocumented in this encounter
--- OUTSIDE RECORDS SUMMARY | 2025-03-01 16:53 | XMS_ITS | Encounter Summary ---
Author Organization [employer] Address [address] [place] [address] Care Team Providers Care Security Escort Name Role Phone Unavailable Primary Care Provider Unavailabl e Encounter Details Date Type Department Care Team (Late st Contact Info) Description 04/15/2021 Transcribed Document [facility] [place] [facility] [place] [address] ProviderPantera MD [address] [place] [address] Social History Tobacco Use Types Packs/Day Years Used Date Smoking Tobacco: Never Assessed Comments Unknown Sex and Gender Information Value Date Recorded Sex Assigned at Not on file Legal Sex Female 7:22 PM CDT Gender Identity Not on file Sexual Orientation Not on file documented as of this encounter Miscellaneous Notes * Cerner Conversion Note - Pantera ProviderMD - 04/15/2021 12:43 AM CDT Pain Assessment Entered On: 04/16/2021 9:35 EDT Performed On: 04/16/2021 8:58 EDT by Celeste Trujillo RN Intervention Information: morphine Performed by Celeste Trujillo RN on 04/16/2021 08:28:00 EDT morphine,1mg IV Push,Left Antecubital [place],Pain (Severe 7-10) Pain Assessment Pain Assessment : Follow-up assessment Pain Scale Goal : 2 Pain Scale Used : 0-10 Scale Location : Back Onset : Acute Celeste Trujillo RN - 04/16/2021 9:35 EDT Pain Scale Intensity : 5 Celeste Trujillo RN - 04/16/2021 9:35 EDT Image 4 - Images currently included in the form version of this document have not been included in the text rendition version of the form. documented in this encounter Plan of Treatment Not on file documented as of this encounter Visit Diagnoses Not on filedocumented in this encounter
--- OUTSIDE RECORDS SUMMARY | 2025-03-01 16:53 | XMS_ITS | Encounter Summary ---
Author Organization [email or web address] [facility] Address [address] [place] [address] Care Team Providers Care Activity Specialist Name Role Phone Unavailable Primary Care Provider Unavailabl e Encounter Details Date Type Department Care Team (Late st Contact Info) Description 04/15/2021 Transcribed Document [facility] [place] [facility] [place] [address] ProviderPantera MD [address] [place] [address] Social History Tobacco Use Types Packs/Day Years Used Date Smoking Tobacco: Never Assessed Comments Unknown Sex and Gender Information Value Date Recorded Sex Assigned at Not on file Legal Sex Female 7:22 PM CDT Gender Identity Not on file Sexual Orientation Not on file documented as of this encounter Miscellaneous Notes * Cerner Conversion Note - Pantera ProviderMD - 04/15/2021 9:26 AM CDT UM Authorization Entered On: 04/15/2021 9:26 EDT Performed On: 04/15/2021 9:26 EDT by NICOLÁS LUIS RN Primary Insurance Authorization Authorization and Policy Numbers : Insurance 1 Health Plan: [employer] PPO Policy Number: [id number] Authorization Number: Insurance Primary Name : [employer] PPO Policy Number: [id number] Authorization Status-Primary : Awaiting callback Reference Number-Primary : Pend ref #[id number] Authorized Service Begin Date-Primary : 04/14/2021 EDT Authorization Comments-Primary : Pend ref no per Availity, reviewer has access to [facility] Historical Authorization Comments-Primary : No Authorization Comments Found NICOLÁS LUIS RN - 04/15/2021 9:26 EDT documented in this encounter Plan of Treatment Not on file documented as of this encounter Visit Diagnoses Not on filedocumented in this encounter
--- OUTSIDE RECORDS SUMMARY | 2025-03-01 16:53 | XMS_ITS | Encounter Summary ---
Author Organization [employer] Address [address] [place] [address] Care Team Providers Care Driller Portable Name Role Phone Unavailable Primary Care Provider Unavailabl e Encounter Details Date Type Department Care Team (Late st Contact Info) Description 04/15/2021 Transcribed Document [facility] [place] [facility] [address] ProviderPantera MD [address] [place] [address] [id number] Social History Tobacco Use Types Packs/Day Years Used Date Smoking Tobacco: Never Assessed Comments Unknown Sex and Gender Information Value Date Recorded Sex Assigned at Not on file Legal Sex Female 7:22 PM CDT Gender Identity Not on file Sexual Orientation Not on file documented as of this encounter Miscellaneous Notes * Cerner Conversion Note - Pantera ProviderMD - 04/15/2021 4:08 PM CDT Consult Phone Call Documentation Entered On: 04/15/2021 16:25 EDT Performed On: 04/15/2021 16:08 EDT by Alice Pool Patient Voip Network Engineer Robina Phone Call for Consults Consult Phone Call/Page Attempt : Other: spoke with office Consult Reason : sammie Physician Requesting Consult : EDWARDO SCHULTZ PA-C Physician Requested for Consult : ABE العراقي MD-URO Provider Team Notified Name : Urology Physician Covering for Consult : ROSITA LARKIN MD Date and Time Call Returned : 04/15/2021 16:25 EDT Alice Pool Patient Voip Network Engineer Robina - 04/15/2021 16:24 EDT Electronically signed by Major [facility] Conversion Public Relations Player Cerner at 01/02/2023 6:12 PM CDT documented in this encounter Plan of Treatment Not on file documented as of this encounter Visit Diagnoses Not on filedocumented in this encounter
--- OUTSIDE RECORDS SUMMARY | 2025-03-01 16:53 | XMS_ITS | Encounter Summary ---
Author Organization [employer] Address [address] [place] [address] Care Team Providers Care Barrel Burner Name Role Phone Unavailable Primary Care Provider Unavailabl e Encounter Details Date Type Department Care Team (Late st Contact Info) Description 04/14/2021 Transcribed Document [facility] [place] [facility] [place] [address] ProviderPantera MD [address] [place] [address] [id number] Social History Tobacco Use Types Packs/Day Years Used Date Smoking Tobacco: Never Assessed Comments Unknown Sex and Gender Information Value Date Recorded Sex Assigned at Not on file Legal Sex Female 7:22 PM CDT Gender Identity Not on file Sexual Orientation Not on file documented as of this encounter Miscellaneous Notes * Cerner Conversion Note - Pantera ProviderMD - 04/14/2021 11:12 PM CDT Admission History, Adult Entered On: 04/14/2021 23:53 EDT Performed On: 04/14/2021 23:12 EDT by Cathie Peters LPN Advance Directive Patient has Advance Directive *Q : No, patient refuses Advance Directive information Cathie Peters LPN - 04/14/2021 23:44 EDT Anesthesia/Transfusion History Family History of Anesthesia Reaction : Prior transfusion without reaction Transfusion History : Prior anesthesia without reaction Family History of Anesthesia Reaction : None Cathie Peters LPN - 04/14/2021 23:44 EDT Anticipated Discharge Needs Discharge To, Anticipated : Home Cathie Peters LPN - 04/14/2021 23:44 EDT Education Topics, Admission Orientation DCP GENERIC CODE Advance Directives : Verbalizes understanding Allergy Band Applied : Verbalizes understanding Assessment/Vital Signs : Verbalizes understanding Bed Control : Verbalizes understanding Call Light : Verbalizes understanding Confidentiality : Verbalizes understanding Diet/Room Service : Verbalizes understanding Fall Prevention : Verbalizes understanding Hand Hygiene : Verbalizes understanding Healthcare Provider Visit : Verbalizes understanding ID Band Applied : Verbalizes understanding Isolation Precautions : Verbalizes understanding Orientation to Room/Bathroom : Verbalizes understanding Patient Bill of Rights : Verbalizes understanding Patient Rights/Responsibilities : Verbalizes understanding Patient Safety : Verbalizes understanding Personal Privacy Code : Verbalizes understanding Rapid Response Initiated by Patient/Family : Verbalizes understanding Rounding : Verbalizes understanding Siderails use/risks : Verbalizes understanding Skin Precautions : Verbalizes understanding Smoking Policy : Verbalizes understanding Telemetry Monitoring : Verbalizes understanding Television/Phone : Verbalizes understanding Visiting Policy : Verbalizes understanding Cahtie Peters LPN - 04/14/2021 23:44 EDT Functional Assessment Living Situation : Home Current Home Treatments : Blood glucose monitoring, CPAP, Oxygen therapy Cathie Peters LPN - 04/14/2021 23:44 EDT General Info Contact Password : Celeste Jimenez RN - 04/15/2021 14:26 EDT Support Person/Patient Director Of Casino : Yes Support Person/Pt Rep Name : annalise Nasreen - friend Support Person/Pt Rep Contact Information : [phone] Want Family/Rep/Phys Notified of Admit : No Emergency Contact #1 : Celeste Rios Emergency Contact #1 Emergency Contact #1 Relationship : Daughter Emergency Contact #2 : Mariana Nay Emergency Contact #2 Emergency Contact #2 Relationship : Daughter Primary Language : Cambodian Preferred Communication Mode : Verbal Communication Barrier : None Labor Relations Specialist Needed : No Cathie Peters LPN - 04/14/2021 23:44 EDT Fall Risk Scales ABCs Fall Injury Risk Identification : Age, Coagulation ABC Fall Injury Risk : Moderate to high injury risk Injury Moderate to High Risk Interventions : Transport methods appropriate to patient JOHNS Hx Falls Immediate/Within 3 Months : Yes Johns Secondary Diagnosis : Yes JOHNS Use of Ambulatory Aid : None JOHNS IV Therapy or IV Access : Yes Johns Gait/Transferring : Weak Johns Mental Status : Oriented to own ability Johns Fall Risk Score : 70 JOHNS Fall Scale Risk Level : 46 or > High Risk Kingsley Fall Interventions : Adequate lighting, Assistive devices within reach, Bed in low position, Call device within reach, Frequent orientation to call device, Frequent orientation to surroundings, Hourly comfort/safety rounds, Non-slip footwear, Personal items within reach, Reinforced to call for assistance before getting out of bed, Room free of clutter/spills, Upper side-rails up, Wheels locked, Wires/Cords secured Fall Risk Scale Calc Temp : 0 Cathie Peters LPN - 04/14/2021 23:44 EDT Health Histories Smoking Status : 10 or more cigarettes (1/2 pack or more)/day in last 30 days Smokeless Tobacco Status : Never Desires Tobacco Cessation Medication : Yes Cathie Peters ZABRINA Laird 04/14/2021 23:44 EDT Social History (As Of: 04/14/2021 23:53:07 EDT) Tobacco: Smoking Status Current every day smoker. Five or more cigarettes per day Smoking Frequency Within Last 30 Days. Use in Last 12 Months: Cigarettes. Years of Use: 50. Packs/Tins Daily: 1. Second Hand Smoke Exposure: No. Yes Smokeless Tobacco Use in Last 30 Days. (Last Updated: 04/18/2016 13:20:58 EDT by DAVE GO RN) Height and Weight, Clinical Dosing Height Source : Estimated Height Entry Format : [place] Height, Feet : 5 ft(Converted to: 152 cm, 60 Inch) Height, Inches : 5 Inch(Converted to: 0 ft 5 Inch, 12.70 cm) Clinical Height : 165.1 cm Weight Source : Estimated [place] Of [place] Body Weight : 57 kg Cathie Peters LPAlonso Laird 04/14/2021 23:44 EDT Estimated Weight Type of Weight Measurement Est : [place] Weight, est lb : 194 lb(Converted to: 88 kg) Estimated Clinical Dosing Weight : 88.18 kg Cathie Peters LPAlonso Laird 04/14/2021 23:44 EDT Infectious Disease History Has the patient ever been tested for COVID-19? : Yes, Patient stated results Negative Date of COVID-19 test known? : Yes Date of COVID-19 Test : 04/14/2021 EDT Does patient have symptoms of COVID-19? : No COVID19 Screening : No Experiencing Infectious Disease Symptoms : No symptoms Physical contact outside [place] in the last 30 days : No Infectious Disease History : None Tuberculosis Symptoms : None Cathie Peters ZABRINA - 04/14/2021 23:44 EDT Tetanus Immunization Status Previous Tetanus Immunizations : No qualifying data available. Tetanus Immunization : Less than 5 years Cathie Peters LPN - 04/14/2021 23:44 EDT Influenza Vaccine Asmt, Adult Previous Vaccines from Immunization Schedule : No qualifying data available. Influenza Immunization, Current Season : Yes Cathie Peters LPN - 04/14/2021 23:44 EDT Pneumococcal Vaccine Previous Vaccines from Immunization Schedule : No qualifying data available. Pneumonia Immunization Received : Yes Cathie Peters LPN - 04/14/2021 23:44 EDT Order Details Order Detail : N/A Patient Needs Meds Crushed/Liquid : No Cathie Peters LPN - 04/14/2021 23:44 EDT Nutrition History Eating Poorly Due to Decreased Appetite : Yes Unplanned Weight Loss in Past 3-6 Months : Unsure Unplanned Weight Loss Amount : Unsure Malnutrition Screening Tool Total(mal) : 5 Malnutrition Screening Tool Risk Level : Patient at risk Cathie Peters LPN - 04/14/2021 23:44 EDT [place] Suicide Severity Rating Scale (C-SSRS) CSSRS Past Month Wish to be : No CSSRS Past Month Suicidal Thoughts : No CSSRS Lifetime Suicide Behavior : No Suicide Severity Rating Score : 0 Suicide Severity Rating : No Additional Care Required at this time Cathie Peters LPN - 04/14/2021 23:44 EDT Psychosocial History Currently in Unsafe Situation : No Cathie Peters LPN - 04/14/2021 23:44 EDT Sleep Apnea Risk Assmt BiPAP/CPAP Ordered for Home Use : Yes Hx of Obstructive Sleep Apnea Diagnosis : Yes BiPAP/CPAP Used at Home : Yes Age over 50 Years Old : Yes Gender Male : No Cathie Peters LPN - 04/14/2021 23:44 EDT Spiritual/Cultural Needs Anabaptism Preference : Christianity Cathie Peters LPN - 04/14/2021 23:44 EDT Valuables and Belongings Valuables and Belongings : Clothing, Personal devices, Personal items Clothing : Common streetwear Clothing Disposition : Bedside Personal Device Disposition : With patient Personal Devices : Dentures, upper, Dentures, lower Personal Items : Cell phone, Other: phone nursing home social worker Personal Items Disposition : Bedside Cathie Peters LPN - 04/14/2021 23:44 EDT documented in this encounter Plan of Treatment Not on file documented as of this encounter Visit Diagnoses Not on filedocumented in this encounter
--- OUTSIDE RECORDS SUMMARY | 2025-03-01 16:53 | XMS_ITS | Encounter Summary ---
Author Organization [employer] Address [address] [place] [address] Care Team Providers Care Beam Dyer Name Role Phone Unavailable Primary Care Provider Unavailabl e Encounter Details Date Type Department Care Team (Late st Contact Info) Description 04/15/2021 Transcribed Document [facility] [place] [address] ProviderPantera MD [address] [place] [address] [id number] Social History Tobacco Use Types Packs/Day Years Used Date Smoking Tobacco: Never Assessed Comments Unknown Sex and Gender Information Value Date Recorded Sex Assigned at Not on file Legal Sex Female 7:22 PM CDT Gender Identity Not on file Sexual Orientation Not on file documented as of this encounter Miscellaneous Notes * Cerner Conversion Note - Pantera ProviderMD - 04/15/2021 12:13 AM CDT Evaluation, Occupational Therapy Entered On: 04/16/2021 13:12 EDT Performed On: 04/16/2021 11:56 EDT by Isabella Spring OCCUPATIONAL THERAPIST NON-EXEMPT General Information, OT Visit Type, OT : Initial evaluation Patient Orders : Order Date Order Ordering 04/15/2021 00:14 OT Evaluation and Treatment Ordered By: RODRIGO BASURTO DO-INT Active Diagnoses : No Qualifying Diagnoses Therapy Diagnosis, OT : Decreased I with ADLs and functional mobility due to weakness Onset of Problem, OT : 04/16/2021 EDT Admission Date : 04/14/2021 23:14 Co-treated by, OT : Physical Therapist Personal Devices : Personal Devices Dentures, upper, Dentures, lower Assistive Devices : Assistive Devices No Devices Recorded Isabella Spring OCCUPATIONAL THERAPIST NON-EXEMPT - 04/16/2021 13:01 EDT General Status Patient Received Status : Supine in bed, HOB elevated Treatment Start Time : 04/16/2021 11:31 EDT Patient Left Status : Up in chair, Chair alarm activated, RN/PCT informed, Communication board completed, All needs met and within reach RN/PCT Informed Comment : [place] ortiz tx Treatment End Time : 04/16/2021 11:56 EDT Treatment Time : 25 Minute(s) Isabella Spring OCCUPATIONAL THERAPIST NON-EXEMPT - 04/16/2021 13:01 EDT History and Environment, OT Living Situation, Therapy : Home Patient Lives With : Alone Persons Providing Information : Patient Home Setup : One story Stairs : Yes Stair Location(s) : Outside Outside Stairs, Number of Steps : 1 Railing Outside : Yes Isabella Spring OCCUPATIONAL THERAPIST NON-EXEMPT - 04/16/2021 13:01 EDT Prior LOF Bathing, OT : Independent Prior LOF Bed Mobility : Independent Prior LOF Upper Body Dressing, OT : Independent Prior LOF Lower Body Dressing, OT : Independent Prior LOF Toileting : Independent Prior LOF Transfer : Independent Prior LOF Grooming, OT : Independent Prior LOF for IADLs, OT : Independent Isabella Spring OCCUPATIONAL THERAPIST NON-EXEMPT - 04/16/2021 13:01 EDT Prior LOF Assist with ADL Comment : Ambulates without AD. Isabella Spring OCCUPATIONAL THERAPIST NON-EXEMPT - 04/16/2021 13:01 EDT Upper Extremity Upper Extremity Dominance : Right Right UE Active ROM : WFL Right UE Strength : WFL Left UE Active ROM : WFL Left UE Strength : WFL Isabella Spring OCCUPATIONAL THERAPIST NON-EXEMPT - 04/16/2021 13:01 EDT Self Care/Home Management, OT Self Feeding Assist Level, OT : Independent, modified Grooming Assist Level, OT : Supervision or set-up Bathing Assist Level, OT : Assist, moderate Upper Body Dressing Assist Level, OT : Supervision or set-up Lower Body Dressing Assist Level, OT : Assist, maximal Toileting Assist Level : Assist, moderate Toilet Transfer Assist Level : Assist, minimal Isabella Spring OCCUPATIONAL THERAPIST NON-EXEMPT - 04/16/2021 13:01 EDT Functional Mobility Mobility Grid Supine to Sit : Rehab Minimal assistance Sit to Stand : Rehab Minimal assistance Bed to Chair : Rehab Minimal assistance (Comment: x2, RW [Isabella Spring OCCUPATIONAL THERAPIST NON-EXEMPT - 04/16/2021 13:01 EDT] ) Isabella Spring OCCUPATIONAL THERAPIST NON-EXEMPT - 04/16/2021 13:01 EDT Cognition Assessment, OT Orientation : Oriented x 4 Isabella Spring OCCUPATIONAL THERAPIST NON-EXEMPT - 04/16/2021 13:01 EDT Indication Assessment, OT Occupational Therapy Indicated : Yes Problem List, OT : Impaired, bed mobility, Impaired, activities daily living, Impaired, endurance tolerance, Impaired functional mobility, Impaired, standing balance, Impaired, strength, Impaired, transfers Isabella Spring OCCUPATIONAL THERAPIST NON-EXEMPT - 04/16/2021 13:01 EDT Plan of Care, OT OT Tx Plan/Goals Established w Patient : Yes OT Frequency Rehab : Five days per week OT Duration Rehab : Fourteen days OT Treatments Planned : Activities of daily living, Functional mobility training, Safety education, Therapeutic activities, Therapeutic exercises Isabella Spring OCCUPATIONAL THERAPIST NON-EXEMPT - 04/16/2021 13:01 EDT Mcfp Goals, OT Grooming LTG Grid Goal #1 Activity : Grooming Assist : Independent, modified Date to Meet : 04/30/2021 EDT Goal Status : Initial goal Comment : standing at sink Isabella Spring OCCUPATIONAL THERAPIST NON-EXEMPT - 04/16/2021 13:01 EDT Bathing LTG Grid Goal #1 Activity : Bathing Assist : Supervision or set up Date to Meet : 04/30/2021 EDT Goal Status : Initial goal Isabella Spring OCCUPATIONAL THERAPIST NON-EXEMPT - 04/16/2021 13:01 EDT Dressing, Lower Body LTG Grid Goal #1 Activity : Dressing, Lower Body Assist : Supervision or set up Equipment : Long Handled Manager Mining, Sock aid Date to Meet : 04/30/2021 EDT Goal Status : Initial goal Isabella Spring OCCUPATIONAL THERAPIST NON-EXEMPT - 04/16/2021 13:01 EDT Toilet Transfer LTG Grid Goal #1 Activity : Toilet Transfer, Ambulatory Assist : Independent, modified Date to Meet : 04/30/2021 EDT Goal Status : Initial goal Isabella Spring OCCUPATIONAL THERAPIST NON-EXEMPT - 04/16/2021 13:01 EDT Treatment Note Subjective Comment : Patient agreeable to therapy evaluation, stated she was ready to get out of bed. Patient's Response to Treatment : Fair. Pt reported dizziness with change in position. BP checked upon sittin/72. Pt states this was happening at home and had 4 falls in the past week due to the dizziness. Reported 5/10 back pain. Additional Objective Information : Patient transferred supine to sit EOB with min A. Pt required a few minutes seated EOB for dizziness to go away. Max A to don socks due to back pain. Pt stood with min A x2 and transferred with RW to reclining chair, min A x2 for safety due to dizziness. Pt completed grooming tasks seated in reclining chair with setup. Pt then set up with lunch tray and left with all needs within reach. Assessment : Patient would benefit from skilled OT while inpatient to increase strength and activity tolerance for ADLs/functional mobility. Pt lives alone and may require rehab/HH upon discharge. Plan for Treatment : See goals. Isabella Spring OCCUPATIONAL THERAPIST NON-EXEMPT - 04/16/2021 13:01 EDT Pain Assessment Pain Scaled Used : 0-10 Pain scale Pain Score Pre-Intervention : 5 Location : Back Isabella Spring OCCUPATIONAL THERAPIST NON-EXEMZAINA - 04/16/2021 13:01 EDT Image 1 - Images currently included in the form version of this document have not been included in the text rendition version of the form. Anticipated Discharge Needs, OT/PT Anticipated Discharge to : Home, with home health, Unit, rehabilitation Isabella Spring OCCUPATIONAL THERAPIST NON-EXEMPT - 04/16/2021 13:[address] [facility] OT Charges OT Selfcare/Hm Mgmt Ea 15 Min : 1 OT Eval Low Complexity : 1 Isabella Spring OCCUPATIONAL THERAPIST NON-EXEMPT - 04/16/2021 13:01 EDT documented in this encounter Plan of Treatment Not on file documented as of this encounter Visit Diagnoses Not on filedocumented in this encounter
--- OUTSIDE RECORDS SUMMARY | 2025-03-01 16:53 | XMS_ITS | Encounter Summary ---
Author Organization [employer] Address [address] [place] [address] Care Team Providers Care Blueprint Machine Operator Name Role Phone Unavailable Primary Care Provider Unavailabl e Encounter Details Date Type Department Care Team (Late st Contact Info) Description 04/15/2021 Transcribed Document [facility] [place] [facility] [place] [address] ProviderPantera MD [address] [place] [address] Social History Tobacco Use Types Packs/Day [...] AM CDT Pain Assessment Entered On: 04/16/2021 15:22 EDT Performed On: 04/16/2021 13:13 EDT by Celeste Trujillo RN Intervention Information: oxyCODONE Performed by Celeste Trujillo RN on 04/16/2021 12:13:00 EDT oxyCODONE,5mg Oral,Pain (Moderate 4-6) Pain Assessment Pain Assessment : Follow-up assessment Pain Scale Goal : 2 Pain Scale Used : 0-10 Scale Location : Back Celeste Trujillo RN - 04/16/2021 15:21 EDT Pain Scale Intensity : 5 Celeste Trujillo RN - 04/16/2021 15:21 EDT Image 4 - Images currently included in the form version of this document have not been included in the text rendition version of the form. documented in this encounter Plan of Treatment Not on file documented as of this encounter Visit Diagnoses Not on filedocumented in this encounter
--- OUTSIDE RECORDS SUMMARY | 2025-03-01 16:53 | XMS_ITS | Encounter Summary ---
Author Organization [employer] Address [address] [place] [address] Care Team Providers Care Policy Advisor Name Role Phone Unavailable Primary Care Provider Unavailabl e Encounter Details Date Type Department Care Team (Late st Contact Info) Description 04/15/2021 Transcribed Document [facility] [place] [address] ProviderPantera MD [address] [place] [address] Social History Tobacco Use Types Packs/Day [...] 12:43 AM CDT Pain Assessment Entered On: 04/17/2021 20:13 EDT Performed On: 04/17/2021 9:11 EDT by Consuelo Yuan Rn Intervention Information: acetaminophen Performed by Consuelo Yuan Rn on 04/17/2021 08:11:00 EDT acetaminophen,650mg Oral,Pain (Mild 1-3) Pain Assessment Pain Assessment : Follow-up assessment Pain Scale Goal : 2 Pain Scale Used : 0-10 Scale Consuelo Yuan Rn - 04/17/2021 20:13 EDT Pain Scale Intensity : 1 Consuelo Yuan Rn - 04/17/2021 20:13 EDT Image 4 - Images currently included in the form version of this document have not been included in the text rendition version of the form. Electronically signed by Olga Gonsalves Conversion Agricultural Economics Teacher Elham at 01/04/2023 7:51 PM CDT documented in this encounter Plan of Treatment Not on file documented as of this encounter Visit Diagnoses Not on filedocumented in this encounter
--- OUTSIDE RECORDS SUMMARY | 2025-03-01 16:53 | XMS_ITS | Encounter Summary ---
Author Organization [facility] Address [address] [place] [address] Care Team Providers Care Dewaterer Operator Name Role Phone Unavailable Primary Care Provider Unavailabl e Encounter Details Date Type Department Care Team (Late st Contact Info) Description 04/15/2021 Transcribed Document [facility] [place] [facility] [place] [address] ProviderPantera MD [address] [place] [address] [id number] Social History Tobacco Use Types Packs/Day Years [...] 04/15/2021 11:42 AM CDT Attempt to Treat, PT Entered On: 04/15/2021 12:04 EDT Performed On: 04/15/2021 11:42 EDT by ALLEGRA WOODARD PT Attempt to Treat Unable to Treat Due To : Patient Unavailable Inability to Treat Comment : pt getting ready to leave unit for EGD and Colonoscopy will follow Notification : RN/PTx/OTx ALLEGRA WOODARD, PT - 04/15/2021 12:03 EDT Electronically signed by [facility] Conversion Tire Building Supervisor Cerner at 01/02/2023 6:03 PM CDT documented in this encounter Plan of Treatment Not on file documented as of this encounter Visit Diagnoses Not on filedocumented in this encounter
--- OUTSIDE RECORDS SUMMARY | 2025-03-01 16:53 | XMS_ITS | Encounter Summary ---
Author Organization [employer] Address [address] [place] [address] Care Team Providers Care Microbiology Laboratory Manager Name Role Phone Unavailable Primary Care Provider Unavailabl e Encounter Details Date Type Department Care Team (Late st Contact Info) Description 04/14/2021 Transcribed Document [facility] [place] [facility] [place] [address] ProviderPantera MD [address] [place] [address] Social History Tobacco Use Types Packs/Day Years Used Date Smoking Tobacco: Never Assessed Comments Unknown Sex and Gender Information Value Date Recorded Sex Assigned at Not on file Legal Sex Female 7:22 PM CDT Gender Identity Not on file Sexual Orientation Not on file documented as of this encounter Miscellaneous Notes * Cerner Conversion Note - Pantera ProviderMD - 04/14/2021 11:53 PM CDT Nutrition Assessment Entered On: 04/15/2021 14:10 EDT Performed On: 04/15/2021 14:06 EDT by Jesica Johnston Dietitikiera Nutrition Assessment Nutrition Assessment Reason : Automatic referral Jesica Johnston Dietitian - 04/15/2021 14:06 EDT Current Nutrition Regimen Comment : 04/15: Consult received for MST > 2 (due to poor PO intakes and unsure wt loss). Pt admitted here with GIB s/p EGD and colonoscopy today; found to have gastritis. Bx taken. Pt denies wt loss or poor appetite. No muscle/fat loss noted. Pt remains NPO following procedure. Dx: 75 y/o F admitted 04/14 from OSH with gastritis PMH: HTN, HL, COPD, hypothyroidism, TENA, esophageal stricture, DM, CHF, tobacco use, PE, CPAP at night, bipolar, depression GI: RT (200), (+) BS Skin: WNL Labs: Glu 125 (FSBS 117, 119, 101), BUN 30, Cr 1.6 Meds: pepcid, NaCl Diet: NPO Ht: 165.1 cm Wt: 88.2 kg (admit) IBW: 56.8 kg (155%) BMI: 32.3 Jesica Johnston Dietitian - 04/15/2021 15:52 EDT Nutrition Diagnoses Oral or Nutrition Support Intake : Inadequate oral intake Oral or Nutr Support Intake Related To : procedure Oral or Nutr Support Intake Evidenced by : NPO status Oral or Nutrition Support Intake Status : Active Jesica Johnston Dietitian - 04/15/2021 15:52 EDT Nutrition Interventions Meals and Snacks Other Comment : Pt is NPO Jesica Johnston Dietitian - 04/15/2021 15:52 EDT Monitoring/Evaluation Weight Status : Weight Maintanence Gastrointestinal Function : Bowel Function Jesica Johnston Dietitian - 04/15/2021 15:52 EDT Nutrition Recommendations Dietitian Recommendations : 1. Diet per MD (rec GI Soft with ONS prn). Goal: initiate PO; intakes >50% 2. Monitor glucose Goal: FSBS 80-120 3. Monitor wt once/week Goal: no significant wt loss Risk- High Jesica Johnston Dietitian - 04/15/2021 15:52 EDT documented in this encounter Plan of Treatment Not on file documented as of this encounter Visit Diagnoses Not on filedocumented in this encounter
--- OUTSIDE RECORDS SUMMARY | 2025-03-01 16:53 | XMS_ITS | Encounter Summary ---
Author Organization [employer] Address [address] [place] [id number] Care Team Providers Care Telegraph Service Clerk Name Role Phone Unavailable Primary Care Provider Unavailabl e Encounter Details Date Type Department Care Team (Late st Contact Info) Description 04/15/2021 Transcribed Document [facility] [place] Family Medicine [facility] [place] [address] [address] Provider, MD Pantera [address] [place] [id number] Social History Tobacco Use Types Packs/Day Years Used Date Smoking Tobacco: Never Assessed Comments Unknown Sex and Gender Information Value Date Recorded Sex Assigned at Not on file Legal Sex Female 7:22 PM CDT Gender Identity Not on file Sexual Orientation Not on file documented as of this encounter Miscellaneous Notes * Cerner Conversion Note - Historical ProviderMD - 04/15/2021 2:00 PM CDT WALKER Barbara PreOp Summary Primary Physician: NIKHIL RINCON MD Finalized Date/Time: 04/15/21 12:09:37 Pt. Name: YANCY SINDY Landa /Sex: 1945 Female Med Rec #: [id number] Physician: RODRIGO BASURTO DO-INT Financial #: [id number] Pt. Type: I Room/Bed: [facility]/ Admit/Disch: 04/14/21 23:14:00 - Institution: [facility] Barbara PreOp Case Times Entry 1 In Preop 04/15/21 11:51:00 Ready for Holding n/a Room Patient Ready for 04/15/21 12:09:00 Surgery Patient Out of Preop 04/15/21 12:09:00 Patient Out of n/a Holding Room Last Modified By: Luz Elena Lucas RN 04/15/21 12:09:35 Finalized By: Luz Elena Lucas RN Document Signatures Signed By: Luz Elena Lucas RN 04/15/21 12:09 documented in this encounter Plan of Treatment Not on file documented as of this encounter Visit Diagnoses Not on filedocumented in this encounter
--- OUTSIDE RECORDS SUMMARY | 2025-03-01 16:53 | XMS_ITS | Encounter Summary ---
Author Organization [employer] Address [address] [place] [address] Care Team Providers Care Valving Machine Operator Name Role Phone Unavailable Primary Care Provider Unavailabl e Encounter Details Date Type Department Care Team (Late st Contact Info) Description 04/15/2021 Transcribed Document [facility] [place] [facility] [place] [address] ProviderPantera MD [address] [place] [id number] Social History Tobacco Use Types Packs/Day [...] Historical ProviderMD - 04/15/2021 12:[address] [facility] Endo IntraOp Summary Primary Physician: NIKHIL RINCON MD Finalized Date/Time: 04/15/21 13:26:28 Pt. Name: YANCY SINDY Landa /Sex: 1945 Female Med Rec #: [id number] Physician: RODRIGO BASURTO DO-INT Financial #: [id number] Pt. Type: I Room/Bed: [facility]/ Admit/Disch: 04/14/21 23:14:00 - Institution: [facility] Endo - Case Attendance Entry 1 Entry 2 Entry 3 Case Attendee NIKHIL RINCON MD CELLAROSI-TYLER AN Springate, Samantha, RN MD-ANS Role Performed Surgeon/Proceduralist, Anesthesiologist Operations Business Partner, First First Time In 04/15/21 12:42:00 04/15/21 12:33:00 04/15/21 12:33:00 Time Out 08/02/21 13:28:00 04/15/21 12:51:00 04/15/21 13:28:00 Procedure Esophagogastroduodenosco Esophagogastroduodenosco Esophagogastroduodenosco py, Colonoscopy, py, Colonoscopy, py, Colonoscopy, Duodenal Biopsy, Duodenal Biopsy, Duodenal Biopsy, Gastric Biopsy, Colon Gastric Biopsy, Colon Gastric Biopsy, Colon Biopsy Biopsy Biopsy Other Attendee Superficial Wound Closed By: Last Modified By: Christine Urena RN Springate, Samantha, RN Springate, Samantha, RN 04/15/21 13:25:50 04/15/21 13:25:50 04/15/21 13:25:50 Entry 4 Entry 5 Case Attendee HERIBERTO RUIZ HEATHER, MD-ANS Role Performed Scrub, First Anesthesiologist Time In 04/15/21 12:33:00 04/15/21 12:50:00 Time Out 04/15/21 13:28:00 04/15/21 13:28:00 Procedure Esophagogastroduodenosco Esophagogastroduodenosco py, Colonoscopy, py, Colonoscopy, Duodenal Biopsy, Duodenal Biopsy, Gastric Biopsy, Colon Gastric Biopsy, Colon Biopsy Biopsy Other Attendee Superficial Wound Closed By: Last Modified By: Christine Urena RN Springate, Samantha, RN 04/15/21 13:25:50 04/15/21 13:25:50 [facility] Endo - Case Attendance Audit 04/15/21 13:25:50 Puttier: [id number] Modifier: [id number] 1 <+> Time Out 1 <*> Procedure Esophagogastroduodenoscopy, Colonoscopy, Duodenal Biopsy, Gastric Biopsy, Colon Biopsy 2 <*> Procedure Esophagogastroduodenoscopy, Colonoscopy, Duodenal Biopsy, Gastric Biopsy, Colon Biopsy 3 <+> Time Out 3 <*> Procedure Esophagogastroduodenoscopy, Colonoscopy, Duodenal Biopsy, Gastric Biopsy, Colon Biopsy 4 <+> Time Out 4 <*> Procedure Esophagogastroduodenoscopy, Colonoscopy, Duodenal Biopsy, Gastric Biopsy, Colon Biopsy 5 <+> Time Out 5 <*> Procedure Esophagogastroduodenoscopy, Colonoscopy, Duodenal Biopsy, Gastric Biopsy, Colon Biopsy 04/15/21 13:19:13 Puttier: [id number] Modifier: [id number] 1 <*> Procedure Esophagogastroduodenoscopy, Colonoscopy, Duodenal Biopsy, Gastric Biopsy 2 <*> Procedure Esophagogastroduodenoscopy, Colonoscopy, Duodenal Biopsy, Gastric Biopsy 3 <*> Procedure Esophagogastroduodenoscopy, Colonoscopy, Duodenal Biopsy, Gastric Biopsy 4 <*> Procedure Esophagogastroduodenoscopy, Colonoscopy, Duodenal Biopsy, Gastric Biopsy 5 <*> Procedure Esophagogastroduodenoscopy, Colonoscopy, Duodenal Biopsy, Gastric Biopsy 04/15/21 12:54:09 Puttier: [id number] Modifier: [id number] 1 <*> Procedure Esophagogastroduodenoscopy, Colonoscopy 2 <*> Procedure Esophagogastroduodenoscopy, Colonoscopy 3 <*> Procedure Esophagogastroduodenoscopy, Colonoscopy 4 <*> Procedure Esophagogastroduodenoscopy, Colonoscopy 5 <*> Procedure Esophagogastroduodenoscopy, Colonoscopy 04/15/21 12:51:35 Puttier: [id number] Modifier: [id number] 2 <+> Time Out 2 <*> Procedure Esophagogastroduodenoscopy, Colonoscopy 04/15/21 12:51:14 Puttier: [id number] Modifier: [id number] <+> 5 Case Attendee <+> 5 Role Performed <+> 5 Time In <+> 5 Procedure 04/15/21 12:42:43 Puttier: [id number] Modifier: [id number] 1 <*> Time In 04/15/21 12:33:00 1 <*> Procedure Esophagogastroduodenoscopy, Colonoscopy <+> 2 Procedure <+> 3 Procedure <+> 4 Procedure 04/15/21 12:40:59 Puttier: [id number] Modifier: [id number] 1 <*> Procedure Esophagogastroduodenoscopy, Colonoscopy <+> 2 Time In <+> 3 Time In <+> 4 Time In 04/15/21 12:35:05 Puttier: [id number] Modifier: [id number] 1 <+> Time In 1 <*> Procedure Esophagogastroduodenoscopy, Colonoscopy <+> 2 Case Attendee <+> 2 Role Performed <+> 3 Case Attendee <+> 3 Role Performed <+> 4 Case Attendee <+> [address] [facility] Endo Case times Entry 1 Patient In Room Time 04/15/21 12:33:00 Out Room Time 04/15/21 13:28:00 Anesthesia Start Time 04/15/21 12:33:00 Stop Time 04/15/21 13:28:00 Surgery / Procedure Times Start Time 04/15/21 12:50:00 Stop Time 04/15/21 13:25:00 Last Modified By: Christine Urena RN 04/15/21 13:25:49 [facility] Endo - Case times Audit 04/15/21 13:25:49 Puttier: [id number] Modifier: [id number] <+> 1 Out Room Time <+> 1 Stop Time <+> 1 Stop Time 04/15/21 12:50:27 Puttier: [id number] Modifier: [id number] <+> [address] [facility] Endo - Cultures and Spec Summary Entry 1 Cultrures and Specimens Specimen Ordered: Yes Test(s) Routine/Path-Lab Requested/Final Disposition Last Modified By: Christine Urena RN 04/15/21 12:54:15 [facility] Endo - Delays Entry 1 Delay Reason Other Duration 0 Minute(s) Last Modified By: Christine Urena RN 04/15/21 12:35:09 [facility] Endo - Departure from OR Entry 1 Integumentary Assessment Integumentary WDL Assessment WDL Transfer/Handoff Transfer to PACU Phase I Post-op Transport Stretcher/Gurney Via Patient Transport Christine Urena, Accompanied by RNELDA MARIA, MD-ANS Last Modified By: Christine Urena RN 04/15/21 12:35:17 [facility] Endo - Endoscopy Details Entry 1 Abdomen Procedure Soft, Non-Tender Assessment Procedure Abdomen 04/15/21 12:33:00 Assessment D/T Radio Frequency Ablation Abdominal Pressure Last Modified By: Christine Urena RN 04/15/21 12:35:25 [facility] Endo - Fire Risk Assessment Entry 1 Fire Info Surgical Site or 1- Yes Incision Above the Xyphoid Open O2 Source 1- Yes (Mask or Cannula) Available Ignition 1- Yes (ESU, Laser, Light Source) Fire Risk 3 Assessment Score Fire Score Fire Risk Yes Assessment Complete Fire Risk Christine Urena RN Assessment Verified By Fire Risk 04/15/21 12:33:00 Assessment Verified Date/Time Fire Risk High Risk Protocol Yes Implemented Standard Fire Yes Safety Precautions Followed Last Modified By: Christine Urena RN 04/15/21 12:35:31 [facility] Endo - General Case Bean Sprout Grower 1 Case Information OR Endo 03 [facility] Case Level 1 Room Verified Yes Wound Class III - Contaminated Specialty Gastroenterology Anesthesia Type MAC ASA Class 4 Diagnosis Preop Diagnosis GI Bleed/Diarrhea Postop Same As Preop No Postop Diagnosis gastritis Last Modified By: Christine Urena RN 04/15/21 12:55:07 [facility] Endo - General Case Data Audit 04/15/21 12:55:07 Puttier: [id number] Modifier: [id number] 1 <+> Postop Same As Preop 1 <*> Preop Diagnosis GI Bleed 1 <+> Postop Diagnosis [facility] Endo - Intraoperative Assessment Entry 1 Valid History / Yes Physical in Chart Preoperative Yes Checklist Reviewed/Evaluated Patient is Latex No Sensitive Level of WDL Consciousness (WDL = Alert, Oriented to Person, Place, and Time) Last Modified By: Christine Urena RN 04/15/21 12:40:25 [facility] Endo - Intraoperative Equipment Entry 1 Equipment Intraop Monitoring Electrocardiogram Three lead placement (ECG) Electrode Placement Blood Pressure Arm, left upper Location Pulse Oximeter Hand, right Probe Site Antiembolic Devices Scopes Flexible Endoscopes Gastroscope, Used Colonoscope, Peds Scope Serial D, N Number/Identificatio n Number Photo/Video Documentation Photo Yes Video No Last Modified By: Christine Urena RN 04/15/21 12:40:39 [facility] Endo - Patient Positioning Entry 1 Procedure Esophagogastroduodenosco py, Duodenal Biopsy, Gastric Biopsy, Colon Biopsy Body Position Lateral, right side up Left Arm Position Resting at side Right Arm Position Resting at side Left Leg Position Other Right Leg Position Other Position Comments Right leg over left leg, uncrossed Feet Uncrossed Yes Pressure Points Yes Checked Positioned By TYLER SCHROEDER MD-ANS Position Verified Positioning Yes Verified by Surgeon Last Modified By: Christine Urena RN 04/15/21 13:19:14 [facility] Endo - Patient Positioning Audit 04/15/21 13:19:14 Puttier: [id number] Modifier: [id number] 1 <*> Procedure Esophagogastroduodenoscopy, Duodenal Biopsy, Gastric Biopsy 04/15/21 12:54:10 Puttier: [id number] Modifier: [id number] 1 <*> Procedure Esophagogastroduodenoscopy [facility] Endo - Sign In Entry 1 Patient, Site, Yes Procedure Identified Surgical Consent Yes Confirmed Surgical Site N/A Marked by person performing procedure Airway Hypothermia Risk No Warming Measures No Taken Last Modified By: Christine Urena RN 04/15/21 12:40:56 [facility] Endo - Sign Out Entry 1 RN Confirmation Surgical Yes Procedure(s) Identified Instrument, Sponge N/A and Sharps Counts Correct/Documented Equipment Problems N/A Documented Specimen Labeled Yes Correctly Urinary Catheter N/A Documented in IView Safety Checklist Yes Elements Complete? RN Sign Out Christine Urena RN Signature RN Sign Out 04/15/21 13:28:00 Signature Date/Time Plan of Care Outcome - Fire Risk OUTCOME STATEMENT: Goal met Patient is free from injury related to surgical fire Plan of Care Outcome - Pt Positioning OUTCOME STATEMENT: Goal met Absence of signs and symptoms of positioning injury. Plan of Care Outcome - Skin Prep OUTCOME STATEMENT: Goal met Intraoperative care is consistent with measures to prevent infection Plan of Care Outcome - Xray/Images OUTCOME STATEMENT: N/A Absence of observable signs or symptoms of radiation injury Plan of Care Outcome - Counts OUTCOME STATEMENT: N/A Absence of signs and symptoms of injury related to extraneous objects Last Modified By: Christine Urena RN 04/15/21 13:26:19 [facility] Endo - Surgical Procedures Entry 1 Entry 2 Entry 3 Procedure Esophagogastroduodenosco Colonoscopy Duodenal Biopsy py Modifiers Additional Procedure Description Primary Procedure Yes No No Primary Surgeon NIKHIL RINCON MD ASLAM, BILAL, MD ASLAM, BILAL, MD Start 04/15/21 12:50:00 04/15/21 13:07:00 04/15/21 12:50:00 Stop 04/15/21 12:58:00 04/15/21 13:25:00 04/15/21 13:25:00 Physician States 04/15/21 13:16:00 Cecum Reached Anesthesia Type MAC MAC MAC Specialty Gastroenterology Gastroenterology Gastroenterology Wound Class II - Clean-Contaminated III - Contaminated II - Clean-Contaminated Last Modified By: Christine Urena RN Springate, Samantha, RN Springate, Samantha, RN 04/15/21 13:08:07 04/15/21 13:26:09 04/15/21 13:26:09 Entry 4 Entry 5 Procedure Gastric Biopsy Colon Biopsy Modifiers Additional Left and Right colon bx Procedure Description Primary Procedure No No Primary Surgeon NIKHIL RINCON MD ASLAM, BILAL, MD Start 04/15/21 12:50:00 04/15/21 13:07:00 Stop 04/15/21 13:25:00 04/15/21 13:25:00 Physician States 04/15/21 13:16:00 Cecum Reached Anesthesia Type [facility] Specialty Gastroenterology Gastroenterology Wound Class II - Clean-Contaminated III - Contaminated Last Modified By: Christine Urena RN Springate, Samantha, RN 04/15/21 13:26:09 04/15/21 13:26:09 [facility] Endo - Surgical Procedures Audit 04/15/21 13:26:09 Puttier: [id number] Modifier: [id number] <+> 2 Stop <+> 3 Stop <+> 4 Stop <+> 5 Stop 04/15/21 13:21:39 Puttier: [id number] Modifier: [id number] 5 <*> Procedure Colon Biopsy 5 <*> Additional Procedure Description Right colon bx 04/15/21 13:19:10 Puttier: [id number] Modifier: [id number] 2 <*> Procedure Colonoscopy 2 <+> Physician States Cecum Reached <+> 5 Procedure <+> 5 Primary Procedure <+> 5 Primary Surgeon <+> 5 Specialty <+> 5 Start <+> 5 Wound Class <+> 5 Anesthesia Type <+> 5 Additional Procedure Description <+> 5 Physician States Cecum Reached 04/15/21 13:08:07 Puttier: [id number] Modifier: [id number] 1 <*> Procedure Esophagogastroduodenoscopy 1 <+> Stop 2 <*> Procedure Colonoscopy 2 <*> Start 04/15/21 12:50:00 04/15/21 12:54:05 Puttier: [id number] Modifier: [id number] <+> 3 Procedure <+> 3 Primary Procedure <+> 3 Primary Surgeon <+> 3 Specialty <+> 3 Start <+> 3 Wound Class <+> 3 Anesthesia Type <+> 4 Procedure <+> 4 Primary Procedure <+> 4 Primary Surgeon <+> 4 Specialty <+> 4 Start <+> 4 Wound Class <+> 4 Anesthesia Type 04/15/21 12:51:27 Puttier: [id number] Modifier: [id number] <+> 1 Start <+> 2 Start 04/15/21 12:41:16 Puttier: [id number] Modifier: [id number] 1 <*> Procedure Esophagogastroduodenoscopy 1 <+> Specialty 2 <*> Procedure Colonoscopy 2 <+> Specialty [facility] Endo - Time Out Entry 1 Procedure to be Esophagogastroduodenosco Performed py, Colonoscopy, Duodenal Biopsy, Gastric Biopsy, Colon Biopsy Time Out Time Out Pause Time 04/15/21 12:44:00 All activity Yes suspended (unless life threatening emergency) Team Verbally Correct patient Confirms Information identity, Consent form is present and accurate, Agreement on the procedure to be done, Correct patient position, Performed before each procedure if multiple procedures, Reconcile problems if responses among team members differ Antibiotic N/A Prophylaxis Administered Or In Progress Within the Last 60 Minutes Beta Susan N/A Administered Venous N/A Thromboembolism Prophylaxis Required Anticipated Critical Events Surgeon None expected Last Modified By: Christine Urena RN 04/15/21 13:19:15 [facility] Endo - Time Out Audit 04/15/21 13:19:15 Puttier: [id number] Modifier: [id number] 1 <*> Procedure to be Performed Esophagogastroduodenoscopy, Colonoscopy, Duodenal Biopsy, Gastric Biopsy 04/15/21 12:54:10 Puttier: [id number] Modifier: [id number] 1 <*> Procedure to be Performed Esophagogastroduodenoscopy, Colonoscopy Case Comments <None> Finalized By: Christine Urena RN Document Signatures Signed By: Christine Urena RN 04/15/21 13:26 Electronically signed by [facility] Conversion Layout Designer Cerner at 01/02/2023 6:26 PM CDT documented in this encounter Plan of Treatment Not on file documented as of this encounter Visit Diagnoses Not on filedocumented in this encounter
--- OUTSIDE RECORDS SUMMARY | 2025-03-01 16:54 | XMS_ITS | Patient Health Record ---
Author Organization [facility] Address [address] [facility] [address] [place] [address] Care Team Providers Care Music Library Assistant Name Role Phone Claire Ramirez Primary Care Provider Delvin Newton Unavailable Unavailable Sheryl Velasquez Unavailable [phone] Migration, Provider Unavailable Unavailable Allergies Allergen (clinical drug ingredient) Drug/Non Drug Allergy documented on EMR Reaction Allergy Type Onset Date Status ARIPIPRAZOLE ANALOGU ES (uncoded) itching Allergy Active aripiprazole Abilify itching Drug Allergy Acti ve aripiprazole ARIPiprazole itching Drug Allergy A ctive Results Component Value Reference Range Notes Ankle/Brachial Index--Segmen hanna BPs Reviewed date:01/20/2025 03:12:43 PM Interpretation: Performing Lab: Notes/Report: Urinalysis Reviewed date:12/26/2024 06:23:01 PM Interpretation: Performing Lab: Notes/Report: Color/Clarity yellow Leuk trace Nitrite pos Urobili 0.2 Protein >=300 pH 5.5 Blood mod Sp. Gr. >=1.030 Ketone trace Bili small Glucose neg BASIC METABOLIC PANEL (64011 ) Reviewed date:01/12/2025 03:27:05 PM Interpretation: Performing Lab:CB, [facility]-[address], [place] RushPgbeQF[address] David Calles Notes/Report: NON-FASTING; NON-FASTING; NON-FASTING GLUCOSE [...] 33 20-32 mmol/L CALCIUM 9.6 8.6-10.4 mg/dL H-MALBCREA Reviewed date:10/14/2024 10:29:15 AM Interpretation: Performing Lab: Notes/Report: Units: mg/g creat Normal: 0 - 29 Moderately Increased: 30 - 300 Severely Increased: >300 UCREAT 98 Not Estab. mg/dL Random urine reference range not established. 24 hour urine samples recommended. MICROALB 62.700 0-16.7 mg/L MALBCREAT 63.9 H-TVITD Reviewed date:10/14/2024 10:29:15 AM Interpretation: Performing Lab: Notes/Report: TVITD 28.9 30-100 ng/mL Deficient <20 ng/mL Insufficient 20-30 ng/mL Sufficient 30-100 ng/mL Potential Toxicity >100 ng/mL M-Thyroid Stimulating Hormon e Reviewed date:10/14/2024 10:29:15 AM Interpretation: Performing Lab: Notes/Report: TSH 0.04 0.465-4.68 uIU/mL M-Lipid Panel Reviewed date:10/14/2024 10:29:15 AM Interpretation: Performing Lab: Notes/Report: Patient Fasting? N TRIG 208 30-150 mg/dl CHOL 122 140-200 mg/dl DLDL 51.61 100-129 mg/dL VLDL 42 0-40 mg/dL HDL 46 40-60 mg/dl CHLHDL 2.7 1-3.5 M-Hemoglobin A1C Reviewed date:10/14/2024 10:29:15 AM Interpretation: Performing Lab: Notes/Report: HGBA1C 6.5 4.0-6.0 % < 6% Non-Diabetic Level < 7% Controlled Diabetic Level > 8% Poorly Controlled Diabetic Level M-Comprehensive Metabolic Pa amanda Reviewed date:10/14/2024 10:29:15 AM Interpretation: Performing Lab: Notes/Report: NA 141 136-145 mmol/L K 5.2 3.5-5.1 mmoL/L CL 101 98-107 mmol/L CO2 30 22.0-30.0 mmol/L GAP 15.2 5-15 mEq/L BUN 19 7-17 mg/dl CREATT 0.80 0.52-1.04 mg/dl GFRAA 84 >60 ML/MIN EGFR 70 >60 ml/min GLU 112 74-100 mg/dl CA 9.6 8.4-10.2 mg/dl BILIT 0.3 0.2-1.3 mg/dl AST 27 14-36 U/L ALT 19 12-78 U/L TP 6.4 6.3-8.2 g/dl ALB 4.0 3.5-5.0 g/dl GLOB 2.4 1.3-3.2 g/dL AGRATIO 1.7 1.1-1.8 ALP 52 38-126 U/L M-Complete Blood Count Auto Diff Reviewed date:10/14/2024 10:29:15 AM Interpretation: Performing Lab: Notes/Report: WBC 11.7 4.8-10.8 K/mm3 RBC 4.39 4.20-5.40 M/mm3 HGB 13.7 12.2-16.2 g/dL HCT 44.7 37.0-47.0 % MCV 101.8 81-99 fl MCH 31.2 27.0-31.2 pg MCHC 30.6 31.8-35.4 g/dL RDW 12.1 11.5-17.5 % PLT 304 142-424 K/mm3 MPV 9.6 7.4-10.4 fl NE% 47.9 37.0-80.0 % LY% 40.9 10-50 % MO% 7.1 1.7-9.3 % EO% 2.9 0.1-12.0 % BA% 0.9 0.1-2.0 % NE# 5.6 1.8-7.8 K/mm3 LY# 4.8 0.7-4.5 K/mm3 MO# 0.8 0.1-1.0 K/mm3 EO# 0.3 0.0-0.4 K/mm3 BA# 0.1 0-0.2 K/mm3 COMPREHENSIVE METABOLIC PANE L (98755) Reviewed date:04/19/2024 01:08:52 PM Interpretation: Performing Lab:[facility] [facility]teSum[facility], [facility] HospitalMeurPL[address] David Calles Notes/Report: NON-FASTING; NON-FASTING; NON-FASTING; NON-FASTING GLUCOSE 117 65-99 mg/dL Fasting reference interval For someone without known diabetes, a glucose value between 100 and 125 mg/dL is consistent with prediabetes and should be confirmed with a follow-up test. UREA NITROGEN (BUN) 21 7-25 mg/dL CREATININE 0.86 0.60-1.00 mg/dL EGFR 70 > OR = 60 mL/min/1.73m2 BUN/CREATININE RATIO SEE NOTE: 6-22 (calc) Not Reported: BUN and Creatinine are within reference range. SODIUM 141 135-146 mmol/L POTASSIUM 5.3 3.5-5.3 mmol/L CHLORIDE 102 98-110 mmol/L CARBON DIOXIDE 29 20-32 mmol/L CALCIUM 9.8 8.6-10.4 mg/dL PROTEIN, TOTAL 6.9 6.1-8.1 g/dL ALBUMIN 4.3 3.6-5.1 g/dL GLOBULIN 2.6 1.9-3.7 g/dL (calc) ALBUMIN/GLOBULIN RATIO 1.7 1.0-2.5 (calc) BILIRUBIN, TOTAL 0.4 0.2-1.2 mg/dL ALKALINE PHOSPHATASE 35 37-153 U/L AST 13 10-35 U/L ALT 8 6-29 U/L CBC (INCLUDES DIFF/PLT) (639 9) Reviewed date:04/19/2024 01:08:53 PM Interpretation: Performing Lab:[facility] [address]tel [facility], [facility] HospitalEobjYA[address] David Calles Notes/Report: NON-FASTING; NON-FASTING; NON-FASTING; NON-FASTING WHITE BLOOD CELL COUNT 8.3 3.8-10.8 Thousand/ uL RED BLOOD CELL COUNT 4.40 3.80-5.10 Million/uL HEMOGLOBIN 13.6 11.7-15.5 g/dL HEMATOCRIT 43.0 35.0-45.0 % MCV 97.7 80.0-100.0 fL MCH 30.9 27.0-33.0 pg MCHC 31.6 32.0-36.0 g/dL RDW 13.3 11.0-15.0 % PLATELET COUNT 256 140-400 Thousand/uL MPV 9.8 7.5-12.5 fL ABSOLUTE NEUTROPHILS 3561 8198-6200 cells/uL ABSOLUTE LYMPHOCYTES 3884 850-3900 cells/uL ABSOLUTE MONOCYTES 523 200-950 cells/uL ABSOLUTE EOSINOPHILS 249 15-500 cells/uL ABSOLUTE BASOPHILS 83 0-200 cells/uL NEUTROPHILS 42.9 LYMPHOCYTES 46.8 MONOCYTES 6.3 EOSINOPHILS 3.0 BASOPHILS 1.0 HEMOGLOBIN A1c (496) Reviewed date:01/12/2025 03:27:05 PM Interpretation: Performing Lab:[facility] [employer], MediaBrixJmamUD[address] David Calles Notes/Report: NON-FASTING; NON-FASTING; NON-FASTING HEMOGLOBIN A1c 7.0 <5.7 % test. For someone with known diabetes, a value <7% indicates that their diabetes is well controlled and a value greater than or equal to 7% indicates suboptimal control. A1c targets should be individualized based on duration of diabetes, age, comorbid conditions, and other considerations. Currently, no consensus exists regarding use of hemoglobin A1c for diagnosis of diabetes for children. For someone without known diabetes, a hemoglobin A1c value of 6.5% or greater indicates that they may have diabetes and this should be confirmed with a follow-up FERRITIN (457) Reviewed date:04/19/2024 01:08:53 PM Interpretation: Performing Lab:[facility] [employer], MediaBrixDchlTY[address] David Calles Notes/Report: NON-FASTING; NON-FASTING; NON-FASTING; NON-FASTING FERRITIN 88 16-288 ng/mL TSH W/REFLEX TO FT4 (06914) Reviewed date:01/12/2025 03:27:05 PM Interpretation: Performing Lab:[facility], MediaBrixEtbsHS[address] David Calles Notes/Report: NON-FASTING; NON-FASTING; NON-FASTING TSH W/REFLEX TO FT4 1.05 0.40-4.50 mIU/L VITAMIN D,25-OH,TOTAL,IA (17 306) Reviewed date:04/19/2024 01:08:53 PM Interpretation: Performing Lab:[facility] [facility]om[address] CorporationteUPMC [facility] David Calles Notes/Report: NON-FASTING; NON-FASTING; NON-FASTING; NON-FASTING VITAMIN D,25-OH,TOTAL,IA 42 30-100 ng/mL Vitamin D Status 25-OH Vitamin D: Deficiency: <20 ng/mL Insufficiency: 20 - 29 ng/mL Optimal: > or = 30 ng/mL For 25-OH Vitamin D testing on patients on D2-supplementation and patients for whom quantitation of D2 and D3 fractions is required, the QuestAssureD(TM) 25-OH VIT D, (D2,D3), LC/MS/MS is recommended: order code 21637 (patients >2yrs). See Note 1 Note 1 For additional information, please refer to http://education.PinchPoint/faq/YHN353 (This link is being provided for informational/ educational purposes only.) CULTURE, URINE, ROUTINE (395 ) Reviewed date:01/12/2025 03:27:05 PM Interpretation: Performing Lab:[facility]ale13[address] [facility]BitsSum[facility], [facility] HospitalMhtlSG[address] David Calles Notes/Report: NON-FASTING; NON-FASTING; NON-FASTING CULTURE, URINE, ROUTINE SEE NOTE E.coli COMMENT: Additional non-predominating organism(s) isolated. These organisms, commonly found on external and internal genitalia, are considered colonizers. No further testing performed. CULTURE, URINE, ROUTINE Micro Number: [id number] Test Status: Final Specimen Source: Urine, clean catch Specimen Quality: Adequate Result: 10,000-49,000 CFU/mL of Escherichia coli INT BERENICE AMOX/CLAVULANATE S 4 AMP/SULBACTAM I [...] cefdinir, cefpodoxime, cefprozil, cefuroxime, cephalexin and loracarbef. DEXA Hip and Spine - Screeni ng Reviewed date:01/20/2025 03:12:44 PM Interpretation: Performing Lab: Notes/Report: Mammogram : Bilateral Reviewed date:01/23/2025 12:32:30 PM Interpretation: Performing Lab: Notes/Report: CT Scan : Chest, Lung Cancer Screening Reviewed date:01/20/2025 03:12:44 PM Interpretation: Performing Lab: Notes/Report: Reason For Referral Reason Mammogram DEXA sca n Screening CT Chest Diagnosis 1 Medicare annual well ness visit, subsequent (Z00.00) Referral Organization [facility] Referring Provider First Name Claire Referring Provider Last Name Ashley Referring Provider [facility]ice Referred Organization [facility] Referred Address [address] [place] [phone], Referred Provider Specialty Diagnostic R adiology General Notes Estefani Huang 2024 03:36:01 PM >sent to [facility] to schedule, Estefani Huang 10/07/2024 04:27:59 PM >checked [facility] Referral Priority Routine Referral Appointment Date 10/25/2024 Reason Bilat lower extremit y SVEN Deyong Diagnosis 1 Dependent rubor (L53 .9) Referral Organization [facility] Referring Provider First Name Claire Referring Provider Last Name Ashley Referring Provider [facility] Referred Organization [facility] Referred Address [address] [place] [phone], Referred Provider Specialty Diagnostic R adiology General Notes Estefani Huang 2024 08:52:49 AM >sent to [facility] Referral Priority Routine Medications Medication SIG (Take, Route, Frequency, Duration) Notes Start Date End Date Status Furosemide 40 MG 1 tab(s) orally 2 times a day for 30 days Active Vitamin D (Ergocalciferol) 1.25 MG (60544 UT) 1 cap(s) orally once a week for 30 day(s) Active POTASSIUM CHLORIDE (KLH-GLPW-GDF 10) 10 MEQ TAKE ONE TABLET BY MOUTH THREE TIMES A WEEK for 84 *Please review for potential replacement for e-prescription and drug interaction check* Active Cipro 250 MG 1 tablet Orally every 12 hrs for 5 days 01/12/2025 Active PORTABLE OXYGEN (OXYLITE) DX: COPD *Please review for potential replacement for e-prescription and drug interaction check* 03/18/2023 Active Gabapentin 300 MG 2 caps orally once a day at bedtime for 90 days 10/31/2024 Active Montelukast Sodium 10 MG 1 tab(s) orally once a day for 90 days Active Trelegy Ellipta 100 MCG-62.5 MCG-25 MCG/INH 1 PUFF(S) INHALED ONCE A DAY for 30 DAYS *Please review and pick correct strength-formulati on from GearBox options. If intended option is not shown, discontinue and re-order from Quick Search* 08/24/2023 Active Omeprazole 40 MG 1 cap(s) orally twice daily for 30 days Active Levalbuterol HCl 45 MCG/INH 2 PUFF(S) INHALED EVERY 4 HOURS NEEDED FOR COPD for 30 DAYS *Please review and pick correct strength-formulati on from GearBox options. If intended option is not shown, discontinue and re-order from Quick Search* Active Acetaminophen-Codeine 300-30 MG 1 tablet as needed Orally twice a day Active Metoprolol Succinate ER 50 MG TAKE ONE TABLET BY MOUTH EVERY DAY for 30 days Active metFORMIN HCl ER 500 MG TAKE ONE TABLET BY MOUTH TWICE DAILY for 90 Active DULoxetine HCl 30 MG 1 cap(s) orally 2 times a day for 90 days Active Levalbuterol HCl 0.63 MG/3ML 3 mL by nebulizer every 6 hours as needed for shortness of breath for 30 days Active Promethazine-DM 6.25-15 MG/5ML 5 mL orally every 6 hours as needed for cough for 7 days 11/10/2024 Active Levothyroxine Sodium 100 MCG 1 tab(s) orally once a day for 30 days Active Alendronate Sodium 70 MG 1 tab(s) orally once a week Active Aspirin 81 MG 1 tab(s) orally once a day for 30 day(s) Active linaCLOtide 72 MCG 1 cap(s) orally once a day Active Levocetirizine Dihydrochloride 5 MG 1 tab(s) orally once a day (in the evening) for 90 days Active Januvia ( PHOSPHATE) 100 MG 1 TAB(S) ORALLY ONCE A DAY *Please review and pick correct strength-formulati on from GearBox options. If intended option is not shown, discontinue and re-order from Quick Search* Active BUPIVACAINE HYDROCHLORIDE 0.25% DIRECTED 10mg/mL w daily dose of 8.782mg/day via pain pump *Please review for potential replacement for e-prescription and drug interaction check* Active ALPRAZolam 1 MG 1 tab(s) orally 3 times a day as needed for anxiety for 30 days 12/26/2024 Active MILNACIPRAN 100 MG 1 TAB(S) ORALLY 2 TIMES A DAY *Please review for potential replacement for e-prescription and drug interaction check* Active Rosuvastatin Calcium 20 MG 1 tab(s) orally once a day for 90 days Active Immunizations Vaccine Route Administration Date Status Comme nts Fluzone High Dose IM Intramuscular 06/30/2024 Administered Social History Tobacco Use: Social History Observation [...] e smoker ((1-9 cigs/day) Section Notes: vapes vapes vapes vapes vapes vapes Problems Problem Type SNOMED Code ICD Code Onset Dates Problem Status W/U Status Risk Notes Problem Hypothyroidism (00311050) Hypothyroidism, unspecified (E03.9) Active confirmed Problem 48303569 Type 2 diabetes mellitus with other specified complication (E11.69) Active confirmed Problem Tobacco user (855049215) Nicotine dependence, cigarettes, uncomplicated (F17.210) Active confirmed Problem Anxiety disorder (015975053) Anxiety disorder, unspecified (F41.9) Active confirmed Problem 770535162 Psychophysiologi c insomnia (F51.04) Active confirmed Problem 41449708 Obstructive slee p apnea (adult) (pediatric) (G47.33) Active confirmed Problem 69166714 Other chronic pa in (G89.29) Active confirmed Problem 403306152 Paroxysmal atria l fibrillation (I48.0) Active confirmed Problem Chronic respiratory failure (54215443) Chronic respiratory failure, unspecified whether with hypoxia or hypercapnia (J96.10) Active confirmed Problem Chronic respiratory failure (44166826) Chronic respiratory failure with hypoxia (J96.11) Active confirmed Problem 757200412903526 Primary osteoarthritis, right shoulder (M19.011) Active confirmed Problem 264336703309822 Primary osteoarthritis, left shoulder (M19.012) Active confirmed Problem 195895400 Fibromyalgia (M79.7) Active confirmed Problem 07852750 Weakness (R53.1) Active confirmed Problem 235176882 Dependence on ot her enabling machines and devices (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) Active confirmed Problem Anxiety (41207221) Anxiety (F41.9) Active confi rmed Problem 05448293 Vitamin D deficiency (E55.9) Active confirmed Problem Essential hypertension (67479639) Essential hypertension (I10) Active confirmed Problem Acute exacerbation of chronic obstructive airways disease (310297535) COPD exacerbation (J44.1) Active confirmed Problem Body mass index 30.00 to 34.99 (173048959653929) BMI 31.0-31.9,adult (Z68.31) Active confirmed Problem Chronic pain syndrome (024980935) Chronic pain disorder (G89.4) Active confirmed Problem Gastric reflux (393958197) Gastric reflux (K21.9) Active confirmed Problem 143430533 BMI 32.0-32.9,ad ult (Z68.32) Active confirmed Problem Hyperlipidemia (58935909) Hyperlipidemia, unspecified (E78.5) Active confirmed Problem 77230218970739 Arthritis, multi ple joint involvement (M12.9) Active confirmed Problem Cigarette smoker (58735243) Cigarette smoker (F17.210) Active confirmed Problem 40421541 Chronic obstruct evelio pulmonary disease, unspecified COPD type (J44.9) Active confirmed Problem Obesity (039903668) Non morbid obesity, unspecified obesity type (E66.9) Active confirmed Problem Acute exacerbation of chronic obstructive airways disease (129271058) Acute exacerbation of COPD with asthma (J44.1) Active confirmed Problem 376305459 OAB (overactive bladder) (N32.81) Active confirmed Problem 38374935 Iron deficiency anemia, unspecified iron deficiency anemia type (D50.9) Active confirmed Problem 962066112 BMI 26.0-26.9,ad ult (Z68.26) Active confirmed Problem Weight loss advised (669351295) Weight loss counseling, encounter for (Z71.3) Active confirmed Problem 285561405 Elevated hemoglo bin (D58.2) Active confirmed Problem 996599877 Microcytic anemi a (D50.9) Active confirmed Problem 976443464 Type 2 diabetes mellitus without complication, without long-term current use of insulin (E11.9) Active confirmed Problem Type II diabetes mellitus without complication (726278230) Controlled type 2 diabetes mellitus without complication, without long-term current use of insulin (E11.9) Active confirmed Problem 81410795 Pica (F50.89) Active confirmed Problem 049153254 Urinary incontinence, mixed (N39.46) Active confirmed Problem Anxiety state (346513943) Anxiety state, unspecified (F41.1) Active confirmed Problem 827207309 Postmenopausal osteoporosis (M81.0) Active confirmed Problem 050390181 Chronic major depressive disorder (F32.9) Active confirmed Problem Body mass index 30.00 to 34.99 (594728068235005) Adult BMI 31.0-31.9 kg/sq m (Z68.31) Active confirmed Problem 68326952 Thoracic degenerative disc 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) Active confirmed Problem Chronic obstructive pulmonary disease (42837247) Advanced COPD (J44.9) Active confirmed Problem Chronic hypoxemic respiratory failure (804507201) Chronic hypoxemic respiratory failure (J96.11) Active confirmed Problem Cough (94484522) Cough (R05.9) Active confirmed Problem Vitamin D intoxication (46143905) Vitamin D intoxication (E67.3) Active confirmed Vital Signs Heart Rate 96 /min 01/09/2025 Temperature 96.3 degrees Fahrenheit 01/09/2025 Oximetry 89 10/04/2024 Patient is 88% RA, improves to 94% with 2 L NC Blood pressure diastolic 76 mm Hg 01/09/2025 Height 5 ft 5 in in 01/09/2025 Blood pressure systolic 110 mm Hg 01/09/2025 Weight 193.8 lbs 01/09/2025 BMI 32.25 kg/m2 01/09/2025 Encounters Encounter Location Date Provider Diagnosis [facility] [address] [place] [address] 12/17/2024 Provider Migration Chronic obstructive pulmonary disease, unspecified COPD type J44.9 ; Medicare annual wellness visit, subsequent Z00.00 ; Chronic major depressive disorder F32.9 and Advanced COPD J44.9 [facility] [address] [place] [address] 03/14/2024 Claire Ramirez Psychophysiologic insomnia F51.04 and Other chronic pain G89.29 [facility] [address] [place] [address] 04/18/2024 Claire Ramirez Psychophysiologic insomnia F51.04 ; Other chronic pain G89.29 ; Vitamin D intoxication E67.3 ; Elevated hemoglobin D58.2 ; Elevated hematocrit R71.8 ; Type 2 diabetes mellitus with other specified complication E11.69 and Hyperlipidemia, unspecified E78.5 [facility] [address] [place] [address] 06/30/2024 Claire Ramirez Immunization(s) administered Z23 ; Psychophysiologic insomnia F51.04 ; Other chronic pain G89.29 and Chronic constipation K59.09 [facility] [address] [place] [address] 10/04/2024 Claire Ramirez Psychophysiologic insomnia F51.04 ; Medicare annual wellness visit, subsequent Z00.00 ; Other chronic pain G89.29 ; Type 2 diabetes mellitus with other specified complication E11.69 ; Hyperlipidemia, unspecified E78.5 ; Polypharmacy Z79.899 ; Chronic major depressive disorder F32.9 ; Chronic hypoxemic respiratory failure J96.11 ; Essential hypertension I10 ; Advanced COPD J44.9 ; BMI 32.0-32.9,adult Z68.32 ; Postmenopausal osteoporosis M81.0 ; Visit for screening mammogram Z12.31 ; Personal history of tobacco use Z87.891 and Hypothyroidism, unspecified E03.9 [facility] [address] [place] [address] 12/26/2024 Claire Ashley Dysuria R30.0 ; Acut e UTI N39.0 and Dependent rubor L53.9 [facility] [address] [place] [address] 01/09/2025 Claire Ashley Psychophysiologic insomnia F51.04 ; Other chronic pain G89.29 ; Type 2 diabetes mellitus with other specified complication E11.69 ; Chronic major depressive disorder F32.9 ; Essential hypertension I10 ; Advanced COPD J44.9 ; Hypothyroidism, unspecified E03.9 and Dysuria R30.0 [facility] [address] [place] [phone] 07/20/2024 Claire Ashley [facility] [address] [place] [address] 07/26/2024 Claire Ashley [facility] [address] [place] [address] 10/04/2024 Claire Ashley Breast cancer screen ing by mammogram Z12.31 ; History of nicotine dependence Z87.891 and Asymptomatic postmenopausal state Z78.0 [facility] [address] [place] [address] 10/14/2024 Claire Ashley [facility] [address] [place] [address] 11/10/2024 Claire Ashley [facility] [address] [place] [address] 12/27/2024 Claire Ashley Dependent rubor L53. 9 [facility] [address] [place] [address] 01/05/2025 Claire Ashley [facility] [address] [place] [address] 01/12/2025 Claire Ashley Assessments Encounter Date Diagnosis (ICD Code) Assessment Notes Treatment Notes Treatment Clinical Notes Section Notes 03/14/2024 Psychophysiologic insomnia (ICD-10 - F51.04) Rec stop Benadryl and then wean tylenol PM. Continue gabapentin for now while pain pump adjustments are ongoing. Continue FU with Dr Hinojosa. Return precautions reviewed 03/14/2024 Other chronic pain (ICD-10 - G89.29) 04/18/2024 Psychophysiologic insomnia (ICD-10 - F51.04) Again rec stop Benadryl and then wean tylenol PM. Continue gabapentin for now while pain pump adjustments are ongoing. Continue FU with Dr Hinojosa. Return precautions reviewed 04/18/2024 Other chronic pain (ICD-10 - G89.29) 06/30/2024 Immunization(s) administered (ICD-10 - Z23) 10/04/2024 Psychophysiologic insomnia (ICD-10 - F51.04) Again rec stop Benadryl and then wean tylenol PM. Continue gabapentin for now while pain pump adjustments are ongoing. Continue FU with Dr Hinojosa. Return precautions reviewed 10/04/2024 Medicare annual wellness visit, subsequent (ICD-10 - Z00.00) recommend Arexvy and update screening exams as noted Has services in place to assist with functional deficits 10/04/2024 Breast cancer screening by mammogram (ICD-10 - Z12.31) 12/17/2024 Chronic obstructive pulmonary disease, unspecified COPD type (ICD-10 - J44.9) 12/17/2024 Medicare annual wellness visit, subsequent (ICD-10 - Z00.00) 12/17/2024 Chronic major depressive disorder (ICD-10 - F32.9) 12/17/2024 Advanced COPD (ICD-10 - J44.9) 12/26/2024 Dysuria (ICD-10 - R30.0) 12/26/2024 Acute UTI (ICD-10 - N39.0) Discussed suspected UTI based on symptoms/UA results and need for treatment with antibiotics as well as good water intake. Discussed return precautions including fever, vomiting, intractable pain, etc. 12/27/2024 Dependent rubor (ICD-10 - L53.9) 01/09/2025 Psychophysiologic insomnia (ICD-10 - F51.04) multifactoral and already on many sedating medications 01/09/2025 Other chronic pain (ICD-10 - G89.29) 01/09/2025 Type 2 diabetes mellitus with other specified complication (ICD-10 - E11.69) Continue current therapy, update labs. Continue statin therapy. Low-normal BP, hold ACEI/ARB for now. 10/04/2024 History of nicotine dependence (ICD-10 - Z87.891) 12/26/2024 Dependent rubor (ICD-10 - L53.9) rec SVEN as initial workup, discussed possible venous vs arterial disease and return precautions 10/04/2024 Other chronic pain (ICD-10 - G89.29) 04/18/2024 Vitamin D intoxication (ICD-10 - E67.3) supplement stopped about 3 months ago, repeat level today 06/30/2024 Psychophysiologic insomnia (ICD-10 - F51.04) doing better overall WRT sleep and pain management, no changes made today. No indication for repeat endoscopies at this time. Can stop Linzess if loose stools are bothersome 06/30/2024 Other chronic pain (ICD-10 - G89.29) 04/18/2024 Elevated hemoglobin (ICD-10 - D58.2) likely due to tobacco use, chronic hypoxemia, repeat today 10/04/2024 Type 2 diabetes mellitus with other specified complication (ICD-10 - E11.69) Continue current therapy, update labs. Continue statin therapy. Low-normal BP, hold ACEI/ARB for now. 10/04/2024 Asymptomatic postmenopausal state (ICD-10 - Z78.0) 01/09/2025 Chronic major depressive disorder (ICD-10 - F32.9) stable on current regimen 01/09/2025 Essential hypertension (ICD-10 - I10) history of HTN but low normal today, monitor 06/30/2024 Chronic constipation (ICD-10 - K59.09) 10/04/2024 Hyperlipidemia, unspecified (ICD-10 - E78.5) continue rosuvastatin 04/18/2024 Elevated hematocrit (ICD-10 - R71.8) 04/18/2024 Type 2 diabetes mellitus with other specified complication (ICD-10 - E11.69) A1C 6.1 on single oral agent, does not need CGM. Continue statin therapy. Low-normal BP, hold ACEI/ARB for now. Needs urine micro next visit, unable to void today 10/04/2024 Polypharmacy (ICD-10 - Z79.899) reviewed risks and precautions to prevent complications 01/09/2025 Advanced COPD (ICD-10 - J44.9) continue Trelegy 01/09/2025 Hypothyroidism, unspecified (ICD-10 - E03.9) 10/04/2024 Chronic major depressive disorder (ICD-10 - F32.9) stable on current regimen 04/18/2024 Hyperlipidemia, unspecified (ICD-10 - E78.5) continue rosuvastatin 10/04/2024 Chronic hypoxemic respiratory failure (ICD-10 - J96.11) continue supplemental O2 at night and as needed during the day 01/09/2025 Dysuria (ICD-10 - R30.0) 10/04/2024 Essential hypertension (ICD-10 - I10) history of HTN but low normal today, monitor 10/04/2024 Advanced COPD (ICD-10 - J44.9) continue Trelegy 10/04/2024 BMI 32.0-32.9,adult (ICD-10 - Z68.32) complicates all aspects of care, up significantly this visit 10/04/2024 Postmenopausal osteoporosis (ICD-10 - M81.0) 10/04/2024 Visit for screening mammogram (ICD-10 - Z12.31) 10/04/2024 Personal history of tobacco use (ICD-10 - Z87.891) 10/04/2024 Hypothyroidism, unspecified (ICD-10 - E03.9) 10/04/2024 Other Plan Of Treatment Pending Test Test Name Order Date CT Scan : Pelvis with contrast 3 M-Complete Blood Count Auto Diff 025 M-Comprehensive Metabolic Panel 10/04/19 25 M-Hemoglobin A1C 10/04/2024 M-Lipid Panel 10/04/2024 M-Thyroid Stimulating Hormone 10/04/2024 M-Respiratory Virus Panel, PCR 3 M-Vitamin D 25 Hydroxy 10/04/2024 M-Microalb/Creat Ratio, Randm Ur 025 RHEUMATOID FACTOR ([id number]) 07/07/2023 Insurance Providers Payer Name Payer Address Payer Phone Subscriber Number Group Number Insured Name Patient Relationship to Insured Coverage Start Date Coverage End Date [employer] Dual [address] [address] [place] [address] [id number] PitaAndrés peresa Self - patient is the insured Medications Administered Medication Instructions Date of Administration Dosage Notes Dexamethasone 4mg Injection 12/23/2022 4 mg Dexamethasone 4mg Injection 02/24/2023 4 mg Medical (General) History Medical History History ICD Code HTN COPD/Asthma Hyperlipidemia Diabetes Arthritis Anxiety Chronic hypoxic respiratory failure on s upplemental O2 Urinary incontinence ALCIDES on CPAP 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
--- OUTSIDE RECORDS SUMMARY | 2025-03-01 16:54 | XMS_ITS | Data Portability ---
Author Organization [facility] Neela casper, EMILIOS LINNEUS CLOSED Address [address] [place] [address] Assessment No assessment recorded. Plan of Treatment Reminders Order Date Submit Date Provider Last Modified By Organization Details Last Modified Time Details Appointments None record ed. Lab None record ed. Referral None record ed. Procedures None record ed. Surgeries None record ed. Imaging None record ed. Medication Orders None record ed. Patient TargetsNo targets recorded. Patient InstructionsNo instructions recorded. Reason for Referral None Reported. Procedures Surgical History Date Name Laterality Status Provider Name and Address Organization Details Recorded Time 07/02/20 18 Urodynamics Interpretation completed [facility] 07/02/2018 12:18:08 07/02/20 18 Urodynamics completed [facility] 07/02/2018 12:25:46 Tonsillectomy completed [facility] 07/02/2018 12:12:59 section completed [facility] 07/02/2018 12:13:17 Cholecystectomy completed [facility] 07/02/2018 12:13:31 Urinary Bladder completed [facility] 07/02/2018 12:13:50 Total Hysterectomy completed [facility] 07/02/2018 12:14:35 partial resection of colon completed [facility] 07/02/2018 12:15:24 colonoscopy completed [facility] 07/02/2018 12:15:35 Imaging Results None recorded. Procedure Notes None recorded. Medical Equipment None Reported. Allergies Allergen ID Allergen Name Allergen Category Reaction Reaction Severity Criticality Documentation Date Start Date Code Code System Note Provider Name and Address Organization Details Recorded Time [id number] ciproflox acin medicatio n Not available Not available Not available 06/02/2018 [facility] [id number] aripipraz ole medicatio n Not available Not available Not available 06/02/2018 73093 [facility]04 044694 phenazopy ridine medicatio n Not available Not available Not available 06/02/2018 8[facility]15 Medications Name Sig Start Date Stop Date Status Note LastModified by Organization Details LastModified Time furosemide 40 mg tablet Take 1 tablet every day by oral route. active Not Available Not Available No t Available metformin 500 mg tablet Take 1 tablet twice a day by oral route. active Not Available Not Available No t Available doxycycline hyclate 100 mg capsule TAKE ONE CAPSULE BY MOUTH EVERY DAY AT BEDTIME 2019 active Not Available Not Available Not Avai lable alprazolam 1 mg tablet Take 1 tablet 3 times a day by oral route. active Not Available Not Available No t Available rizatriptan 10 mg tablet Take by oral route. active Not Available Not Available No t Available atenolol 25 mg tablet Take 1 tablet every day by oral route. active Not Available Not Available No t Available omeprazole 40 mg capsule,del ayed release Take 1 capsule every day by oral route. active Not Available Not Available No t Available bethanechol chloride 25 mg tablet TAKE 1 TABLET BY MOUTH THREE TIMES DAILY 2020 active Not Available Not Available Not Avai lable gabapentin 300 mg capsule Take 1 capsule 3 times a day by oral route. active Not Available Not Available No t Available cefuroxime axetil 500 mg tablet Take 1 tablet twice a day by oral route as directed for 10 days. 07/02 completed Not Available Not Available Not Available Bactrim DS 800 mg-160 mg tablet Take 1 tablet every 12 hours by oral route. 07/02 completed Not Available Not Available Not Available rosuvastati n 20 mg tablet Take 1 tablet every day by oral route. active Not Available Not Available No t Available tiotropium bromide 18 mcg capsule with inhalation device Inhale 1 capsule every day by inhalatio n route. active Not Available Not Available No t Available sitagliptin phosphate 100 mg tablet Take 1 tablet every day by oral route. active Not Available Not Available No t Available milnacipran 100 mg tablet Take 1 tablet twice a day by oral route. active Not Available Not Available No t Available levothyroxi ne 125 mcg capsule Take 1 capsule every day by oral route. active Not Available Not Available No t Available albuterol sulfate 90 mcg/actuati on breath activated powder inhaler Inhale 2 puffs every 4 hours by inhalatio n route. active Not Available Not Available No t Available fluticasone 55 mcg-salmete rol 14 mcg/actuati on breath activated powder Inhale 1 puff twice a day by inhalatio n route. active Not Available Not Available No t Available Vitals Date Recorded Body height Body mass index (BMI) Body weight Provider Name and Address Organization Details Last Updated DateTime 07/02/2018 165.1 cm 32.1 kg/m2 42938.33 g Manda Horta [facility] 07/02/2018 12:10:38 Social History Question Answer Notes LastModified by Organizat ion Details LastModified Time Tobacco Smoking Status Current Every Day Smoker 1/2 pack/day Manda Horta [facility] 07/02/2018 12:12:31 Marital Status Information not available 07/02/2018 What Was The Date Of Your Most Recent Tobacco Screening? 07/02/2018 Information not available 11/01/2019 Sex: Unknown Functional Status Question Answer Note LastModified by Organization D etails LastModified Time What is your level of alcohol consumption? None Information not available 07/02/2018 Mental Status None recorded. Family History Relationship Description Onset Age of this Age Resolved Age Notes LastModified by Organization Details LastModified Time Father Family history of malignant neoplasm Not available 2017 12:11:31 Father Malignant neoplasm of prostate Not available 2017 12:11:49 Mother Family history of malignant neoplasm Not available 2017 12:11:31 Sister Family history of malignant neoplasm Not available 2017 12:11:31 Paternal Uncle Malignant neoplasm of prostate Not available 2017 12:11:49 Unspecified Relation Diabetes mellitus Not available 2017 12:12:02 Medical History Condition Response Allergies/Hayfever Y Anxiety Disorder Y False Teeth Y Arthritis Y Chronic Obstructive Pulmonary Disease Y Kidney Stones Y Acid Reflux (GERD) Y Depression Y Asthma Y Sleep Apnea Y Thyroid Disorder Y High Cholesterol Y Gynecological HistoryNo gynecological history recorded. Obstetrics History GPAL:G 0 P 0 0 0 0 Past Encounters Encounter ID Performer Location Encounter Start Date Encounter Closed Date Diagnosis/Indication Diagnosis SNOMED-CT Code Diagnosis ICD10 Code Diagnosis Note [id number] CHINTAN PRICE MD [facility] [address] [place] [address] 07/02/2018 10:02:51 07/02/2018 11:02:09 Urge incontinence of urine 78615484 N39.41 Health Concerns Section Related Observation LastModified by Organization Detai ls LastModified Time None Recorded Concern Status LastModified by Organization Details LastModified Time None Recorded Advance Directives Directive None Recorded Payers Insurance Date Sequence Insurance Name Policy Number Policy Lopez Covered Member ID Lopez Member ID Guarantor Name 05/06/2021 2 PASSPORT BY [facility] (MEDICAID REPLACEMENT - HMO) MEDICAID Sindy Augustin [id number] Sindy Augustin 05/06/2021 1 [place] Sindy Augustin [id number] Sindy Augustin OBGyn Episode No OBEpisode recorded.
--- OUTSIDE RECORDS SUMMARY | 2025-03-01 16:54 | XMS_ITS | Clinical Summary ---
Author Organization [facility] Address [address] [place] [address] Phone Care Team Providers Care Foreign Language Instructor Name Role Phone Greg Brar MD Unavailable [phone] James Nielsen MD Unavailable [phone] Sharon Rao MD Unavailable [phone] Salvador Zamorano MD Primary Care Provider [phone] Allergies Active Allergy Reactions Criticality Noted Date Comments Aripiprazole Rash 04/07/2013 Ciprofloxacin Swelling 07/21/2015 Phenazopyridine 07/26/2015 Medications nicotine (NICODERM CQ) 14 mg/24 hr TD Patch [address] 1 Patch onto the skin daily. 30 Patch 1 05/11/20 15 Active fUROsemide (LASIX) 40 mg Oral Tablet Take 0.5 Tabs by mouth daily. 90 Tab 2 05/16/20 15 Active potassium chloride SA (K-DUR;KLOR-CON) 20 mEq Oral Tab Sust.Rel. Particle/Crystal take 1 tablet by mouth once daily (USE WITH FUROSEMIDE) 30 Tab 2 08/20/20 15 Active methen-m.blue-s.ph qh-kqmhv-djn 118-10-40.8-36 mg Oral Capsule Take 1 Tab by mouth daily. 30 Cap 6 01/29/20 16 Active Additional Information Patient not taking.Reason: Other, Reported on 11/17/2019 Miscellaneous Medical Supply Misc MiscIndications:Ot her emphysema (HCC) Needs O2 to be set on 2 liters 1 Each 0 03/27/20 16 Active Additional Information Patient not taking.Reason: Other, Reported on 11/17/2019 VENTOLIN HFA 90 mcg/actuation Inhl HFA Aerosol InhalerIndications :Chronic obstructive pulmonary disease, unspecified COPD type (HCC) INHALE 2 PUFFS EVERY 6 HOURS 54 g 2 09/29/19 17 Active Additional Information Patient not taking.Reason: Other, Reported on 11/17/2019 ergocalciferol (DRISDOL) 50,000 unit Oral Capsule Take 1 Cap by mouth once a week. 12 Cap 11 10/08/19 17 Active fluticasone-salmet dusty (ADVAIR) 250-50 mcg/dose Inhl Disk with Device Inhale 1 Puff into the lungs 2 times daily. 1 Inhaler 2 10/21/19 17 Active Milnacipran (SAVELLA) 100 mg Oral Tablet Take 1 Tab by mouth 2 times daily. 180 Tab 2 01/08/20 17 Active rosuvastatin (CRESTOR) 20 mg Oral TabletIndications: Hyperlipidemia, unspecified hyperlipidemia type Take 1 Tab by mouth nightly. 90 Tab 2 05/05/20 17 Active sitaGLIPtin (JANUVIA) 100 mg Oral TabletIndications: Type 2 diabetes mellitus without complication, unspecified shelter insulin use status Take 1 Tab by mouth daily (with breakfast). 90 Tab 1 06/29/20 17 Active glycopyrrolate (ROBINUL) 1 mg Oral Tablet Take 1 Tab by mouth 2 times daily as needed (sweating). 60 Tab 2 07/10/20 17 Active Additional Information Patient not taking.Reason: Other, Reported on 11/17/2019 metFORMIN XR (GLUCOPHAGE-XR) 500 mg Oral Tablet Sustained Release 24 hrIndications:Cont rolled type 2 diabetes mellitus without complication, without long-term current use of insulin ([facility]) Take 1 Tab by mouth 2 times daily. 180 Tab 1 07/10/20 17 Active omeprazole (PRILOSEC) 40 mg Oral Capsule, Delayed Release(E.C.) Take 1 Cap by mouth daily. 90 Cap 07/13/20 17 Active amLODIPine (NORVASC) 5 mg Oral TabletIndications: Essential hypertension Take 1 Tab by mouth daily. 30 Tab 2 08/21/20 17 Active Additional Information Patient not taking.Reason: Other, Reported on 11/17/2019 levocetirizine (XYZAL) 5 mg Oral Tablet Take 1 Tab by mouth nightly. 90 Tab 1 08/22/20 17 Active Additional Information Patient not taking.Reason: Other, Reported on 11/17/2019 ALPRAZolam (XANAX) 1 mg Oral Tablet Take 1 Tab by mouth 3 times daily. 90 Tab 09/08/20 17 Active gabapentin (NEURONTIN) 300 mg Oral CapsuleIndications :Fibromyalgia Take 3 Caps by mouth nightly. 90 Cap 10/22/19 18 Active levothyroxine (SYNTHROID) 112 mcg Oral TabletIndications: Hypothyroidism (acquired) take 1 tablet by mouth once daily 90 Tab 2 12/13/19 18 Active Additional Information Patient not taking.Reason: Other, Reported on 11/17/2019 amitriptyline (ELAVIL) 25 mg Oral Tablet 'TAKE 1 TABLET BY MOUTH ONCE DAILY AT NIGHT 90 Tab 2 04/05/20 18 Active Additional Information Patient not taking.Reason: Other, Reported on 11/17/2019 cyclobenzaprine (FLEXERIL) 5 mg Oral Tablet TAKE 1 TABLET NIGHTLY NEEDED FOR MUSCLE SPASMS 30 Tab 2 05/08/20 18 Active Additional Information Patient not taking.Reason: Other, Reported on 11/17/2019 cyclobenzaprine (FLEXERIL) 5 mg Oral Tablet TAKE 1 TABLET NIGHTLY NEEDED FOR MUSCLE SPASMS 30 Tab 2 06/01/20 18 Active Additional Information Patient not taking.Reason: Other, Reported on 11/17/2019 atenoloL (TENORMIN) 25 mg Oral Tablet Take 25 mg by mouth daily. Active carBAMazepine (TEGRETOL) 100 mg Oral Tablet, Chewable Take 100 mg by mouth 2 times daily. Active HYDROcodone-acetam inophen (NORCO) 10-325 mg Oral Tablet Take 1 Tab by mouth every 6 hours as needed. Active Levalbuterol Tartrate (XOPENEX) 45 mcg/actuation Inhl HFA Aerosol Inhaler Inhale 45 mcg into the lungs. Active losartan (COZAAR) 50 mg Oral Tablet Take 50 mg by mouth daily. Active meloxicam (MOBIC) 15 mg Oral Tablet Take 15 mg by mouth daily. Active rizatriptan (MAXALT) 10 mg Oral Tablet Take by mouth once as needed. May repeat in 2 hours if needed Active tiotropium (SPIRIVA) 18 mcg Inhl Capsule, w/Inhalation Device Inhale 18 mcg into the lungs daily. Active Active Problems Patient Care Coordination No te Formatting of this note migh t be different from the original. Eric 10/22/16 As expected Problem Noted Date Diagnosed Date Periumbilical abdominal pain 03/05/2020 Epigastric pain 11/22/2019 Nocturnal hypoxemia 05/28/2017 Mixed incontinence 01/24/2016 History of pulmonary embolus (PE) 11/15/2015 Delirium 05/11/2015 Acute hypernatremia 05/11/2015 Mental status alteration 04/17/2015 Overview (04/17/2015): Per ED, found pt yesterday confused and walking around with clothes off. not currently present and unable to reach him at listed number. She has non-focal exam, but is confused to year/date/her address. Doesn't appear sedated She can tell me location. Unclear if all due to prob UTI, meds, underlying Psych issues, or other etiology. CT head negative Will change to Rocephin for UTI and await cx Will check UDS and additional labs Ask Neuro to see Re-eval meds CHF (congestive heart failure), NYHA class I 05/2015 Overview (08/27/2017): 1. Echo 03-01-15 EF 70% Left ventricular cavity size normal. Left ventricular wall thickness at upper limits of normal.No obvious regional wall motion abnormalities. Left ventricular systolic function is vigorous. Grade 1 diastolic dysfunction 2. Stress test 03-01-15 Neg for ischemia 3. 24 hr Holter 03-01-15 NSR, No Afib, SVT or VT AVG HF 80's Vitamin B 12 deficiency 12/27/2014 PTSD (post-traumatic stress disorder) 07/06/2014 Metabolic encephalopathy 07/03/2014 Tobacco abuse 04/24/2014 Vitamin D deficiency 10/25/2013 Major depression 03/09/2013 Bipolar 2 disorder 03/09/2013 Hypothyroid 08/03/2012 OA (osteoarthritis) 01/27/2011 ALCIDES (obstructive sleep apnea) 01/27/2011 HTN (hypertension) 11/28/2010 Overview (04/17/2015): Cont home meds Back pain 10/11/2010 Insomnia 06/18/2010 Unspecified hypothyroidism Pure hypercholesterolemia Esophageal stricture Migraine Seasonal allergies DM II (diabetes mellitus, type II), controlled Overview (04/17/2015): SS/cont home DM meds Fibromyalgia COPD (chronic obstructive pulmonary disease) Generalized anxiety disorder Altered mental status Conversion disorder Narcotic induced mental alteration Resolved Problems Problem Noted Date Diagnosed Date Resolved Date Pulmonary embolism 01/14/2015 6 Overview (04/17/2015): In 12/2014--on anticoag with Pradaxa Acute pulmonary embolism 01/02/2015 CAP (community acquired pneumonia) 01/02/2015 01/30/2015 UTI (lower urinary tract infection) 07/03/2014 01/30/2015 Sepsis 04/24/2014 01/30/2015 Small bowel obstruction 04/08/201310/15 Bipolar disorder 10/03/2009 04/20/2013 Sleep apnea 01/30/2015 Depressive disorder, not elsewhere classified 03/09/2013 Immunizations Immunization Administration Dates Next Due Influenza High Dose 06/24/2016,05/07/2012 Influenza Patient Reported 06/17/2017,05/29/2014 Influenza Vaccine, Unspecified Formulation 07/04,06/12/2009 Pneumococcal Conjugate Vaccine 13 Valent 016 Pneumococcal Polysaccharide 23 Valent 02/21/2013 Zoster 09/26/2016 Surgical History Surgery Date Site/Laterality Comments HYSTERECTOMY BLADDER REPAIR COLONOSCOPY COLON SURGERY 1997 BLADDER SURGERY stimulator mri heads only with transmit/recieve coil 8-4-15 mac SECTION 1965, 1971 DILATION AND CURETTAGE OF UTERUS TONSILLECTOMY 09/14/1954 - 09/13/1955 KNEE ARTHROSCOPY 05/08/2015 Left LEFT KNEE ARTHROSCOPY DEBRIDEMENT MEDIAL MENISCECTOMY CHONDROPLASTY; Surgeon: Jose Pope MD; Location: [facility] MAIN OR; Service: Orthopedics CARDIAC CATHETERIZATION Medical History Medical History Date Comments Thyroid disease Allergy OA (osteoarthritis) 01/27/2011 COPD (chronic obstructive pu lmonary disease) (HCC) Depressive disorder, not els ewhere classified Fibromyalgia Diverticulitis Hyperlipidemia Heartburn Irritable bowel syndrome Pulmonary emboli (HCC) 12/27 Pneumonia Unspecified sleep apnea CPAP. Se tting =12 ( machine is currently broken ) Diabetes mellitus (HCC) NIDDM ti mes 5 years Other specified disorder of kidney and ureter bladder stimulator Urinary tract infection 04-16-15 hospital ized. Antibiotics complete Encounter for blood transfusion 1954 hemorrhaged with T&A Clotting disorder 01-01-15 PE right lung, on Pradaxa Clotting disorder 1974 DVT after chil dbirth PTSD (post-traumatic stress disorder) Generalized anxiety disorder Family History Medical History Relation Name Comments Diabetes Brother Cancer Father No Known Problems Maternal Grandfather Heart Disease Maternal Grandmother Pacemaker Maternal Grandmother Cancer Mother Heart Disease Mother High Cholesterol Mother Aneurysm Paternal Grandfather Aneurysm Paternal Grandmother Clotting Disorder Paternal Grandmother Heart Disease Paternal Grandmother Cancer Sister Relation Name Status Comments Brother Alive Father Maternal Grandfather Maternal Grandmother Mother Paternal Grandfather Paternal Grandmother Sister Alive Social History Tobacco Use Types Packs/Day Years Used Date Smoking Tobacco: Every Day Cigarettes 1 64.9 Started: 04/17/1960 Smokeless Tobacco: Never Tobacco Cessation:Ready to Q uit: No; Counseling Given: Yes Comments:last attempt to quit 01/15/15 Alcohol Use Standard Drinks/Week Comments No 0 (1 standard drink = 0.6 oz pur e alcohol) Comments No Sex and Gender Information Value Date Recorded Sex Assigned at Not on file Legal Sex Female 4:20 PM EDT Gender Identity Not on file Sexual Orientation Not on file Obstetrics History Last Filed Vital Signs Vital Sign Reading Time Taken Comments Blood Pressure 122/70 11/17/2019 11:33 AM EST Pulse 78 11/17/2019 11:33 AM EST Temperature 37 C (98.6 F) 08/27/2017 2:41 PM EST Respiratory Rate 19 03/14/2016 2:59 PM EDT Oxygen Saturation 96% 03/14/2016 2:59 PM EDT Inhaled Oxygen Concentration - - Weight 89.3 kg (196 lb 14.4 oz) 020 11:33 AM EST Height 165.1 cm (5' 5 ) 11/17/2019 11:3 3 AM EST Body Mass Index 32.77 11/17/2019 11:33 AM EST Plan of Treatment Health Maintenance Due Date Last Done Comments Wellness Exam Medicare 1948 Diabetic Eye Exam 1964 DTaP/TDaP/Td (1 - Tdap) 1965 Zoster (2 of 3) 11/21/2016 09/26/2016 Lipids 09/26/2017 09/26/2016, 06/14, 11/15/2015, Additional history exists Low Dose Lung Cancer Screening 09/26/2017 09/26/2016 (Declined), 07/22/2016, 01/01/2015, Additional history exists Hemoglobin A1c 01/08/2018 07/10/2017, 02/14, 09/26/2016, Additional history exists Microalbuminuria 07/10/2018 07/10/2017, , 11/15/2015, Additional history exists RSV or 60+ (1 - 1-dose 75+ series) 2021 COVID-19 Vaccine (2023-2 5 season) 2024 Influenza Vaccine (Season Ended) 2025 06/17/2017, 06/24/2016, 07/26/2015 (Declined), Additional history exists Bone Density Screening Completed 04/01/2013 Colon Cancer Screening Discontinued Colonoscopy Discontinued 01/30/2015 (Decl ined), 04/18/2011, 04/18/2011 Pneumococcal Vaccine 50+ Completed 11/15/2015, 02/12 Hepatitis C Screening Completed 09/26/2016 Cologuard Discontinued FIT Discontinued Hepatitis B Vaccine Aged Out No longe r eligible based on patient's age to complete this topic Meningococcal B Vaccine Aged Out No l onger eligible based on patient's age to complete this topic Sigmoidoscopy Discontinued Virtual Colonography Discontinued Goals Goal Patient Goal Type Associated Problems Recent Progress Patient-Stated? Author Blood Pressure < 140/90 Blood Pressure 122/70(2019 11:33 AM EST) No Tamiko Givens RMA BMI (Calculated) < 30 General 32.8(11/17/19 11:33 AM EST) No Tamiko Givens RMA Eat better, exercise, reach an ideal body weight General No Emely Baltazar RMA Stay Tobacco Free Lifestyle No Emely Baltazar RMA HEMOGLOBIN A1C < 7.0 Result Component 6.3( 7 2:39 PM EDT) No Tamiko Givens RMA Medical Devices Implanted Type Area Pasteuriser Operator Device Identifier Shelf Expiration Date Model / Serial / Lot Interstim Bladder Stimulator Hip MEDTRONIC [id number] / / Bilateral Intraocular Lenses Procedures Procedure Name Priority Date/Time Associated Diagnosis Comments POCT MICROALBUMIN Routine 07/10/2017 2:3 9 PM EDT Controlled type 2 diabetes mellitus without complication, without long-term current use of insulin (HCC) POCT GLYCATED HEMOGLOBIN, TOTAL Routine 07/10/2017 2:39 PM EDT Controlled type 2 diabetes mellitus without complication, without long-term current use of insulin (HCC) ACUTE HEPATITIS PANEL Routine 09/26/2016 11:46 AM EST Controlled type 2 diabetes mellitus without complication, without long-term current use of insulin (HCC) Encounter for hepatitis C screening test for low risk patient LIPID SCREEN Routine 09/26/2016 11:46 AM EST Controlled type 2 diabetes mellitus without complication, without long-term current use of insulin (HCC) CT CHEST W CONTRAST Routine 01/01/2015 2 :47 PM EDT Chronic cough Abnormal CT scan, chest DX BONE DENSITY AXIAL SKELETON Routine 04/01/2013 1:15 PM EDT Screening for osteoporosis from Last 3 Months or Most Recently Relevant to Health Maintenance Results * POCT MICROALBUMIN (07/10/2017 2:39 PM EDT) Microalb, Ur neg <=20 MG/L SEP OFFICE Lot Number SEP OFFICE Expiration Date SEP OFFICE SeriAl # SEP OFFICE Urine 07/10/2017 2:39 PM EDT us Ely Carpenter MD POINT OF CARE TEST ORDERABLES Final Result SEP OFFICE * POCT GLYCATED HEMOGLOBIN, TOTAL (07/10/2017 2:39 PM EDT) Hemoglobin A1C 6.3 % SEP OFFICE Lot Number SEP OFFICE Expiration Date SEP OFFICE SeriAl # SEP OFFICE 07/10/2017 2:39 PM EDT us Ely Carpenter MD POINT OF CARE TEST ORDERABLES Final Result Performing Organization Address [facility] Co de Phone Number SEP OFFICE * ACUTE HEPATITIS PANEL (09/26/2016 11:46 AM EST) Hep Bs Ag Negative Negative [facility] Hep B Core IgM Negative Negative [facility] Hep A IgM Negative Negative [facility] Hep C Ab Negative Negative [facility] Blood specimen (specimen) UPPER LIMB STRUCTURE / Unknown 09/26/2016 11:46 AM EST 09/26/2016 8:13 PM EST us Ely Carpenter MD CHEMISTRY ORDERABLES Edited Re sult - Final Performing Organization Address [facility] de Phone Number [facility] [address] [place] [address] * (ABNORMAL) LIPID SCREEN (09/26/2016 11:46 AM EST) Cholesterol 174 <=200 mg/dL [facility] Comment: < 200 Desirable 200 - 239 Borderline High >= 240 High Triglyceride 165(H) <=150 mg/dL [facility] Comment: < 150 Normal 150 - 199 Borderline High 200 - 499 High >= 500 Very High HDL 65 >=40 mg/dL [facility] Comment: > 60 Optimal 40 - 60 Acceptable < 40 Low LDL Calculated 76 <=100 mg/dL [facility] Comment: < 100 Optimal 100 - 129 Near or above optimal 130 - 159 Borderline High 160 - 189 High >= 190 Very High Blood specimen (specimen) UPPER LIMB STRUCTURE / Unknown 09/26/2016 11:46 AM EST 09/26/2016 8:13 PM EST us Ely Carpenter MD CHEMISTRY ORDERABLES Edited Re sult - Final Performing Organization Address [facility] de Phone Number [facility] [address] [place] [address] * CT CHEST W CONTRAST (01/01/2015 2:47 PM EDT) Anatomical Region Laterality Modality Chest Computed Tomogra phy 01/01/2015 2:20 PM EDT Impressions 01/01/2015 3:19 PM EDT IMPRESSION: Acute pulmonary embolism left upper lobe. Right lobe atelectasis and/or infiltrate. Finds are new since prior study. Previous infiltrates have resolved. Previous mediastinal lymphadenopathy is improved or resolved. There is also this study have been relayed to the voicemail of the ordering physician Dr. Ely Carpenter. Code jot stat Narrative 01/01/2015 3:[address] CHEST W CONTRAST Jan 01, 2015 02:47:16 PM HISTORY: 786.1-Layxh-[id number]-9-CM Comparison 04/23/2014. Technical 75 cc [id number] Previously noted infiltrates in the right lower lobe and right upper lobe have resolved. Mediastinal lymphadenopathy is improved or resolved. There is a new infiltrate and partial atelectasis of the right middle lobe. This certainly could be a cause of cough. There is no tracheobronchial tree obstruction. Incidentally identified however is a filling defect in the left upper lobe pulmonary artery most likely the truncus anterior branch. Findings indicate acute pulmonary embolism. The possibility of a nonvisualized pulmonary embolus on the right with secondary infarct in the right middle lobe simulating infiltrate and/or atelectasis is raised. No pleural fluid detected. No masses identified. Limited images of the upper abdomen are normal. Procedure Note Gume Leiva MD - 01/01/2015 CT CHEST W CONTRAST Jan 01, 2015 02:47:16 PM HISTORY: 786.1-Yndfp-VEM-9-CM Comparison 04/23/2014. Technical 75 cc Isovue-370 Previously noted infiltrates in the right lower lobe and right upper lobehave resolved. Mediastinal lymphadenopathy is improved or resolved. There is a newinfiltrate and partial atelectasis of the right middle lobe. This certainly could be a cause ofcough. There is no tracheobronchial tree obstruction. Incidentally identified however is a filling defect in the left upper lobepulmonary artery most likely the truncus anterior branch. Findings indicate acute pulmonaryembolism. The possibility of a nonvisualized pulmonary embolus on the right withsecondary infarct in the right middle lobe simulating infiltrate and/or atelectasis is raised. Nopleural fluid detected. No masses identified. Limited images of the upper abdomen arenormal. IMPRESSION: Acute pulmonary embolism left upper lobe. Right lobeatelectasis and/or infiltrate. Finds are new since prior study. Previous infiltrates have resolved.Previous mediastinal lymphadenopathy is improved or resolved. There is also this study have been relayed to the voicemail of theordering physician Dr. Ely Carpenter. Code jot stat us Ely Carpenter MD IMG CT ORDERABLES Final Result * DX BONE DENSITY AXIAL SKELETON (04/01/2013 1:15 PM EDT) Anatomical Region Laterality Modality Dexa Scan 04/01/2013 Narrative 04/01/2013 3:51 PM EDT Indication: The patient is presently being monitored while on treatment and requires a bone density assessment. Bone Density: Region BMD T-score Z-score AP Spine (L1, L2, L3) 0.764 -2.3 -0.5 Femoral Neck (Left) 0.555 -2.6 -1.1 Total Hip (Left) 0.767 -1.4 -0.1 World Health Organization criteria for BMD interpretation classify patients as: Normal (T-score at or above -1.0), Osteopenic (T-score between -1.0 and -2.5), or Osteoporotic (T-score at or below -2.5). T Scores are reported in Postmenopausal women and in men age 50 and older. Z-scores are reported in females prior to menopause and in males younger than age 50. 10-year Fracture Risk: FRAX not reported because: Some T-score at or below -2.5 Treated for osteoporosis Previous Exams: Region Exam Age BMD T-score Date g/cm2 AP Spine(L1, L2, L3) 04/01/2013 67 0.764 -2.3 12/11/2008 63 0.721 -2.7 Total Hip(Left) 04/01/2013 67 0.767 -1.4 12/11/2008 63 0.792 -1.2 Medical History: Has had a low trauma fracture Smokes Is being treated for osteoporosis Has used the following medications: Calcium, Vitamin D, Thyroid medication Has the following medical conditions: Asthma, Emphysema, or COPD, Back pain, Hip pain Patient maximum height was 67 Postmenopausal Interpretation: Bone mineral density is in the osteoporotic range. The spine bone mineral density is significantly increased from the last exam. The left hip bone mineral density is not significantly changed since last exam. Reported by: Jennifer Gimenez PA-C, EVERARDO on 04/01/2013 1:40:00 PM. Procedure Note Winifred Culver MD - 04/01/2013 Indication: The patient is presently being monitored while on treatmentand requires a bone density assessment. Bone Density: Region BMD T-score Z-score AP Spine (L1, L2, L3) 0.764 -2.3 -0.5 Femoral Neck (Left) 0.555 -2.6 -1.1 Total Hip (Left) 0.767 -1.4 -0.1 World Health Organization criteria for BMD interpretation classify patients as: Normal (T-score at or above -1.0), Osteopenic (T-score between -1.0 and -2.5), or Osteoporotic (T-score at or below -2.5). T Scores are reported in Postmenopausal women and in men age 50 and older. Z-scores are reported in females prior to menopause and in males youngerthan age 50. 10-year Fracture Risk: FRAX not reported because: Some T-score at or below -2.5 Treated for osteoporosis Previous Exams: Region Exam Age BMD T-score Date g/cm2 AP Spine(L1, L2, L3) 04/01/2013 67 0.764 -2.3 12/11/2008 63 0.721 -2.7 Total Hip(Left) 04/01/2013 67 0.767 -1.4 12/11/2008 63 0.792 -1.2 Medical History: Has had a low trauma fracture Smokes Is being treated for osteoporosis Has used the following medications: Calcium, Vitamin D, Thyroidmedication Has the following medical conditions: Asthma, Emphysema, or COPD, Backpain, Hip pain Patient maximum height was 67 Postmenopausal Interpretation: Bone mineral density is in the osteoporotic range. The spine bone mineral density is significantly increased from the lastexam. The left hip bone mineral density is not significantly changed since lastexam. Reported by: Jennifer Gimenez PA-C, CCD on 04/01/2013 1:40:00 PM. Devendra CONTE DEXA ORDERABLES Final Resul t from Last 3 Months or Most Recently Relevant to Health Maintenance Insurance [facility] [place] [address] [facility] [address] [employer] MEDICARE PPO MR Advance Directives For more information, please contact: [phone] * Full Code (Latest Code Status on File) Date Activated Date Inactivated Comments 04/18/2015 8:32 AM 04/20/2015 6:29 PM * Full Code Date Activated Date Inactivated Comments 01/02/2015 10:12 PM 01/03/2015 9:25 PM * Full Code Date Activated Date Inactivated Comments 07/03/2014 2:33 AM 07/04/2014 6:32 PM * Full Code Date Activated Date Inactivated Comments 04/24/2014 2:19 AM 04/25/2014 8:45 PM Care Teams Foreign Language Instructor Relationship Specialty Start Date End Date Sharon Rao MD [address] [place] [address] PCP - Hematology/Oncology Internal Medicine-Medical Oncology 07/16/15 Salvador Zamorano MD [address] [place] [address] PCP - General Internal Medicine 04/21/18 Greg Brar MD Internal Medicine-Gastroentero logy 03/18/13 James Nielsen MD [address] [place] [address] Internal Medicine-Cardiovascul ar Disease 02/14/15
--- OUTSIDE RECORDS SUMMARY | 2025-03-01 16:54 | XMS_ITS | Encounter Summary ---
Author Organization [employer] Address [address] [place] [address] Care Team Providers Care Receiving Operator Name Role Phone Unavailable Primary Care Provider Unavailabl e Encounter Details Date Type Department Care Team (Late st Contact Info) Description 04/18/2021 Transcribed Document [facility] [place] [facility] [place] [address] ProviderPantera MD [address] [place] [address] Social History Tobacco Use Types Packs/Day Years Used Date Smoking Tobacco: Never Assessed Comments Unknown Sex and Gender Information Value Date Recorded Sex Assigned at Not on file Legal Sex Female 7:22 PM CDT Gender Identity Not on file Sexual Orientation Not on file documented as of this encounter Miscellaneous Notes * Cerner Conversion Note - Pantera Tineo MD - 04/18/2021 11:18 AM CDT Salvador Zamorano M.D. [facility] [address] [place] [id number] Re: SINDY HAINES Date of Visit: 04/14/2021 Dear Salvador Zamorano Thank you for allowing me to participate in your patient's care. Please see the accompanying information that I would like to share with you regarding your patient. This Document is confidential and intended solely for the use of the individual or entity to which it is addressed. If you are not the named addressee, please disregard and do not disseminate, distribute or copy this information. If you are the intended recipient any disclosure of this information and its contents is strictly prohibited. Sincerely, EDWARDO SCHULTZ [address] [facility] [place] [address] The following document(s) were included in the letter: April 18, 2021 10:47:49 EDT - (04/18/2021) Discharge Note documented in this encounter Plan of Treatment Not on file documented as of this encounter Visit Diagnoses Not on filedocumented in this encounter
--- OUTSIDE RECORDS SUMMARY | 2025-03-01 16:54 | XMS_ITS | Encounter Summary ---
Author Organization [employer] [facility] Address [address] [place] [address] Care Team Providers Care Trend Investigator Name Role Phone Unavailable Primary Care Provider Unavailabl e Encounter Details Date Type Department Care Team (Late st Contact Info) Description 04/18/2021 Transcribed Document [facility] [place] [address] ProviderPantera MD [address] [place] [address] Social History Tobacco Use Types Packs/Day Years Used Date Smoking Tobacco: Never Assessed Comments Unknown Sex and Gender Information Value Date Recorded Sex Assigned at Not on file Legal Sex Female 7:22 PM CDT Gender Identity Not on file Sexual Orientation Not on file documented as of this encounter Miscellaneous Notes * Cerner Conversion Note - Pantera ProviderMD - 04/18/2021 10:18 AM CDT Final Discharge Planning Entered On: 04/18/2021 10:25 EDT Performed On: 04/18/2021 10:18 EDT by Ramón Hurst, PIPELINE GANG SUPERVISOR NON-EXEMPT Final Discharge Planning Discharge Arrangements : Patient Post-Acute Information Patient Name: SINDY NGUYEN Gender: Female : 47 Age: 75 Years No Post-Acute Placement(s) Listed No Post-Acute Service(s) Listed No [place] Referral(s) Listed Patient Offered Choice/Affiliations Explained : Yes Designation of Choice Signed : Yes Important Medicare Message Reviewed With : Patient Important Medicare Message Reviewed D/T : 04/18/2021 9:55 EDT Follow Up Appointment Scheduled : Yes Is Patient High/Moderate Readmission Risk? : Yes High Readmission Risk - Home with Home Health : Make post-discharge physician appointment within 72 hours of discharge Patient/Family Notified of Plan : Yes Support Person/Pt Rep Notified of Plan : Yes Patient/Family Notified : Yes Is Patient Ready for Discharge? : Yes Physician Notified Patient is Ready for Discharge? : Yes Discharge To Care Management : Home Health Services (Related/SOC within 3 days)-06 Ramón Hurst PIPELINE GANG SUPERVISOR NON-EXEMPT - 04/18/2021 10:18 EDT Final Narrative Note Final Narrative Note : Pt was seen at bedside. She is to D/C today. Pt plans to live with a friend in [place], [place]. Updated address was provided to [employer]. HH will start tomorrow. Walker will be delivered later today to friend's house. Pt's friend will be providing transportation. IMM provided. She does not wish to appeal D/C. No further issues or cocnerns. MD & RN are aware of plan. CM has cleared for D/C. Ramón Hurst SOCIAL WORKER NON-EXEMPT - 04/18/2021 10:18 EDT documented in this encounter Plan of Treatment Not on file documented as of this encounter Visit Diagnoses Not on filedocumented in this encounter
--- OUTSIDE RECORDS SUMMARY | 2025-03-01 16:54 | XMS_ITS | Encounter Summary ---
Author Organization [employer] Address [address] [place] [address] Care Team Providers Care Senior Research Consultant Name Role Phone Unavailable Primary Care Provider Unavailabl e Encounter Details Date Type Department Care Team (Late st Contact Info) Description 04/17/2021 Transcribed Document [facility] [place] [facility] [place] [address] ProviderPantera MD [address] [place] [id number] Social History Tobacco Use Types Packs/Day Years Used Date Smoking Tobacco: Never Assessed Comments Unknown Sex and Gender Information Value Date Recorded Sex Assigned at Not on file Legal Sex Female 7:22 PM CDT Gender Identity Not on file Sexual Orientation Not on file documented as of this encounter Miscellaneous Notes * Cerner Conversion Note - Historical ProviderMD - 04/17/2021 2:00 AM CDT Customer Service Operator Details Entered On: 04/17/2021 3:10 EDT Performed On: 04/17/2021 2:00 EDT by Daphne Snell RN Order Details Transport Mode Order Detail : Stretcher/Gurney Isolation Precautions Order Detail : Standard Precautions Order Detail : N/A IV Order Detail : 1 Oxygen Order Detail : 0 Nurse Collect Order Detail : 0 Lift/Transfer : Minimal Central Line Order Detail : No Room Service : Appropriate Arterial Line : No Patient Needs Meds Crushed/Liquid : No Daphne Snell RN - 04/17/2021 3:10 EDT documented in this encounter Plan of Treatment Not on file documented as of this encounter Visit Diagnoses Not on filedocumented in this encounter
--- OUTSIDE RECORDS SUMMARY | 2025-03-01 16:54 | XMS_ITS | Encounter Summary ---
Author Organization [employer] [facility] Address [address] [place] [address] Care Team Providers Care Coloring Room Worker Name Role Phone Unavailable Primary Care Provider Unavailabl e Encounter Details Date Type Department Care Team (Late st Contact Info) Description 04/19/2021 Transcribed Document [facility] [place] [facility] [place] [address] ProviderPantera MD [address] [place] [address] Social History Tobacco Use Types Packs/Day Years Used Date Smoking Tobacco: Never Assessed Comments Unknown Sex and Gender Information Value Date Recorded Sex Assigned at Not on file Legal Sex Female 7:22 PM CDT Gender Identity Not on file Sexual Orientation Not on file documented as of this encounter Miscellaneous Notes * Cerner Conversion Note - Pantera ProviderMD - 04/19/2021 2:52 PM CDT UM Authorization Entered On: 04/19/2021 14:52 EDT Performed On: 04/19/2021 14:52 EDT by CHRIS LARKIN RN Primary Insurance Authorization Authorization and Policy Numbers : Insurance 1 Health Plan: [employer] P[employer] Policy Number: [id number] Authorization Number: Insurance Primary Name : [employer] P[employer] Policy Number: [id number] Authorization Status-Primary : Notification only Reference Number-Primary : Pend ref #[id number] Authorized Service Begin Date-Primary : 04/14/2021 EDT Authorization Comments-Primary : Per fax received IP approved after p2p completed Historical Authorization Comments-Primary : Comment 1: Per call to Belle Bustamante stated this one is pending approval (CHRIS LARKIN RN 04/19/2021 12:49) Comment 2: Discussed with Maliha Barksdale agreed to attempt p2p. Called Shelli at and setup for 8/5@2pm with Dr Keller (CHRIS LARKIN RN 04/18/2021 10:07) Comment 3: Per VM From Himanshu R denied IP (CHRIS LARKIN RN 04/17/2021 16:06) Comment 4: IP appr per Sound PA, em the sound pa review to ER (NICOLÁS LUIS RN 04/16/2021 12:58) Comment 5: Obs appr per IPAS. Per attending PA pt meets for IP status. Ref to Sound PA (NICOLÁS LUIS RN 04/16/2021 12:15) Comment 6: Ref to [employer] (NICOLÁS LUIS RN 04/15/2021 15:15) Comment 7: Pend ref no per Availity, reviewer has access to [employer] (NICOLÁS LUIS RN 04/15/2021 09:26) CHRIS LARKIN RN - 04/19/2021 14:52 EDT Electronically signed by Olga Gonsalves Conversion Courtroom Deputy Or Calendar Clerk Cerpaolo at 01/02/2023 6:15 PM CDT documented in this encounter Plan of Treatment Not on file documented as of this encounter Visit Diagnoses Not on filedocumented in this encounter
--- OUTSIDE RECORDS SUMMARY | 2025-03-01 16:54 | XMS_ITS | Data Portability ---
Author Organization [place] [facility], [facility] Address [address] [place] [address] Assessment Encounter Date Assessment Date Assessment LastModified by Organization Details LastModified Time 03/07/2024 03/07/2024 This patient had refill of her intrathecal pain pump today. We did review her labs. All seem within normal limits. Her pain pump is at minimal flow. We refilled with intrathecal bupivacaine 5 mg/mL. We started at 2.5 mg/day. She does have antalgic gait. Motor strength of lower extremities is 5/5. There is no gross sensory deficit. We did do a double catheter access at the catheter Access port. We got all fentanyl/bupiv acaine at her pump. She was started at 2.5 mg/day. Refill date is on or before April 11, 2024. She will be refilled that since the in office. abux Not available 03/07/2024 16:16:31 Plan of Treatment Reminders Order Date Submit Date Provider Last Modified By Organization Details Last Modified Time Details Appointments None record ed. Lab None record ed. Referral None record ed. Procedures None record ed. Surgeries None record ed. Imaging None record ed. Medication Orders None record ed. Patient TargetsNo targets recorded. Patient Instructions Encounter Date Encounter Id Patient Instructions Last Modified By Organization Details Last Modified Time 03/07/2024 [id number] back pain: care instructions abux Not available 03/07/2024 16:17:54 learning about relief for back pain abux Not available 03/07/2024 16:17:54 Reason for Referral None Reported. 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 Procedures Surgical History Date Name Laterality Status Provider Name and Address Organization Details Recorded Time 03/07/20 Pump Refill completed Benja Hinojosa MD [address] [facility],[place] [address], [place], [address], [place] [facility] 03/07/2024 16:15:37 Back Surgery completed MAXIMO PRIETOS [place] [facility] 03/07/2024 14:16:36 tonsillectomy completed MAXIMO HALLIE [place] [facility] 03/07/2024 14:16:43 endoscopic surgical procedure on colon and rectum using laser completed MAXIMO STERLING [place] [facility] 03/07/2024 14:17:00 section completed MAXIMO STERLING [place] [facility] 03/07/2024 14:17:09 operation on urinary bladder completed MAXIMO STERLING [place] [facility] 03/07/2024 14:17:19 Imaging Results None recorded. Procedure Notes None recorded. Medical Equipment None Reported. Medications Name Sig Start Date Stop Date Status Note LastModified by Organization Details LastModified Time BUPIVACAI NE 10 DISPENSE IN 20 ML FOR INTRATHE CAROLINE INFUSION 2023 active Not Available Not Available Not Avai lable BUPIVACAI NE 20 dispsens e 20 ml to infuse through intrathe caroline pump 2023 active Not Available Not Available Not Avai lable BUPIVACAI NE 5 dispense 20 ml to infuse through intrathe caroline pump 2023 active Not Available Not Available Not Avai lable BUPIVACAI NE 5 dispense 20 ml to infuse through intrathe caroline pump 04/11 completed concentr ation change Not Available Not Available Not Available BUPIVACAI NE 10 DISPENSE IN 20 ML FOR INTRATHE CAROLINE INFUSION 06/09 completed Not Available Not Available Not Available BUPIVACAI NE 20 dispense 20 ml to infuse through intrathe caroline pump 2023 active Not Available Not Available Not Avai lable BUPIVACAI NE 20 dispense 20 ml to infuse through intrathe caroline pump 2024 active Not Available Not Available Not Avai lable BUPIVACAI NE 20 dispense 20 ml to infuse through intrathe caroline pump 2023 active Not Available Not Available Not Avai lable BUPIVACAI NE 20 dispense 20 ml to infuse through intrathe caroline pump 2023 active Not Available Not Available Not Avai lable dilaudid 3 DISPENSE IN 20 ML FOR INTRATHE CAROLINE INFUSION 02/25 completed Not Available Not Available Not Available BUPIVACAI NE 20 dispense 20 ml to infuse through intrathe caroline pump 2023 active Not Available Not Available Not Avai lable BUPIVACAI NE 20 dispense 20 ml to infuse through intrathe caroline pump 2024 active Not Available Not Available Not Avai lable BUPIVACAI NE 20 dispense 20 ml to infuse through intrathe caroline pump 2024 active Not Available Not Available Not Avai lable furosemid e 40 mg tablet TAKE ONE TABLET BY MOUTH TWICE DAILY active Not Available Not Available No t Available doxycycli ne hyclate 100 mg capsule TAKE ONE CAPSULE BY MOUTH TWICE DAILY FOR 7 DAYS -- FINISH ALL MEDICINE -- active Not Available Not Available No t Available levalbute rol 0.63 mg/3 mL solution for nebulizat ion INHALE THE CONTENTS OF 1 VIAL VIA NEBULIZE R EVERY 6 HOURS NEEDED FOR SHORTNES S OF BREATH active Not Available Not Available No t Available alprazola m 1 mg tablet TAKE ONE TABLET BY MOUTH THREE TIMES DAILY NEEDED FOR ANXIETY MAY CAUSE DROWSINE SS active Not Available Not Available No t Available tizanidin e 4 mg tablet TAKE ONE TABLET BY MOUTH TWICE DAILY MAY CAUSE DROWSINE SS 03/07 completed Not Available Not Available Not Available benzonata te 200 mg capsule TAKE ONE CAPSULE BY MOUTH THREE TIMES DAILY NEEDED FOR cough -SWALLOW WHOLE. DO NOT CRUSH OR CHEW- 03/07 completed Not Available Not Available Not Available metoprolo l succinate ER 50 mg tablet,ex tended release 24 hr TAKE ONE TABLET BY MOUTH EVERY DAY active Not Available Not Available No t Available citalopra m 10 mg tablet TAKE ONE TABLET BY MOUTH EVERY DAY active Not Available Not Available No t Available hydrocodo ne 5 mg-acetam inophen 325 mg tablet TAKE 1 TABLET BY MOUTH EVERY 4 TO 6 HOURS active Not Available Not Available No t Available alendrona te 70 mg tablet TAKE ONE TABLET BY MOUTH ONCE A WEEK --- take first thing in THE morning with lots of water --- 03/07 completed Not Available Not Available Not Available potassium chloride ER 10 mEq tablet,ex tended release TAKE ONE TABLET BY MOUTH three times a WEEK 03/07 completed Not Available Not Available Not Available acetamino phen 300 mg-codein e 30 mg tablet active Not Available Not Available Not Available ciproflox acin 250 mg tablet TAKE ONE TABLET BY MOUTH EVERY TWELVE HOURS FOR 5 DAYS -- FINISH ALL MEDICINE -- active Not Available Not Available No t Available omeprazol e 40 mg capsule,d elayed release TAKE ONE CAPSULE BY MOUTH TWICE DAILY active Not Available Not Available No t Available aspirin 81 mg tablet,de layed release TAKE 1 TABLET BY MOUTH EVERY DAY active Not Available Not Available No t Available tramadol 50 mg tablet TAKE ONE TABLET BY MOUTH TWICE DAILY NEEDED FOR PAIN active Not Available Not Available No t Available bisoprolo l fumarate 10 mg tablet TAKE ONE TABLET BY MOUTH EVERY DAY AT bedtime FOR high blood pressure 03/07 completed Not Available Not Available Not Available bethanech ol chloride 25 mg tablet TAKE 1 TABLET BY MOUTH THREE TIMES DAILY 03/07 completed Not Available Not Available Not Available meloxicam 7.5 mg tablet TAKE ONE TABLET BY MOUTH EVERY DAY --TAKE WITH FOOD-- 03/07 completed Not Available Not Available Not Available levothyro xine 100 mcg tablet TAKE ONE TABLET BY MOUTH EVERY DAY active Not Available Not Available No t Available amitripty line 25 mg tablet TAKE ONE TABLET BY MOUTH EVERY DAY AT BEDTIME active Not Available Not Available No t Available baclofen 10 mg tablet active Not Available Not Available Not Available levothyro xine 125 mcg tablet TAKE ONE TABLET BY MOUTH EVERY DAY active Not Available Not Available No t Available gabapenti n 300 mg capsule TAKE TWO CAPSULES BY MOUTH EVERY DAY AT BEDTIME MAY CAUSE DROWSINE SS active Not Available Not Available No t Available diclofena c sodium 75 mg tablet,de layed release TAKE ONE TABLET BY MOUTH TWICE DAILY NEEDED FOR PAIN --TAKE WITH FOOD-- active Not Available Not Available No t Available monteluka st 10 mg tablet TAKE ONE TABLET BY MOUTH EVERY DAY active Not Available Not Available No t Available hydroxyzi ne HCl 25 mg tablet TAKE ONE TABLET BY MOUTH EVERY DAY AT BEDTIME NEEDED active Not Available Not Available No t Available ergocalci ferol (vitamin D2) 1,250 mcg (50,000 unit) capsule TAKE ONE CAPSULE BY MOUTH ONCE A WEEK active Not Available Not Available No t Available azelastin e 137 mcg (0.1 %) nasal spray INSTILL 2 SPRAY IN EACH NOSTRIL TWICE DAILY 03/07 completed Not Available Not Available Not Available albuterol sulfate HFA 90 mcg/actua tion aerosol inhaler INHALE 2 PUFFS BY MOUTH EVERY 6 HOURS NEEDED FOR SHORTNES S OF BREATH FOR WHEEZING active Not Available Not Available No t Available fluticaso ne propionat e 50 mcg/actua tion nasal spray,caridad pension INSTILL 2 SPRAYS IN EACH NOSTRIL EVERY DAY active Not Available Not Available No t Available metformin ER 500 mg tablet,ex tended release 24 hr TAKE ONE TABLET BY MOUTH TWICE DAILY active Not Available Not Available No t Available lisinopri l 2.5 mg tablet TAKE ONE TABLET BY MOUTH EVERY DAY 03/07 completed Not Available Not Available Not Available diazepam 5 mg tablet TAKE ONE TABLET BY MOUTH TWICE DAILY NEEDED FOR ANXIETY MAY CAUSE DROWSINE SS active Not Available Not Available No t Available levothyro xine 112 mcg tablet TAKE ONE TABLET BY MOUTH EVERY DAY active Not Available Not Available No t Available cyclobenz aprine 5 mg tablet TAKE ONE TABLET BY MOUTH EVERY DAY AT BEDTIME MAY CAUSE DROWSINE SS active Not Available Not Available No t Available Restasis 0.05 % eye drops in a dropperet te INSTILL 1 DROP IN EACH EYE TWICE DAILY 03/07 completed Not Available Not Available Not Available rosuvasta tin 20 mg tablet TAKE ONE TABLET BY MOUTH EVERY DAY AT BEDTIME active Not Available Not Available No t Available nitrofura ntoin monohydra te/macroc rystals 100 mg capsule TAKE ONE CAPSULE BY MOUTH EVERY TWELVE HOURS FOR 5 DAYS take with food active Not Available Not Available No t Available duloxetin e 20 mg capsule,d elayed release TAKE ONE CAPSULE BY MOUTH TWICE DAILY 03/07 completed Not Available Not Available Not Available duloxetin e 30 mg capsule,d elayed release TAKE ONE CAPSULE BY MOUTH TWICE DAILY active Not Available Not Available No t Available levalbute rol HFA 45 mcg/actua tion aerosol inhaler INHALE TWO PUFFS BY MOUTH EVERY 4 HOURS NEEDED FOR copd active Not Available Not Available No t Available Januvia 100 mg tablet TAKE ONE TABLET BY MOUTH EVERY DAY 03/07 completed Not Available Not Available Not Available Symbicort 160 mcg-4.5 mcg/actua tion HFA aerosol inhaler INHALE TWO PUFFS BY MOUTH TWICE DAILY active Not Available Not Available No t Available FeroSul 325 mg (65 mg iron) tablet TAKE ONE TABLET BY MOUTH EVERY DAY active Not Available Not Available No t Available levocetir izine 5 mg tablet TAKE ONE TABLET BY MOUTH EVERY DAY IN THE EVENING active Not Available Not Available No t Available diclofena c 1 % topical gel apply 2 grams topicall y four times daily. apply TO single elbow, wrist, OR HAND. FOR HAND includes palm/fin gers/salvador k of HAND active Not Available Not Available No t Available Savella 100 mg tablet TAKE ONE TABLET BY MOUTH TWICE DAILY 03/07 completed Not Available Not Available Not Available Prolia 60 mg/mL subcutane ous syringe INJECT THE contents of 1 pen (60 MG) SUBCUTAN EOUSLY ONCE EVERY 6 MONTHS active Not Available Not Available No t Available QNASL 80 mcg/actua tion nasal aerosol spray INSTILL 1 TO 2 SPRAYS IN EACH NOSTRIL EVERY DAY 03/07 completed Not Available Not Available Not Available Spiriva Respimat 2.5 mcg/actua tion solution for inhalatio n INHALE TWO PUFFS BY MOUTH EVERY DAY 03/07 completed Not Available Not Available Not Available Linzess 72 mcg capsule TAKE ONE CAPSULE BY MOUTH EVERY DAY active Not Available Not Available No t Available Trelegy Ellipta 100 mcg-62.5 mcg-25 mcg powder for inhalatio n INHALE 1 PUFF BY MOUTH EVERY DAY active Not Available Not Available No t Available Vitals Date Recorded Heart rate Oxygen saturation Oxygen saturation in Arterial blood by Pulse oximetry Body height Body mass index (BMI) Body weight Systolic blood pressure Diastolic blood pressure Provider Name and Address Organization Details Last Updated DateTime 4 78 /min 96 % 96 % 165.1 cm 27.1 kg/m2 84039.5 6 g 136 mm[Hg] 78 mm[Hg] MAXIMO STERLING [place] [facility] 4 14:18:44 Social History Question Answer Notes LastModified by Lieferheld Details LastModified Time Tobacco Smoking Status Current Every Day Smoker MAXIMO STERLING null, [place] [facility] 03/07/2024 14:13:48 In The 14 Days Before Symptom Onset, Have You Had Close Contact With A Laboratory-confirm ed COVID-19 While That Case Was Ill? No [email or web address] Information n ot available 03/07/2024 In The 14 Days Before Symptom Onset, Have You Had Close Contact With A Person Who Is Under Investigation For COVID-19 While That Person Was Ill? No [email or web address] Information not available 03/07/2024 Have You Been To An Area Known To Be High Risk For COVID-19? No Information not available 03/07/2024 Sex: Female Functional Status Question Answer Note LastModified by Lieferheld Details LastModified Time Do you use any illicit or recreational drugs? No [email or web address] Information not available 03/07/2024 Do you or have you ever used any other forms of tobacco or nicotine? No Information not available 03/07/2024 What is your level of alcohol consumption? None [email or web address] Information not available 03/07/2024 Mental Status None recorded. Family History Nothing Reported. Medical History Condition Response Coronary Artery Disease N Gout N Hernia N Head Trauma/Injury N Depression N COPD Y Anxiety Disorder N Arthritis N Acid Reflux (GERD) N Cancer N Stroke N Back Injury N High Cholesterol Y Liver Disease N Headaches N Fibromyalgia N Kidney Disease N Thyroid Problems Y Anemia N Ulcers N Heart Attack (HI) N Diabetes Y Bleeding Disorder N Tuberculosis N AIDS/HIV N Asthma Y Substance Abuse N Hepatitis N Heart Disease N Hypertension Y Osteoporosis N Gynecological HistoryNo gynecological history recorded. Obstetrics History GPAL:G 0 P 0 0 0 0 Past Encounters Encounter ID Performer Location Encounter Start Date Encounter Closed Date Diagnosis/Indication Diagnosis SNOMED-CT Code Diagnosis ICD10 Code Diagnosis Note [id number] Benja Hinojosa MD [address] [place] [address] 03/07/2024 14:10:22 03/08/2024 06:43:58 Radiculopathy due to lumbar intervertebral disc disorder 5358408147 42444 M51.16 Degenerati on of lumbar intervertebral disc 40315282 M51.36 Lumbar radiculopathy 128 645524 M54.16 Lumbar spondylosis 94457 0009 M47.896 Health Concerns Section Related Observation LastModified by Organization Detai ls LastModified Time None Recorded Concern Status LastModified by Organization Details LastModified Time None Recorded Advance Directives Directive None Recorded Payers Insurance Date Sequence Insurance Name Policy Number Policy Lopez Covered Member ID Lopez Member ID Guarantor Name 03/26/2024 2 [facility] Sindy K Charli [id number] Sindy K Wendy 10/11/2024 1 [employer] (MEDICARE REPLACEMENT/ ADVANTAGE - PPO) Sindy K Wendy [id number] Sindy K Wendy 04/20/2024 2 [place] Sindy K Wendy [id number] Sindy K Wendy 12/02/2024 2 [place] [facility] [place] FFS/TRADITIO NAL Sindy K Wendy [id number] Sindy K Wendy 04/05/2024 PAYMENT PLAN Sindy K Wendy 12/02/2024 1 [employer] (MEDICARE REPLACEMENT/ ADVANTAGE - HMO) Sindy K Wendy [id number] Sindy K Wendy Notes Date Note Type Note Provider Name and Address Organization Details Recorded Time 03/07/2024 text/html Back PainReporte d bypatient.Location: lumbar;pain radiating to the legs Quality:sharp;achin g;throbbing;constan t Severity:worsening; pain level 10/10;severe (8-10) Duration:chronic Context:trauma Aggravating Factors:movement/po sitioning; twisting; flexing back; extending back; worse at night; lifting; housework; walking; standing; sitting Associated Symptoms:no fever; no weak limbs; no incontinence; no shortness of breath; no unintentional weight loss; no bowel/bladder symptoms; no recent increase in stress;numbness of the legs/feet;tingling; chills;night sweats;gait instability Previous Injury:previous surgery/procedure date: Benja Hinojosa MD [address], [address], [place] [facility] 03/07/2024 16:18:24 OBGyn Episode No OBEpisode recorded.
--- OUTSIDE RECORDS SUMMARY | 2025-03-01 16:54 | XMS_ITS | Encounter Summary ---
Author Organization [facility] Address [address] [place] [id number] Care Team Providers Care Integration Assistant Name Role Phone Unavailable Primary Care Provider Unavailabl e Encounter Details Date Type Department Care Team (Late st Contact Info) Description 04/18/2021 Transcribed Document [facility] [place] [facility] [place] [address] ProviderPantera MD [address] [place] [id number] Social History Tobacco Use Types Packs/Day Years Used Date Smoking Tobacco: Never Assessed Comments Unknown Sex and Gender Information Value Date Recorded Sex Assigned at Not on file Legal Sex Female 7:22 PM CDT Gender Identity Not on file Sexual Orientation Not on file documented as of this encounter Miscellaneous Notes * Cerner Conversion Note - Pantera ProviderMD - 04/18/2021 3:04 PM CDT [facility] [place], [place] [id number] SINDY NGUYEN :1945 Visit Time:04/14/2021 Your Visit Summary Your Care Team Admitting Physician - RODRIGO BASURTO DO-INT Attending Physician - TATYANA MEDINA MD Primary Care Physician - DENNIS ZAMORANO (REF)MD-INT Referring Physician - SIMON, NOT LISTED Your Diagnosis GI bleed These Are Your Goals Patient Discharge Goal Patient Discharge Goal: Home What to do next Follow-Up Appointments Follow Up with ABE العراقي When 05/09/2021 02:45 PM EDT Comments regarding ureteral dilation seen on imaging at [facility] Where: [address] [facility] [address] [place] [address]- Business (1) Follow Up with DENNIS ZAMORANO When Within 2 to 4 days Comments at the outside hospital you had some abnormalities on CT HEAD. Please discuss this with Dr. Zamorano as these are chronic appearing changes and he needs to follow. Nothing emergent Office has closed for the day, please call in the AM to schedule appointment. Bring discharge instructions with you. Where: [address] [place] [address]- Business (1) Medications What How Much When Instructions Next Dose alendronate 70 Milligram(s) Oral Weekly resume home schedule ALPRAZolam (ALPRAZolam 1 mg oral tablet) 1 Tablet(s) Oral Three Times A Day as needed for for anxiety as needed amitriptyline (amitriptyline 25 mg oral tablet) 1 Tablet(s) Oral At Bedtime at bedtime aspirin (Aspirin Low Dose 81 mg oral delayed release tablet) 1 Tablet(s) Oral Every Day tomorrow beclomethasone nasal (Qnasl 80 mcg/ inh nasal spray) 2 [place]inckley(s) Nasal Every Day as needed for Nasal Congestion as needed bisoprolol (bisoprolol 10 mg oral tablet) 1 Tablet(s) Oral At Bedtime at bedtime budesonide-formoterol (Symbicort 160 mcg-4.5 mcg/ inh inhalation aerosol) 2 Puff(s) Inhalation Two Times A Day this evening diclofenac (diclofenac sodium 75 mg oral delayed release tablet) 1 Tablet(s) Oral Twice a Day With Meals this evening with meal furosemide (furosemide 40 mg oral tablet) 1 Tablet(s) Oral Every Day resume home schedule gabapentin (gabapentin 300 mg oral capsule) 3 Capsule(s) Oral At Bedtime at bedtime levalbuterol (levalbuterol 0.63 mg/ 3 mL inhalation solution) 3 Milliliter(s) Nebulized Inhalation Three Times A Day as needed for Shortness of Breath as needed levocetirizine (levocetirizine 5 mg oral tablet) 1 Tablet(s) Oral Every Evening this evening levothyroxine (levothyroxine 125 mcg (0.125 mg) oral tablet) 1 Tablet(s) Oral Every Day tomorrow lisinopril (lisinopril 2.5 mg oral tablet) 1 Tablet(s) Oral Every Day tomorrow metFORMIN (MetFORMIN (Eqv-Glucophage XR) 500 mg oral tablet, extended release) 1 Tablet(s) Oral Twice a Day With Meals with evening meal milnacipran (Savella 100 mg oral tablet) 1 Tablet(s) Oral Two Times A Day this evening mirabegron (Myrbetriq 50 mg oral tablet, extended release) 1 Tablet(s) Oral Every Day tomorrow montelukast (montelukast 10 mg oral tablet) 1 Tablet(s) Oral Every Evening this evening omeprazole (omeprazole 40 mg oral delayed release capsule) 1 Capsule(s) Oral Two Times A Day this evening rosuvastatin (rosuvastatin 20 mg oral tablet) 1 Tablet(s) Oral At Bedtime at bedtime SITagliptin (Januvia 100 mg oral tablet) 1 Tablet(s) Oral Every Day resume home schedule tiotropium (Spiriva Respimat 60 ACT 2.5 mcg/ inh inhalation aerosol) 2 Puff(s) Inhalation Every Day tomorrow Take your medications faithfully. Do NOT skip medication. Do NOT stop taking medications without the direction of a physician. Carry a list of your medications with you at all times, and take this medication list with you to your first follow up visit. Report any side effects. Avoid herbal remedies unless discussed with your physician. As part of your treatment plan, your physician may have prescribed a limited course of a controlled substance. This medication may be given to help people with moderate or severe pain or for other medical conditions, but there are risks involved with treatment. Common side effects may include nausea, constipation, drowsiness, sweating, itching, dry mouth, and rash. More serious side effects may include cognitive and motor impairment, like problems with thinking, concentrating, alertness, and movement (e.g. slowed reflexes), and driving and operating heavy machinery can be dangerous. It is important for you to talk to your physician if you have these side effects or questions. These controlled substances can produce physical dependence and be habit-forming if taken for an extended period of time, which means that the body has gotten used to them and may experience withdrawal symptoms if they are abruptly stopped. Withdrawal symptoms can include runny nose, sweating, goose bumps, diarrhea, abdominal cramping, rapid heartbeat, difficulty sleeping, and nervousness. Please dispose of unused and medications per your retail pharmacy guidance. Allergies Abilify Cipro (Swelling, Swelling) Pyridium Immunizations This Visit No Immunizations Found Education Materials Low-Fiber Eating Plan Fiber is found in fruits, vegetables, whole grains, and beans. Eating a diet low in fiber helps to reduce how often you have bowel movements and how much you produce during a bowel movement. A low-fiber eating plan may help your digestive system heal if: ??? You have certain conditions, such as Crohn's disease or diverticulitis. ??? You recently had radiation therapy on your pelvis or bowel. ??? You recently had intestinal surgery. ??? You have a new surgical opening in your abdomen (colostomy or ileostomy). ??? Your intestine is narrowed (stricture). Your health care provider will determine how long you need to stay on this diet. Your health care provider may recommend that you work with a diet and senior payroll specialist (dietitian). What are tips for following this plan? General guidelines ??? Follow recommendations from your dietitian about how much fiber you should have each day. ??? Most people on this eating plan should try to eat less than 10 grams (g) of fiber each day. Your daily fiber goal is g. ??? Take vitamin and mineral supplements as told by your health care provider or dietitian. Chewable or liquid forms are best when on this eating plan. Reading food labels ??? Check food labels for the amount of dietary fiber. ??? Choose foods that have less than 2 grams of fiber in one serving. Cooking ??? Use white flour and other allowed grains for baking and cooking. ??? Cook meat using methods that keep it tender, such as braising or poaching. ??? Cook eggs until the yolk is completely solid. ??? Cook with healthy oils, such as olive oil or canola oil. Meal planning ??? Eat 5-6 small meals throughout the day instead of 3 large meals. ??? If you are lactose intolerant: ? Choose low-lactose dairy foods. ? Do not eat dairy foods, if told by your dietitian. ??? Limit fat and oils to less than 8 teaspoons a day. ??? Eat small portions of desserts. What foods are allowed? The items listed below may not be a complete list. Talk with your dietitian about what dietary choices are best for you. Grains All bread and crackers made with white flour. Waffles, pancakes, and Norwegian toast. Bagels. Pretzels. [place] toast, zwieback, and matzoh. Cooked and dried cereals that do not contain whole grains, added fiber, seeds, or dried fruit. Cornmeal. [place]. Hot and cold cereals made with refined corn, wheat, rice, or oats. Plain pasta and noodles. White rice. Vegetables Well-cooked or canned vegetables without skin, seeds, or stems. Cooked potatoes without skins. Vegetable juice. Fruits Soft-cooked or canned fruits without skin and seeds. Peeled ripe banana. Applesauce. Fruit juice without pulp. Meats and other protein foods Ground meat. Tender cuts of meat or poultry. Eggs. Fish, seafood, and shellfish. Smooth nut butters. Tofu. Dairy All milk products and drinks. Lactose-free milks, including rice, soy, and almond milks. Yogurt without fruit, nuts, chocolate, or granola mix-ins. Sour cream. Cottage cheese. Cheese. Beverages Decaf coffee. Fruit and vegetable juices or smoothies (in small amounts, with no pulp or skins, and with fruits from allowed list). Sports drinks. Herbal tea. Fats and oils [place] oil, canola oil, sunflower oil, flaxseed oil, and grapeseed oil. Mayonnaise. Cream cheese. Margarine. Butter. Sweets and desserts Plain cakes and cookies. Cream pies and pies made with allowed fruits. Pudding. Custard. Fruit gelatin. Sherbet. Popsicles. Ice cream without nuts. Plain hard candy. Honey. Jelly. Molasses. Syrups, including chocolate syrup. Chocolate. Marshmallows. Gumdrops. Seasoning and other foods Bouillon. Broth. Cream soups made from allowed foods. Strained soup. Casseroles made with allowed foods. Ketchup. Mild mustard. Mild salad dressings. Plain gravies. Vinegar. Spices in moderation. Salt. Sugar. What foods are not allowed? The items listed below may not be a complete list. Talk with your dietitian about what dietary choices are best for you. Grains Whole wheat and whole grain breads and crackers. Multigrain breads and crackers. [place] bread. Whole grain or multigrain cereals. Cereals with nuts, raisins, or coconut. Bran. Coarse wheat cereals. Granola. High-fiber cereals. Cornmeal or corn bread. Whole grain pasta. Wild or brown rice. Quinoa. Popcorn. Buckwheat. Wheat germ. Vegetables Potato skins. Raw or undercooked vegetables. All beans and calles sprouts. Cooked greens. [place]. Peas. Cabbage. Beets. Broccoli. [place] sprouts. Cauliflower. Mushrooms. Onions. Peppers. Parsnips. Okra. Sauerkraut. Fruit Raw or dried fruit. Berries. Fruit juice with pulp. Prune juice. Meats and other protein foods Tough, fibrous meats with gristle. Fatty meat. Poultry with skin. Fried meat, poultry, or fish. Deli or lunch meats. Sausage, seth, and hot dogs. Nuts and chunky nut butter. Dried peas, beans, and lentils. Dairy Yogurt with fruit, nuts, chocolate, or granola mix-ins. Beverages Caffeinated coffee and teas. Fats and oils Avocado. Coconut. Sweets and desserts Desserts, cookies, or candies that contain nuts or coconut. Dried fruit. Jams and preserves with seeds. Marmalade. Any dessert made with fruits or grains that are not allowed. Seasoning and other foods [place] tortilla chips. Soups made with vegetables or grains that are not allowed. Relish. Horseradish. Pickles. Olives. Summary ??? Most people on a low-fiber eating plan should eat less than 10 grams of fiber a day. Follow recommendations from your dietitian about how much fiber you should have each day. ??? Always check food labels to see the dietary fiber content of packaged foods. In general, a low-fiber food will have fewer than 2 grams of fiber per serving. ??? In general, try to avoid whole grains, raw fruits and vegetables, dried fruit, tough cuts of meat, nuts, and seeds. ??? Take a vitamin and mineral supplement as told by your health care provider or dietitian. This information is not intended to replace advice given to you by your health care provider. Make sure you discuss any questions you have with your health care provider. Document Revised: 12/23/2019 Document Reviewed: 11/03/2017 [employer] Patient Education ?? 2020 [employer]. Sepsis, Diagnosis, Adult Sepsis is a serious bodily reaction to an infection. The infection that triggers sepsis may be from a bacteria, virus, or fungus. Sepsis can result from an infection in any part of your body. Infections that commonly lead to sepsis include skin, lung, and urinary tract infections. Sepsis is a medical emergency that must be treated right away in a hospital. In severe cases, it can lead to septic shock. Septic shock can weaken your heart and cause your blood pressure to drop. This can cause your central nervous system and your body's organs to stop working. What are the causes? This condition is caused by a severe reaction to infections from bacteria, viruses, or fungus. The germs that most often lead to sepsis include: ??? Escherichia coli (E. coli) bacteria. ??? Staphylococcus aureus (staph) bacteria. ??? Some types of Streptococcus bacteria. The most common infections affect these organs: ??? The lung (pneumonia). ??? The kidneys or bladder (urinary tract infection). ??? The skin (cellulitis). ??? The bowel, gallbladder, or pancreas. What increases the risk? You are more likely to develop this condition if: ??? Your body's disease-fighting system (immune system) is weakened. ??? You are age 65 or older. ??? You are male. ??? You had surgery or you have been hospitalized. ??? You have these devices inserted into your body: ? A small, thin tube (catheter). ? IV line. ? Breathing tube. ? Drainage tube. ??? You are not getting enough nutrients from food (malnourished). ??? You have a long-term (chronic) disease, such as cancer, lung disease, kidney disease, or diabetes. ??? You are . What are the signs or symptoms? Symptoms of this condition may include: ??? Fever. ??? Chills or feeling very cold. ??? Confusion or anxiety. ??? Fatigue. ??? Muscle aches. ??? Shortness of breath. ??? Nausea and vomiting. ??? Urinating much less than usual. ??? Fast heart rate (tachycardia). ??? Rapid breathing (hyperventilation). ??? Changes in skin color. Your skin may look blotchy, pale, or blue. ??? Cool, clammy, or sweaty skin. ??? Skin rash. Other symptoms depend on the source of your infection. How is this diagnosed? This condition is diagnosed based on: ??? Your symptoms. ??? Your medical history. ??? A physical exam. Other tests may also be done to find out the cause of the infection and how severe the sepsis is. These tests may include: ??? Blood tests. ??? Urine tests. ??? Swabs from other areas of your body that may have an infection. These samples may be tested (cultured) to find out what type of bacteria is causing the infection. ??? Chest X-ray to check for pneumonia. Other imaging tests, such as a CT scan, may also be done. ??? Lumbar puncture. This removes a small amount of the fluid that surrounds your brain and spinal cord. The fluid is then examined for infection. How is this treated? This condition must be treated in a hospital. Based on the cause of your infection, you may be given an antibiotic, antiviral, or antifungal medicine. You may also receive: ??? Fluids through an IV. ??? Oxygen and breathing assistance. ??? Medicines to increase your blood pressure. ??? Kidney dialysis. This process cleans your blood if your kidneys have failed. ??? Surgery to remove infected tissue. ??? Blood transfusion if needed. ??? Medicine to prevent blood clots. ??? Nutrients to correct imbalances in basic body function (metabolism). You may: ? Receive important salts and minerals (electrolytes) through an IV. ? Have your blood sugar level adjusted. Follow these instructions at home: Medicines ??? Take iqbq-kvz-coteugm and prescription medicines only as told by your health care provider. ??? If you were prescribed an antibiotic, antiviral, or antifungal medicine, take it as told by your health care provider. Do not stop taking the medicine even if you start to feel better. General instructions ??? If you have a catheter or other indwelling device, ask to have it removed as soon as possible. ??? Keep all follow-up visits as told by your health care provider. This is important. Contact a health care provider if: ??? You do not feel like you are getting better or regaining strength. ??? You are having trouble coping with your recovery. ??? You frequently feel tired. ??? You feel worse or do not seem to get better after surgery. ??? You think you may have an infection after surgery. Get help right away if: ??? You have any symptoms of sepsis. ??? You have difficulty breathing. ??? You have a rapid or skipping heartbeat. ??? You become confused or disoriented. ??? You have a high fever. ??? Your skin becomes blotchy, pale, or blue. ??? You have an infection that is getting worse or not getting better. These symptoms may represent a serious problem that is an emergency. Do not wait to see if the symptoms will go away. Get medical help right away. Call your local emergency services (911 in the [place] Do not drive yourself to the hospital. Summary ??? Sepsis is a medical emergency that requires immediate treatment in a hospital. ??? This condition is caused by a severe reaction to infections from bacteria, viruses, or fungus. ??? Based on the cause of your infection, you may be given an antibiotic, antiviral, or antifungal medicine. ??? Treatment may also include IV fluids, breathing assistance, and kidney dialysis. This information is not intended to replace advice given to you by your health care provider. Make sure you discuss any questions you have with your health care provider. Document Revised: 04/08/2019 Document Reviewed: 04/08/2019 [employer] Patient Education ?? 2020 [employer] Gastrointestinal Bleeding Gastrointestinal (GI) bleeding is bleeding somewhere along the path that food travels through the body (digestive tract). This path is anywhere between the mouth and the opening of the butt (anus). You may have blood in your poop (stool) or have black poop. If you throw up (vomit), there may be blood in it. This condition can be mild, serious, or even life-threatening. If you have a lot of bleeding, you may need to stay in the hospital. What are the causes? This condition may be caused by: ??? Irritation and swelling of the esophagus (esophagitis). The esophagus is part of the body that moves food from your mouth to your stomach. ??? Swollen veins in the butt (hemorrhoids). ??? Areas of painful tearing in the opening of the butt (anal fissures). These are often caused by passing hard poop. ??? Pouches that form on the colon over time (diverticulosis). ??? Irritation and swelling (diverticulitis) in areas where pouches have formed on the colon. ??? Growths (polyps) or cancer. Colon cancer often starts out as growths that are not cancer. ??? Irritation of the stomach lining (gastritis). ??? Sores (ulcers) in the stomach. What increases the risk? You are more likely to develop this condition if you: ??? Have a certain type of infection in your stomach (Helicobacter pylori infection). ??? Take certain medicines. ??? Smoke. ??? Drink alcohol. What are the signs or symptoms? Common symptoms of this condition include: ??? Throwing up (vomiting) material that has bright red blood in it. It may look like coffee grounds. ??? Changes in your poop. The poop may: ? Have red blood in it. ? Be black, look like tar, and smell stronger than normal. ? Be red. ??? Pain or cramping in the belly (abdomen). How is this treated? Treatment for this condition depends on the cause of the bleeding. For example: ??? Sometimes, the bleeding can be stopped during a procedure that is done to find the problem (endoscopy or colonoscopy). ??? Medicines can be used to: ? Help control irritation, swelling, or infection. ? Reduce acid in your stomach. ??? Certain problems can be treated with: ? Creams. ? Medicines that are put in the butt (suppositories). ? Warm baths. ??? Surgery is sometimes needed. ??? If you lose a lot of blood, you may need a blood transfusion. If bleeding is mild, you may be allowed to go home. If there is a lot of bleeding, you will need to stay in the hospital. Follow these instructions at home: ??? Take hzvi-ysb-bqdttla and prescription medicines only as told by your doctor. ??? Eat foods that have a lot of fiber in them. These foods include beans, whole grains, and fresh fruits and vegetables. You can also try eating 1???3 prunes each day. ??? Drink enough fluid to keep your pee (urine) pale yellow. ??? Keep all follow-up visits as told by your doctor. This is important. Contact a doctor if: ??? Your symptoms do not get better. Get help right away if: ??? Your bleeding does not stop. ??? You feel dizzy or you pass out (faint). ??? You feel weak. ??? You have very bad cramps in your back or belly. ??? You pass large clumps of blood (clots) in your poop. ??? Your symptoms are getting worse. ??? You have chest pain or fast heartbeats. Summary ??? GI bleeding is bleeding somewhere along the path that food travels through the body (digestive tract). ??? This bleeding can be caused by many things. Treatment depends on the cause of the bleeding. ??? Take medicines only as told by your doctor. ??? Keep all follow-up visits as told by your doctor. This is important. This information is not intended to replace advice given to you by your health care provider. Make sure you discuss any questions you have with your health care provider. Document Revised: 04/13/2019 Document Reviewed: 04/13/2019 [employer] Patient Education ?? 2020 [employer] Emergency Awareness and Preventative Care STROKE is an EMERGENCY Every Minute Counts Act FAST and Check for these signs: FACE Does the face look uneven? ARM Does one arm drift down? SPEECH Does their speech sound strange? TIME Call at any sign of stroke Stroke Risk Factors Atrial Fibrillation (irregular heartbeat) Diabetes Family history of stroke Heart Disease Heavy alcohol use High Blood Pressure High Cholesterol Physical inactivity and obesity Smoking Cigarette Smoking The facts are clear, cigarette smoking will shorten your life. Smoking can cause many illnesses along the way. As a healthcare provider, we recommend that you stop smoking. Assistance with quitting is available by contacting 8-334-WCZF-NOW. This is a free resource providing counseling, support, and referral. Or you may contact your personal physician. [place] Suicide Prevention Lifeline: The National Suicide Prevention Lifeline is a national network of local crisis centers that provides free and confidential emotional support to people in suicidal crisis or emotional distress 24 hours a day, 7 days a week. Don't Wait! Stop a Heart Attack Before it Starts What is a heart attack? A heart attack is damage or to a part of the heart from severely decreased or lack of blood flow to the heart. Over time, arteries can become narrow from the buildup of fat and cholesterol, which is called plaque. The plaque can rupture causing a blood clot to form. When the blood clot forms, the artery can become severely narrowed or completely blocked, causing a heart attack. Heart attack is the leading cause of in the [place]. 85% of muscle damage occurs within the first 2 hours. Delay in the recognition of heart attack symptoms increases the chances of . Know the early symptoms of a heart attack: Nausea Feeling of fullness in chest Jaw Pain Pain that travels down one or both arms Fatigue/being tired Anxiety Back Pain Chest pressure, squeezing, or discomfort Shortness of breath Sweating, or a cold sweat Feeling of impending doom There are unusual signs of a heart attack, too! Women, the elderly, and diabetics may present with atypical symptoms: Fainting/dizziness Weakness Confusion Risk Factors for a Heart Attack Some heart disease risk factors, such as age and family history, cannot be changed. Others, like smoking and lack of exercise, can be changed. Smoking High Cholesterol High Blood Pressure Family History Obesity Age Gender (Males are at higher risk) Lack of Exercise Diabetes Diet Stress Excessive Alcohol Intake If you or someone you know is experiencing the signs and symptoms of a heart attack, DON???T DELAY. Call immediately and seek help. If someone collapses, perform CPR! Do not attempt to drive if you are having symptoms of heart attack. Hands-Only CPR Why Hands-Only CPR? Hands-Only CPR has been shown to be as effective as conventional CPR for cardiac arrests that occur outside of a hospital. Survival depends on immediately receiving CPR from someone nearby. How do you perform Hands-Only CPR? There are two easy steps: Call if you see a teen or adult collapse Push hard and fast in the center of the chest at a beat of 100 beats per minute. Save a life! 4 WAYS TO GET AHEAD OF SEPSIS SEPSIS is a MEDICAL EMERGENCY. Time matters! Infections put you and your family at risk for a life-threatening condition called sepsis. Sepsis is the body's extreme response to an infection. It is life-threatening, and without timely treatment, sepsis can rapidly lead to tissue damage, organ failure, and . Sepsis happens when an infection you already have-in your skin, lungs, urinary tract or somewhere else-triggers a chain reaction throughout your body. 1 PREVENT INFECTIONS Take good care of chronic conditions. Talk to your doctor about getting the recommended vaccines. 2 PRACTICE GOOD HYGIENE Wash your hands frequently. Keep cuts or open sores clean and covered until they are healed. 3 KNOW THE SYMPTOMS Confusion or disorientation Shortness of breath High heart rate Fever, shivering, or feeling very cold Extreme pain or discomfort Clammy or sweaty skin 4 ACT FAST Get medical care IMMEDIATELY if you suspect sepsis or if you have an infection that is not getting better or is getting worse. To learn more about sepsis and how to prevent infections, visit www.cdc.gov/sepsis. Test Results Laboratory or Other Results This Visit (last charted value for your 04/14/2021 visit) Hematology 04/16/2021 6:23 AM WBC: 11.9 K/uL -- Normal range between ( 4.5 and 10.5 ) RBC: 4.11 Million/uL -- Normal range between ( 3.93 and 5.22 ) Hct: 36.9 % -- Normal range between ( 34.1 and 44.9 ) Hgb: 10.5 g/dL -- Normal range between ( 11.2 and 15.7 ) Platelet Count: 296 K/uL -- Normal range between ( 163 and 369 ) MCH: 25.5 pg -- Normal range between ( 25.6 and 32.2 ) MCHC: 28.5 Gram/dL -- Normal range between ( 32.2 and 36.5 ) MCV: 89.8 fL -- Normal range between ( 79.0 and 94.8 ) Slide Review: No RDW: 16.1 % -- Normal range between ( 11.7 and 14.9 ) MPV: 10.1 fL -- Normal range between ( 9.4 and 12.4 ) 04/15/2021 0:49 AM Eos %: 0.1 % -- Normal range between ( 0.0 and 7.0 ) [place] #: 1.39 K/uL -- Normal range between ( 0.16 and 1.00 ) Eos #: 0.02 x10(3)/uL -- Normal range between ( 0.00 and 0.80 ) [place] %: 8.8 % -- Normal range between ( 3.0 and 9.0 ) Sed Rate Auto: 41 mm/Hr -- Normal range between ( 0 and 30 ) Baso %: 0.4 % -- Normal range between ( 0.0 and 1.5 ) Hypochromia: 2+ RBC Morphology: Abnormal Baso #: 0.06 x10(3)/uL -- Normal range between ( 0.00 and 0.20 ) Neut %: 79.8 % -- Normal range between ( 34.0 and 71.0 ) Ovalocytes: 1+ Neut #: 12.58 K/uL -- Normal range between ( 1.56 and 6.13 ) Lymph %: 10.3 % -- Normal range between ( 19.3 and 53.1 ) Platelet Ct Estimate: Increased Lymph #: 1.63 x10(3)/uL -- Normal range between ( 1.00 and 3.90 ) Poikilocytosis: 1+ IG#: 0.09 x10(3)/uL -- Normal range between ( 0.00 and 0.05 ) IG%: 0.60 % -- Normal range between ( 0.00 and 0.60 ) General Chemistry 04/17/2021 6:01 AM Creatinine Level: 0.70 mg/dL -- Normal range between ( 0.55 and 1.02 ) Sodium Level: 138 mmol/L -- Normal range between ( 136 and 146 ) Potassium Level: 3.7 mmol/L -- Normal range between ( 3.5 and 5.1 ) Chloride Level: 104 mmol/L -- Normal range between ( 102 and 112 ) Carbon Dioxide Level: 29 mmol/L -- Normal range between ( 21 and 32 ) Anion Gap: 9 -- Normal range between ( 9 and 20 ) Bun/Creatinine: 12.9 -- Normal range between ( 8.0 and 20.0 ) Calcium Level: 8.9 mg/dL -- Normal range between ( 8.4 and 10.1 ) eGFR : >60 mL/min/1.73m2 eGFR NonAfrican: >60 mL/min/1.73m2 Glucose Level: 100 mg/dL -- Normal range between ( 74 and 106 ) Blood Urea Nitrogen: 9 mg/dL -- Normal range between ( 7 and 22 ) 04/17/2021 5:41 AM Glucose POC2: 99 mg/dL -- Normal range between ( 70 and 110 ) Device Comment 1: Device Comment 1 04/16/2021 6:23 AM Hgb A1C: 6.8 % eAVG Glucose: 148 mg/dL 04/15/2021 4:17 PM Lactic Acid Level: 0.8 mmol/L -- Normal range between ( 0.4 and 2.0 ) 04/15/2021 0:49 AM Bilirubin Total: 0.3 mg/dL -- Normal range between ( 0.2 and 1.2 ) A/G Ratio: 0.8 -- Normal range between ( 1.1 and 2.5 ) ALT: 28 Units/Liter -- Normal range between ( 13 and 56 ) AST: 33 Units/Liter -- Normal range between ( 5 and 37 ) Globulin: 3.7 Gram/dL -- Normal range between ( 1.5 and 4.5 ) Alk Phos: 72 Units/Liter -- Normal range between ( 27 and 136 ) CRP: 0.80 mg/dL -- Normal range between ( 0.00 and 0.30 ) Magnesium Level: 2.2 mg/dL -- Normal range between ( 1.5 and 2.4 ) Protein Total: 6.8 Gram/dL -- Normal range between ( 6.4 and 8.2 ) Albumin Level: 3.1 Gram/dL -- Normal range between ( 3.4 and 5.0 ) Coagulation 04/15/2021 0:49 AM INR: 1.0 -- Normal range between ( 0.9 and 1.2 ) PT: 11.1 Second(s) -- Normal range between ( 9.2 and 12.0 ) Endocrinology 04/15/2021 4:46 PM Procalcitonin: <0.25 ng/mL -- Normal range between ( 0.00 and 2.00 ) 04/15/2021 0:49 AM TSH: 0.360 mcInt Units/mL -- Normal range between ( 0.358 and 3.740 ) Diagnostic Radiology 04/18/2021 8:00 AM CR Chest 1 Vw Portable: CR Chest 1 Vw Portable Patient Name:SINDY NGUYEN I have received and understand this information and was given the opportunity to ask questions. Patient/Passenger Flagman Name: Patient/Passenger Flagman Signature: Relationship to Patient: Clinician/Hospital Passenger Flagman Signature: Date: documented in this encounter Plan of Treatment Not on file documented as of this encounter Visit Diagnoses Not on filedocumented in this encounter
--- OUTSIDE RECORDS SUMMARY | 2025-03-01 16:54 | XMS_ITS | Encounter Summary ---
Author Organization [employer] Address [address] [place] [address] Care Team Providers Care Manager Molecular Name Role Phone Unavailable Primary Care Provider Unavailabl e Encounter Details Date Type Department Care Team (Late st Contact Info) Description 04/18/2021 Transcribed Document [facility] [place] [facility] [place] [address] ProviderPantera MD [address] [place] [address] [id number] Social History Tobacco Use Types Packs/Day Years Used Date Smoking Tobacco: Never Assessed Comments Unknown Sex and Gender Information Value Date Recorded Sex Assigned at Not on file Legal Sex Female 7:22 PM CDT Gender Identity Not on file Sexual Orientation Not on file documented as of this encounter Miscellaneous Notes * Cerner Conversion Note - Historical ProviderMD - 04/18/2021 5:00 AM CDT Chart Check - Review Order Profile Entered On: 04/18/2021 3:54 EDT Performed On: 04/18/2021 5:00 EDT by Daphne Snell RN Chart Check Powerplans Initiated/Discontinued as Appropriate : Yes All Active Orders Reviewed : Yes Daphne Snell RN - 04/18/2021 3:54 EDT Electronically signed by Major [facility] Conversion Awake Overnight Counselor Cerner at 01/02/2023 6:20 PM CDT documented in this encounter Plan of Treatment Not on file documented as of this encounter Visit Diagnoses Not on filedocumented in this encounter
--- OUTSIDE RECORDS SUMMARY | 2025-03-01 16:54 | XMS_ITS | Clinical Summary ---
Author Organization [employer] Address [address] [place] [address] Care Team Providers Care Aboriginal Education Worker Coordinator Name Role Phone Unavailable Primary Care Provider [...]
--- OUTSIDE RECORDS SUMMARY | 2025-03-01 16:54 | XMS_ITS | Encounter Summary ---
Author Organization [employer] Address [address] [place] [address] Care Team Providers Care Bootmaker Name Role Phone Unavailable Primary Care Provider Unavailabl e Encounter Details Date Type Department Care Team (Late st Contact Info) Description 04/18/2021 Transcribed Document [facility] [place] [facility] [place] [address] ProviderPantera MD [address] [place] [address] [phone] Social History Tobacco Use Types Packs/Day Years Used Date Smoking Tobacco: Never Assessed Comments Unknown Sex and Gender Information Value Date Recorded Sex Assigned at Not on file Legal Sex Female 7:22 PM CDT Gender Identity Not on file Sexual Orientation Not on file documented as of this encounter Miscellaneous Notes * Cerner Conversion Note - Historical ProviderMD - 04/18/2021 2:00 AM CDT Baling Press Operator Details Entered On: 04/18/2021 3:42 EDT Performed On: 04/18/2021 2:00 EDT by Daphne Snell RN Order [...] Crushed/Liquid : No Daphne Snell RN - 04/18/2021 3:41 EDT documented in this encounter Plan of Treatment Not on file documented as of this encounter Visit Diagnoses Not on filedocumented in this encounter
--- OUTSIDE RECORDS SUMMARY | 2025-03-01 16:54 | XMS_ITS | Encounter Summary ---
Author Organization [facility] [employer] Address [address] [place] [address] Care Team Providers Care Bag Filler Machine Operator Name Role Phone Unavailable Primary Care Provider Unavailabl e Encounter Details Date Type Department Care Team (Late st Contact Info) Description 04/18/2021 Transcribed Document [facility] [place] [facility] [address] ProviderPantera MD [address] [place] [address] [phone] Social History Tobacco Use Types Packs/Day Years Used Date Smoking Tobacco: Never Assessed Comments Unknown Sex and Gender Information Value Date Recorded Sex Assigned at Not on file Legal Sex Female 7:22 PM CDT Gender Identity Not on file Sexual Orientation Not on file documented as of this encounter Miscellaneous Notes * Cerner Conversion Note - Pantera ProviderMD - 04/18/2021 2:23 PM CDT Patient Resource Center Entered On: 04/18/2021 14:25 EDT Performed On: 04/18/2021 14:23 EDT by Vanessa Hilliard, Filling Hauler Weaving Patient Resource Center Provider Status : EST Other Established Provider Name : SALVADORJacinta ZAMORANO Patient Phone Number : [phone] Patient Insurance Type : Medicare Source of Referral : Case management Location of Patient : Case management referral Primary Care Scheduled : No Specialty Care Scheduled : Yes Specialty Type Scheduled2 : Urology Urology Provider Name : ABE العراقي Urology Appointment Date/Timie : 05/09/2021 14:45 EDT Qualify for Diabetes and/or Nutrition Referral : No Wound Care Appointment Made : No Why Patient Visited ED- Specialty spent : Other How Patient Arrived at ED : Other Primary Language : Burkinan Patient Resource Center Comment : Patient needs follow up appointments. Called offices and Salvador Zamorano' office had already closed. Patient to call in AM. Called and scheduled appointment with Dr. العراقي. Follow Up Needed : No Vanessa Hilliard, Filling Hauler Weaving - 04/18/2021 14:23 EDT Electronically signed by Major, [facility] Conversion Plastic Block Boiler Reliner Cerner at 01/02/2023 6:26 PM CDT documented in this encounter Plan of Treatment Not on file documented as of this encounter Visit Diagnoses Not on filedocumented in this encounter
--- OUTSIDE RECORDS SUMMARY | 2025-03-01 16:54 | XMS_ITS | Encounter Summary ---
Author Organization [employer] Address [address] [place] [address] Care Team Providers Care Assembler Wire Group Name Role Phone Unavailable Primary Care Provider Unavailabl e Encounter Details Date Type Department Care Team (Late st Contact Info) Description 04/19/2021 Transcribed Document [facility] [place] [facility] [place] [address] ProviderPantera MD [address] [place] [address] Social History Tobacco Use Types Packs/Day Years Used Date Smoking Tobacco: Never Assessed Comments Unknown Sex and Gender Information Value Date Recorded Sex Assigned at Not on file Legal Sex Female 7:22 PM CDT Gender Identity Not on file Sexual Orientation Not on file documented as of this encounter Miscellaneous Notes * Cerner Conversion Note - Pantera ProviderMD - 04/19/2021 12:49 PM CDT UM Authorization Entered On: 04/19/2021 12:49 EDT Performed On: 04/19/2021 12:49 EDT by CHRIS LARKIN RN Primary Insurance Authorization Authorization and Policy Numbers : Insurance 1 Health Plan: [employer] PPO Policy Number: [id number] Authorization Number: Insurance Primary Name : [employer] PPO Policy Number: [id number] Authorization Status-Primary : Denial - admission Reference Number-Primary : Pend ref #[id number] Authorized Service Begin Date-Primary : 04/14/2021 EDT Authorization Comments-Primary : [facility] Historical Authorization Comments-Primary : Comment 1: Discussed with Maliha Barksdale agreed to attempt p2p. Called Shelli at and setup for 04/18@2pm with Dr Keller (CHRIS LARKIN RN 04/18/2021 10:07) Comment 2: Per VM From Himanshu R denied IP (CHRIS LARKIN RN 04/17/2021 16:06) Comment 3: IP appr per Sound PA, em the sound pa review to ER (NICOLÁS LUIS RN 04/16/2021 12:58) Comment 4: Obs appr per IPAS. Per attending PA pt meets for IP status. Ref to Sound PA (NICOLÁS LUIS RN 04/16/2021 12:15) Comment 5: Ref to Xpas (NICOLÁS LUIS RN 04/15/2021 15:15) Comment 6: Pend ref no per Availity, reviewer has access to Cerner (NICOLÁS LUIS RN 04/15/2021 09:26) CHRIS LARKIN, REMINGTON - 04/19/2021 12:49 EDT documented in this encounter Plan of Treatment Not on file documented as of this encounter Visit Diagnoses Not on filedocumented in this encounter
--- OUTSIDE RECORDS SUMMARY | 2025-03-01 16:54 | XMS_ITS | Encounter Summary ---
Author Organization [employer] [facility] Address [address] [place] [address] Care Team Providers Care Ship Pilot Dispatcher Name Role Phone Unavailable Primary Care Provider Unavailabl e Encounter Details Date Type Department Care Team (Late st Contact Info) Description 04/18/2021 Transcribed Document [facility] [place] [facility] [place] [address] ProviderPantera MD [address] [place] [address] [phone] Social History Tobacco Use Types Packs/Day Years Used Date Smoking Tobacco: Never Assessed Comments Unknown Sex and Gender Information Value Date Recorded Sex Assigned at Not on file Legal Sex Female 7:22 PM CDT Gender Identity Not on file Sexual Orientation Not on file documented as of this encounter Miscellaneous Notes * Cerner Conversion Note - Pantera ProviderMD - 04/18/2021 3:57 PM CDT Nursing Discharge Summary Entered On: 04/18/2021 15:58 EDT Performed On: 04/18/2021 15:57 EDT by Celena Lucas RN Discharge Documentation Patient Disposition, General : Discharge Mode Of Departure, General Discharge : Private vehicle Discharge Instructions Reviewed With, Opportunity For Questions Given : Patient Patient Education Completed : Yes Teaching Method : Explanation, Printed materials Teaching Evaluation : Verbalizes understanding Education Comment : meds, follow up appointments, diet, s/s of complications, signs and symptoms of stroke and heart attack Celena Lucas RN - 04/18/2021 15:57 EDT documented in this encounter Plan of Treatment Not on file documented as of this encounter Visit Diagnoses Not on filedocumented in this encounter
--- OUTSIDE RECORDS SUMMARY | 2025-03-01 16:54 | XMS_ITS | Encounter Summary ---
Author Organization [employer] Address [address] [place] [address] Care Team Providers Care Grip Boss Name Role Phone Unavailable Primary Care Provider Unavailabl e Encounter Details Date Type Department Care Team (Late st Contact Info) Description 04/18/2021 Transcribed Document [facility] [place] [facility] [place] [address] ProviderPantera MD [address] [place] [address] Social History Tobacco Use Types Packs/Day Years Used Date Smoking Tobacco: Never Assessed Comments Unknown Sex and Gender Information Value Date Recorded Sex Assigned at Not on file Legal Sex Female 7:22 PM CDT Gender Identity Not on file Sexual Orientation Not on file documented as of this encounter Miscellaneous Notes * Cerner Conversion Note - Historical ProviderMD - 04/18/2021 2:43 PM CDT Discharge Summary, PT Entered On: 04/18/2021 14:45 EDT Performed On: 04/18/2021 14:43 EDT by ERICK STALEY PTA Discharge Summary Discharge Summary Provider Notified : Nursing, Physical Therapy Reason for Discharge : Discharge order Discharged to, Therapy : Home, with home health (Comment: S1 [ERICK STALEY PTA - 04/18/2021 14:43 EDT] ) ERICK STALEY PTA - 04/18/2021 14:43 EDT Discharge Summary Comment, PT : pt has discharge orders in from hospital to home with home health, per last PTx on 04/17 - pt min A for supine <> sit <> stand, pt ambulated 10' then 100' with RWx and min A Reviewed by and agreed to by PT RAFAEL EDWARDS, PT - 04/19/2021 7:03 EDT Short Term Goals Mobility/Bed Mobility STG PT Grid Goal #1 Goal #2 Activity : Supine to sit Sit to stand Assist : Supervision or set-up Supervision or set-up Date to Meet : 04/23/2021 EDT 04/24/2021 EDT Goal Status : Goal met Not met Date Met : 04/17/2021 EDT ERICK STALEY PTA - 04/18/2021 14:43 EDT ERICK STALEY PTA - 04/18/2021 14:43 EDT Ambulation STG Grid Goal #1 Device : Walker, front wheel Distance : 150' Assist : Assist, minimal Date to Meet : 04/23/2021 EDT Goal Status : Not met ERICK STALEY PTA - 04/18/2021 14:43 EDT Welt Sole Layer Goals Mobility/Bed Mobility LTG PT Grid Goal #1 Goal #2 Activity : Supine to sit Sit to stand Assist : Independent, modified Independent, modified Date to Meet : 04/30/2021 EDT 04/30/2021 EDT Goal Status : Not met Not met ERICK STALEY PTA - 04/18/2021 14:43 EDT ERICK STALEY PTA - 04/18/2021 14:43 EDT Ambulation LTG Grid Goal #1 Device : Walker, front wheel Distance : 200' Assist : Supervision or set-up Date to Meet : 04/30/2021 EDT Goal Status : Not met ERICK STALEY PTA - 04/18/2021 14:43 EDT Electronically signed by Olga Gonsalves Conversion Security And Compliance Project Manager Cerner at 01/02/2023 6:02 PM CDT documented in this encounter Plan of Treatment Not on file documented as of this encounter Visit Diagnoses Not on filedocumented in this encounter
--- OUTSIDE RECORDS SUMMARY | 2025-03-01 16:54 | XMS_ITS | Encounter Summary ---
Author Organization [employer] [facility] Address [address] [place] [address] Care Team Providers Care Student Life Vice President Name Role Phone Unavailable Primary Care Provider Unavailabl e Encounter Details Date Type Department Care Team (Late st Contact Info) Description 04/18/2021 Transcribed Document [facility] [place] [facility] [place] [address] ProviderPantera MD [address] [place] [address] Social History Tobacco Use Types Packs/Day Years Used Date Smoking Tobacco: Never Assessed Comments Unknown Sex and Gender Information Value Date Recorded Sex Assigned at Not on file Legal Sex Female 7:22 PM CDT Gender Identity Not on file Sexual Orientation Not on file documented as of this encounter Miscellaneous Notes * Cerner Conversion Note - Pantera ProviderMD - 04/18/2021 10:07 AM CDT UM Authorization Entered On: 04/18/2021 10:07 EDT Performed On: 04/18/2021 10:07 EDT by CHRIS LARKIN RN Primary Insurance Authorization Authorization and Policy Numbers : Insurance 1 Health Plan: [employer] CHO[employer] PPO Policy Number: [id number] Authorization Number: Insurance Primary Name : [employer] CHOICE PPO Policy Number: [id number] Authorization Status-Primary : Denial - admission Reference Number-Primary : Pend ref #[id number] Authorized Service Begin Date-Primary : 04/14/2021 EDT Authorization Comments-Primary : Discussed with Maliha Barksdale agreed to attempt p2p. Called Shelli at and setup for 04/18@2pm with Dr Keller Historical Authorization Comments-Primary : Comment 1: Per VM From Himanshu LUCERO (CHRIS LARKIN RN 04/17/2021 16:06) Comment 2: IP appr per Karin CARBALLO, em the sound pa review to ER (NICOLÁS LUIS RN 04/16/2021 12:58) Comment 3: Obs appr per IPAS. Per attending PA pt meets for IP status. Ref to Sound PA (NICOLÁS LUIS RN 04/16/2021 12:15) Comment 4: Ref to Xpas (NICOLÁS LUIS RN 04/15/2021 15:15) Comment 5: Pend ref no per Availity, reviewer has access to Cerner (NICOLÁS LUIS RN 04/15/2021 09:26) CHRIS LARKIN RN - 04/18/2021 10:07 EDT Electronically signed by Olga Gonsalves Conversion Economic Development Coordinator Cerner at 01/02/2023 6:14 PM CDT documented in this encounter Plan of Treatment Not on file documented as of this encounter Visit Diagnoses Not on filedocumented in this encounter
--- OUTSIDE RECORDS SUMMARY | 2025-03-01 16:54 | XMS_ITS | Encounter Summary ---
Author Organization [employer] [facility] Address [address] [place] [address] Care Team Providers Care Forestry Workers Name Role Phone Unavailable Primary Care Provider Unavailabl e Encounter Details Date Type Department Care Team (Late st Contact Info) Description 04/18/2021 Transcribed Document [facility] [place] [facility] [place] [address] ProviderPantera MD [address] [place] [address] [phone] Social History Tobacco Use Types Packs/Day Years Used Date Smoking Tobacco: Never Assessed Comments Unknown Sex and Gender Information Value Date Recorded Sex Assigned at Not on file Legal Sex Female 7:22 PM CDT Gender Identity Not on file Sexual Orientation Not on file documented as of this encounter Miscellaneous Notes * Cerner Conversion Note - Pantera ProviderMD - 04/18/2021 12:39 PM CDT Stroke/Warfarin Instructions Entered On: 04/18/2021 12:39 EDT Performed On: 04/18/2021 12:39 EDT by Celena Lucas RN Stroke/Warfarin Instructions Stroke/TIA Discharge Ins : N/A Warfarin Discharge Ins : N/A Celena Lucas RN - 04/18/2021 12:39 EDT documented in this encounter Plan of Treatment Not on file documented as of this encounter Visit Diagnoses Not on filedocumented in this encounter
--- OUTSIDE RECORDS SUMMARY | 2025-03-01 16:55 | XMS_ITS | Encounter Summary ---
Author Organization [employer] [facility] [facility] [employer] Address [address] [place] [address] Care Team Providers Care Band Sawing Machine Operator Name Role Phone Unavailable Primary Care Provider Unavailabl e Encounter Details Date Type Department Care Team (Late st Contact Info) Description 04/17/2021 Transcribed Document [facility] [place] [facility] [place] [address] ProviderPantera MD [address] [place] [address] [id number] Social History Tobacco Use Types Packs/Day Years Used Date Smoking Tobacco: Never Assessed Comments Unknown Sex and Gender Information Value Date Recorded Sex Assigned at Not on file Legal Sex Female 7:22 PM CDT Gender Identity Not on file Sexual Orientation Not on file documented as of this encounter Miscellaneous Notes * Cerner Conversion Note - Historical ProviderMD - 04/17/2021 5:00 AM CDT Chart Check - Review Order Profile Entered On: 04/17/2021 5:53 EDT Performed On: 04/17/2021 5:00 EDT by Daphne Snell RN Chart Check Powerplans Initiated/Discontinued as Appropriate : Yes All Active Orders Reviewed : Yes Daphne Snell RN - 04/17/2021 5:53 EDT Electronically signed by Major [facility] Conversion Sexologist Cerner at 01/02/2023 6:13 PM CDT documented in this encounter Plan of Treatment Not on file documented as of this encounter Visit Diagnoses Not on filedocumented in this encounter
--- OUTSIDE RECORDS SUMMARY | 2025-03-01 16:55 | XMS_ITS | Encounter Summary ---
Author Organization [employer] [facility] [employer] Address [address] [place] [address] Care Team Providers Care Computer Applications Engineer Name Role Phone Unavailable Primary Care Provider Unavailabl e Encounter Details Date Type Department Care Team (Late st Contact Info) Description 04/16/2021 Transcribed Document [facility] [place] [address] ProviderPantera MD [address] [place] [address] [id number] Social History Tobacco Use Types Packs/Day Years Used Date Smoking Tobacco: Never Assessed Comments Unknown Sex and Gender Information Value Date Recorded Sex Assigned at Not on file Legal Sex Female 7:22 PM CDT Gender Identity Not on file Sexual Orientation Not on file documented as of this encounter Miscellaneous Notes * Cerner Conversion Note - Pantera ProviderMD - 04/16/2021 3:47 PM CDT On Going Discharge Planning Entered On: 04/16/2021 15:54 EDT Performed On: 04/16/2021 15:47 EDT by Ramón Hurst, PRESSER AND BLOCKER KNITTED GOODS NON-EXEMPT Care Management Progress Note Discharge Arrangements : Patient Post-Acute Information Patient Name: SINDY NGUYEN Gender: Female : [birth year] Age: 75 Years No Post-Acute Placement(s) Listed No Post-Acute Service(s) Listed No Curaspan Referral(s) Listed Discharge Options Discussed with Patient : Acute rehabilitation, Discharge transportation, DME, Home Health, custodial, Short term rehabilitation Barriers to Discharge Identified : Clinical Condition of Patient Barriers to Discharge Unresolved : Clinical Condition of Patient Patient Discharge Goal : Home Patient Offered Choice/Affiliations Explained : Yes Designation of Choice Signed : Yes List/Info Provided Pt/Fam/Support Person : Home health Were Referrals Sent to Post Acute Providers : Yes CMS Quality Web Info Shared w Pt/Fam : Yes Discharge Plan Comment : Pt agreeable to HH services, but declines placement. Did you Attend Multidisciplinary Rounds? : Yes Ramón Hurst PRESSER AND BLOCKER KNITTED GOODS NON-EXEMPT - 04/16/2021 15:47 EDT Narrative Progress Note Narrative Progress Note : Pt is day 2 of 3 day DRG. She is moderate readmission risk with BOOST 3. She is getting blood cultures & urology is following pt. She has a Sagastume. Pt is on 3L O2 & that is her baseline. She is getting IV fluids. CM spoke with pt regarding MD recommendation of placement for rehab. Pt declines rehab placement. She has agreed to HH referral for rehab. HH referral was sent via [employer]. Preferred provider is [facility] & Choice Provider form was completed. CM notified hospitalist of pt's decision for HH services. Plan is to return home with HH services. Pt's daughter will provide transportation. CM will continue to follow. Ramón Hurst SOCIAL WORKER NON-EXEMPT - 04/16/2021 15:47 EDT documented in this encounter Plan of Treatment Not on file documented as of this encounter Visit Diagnoses Not on filedocumented in this encounter
--- OUTSIDE RECORDS SUMMARY | 2025-03-01 16:55 | XMS_ITS | Encounter Summary ---
Author Organization [facility] Address [address] [place] [address] Care Team Providers Care Dry Cell Tester Name Role Phone Unavailable Primary Care Provider Unavailabl e Encounter Details Date Type Department Care Team (Late st Contact Info) Description 04/16/2021 Transcribed Document [facility] [place] [facility] [place] [address] ProviderPantera MD [address] [place] [address] Social History Tobacco Use Types Packs/Day Years Used Date Smoking Tobacco: Never Assessed Comments Unknown Sex and Gender Information Value Date Recorded Sex Assigned at Not on file Legal Sex Female 7:22 PM CDT Gender Identity Not on file Sexual Orientation Not on file documented as of this encounter Miscellaneous Notes * Cerner Conversion Note - Pantera ProviderMD - 04/16/2021 12:15 PM CDT UM Authorization Entered On: 04/16/2021 12:16 EDT Performed On: 04/16/2021 12:15 EDT by NICOLÁS LUIS RN Primary Insurance Authorization Authorization and Policy Numbers : Insurance 1 Health Plan: [employer] PPO Policy Number: [id number] Authorization Number: Insurance Primary Name : [employer] PPO Policy Number: [id number] Authorization Status-Primary : Awaiting callback Reference Number-Primary : Pend ref #[id number] Authorized Service Begin Date-Primary : 04/14/2021 EDT Authorization Comments-Primary : Obs appr per IPAS. Per attending PA pt meets for IP status. Ref to Sound PA Historical Authorization Comments-Primary : Comment 1: Ref to Xpas (NICOLÁS LUIS RN 04/15/2021 15:15) Comment 2: Pend ref no per Availity, reviewer has access to Cerner (NICOLÁS LUIS RN 04/15/2021 09:26) NICOLÁS LUIS RN - 04/16/2021 12:15 EDT Electronically signed by Major [facility] Conversion Linen Room Supervisor Cerner at 01/02/2023 6:18 PM CDT documented in this encounter Plan of Treatment Not on file documented as of this encounter Visit Diagnoses Not on filedocumented in this encounter
--- OUTSIDE RECORDS SUMMARY | 2025-03-01 16:55 | XMS_ITS | Encounter Summary ---
Author Organization [employer] [facility] [employer] Address [address] [place] [address] Care Team Providers Care Oil Heater Installer Name Role Phone Unavailable Primary Care Provider Unavailabl e Encounter Details Date Type Department Care Team (Late st Contact Info) Description 04/16/2021 Transcribed Document [facility] [place] [facility] [place] [address] ProviderPantera MD [address] [place] [address] Social History Tobacco Use Types Packs/Day Years Used Date Smoking Tobacco: Never Assessed Comments Unknown Sex and Gender Information Value Date Recorded Sex Assigned at Not on file Legal Sex Female 7:22 PM CDT Gender Identity Not on file Sexual Orientation Not on file documented as of this encounter Miscellaneous Notes * Cerner Conversion Note - Pantera ProviderMD - 04/16/2021 9:22 AM CDT Initial Discharge Planning Entered On: 04/16/2021 9:30 EDT Performed On: 04/16/2021 9:22 EDT by Ramón Hurst SOCIAL WORKER NON-EXEMPT Initial Assessment I Previously Documented Living Environment : No qualifying data available. Living Situation : Home Patient Lives With : Alone Is the Patient a Caregiver at Home? : No Emergency Contact #1 : Celeste Rios Emergency Contact #1 Emergency Contact #1 Relationship : Daughter Emergency Contact #2 : Mariana Tee Emergency Contact #2 Emergency Contact #2 Relationship : Daughter Enter Doctors Name : Salvador Zamorano MD Does Patient have PCP Listed? : Yes Patient's Home Caregiver Name/Relationship : Celeste/daughter Patient's Home Caregiver Is Guardianship Needed : No Ramón Hurst EVIDENCE TECHNICIAN NON-EXEMPT - 04/16/2021 9:22 EDT Initial Assessment II Sensory and Motor Deficits : None Current Home Treatments and Equipment : CPAP, Oxygen therapy Ramón Hurst EVIDENCE TECHNICIAN NON-EXEMPT - 04/16/2021 9:22 EDT Discharge Needs I Anticipated Discharge To, CM : Home with family care Current Home Treatment/Equipment : Current Home Treatment/Equipment No qualifying data available. Post Acute/Home Treatments : Oxygen therapy, Oxygen/Supplies Documentation Status Complete : Yes Ramón Hurst SOCIAL WORKER NON-EXEMPT - 04/16/2021 9:22 EDT Discharge Needs II Professional Skilled Services : Professional Skilled Services No qualifying data available. Discharge Options Discussed with Patient : Acute rehabilitation, Discharge transportation, DME, Home Health, USP, Short term rehabilitation Patient Discharge Goal : Home Ramón Hurst SOCIAL WORKER NON-EXEMPT - 04/16/2021 9:22 EDT Narrative Note Narrative Note : Pt was seen at bedside. She is day 2 of 3 day DRG. Pt is moderate readmission risk with BOOST 3. Per documentation, they are checking blood cultures & monitoring her H & H. Urology is consulted. Also checking precal & giving her iV fluids. Pt reports that she lives alone, but has family support. Her PCP is Dr. Salvador Zamorano in [place], [place]. She also sees a pain specialist. Pt defers HH services, SNF or acute rehab. She has home O2 through [facility] in [place] & that is her preferred DME provider. Pt has a CPAP machine. Portable tank is not at hospital, but family can bring at D/C. She has had her Covid vaccinations. She requested information on housingkeeping resources & CM provided her with a list of services in her home area. Pt's plan is to D/C home with family support. Her daughter Kin or a friend will provide transportation. CM will continue to follow. Ramón Hurst SOCIAL WORKER NON-EXEMPT - 04/16/2021 9:22 EDT documented in this encounter Plan of Treatment Not on file documented as of this encounter Visit Diagnoses Not on filedocumented in this encounter
--- OUTSIDE RECORDS SUMMARY | 2025-03-01 16:55 | XMS_ITS | Encounter Summary ---
Author Organization [employer] [facility] Address [address] [place] [address] Care Team Providers Care Bellows Filler Name Role Phone Unavailable Primary Care Provider Unavailabl e Encounter Details Date Type Department Care Team (Late st Contact Info) Description 04/16/2021 Transcribed Document [facility] [place] [facility] [place] [address] ProviderPantera MD [address] [place] [address] [id number] Social History Tobacco Use Types Packs/Day Years Used Date Smoking Tobacco: Never Assessed Comments Unknown Sex and Gender Information Value Date Recorded Sex Assigned at Not on file Legal Sex Female 7:22 PM CDT Gender Identity Not on file Sexual Orientation Not on file documented as of this encounter Miscellaneous Notes * Cerner Conversion Note - Pantera ProviderMD - 04/16/2021 1:12 PM CDT Treatment Intervention, OT Entered On: 04/17/2021 10:54 EDT Performed On: 04/17/2021 10:10 EDT by Isabella Spring OCCUPATIONAL THERAPIST NON-EXEMPT General Information, OT Visit Type, OT : Treatment Note Patient Orders : Order Date Order Ordering 04/15/2021 00:14 OT Evaluation and Treatment Ordered By: RODRIGO BASURTO DO-INT 04/16/2021 13:12 Occupational Therapy Additional Tx Ordered By: Active Diagnoses : No Qualifying Diagnoses Therapy Diagnosis, OT : Decreased I with ADLs and functional mobility due to weakness Admission Date : 04/14/2021 23:14 Co-treated by, OT : Physical Therapist Personal Devices : Personal Devices Dentures, upper, Dentures, lower Assistive Devices : Assistive Devices No Devices Recorded Isabella Spring OCCUPATIONAL YAIMA NON-EXEMPT - 04/17/2021 10:52 EDT General Status Patient Received Status : Supine in bed, HOB elevated Treatment Start Time : 04/17/2021 9:45 EDT Patient Left Status : Up in chair, Chair alarm activated, RN/PCT informed, All needs met and within reach RN/PCT Informed Comment : [place]INGTON ortiz tx Treatment End Time : 04/17/2021 10:10 EDT Treatment Time : 25 Minute(s) Isabella Spring OCCUPATIONAL THERAPIST NON-EXEMPT - 04/17/2021 10:52 EDT Self Care/Home Management, OT Grooming Assist Level, OT : Supervision or set-up Isabella Spring OCCUPATIONAL THERAPIST NON-EXEMPT - 04/17/2021 10:52 EDT Functional Mobility Mobility Grid Supine to Sit : Supervision/set-up Sit to Stand : Supervision/set-up (Comment: CGA [Isabella Spring OCCUPATIONAL THERAPIST NON-EXEMPT - 04/17/2021 10:52 EDT] ) Isabella Spring OCCUPATIONAL THERAPIST NON-EXEMPT - 04/17/2021 10:52 EDT Plan of Care, OT OT Tx Plan/Goals Established w Patient : Yes Isabella Spring OCCUPATIONAL THERAPIST NON-EXEMPT - 04/17/2021 12:20 EDT Roll Line Operator Goals, OT Grooming LTG Grid Goal #1 Activity : Grooming Assist : Independent, modified Date to Meet : 04/30/2021 EDT Goal Status : Initial goal Comment : standing at sink Isabella Spring OCCUPATIONAL THERAPIST NON-EXEMPT - 04/17/2021 12:20 EDT Bathing LTG Grid Goal #1 Activity : Bathing Assist : Supervision or set up Date to Meet : 04/30/2021 EDT Goal Status : Initial goal Isabella Spring OCCUPATIONAL THERAPIST NON-EXEMPT - 04/17/2021 12:20 EDT Dressing, Lower Body LTG Grid Goal #1 Activity : Dressing, Lower Body Assist : Supervision or set up Equipment : Long Handled Track Laying Supervisor, Sock aid Date to Meet : 04/30/2021 EDT Goal Status : Progressing, continue Isabella Spring OCCUPATIONAL THERAPIST NON-EXEMPT - 04/17/2021 12:20 EDT Toilet Transfer LTG Grid Goal #1 Activity : Toilet Transfer, Ambulatory Assist : Independent, modified Date to Meet : 04/30/2021 EDT Goal Status : Progressing, continue Isabella Spring OCCUPATIONAL THERAPIST NON-EXEMPT - 04/17/2021 12:20 EDT Treatment Note Subjective Comment : Pt agreeable to therapy session. Patient's Response to Treatment : Pt tolerated well. Back pain 7/10 with standing/walking. Pt states this is chronic pain that she has been dealing with at home. Additional Objective Information : Patient transferred supine to sit EOB with S. Able to don socks while seated with setup. Sit to stand with CGA and ambulated to bathroom. Stood at sink to clean dentures with SBA. Pt reported exacerbation of back pain when standing but able to complete task. Pt provided with RW for increased stability and pt able to ambulate 100 ft with CGA/SBA. Pt set up in reclining chair with all needs within reach. Assessment : Discussed with pt benefits of going to rehab after hospital discharge, however, pt states she would prefer to go home with home health. Pt states she has family/friends that can help her. Continued skilled OT recommended while inpatient to increase patients independence and safety with ADLs/functional mobility. Plan for Treatment : Continue with established POC. Isabella Spring OCCUPATIONAL THERAPIST NON-EXEMPT - 04/17/2021 12:20 EDT Pain Assessment Pain Scaled Used : 0-10 Pain scale Pain Score Pre-Intervention : 7 Location : Back Isabella Spring OCCUPATIONAL THERAPIST NON-EXEMPT - 04/17/2021 12:20 EDT Image 1 - Images currently included in the form version of this document have not been included in the text rendition version of the form. Anticipated Discharge Needs, OT/PT Anticipated Discharge to : Home, with home health Isabella Spring OCCUPATIONAL THERAPIST NON-EXEMPT - 04/17/2021 12:[address] [facility] OT Charges OT Selfcare/Hm Mgmt Ea 15 Min : 2 Isabella Spring OCCUPATIONAL THERAPIST NON-EXEMPT - 04/17/2021 12:20 EDT documented in this encounter Plan of Treatment Not on file documented as of this encounter Visit Diagnoses Not on filedocumented in this encounter
--- OUTSIDE RECORDS SUMMARY | 2025-03-01 16:55 | XMS_ITS | Encounter Summary ---
Author Organization [employer] Address [address] [place] [address] Care Team Providers Care Dietitian Assistant Name Role Phone Unavailable Primary Care Provider Unavailabl e Encounter Details Date Type Department Care Team (Late st Contact Info) Description 04/18/2021 Transcribed Document [facility] [place] [facility] [place] [address] ProviderPantera MD [address] [place] [address] Social History Tobacco Use Types Packs/Day Years Used Date Smoking Tobacco: Never Assessed Comments Unknown Sex and Gender Information Value Date Recorded Sex Assigned at Not on file Legal Sex Female 7:22 PM CDT Gender Identity Not on file Sexual Orientation Not on file documented as of this encounter Miscellaneous Notes * Cerner Conversion Note - Pantera Tineo MD - 04/18/2021 3:01 PM CDT Patient Education Materials Follows: Low-Fiber Eating Plan Fiber is found in [...] that you work with a diet and child nutrition manager (dietitian). What are tips for following this [...] made with white flour. Waffles, pancakes, and Bulgarian toast. Bagels. Pretzels. [place] toast, zwieback, and matzoh. Cooked and dried cereals that do not contain whole grains, added fiber, seeds, or dried fruit. Cornmeal. [place]. Hot and cold cereals made with refined [...] Sports drinks. Herbal tea. Fats and oils [place] oil, canola oil, sunflower oil, flaxseed oil, [...] breads and crackers. Multigrain breads and crackers. Metaline bread. Whole grain or multigrain cereals. Cereals with nuts, raisins, or coconut. Bran. Coarse wheat cereals. Granola. High-fiber cereals. Cornmeal or corn bread. Whole grain pasta. Wild or brown rice. Quinoa. Popcorn. Buckwheat. Wheat germ. Vegetables Potato skins. Raw or undercooked vegetables. All beans and calles sprouts. Cooked greens. [place]. Peas. Cabbage. Beets. Broccoli. [place] sprouts. Cauliflower. Mushrooms. Onions. Peppers. Parsnips. Okra. [...] are not allowed. Seasoning and other foods [place] tortilla chips. Soups made with vegetables or [...] provider. Document Revised: 12/23/2019 Document Reviewed: 11/03/2017 [employer] Patient Education ? 2020 [employer] Gastrointestinal Bleeding Gastrointestinal (GI) bleeding is [...] Follow these instructions at home: ??? Take hdzm-eyl-wruateo and prescription medicines only as told by your doctor. ??? Eat foods that have a lot of fiber in them. These foods include beans, whole grains, and fresh fruits and vegetables. You can also try eating 1?3 prunes each day. ??? Drink enough fluid [...] provider. Document Revised: 04/13/2019 Document Reviewed: 04/13/2019 [employer] Patient Education ? 2020 [employer] Infectious Disease Sepsis, Diagnosis, Adult Sepsis is a serious [...] these instructions at home: Medicines ??? Take rknr-tac-mcepide and prescription medicines only as told by [...] provider. Document Revised: 04/08/2019 Document Reviewed: 04/08/2019 [employer] Patient Education ? 2020 [employer]. Electronically signed by Olga Gonsalves Conversion Clinical Applications Specialist Cerner at 01/02/2023 6:04 PM CDT documented in this encounter Plan of Treatment Not on file documented as of this encounter Visit Diagnoses Not on filedocumented in this encounter
--- OUTSIDE RECORDS SUMMARY | 2025-03-01 16:55 | XMS_ITS | Encounter Summary ---
Author Organization [facility] Address [address] [place] [address] Care Team Providers Care Supervisor Assembly Name Role Phone Unavailable Primary Care Provider Unavailabl e Encounter Details Date Type Department Care Team (Late st Contact Info) Description 04/17/2021 Transcribed Document [facility] [place] [facility] [place] [address] ProviderPantera MD [address] [place] [address] Social History Tobacco Use Types Packs/Day Years Used Date Smoking Tobacco: Never Assessed Comments Unknown Sex and Gender Information Value Date Recorded Sex Assigned at Not on file Legal Sex Female 7:22 PM CDT Gender Identity Not on file Sexual Orientation Not on file documented as of this encounter Miscellaneous Notes * Cerner Conversion Note - Pantera ProviderMD - 04/17/2021 4:50 PM CDT On Going Discharge Planning Entered On: 04/17/2021 16:55 EDT Performed On: 04/17/2021 16:50 EDT by Ramón Hurst, TACTICAL/MOBILE WATCH OFFICER NON-EXEMPT Care Management Progress Note Discharge Arrangements : Patient Post-Acute Information Patient Name: SINDY NGUYEN Gender: Female : 47 Age: 75 Years No Post-Acute Placement(s) Listed No Post-Acute Service(s) Listed No Curaspan Referral(s) Listed Discharge Options Discussed with Patient : Acute rehabilitation, Discharge transportation, DME, Home Health, care home, Short term rehabilitation Barriers to Discharge Identified : Clinical Condition of Patient Barriers to Discharge Unresolved : Clinical Condition of Patient Patient Discharge Goal : Home Patient Offered Choice/Affiliations Explained : Yes Designation of Choice Signed : Yes List/Info Provided Pt/Fam/Support Person : Durable medical equipment, Home health Were Referrals Sent to Post Acute Providers : Yes CMS Quality Web Info Shared w Pt/Fam : Yes Is the Patient Meeting Medical Necessity : Yes Physician Agreeable to Move Forward with D/C Plan? : Yes Discharge Plan Comment : Home with home health & walker Did you Attend Multidisciplinary Rounds? : Yes Ramón Hurst SOCIAL WORKER NON-EXEMPT - 04/17/2021 16:50 EDT Narrative Progress Note Narrative Progress Note : Pt was seen at bedside. She still plans to return home with home health services. CM did get a call from [facility] & they have accepted pt. They will start services on 04/19/2021 as D/C is anticipated for tomorrow. [facility]. PT has recommended a walker & pt wanted this through [facility]. A referral to [facility] was sent via [employer]. CM confirmed they got referral for walker & understand expected D/C is tomorrow. No further issues at this time. CM will continue to follow. Historical Progress Note : Pt is day 2 [...] declines rehab placement. She has agreed to referral for rehab. HH referral was sent via [employer]. [facility] Provider form was completed. CM notified hospitalist of pt's decision for HH services. Plan is to return home with services. Pt's daughter will provide transportation. CM will continue to follow. Ramón Hurst TACTICAL/MOBILE WATCH OFFICER NON-EXEMPT - 04/16/21 15:54:11 Ramón Hurst SOCIAL WORKER NON-EXEMPT - 04/17/2021 16:50 EDT documented in this encounter Plan of Treatment Not on file documented as of this encounter Visit Diagnoses Not on filedocumented in this encounter
--- OUTSIDE RECORDS SUMMARY | 2025-03-01 16:55 | XMS_ITS | Encounter Summary ---
Author Organization [facility] Address [address] [place] [address] Care Team Providers Care Damper Fitter Name Role Phone Unavailable Primary Care Provider Unavailabl e Encounter Details Date Type Department Care Team (Late st Contact Info) Description 04/18/2021 Transcribed Document [facility] [place] Family Medicine [address] [place] [address] ProviderPantera MD [address] [place] [address] [id number] Social History Tobacco Use Types Packs/Day Years Used Date Smoking Tobacco: Never Assessed Comments Unknown Sex and Gender Information Value Date Recorded Sex Assigned at Not on file Legal Sex Female 7:22 PM CDT Gender Identity Not on file Sexual Orientation Not on file documented as of this encounter Miscellaneous Notes * Cerner Conversion Note - Pantera ProviderMD - 04/18/2021 9:29 AM CDT Meds to Bed Enrollment Entered On: 04/18/2021 9:29 EDT Performed On: 04/18/2021 9:29 EDT by Chitra Becerril, PHARMACIST-SPECIALIST CLINICAL Meds to Bed Enrollment Patient Enrollment Decision: : Yes/enroll in meds to bed program Chitra Becerril, PHARMACIST-SPECIALIST CLINICAL - 04/18/2021 9:29 EDT documented in this encounter Plan of Treatment Not on file documented as of this encounter Visit Diagnoses Not on filedocumented in this encounter
--- OUTSIDE RECORDS SUMMARY | 2025-03-01 16:55 | XMS_ITS | Encounter Summary ---
Author Organization [employer] Address [address] [place] [address] Care Team Providers Care Catering Barista Name Role Phone Unavailable Primary Care Provider Unavailabl e Encounter Details Date Type Department Care Team (Late st Contact Info) Description 04/18/2021 Transcribed Document [facility] [place] Family Medicine [facility] [place] [address] ProviderPantera MD [address] [place] [address] Social History Tobacco Use Types Packs/Day Years Used Date Smoking Tobacco: Never Assessed Comments Unknown Sex and Gender Information Value Date Recorded Sex Assigned at Not on file Legal Sex Female 7:22 PM CDT Gender Identity Not on file Sexual Orientation Not on file documented as of this encounter Miscellaneous Notes * Cerner Conversion Note - Pantera ProviderMD - 04/18/2021 11:18 AM CDT [address] [place] [address] Patient Copy Patient Information: Name: SINDY NGUYEN Current Date: 04/18/2021 11:18:07 : 1945 Patient Address: [address] [place] [address] [place] [address] Patient Attending Physician: TATYANA MEDINA MD Primary Care Provider: SIMON, NOT LISTED Primary Care Provider Phone: Discharge Diagnosis: GI bleed Comment: Follow-up Instructions: With: Address: When: DENNIS ZAMORANO [address], [address] [place] [address] Business (1) Within 2 to 4 days Comments: at the outside hospital you had some abnormalities on CT HEAD. Please discuss this with Dr. Zamorano as these are chronic appearing changes and he needs to follow. Nothing emergent With: Address: When: ABE العراقي [address] [place] [address], [address] [place] [address] Business (1) Within 2 to 4 weeks Comments: regarding ureteral dilation seen on imaging at OSH Discharge Instructions: Immunizations Documented During Stay: No Immunizations Found Heart Failure Discharge Instructions (if any): Stroke Related Discharge Instructions (if any): Warfarin Related Discharge Instructions (if any): Final Medication List: Other Medications alendronate 70 Milligram(s) Oral Weekly. ALPRAZolam (ALPRAZolam 1 mg oral tablet) 1 Tablet(s) Oral Three Times A Day as needed for anxiety. amitriptyline (amitriptyline 25 mg oral tablet) 1 Tablet(s) Oral At Bedtime. aspirin (Aspirin Low Dose 81 mg oral delayed release tablet) 1 Tablet(s) Oral Every Day. beclomethasone nasal (Qnasl 80 mcg/inh nasal spray) 2 [place](s) Nasal Every Day as needed Nasal Congestion. bisoprolol (bisoprolol 10 mg oral tablet) 1 Tablet(s) Oral At Bedtime. budesonide-formoterol (Symbicort 160 mcg-4.5 mcg/inh inhalation aerosol) 2 Puff(s) Inhalation Two Times A Day. diclofenac (diclofenac sodium 75 mg oral delayed release tablet) 1 Tablet(s) Oral Twice a Day With Meals. furosemide (furosemide 40 mg oral tablet) 1 Tablet(s) Oral Every Day. gabapentin (gabapentin 300 mg oral capsule) 3 Capsule(s) Oral At Bedtime. levalbuterol (levalbuterol 0.63 mg/3 mL inhalation solution) 3 Milliliter(s) Nebulized Inhalation Three Times A Day as needed Shortness of Breath. levocetirizine (levocetirizine 5 mg oral tablet) 1 Tablet(s) Oral Every Evening. levothyroxine (levothyroxine 125 mcg (0.125 mg) oral tablet) 1 Tablet(s) Oral Every Day. lisinopril (lisinopril 2.5 mg oral tablet) 1 Tablet(s) Oral Every Day. metFORMIN (MetFORMIN (Eqv-Glucophage XR) 500 mg oral tablet, extended release) 1 Tablet(s) Oral Twice a Day With Meals. milnacipran (Savella 100 mg oral tablet) 1 Tablet(s) Oral Two Times A Day. mirabegron (Myrbetriq 50 mg oral tablet, extended release) 1 Tablet(s) Oral Every Day. montelukast (montelukast 10 mg oral tablet) 1 Tablet(s) Oral Every Evening. omeprazole (omeprazole 40 mg oral delayed release capsule) 1 Capsule(s) Oral Two Times A Day. rosuvastatin (rosuvastatin 20 mg oral tablet) 1 Tablet(s) Oral At Bedtime. SITagliptin (Januvia 100 mg oral tablet) 1 Tablet(s) Oral Every Day. tiotropium (Spiriva Respimat 60 ACT 2.5 mcg/inh inhalation aerosol) 2 Puff(s) Inhalation Every Day. Patient Allergies: Abilify; Pyridium; Cipro Medication Instructions: Take your medications faithfully. Do NOT skip [...] cramping, rapid heartbeat, difficulty sleeping, and nervousness. CIGARETTE SMOKING: The facts are clear, cigarette smoking will shorten your life. Smoking can cause many illnesses along the way. As a healthcare provider, we recommend that you stop smoking. Assistance with quitting is available by contacting 0-484-DVBE-NOW. This is a free resource providing counseling, support, and referral. Or you may contact your personal physician. 4 WAYS TO GET AHEAD OF SEPSIS SEPSIS is a MEDICAL EMERGENCY. Time matters! Infections put you and your family at risk for a life-threatening condition called sepsis. Sepsis is the body???s extreme response to an infection. It is life-threatening, and without timely treatment, sepsis can rapidly lead to tissue damage, organ failure, and . Sepsis happens when an infection you already have???in your skin, lungs, urinary tract or somewhere else???triggers a chain reaction throughout your body. 1 [...] sepsis or if you have an infection that???s not getting better or is getting worse. To learn more about sepsis and how to prevent infections, visit www.cdc.gov/sepsis. STROKE is an EMERGENCY Every Minute Counts ACT F.A.S.T! FACE ?? Facial droop ?? Uneven smile ARM ?? Arm numbness ?? Arm weakness SPEECH ?? Slurred speech ?? Difficulty speaking or understanding TIME ?? Call 911 and get to the hospital immediately Have the ambulance go to the nearest stroke center. STROKE Risk Factors High blood pressure High cholesterol Heart Disease Diabetes Smoking Heavy alcohol use Physical inactivity and obesity Atrial Fibrillation (irregular heartbeat) Family history of stroke Reminder: Be sure to sign up for the [employer] patient portal, which gives you 24/ access to your medical information ??? including these discharge instructions ??? using your computer, smartphone, or tablet. Just go to [employer] to get started. Questions? Call . [facility] would like to thank you for allowing us to assist you with your healthcare needs. YANCY Quarles BRENDA K, (or sales representative education courses) have received the above patient education materials/instructions and have verbalized understanding: Patient Signature _ Date/Time Patient Search Engine Optimization Analyst Signature (if needed) Date/Time Clinician/Hospital Search Engine Optimization Analyst Signature (if needed) Date/Time documented in this encounter Plan of Treatment Not on file documented as of this encounter Visit Diagnoses Not on filedocumented in this encounter
--- OUTSIDE RECORDS SUMMARY | 2025-03-01 16:55 | XMS_ITS | Encounter Summary ---
Author Organization [employer] Address [address] [place] [address] Care Team Providers Care Needle Polisher Name Role Phone Unavailable Primary Care Provider Unavailabl e Encounter Details Date Type Department Care Team (Late st Contact Info) Description 04/16/2021 Transcribed Document [facility] [place] Family Medicine [facility] [place] [address] ProviderPantera MD [address] [place] [address] [id number] Social History Tobacco Use Types Packs/Day Years Used Date Smoking Tobacco: Never Assessed Comments Unknown Sex and Gender Information Value Date Recorded Sex Assigned at Not on file Legal Sex Female 7:22 PM CDT Gender Identity Not on file Sexual Orientation Not on file documented as of this encounter Miscellaneous Notes * Cerner Conversion Note - Pantera ProviderMD - 04/16/2021 2:00 AM CDT Armament Repairer Details Entered On: 04/16/2021 2:31 EDT Performed On: 04/16/2021 2:00 EDT by Wenceslao Peres RN-PATIENT CARE BEDSIDE NON-EXEMPT Order Details Transport Mode Order Detail : Stretcher/Gurney Isolation Precautions Order Detail : Standard Precautions Order Detail : N/A IV Order Detail : 1 Oxygen Order Detail : 1 Nurse Collect Order Detail : 0 Lift/Transfer : Minimal Central Line Order Detail : No Room Service : Appropriate Arterial Line : No Patient Needs Meds Crushed/Liquid : No Wenceslao Peres RN-PATIENT CARE BEDSIDE NON-EXEMPT - 04/16/2021 2:30 EDT Electronically signed by Olga Gonsalves Conversion Tape Fastener Machine Operator Cerner at 01/02/2023 6:15 PM CDT documented in this encounter Plan of Treatment Not on file documented as of this encounter Visit Diagnoses Not on filedocumented in this encounter
--- OUTSIDE RECORDS SUMMARY | 2025-03-01 16:55 | XMS_ITS | Encounter Summary ---
Author Organization [employer] Address [address] [place] [address] Care Team Providers Care Cushion Gum Applicator Name Role Phone Unavailable Primary Care Provider Unavailabl e Encounter Details Date Type Department Care Team (Late st Contact Info) Description 04/17/2021 Transcribed Document [facility] [place] Family Medicine [facility] [address] ProviderPantera MD [address] [place] [address] Social History Tobacco Use Types Packs/Day Years Used Date Smoking Tobacco: Never Assessed Comments Unknown Sex and Gender Information Value Date Recorded Sex Assigned at Not on file Legal Sex Female 7:22 PM CDT Gender Identity Not on file Sexual Orientation Not on file documented as of this encounter Miscellaneous Notes * Cerner Conversion Note - Pantera ProviderMD - 04/17/2021 4:06 PM CDT UM Authorization Entered On: 04/17/2021 16:06 EDT Performed On: 04/17/2021 16:06 EDT by CHRIS LARKIN RN Primary Insurance Authorization Authorization and Policy Numbers : Insurance 1 Health Plan: [employer] PPO Policy Number: [id number] Authorization Number: Insurance Primary Name : [employer] PPO Policy Number: [id number] Authorization Status-Primary : Denial - admission Reference Number-Primary : Pend ref #[id number] Authorized Service Begin Date-Primary : 04/14/2021 EDT Authorization Comments-Primary : Per VM From Himanshu R denied IP Historical Authorization Comments-Primary : Comment 1: IP appr per Alan CARBALLO, em the alan pa review to ER (NICOLÁS LUIS RN 04/16/2021 12:58) Comment 2: Obs appr per IPAS. Per attending PA pt meets for IP status. Ref to Alan PA (NICOLÁS LUIS RN 04/16/2021 12:15) Comment 3: Ref to Xpas (NICOLÁS LUIS RN 04/15/2021 15:15) Comment 4: Pend ref no per Availity, reviewer has access to Cerner (NICOLÁS LUIS RN 04/15/2021 09:26) CHRIS LARKIN RN - 04/17/2021 16:06 EDT documented in this encounter Plan of Treatment Not on file documented as of this encounter Visit Diagnoses Not on filedocumented in this encounter
--- OUTSIDE RECORDS SUMMARY | 2025-03-01 16:55 | XMS_ITS | Encounter Summary ---
Author Organization [employer] Address [address] [place] [address] Care Team Providers Care Clinical Lab Technologist Name Role Phone Unavailable Primary Care Provider Unavailabl e Encounter Details Date Type Department Care Team (Late st Contact Info) Description 04/16/2021 Transcribed Document [facility] [place] Family Medicine [facility] [place] [address] ProviderPantera MD [address] [place] [id number] Social History Tobacco Use Types Packs/Day Years Used Date Smoking Tobacco: Never Assessed Comments Unknown Sex and Gender Information Value Date Recorded Sex Assigned at Not on file Legal Sex Female 7:22 PM CDT Gender Identity Not on file Sexual Orientation Not on file documented as of this encounter Miscellaneous Notes * Cerner Conversion Note - Historical ProviderMD - 04/16/2021 5:00 PM CDT Chart Check - Review Order Profile Entered On: 04/16/2021 15:22 EDT Performed On: 04/16/2021 17:00 EDT by Celeste Trujillo RN Chart Check Powerplans Initiated/Discontinued as Appropriate : Yes All Active Orders Reviewed : Yes Celeste Trujillo RN - 04/16/2021 15:22 EDT documented in this encounter Plan of Treatment Not on file documented as of this encounter Visit Diagnoses Not on filedocumented in this encounter
--- OUTSIDE RECORDS SUMMARY | 2025-03-01 16:55 | XMS_ITS | Encounter Summary ---
Author Organization [facility] [facility] Address [address] [place] [address] Care Team Providers Care Raw Mill Operator Name Role Phone Unavailable Primary Care Provider Unavailabl e Encounter Details Date Type Department Care Team (Late st Contact Info) Description 04/16/2021 Transcribed Document [facility] [place] Family Medicine [facility] [place] [address] ProviderPantera MD [address] [place] [address] Social History Tobacco Use Types Packs/Day Years Used Date Smoking Tobacco: Never Assessed Comments Unknown Sex and Gender Information Value Date Recorded Sex Assigned at Not on file Legal Sex Female 7:22 PM CDT Gender Identity Not on file Sexual Orientation Not on file documented as of this encounter Miscellaneous Notes * Cerner Conversion Note - Pantera ProviderMD - 04/16/2021 12:58 PM CDT UM Authorization Entered On: 04/16/2021 12:59 EDT Performed On: 04/16/2021 12:58 EDT by NICOLÁS LUIS RN Primary Insurance Authorization Authorization and Policy Numbers : Insurance 1 Health Plan: [employer] PPO Policy Number: [id number] Authorization Number: Insurance Primary Name : [employer] PPO Policy Number: [id number] Authorization Status-Primary : Awaiting callback Reference Number-Primary : Pend ref #[id number] Authorized Service Begin Date-Primary : 04/14/2021 EDT Authorization Comments-Primary : IP appr per Sound PA, em the alan pa review to ER Historical Authorization Comments-Primary : Comment 1: Obs appr per IPAS. Per attending PA pt meets for IP status. Ref to Sound PA (NICOLÁS LUIS RN 04/16/2021 12:15) Comment 2: Ref to Xpas (NICOLÁS LUIS RN 04/15/2021 15:15) Comment 3: Pend ref no per Availity, reviewer has access to Cerner (NICOLÁS LUIS RN 04/15/2021 09:26) NICOLÁS LIUS RN - 04/16/2021 12:58 EDT Electronically signed by [facility] Conversion Professor Of Fine Art Cerner at 01/02/2023 6:26 PM CDT documented in this encounter Plan of Treatment Not on file documented as of this encounter Visit Diagnoses Not on filedocumented in this encounter
--- OUTSIDE RECORDS SUMMARY | 2025-03-01 16:55 | XMS_ITS | Encounter Summary ---
Author Organization [facility] [facility] Address [address] [place] [address] Care Team Providers Care Payroll And Benefits Specialist Name Role Phone Unavailable Primary Care Provider Unavailabl e Encounter Details Date Type Department Care Team (Late st Contact Info) Description 04/16/2021 Transcribed Document [facility] [address] [place] [address] Provider, Olga Mott MD Social History Tobacco Use Types Packs/Day Years Used Date Smoking Tobacco: Never Assessed Comments Unknown Sex and Gender Information Value Date Recorded Sex Assigned at Not on file Legal Sex Female 7:22 PM CDT Gender Identity Not on file Sexual Orientation Not on file documented as of this encounter Miscellaneous Notes * Cerner Conversion Note - [facility] Pantera Tineo MD - 04/16/2021 1:30 PM EDT Treatment Intervention, PT Entered On: 04/17/2021 13:28 EDT Performed On: 04/17/2021 10:10 EDT by Derek Rodriguez PHYSICAL YAIMA NON-EXEMPT General Information, PT Visit Type, PT : Treatment Note Patient Orders : Order Date Order Ordering 04/15/2021 00:14 PT Evaluation and Treatment Ordered By: RODRIGO BASURTO DO-INT 04/16/2021 12:30 PT Additional Treatment Ordered By: JANET GRAHAM, PT Active Diagnoses : No Qualifying Diagnoses Therapy Diagnosis, PT : decreased independent functional mobility Admission Date : 04/14/2021 23:14 Co-treated by, PT : Occupational Therapist Personal Devices : Personal Devices Dentures, upper, Dentures, lower Assistive Devices : Assistive Devices No Devices Recorded Precautions in Place : Fall prevention measures Derek Rodriguez PHYSICAL THERAPIST NON-EXEMPT - 04/17/2021 13:18 EDT General Status Patient Received Status : Supine in bed Treatment Start Time : 04/17/2021 9:45 EDT Patient Left Status : Up in chair RN/PCT Informed Comment : Manng: Oliva approved session Treatment End Time : 04/17/2021 10:10 EDT Treatment Time : 25 Minute(s) Derek Rodriguez PHYSICAL THERAPIST NON-EXEMPT - 04/17/2021 13:18 EDT Intervention Summary Heart Rate/Pulse Pre-intervention : 95 bpm BP Systolic Pre-intervention : 157 mmHg BP Diastolic Pre-intervention : 96 mmHg O2 Pre-Intervention : 2L SpO2 Pre-Intervention : 97 % O2 During Intervention : 2L O2 Post-Intervention : 2L Derek Rodriguez PHYSICAL THERAPIST NON-EXEMPT - 04/17/2021 13:18 EDT Functional Mobility Mobility Grid Supine to Sit : Supervision/set-up Sit to Stand : Rehab Minimal assistance Stand to Sit : Rehab Minimal assistance Derek Rodriguez PHYSICAL THERAPIST NON-EXEMPT - 04/17/2021 13:18 EDT Supine to Sit Device : Rails Sit to Stand Device : Belt, gait, Other: B OUTSIDE PRODUCTION INSPECTOR Stand to Sit Device : Belt, gait, Walker, front wheel Derek Rodriguez PHYSICAL THERAPIST NON-EXEMPT - 04/17/2021 13:18 EDT Gait Training/Assessment, PT Weight Bearing Status Maintained : Yes Weight Bearing Status : Full Gait Assistance Level : Assist, minimal Walking Distance : 10' from bed to bathroom, Nathan no device + 100' with walker and SBA/contact for safety Ambulatory Devices : None, Gait belt, Walker, front wheel Gait Deviations : Yes Left Lower Gait Deviation : Kenisha, decreased, Foot clearance, decreased, Step length, decreased Right Lower Gait Deviation : Kenisha, decreased, Foot clearance, decreased, Step length, decreased Gait Training Comment : Patient with short shuffling steps to bathroom from bed requiring Nathan for steadying without assistive device. Pt stood at sink, leaning against sink for support and washed dentures. Patient was then instructed to use walker and continued for 100' (Comment: gait training with walker, SBA + contact for safety but no overt LOB. SOA after ambulation [Derek Rodriguez PHYSICAL THERAPIST NON-EXEMPT - 04/17/2021 13:18 EDT] ) Derek Rodriguez PHYSICAL THERAPIST NON-EXEMPT - 04/17/2021 13:18 EDT Activity Tolerance, PT Activity Comment : Poor Derek Rodriguez, PHYSICAL THERAPIST NON-EXEMPT - 04/17/2021 13:18 EDT Cognitive Treatment, PT Orientation : Oriented x 4 Safety/Judgment Findings, PT : Poor Follows Basic Command Findings, PT : Follows 1 step commands Attention Findings, PT : Fair Derek Rodriguez, PHYSICAL THERAPIST NON-EXEMPT - 04/17/2021 13:18 EDT Edu Topics Physical Therapy Education Grid Gait Training : Verbalizes understanding, Needs further teaching Role of Physical Therapy : Verbalizes understanding, Needs further teaching Derek Rodriguez PHYSICAL THERAPIST NON-EXEMPT - 04/17/2021 13:18 EDT Indication Assesessment, PT Physical Therapy Indicated : Yes Derek Rodriguez PHYSICAL THERAPIST NON-EXEMPT - 04/17/2021 13:18 EDT Plan of Care, PT PT Tx Plan/Goals Established w Patient : Yes Derek Rodriguez PHYSICAL THERAPIST NON-EXEMPT - 04/17/2021 13:18 EDT Short Term Goals Mobility/Bed Mobility STG PT Grid Goal #1 Goal #2 Activity : Supine to sit Sit to stand Assist : Supervision or set-up Supervision or set-up Date to Meet : 04/23/2021 EDT 04/24/2021 EDT Goal Status : Goal met Progressing, continue Date Met : 04/17/2021 EDT Derek Rodriguez PHYSICAL THERAPIST NON-EXEMPT - 04/17/2021 13:18 EDT Derek Rodriguez PHYSICAL THERAPIST NON-EXEMPT - 04/17/2021 13:18 EDT Ambulation STG Grid Goal #1 Device : Walker, front wheel Distance : 150' Assist : Assist, minimal Date to Meet : 04/23/2021 EDT Goal Status : Progressing, continue Derek Rodriguez PHYSICAL THERAPIST NON-EXEMPT - 04/17/2021 13:18 EDT Brake Lining Finisher Asbestos Goals Mobility/Bed Mobility LTG PT Grid Goal #1 Goal #2 Activity : Supine to sit Sit to stand Assist : Independent, modified Independent, modified Date to Meet : 04/30/2021 EDT 04/30/2021 EDT Goal Status : Progressing, continue Progressing, continue Derek Rodriguez PHYSICAL THERAPIST NON-EXEMPT - 04/17/2021 13:18 EDT Derek Rodriguez PHYSICAL THERAPIST NON-EXEMPT - 04/17/2021 13:18 EDT Ambulation LTG Grid Goal #1 Device : Walker, front wheel Distance : 200' Assist : Supervision or set-up Date to Meet : 04/30/2021 EDT Goal Status : Progressing, continue Derek Rodriguez PHYSICAL THERAPIST NON-EXEMPT - 04/17/2021 13:18 EDT Treatment Note Subjective Comment : Chart reviewed, nsg approved session, pt agreeable. Patient's Response to Treatment : Fair Additional Objective Information : See gait training comments. Assessment : Patient with poor dynamic standing balance, poor safety awareness, poor activity tolerance. Patient would likely benefit from rehab stay upon discharge to address these deficits and this was explained to patient but patient adamently refused stating she does not want to get Covid and that she will have help at home. Pt is agreeable to using a walker if she goes home and participating in home health. This was relayed to patient's skilled nursing case manager after session. Plan for Treatment : Continue with current PT POC. Derek Rodriguez PHYSICAL THERAPIST NON-EXEMPT - 04/17/2021 13:18 EDT Pain Assessment Location : Lumbar Pain Improved by : Repositioning Pain Comment : Pt did not quantify but c/o back pain multiple times during session and reports this is chronic issue. Derek Rodriguez PHYSICAL THERAPIST NON-EXEMPT - 04/17/2021 13:18 EDT Image 1 - Images currently included in the form version of this document have not been included in the text rendition version of the form. Anticipated Discharge Needs, OT/PT Anticipated Discharge to : Home, with family care, Home, with home health, Other: Patient would benefit from subacute rehab stay but she refused. Anticipated Home Equipment : Walker (Comment: will need front wheel walker if discharging home [Derek Rodriguez PHYSICAL THERAPIST NON-EXEMPT - 04/17/2021 13:18 EDT] ) Recommend Continued Therapy at Discharge : Yes Walker : Walker, front wheel Derek Rodriguez PHYSICAL THERAPIST NON-EXEMPT - 04/17/2021 13:18 EDT [place] PT Charges PT Ther Activities Ea 15 Min : 1 Gait Training Each 15 Min : 1 Derek Rodriguez PHYSICAL THERAPIST NON-EXEMPT - 04/17/2021 13:18 EDT documented in this encounter Plan of Treatment Not on file documented as of this encounter Visit Diagnoses Not on filedocumented in this encounter
[2025-03-01 17:01] VITALS: BP 120/69; PULSE 80; RESP 18; O2SAT 90
--- NOTE | 2025-03-01 17:20 | PC.NURSE ---
Provider at bed side,
--- NOTE | 2025-03-01 17:31 | [facility].EDGENADL ---
Discharge Plan Disposition Patient Disposition: Home, Self-Care Prescriptions Prescriptions: No Action metoprolol succinate 50 mg tablet extended release 24 hr 50 mg PO DAILY potassium chloride 10 mEq tablet extended release 10 meq PO BID duloxetine 30 mg capsule,delayed release(DR/EC) 30 mg PO BID Patient Comments: TAKE ONE CAPSULE BY MOUTH TWICE DAILY alprazolam 1 mg tablet 1 mg PO TIDP PRN (Reason: Anxiety) omeprazole 40 mg capsule,delayed release(DR/EC) 40 mg PO BID gabapentin 300 mg capsule 600 mg PO HS levocetirizine 5 mg tablet 5 mg PO HS levalbuterol HCl 0.63 mg/3 mL solution for nebulization 0.63 mg inhalation . PRN (Reason: .) Linzess 72 mcg capsule 72 mcg PO DAILY PRN (Reason: IBS) albuterol sulfate [Ventolin HFA] 90 mcg/actuation HFA aerosol inhaler 2 inh inhalation Q6H PRN (Reason: shortness of breath or wheezing) 90 Days Qty: 18 3RF levothyroxine 100 mcg tablet 100 mcg PO DAILY Patient Comments: TAKE ONE TABLET BY MOUTH EVERY DAY aspirin 81 MG tablet,delayed release (DR/EC) 81 mg PO DAILY ergocalciferol (vitamin D2) 50,000 UNIT capsule 50,000 units PO WEEKLY Patient Comments: TAKE ONE CAPSULE BY MOUTH ONCE A WEEK baclofen 10 mg tablet 10 mg PO HS Qty: 14 0RF tramadol 50 mg tablet 50 mg PO BID PRN (Reason: pain) Qty: 60 0RF acetaminophen-codeine 300-30 mg tablet 1 tab PO BID PRN (Reason: pain) Qty: 60 0RF levalbuterol tartrate 15 GM HFA aerosol inhaler 2 puff IH Q4H milnacipran 100 MG tablet 100 mg PO BID rosuvastatin 20 MG tablet 20 mg PO HS Patient Comments: TAKE 1 TABLET BY MOUTH EVERY DAY AT BEDTIME metformin 500 MG tablet extended release 24 hr 500 mg PO DAILY montelukast 10 MG tablet 10 mg PO HS sitagliptin phosphate 100 MG tablet 100 mg PO DAILY furosemide 40 mg tablet 40 mg PO DAILYP PRN (Reason: Fluid) diclofenac sodium 1 % gel 2 g topical QID Qty: 100 0RF Rx Instructions: apply to single elbow, wrist or hand; for hand includes palm/fingers/back of hand Referrals Follow up/Referrals: Provider,Referral, MD [Primary Care Provider, Medical] - See instructions Activity Restrictions/Add. Instructions Additional Instructions/Restrictions: Velcro splint on your left wrist at all times. Follow-up with Dr. Benjamin for further imaging in 7 to 10 days to confirm whether or not fracture is present. Call your family doctor to establish care for this visit to the emergency department and schedule follow-up within 48 hours to ensure improvement. If you have any worsening of your condition or any other concerning signs or symptoms, return to the emergency department or your primary care doctor for further evaluation. Clinical Impressions Clinical Impression: Fall, Fracture of base of fifth metacarpal bone Print Language Print Language: [place] Discharge ED Provider: Flavio Aragon General Adult HPI General Chief complaint: Fall Stated complaint: FALL, KNEE AND WRIST PAIN Time Seen by Provider: 03/01/25 15:52 Mode of Arrival: EMS Source of Information: Patient and EMS Description of Symptoms (Recalled from ER Triage Doc. by RN): PT presents to Ed via EMS for evaluation of fall. PT fell on concrete and hit her left knee, right wrist and right breast pain. PT on 3L nasal canula. PT History of Present Illness HPI narrative: Please note that above description of symptoms, in this electronic medical record under categorization of recalled from ER triage doctor by RN are reflective of an initial nursing assessment, however, is not reflective of my full history and physical exam that was personally taken and clarified. Consequentially, this preceding description of symptoms, which may include the patient's categorized chief complaint in the EMR, do not reflect my personal clinical impression, and the ultimate description of history of present illness and patient stated complaints should be deferred to this section of the note. Unless stated otherwise or congruent with this section of the note, additional signs, symptoms, or incongruence should be interpreted as inaccurate with my clinical impression. Related Data Home Medications ?Medication ?Instructions ?Recorded ?Confirmed alprazolam 1 mg tablet 1 mg PO TIDP PRN Anxiety 08/24/18 02/23/25 omeprazole 40 mg capsule,delayed 40 mg PO BID Reflux/Acid reflux 08/24/18 02/23/25 release levalbuterol tartrate 45 2 puff inhalation Q4H Breathing 02/07/19 02/23/25 mcg/actuation aerosol inhaler problems milnacipran 100 mg tablet 100 mg PO BID FIBROMYALGIA 02/07/19 02/23/25 rosuvastatin 20 mg tablet 20 mg PO HS Cholesterol 02/08/19 02/23/25 levocetirizine 5 mg tablet 5 mg PO HS Allergy symptoms 10/11/20 02/23/25 metformin 500 mg tablet,extended 500 mg PO DAILY Diabetes 12/18/20 02/23/25 release 24 hr montelukast 10 mg tablet 10 mg PO HS Allergy symptoms 12/18/20 02/23/25 sitagliptin phosphate 100 mg tablet 100 mg PO DAILY Diabetes 12/18/20 02/23/25 aspirin 81 mg tablet,delayed 81 mg PO DAILY [facility] 04/11/21 02/23/25 release ergocalciferol (vitamin D2) 1,250 50,000 units PO WEEKLY Supplement 02/20/22 02/23/25 mcg (50,000 unit) capsule metoprolol succinate 50 mg 50 mg PO DAILY High blood pressure 03/31/22 02/23/25 tablet,extended release 24 hr furosemide 40 mg tablet 40 mg PO DAILYP PRN Fluid 10/30/22 02/23/25 potassium chloride 10 mEq 10 meq PO BID Supplement 01/22/23 02/23/25 tablet,extended release levalbuterol HCl 0.63 mg/3 mL 0.63 mg inhalation . PRN . 09/23/23 02/23/25 solution for nebulization linaclotide 72 mcg capsule 72 mcg PO DAILY PRN IBS 09/23/23 02/23/25 (Linzess) duloxetine 30 mg capsule,delayed 30 mg PO BID 12/24/23 02/23/25 release gabapentin 300 mg capsule 600 mg PO HS neuropathy 01/24/25 02/23/25 levothyroxine 100 mcg tablet 100 mcg PO DAILY 02/23/25 02/23/25 Previous Rx's ?Medication ?Instructions ?Recorded diclofenac sodium 1 % topical gel 2 g topical QID #100 grams 12/28/23 albuterol sulfate 90 mcg/actuation 2 inh inhalation Q6H PRN shortness 02/16/24 aerosol inhaler (Ventolin HFA) of breath or wheezing 90 days #18 grams baclofen 10 mg tablet 10 mg PO HS #14 tabs 02/17/24 tramadol 50 mg tablet 50 mg PO BID PRN pain #60 tabs 09/30/24 acetaminophen 300 mg-codeine 30 mg 1 tab PO BID PRN pain #60 tabs 01/27/25 tablet Allergies Allergy/AdvReac Type Severity Reaction Status Date / Time aripiprazole (From ABILIFY) Allergy Unknown Unknown Verified 02/23/25 14:21 allergy reaction ciprofloxacin (CIPROFLOXACIN) Allergy Unknown Unknown Verified 02/23/25 14:21 allergy reaction phenazopyridine Allergy Unknown Unknown Verified 02/23/25 14:21 (PHENAZOPYRIDINE) allergy reaction PFSH PFSH Disclaimer: The information contained in this section may have been updated after the patient was seen, as this information can be updated by other users. Medical History Encounter for pre-operative cardiovascular clearance Asthma COPD mixed type Pulmonary emphysema Encounter for screening for malignant neoplasm of lung Smoking greater than 30 pack years Oxygen dependent Nephrolithiasis History of left heart catheterization Smoker Hypothyroid Tobacco abuse COPD (chronic obstructive pulmonary disease) Nonspecific ST-T changes Tachycardia Diabetes HLD (hyperlipidemia) SOB (shortness of breath) Angina, class IV Surgical History History of surgical removal of skin lesion History of spinal surgery History of tonsillectomy History of colon surgery History of section History of bladder surgery Family History Other Family history of cancer Family history of diabetes mellitus Family history of heart disease Social History Smoking Status: Current every day smoker tobacco type: cigarettes packs per day: 1 second hand exposure: Yes alcohol intake: never counseling provided: provider counseling substance use type: denies use current occupational status: retired Travel in the last 8 weeks?: None household members: children housing: house current occupational exposures/hazards: No caffeine: No Have you lived/traveled outside [place] in past 30 days?: No Contact w/someone who lives/traveled outside [place] past 30 days?: No Exposure to someone with infectious disease in past 14 days?: No Do you have a fever (greater than 100.4 F or 38 C)?: No Have you tested positive for COVID-19?: No Exposed to someone with COVID-19 in past 14 days?: No Do you have a sore throat?: No Do you have a cough?: No Do you have any weakness?: No Do you have any diarrhea?: No Are you experiencing any unusual bleeding?: No Do you have any muscle aches/pain?: No Do you have any abdominal pain?: No Are you experiencing loss of taste or smell?: No Other Medical History Have you received the Flu Vaccine for this season: Yes Have you received the Pneumonia Vaccine: Yes ROS Obtained: Yes All systems reviewed & no additional complaints except as documented Physical Exam General General appearance: alert Head Head exam: atraumatic and normocephalic Eye Eye exam: Present normal appearance, PERRL and EOMI Neck Neck exam: Present normal inspection, full ROM, trachea midline and tenderness (Center of chest, no lower abnormality) Respiratory Respiratory exam: Absent respiratory distress, wheezes, stridor, accessory muscle use or prolonged expiratory phase Cardiovascular Cardiovascular exam: Present regular rate and other (Pulses equal symmetric in upper and lower extremities) Abdominal Exam Abdominal exam: Present soft; Absent distention, tenderness or pulsatile mass Extremities Exam Extremities exam: Present edema and other (Tenderness and swelling anterior knee. Structurally and neurovascularly intact. Also tenderness at the distal aspect of the left wrist and left fifth digit.) Neurological Exam Neurological exam: Present alert, oriented X3 and CN II-XII intact; Absent motor sensory deficit Skin Skin exam: Present warm and dry; Absent diaphoresis or erythema Medical Decision Making Medical Records Medical records reviewed: Yes I reviewed the patient's medical records. Screening: Per USPSTF and CDC recommendations, given the prevalence of disease in our region, it is our hospital?s policy to screen for HIV and viral Hepatitis for all patients aged 18 and over and those with ongoing risk factors. Eric Inquiry Pt receiving controlled substance: No Eric was queried for this patient: No Vital Signs: 03/01/25 15:43 03/01/25 17:01 03/01/25 17:45 Temperature 97.0 F L Temperature Source Oral Pulse Rate 80 80 Pulse Rate [Left] 100 H Respiratory Rate 18 18 18 Blood Pressure 120/69 127/72 Blood Pressure [Right Arm] 109/54 L Blood Pressure Mean [Right Arm] 72 02 Sat by Pulse Oximetry 91 L 90 L 93 L Oxygen Delivery Method Nasal Cannula Room Air Room Air Oxygen Flow Rate (LPM) 3 03/01/25 17:48 Temperature Temperature Source Pulse Rate Pulse Rate [Left] Respiratory Rate Blood Pressure Blood Pressure [Right Arm] Blood Pressure Mean [Right Arm] 02 Sat by Pulse Oximetry 92 L Oxygen Delivery Method Room Air Oxygen Flow Rate (LPM) Orders (Tests/Meds): ORDERS Category Date Time Status Forearm XR left 2 views [XR forearm LT 2V] Stat Exams 03/01/25 16:04 Completed Hand XR left 2 views [XR hand LT 2V] Stat Exams 03/01/25 16:05 Completed Knee XR right 3 views [XR knee RT 3V] Stat Exams 03/01/25 16:03 Completed Wrist XR left minimum 3 views [XR wrist LT min 3V] Stat Exams 03/01/25 16:05 Completed XR chest portable Stat Exams 03/01/25 16:02 Completed Medical Decision Narrative: 79-year-old female presenting with fall. She states that she walked on the porch with her dog, leash got caught up in her feet and she fell to the side. She is braced herself with her left upper extremity, hit her right knee on the ground. Able to bear weight, but with pain. Has not taken anything for the pain. Came in for further evaluation. On arrival, in wheelchair. Tenderness and swelling with associated bruising anterior knee. Structurally and neurovascularly intact. Also tenderness at the distal aspect of the left wrist and left fifth digit. Differential includes sprain, strain, fracture, dislocation, among others. X-rays were obtained. On independent interpretation, I do not appreciate any structural bony abnormality, but she does have a small avulsion fracture of the base of her fifth metacarpal. Radiology read a couple of other concerns for fractures. On repeat evaluation, patient having absolutely no pain in the dorsum or palmar aspect of her hand otherwise. Patient placed in Velcro splint because patient at baseline without signs or symptoms of clinical decompensation, deemed appropriate for discharge. Results were relayed to patient who voiced understanding and were agreeable to outpatient management and follow up. I discussed my clinical impression with patient and answered all questions. At this time, the evidence for any other entities in the differential is insufficient to warrant any further testing or ED observation. This was explained as well. Advisory was given that persistent or worsening symptoms require further evaluation. I confirmed the understanding of this discussion. Professor Of Biochemistry disclaimer Much of this encounter note is an electronic edger machine setter spoken language to printed text. Electronic edger machine setter of the spoken language may permit errors. Although I have reviewed the note, some errors may still exist. Critical Care Critical Care Time Critical Care Time: No
[2025-03-01 17:45] VITALS: BP 127/72; PULSE 80; RESP 18; O2SAT 93
[2025-03-01 17:48] VITALS: O2SAT 92
--- NOTE | 2025-03-01 17:55 | PC.NURSE ---
I rounded on the pt. She inquired about her xray results. no new complaints. no other needs voiced. notified. call juan in reach.
[2025-03-01 18:27] VITALS: BP 119/70; PULSE 80; RESP 16; TEMP 37; O2SAT 92
== END 2025-03-01 18:28 | disposition home or self-care (01) ==
PROVIDERS: Emergency Provider Emergency Medicine
DX: S62.316A Displaced fracture of base of fifth metacarpal bone, right hand, initial encounter for closed fracture (principal); M25.562 Pain in left knee; M25.531 Pain in right wrist; F17.210 Nicotine dependence, cigarettes, uncomplicated; W19.XXXA Unspecified fall, initial encounter
CPT/HCPCS: 71045; 73090; 73110; 73120; 73562; 99284

== ENCOUNTER 2025-03-15 12:56 | Outpatient (CLI) | payer MEDICARE, MEDICAID, SELFPAY ==
--- OUTSIDE RECORDS SUMMARY | 2025-03-06 10:30 | XMS_ITS ---
Author Organization [facility] Address [address] [facility] [address] [place] [address] Care Team Providers Care Medical Surgery Nurse Name Role Phone Claire Ramirez Primary Care Provider [phone] Delvin Newton Unavailable Unavailable Allergies Allergen (clinical [...] 03/18/2023 Active Vitamin D (Ergocalciferol) 1.25 MG (90872 UT) 1 cap(s) orally once a week; Duration: 30 day(s) Active Trelegy Ellipta 100 MCG-62.5 MCG-25 MCG/INH 1 PUFF(S) INHALED ONCE A DAY; Duration: 30 DAYS *Please review and pick correct strength-formulati on from [employer] options. If intended option is not shown, discontinue and re-order from Quick Search* 08/24/2023 Active POTASSIUM CHLORIDE (LLB-IFEL-VON 10) 10 MEQ TAKE ONE TABLET BY [...] review and pick correct strength-formulati on from [employer] options. If intended option is not shown, [...] review and pick correct strength-formulati on from [employer] options. If intended option is not shown, [...] Signs Temperature 97.9 degrees Fahrenheit 03/06/20 25 Heart Rate 104 /min 03/06/2025 Blood pressure systolic 106 mm Hg 03/06/20 25 Blood pressure diastolic 72 mm Hg 025 Height 5 ft 5 in in 03/06/2025 Weight 193 lbs 03/06/2025 BMI 32.11 kg/m2 03/06/2025 Encounters Encounter Location Date Provider Diagnosis [facility] [address] [facility] [address] [place], [place] [address] 03/06/2025 Claire Ramirez Fall from standing, subsequent [...] take half a tablet along with 1 nuux-fvc-tipjmev acetaminophen every 6 hours as needed for [...] 6 Weeks, Reason: Provider Name:Claire Irving ce, 04/13/2025 02:45:00 PM, [address], [address], [place], [address], Progress Notes * Andrés LEMAaDOB: 7 (79 yo F)Acc No.[id number]:03/06/2025 Progress Notes Patient: Sindy SWARTZ Provider: SLAVA Grimaldo :1945 A ge:79 Y S ex:Female Date:03/06/2025 Address:[address] [place] [address], [id number] Subjective: * Chief Complaints: * [...] She was advised to treat conservatively with jovd-bqp-fbcqeuz analgesics, ice. She saw orthopedics today and [...] *Please review and pick correct strength-formulation from [employer] options. If intended option is not shown, [...] check*, Taking Vitamin D (Ergocalciferol) 1.25 MG (00549 UT) Capsule 1 cap(s) orally once a week , Taking POTASSIUM CHLORIDE (UTY-XODC-XCY 10) 10 MEQ TABLET, EXTENDED RELEASE TAKE [...] *Please review and pick correct strength-formulation from [employer]ogn[employer] options. If intended option is not shown, [...] *Please review and pick correct strength-formulation from [employer] options. If intended option is not shown, [...] Date: 03/06/2025 Generated for Honey aquino/Francisco/Gary on: 03/15/2025 01:02 PM EDT History and Physical Notes * [...]
--- OUTSIDE RECORDS SUMMARY | 2025-03-15 13:02 | XMS_ITS | Patient Health Record ---
Author Organization [facility] Address [address] [place] [address] Care Team Providers Care Tank Pumper Panelboard Name Role Phone Claire Ramirez Primary Care Provider [phone] Delvin Newton Unavailable Unavailable Sheryl Velasquez Unavailable [phone] Migration, Provider Unavailable Unavailable Allergies Allergen (clinical drug ingredient) Drug/Non Drug Allergy documented on EMR Reaction Allergy Type Onset Date Status ARIPIPRAZOLE ANALOGU ES (uncoded) itching Allergy Active aripiprazole Abilify itching Drug Allergy Acti ve aripiprazole ARIPiprazole itching Drug Allergy A ctive Results Component Value Reference Range Notes VITAMIN D,25-OH,TOTAL,IA (17 306) Reviewed date:04/19/2024 01:08:53 PM Interpretation: Performing Lab:[facility] [id number] [facility] Health[facility]fhpWS[address] David Calles Notes/Report: NON-FASTING; NON-FASTING; NON-FASTING; NON-FASTING [...] D, (D2,D3), LC/MS/MS is recommended: order code 27708 (patients >2yrs). See Note 1 Note 1 For additional information, please refer to http://[email or web address]/faq/QHM187 (This link is being provided for informational/ educational purposes only.) FERRITIN (457) Reviewed date:04/19/2024 01:08:53 PM Interpretation: Performing Lab:[facility] [address], RivalSoftEqzmPM[address] David Calles Notes/Report: NON-FASTING; NON-FASTING; NON-FASTING; NON-FASTING FERRITIN 88 16-288 ng/mL CBC (INCLUDES DIFF/PLT) (639 9) Reviewed date:04/19/2024 01:08:53 PM Interpretation: Performing Lab:[facility], ShareMeisterKvywSV[address] David Calles Notes/Report: NON-FASTING; NON-FASTING; NON-FASTING; NON-FASTING WHITE BLOOD CELL COUNT 8.3 3.8-10.8 Thousand/ uL RED BLOOD CELL COUNT 4.40 3.80-5.10 Million/uL HEMOGLOBIN 13.6 11.7-15.5 g/dL HEMATOCRIT 43.0 35.0-45.0 % MCV 97.7 80.0-100.0 fL MCH 30.9 27.0-33.0 pg MCHC 31.6 32.0-36.0 g/dL RDW 13.3 11.0-15.0 % PLATELET COUNT 256 140-400 Thousand/uL MPV 9.8 7.5-12.5 fL ABSOLUTE NEUTROPHILS 3561 4293-1957 cells/uL ABSOLUTE LYMPHOCYTES 3884 850-3900 cells/uL ABSOLUTE MONOCYTES 523 200-950 cells/uL ABSOLUTE EOSINOPHILS 249 15-500 cells/uL ABSOLUTE BASOPHILS 83 0-200 cells/uL NEUTROPHILS 42.9 LYMPHOCYTES 46.8 MONOCYTES 6.3 EOSINOPHILS 3.0 BASOPHILS 1.0 COMPREHENSIVE METABOLIC PANE L (79329) Reviewed date:04/19/2024 01:08:52 PM Interpretation: Performing Lab:[facility] [address], Wood HrikDG[address] David Calles Notes/Report: NON-FASTING; NON-FASTING; NON-FASTING; NON-FASTING [...] 13 10-35 U/L ALT 8 6-29 U/L CULTURE, URINE, ROUTINE (395 ) Reviewed date:01/12/2025 03:27:05 PM Interpretation: Performing Lab:[facility], [facility] David Calles Notes/Report: NON-FASTING; NON-FASTING; NON-FASTING CULTURE, URINE, ROUTINE SEE NOTE E.coli COMMENT: Additional non-predominating organism(s) isolated. These organisms, commonly found on external and internal genitalia, are considered colonizers. No further testing performed. CULTURE, URINE, ROUTINE Micro Number: [id number] Test Status: Final Specimen Source: Urine, clean [...] cefdinir, cefpodoxime, cefprozil, cefuroxime, cephalexin and loracarbef. TSH W/REFLEX TO FT4 (89146) Reviewed date:01/12/2025 03:27:05 PM Interpretation: Performing Lab:[facility] [address], ShareMeisterHzkpRH[address] David Calles Notes/Report: NON-FASTING; NON-FASTING; NON-FASTING TSH W/REFLEX TO FT4 1.05 0.40-4.50 mIU/L HEMOGLOBIN A1c (496) Reviewed date:01/12/2025 03:27:05 PM Interpretation: Performing Lab:[facility] [address], ShareMeisterJowyIQ[address] David Calles Notes/Report: NON-FASTING; NON-FASTING; NON-FASTING HEMOGLOBIN [...] this should be confirmed with a follow-up BASIC METABOLIC PANEL (41135 ) Reviewed date:01/12/2025 03:27:05 PM Interpretation: Performing Lab:[facility] [address], [place]ivalSoftMezaON[address] David Calles Notes/Report: NON-FASTING; NON-FASTING; NON-FASTING GLUCOSE [...] 33 20-32 mmol/L CALCIUM 9.6 8.6-10.4 mg/dL H-TVITD Reviewed date:10/14/2024 10:29:15 AM Interpretation: Performing [...] HDL 46 40-60 mg/dl CHLHDL 2.7 1-3.5 M-Comprehensive Metabolic Pa amanda Reviewed date:10/14/2024 10:29:15 [...] AGRATIO 1.7 1.1-1.8 ALP 52 38-126 U/L Ankle/Brachial Index--Segmen hanna BPs Reviewed date:01/20/2025 03:12:43 PM Interpretation: Performing Lab: Notes/Report: Urinalysis Reviewed date:12/26/2024 06:23:01 PM Interpretation: Performing Lab: Notes/Report: Color/Clarity yellow Leuk trace Nitrite pos Urobili 0.2 Protein >=300 pH 5.5 Blood mod Sp. Gr. >=1.030 Ketone trace Bili small Glucose neg DEXA Hip and Spine - Screeni ng Reviewed date:01/20/2025 03:12:44 PM Interpretation: Performing Lab: Notes/Report: Mammogram : Bilateral Reviewed date:01/23/2025 12:32:30 PM Interpretation: Performing Lab: Notes/Report: M-Complete Blood Count Auto Diff Reviewed date:10/14/2024 [...] 0.3 0.0-0.4 K/mm3 BA# 0.1 0-0.2 K/mm3 M-Hemoglobin A1C Reviewed date:10/14/2024 10:29:15 AM Interpretation: Performing Lab: Notes/Report: HGBA1C 6.5 4.0-6.0 % < 6% Non-Diabetic Level < 7% Controlled Diabetic Level > 8% Poorly Controlled Diabetic Level CT Scan : Chest, Lung Cancer Screening Reviewed date:01/20/2025 03:12:44 PM Interpretation: Performing Lab: Notes/Report: H-M[facility] Reviewed date:10/14/2024 10:29:15 AM Interpretation: Performing Lab: Notes/Report: Units: mg/g creat Normal: 0 - 29 Moderately Increased: 30 - 300 Severely Increased: >300 UCREAT 98 Not Estab. mg/dL Random urine reference range not established. 24 hour urine samples recommended. MICROALB 62.700 0-16.7 mg/L MALBCREAT 63.9 Reason For Referral Reason Mammogram DEXA sca n Screening CT Chest Diagnosis 1 Medicare annual well ness visit, subsequent (Z00.00) Referral Organization [facility] Referring Provider First Name Claire Referring Provider Last Name Ashley Referring Provider [facility] Referred Organization [facility] Referred Address [address] [place] [phone], Referred Provider Specialty Diagnostic R adiology General Notes Estefani Huang 2024 03:36:01 PM >sent to [facility] to schedule, Estefani Huang 10/07/2024 04:27:59 PM >checked [facility] Referral Priority Routine Referral Appointment Date 10/25/2024 Reason Bilat lower extremit y SVEN Deyong Diagnosis 1 Dependent rubor (L53 .9) Referral Organization [facility] Referring Provider First Name Claire Referring Provider Last Name Ashley Referring Provider [facility] Referred Organization [facility] Referred Address [address] [place] [phone], Referred Provider Specialty Diagnostic R adiology General Notes Estefani Huang 2024 08:52:49 AM >sent to [facility] Referral Priority Routine Medications Medication SIG (Take, Route, Frequency, Duration) Notes Start Date End Date Status PORTABLE OXYGEN (OXYLITE) DX: COPD *Please review for potential replacement for e-prescription and drug interaction check* 03/18/2023 Active Vitamin D (Ergocalciferol) 1.25 MG (75439 UT) 1 cap(s) orally once a week; Duration: 30 day(s) Active Aspirin 81 MG 1 tab(s) orally once a day; Duration: 30 day(s) Active Trelegy Ellipta 100 MCG-62.5 MCG-25 MCG/INH 1 PUFF(S) INHALED ONCE A DAY; Duration: 30 DAYS *Please review and pick correct strength-formulati on from Bright Pattern options. If intended option is not shown, discontinue and re-order from Quick Search* 08/24/2023 Active Montelukast Sodium 10 MG 1 tab(s) orally once a day; Duration: 90 days Active POTASSIUM CHLORIDE (FBC-OYJV-SJD 10) 10 MEQ TAKE ONE TABLET BY MOUTH THREE TIMES A WEEK; Duration: 84 *Please review for potential replacement for e-prescription and drug interaction check* Active Furosemide 40 MG 1 tab(s) orally 2 times a day; Duration: 30 days Active Gabapentin 300 MG 2 caps orally once a day at bedtime; Duration: 90 days 10/31/2024 Active Levalbuterol HCl 0.63 MG/3ML 3 mL by nebulizer every 6 hours as needed for shortness of breath; Duration: 30 days Active Promethazine-DM 6.25-15 MG/5ML 5 mL as needed Orally twice a day; Duration: 7 days 03/09/2025 Active Methocarbamol 500 MG 1 tablet Orally every 8 hours as needed for muscle pain; Duration: 7 days 03/08/2025 Active Levalbuterol HCl 45 MCG/INH 2 PUFF(S) INHALED EVERY 4 HOURS NEEDED FOR COPD; Duration: 30 DAYS *Please review and pick correct strength-formulati on from Bright Pattern options. If intended option is not shown, discontinue and re-order from Quick Search* Active Metoprolol Succinate ER 50 MG TAKE ONE TABLET BY MOUTH EVERY DAY; Duration: 30 days Active metFORMIN HCl ER 500 MG TAKE ONE TABLET BY MOUTH TWICE DAILY; Duration: 90 Active DULoxetine HCl 30 MG 1 cap(s) orally 2 times a day; Duration: 90 days Active Acetaminophen-Codeine 300-30 MG 1 tablet as needed Orally twice a day Active Omeprazole 40 MG 1 cap(s) orally twice daily; Duration: 30 days Active BUPIVACAINE HYDROCHLORIDE 0.25% DIRECTED 10mg/mL w daily dose of 8.782mg/day via pain pump *Please review for potential replacement for e-prescription and drug interaction check* Active Levothyroxine Sodium 100 MCG 1 tab(s) orally once a day; Duration: 30 days Active Rosuvastatin Calcium 20 MG 1 tab(s) orally once a day; Duration: 90 days Active Levocetirizine Dihydrochloride 5 MG 1 tab(s) orally once a day (in the evening); Duration: 90 days Active Januvia ( PHOSPHATE) 100 MG 1 TAB(S) ORALLY ONCE A DAY *Please review and pick correct strength-formulati on from Bright Pattern options. If intended option is not shown, [...] for anxiety; Duration: 30 days 03/03/2025 Active linaCLOtide 72 MCG 1 cap(s) orally once a day Active Immunizations Vaccine Route Administration Date Status [...] Notes: vapes vapes vapes vapes vapes vapes vapes Problems Problem Type SNOMED Code ICD Code Onset Dates Problem Status W/U Status Risk Notes Problem Hypothyroidism (27300275) Hypothyroidism, unspecified (E03.9) Active confirmed Problem Type 2 diabetes mellitus with other specified complication (E11.69) Active confirmed Problem Tobacco user (825463544) Nicotine dependence, cigarettes, uncomplicated (F17.210) Active confirmed Problem Anxiety disorder (143889351) Anxiety disorder, unspecified (F41.9) Active confirmed Problem Psychophysiologic insomnia (867318632) Psychophysiologic insomnia (F51.04) Active confirmed Problem Obstructive sleep apnea syndrome (disorder) (66872877) Obstructive sleep apnea (adult) (pediatric) (G47.33) Active confirmed Problem Chronic pain (10386398) Other chronic pain (G89.29) Active confirmed Problem Paroxysmal atrial fibrillation (576465242) Paroxysmal atrial fibrillation (I48.0) Active confirmed Problem Chronic respiratory failure (54818810) Chronic respiratory failure, unspecified whether with hypoxia or hypercapnia (J96.10) Active confirmed Problem Chronic respiratory failure (49848426) Chronic respiratory failure with hypoxia (J96.11) Active confirmed Problem Localized, primary osteoarthritis of the shoulder region (887818694) Primary osteoarthritis, right shoulder (M19.011) Active confirmed Problem Localized, primary osteoarthritis of the shoulder region (775215651) Primary osteoarthritis, left shoulder (M19.012) Active confirmed Problem Fibromyalgia (422367928) Fibromyalgia (M79.7) Active confirmed Problem Weakness (27721973) Weakness (R53.1) Active con firmed Problem Dependence on enabling machine or device (327431725) Dependence on other enabling machines and devices (Z99.89) Active confirmed Problem Anxiety (48154555) Anxiety (F41.9) Active confi rmed Problem Vitamin D deficiency (47084107) Vitamin D deficiency (E55.9) Active confirmed Problem Essential hypertension (92845332) Essential hypertension (I10) Active confirmed Problem Acute exacerbation of chronic obstructive airways disease (991261488) COPD exacerbation (J44.1) Active confirmed Problem Body mass index 30.00 to 34.99 (712230254859774) BMI 31.0-31.9,adult (Z68.31) Active confirmed Problem Chronic pain syndrome (140247246) Chronic pain disorder (G89.4) Active confirmed Problem Gastric reflux (105866570) Gastric reflux (K21.9) Active confirmed Problem BMI 30+ - obesity (094374678) BMI 32.0-32.9,adult (Z68.32) Active confirmed Problem Hyperlipidemia (21076380) Hyperlipidemia, unspecified (E78.5) Active confirmed Problem 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, 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) Active confirmed Problem Cigarette smoker (32044201) Cigarette smoker (F17.210) Active confirmed Problem COPD - Chronic obstructive pulmonary disease (24604642) Chronic obstructive pulmonary disease, unspecified COPD type (J44.9) Active confirmed Problem Obesity (105365383) Non morbid o besity, unspecified obesity type (E66.9) Active confirmed Problem Acute exacerbation of chronic obstructive airways disease (016705243) Acute exacerbation of COPD with asthma (J44.1) Active confirmed Problem Overactive urinary bladder (disorder) (966758405) OAB (overactive bladder) (N32.81) Active confirmed Problem Iron deficiency anemia (42897567) Iron deficiency anemia, unspecified iron deficiency anemia type (D50.9) Active confirmed Problem Body mass index 25-29 - overweight (605356637) BMI 26.0-26.9,adult (Z68.26) Active confirmed Problem Weight loss advised (400312373) Weight loss counseling, encounter for (Z71.3) Active confirmed Problem Increased hemoglobin (620800426) Elevated hemoglobin (D58.2) Active confirmed Problem Microcytic anemia (926060111) Microcytic anemia (D50.9) Active confirmed Problem Type II diabetes mellitus without complication (472974669) Type 2 diabetes mellitus without complication, without long-term current use of insulin (E11.9) Active confirmed Problem Type II diabetes mellitus without complication (127904771) Controlled type 2 diabetes mellitus without complication, without long-term current use of insulin (E11.9) Active confirmed Problem Pica (39054658) Pica (F50.89) Active confirmed Problem Mixed incontinence (053547190) Urinary incontinence, mixed (N39.46) Active confirmed Problem Anxiety state (657390524) Anxiety state, unspecified (F41.1) Active confirmed Problem Postmenopausal osteoporosis (663126872) Postmenopausal osteoporosis (M81.0) Active confirmed Problem Major depression, single episode (29354496) Chronic major depressive disorder (F32.9) Active confirmed Problem Body mass index 30.00 to 34.99 (834364005347321) Adult BMI 31.0-31.9 kg/sq m (Z68.31) Active confirmed Problem Degeneration of thoracic intervertebral disc (83960783) Thoracic degenerative disc 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) Active confirmed Problem Chronic obstructive pulmonary disease (04718714) Advanced COPD (J44.9) Active confirmed Problem Chronic hypoxemic respiratory failure (150909416) Chronic hypoxemic respiratory failure (J96.11) Active confirmed Problem Cough (16335017) Cough (R05.9) Active confirmed Problem Vitamin D intoxication (15710662) Vitamin D intoxication (E67.3) Active confirmed Vital Signs Heart Rate 104 /min 03/06/2025 Temperature 97.9 degrees Fahrenheit 03/06/2025 Oximetry 89 10/04/2024 Patient is 88% RA, improves to 94% with 2 L NC Blood pressure diastolic 72 mm Hg 03/06/2025 Height 5 ft 5 in in 03/06/2025 Blood pressure systolic 106 mm Hg 03/06/2025 Weight 193 lbs 03/06/2025 BMI 32.11 kg/m2 03/06/2025 Encounters Encounter Location Date Provider Diagnosis [facility] [address] [address] 12/17/2024 Provider Migration Chronic obstructive pulmonary disease, unspecified COPD type J44.9 ; Medicare annual wellness visit, subsequent Z00.00 ; Chronic major depressive disorder F32.9 and Advanced COPD J44.9 [facility] [address] [place] [address] 04/18/2024 Claire Ramirez Psychophysiologic insomnia F51.04 ; Other chronic pain G89.29 ; Vitamin D intoxication E67.3 ; Elevated hemoglobin D58.2 ; Elevated hematocrit R71.8 ; Type 2 diabetes mellitus with other specified complication E11.69 and Hyperlipidemia, unspecified E78.5 [facility] [address] [place] [address] 06/30/2024 Claire Ramirez Immunization(s) administered Z23 ; Psychophysiologic insomnia F51.04 ; Other chronic pain G89.29 and Chronic constipation K59.09 [facility] [address] [place] [address] 10/04/2024 Claire Ramirez Psychophysiologic insomnia F51.04 ; [...] tobacco use Z87.891 and Hypothyroidism, unspecified E03.9 [facility] [address] [facility] [address] [place] [address] 12/26/2024 Claire Ramirez Dysuria R30.0 ; Acut e UTI N39.0 and Dependent rubor L53.9 [facility] [address] [place] [address] 01/09/2025 Claire Ramirez Psychophysiologic insomnia F51.04 ; Other chronic pain G89.29 ; Type 2 diabetes mellitus with other specified complication E11.69 ; Chronic major depressive disorder F32.9 ; Essential hypertension I10 ; Advanced COPD J44.9 ; Hypothyroidism, unspecified E03.9 and Dysuria R30.0 [facility] [address] [place] [address] 03/06/2025 Claire Ramirez Fall from standing, subsequent encounter W19.XXXD ; Chest wall pain R07.89 ; Closed nondisplaced fracture of third metacarpal bone of left hand, unspecified portion of metacarpal, sequela S62.303S ; Contusion of right knee, subsequent encounter S80.01XD and Contusion of right lower leg, subsequent encounter S80.11XD [facility] [address] [address] 07/20/2024 Claire Ramirez [facility] [address] [place] [address] 07/26/2024 Claire Ramirez [facility] [address] [place] [address] 10/04/2024 Claire Ashley Breast cancer screen ing by mammogram Z12.31 ; History of nicotine dependence Z87.891 and Asymptomatic postmenopausal state Z78.0 [facility] [address] [place] [address] 10/14/2024 Claire Ashley [facility] [address] [place] [address] 11/10/2024 Claire Ashley [facility] [address] [place] [address] 12/27/2024 Claire Ashley Dependent rubor L53. 9 [facility] [address] [place] [address] 01/05/2025 Claire Ashley [facility] [address] [place] [address] 01/12/2025 Claire Ashley [facility] [address] [place] [address] 03/06/2025 Claire Ashley [facility] [address] [place] [address] 03/08/2025 Claire Ashley [facility] [address] [place] [address] 03/09/2025 Claire Ashley Assessments Encounter Date Diagnosis (ICD Code) Assessment Notes Treatment Notes Treatment Clinical Notes Section Notes 04/18/2024 Psychophysiologic insomnia (ICD-10 - F51.04) Again [...] 01/09/2025 Other chronic pain (ICD-10 - G89.29) 03/06/2025 Chest wall pain (ICD-10 - R07.89) 03/06/2025 Fall from standing, subsequent encounter (ICD-10 [...] take half a tablet along with 1 yqdx-wjz-kamcpfe acetaminophen every 6 hours as needed for her pain over the next week or 2. Return precautions reviewed 03/06/2025 Closed nondisplaced fracture of third metacarpal bone of left hand, unspecified portion of metacarpal, sequela (ICD-10 - S62.303S) 01/09/2025 Type 2 diabetes mellitus with other [...] (ICD-10 - F32.9) stable on current regimen 03/06/2025 Contusion of right knee, subsequent encounter (ICD-10 - S80.01XD) 03/06/2025 Contusion of right lower leg, subsequent encounter (ICD-10 - S80.11XD) 01/09/2025 Essential hypertension (ICD-10 - I10) history [...] Randm Ur 025 RHEUMATOID FACTOR ([id number]) 07/07/2023 Next Appt Details Provider Name:Claire Irving ce, 04/13/2025 02:45:00 PM, [address], [place], [address], Insurance Providers Payer Name Payer Address Payer Phone Subscriber Number Group Number Insured Name Patient Relationship to Insured Coverage Start Date Coverage End Date [employer] [address] [address] [place] [address] [id number] Sindy Lema Self - patient is the insured Medications [...] pain pump 08/2022 Hospitalization History Reason Date(Month/Year) UTI, VIral Infection & COPD 2022 kidney stone 2021 rectal bleeding 2020 all above surgeries
--- OUTSIDE RECORDS SUMMARY | 2025-03-15 13:02 | XMS_ITS | Clinical Summary ---
Author Organization [facility] Address [address] [place] [address] Phone Care Team Providers Care Public Address Technician Name Role Phone Greg Brar MD Unavailable [phone] James Nielsen MD Unavailable [phone] Sharon Rao MD Unavailable [phone] Salvador Zamorano MD Primary Care Provider [phone] Allergies Active Allergy Reactions Criticality Noted Date [...] 30 Tab 2 08/20/20 15 Active methen-m.blue-s.ph op-zxkfn-fcw 118-10-40.8-36 mg Oral Capsule Take 1 Tab [...] Type 2 diabetes mellitus without complication, unspecified [facility] insulin use status Take 1 Tab by [...] complication, without long-term current use of insulin ([facility]) Take 1 Tab by mouth 2 times [...] MENISCECTOMY CHONDROPLASTY; Surgeon: Jose Pope MD; Location: [facility]IN OR; Service: Orthopedics CARDIAC CATHETERIZATION [...] Last Done Comments Wellness Exam Medicare 1949 Kidney Health: uACR 1956 Diabetic Eye Exam 1964 DTaP/TDaP/Td (1 - Tdap) 1965 Zoster (2 of 3) 11/21/2016 09/26/2016 Kidney Health: eGFR 09/26/2017 09/26/2016, 06/24/2016, 03/14/2016, Additional history exists Lipids 09/26/2017 09/26/2016, 06/14, 11/15/2015, Additional history exists Low Dose Lung Cancer Screening 09/26/2017 09/26/2016 (Declined), 07/22/2016, 01/01/2015, Additional history exists Hemoglobin A1c 01/08/2018 07/10/2017, 02/14, 09/26/2016, Additional history exists RSV or 60+ (1 - 1-dose 75+ series) 2021 COVID-19 Vaccine ( season) 2024 Influenza Vaccine (Season Ended) 2025 [...] RMA HEMOGLOBIN A1C < 7.0 Result Component 6.3(10/27/201 7 2:39 PM EDT) No Givens, Tamiko Toshia, RMA Medical Devices Implanted Type Area Straddle Bug Driver Device Identifier Shelf Expiration Date Model / Serial / Lot Interstim Bladder Stimulator Hip [employer]ON[employer] [id number] / / Bilateral Intraocular Lenses Procedures Procedure Name Priority Date/Time Associated Diagnosis Comments POCT GLYCATED HEMOGLOBIN, TOTAL Routine 07/10/2017 2:39 PM EDT Controlled type 2 diabetes mellitus without complication, without long-term current use of insulin (HCC) COMPREHENSIVE METABOLIC PANEL Routine 09/26/2016 11:46 AM EST Controlled [...] Relevant to Health Maintenance Results * POCT GLYCATED HEMOGLOBIN, TOTAL (07/10/2017 2:39 PM EDT) Hemoglobin A1C 6.3 % SEP OFFICE Lot Number SEP OFFICE Expiration Date SEP OFFICE SeriAl # SEP OFFICE 07/10/2017 2:39 PM EDT us Ely Carpenter MD POINT OF CARE TEST ORDERABLES Final Result SEP OFFICE * ACUTE HEPATITIS PANEL (09/26/2016 11:46 AM EST) Hep Bs Ag Negative Negative [facility] Hep B Core IgM Negative Negative [facility] Hep A IgM Negative Negative [facility] Hep C Ab Negative Negative [facility] Blood specimen (specimen) UPPER LIMB STRUCTURE / Unknown 09/26/2016 11:46 AM EST 09/26/2016 8:13 PM EST Ely Carpenter MD CHEMISTRY ORDERABLES Edited Re sult - Final Performing Organization Address [facility] de Phone Number [facility] [address] [place] [address] * (ABNORMAL) LIPID SCREEN (09/26/2016 11:46 AM EST) Cholesterol 174 <=200 mg/dL [facility] Comment: < 200 Desirable 200 - 239 Borderline High >= 240 High Triglyceride 165(H) <=150 mg/dL [facility] Comment: < 150 Normal 150 - 199 Borderline High 200 - 499 High >= 500 Very High HDL 65 >=40 mg/dL [facility] Comment: > 60 Optimal 40 - 60 Acceptable < 40 Low LDL Calculated 76 <=100 mg/dL [facility] Comment: < 100 Optimal 100 - 129 Near or above optimal 130 - 159 Borderline High 160 - 189 High >= 190 Very High Blood specimen (specimen) UPPER LIMB STRUCTURE / Unknown 09/26/2016 11:46 AM EST 09/26/2016 8:13 PM EST Ely Carpenter MD CHEMISTRY ORDERABLES Edited [facility] - Final Performing Organization Address [facility] Phone Number [facility] [address] [place] [address] * (ABNORMAL) COMPREHENSIVE METABOLIC PANEL (09/26/2016 11:46 AM EST) Sodium 142 136 - 145 mmol/L [facility] Potassium 5.2(H) 3.5 - 5.0 mmol/L [facility] Chloride 101 98 - 107 mmol/L [facility] Total CO2 30(H) 22 - 29 mmol/L [facility] Anion Gap 11 7 - 16 mmol/L [facility] Calcium 9.7 8.8 - 10.2 mg/dL [facility] Glucose Lvl 115(H) 82 - 100 mg/dL [facility] BUN 16 8 - 23 mg/dL [facility] Creatinine 0.81 0.51 - 1.30 mg/dL [facility] Albumin 4.2 3.2 - 4.6 gm/dL [facility] Total Protein 7.1 6.4 - 8.3 gm/dL [facility] Bili Total 0.2 0.1 - 1.3 mg/dL [facility] AST 15 <=40 IU/L [facility] ALT 14 <=41 IU/L [facility] Alk Phos 90 35 - 104 IU/L [facility] GFR Afr Am >60 [facility] GFR Non Afr Am >60 [facility] Blood specimen (specimen) UPPER LIMB STRUCTURE / Unknown 09/26/2016 11:46 AM EST 09/26/2016 8:13 PM EST us Ely Carpenter MD CHEMISTRY ORDERABLES Edited Re sult - Final [facility] [address] [place] [address] * CT CHEST W CONTRAST (01/01/2015 2:47 [...] CONTRAST Jan 01, 2015 02:47:16 PM HISTORY: 786.2-Sfzyv-NLS-9-CM Comparison 04/23/2014. Technical 75 cc Isovue-370 Previously [...] CONTRAST Jan 01, 2015 02:47:16 PM HISTORY: 786.1-Cfjli-CGU-9-CM Comparison 04/23/2014. Technical 75 cc Isovue-370 Previously [...] significantly changed since last exam. Reported by: EVERARDO Cervantes PA-C on 04/01/2013 1:40:00 PM. Procedure Note Winifred [...] PA-C, CCD on 04/01/2013 1:40:00 PM. Devendra Smith MD IMG DEXA ORDERABLES Final Resul t from Last 3 Months or Most Recently Relevant to Health Maintenance Insurance [facility] [employer] [facility] [address] [facility] [place] [address] [employer] MEDICARE PPO MR Advance Directives For more information, please contact: [phone] * Full Code (Latest Code Status on File) Date Activated Date Inactivated Comments 04/18/2015 8:32 AM 04/20/2015 6:29 PM * Full Code Date Activated Date Inactivated Comments 01/02/2015 10:12 PM 01/03/2015 9:25 PM * Full Code Date Activated Date Inactivated Comments 07/03/2014 2:33 AM 07/04/2014 6:32 PM * Full Code Date Activated Date Inactivated Comments 04/24/2014 2:19 AM 04/25/2014 8:45 PM Care Teams Public Address Technician Relationship Specialty Start Date End Date Sharon Rao MD [address] [place] [address] PCP - Hematology/Oncology Internal Medicine-Medical Oncology 07/16/15 Salvador Zamorano MD [address] [place] [address] [address] [place] [address] PCP - General Internal Medicine 04/21/18 Greg Brar MD Internal Medicine-Gastroentero logy 03/18/13 James Nielsen MD [address] [address] Internal Medicine-Cardiovascul ar Disease 02/14/15
--- OUTSIDE RECORDS SUMMARY | 2025-03-15 13:02 | XMS_ITS | Data Portability ---
Author Organization [place] [facility], [facility] Address [address] [place] [address] Assessment Encounter Date Assessment Date Assessment LastModified [...] By Organization Details Last Modified Time 03/07/2024 [id number] back pain: care instructions abux Not available 03/07/2024 16:17:54 learning about relief for back pain abux Not available 03/07/2024 16:17:54 Reason for Referral None Reported. Problems Name Problem SNOMED Code Status Onset Date Resolution Date Notes Provider Name and Address Organization Details Recorded Time Radiculopat hy due to lumbar interverteb ral disc disorder 4482939610391 05 Active 2023 KATIE GARAY null, [place] [facility] 09:47:58 Lumbar radiculopat 272912344 Active 2023 Benja Hinojosa MD [address] [facility],[place] [address], [place], [address], [place] [facility] 16:17:48 Degeneratio n of lumbar interverteb ral disc 52586869 Active 2023 Benja Hinojosa MD [address] ,[place] [address], [place], [address], [place] [facility] 16:17:49 Problem Notes None recorded. Procedures Surgical History Date Name Laterality Status Provider Name and Address Organization Details Recorded Time 03/07/20 Pump Refill completed Benja Hinojosa MD [address] [facility],[place] [address], [place], [address], [place] [facility] 03/07/2024 16:15:37 Back Surgery completed MAXIMO PRIETOS [place] [facility] 03/07/2024 14:16:36 tonsillectomy completed MAXIMO STERLING [place] [facility] 03/07/2024 14:16:43 endoscopic surgical procedure on colon and rectum using laser completed MAXIMO STERLING [place] [facility] 03/07/2024 14:17:00 section completed MAXIMO PRIETOS [place] [facility] 03/07/2024 14:17:09 [...] % 96 % 165.1 cm 27.1 kg/m2 10474.5 6 g 136 mm[Hg] 78 mm[Hg] MAXIMO STERLING [place] [facility] 14:18:44 Social History Question Answer Notes LastModified by [employer] Details LastModified Time Tobacco Smoking Status Current Every Day Smoker MAXIMO STERLING null, [place] [facility] 03/07/2024 14:13:48 In The 14 Days Before Symptom Onset, Have You Had Close Contact With A Laboratory-confirm ed COVID-19 While That Case Was Ill? No [email or web address] Information n ot available 03/07/2024 In The 14 Days Before Symptom Onset, Have You Had Close Contact With A Person Who Is Under Investigation For COVID-19 While That Person Was Ill? No [email or web address] Information not available 03/07/2024 Have You Been To An Area Known To Be High Risk For COVID-19? No [email or web address] Information not available 03/07/2024 Sex: Female Functional Status Question Answer Note LastModified by [employer] Details LastModified Time Do you use any illicit or recreational drugs? No [email or web address] Information not available 03/07/2024 Do you or have you ever used any other forms of tobacco or nicotine? No [email or web address] Information not available 03/07/2024 What is your level of alcohol consumption? None [email or web address] Information not available 03/07/2024 Mental Status None recorded. Family History Nothing Reported. Medical History Condition Response Coronary Artery Disease N Gout N Hernia N Head Trauma/Injury N Thyroid Problems Y Depression N COPD Y Anemia N Heart Attack (OK) N Ulcers N Diabetes Y Anxiety Disorder N Bleeding Disorder N Arthritis N Tuberculosis N AIDS/HIV N Acid Reflux (GERD) N Cancer N Stroke N Asthma Y Substance Abuse N Back Injury N High Cholesterol Y Hepatitis N Liver Disease N Heart Disease N Headaches N Fibromyalgia N Hypertension Y Osteoporosis N Kidney Disease N Gynecological HistoryNo gynecological history recorded. Obstetrics History GPAL:G 0 P 0 0 0 0 Past Encounters Encounter ID Performer Location Encounter Start Date Encounter Closed Date Diagnosis/Indication Diagnosis SNOMED-CT Code Diagnosis ICD10 Code Diagnosis Note [id number] Benja Hinojosa MD [address] [place] [address] 03/07/2024 14:10:22 03/08/2024 06:43:58 Radiculopathy due to lumbar intervertebral disc disorder 0054492456 93224 M51.16 Degenerati on of lumbar intervertebral disc 25744395 M51.36 Lumbar radiculopathy 128 529566 M54.16 Lumbar spondylosis 73133 0009 M47.896 Health Concerns Section Related Observation LastModified by Organization Detai ls LastModified Time None Recorded Concern Status LastModified by Organization Details LastModified Time None Recorded Advance Directives Directive None Recorded Payers Insurance Date Sequence Insurance Name Policy Number Policy Lopez Covered Member ID Lopez Member ID Guarantor Name 03/26/2024 2 [facility] (MEDICAID O) Sindy K Charli [id number] Sindy K Wendy 10/11/2024 1 [employer] (MEDICARE REPLACEMENT/ ADVANTAGE - PPO) Sindy K Wendy [id number] Sindy K Wendy 04/20/2024 2 [place] Sindy K Wendy [id number] Sindy K Wendy 12/02/2024 2 [place] [facility] [place] [place] FFS/TRADITIO NAL Sindy K Wendy [id number] Sindy K Wendy 04/05/2024 PAYMENT PLAN Sindy K Wendy 12/02/2024 1 [employer] (MEDICARE REPLACEMENT/ ADVANTAGE - HMO) Sindy K Wendy [id number] Sindy K Wendy Notes Date Note Type [...] surgery/procedure date: Benja Hinojosa MD [address], [address], [place] [facility] 03/07/2024 16:18:24 OBGyn Episode No OBEpisode recorded.
--- OUTSIDE RECORDS SUMMARY | 2025-03-15 13:02 | XMS_ITS | Data Portability ---
Author Organization [facility] Clindeann c, [facility] [place] [facility] Address [address] [place] [address] Assessment No assessment recorded. Plan of Treatment [...] Recorded Time 07/02/20 18 Urodynamics Interpretation completed [facility] 07/02/2018 12:18:08 07/02/20 18 Urodynamics completed [facility] 07/02/2018 12:25:46 Tonsillectomy completed [facility] 07/02/2018 12:12:59 section completed [facility] 07/02/2018 12:13:17 Cholecystectomy completed [facility] 07/02/2018 12:13:31 Urinary Bladder completed [facility] 07/02/2018 12:13:50 Total Hysterectomy completed [facility] 07/02/2018 12:14:35 partial resection of colon completed [facility] 07/02/2018 12:15:24 colonoscopy completed [facility] 07/02/2018 12:15:35 Imaging Results None recorded. Procedure Notes None recorded. Medical Equipment None Reported. Allergies Allergen ID Allergen Name Allergen Category Reaction Reaction Severity Criticality Documentation Date Start Date Code Code System Note Provider Name and Address Organization Details Recorded Time 915935 ciproflox acin medicatio n Not available Not available Not available 06/02/2018 2551 [facility] 17:22[facility]47 768174 aripipraz ole medicatio n Not available Not available Not available 06/02/2018 59510 [facility] 17:23:04 744881 phenazopy ridine medicatio n Not available Not available Not available 06/02/2018 8120 [facility] 17:23:15 Medications Name Sig Start Date [...] Updated DateTime 07/02/2018 165.1 cm 32.1 kg/m2 97012.33 g Manda Horta [facility] 07/02/2018 12:10:38 Social History Question Answer Notes LastModified by Organizat ion Details LastModified Time Tobacco Smoking Status Current Every Day Smoker 1/2 pack/day Manda Horta [facility] 07/02/2018 12:12:31 Marital Status Information not available [...] available 2017 12:12:02 Medical History Condition Response Anxiety Disorder Y Allergies/Hayfever Y False Teeth Y Arthritis Y Chronic Obstructive Pulmonary Disease Y Kidney Stones Y Acid Reflux (GERD) Y Depression Y Asthma Y Sleep Apnea Y High Cholesterol Y Thyroid Disorder Y Gynecological HistoryNo gynecological history recorded. Obstetrics History GPAL:G 0 P 0 0 0 0 Past Encounters Encounter ID Performer Location Encounter Start Date Encounter Closed Date Diagnosis/Indication Diagnosis SNOMED-CT Code Diagnosis ICD10 Code Diagnosis Note [id number] CHINTAN PRICE MD [facility] [address] [facility] [place] [address] 07/02/2018 10:02:51 07/02/2018 11:02:09 Urge incontinence of urine 03098237 N39.41 Health Concerns Section Related Observation LastModified by Organization Detai ls LastModified Time None Recorded Concern Status LastModified by Organization Details LastModified Time None Recorded Advance Directives Directive None Recorded Payers Insurance Date Sequence Insurance Name Policy Number Policy Lopez Covered Member ID Lopez Member ID Guarantor Name 05/06/2021 2 [email or web address] (MEDICAID REPLACEMENT - HMO) MEDICAID Sindy Augustin [id number] Sindy Augustin 05/06/2021 1 [place] Sindy Augustin [id number] Sindy Augustin OBGyn Episode No OBEpisode recorded.
[2025-03-15 13:11] VITALS: BMI 30.4
[2025-03-15 13:28] LABS: Hematocrit 44.6 % (37.0-47.0); Hemoglobin 13.8 g/dL (12.2-16.2); Immature Granulocytes % 0.7 %; Mean Corpuscular HGB Conc 30.9 g/dL (31.8-35.4); Mean Corpuscular Hemoglobin 30.2 pg (27.0-31.2); Mean Corpuscular Volume 97.6 fl (81-99); Nucleated Red Blood Cells % 0 %; Platelet Count 375 K/mm3 (142-424); Red Blood Count 4.57 M/mm3 (4.20-5.40); Red Cell Distribution Width-SD 48.5 fL; White Blood Count 12.8 K/mm3 (4.8-10.8)
[2025-03-15 13:36] LABS: Chloride 97 mmol/L (98-107); Potassium 4.5 mmoL/L (3.5-5.1); Sodium 138 mmol/L (136-145)
[2025-03-15 13:39] LABS: Anion Gap 15.5 mEq/L (5-15); Blood Urea Nitrogen 18 mg/dl (7-17); Calcium 9.3 mg/dl (8.4-10.2); Carbon Dioxide 30 mmol/L (22.0-30.0); Creatinine Clearance Estimated 61 mL/min (50-200); Creatinine,Serum 0.90 mg/dl (0.52-1.04); Estimated Glomerular Filt Rate 61 ml/min (>60); GFR (African American) 73 ML/MIN (>60); Glucose 137 mg/dl (74-100)
== END 2025-03-15 23:59 | disposition home or self-care (01) ==
LOC: PREOP 12:58
PROVIDERS: PCP Nurse Practitioner Family; Visit Provider Anesthesiology
DX: Z01.812 Encounter for preprocedural laboratory examination (principal)
CPT/HCPCS: 80048; 85025

== ENCOUNTER → 2025-03-24 07:28 | Day surgery (SDC) | payer MEDICARE, MEDICAID, SELFPAY ==
[2025-03-16 14:17] VITALS: BMI 30.4
[2025-03-24 07:52] VITALS: BP 134/113; PULSE 86; RESP 18; TEMP 36.1; O2SAT 94
[2025-03-24 08:08] LABS: POC Glucose,Bedside 130 (70-110)
[2025-03-24] MEDS: LIDOCAINE 1% W/EPI 1:100,000 20ML VIAL 40 ML (08:09)
--- NOTE | 2025-03-24 08:55 | EXP.ANES.CKL ---
[facility] Disclaimer: The information contained in this section may have been updated after the patient was seen, as this information can be updated by other users. Medical History CAD (coronary artery disease) Encounter for pre-operative cardiovascular clearance Asthma COPD mixed type Pulmonary emphysema Encounter for screening for malignant neoplasm of lung Smoking greater than 30 pack years Oxygen dependent Nephrolithiasis History of left heart catheterization Smoker Hypothyroid Tobacco abuse COPD (chronic obstructive pulmonary disease) Nonspecific ST-T changes Tachycardia Diabetes HLD (hyperlipidemia) SOB (shortness of breath) Angina, class IV Surgical History History of surgery History of surgical removal of skin lesion History of spinal surgery History of tonsillectomy History of colon surgery History of section History of bladder surgery Family History Other Family history of cancer Family history of diabetes mellitus Family history of heart disease Social History Smoking Status: Current every day smoker tobacco type: cigarettes packs per day: 1 second hand exposure: Yes alcohol intake: never counseling provided: provider counseling substance use type: denies use current occupational status: retired Travel in the last 8 weeks?: None household members: children housing: house current occupational exposures/hazards: No caffeine: No Have you lived/traveled outside US in past 30 days?: No Contact w/someone who lives/traveled outside US past 30 days?: No Exposure to someone with infectious disease in past 14 days?: No Do you have a fever (greater than 100.4 F or 38 C)?: No Have you tested positive for COVID-19?: No Exposed to someone with COVID-19 in past 14 days?: No Do you have a sore throat?: No Do you have a cough?: No Do you have any weakness?: No Do you have any diarrhea?: No Are you experiencing any unusual bleeding?: No Do you have any muscle aches/pain?: No Do you have any abdominal pain?: No Are you experiencing loss of taste or smell?: No [facility] Anesthesia Checklist Patient Identification Patient Identification: Arm Band Structural Data Admitted From: Home Planned Operative Procedure/s: Pain Pump Explant Consent for Planned Operative Procedure(s) Verified: Yes Verified Documents: Surgical Consent and History and Physical NPO Status Verified Time NPO: 00:00 Additional verifications Anesthesia Reactions: No Hx Blood Transfusions: No Blood Transfusion Reaction: No Airway Assessment Mallampati Score:: Class II C-Spine Mobility Assessed: Yes TMJ Mobility Assessed: Yes Dentition: Edentulous Neurological Assessment Level of Consciousness: Awake, Alert and Appropriate Anesthesia Plan Anesthesia Risk discussed: Yes Anesthesia Plan: Verified ASA Class: III Anesthesia Type: MAC
[2025-03-24 09:00] VITALS: BP 112/68; PULSE 78; RESP 16; TEMP 36.2; O2SAT 91
[2025-03-24 09:10] VITALS: BP 114/62; PULSE 75; RESP 16; TEMP 36.2; O2SAT 93
--- NOTE | 2025-03-24 09:13 | EXP.OP.NOTE ---
Date of procedure: 03/24/25 Pre-op Diagnosis:: Nonfunctioning pain pump system with painful pain pump generator Post-op Diagnosis:: Same Procedure performed:: Explant pain pump generator Surgeon:: Benja Hinojosa MD PERIOPERATIVE ASSISTANT:: Igor Soot Anesthesia: MAC Estimated blood loss (mL): 5 Clinical Note:: This patient is a pleasant 79-year-old white female who we are treating for degenerative disease of lumbar spine with lumbar colopathy symptoms. She has a nonfunctioning intrathecal pain pump system. Her pain pump is not helping her. Is currently been off. She has increasing pain around the pain pump generator. She has had some recent falls which is aggravated her pain in her back especially around the generator. We will explant her pain pump generator today. Given her significant comorbidities and end-stage COPD with recent pneumonia we will leave her intrathecal catheter in place and tied off and just explant the generator. Operative findings:: None Operative note:: Informed consent was obtained risk and benefits of the procedure were explained to the patient. The patient was taken the operating room placed in a left lateral decubitus position. The skin and subcutaneous tissues overlying the pain pump generator were anesthetized using lidocaine. I made an incision dissected out the pain pump generator. I disconnected the catheter. I tied it off with 0 silk ties x 3. The pocket was then irrigated antibiotic solution. It was then closed with 2-0 Vicryl followed by 4-0 nylon and dae. The patient was taken recovery in stable condition. The patient tolerated the procedure well with no complications. Condition: stable Disposition: PACU Complications:: None
[2025-03-24 09:20] VITALS: BP 113/61; PULSE 73; RESP 17; TEMP 36.2; O2SAT 94
[2025-03-24 09:30] VITALS: BP 129/75; PULSE 72; RESP 17; TEMP 36.2; O2SAT 92
--- NOTE | 2025-03-24 15:57 | EXP.HP ---
[facility] Disclaimer: The information contained in this section may have been updated after the patient was seen, as this information can be updated by other users. Medical History CAD (coronary artery disease) Encounter for pre-operative cardiovascular clearance Asthma COPD mixed type Pulmonary emphysema Encounter for screening for malignant neoplasm of lung Smoking greater than 30 pack years Oxygen dependent Nephrolithiasis History of left heart catheterization Smoker Hypothyroid Tobacco abuse COPD (chronic obstructive pulmonary disease) Nonspecific ST-T changes Tachycardia Diabetes HLD (hyperlipidemia) SOB (shortness of breath) Angina, class IV Surgical History History of surgery pain pump placement History of surgical removal of skin lesion History of spinal surgery History of tonsillectomy History of colon surgery History of section History of bladder surgery Family History Other Family history of cancer Family history of diabetes mellitus Family history of heart disease Social History Smoking Status: Current every day smoker tobacco type: cigarettes packs per day: 1 second hand exposure: Yes alcohol intake: never counseling provided: provider counseling substance use type: denies use current occupational status: other Travel in the last 8 weeks?: None household members: children housing: house current occupational exposures/hazards: No caffeine: No Other Medical History Have you received the Flu Vaccine for this season: Yes Have you received the Pneumonia Vaccine: Yes Review of Systems Review of Systems Review of systems:: pertinent systems reviewed and negative unless documented below Meds Home Medications and Allergies Home Medications ?Medication ?Instructions ?Recorded ?Confirmed ?Type alprazolam 1 mg tablet 1 mg PO TIDP PRN Anxiety 08/24/18 04/13/25 History omeprazole 40 mg capsule,delayed 40 mg PO BID Reflux/Acid reflux 08/24/18 04/13/25 History release levalbuterol tartrate 45 2 puff inhalation Q4H Breathing 02/07/19 04/13/25 History mcg/actuation aerosol inhaler problems milnacipran 100 mg tablet 100 mg PO BID FIBROMYALGIA 02/07/19 04/13/25 History rosuvastatin 20 mg tablet 20 mg PO HS Cholesterol 02/08/19 04/13/25 History levocetirizine 5 mg tablet 5 mg PO HS Allergy symptoms 10/11/20 04/13/25 History metformin 500 mg tablet,extended 500 mg PO DAILY Diabetes 12/18/20 04/13/25 History release 24 hr sitagliptin phosphate 100 mg tablet 100 mg PO DAILY Diabetes 12/18/20 04/13/25 History aspirin 81 mg tablet,delayed 81 mg PO DAILY HEART HEALTH 04/11/21 04/13/25 History release ergocalciferol (vitamin D2) 1,250 50,000 units PO WEEKLY Supplement 02/20/22 04/13/25 History mcg (50,000 unit) capsule metoprolol succinate 50 mg 50 mg PO DAILY High blood pressure 03/31/22 04/13/25 History tablet,extended release 24 hr furosemide 40 mg tablet 40 mg PO DAILYP PRN Fluid 10/30/22 04/13/25 History potassium chloride 10 mEq 10 meq PO BID Supplement 01/22/23 04/13/25 History tablet,extended release levalbuterol HCl 0.63 mg/3 mL 0.63 mg inhalation . PRN . 09/23/23 04/13/25 History solution for nebulization linaclotide 72 mcg capsule 72 mcg PO DAILY PRN IBS 09/23/23 04/13/25 History (Linzess) duloxetine 30 mg capsule,delayed 30 mg PO BID 12/24/23 04/13/25 History release diclofenac sodium 1 % topical gel 2 g topical QID #100 grams 12/28/23 04/13/25 Rx albuterol sulfate 90 mcg/actuation 2 inh inhalation Q6H PRN shortness 02/16/24 04/13/25 Rx aerosol inhaler (Ventolin HFA) of breath or wheezing 90 days #18 grams baclofen 10 mg tablet 10 mg PO HS #14 tabs 02/17/24 04/13/25 Rx tramadol 50 mg tablet 50 mg PO BID PRN pain #60 tabs 09/30/24 04/13/25 Rx gabapentin 300 mg capsule 600 mg PO HS neuropathy 01/24/25 04/13/25 History levothyroxine 100 mcg tablet 100 mcg PO DAILY 02/23/25 04/13/25 History acetaminophen 300 mg-codeine 30 mg 1 tab PO BID PRN pain #60 tabs 04/13/25 Rx tablet New Prescriptions to Start Prescriptions: Allergies Allergy/AdvReac Type Severity Reaction Status Date / Time aripiprazole (From ABILIFY) Allergy Unknown Unknown Verified 03/29/25 13:03 allergy reaction ciprofloxacin (CIPROFLOXACIN) Allergy Unknown Unknown Verified 03/29/25 13:03 allergy reaction phenazopyridine Allergy Unknown Unknown Verified 03/29/25 13:03 (PHENAZOPYRIDINE) allergy reaction Exam Data for Last 24 hours Vital signs and Labs for Last 24 Hours: Temp Pulse Resp BP Pulse Ox O2 Del Method O2 Flow Rate 97.2 F L 72 17 129/75 92 L Room Air 1 03/24/25 09:30 03/24/25 09:30 03/24/25 09:30 03/24/25 09:30 03/24/25 09:30 03/24/25 09:30 03/24/25 09:20 Laboratory Results - last 24 hr 03/24/25 07:54: POC Glucose 130 H Constitutional Constitutional: no acute distress *Routine HEENT Exam Head: Present normocephalic Eye: Present EOMI and PERRL ENT: Present mucous membranes moist *Routine Neck Exam Neck: Present supple; Absent lymphadenopathy *Routine Respiratory Exam Respiratory: Present CTA bilaterally *Routine Cardiovascular Exam Cardiovascular: Present RRR *Routine Abdominal Exam Abdominal: Present soft and normoactive bowel sounds; Absent tenderness *Routine Rectal Exam Rectal:: deferred *Routine Genitalia Exam Genitalia:: deferred *Routine Extremities Exam Extremities: Absent cyanosis, clubbing or edema *Routine Skin Exam Skin: Present warm; Absent rash *Routine Neurological Exam Neurological: Present alert and oriented X3
== END | disposition home or self-care (01) ==
PROVIDERS: PCP Nurse Practitioner Family; Visit Provider Anesthesiology
PROC: (CPT 62365; principal; 2025-03-24 08:50)
DX: T85.840A Pain due to nervous system prosthetic devices, implants and grafts, initial encounter (principal); M51.369 Other intervertebral disc degeneration, lumbar region without mention of lumbar back pain or lower extremity pain; E78.5 Hyperlipidemia, unspecified; J44.89 Other specified chronic obstructive pulmonary disease; E03.9 Hypothyroidism, unspecified; I25.10 Atherosclerotic heart disease of native coronary artery without angina pectoris; F17.210 Nicotine dependence, cigarettes, uncomplicated; Z79.82 Long term (current) use of aspirin; Z88.1 Allergy status to other antibiotic agents; Z88.6 Allergy status to analgesic agent; Z88.8 Allergy status to other drugs, medicaments and biological substances; Y80.1 Therapeutic (nonsurgical) and rehabilitative physical medicine devices associated with adverse incidents
CPT/HCPCS: 62365; 82962; 96374; 99221; J2003; J2004; J2704

== ENCOUNTER 2025-03-29 10:50 | Outpatient (POV) | payer MEDICARE, MEDICAID, SELFPAY ==
--- OUTSIDE RECORDS SUMMARY | 2025-03-06 10:30 | XMS_ITS ---
Author Organization [facility] Address [address] [facility] [address] [place] [address] Care Team Providers Care Industrial Gas Servicer Name Role Phone Claire Ramirez Primary Care Provider [phone] Delvin Newton Unavailable Unavailable Allergies Allergen (clinical [...] 03/18/2023 Active Vitamin D (Ergocalciferol) 1.25 MG (10484 UT) 1 cap(s) orally once a week; Duration: 30 day(s) Active Trelegy Ellipta 100 MCG-62.5 MCG-25 MCG/INH 1 PUFF(S) INHALED ONCE A DAY; Duration: 30 DAYS *Please review and pick correct strength-formulati on from [employer] options. If intended option is not shown, discontinue and re-order from Quick Search* 08/24/2023 Active POTASSIUM CHLORIDE (TRQ-GORX-SVQ 10) 10 MEQ TAKE ONE TABLET BY [...] review and pick correct strength-formulati on from [employer] options. If intended option is not shown, [...] review and pick correct strength-formulati on from [employer] options. If intended option is not shown, [...] 03/06/2025 Encounters Encounter Location Date Provider Diagnosis [facility] [address] [facility] [address] [place], [place] [address] 03/06/2025 Claire Ramirez Fall from standing, subsequent [...] take half a tablet along with 1 cjqm-wqg-cjlppsc acetaminophen every 6 hours as needed for [...] [address], [address], [place], [address], Progress Notes * Andrés LEMAaDOB: 7 (79 yo F)Acc No.[id number]:03/06/2025 Progress Notes Patient: Sindy SWARTZ Provider: SLAVA Grimaldo :1945 A ge:79 Y S ex:Female Date:03/06/2025 Address:[address] [place] [address], [id number] Subjective: * Chief Complaints: * [...] She was advised to treat conservatively with ohlf-ffy-fiagylu analgesics, ice. She saw orthopedics today and [...] *Please review and pick correct strength-formulation from [employer] options. If intended option is not shown, [...] check*, Taking Vitamin D (Ergocalciferol) 1.25 MG (17529 UT) Capsule 1 cap(s) orally once a week , Taking POTASSIUM CHLORIDE (NZE-EYZE-AAZ 10) 10 MEQ TABLET, EXTENDED RELEASE TAKE [...] *Please review and pick correct strength-formulation from [employer] options. If intended option is not shown, [...] *Please review and pick correct strength-formulation from [employer] options. If intended option is not shown, [...] Date: 03/06/2025 Generated for Honey aquino/Francisco/Gary on: 0 03/29/2025 11:02 AM EDT History and Physical Notes * Examination [...]
--- NOTE | 2025-03-29 10:56 | XR_ITS ---
FINAL REPORT CLINICAL HISTORY: Left wrist fx COMPARISON: 03/01/2025 FINDINGS: LEFT WRIST FINDINGS: Four views show deformity of the distal radius compatible with old fracture. There is no residual fracture line seen. Osteopenia is noted. There are healing fractures of the 3rd, 4th, and 5th metacarpal bases. There is a small chip fracture of the medial 5th metacarpal base. IMPRESSION: Healing nondisplaced 3rd through 5th metacarpal fractures. Old healed distal radius fracture. Reviewed, Interpreted and Dictated by Ender Thomas MD Transcribed by Shalonda Jameson Authenticated and [facility]
--- OUTSIDE RECORDS SUMMARY | 2025-03-29 11:01 | XMS_ITS | Encounter Summary ---
Author Organization [employer] ([place], [place], [place], [place]) Address [address] [place] [address] Care Team Providers Care Proof Carrier Name Role Phone Unavailable Primary Care Provider Unavailabl e Encounter Details Date Type Department Care Team (Late st Contact Info) Description 04/15/2021 Transcribed Document [facility] [place] Family Medicine [address] [place] [address] ProviderPantera MD [address] [place] [address] Social History Tobacco Use Types Packs/Day Years Used Date Smoking Tobacco: Never Assessed Comments Unknown Sex and Gender Information Value Date Recorded Sex Assigned at Not on file Legal Sex Female 7:22 PM CDT Gender Identity Not on file Sexual Orientation Not on file documented as of this encounter Miscellaneous Notes * Cerner Conversion Note - Pantera Tineo MD - 04/15/2021 12:43 AM CDT Pain Assessment [...]
--- OUTSIDE RECORDS SUMMARY | 2025-03-29 11:01 | XMS_ITS | Encounter Summary ---
Author Organization [employer] ([place], [place], [place], [place]) Address [address] [place] [address] Care Team Providers Care Tawer Name Role Phone Unavailable Primary Care Provider Unavailabl e Encounter Details Date Type Department Care Team (Late st Contact Info) Description 04/15/2021 Transcribed Document [facility] [place] Family Medicine [address] [place] [address] ProviderPantera MD [address] [place] [address] Social History Tobacco Use Types [...] Celeste Trujillo RN - 04/15/2021 18:25 EDT Electronically signed by Major [facility] Conversion Video Tape Transferrer Cerner at 01/02/2023 6:23 PM CDT documented in this encounter Plan of Treatment Not on file documented as of this encounter Visit Diagnoses Not on filedocumented in this encounter
--- OUTSIDE RECORDS SUMMARY | 2025-03-29 11:01 | XMS_ITS | Encounter Summary ---
Author Organization [employer] ([place], [place], [place], [place]) Address [address] [place] [address] Care Team Providers Care Horticultural Farmworker Name Role Phone Unavailable Primary Care Provider Unavailabl e Encounter Details Date Type Department Care Team (Late st Contact Info) Description 04/15/2021 Transcribed Document [facility] [place] [address] [place] [address] ProviderPantera MD [address] [place] [address] Social History Tobacco Use Types Packs/Day Years Used Date Smoking Tobacco: Never Assessed Comments Unknown Sex and Gender Information Value Date Recorded Sex Assigned at Not on file Legal Sex Female 7:22 PM CDT Gender Identity Not on file Sexual Orientation Not on file documented as of this encounter Miscellaneous Notes * Cerner Conversion Note - Pantera ProviderMD - 04/15/2021 12:50 PM CDT [facility] Endo IntraOp Summary Primary Physician: NIKHIL RINCON MD Finalized Date/Time: 04/15/21 13:26:28 Pt. Name: SINDY NGUYENO.B./Sex: 1945 Female Med Rec #: [id number] Physician: RODRIGO BASURTO DO-INT Financial #: [id number] Pt. Type: I Room/Bed: [facility] Admit/Disch: 04/14/21 23:14:00 - Institution: [facility] Endo - Case Attendance Entry 1 Entry 2 Entry 3 Case Attendee NIKHIL RINCON MD CELLAROSI-TYLER AN Springate, Samantha RN -ANS Role Performed Surgeon/Proceduralist, Anesthesiologist News Internship, First First Time In 04/15/21 12:42:00 04/15/21 12:33:00 04/15/21 12:33:00 Time Out 04/15/21 13:28:00 04/15/21 12:51:00 04/15/21 13:28:00 Procedure Esophagogastroduodenosco Esophagogastroduodenosco Esophagogastroduodenosco py, Colonoscopy, py, Colonoscopy, py, Colonoscopy, Duodenal Biopsy, Duodenal Biopsy, Duodenal Biopsy, Gastric Biopsy, Colon Gastric Biopsy, Colon Gastric Biopsy, Colon Biopsy Biopsy Biopsy Other Attendee Superficial Wound Closed By: Last Modified By: Christine Urena, Christine Robbins RN Springate, Samantha, RN 04/15/21 13:25:50 04/15/21 [...] Wound Closed By: Last Modified By: Christine Urena, Christine Robbins RN 04/15/21 13:25:50 04/15/21 13:25:50 [facility] Endo - Case Attendance Audit 04/15/21 13:25:50 Warp Drawer: [id number] Modifier: [id number] 1 <+> Time Out 1 <*> Procedure [...] Biopsy, Gastric Biopsy, Colon Biopsy 04/15/21 13:19:13 Warp Drawer: [id number] Modifier: [id number] 1 <*> Procedure Esophagogastroduodenoscopy, Colonoscopy, Duodenal Biopsy, Gastric Biopsy 2 <*> Procedure Esophagogastroduodenoscopy, Colonoscopy, Duodenal Biopsy, Gastric Biopsy 3 <*> Procedure Esophagogastroduodenoscopy, Colonoscopy, Duodenal Biopsy, Gastric Biopsy 4 <*> Procedure Esophagogastroduodenoscopy, Colonoscopy, Duodenal Biopsy, Gastric Biopsy 5 <*> Procedure Esophagogastroduodenoscopy, Colonoscopy, Duodenal Biopsy, Gastric Biopsy 04/15/21 12:54:09 Warp Drawer: [id number] Modifier: [id number] 1 <*> Procedure Esophagogastroduodenoscopy, Colonoscopy 2 <*> Procedure Esophagogastroduodenoscopy, Colonoscopy 3 <*> Procedure Esophagogastroduodenoscopy, Colonoscopy 4 <*> Procedure Esophagogastroduodenoscopy, Colonoscopy 5 <*> Procedure Esophagogastroduodenoscopy, Colonoscopy 04/15/21 12:51:35 Warp Drawer: [id number] Modifier: [id number] <+> Time Out 2 <*> Procedure Esophagogastroduodenoscopy, Colonoscopy 04/15/21 12:51:14 Warp Drawer: [id number] Modifier: [id number] <+> 5 Case Attendee <+> 5 Role Performed <+> 5 Time In <+> 5 Procedure 04/15/21 12:42:43 Warp Drawer: [id number] Modifier: [id number] 1 <*> Time In 04/15/21 12:33:00 1 <*> Procedure Esophagogastroduodenoscopy, Colonoscopy <+> 2 Procedure <+> 3 Procedure <+> 4 Procedure 04/15/21 12:40:59 Warp Drawer: [id number] Modifier: [id number] 1 <*> Procedure Esophagogastroduodenoscopy, Colonoscopy <+> 2 Time In <+> 3 Time In <+> 4 Time In 04/15/21 12:35:05 Warp Drawer: [id number] Modifier: [id number] 1 <+> Time In 1 <*> Procedure Esophagogastroduodenoscopy, Colonoscopy <+> 2 Case Attendee <+> 2 Role Performed <+> 3 Case Attendee <+> 3 Role Performed <+> 4 Case Attendee <+> 4 Role Performed [facility] Endo - Case times Entry 1 Patient In Room Time 04/15/21 12:33:00 Out Room Time 04/15/21 13:28:00 Anesthesia Start Time 04/15/21 12:33:00 Stop Time 04/15/21 13:28:00 Surgery / Procedure Times Start Time 04/15/21 12:50:00 Stop Time 04/15/21 13:25:00 Last Modified By: Christine Urena RN 04/15/21 13:25:49 [facility] Endo - Case times Audit 04/15/21 13:25:49 Warp Drawer: [id number] Modifier: [id number] <+> 1 Out Room Time <+> 1 Stop Time <+> 1 Stop Time 04/15/21 12:50:27 Warp Drawer: [id number] Modifier: [id number] <+> 1 Start Time [facility] Endo - Cultures and Spec Summary Entry 1 Cultrures and Specimens Specimen Ordered: Yes Test(s) Routine/Path-Lab Requested/Final Disposition Last Modified By: Christine Urena RN 04/15/21 12:54:15 [facility] Endo - Delays Entry 1 Delay Reason Other Duration 0 Minute(s) Last Modified By: Christine Urena RN 04/15/21 12:35:09 [facility] Endo - Departure from OR Entry 1 Integumentary Assessment Integumentary WDL Assessment WDL Transfer/Handoff Transfer to PACU Phase I Post-op Transport Stretcher/Gurney Via Patient Transport Christine Urena, Accompanied by RNELDA MARIA, MD-ANS Last Modified By: Christine Urena RN 04/15/21 12:35:17 [facility] Endo - Endoscopy Details Entry 1 Abdomen Procedure Soft, Non-Tender Assessment Procedure Abdomen 04/15/21 12:33:00 Assessment D/T Radio Frequency Ablation Abdominal Pressure Last Modified By: Christine Urena RN 04/15/21 12:35:25 [facility] Endo - Fire Risk Assessment Entry [...] Modified By: Christine Urena RN 04/15/21 12:35:31 [facility] Endo - General Case [place] Operator 1 Case Information OR Endo 03 [facility] Case Level 1 Room Verified Yes Wound Class III - Contaminated Specialty Gastroenterology Anesthesia Type MAC ASA Class 4 Diagnosis Preop Diagnosis GI Bleed/Diarrhea Postop Same As Preop No Postop Diagnosis gastritis Last Modified By: Christine Urena RN 04/15/21 12:55:07 [facility] Endo - General Case Data Audit 04/15/21 12:55:07 Warp Drawer: [id number] Modifier: [id number] 1 <+> Postop Same As Preop 1 <*> Preop Diagnosis GI Bleed 1 <+> Postop Diagnosis [facility] Endo - Intraoperative Assessment Entry 1 Valid History / Yes Physical in Chart Preoperative Yes Checklist Reviewed/Evaluated Patient is Latex No Sensitive Level of WDL Consciousness (WDL = Alert, Oriented to Person, Place, and Time) Last Modified By: Christine Urena RN 04/15/21 12:40:25 [facility] Endo - Intraoperative Equipment Entry 1 Equipment Intraop Monitoring Electrocardiogram Three lead placement (ECG) Electrode Placement Blood Pressure Arm, left upper Location Pulse Oximeter Hand, right Probe Site Antiembolic Devices Scopes Flexible Endoscopes Gastroscope, Used Colonoscope, Peds Scope Serial D, N Number/Identificatio n Number Photo/Video Documentation Photo Yes Video No Last Modified By: Christine Urena RN 04/15/21 12:40:39 [facility] Endo - Patient Positioning Entry 1 [...] Modified By: Christine Urena RN 04/15/21 13:19:14 [facility] Endo - Patient Positioning Audit 04/15/21 13:19:14 Warp Drawer: [id number] Modifier: [id number] 1 <*> Procedure Esophagogastroduodenoscopy, Duodenal Biopsy, Gastric Biopsy 04/15/21 12:54:10 Warp Drawer: [id number] Modifier: [id number] 1 <*> Procedure Esophagogastroduodenoscopy [facility] Endo - Sign In Entry 1 Patient, Site, Yes Procedure Identified Surgical Consent Yes Confirmed Surgical Site N/A Marked by person performing procedure Airway Hypothermia Risk No Warming Measures No Taken Last Modified By: Christine Urena RN 04/15/21 12:40:56 [facility] Endo - Sign Out Entry 1 [...] Modified By: Christine Urena RN 04/15/21 13:26:19 [facility] Endo - Surgical Procedures Entry 1 [...] States 04/15/21 13:16:00 Cecum Reached Anesthesia Type [facility] Specialty Gastroenterology Gastroenterology Wound Class II - Clean-Contaminated III - Contaminated Last Modified By: Christine Urena RN Springate, Samantha, RN 04/15/21 13:26:09 04/15/21 13:26:09 [facility] Endo - Surgical Procedures Audit 04/15/21 13:26:09 Warp Drawer: [id number] Modifier: [id number] <+> 2 Stop <+> 3 Stop <+> 4 Stop <+> 5 Stop 04/15/21 13:21:39 Warp Drawer: [id number] Modifier: [id number] 5 <*> Procedure Colon Biopsy 5 <*> Additional Procedure Description Right colon bx 04/15/21 13:19:10 Warp Drawer: [id number] Modifier: [id number] 2 <*> Procedure Colonoscopy 2 <+> Physician States Cecum Reached <+> 5 Procedure <+> 5 Primary Procedure <+> 5 Primary Surgeon <+> 5 Specialty <+> 5 Start <+> 5 Wound Class <+> 5 Anesthesia Type <+> 5 Additional Procedure Description <+> 5 Physician States Cecum Reached 04/15/21 13:08:07 Warp Drawer: [id number] Modifier: [id number] 1 <*> Procedure Esophagogastroduodenoscopy 1 <+> Stop 2 <*> Procedure Colonoscopy 2 <*> Start 04/15/21 12:50:00 04/15/21 12:54:05 Warp Drawer: [id number] Modifier: [id number] <+> 3 Procedure <+> 3 Primary Procedure <+> 3 Primary Surgeon <+> 3 Specialty <+> 3 Start <+> 3 Wound Class <+> 3 Anesthesia Type <+> 4 Procedure <+> 4 Primary Procedure <+> 4 Primary Surgeon <+> 4 Specialty <+> 4 Start <+> 4 Wound Class <+> 4 Anesthesia Type 04/15/21 12:51:27 Warp Drawer: [id number] Modifier: [id number] <+> 1 Start <+> 2 Start 04/15/21 12:41:16 Warp Drawer: [id number] Modifier: [id number] 1 <*> Procedure Esophagogastroduodenoscopy 1 <+> Specialty 2 <*> Procedure Colonoscopy 2 <+> Specialty [facility] Endo - Time Out Entry 1 [...] Modified By: Christine Urena RN 04/15/21 13:19:15 [facility] Endo - Time Out Audit 04/15/21 13:19:15 Warp Drawer: [id number] Modifier: [id number] 1 <*> Procedure to be Performed Esophagogastroduodenoscopy, Colonoscopy, Duodenal Biopsy, Gastric Biopsy 04/15/21 12:54:10 Warp Drawer: [id number] Modifier: [id number] 1 <*> Procedure to be Performed Esophagogastroduodenoscopy, Colonoscopy Case Comments <None> Finalized By: Christine Urena RN Document Signatures Signed By: Christine Urena RN 04/15/21 13:26 Electronically signed by Major [facility] Conversion Exhauster Engineer Cerner at 01/02/2023 6:26 PM CDT documented in this encounter Plan of Treatment Not on file documented as of this encounter Visit Diagnoses Not on filedocumented in this encounter
--- OUTSIDE RECORDS SUMMARY | 2025-03-29 11:01 | XMS_ITS | Encounter Summary ---
Author Organization [employer] ([place], [place], [place], [place]) Address [address] [place] [address] Care Team Providers Care Surgical Device Sales Representative Name Role Phone Unavailable Primary Care Provider Unavailabl e Encounter Details Date Type Department Care Team (Late st Contact Info) Description 04/15/2021 Transcribed Document [facility] [place] [address] [place] [address] ProviderPantera MD [address] [place] [address] Social History Tobacco Use Types [...] Historical ProviderMD - 04/15/2021 2:00 PM CDT [facility] PreOp Summary Primary Physician: NIKHIL RINCON MD Finalized Date/Time: 04/15/21 12:09:37 Pt. Name: SINDY NGUYEN D.O.B./Sex: 1945 Female Med Rec #: [id number] Physician: RODRIGO BASURTO DO-INT Financial #: [id number] Pt. Type: I Room/Bed: [facility]/ Admit/Disch: 04/14/21 23:14:00 - Institution: [facility] PreOp Case Times Entry 1 In [...]
--- OUTSIDE RECORDS SUMMARY | 2025-03-29 11:01 | XMS_ITS | Encounter Summary ---
Author Organization [employer] ([place], [place], [place], [place]) Address [address] [place] [address] Care Team Providers Care Annealer Name Role Phone Unavailable Primary Care Provider Unavailabl e Encounter Details Date Type Department Care Team (Late st Contact Info) Description 04/15/2021 Transcribed Document [facility] [place] [address] [place] [address] ProviderPantera MD [address] [place] [address] Social History Tobacco Use Types [...]
--- OUTSIDE RECORDS SUMMARY | 2025-03-29 11:01 | XMS_ITS | Encounter Summary ---
Author Organization [employer] ([place], [place], [place], [place]) Address [address] [place] [address] Care Team Providers Care Sculpture Conservator Name Role Phone Unavailable Primary Care Provider Unavailabl e Encounter Details Date Type Department Care Team (Late st Contact Info) Description 04/15/[address] [facility] [place] [address] [place] [address] ProviderPantera MD [address] [place] [address] Social History Tobacco Use Types Packs/Day Years Used Date Smoking Tobacco: Never Assessed Comments Unknown Sex and Gender Information Value Date Recorded Sex Assigned at Not on file Legal Sex Female 7:22 PM CDT Gender Identity Not on file Sexual Orientation Not on file documented as of this encounter Miscellaneous Notes * Cerner Conversion Note - Pantera Tineo MD - 04/15/2021 4:08 PM CDT Consult Phone Call Documentation Entered On: 04/15/2021 16:25 EDT Performed On: 04/15/2021 16:08 EDT by Alice Pool Patient [employer] Nurse Robina Phone Call for Consults Consult Phone Call/Page Attempt : Other: spoke with office Consult Reason : sammie Physician Requesting Consult : EDWARDO SCHULTZ PA-C Physician Requested for Consult : ABE العراقي MD-URO Provider Team Notified Name : Urology Physician Covering for Consult : ROSITA LARKIN MD Date and Time Call Returned : 04/15/2021 16:25 EDT Alice Pool Patient [employer] Nurse I - 04/15/2021 16:24 EDT Electronically signed by Olga Gonsalves Conversion Cafeteria Or Lunchroom Checker Cerner at 01/02/2023 6:12 PM CDT documented in this encounter Plan of Treatment Not on file documented as of this encounter Visit Diagnoses Not on filedocumented in this encounter
--- OUTSIDE RECORDS SUMMARY | 2025-03-29 11:01 | XMS_ITS | Encounter Summary ---
Author Organization [employer] ([place], [place], [place], [place]) Address [address] [place] [address] Care Team Providers Care Stove Carriage Operator Name Role Phone Unavailable Primary Care Provider Unavailabl e Encounter Details Date Type Department Care Team (Late st Contact Info) Description 04/15/[address] [facility] [place] Family Medicine [address] [place] [address] ProviderPantera MD [address] [place] [address] Social History Tobacco Use Types Packs/Day Years Used Date Smoking Tobacco: Never Assessed Comments Unknown Sex and Gender Information Value Date Recorded Sex Assigned at Not on file Legal Sex Female 7:22 PM CDT Gender Identity Not on file Sexual Orientation Not on file documented as of this encounter Miscellaneous Notes * Cerner Conversion Note - Pantera Tineo MD - 04/15/2021 3:15 PM CDT [facility] Authorization Entered On: 04/15/2021 15:15 EDT Performed On: 04/15/2021 15:15 EDT by NICOLÁS LUIS RN Primary Insurance Authorization Authorization and Policy Numbers : Insurance 1 Health Plan: [employer] P[employer] Policy Number: [id number] Authorization Number: Insurance Primary Name : [employer] P[employer] Policy Number: [id number] Authorization Status-Primary : Awaiting callback Reference Number-Primary : Pend ref #[id number] Authorized Service Begin Date-Primary : 04/14/2021 EDT Authorization Comments-Primary : Ref to [employer] Historical Authorization Comments-Primary : Comment 1: Pend ref no per Availity, reviewer has access to [employer] (NICOLÁS LUIS RN 04/15/2021 09:26) NICOLÁS LUIS RN - 04/15/2021 15:15 EDT Electronically signed by Major [facility] Conversion Nuclear Fuel Enrichment Technician Cerner at 01/02/2023 6:18 PM CDT documented in this encounter Plan of Treatment Not on file documented as of this encounter Visit Diagnoses Not on filedocumented in this encounter
--- OUTSIDE RECORDS SUMMARY | 2025-03-29 11:01 | XMS_ITS | Encounter Summary ---
Author Organization [employer] ([place], [place], [place], [place]) Address [address] [place] [address] Care Team Providers Care Pin Sorter And Bagger Name Role Phone Unavailable Primary Care Provider Unavailabl e Encounter Details Date Type Department Care Team (Late st Contact Info) Description 04/15/2021 Transcribed Document [facility] [place] Family Medicine [address] [place] [address] ProviderPantera MD [address] [place] [address] Social History Tobacco Use Types [...] 04/16/2021 08:28:00 EDT morphine,1mg IV Push,Left Antecubital [place],Pain (Severe 7-10) Pain Assessment Pain Assessment : Follow-up assessment Pain Scale Goal : 2 Pain Scale Used : 0-10 Scale Location : Back Onset : Acute Cleeste Trujillo RN - 04/16/2021 9:35 EDT Pain [...]
--- OUTSIDE RECORDS SUMMARY | 2025-03-29 11:01 | XMS_ITS | Encounter Summary ---
Author Organization [employer] ([place], [place], [place], [place]) Address [address] [place] [address] Care Team Providers Care Radiology Teacher Name Role Phone Unavailable Primary Care Provider Unavailabl e Encounter Details Date Type Department Care Team (Late st Contact Info) Description 04/15/[address] [facility] [place] Family Medicine [address] [place] [address] ProviderPantera MD [address] [place] [address] Social History Tobacco Use Types [...] Historical ProviderMD - 04/15/2021 12:50 PM CDT [facility] Endo PACU Summary Primary Physician: NIKHIL RINCON MD Finalized Date/Time: 04/15/21 13:58:40 Pt. Name: SINDY NGUYEN D.O.B./Sex: 1945 Female Med Rec #: [id number] Physician: RODRIGO BASURTO DO-INT Financial #: [id number] Pt. Type: I Room/Bed: [facility]/1 Admit/Disch: 04/14/21 23:14:00 - Institution: [facility] PACU Case Times Entry 1 In PACU I 04/15/21 13:31:00 Ready for PACU 04/15/21 13:55:00 Discharge Discharge from PACU 04/15/21 13:57:00 I Last Modified By: Harriett Antoine RN 04/15/21 13:58:38 [facility] Endo PACU Case Times Audit 04/15/21 13:58:38 Flat Lock Machine Operator: JACKELIN Modifier: JACKELIN <+> 1 Ready for PACU Discharge <+> 1 Discharge from PACU I Finalized By: Harriett Antoine, RN Document Signatures Signed By: Harriett Antoine RN 04/15/21 13:58 Electronically signed by Major [facility] Conversion Crystallizer Operator Cerner at 01/02/2023 6:09 PM CDT documented in this encounter Plan of Treatment Not on file documented as of this encounter Visit Diagnoses Not on filedocumented in this encounter
--- OUTSIDE RECORDS SUMMARY | 2025-03-29 11:01 | XMS_ITS | Encounter Summary ---
Author Organization [employer] ([place], [place], [place], [place]) Address [address] [place] [address] Care Team Providers Care Mechanical Shop Laborer Name Role Phone Unavailable Primary Care Provider Unavailabl e Encounter Details Date Type Department Care Team (Late st Contact Info) Description 04/15/[address] [facility] [place] [address] [place] [address] ProviderPantera MD [address] [place] [address] Social History Tobacco Use Types Packs/Day Years Used Date Smoking Tobacco: Never Assessed Comments Unknown Sex and Gender Information Value Date Recorded Sex Assigned at Not on file Legal Sex Female 7:22 PM CDT Gender Identity Not on file Sexual Orientation Not on file documented as of this encounter Miscellaneous Notes * Cerner Conversion Note - Pantera Tineo MD - 04/15/2021 9:26 AM CDT UM Authorization Entered On: 04/15/2021 9:26 EDT Performed On: 04/15/2021 9:26 EDT by NICOLÁS LUIS RN Primary Insurance Authorization Authorization and Policy Numbers : Insurance 1 Health Plan: [employer] PPO Policy Number: [id number] Authorization Number: Insurance Primary Name : [employer] PPO Policy Number: [id number] Authorization Status-Primary : Awaiting callback Reference Number-Primary : Pend ref #[id number] Authorized Service Begin Date-Primary : 04/14/2021 EDT [...]
--- OUTSIDE RECORDS SUMMARY | 2025-03-29 11:01 | XMS_ITS | Encounter Summary ---
Author Organization [employer] ([place], [place], [place], [place]) Address [address] [place] [address] Care Team Providers Care Payroll Director Name Role Phone Unavailable Primary Care Provider Unavailabl e Encounter Details Date Type Department Care Team (Late st Contact Info) Description 04/15/2021 Transcribed Document [facility] [place] Family Medicine [address] [place] [address] ProviderPantera MD [address] [place] [address] Social History Tobacco Use Types [...]
--- OUTSIDE RECORDS SUMMARY | 2025-03-29 11:01 | XMS_ITS | Encounter Summary ---
Author Organization [employer] ([place], [place], [place], [place]) Address [address] [place] [address] Care Team Providers Care Financial Services Education Consultant Name Role Phone Unavailable Primary Care Provider Unavailabl e Encounter Details Date Type Department Care Team (Late st Contact Info) Description 04/15/2021 Transcribed Document [facility] [place] Family Medicine [facility] [place] [address] ProviderPantera MD [address] [place] [address] Social History Tobacco Use Types [...] JANET GRAHAM, PT - 04/16/2021 12:10 EDT Group Home Goals Mobility/Bed Mobility LTG PT Grid Goal #1 Goal #2 Activity : Supine to sit Sit to stand Assist : Independent, modified Independent, modified Date to Meet : 04/30/2021 EDT 04/30/2021 EDT Goal Status : Intial Goal Intial Goal JANET GRAHAM, PT - 04/16/2021 12:10 EDT JANTE GRAHAM, PT - 04/16/2021 12:10 EDT Ambulation [...] JANET GRAHAM, PT - 04/16/2021 12:10 EDT [place] PT Charges PT Therap. Exercise 15 min : 1 PT Eval Low Complexity : 1 JANET GRAHAM PT - 04/16/2021 12:10 EDT documented in this encounter Plan of Treatment Not on file documented as of this encounter Visit Diagnoses Not on filedocumented in this encounter
--- OUTSIDE RECORDS SUMMARY | 2025-03-29 11:01 | XMS_ITS | Encounter Summary ---
Author Organization [employer] ([place], [place], [place], [place]) Address [address] [place] [address] Care Team Providers Care Screener And Blender Operator Name Role Phone Unavailable Primary Care Provider Unavailabl e Encounter Details Date Type Department Care Team (Late st Contact Info) Description 04/15/2021 Transcribed Document [facility] [place] Family Medicine [address] [place] [address] ProviderPantera MD [address] [place] [address] Social History Tobacco Use Types [...] 04/15/2021 8:00 EDT by Alice Pool Patient Sports Specialist Robina Phone Call for Consults Consult Phone Call/Page Attempt : Other: spoke with chinmay Consult Reason : gi bleed, occult + Physician Requesting Consult : RODRIGO BASURTO DO-INT Physician Requested for Consult : KENRICK SULLIVAN MD Provider Service Notified Name : Gastroenterology Date and Time Call Returned : 04/15/2021 9:34 EDT Alice Pool Patient Sports Specialist I - 04/15/2021 9:33 EDT documented in this encounter Plan of Treatment Not on file documented as of this encounter Visit Diagnoses Not on filedocumented in this encounter
--- OUTSIDE RECORDS SUMMARY | 2025-03-29 11:01 | XMS_ITS | Encounter Summary ---
Author Organization [employer] ([place], [place], [place], [place]) Address [address] [place] [address] Care Team Providers Care Scientist Engineer Name Role Phone Unavailable Primary Care Provider Unavailabl e Encounter Details Date Type Department Care Team (Late st Contact Info) Description 04/15/2021 Transcribed Document [facility] [place] Family Medicine [facility] [place] [address] ProviderPantera MD [address] [place] [address] Social History Tobacco Use Types [...] OCCUPATIONAL THERAPIST NON-EXEMPT - 04/16/2021 13:01 EDT Online Merchandising Specialist Goals, OT Grooming LTG Grid Goal #1 [...] or set up Equipment : Long Handled Twill Cutter, Sock aid Date to Meet : 04/30/2021 EDT Goal Status : Initial goal Isabella Spring OCCUPATIONAL THERAPIST NON-EXEMPT - 04/16/2021 13:01 EDT Toilet Transfer LTG Grid Goal #1 Activity : Toilet Transfer, Ambulatory Assist : Independent, modified Date to Meet : 04/30/2021 EDT Goal Status : Initial goal Bucholz, Isabella, OCCUPATIONAL THERAPIST NON-EXEMPT - 04/16/2021 13:01 EDT [...] Location : Back Isabella Spring OCCUPATIONAL THERAPIST NON-GENOVEVA - 04/16/2021 13:01 EDT Image 1 - [...] Complexity : 1 Isabella Spring OCCUPATIONAL THERAPIST EMANUEL-EXEMZAINA - 04/16/2021 13:01 EDT documented in this encounter Plan of Treatment Not on file documented as of this encounter Visit Diagnoses Not on filedocumented in this encounter
--- OUTSIDE RECORDS SUMMARY | 2025-03-29 11:02 | XMS_ITS | Encounter Summary ---
Author Organization [employer] ([place], [place], [place], [place]) Address [address] [place] [address] Care Team Providers Care Distance Education Faculty Liaison Name Role Phone Unavailable Primary Care Provider Unavailabl e Encounter Details Date Type Department Care Team (Late st Contact Info) Description 04/14/2021 Transcribed Document [facility] Family Medicine [place] [address] ProviderPantera MD [address] [place] [address] Social History Tobacco Use Types [...] Verbalizes understanding Visiting Policy : Verbalizes understanding Cathie Peters LPN - 04/14/2021 23:44 EDT Functional Assessment Living Situation : Home Current Home Treatments : Blood glucose monitoring, CPAP, Oxygen therapy Cathie Peters LPN 04/14/2021 23:44 EDT General Info Contact Password : Celeste Jimenez RN - 04/15/2021 14:26 EDT Support Person/Patient Lead Producer : Yes Support Person/Pt Rep Name : annalise Nasreen - friend Support Person/Pt Rep Contact Information : [phone] Want Family/Rep/Phys Notified of Admit : No Emergency Contact #1 : Celeste Rios Emergency Contact #1 Emergency Contact #1 Relationship : Daughter Emergency Contact #2 : Mariana Tee Emergency Contact #2 Emergency Contact #2 Relationship : Daughter Primary Language : [place] Preferred Communication Mode : Verbal Communication Barrier : None Tunnel Mucker Needed : No Cathie Peters LPN - [...] Level : 46 or > High Risk [place] Fall Interventions : Adequate lighting, Assistive devices [...] Source : Estimated Height Entry Format : [place] Height, Feet : 5 ft(Converted to: 152 cm, 60 Inch) Height, Inches : 5 Inch(Converted to: 0 ft 5 Inch, 12.70 cm) Clinical Height : 165.1 cm Weight Source : Estimated [place] Body Weight : 57 kg Cathie Peters LPAlonso Laird 04/14/2021 23:44 EDT Estimated Weight Type of Weight Measurement Est : [place] Weight, est lb : 194 lb(Converted to: [...] Tuberculosis Symptoms : None Cathie Peters ZABRINA Laird 04/14/2021 23:44 EDT Tetanus Immunization Status Previous [...] Crushed/Liquid : No Cathie Peters LPN - 8/1/2021 23:44 EDT Nutrition History Eating Poorly Due to Decreased Appetite : Yes Unplanned Weight Loss in Past 3-6 Months : Unsure Unplanned Weight Loss Amount : Unsure Malnutrition Screening Tool Total(mal) : 5 Malnutrition Screening Tool Risk Level : Patient at risk Cathie Peters LPN - 04/14/2021 23:44 EDT [place] Suicide Severity Rating Scale (C-SSRS) CSSRS Past Month Wish to be : No CSSRS Past Month Suicidal Thoughts : No CSSRS Lifetime Suicide Behavior : No Suicide Severity Rating Score : 0 Suicide Severity Rating : No Additional Care Required at this time Cathie Peters LPN - 04/14/2021 23:44 EDT Psychosocial History Currently in Unsafe Situation : No Cathie Peters LPN - 8/1/2021 23:44 EDT Sleep Apnea Risk Assmt BiPAP/CPAP Ordered for Home Use : Yes Hx of Obstructive Sleep Apnea Diagnosis : Yes BiPAP/CPAP Used at Home : Yes Age over 50 Years Old : Yes Gender Male : No Cathie Peters LPN - 04/14/2021 23:44 EDT Spiritual/Cultural Needs Jainism Preference : Mormon Cathie Peters LPN - 04/14/2021 23:44 EDT Valuables and Belongings Valuables and Belongings : Clothing, Personal devices, Personal items Clothing : Common streetwear Clothing Disposition : Bedside Personal Device Disposition : With patient Personal Devices : Dentures, upper, Dentures, lower Personal Items : Cell phone, Other: phone clinic specialist Personal Items Disposition : Bedside Cathie Peters LPN - 04/14/2021 23:44 EDT Electronically signed by Major, [facility] Conversion Security Systems Technician Cerner at 01/02/2023 6:11 PM CDT documented in this encounter Plan of Treatment Not on file documented as of this encounter Visit Diagnoses Not on filedocumented in this encounter
--- OUTSIDE RECORDS SUMMARY | 2025-03-29 11:02 | XMS_ITS | Encounter Summary ---
Author Organization [employer] ([place], [place], [place], [place]) Address [address] [place] [address] Care Team Providers Care Patient Case Coordinator Name Role Phone Unavailable Primary Care Provider Unavailabl e Encounter Details Date Type Department Care Team (Late st Contact Info) Description 04/18/2021 Transcribed Document [facility] [place] Family Medicine [address] [place] [address] ProviderPantera MD [address] [place] [address] Social History Tobacco Use Types Packs/Day Years Used Date Smoking Tobacco: Never Assessed Comments Unknown Sex and Gender Information Value Date Recorded Sex Assigned at Not on file Legal Sex Female 7:22 PM CDT Gender Identity Not on file Sexual Orientation Not on file documented as of this encounter Miscellaneous Notes * Cerner Conversion Note - Pantera Tineo MD - 04/18/2021 9:29 AM CDT Meds to [...]
--- OUTSIDE RECORDS SUMMARY | 2025-03-29 11:02 | XMS_ITS | Encounter Summary ---
Author Organization [employer] ([place], [place], [place], [place]) Address [address] [place] [address] Care Team Providers Care Project Planner Name Role Phone Unavailable Primary Care Provider Unavailabl e Encounter Details Date Type Department Care Team (Late st Contact Info) Description 04/15/2021 Transcribed Document [facility] [place] [address] [place] [address] ProviderPantera MD [address] [place] [address] Social History Tobacco Use Types [...] MD-ANS (Anesthesiologist) NICOLE MEDINA MD-ANS (Anesthesiologist) MAC TLYER SCHROEDER MD-ANS (Anesthesiologist) NICOLE MEDINA MD-ANS (Anesthesiologist) MAC MAYSI-TYLER AN MD-ANS (Anesthesiologist) NICOLE MEDINA MD-ANS (Anesthesiologist) Indication for Surgery diarrhea, GI [...] - Start Time: 04/15/21 13:07:00 (04/15/21 13:19:10) documented in this encounter Plan of Treatment Not on file documented as of this encounter Visit Diagnoses Not on filedocumented in this encounter
--- OUTSIDE RECORDS SUMMARY | 2025-03-29 11:02 | XMS_ITS | Encounter Summary ---
Author Organization [employer] ([place], [place], [place], [place]) Address [address] [place] [address] Care Team Providers Care Team Supervisor Name Role Phone Unavailable Primary Care Provider Unavailabl e Encounter Details Date Type Department Care Team (Late st Contact Info) Description 04/17/2021 Transcribed Document [place] Family Medicine [address] [place] [address] ProviderPantera MD [address] [place] [address] Social History Tobacco Use Types [...] Historical ProviderMD - 04/17/2021 2:00 AM CDT Community Health Agent Details Entered On: 04/17/2021 3:10 EDT Performed [...]
--- OUTSIDE RECORDS SUMMARY | 2025-03-29 11:02 | XMS_ITS | Encounter Summary ---
Author Organization [employer] ([place], [place], [place], [place]) Address [address] [place] [address] Care Team Providers Care Automation Clerk Name Role Phone Unavailable Primary Care Provider Unavailabl e Encounter Details Date Type Department Care Team (Late st Contact Info) Description 04/18/2021 Transcribed Document [facility] [place] Family Medicine [address] [place] [address] ProviderPantera MD [address] [place] [address] Social History Tobacco Use Types [...] Historical ProviderMD - 04/18/2021 2:00 AM CDT Computer Systems Security Administrator Details Entered On: 04/18/2021 3:42 EDT Performed [...]
--- OUTSIDE RECORDS SUMMARY | 2025-03-29 11:02 | XMS_ITS | Encounter Summary ---
Author Organization [employer] ([place], [place], [place], [place]) Address [address] [place] [address] Care Team Providers Care Culture Media Laboratory Assistant Name Role Phone Unavailable Primary Care Provider Unavailabl e Encounter Details Date Type Department Care Team (Late st Contact Info) Description 04/19/2021 Transcribed Document [facility] [place] [address] [place] [address] ProviderPantera MD [address] [place] [address] Social History Tobacco Use Types Packs/Day Years Used Date Smoking Tobacco: Never Assessed Comments Unknown Sex and Gender Information Value Date Recorded Sex Assigned at Not on file Legal Sex Female 7:22 PM CDT Gender Identity Not on file Sexual Orientation Not on file documented as of this encounter Miscellaneous Notes * Cerner Conversion Note - Pantera Tineo MD - 04/19/2021 2:52 PM CDT UM Authorization Entered On: 04/19/2021 14:52 EDT Performed On: 04/19/2021 14:52 EDT by CHRIS LARKIN RN Primary Insurance Authorization Authorization and Policy Numbers : Insurance 1 Health Plan: [employer] PPO Policy Number: [id number] Authorization Number: Insurance Primary Name : [employer] PPO Policy Number: [id number] Authorization Status-Primary : Notification only Reference Number-Primary : Pend ref #[id number] Authorized Service Begin Date-Primary : 04/14/2021 EDT [...] CHRIS LARKIN RN - 04/19/2021 14:52 EDT documented in this encounter Plan of Treatment Not on file documented as of this encounter Visit Diagnoses Not on filedocumented in this encounter
--- OUTSIDE RECORDS SUMMARY | 2025-03-29 11:02 | XMS_ITS | Encounter Summary ---
Author Organization [employer] ([place], [place], [place], [place]) Address [address] [place] [address] Care Team Providers Care Chemical Processing Laborer Name Role Phone Unavailable Primary Care Provider Unavailabl e Encounter Details Date Type Department Care Team (Late st Contact Info) Description 04/18/2021 Transcribed Document [facility] [place] Family Medicine [facility] [place] [address] ProviderPantera MD [address] [place] [address] Social History Tobacco Use Types [...] ERICK STALEY PTA - 04/18/2021 14:43 EDT Prism Inspector Goals Mobility/Bed Mobility LTG PT Grid Goal [...] EDT Electronically signed by Olga Gonsalves Conversion Montessori Preschool Teacher Cerner at 01/02/2023 6:02 PM CDT documented in this encounter Plan of Treatment Not on file documented as of this encounter Visit Diagnoses Not on filedocumented in this encounter
--- OUTSIDE RECORDS SUMMARY | 2025-03-29 11:02 | XMS_ITS | Encounter Summary ---
Author Organization [employer] ([place], [place], [place], [place]) Address [address] [place] [address] Care Team Providers Care Shredding Machine Tender Name Role Phone Unavailable Primary Care Provider Unavailabl e Encounter Details Date Type Department Care Team (Late st Contact Info) Description 04/18/2021 Transcribed Document [facility] [place] [address] [place] [address] ProviderPantera MD [address] [place] [address] Social History Tobacco Use Types Packs/Day Years Used Date Smoking Tobacco: Never Assessed Comments Unknown Sex and Gender Information Value Date Recorded Sex Assigned at Not on file Legal Sex Female 7:22 PM CDT Gender Identity Not on file Sexual Orientation Not on file documented as of this encounter Miscellaneous Notes * Cerner Conversion Note - Pantera Tineo MD - 04/18/2021 3:57 PM CDT Nursing Discharge [...]
--- OUTSIDE RECORDS SUMMARY | 2025-03-29 11:02 | XMS_ITS | Encounter Summary ---
Author Organization [employer] ([place], [place], [place], [place]) Address [address] [place] [address] Care Team Providers Care Adding Machine Servicer Name Role Phone Unavailable Primary Care Provider Unavailabl e Encounter Details Date Type Department Care Team (Late st Contact Info) Description 04/18/2021 Transcribed Document [facility] [place] [address] [place] [address] ProviderPantera MD [address] [place] [address] Social History Tobacco Use Types Packs/Day Years Used Date Smoking Tobacco: Never Assessed Comments Unknown Sex and Gender Information Value Date Recorded Sex Assigned at Not on file Legal Sex Female 7:22 PM CDT Gender Identity Not on file Sexual Orientation Not on file documented as of this encounter Miscellaneous Notes * Cerner Conversion Note - Pantera Tnieo MD - 04/18/2021 10:18 AM CDT Final Discharge Planning Entered On: 04/18/2021 10:25 EDT Performed On: 04/18/2021 10:18 EDT by Ramón Hurst, LICENSED PROSTHETIST/ORTHOTIST NON-EXEMPT Final Discharge Planning Discharge Arrangements : Patient Post-Acute Information Patient Name: SINDY NGUYEN [facility]: [id number] Gender: Female : [birth year] Age: 75 Years [...] Services (Related/SOC within 3 days)-06 Ramón Hurst LICENSED PROSTHETIST/ORTHOTIST NON-EXEMPT - 04/18/2021 10:18 EDT Final Narrative Note Final Narrative Note : Pt was seen at bedside. She is to D/C today. Pt plans to live with a friend in [place], [place]. Updated address was provided to [employer] [facility] [employer] [facility]. HH will start tomorrow. Walker will be delivered later today to friend's house. Pt's friend will be providing transportation. IMM provided. She does not wish to appeal D/C. No further issues or cocnerns. MD & RN are aware of plan. CM has cleared for D/C. Ramón Hurst LICENSED PROSTHETIST/ORTHOTIST NON-EXEMPT - 04/18/2021 10:18 EDT documented in this encounter Plan of Treatment Not on file documented as of this encounter Visit Diagnoses Not on filedocumented in this encounter
--- OUTSIDE RECORDS SUMMARY | 2025-03-29 11:02 | XMS_ITS | Clinical Summary ---
Author Organization [employer] ([place], [place], [place], [place]) Address [address] [place] [address] Care Team Providers Care Fruit Press Operator Name Role Phone Unavailable Primary Care [...]
--- OUTSIDE RECORDS SUMMARY | 2025-03-29 11:02 | XMS_ITS | Patient Health Record ---
Author Organization [facility] Address [address] [place] [address] Care Team Providers Care Pet Care Assistant Name Role Phone Claire Ramirez Primary Care Provider Delvin Newton Unavailable Unavailable Sheryl Velasquez Unavailable [phone] Migration, Provider Unavailable Unavailable Allergies Allergen (clinical [...] >=1.030 Ketone trace Bili small Glucose neg CT Scan : Chest, Lung Cancer Screening Reviewed date:01/20/2025 03:12:44 PM Interpretation: Performing Lab: Notes/Report: Mammogram : Bilateral Reviewed date:01/23/2025 12:32:30 PM Interpretation: Performing Lab: Notes/Report: DEXA Hip and Spine - Screeni ng Reviewed date:01/20/2025 03:12:44 PM Interpretation: Performing Lab: Notes/Report: BASIC METABOLIC PANEL (86255 ) Reviewed date:01/12/2025 03:27:05 PM Interpretation: Performing Lab:[facility] [address] [employer], InfrafoneOdsvLK[address] David Calles Notes/Report: NON-FASTING; NON-FASTING; NON-FASTING GLUCOSE [...] Reviewed date:01/12/2025 03:27:05 PM Interpretation: Performing Lab:[facility] [address] [employer], InfrafoneMedrCL[address] David Calles Notes/Report: NON-FASTING; NON-FASTING; NON-FASTING HEMOGLOBIN [...] this should be confirmed with a follow-up TSH W/REFLEX TO FT4 (01925) Reviewed date:01/12/2025 03:27:05 PM Interpretation: Performing Lab:[facility], [facility] [address], [place] WgwdHI[address] David Calles Notes/Report: NON-FASTING; NON-FASTING; NON-FASTING TSH W/REFLEX TO FT4 1.05 0.40-4.50 mIU/L M-Complete Blood Count Auto Diff Reviewed date:10/14/2024 [...] 0.3 0.0-0.4 K/mm3 BA# 0.1 0-0.2 K/mm3 M-Comprehensive Metabolic Pa amanda Reviewed date:10/14/2024 10:29:15 [...] AGRATIO 1.7 1.1-1.8 ALP 52 38-126 U/L M-Hemoglobin A1C Reviewed date:10/14/2024 10:29:15 AM Interpretation: Performing Lab: Notes/Report: HGBA1C 6.5 4.0-6.0 % < 6% Non-Diabetic Level < 7% Controlled Diabetic Level > 8% Poorly Controlled Diabetic Level M-Lipid Panel Reviewed date:10/14/2024 10:29:15 AM Interpretation: Performing Lab: Notes/Report: Patient Fasting? N TRIG 208 30-150 mg/dl CHOL 122 140-200 mg/dl DLDL 51.61 100-129 mg/dL VLDL 42 0-40 mg/dL HDL 46 40-60 mg/dl CHLHDL 2.7 1-3.5 M-Thyroid Stimulating Hormon e Reviewed date:10/14/2024 10:29:15 AM Interpretation: Performing Lab: Notes/Report: TSH 0.04 0.465-4.68 uIU/mL H-TVITD Reviewed date:10/14/2024 10:29:15 AM Interpretation: Performing Lab: Notes/Report: TVITD 28.9 30-100 ng/mL Deficient <20 ng/mL Insufficient 20-30 ng/mL Sufficient 30-100 ng/mL Potential Toxicity >100 ng/mL H-MALBCREA Reviewed date:10/14/2024 10:29:15 AM Interpretation: Performing Lab: Notes/Report: Units: mg/g creat Normal: 0 - 29 Moderately Increased: 30 - 300 Severely Increased: >300 UCREAT 98 Not Estab. mg/dL Random urine reference range not established. 24 hour urine samples recommended. MICROALB 62.700 0-16.7 mg/L MALBCREAT 63.9 COMPREHENSIVE METABOLIC PANE L (87676) Reviewed date:04/19/2024 01:08:52 PM Interpretation: Performing Lab:[facility], [facility] [address], [place] SfprCF[address] David Calles Notes/Report: NON-FASTING; NON-FASTING; NON-FASTING; NON-FASTING [...] 9) Reviewed date:04/19/2024 01:08:53 PM Interpretation: Performing Lab:[facility], [facility] Rapidse[address] [facility], [facility] CenterNohxRP[address] David Calles Notes/Report: NON-FASTING; NON-FASTING; NON-FASTING; NON-FASTING WHITE BLOOD CELL COUNT 8.3 3.8-10.8 Thousand/ uL RED BLOOD CELL COUNT 4.40 3.80-5.10 Million/uL HEMOGLOBIN 13.6 11.7-15.5 g/dL HEMATOCRIT 43.0 35.0-45.0 % MCV 97.7 80.0-100.0 fL MCH 30.9 27.0-33.0 pg MCHC 31.6 32.0-36.0 g/dL RDW 13.3 11.0-15.0 % PLATELET COUNT 256 140-400 Thousand/uL MPV 9.8 7.5-12.5 fL ABSOLUTE NEUTROPHILS 3561 5763-8675 cells/uL ABSOLUTE LYMPHOCYTES 3884 850-3900 cells/uL ABSOLUTE MONOCYTES 523 200-950 cells/uL ABSOLUTE EOSINOPHILS 249 15-500 cells/uL ABSOLUTE BASOPHILS 83 0-200 cells/uL NEUTROPHILS 42.9 LYMPHOCYTES 46.8 MONOCYTES 6.3 EOSINOPHILS 3.0 BASOPHILS 1.0 FERRITIN (457) Reviewed date:04/19/2024 01:08:53 PM Interpretation: Performing Lab:[facility], [facility] [address], [facility] CenterMcwbOP[address] David Calles Notes/Report: NON-FASTING; NON-FASTING; NON-FASTING; NON-FASTING FERRITIN 88 16-288 ng/mL VITAMIN D,25-OH,TOTAL,IA (17 306) Reviewed date:04/19/2024 01:08:53 PM Interpretation: Performing Lab:[facility] [address], [place] BdjjIQ[address] David Calles Notes/Report: NON-FASTING; NON-FASTING; NON-FASTING; NON-FASTING [...] D, (D2,D3), LC/MS/MS is recommended: order code 23152 (patients >2yrs). See Note 1 Note 1 For additional information, please refer to http://education.Bolt.vozero/faq/DNR803 (This link is being provided for informational/ educational purposes only.) CULTURE, URINE, ROUTINE (395 ) Reviewed date:01/12/2025 03:27:05 PM Interpretation: Performing Lab:[facility] [address], [facility] RapidsYpetQA[address] David Calles Notes/Report: NON-FASTING; NON-FASTING; NON-FASTING CULTURE, URINE, ROUTINE SEE NOTE E.coli COMMENT: Additional non-predominating organism(s) isolated. These organisms, commonly found on external and internal genitalia, are considered colonizers. No further testing performed. CULTURE, URINE, ROUTINE Micro Number: [id number] Test Status: Final Specimen Source: Urine, clean [...] cefdinir, cefpodoxime, cefprozil, cefuroxime, cephalexin and loracarbef. Reason For Referral Reason Mammogram DEXA sca n Screening CT Chest Diagnosis [address] [facility] visit, subsequent (Z00.00) Referral Organization [facility] Referring Provider First Name Claire Referring Provider Last Name Ashley Referring Provider [facility] Referred Organization [facility] Referred Address [address] [place] [address], Referred Provider Specialty Diagnostic R adiology General Notes Estefani Huang 2024 03:36:01 PM >sent to [facility] to schedule, Estefani Huang 10/07/2024 04:27:59 PM >checked [facility] Referral Priority Routine Referral Appointment Date 10/25/2024 Reason Bilat lower extremit y SVEN Deyong Diagnosis 1 Dependent rubor (L53 .9) Referral Organization [facility] Referring Provider First Name Claire Referring Provider Last Name Ashley [facility] Referred Organization [facility] Referred Address [address] [place] [address], Referred Provider Specialty Diagnostic R adiology General Notes Estefani Huang 2024 08:52:49 AM >sent to [facility] Referral Priority Routine Medications Medication SIG (Take, Route, Frequency, Duration) Notes Start Date End Date Status PORTABLE OXYGEN (OXYLITE) DX: COPD *Please review for potential replacement for e-prescription and drug interaction check* 03/18/2023 Active Vitamin D (Ergocalciferol) 1.25 MG (30013 UT) 1 cap(s) orally once a week; Duration: 30 day(s) Active Aspirin 81 MG 1 tab(s) orally once a day; Duration: 30 day(s) Active Trelegy Ellipta 100 MCG-62.5 MCG-25 MCG/INH 1 PUFF(S) INHALED ONCE A DAY; Duration: 30 DAYS *Please review and pick correct strength-formulati on from [employer] options. If intended option is not shown, discontinue and re-order from Quick Search* 08/24/2023 Active Montelukast Sodium 10 MG 1 tab(s) orally once a day; Duration: 90 days Active POTASSIUM CHLORIDE (UMP-XZYY-HWP 10) 10 MEQ TAKE ONE TABLET BY [...] review and pick correct strength-formulati on from [employer] options. If intended option is not shown, [...] review and pick correct strength-formulati on from [employer] options. If intended option is not shown, [...] Status W/U Status Risk Notes Problem Hypothyroidism (34721040) Hypothyroidism, unspecified (E03.9) Active confirmed Problem Type 2 diabetes mellitus with other specified complication (E11.69) Active confirmed Problem Tobacco user (593698325) Nicotine dependence, cigarettes, uncomplicated (F17.210) Active confirmed Problem Anxiety disorder (513333782) Anxiety disorder, unspecified (F41.9) Active confirmed Problem Psychophysiologic insomnia (015553059) Psychophysiologic insomnia (F51.04) Active confirmed Problem Obstructive sleep apnea syndrome (disorder) (71333706) Obstructive sleep apnea (adult) (pediatric) (G47.33) Active confirmed Problem Chronic pain (72213809) Other chronic pain (G89.29) Active confirmed Problem Paroxysmal atrial fibrillation (569216532) Paroxysmal atrial fibrillation (I48.0) Active confirmed Problem Chronic respiratory failure (80070667) Chronic respiratory failure, unspecified whether with hypoxia or hypercapnia (J96.10) Active confirmed Problem Chronic respiratory failure (44409475) Chronic respiratory failure with hypoxia (J96.11) Active confirmed Problem Localized, primary osteoarthritis of the shoulder region (682087478) Primary osteoarthritis, right shoulder (M19.011) Active confirmed Problem Localized, primary osteoarthritis of the shoulder region (487327147) Primary osteoarthritis, left shoulder (M19.012) Active confirmed Problem Fibromyalgia (410170825) Fibromyalgia (M79.7) Active confirmed Problem Weakness (60306318) Weakness (R53.1) Active con firmed Problem Dependence on enabling machine or device (454400775) Dependence on other enabling machines and devices (Z99.89) Active confirmed Problem Anxiety (28075612) Anxiety (F41.9) Active confi rmed Problem Vitamin D deficiency (72426115) Vitamin D deficiency (E55.9) Active confirmed Problem Essential hypertension (50237558) Essential hypertension (I10) Active confirmed Problem Acute exacerbation of chronic obstructive airways disease (505232191) COPD exacerbation (J44.1) Active confirmed Problem Body mass index 30.00 to 34.99 (295059034959982) BMI 31.0-31.9,adult (Z68.31) Active confirmed Problem Chronic pain syndrome (802241173) Chronic pain disorder (G89.4) Active confirmed Problem Gastric reflux (530782534) Gastric reflux (K21.9) Active confirmed Problem BMI 30+ - obesity (507246539) BMI 32.0-32.9,adult (Z68.32) Active confirmed Problem Hyperlipidemia (44466404) Hyperlipidemia, unspecified (E78.5) Active confirmed Problem 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, 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) Active confirmed Problem Cigarette smoker (08709228) Cigarette smoker (F17.210) Active confirmed Problem COPD - Chronic obstructive pulmonary disease (60154672) Chronic obstructive pulmonary disease, unspecified COPD type (J44.9) Active confirmed Problem Obesity (544583109) Non morbid o besity, unspecified obesity type (E66.9) Active confirmed Problem Acute exacerbation of chronic obstructive airways disease (289467671) Acute exacerbation of COPD with asthma (J44.1) Active confirmed Problem Overactive urinary bladder (disorder) (961284083) OAB (overactive bladder) (N32.81) Active confirmed Problem Iron deficiency anemia (40251048) Iron deficiency anemia, unspecified iron deficiency anemia type (D50.9) Active confirmed Problem Body mass index 25-29 - overweight (698520218) BMI 26.0-26.9,adult (Z68.26) Active confirmed Problem Weight loss advised (232818365) Weight loss counseling, encounter for (Z71.3) Active confirmed Problem Increased hemoglobin (024028207) Elevated hemoglobin (D58.2) Active confirmed Problem Microcytic anemia (902083214) Microcytic anemia (D50.9) Active confirmed Problem Type II diabetes mellitus without complication (453072927) Type 2 diabetes mellitus without complication, without long-term current use of insulin (E11.9) Active confirmed Problem Type II diabetes mellitus without complication (941866552) Controlled type 2 diabetes mellitus without complication, without long-term current use of insulin (E11.9) Active confirmed Problem Pica (90551125) Pica (F50.89) Active confirmed Problem Mixed incontinence (775195804) Urinary incontinence, mixed (N39.46) Active confirmed Problem Anxiety state (247223960) Anxiety state, unspecified (F41.1) Active confirmed Problem Postmenopausal osteoporosis (824659382) Postmenopausal osteoporosis (M81.0) Active confirmed Problem Major depression, single episode (67355576) Chronic major depressive disorder (F32.9) Active confirmed Problem Body mass index 30.00 to 34.99 (005839406387566) Adult BMI 31.0-31.9 kg/sq m (Z68.31) Active confirmed Problem Degeneration of thoracic intervertebral disc (55399278) Thoracic degenerative disc 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) Active confirmed Problem Chronic obstructive pulmonary disease (54209838) Advanced COPD (J44.9) Active confirmed Problem Chronic hypoxemic respiratory failure (896446751) Chronic hypoxemic respiratory failure (J96.11) Active confirmed Problem Cough (12971318) Cough (R05.9) Active confirmed Problem Vitamin D intoxication (75702228) Vitamin D intoxication (E67.3) Active confirmed Vital [...] 03/06/2025 Encounters Encounter Location Date Provider Diagnosis [facility] [address] [address] 12/17/2024 Provider Migration Chronic obstructive pulmonary disease, unspecified COPD type J44.9 ; Medicare annual wellness visit, subsequent Z00.00 ; Chronic major depressive disorder F32.9 and Advanced COPD J44.9 [facility] [address] [place] [address] 04/18/2024 Claire Ramirez Psychophysiologic insomnia F51.04 ; Other chronic pain G89.29 ; Vitamin D intoxication E67.3 ; Elevated hemoglobin D58.2 ; Elevated hematocrit R71.8 ; Type 2 diabetes mellitus with other specified complication E11.69 and Hyperlipidemia, unspecified E78.5 [facility] [address] [place] [address] 06/30/2024 Claire Ramirez Immunization(s) administered Z23 ; Psychophysiologic insomnia F51.04 ; Other chronic pain G89.29 and Chronic constipation K59.09 [facility] [address] [place] [address] 10/04/2024 Claire Ramirez Psychophysiologic insomnia F51.04 ; [...] tobacco use Z87.891 and Hypothyroidism, unspecified E03.9 [facility] [address] [facility] [address] [place] [address] 12/26/2024 Claire Ramirez Dysuria R30.0 ; Acut e UTI N39.0 and Dependent rubor L53.9 [facility] [address] [place] [address] 01/09/2025 Claire Ramirez Psychophysiologic insomnia F51.04 ; Other chronic pain G89.29 ; Type 2 diabetes mellitus with other specified complication E11.69 ; Chronic major depressive disorder F32.9 ; Essential hypertension I10 ; Advanced COPD J44.9 ; Hypothyroidism, unspecified E03.9 and Dysuria R30.0 [facility] [address] [place] [address] 03/06/2025 Claire Ramirez Fall from standing, subsequent encounter W19.XXXD ; Chest wall pain R07.89 ; Closed nondisplaced fracture of third metacarpal bone of left hand, unspecified portion of metacarpal, sequela S62.303S ; Contusion of right knee, subsequent encounter S80.01XD and Contusion of right lower leg, subsequent encounter S80.11XD [facility] [address] [address] 07/20/2024 Claire Ramirez [facility] [address] [place] [address] 07/26/2024 Claire Ramirez [facility] [address] [place] [address] 10/04/2024 Claire Ashley Breast cancer screen ing by mammogram Z12.31 ; History of nicotine dependence Z87.891 and Asymptomatic postmenopausal state Z78.0 [facility] [address] [place] [address] 10/14/2024 Claire Ashley [facility] [address] [place] [address] 11/10/2024 Claire Ashley [facility] [address] [place] [address] 12/27/2024 Claire Ashley Dependent rubor L53. 9 [facility] [address] [place] [address] 01/05/2025 Claire Ashley [facility] [address] [place] [address] 01/12/2025 Claire Ashley [facility] [address] [place] [address] 03/06/2025 Claire Ashley [facility] [address] [place] [address] 03/08/2025 Claire Ashley [facility] [address] [place] [address] 03/09/2025 Claire Ashley Assessments Encounter Date Diagnosis [...] take half a tablet along with 1 nypr-hnu-efkvzil acetaminophen every 6 hours as needed for [...] [address], [place], [address], Insurance Providers Payer Name Payer Address Payer Phone Subscriber Number Group Number Insured Name Patient Relationship to Insured Coverage Start Date Coverage End Date [employer] Dual [address] [address] [place] [address] [phone] [id number] Sindy Lema Self - patient is the [...]
--- OUTSIDE RECORDS SUMMARY | 2025-03-29 11:02 | XMS_ITS | Encounter Summary ---
Author Organization [facility] ([place], [place], [place], [place]) Address [address] [place] [address] Care Team Providers Care Consulting Analyst Name Role Phone Unavailable Primary Care Provider Unavailabl e Encounter Details Date Type Department Care Team (Late st Contact Info) Description 04/18/2021 Transcribed Document [facility] [place] Family Medicine [address] [place] [address] ProviderPantera MD [address] [place] [address] Social History Tobacco Use Types [...] 04/18/2021 11:18 AM CDT Salvador Zamorano M.D. Pending sale to [facility] [place] [address] [place] [address] Re: SINDY NGUYEN Date of Visit: 04/14/2021 Dear Salvador Zamorano [...] is strictly prohibited. Sincerely, EDWARDO SCHULTZ [address] [facility] [address] [place] [address] The following document(s) were included in the letter: April 18, 2021 10:47:49 EDT - (04/18/2021) Discharge Note documented in this encounter Plan of Treatment Not on file documented as of this encounter Visit Diagnoses Not on filedocumented in this encounter
--- OUTSIDE RECORDS SUMMARY | 2025-03-29 11:02 | XMS_ITS | Encounter Summary ---
Author Organization [employer] ([place], [place], [place], [place]) Address [address] [place] [address] Care Team Providers Care Civil Drafting Technician Name Role Phone Unavailable Primary Care Provider Unavailabl e Encounter Details Date Type Department Care Team (Late st Contact Info) Description 04/15/2021 Transcribed Document [facility] [place] [facility] [address] [place] [address] ProviderPantera MD [address] [place] [address] Social History Tobacco Use Types [...] at a later time/day. Notification : Isabella Roy, OCCUPATIONAL THERAPIST NON-EXEMPT - 04/15/2021 12:08 EDT documented in this encounter Plan of Treatment Not on file documented as of this encounter Visit Diagnoses Not on filedocumented in this encounter
--- OUTSIDE RECORDS SUMMARY | 2025-03-29 11:02 | XMS_ITS | Encounter Summary ---
Author Organization [employer] ([place], [place], [place], [place]) Address [address] [place] [address] Care Team Providers Care Garden Equipment Mechanic Name Role Phone Unavailable Primary Care Provider Unavailabl e Encounter Details Date Type Department Care Team (Late st Contact Info) Description 04/18/2021 Transcribed Document [facility] [place] [address] [place] [address] ProviderPantera MD [address] [place] [address] Social History Tobacco Use Types [...]
--- OUTSIDE RECORDS SUMMARY | 2025-03-29 11:02 | XMS_ITS | Encounter Summary ---
Author Organization [employer] ([place], [place], [place], [place]) Address [address] [place] [address] Care Team Providers Care Bulking Machine Operator Name Role Phone Unavailable Primary Care Provider Unavailabl e Encounter Details Date Type Department Care Team (Late st Contact Info) Description 04/18/2021 Transcribed Document [facility] [place] [address] [place] [address] ProviderPantera MD [address] [place] [address] Social History Tobacco Use Types Packs/Day Years Used Date Smoking Tobacco: Never Assessed Comments Unknown Sex and Gender Information Value Date Recorded Sex Assigned at Not on file Legal Sex Female 7:22 PM CDT Gender Identity Not on file Sexual Orientation Not on file documented as of this encounter Miscellaneous Notes * Cerner Conversion Note - Pantera ProviderMD - 04/18/2021 5:00 AM CDT Chart Check - Review Order Profile Entered On: 04/18/2021 3:54 EDT Performed On: 04/18/2021 5:00 EDT by Daphne Snell RN Chart Check Powerplans Initiated/Discontinued as Appropriate : Yes All Active Orders Reviewed : Yes Daphne Snell RN - 04/18/2021 3:54 EDT Electronically signed by [facility] Conversion Pricing Lead Cerner at 01/02/2023 6:20 PM CDT documented in this encounter Plan of Treatment Not on file documented as of this encounter Visit Diagnoses Not on filedocumented in this encounter
--- OUTSIDE RECORDS SUMMARY | 2025-03-29 11:02 | XMS_ITS | Encounter Summary ---
Author Organization [employer] ([place], [place], [place], [place]) Address [address] [place] [address] Care Team Providers Care Maple Syrup Maker Name Role Phone Unavailable Primary Care Provider Unavailabl e Encounter Details Date Type Department Care Team (Late st Contact Info) Description 04/18/2021 Transcribed Document [facility] [place] [address] [place] [address] ProviderPantera MD [address] [place] [address] Social History Tobacco Use Types Packs/Day Years Used Date Smoking Tobacco: Never Assessed Comments Unknown Sex and Gender Information Value Date Recorded Sex Assigned at Not on file Legal Sex Female 7:22 PM CDT Gender Identity Not on file Sexual Orientation Not on file documented as of this encounter Miscellaneous Notes * Cerner Conversion Note - Pantera Tineo MD - 04/18/2021 3:04 PM [place] [address] SINDY NGUYEN :1945 Visit Time:04/14/2021 Your Visit Summary Your Care Team Admitting Physician - RODRIGO BASURTO DO-PAPA Attending Physician - TATYANA MEDINA MD Primary Care Physician - DENNIS ZAMORANO (REF)MD-INT Referring Physician - SIMON, NOT LISTED Your Diagnosis GI bleed These Are Your Goals Patient Discharge Goal Patient Discharge Goal: Home What to do next Follow-Up Appointments Follow Up with ABE العراقي When 05/09/2021 02:45 PM EDT Comments regarding ureteral dilation seen on imaging at [facility] Where: [address] [facility] [address] [place] [address]- Business (1) Follow Up with DENNIS ZAMORANO [...] [address] [place] [address] Business (1) Medications What How Much When [...] (Qnasl 80 mcg/ inh nasal spray) 2 [place](s) Nasal Every Day as needed for Nasal [...] that you work with a diet and nutritionist public health (dietitian). What are tips for following this [...] made with white flour. Waffles, pancakes, and Mexican toast. Bagels. Pretzels. Kaia toast, zwieback, and matzoh. Cooked and dried cereals that do not contain whole grains, added fiber, seeds, or dried fruit. Cornmeal. [place]. Hot and cold cereals made with refined [...] Sports drinks. Herbal tea. Fats and oils [place] oil, canola oil, sunflower oil, flaxseed oil, [...] breads and crackers. Multigrain breads and crackers. Ipswich bread. Whole grain or multigrain cereals. Cereals with nuts, raisins, or coconut. Bran. Coarse wheat cereals. Granola. High-fiber cereals. Cornmeal or corn bread. Whole grain pasta. Wild or brown rice. Quinoa. Popcorn. Buckwheat. Wheat germ. Vegetables Potato skins. Raw or undercooked vegetables. All beans and calles sprouts. Cooked greens. [place]. Peas. Cabbage. Beets. Broccoli. Bartlett sprouts. Cauliflower. Mushrooms. Onions. Peppers. Parsnips. Okra. [...] are not allowed. Seasoning and other foods [place] tortilla chips. Soups made with vegetables or [...] provider. Document Revised: 12/23/2019 Document Reviewed: 11/03/2017 [employer] [facility] Patient Education ?? 2020 [place]. Sepsis, Diagnosis, Adult Sepsis is a serious [...] these instructions at home: Medicines ??? Take yezk-hvm-kwrtvkz and prescription medicines only as told by [...] provider. Document Revised: 04/08/2019 Document Reviewed: 04/08/2019 [facility] Patient Education ?? 2020 [employer] [facility] [employer] Gastrointestinal Bleeding Gastrointestinal (GI) bleeding is [...] Follow these instructions at home: ??? Take grbo-vto-pijvbrg and prescription medicines only as told by [...] provider. Document Revised: 04/13/2019 Document Reviewed: 04/13/2019 [employer] Patient Education ?? 2020 [facility] [facility] [employer] Emergency Awareness and Preventative Care STROKE [...] Assistance with quitting is available by contacting 1-325-SMMJ-NOW. This is a free resource providing counseling, support, and referral. Or you may contact your personal physician. National Suicide Prevention Lifeline: The National Suicide Prevention [...] range between ( 0.0 and 7.0 ) [place] #: 1.39 K/uL -- Normal range between ( 0.16 and 1.00 ) Eos #: 0.02 x10(3)/uL -- Normal range between ( 0.00 and 0.80 ) [place] %: 8.8 % -- Normal range between [...] was given the opportunity to ask questions. Patient/Division Manager Name: Patient/Division Manager Signature: Relationship to Patient: Clinician/Hospital Division Manager Signature: Date: documented in this encounter Plan of Treatment Not on file documented as of this encounter Visit Diagnoses Not on filedocumented in this encounter
--- OUTSIDE RECORDS SUMMARY | 2025-03-29 11:02 | XMS_ITS | Clinical Summary ---
Author Organization [facility] Address [address] [place] [address] Phone Care Team Providers Care Employee Benefits Coordinator Name Role Phone Greg Brar MD Unavailable [phone] James Nielsen MD Unavailable [phone] Sharon Roa MD Unavailable [phone] Salvador Zamorano MD Primary Care Provider [phone] Allergies Active Allergy Reactions Criticality Noted Date [...] 30 Tab 2 08/20/20 15 Active methen-m.blue-s.ph bb-nbqhi-mfc 118-10-40.8-36 mg Oral Capsule Take 1 Tab [...] Type 2 diabetes mellitus without complication, unspecified fpc insulin use status Take 1 Tab by [...] complication, without long-term current use of insulin ([facility]) Take 1 Tab by mouth 2 times [...] MENISCECTOMY CHONDROPLASTY; Surgeon: Jose Pope MD; Location: [facility] MAIN OR; Service: Orthopedics CARDIAC CATHETERIZATION Medical [...] - 1-dose 75+ series) 2021 COVID-19 Vaccine (2023- season) 2024 Influenza Vaccine (#1) 2025 7, 06/24/2016, 07/26/2015 (Declined), Additional history exists Bone [...] Component 6.3( 7 2:39 PM EDT) No Givens, Tamiko Toshia, RMA Medical Devices Implanted Type Area Area Sales Manager Device Identifier Shelf Expiration Date Model / [...] [facility] Hep C Ab Negative Negative [facility] Blood specimen (specimen) UPPER LIMB STRUCTURE / Unknown 09/26/2016 11:46 AM EST 09/26/2016 8:13 PM EST Ely Carpenter MD CHEMISTRY ORDERABLES Edited [facility] - Final Performing Organization Address [facility] de Phone Number [facility] [address] [place] [address] * (ABNORMAL) LIPID SCREEN (09/26/2016 11:46 AM EST) Cholesterol 174 <=200 mg/dL [facility] Comment: < 200 Desirable 200 - 239 Borderline High >= 240 High Triglyceride 165(H) <=150 mg/dL [facility] Comment: < 150 Normal 150 - 199 Borderline High 200 - 499 High >= 500 Very High HDL 65 >=40 mg/dL [facility] Comment: > 60 Optimal 40 - 60 Acceptable < 40 Low LDL Calculated 76 <=100 mg/dL [facility] Comment: < 100 Optimal 100 - 129 Near or above optimal 130 - 159 Borderline High 160 - 189 High >= 190 Very High Blood specimen (specimen) UPPER LIMB STRUCTURE / Unknown 09/26/2016 11:46 AM EST 09/26/2016 8:13 PM EST Ely Carpenter MD CHEMISTRY ORDERABLES Edited [facility] - Final Performing Organization Address [facility] de Phone Number [facility] [address] [place] [address] * (ABNORMAL) COMPREHENSIVE METABOLIC PANEL (09/26/2016 11:46 AM EST) Sodium 142 136 - 145 mmol/L [facility] Potassium 5.2(H) 3.5 - 5.0 mmol/L [facility] Chloride 101 98 - 107 mmol/L [facility] Total CO2 30(H) 22 - 29 mmol/L [facility] Anion Gap 11 7 - 16 mmol/L [facility] Calcium 9.7 8.8 - 10.2 mg/dL [facility] Glucose Lvl 115(H) 82 - 100 mg/dL [facility] BUN 16 8 - 23 mg/dL [facility] Creatinine 0.81 0.51 - 1.30 mg/dL [facility] Albumin 4.2 3.2 - 4.6 gm/dL [facility] Total Protein 7.1 6.4 - 8.3 gm/dL [facility] Bili Total 0.2 0.1 - 1.3 mg/dL [facility] AST 15 <=40 IU/L [facility] ALT 14 <=41 IU/L [facility] Alk Phos 90 35 - 104 IU/L [facility] GFR Afr Am >60 [facility] GFR Non Afr Am >60 [facility] Blood specimen (specimen) UPPER LIMB STRUCTURE / Unknown 09/26/2016 11:46 AM EST 09/26/2016 8:13 PM EST us Ely Carpenter MD CHEMISTRY ORDERABLES Edited Re sult - Final [facility] [address] [place] [address] * CT CHEST W CONTRAST (01/01/2015 2:47 [...] CONTRAST Jan 01, 2015 02:47:16 PM HISTORY: 786.4-Hiiqj-JLZ-9-CM Comparison 04/23/2014. Technical 75 cc Isovue-370 Previously [...] CONTRAST Jan 01, 2015 02:47:16 PM HISTORY: 786.5-Bpoln-KKV-9-CM Comparison 04/23/2014. Technical 75 cc Isovue-370 Previously [...] Code jot stat us Ely Carpenter MD IM CT ORDERABLES Final Result * DX BONE [...] Gimenez PA-C, CCD on 04/01/2013 1:40:00 PM. us Devendra Smith MD IMG DEXA ORDERABLES Final Resul t from Last 3 Months or Most Recently Relevant to Health Maintenance Insurance [facility] [employer] [place] [address] [facility] [employer] [place] [address] HU[employer]NA MEDICARE PPO MR Advance Directives For more information, please contact: [phone] * Full Code (Latest Code Status on File) Date Activated Date Inactivated Comments 04/18/2015 8:32 AM 04/20/2015 6:29 PM * Full Code Date Activated Date Inactivated Comments 01/02/2015 10:12 PM 01/03/2015 9:25 PM * Full Code Date Activated Date Inactivated Comments 07/03/2014 2:33 AM 07/04/2014 6:32 PM * Full Code Date Activated Date Inactivated Comments 04/24/2014 2:19 AM 04/25/2014 8:45 PM Care Teams Employee Benefits Coordinator Relationship Specialty Start Date End Date Sharon Rao MD [address] [facility] [place] [address] PCP - Hematology/Oncology Internal Medicine-Medical Oncology 07/16/15 Salvador Zamorano MD [address] [place] [address] [address] [place] [address] PCP - General Internal Medicine 04/21/18 Greg Brar MD Internal Medicine-Gastroentero logy 03/18/13 James Nielsen MD [address] [facility] [place] [address] Internal Medicine-Cardiovascul ar Disease 02/14/15
--- OUTSIDE RECORDS SUMMARY | 2025-03-29 11:02 | XMS_ITS | Encounter Summary ---
Author Organization [employer] ([place], [place], [place], [place]) Address [address] [place] [address] Care Team Providers Care Railway Engineer Name Role Phone Unavailable Primary Care Provider Unavailabl e Encounter Details Date Type Department Care Team (Late st Contact Info) Description 04/15/2021 Transcribed Document [facility] [place] [address] [place] [address] ProviderPantera MD [address] [place] [address] Social History Tobacco Use Types [...] 04/15/2021 12:03 EDT Electronically signed by Major [facility] Conversion Band Head Saw Operator Cerner at 01/02/2023 6:03 PM CDT documented in this encounter Plan of Treatment Not on file documented as of this encounter Visit Diagnoses Not on filedocumented in this encounter
--- OUTSIDE RECORDS SUMMARY | 2025-03-29 11:02 | XMS_ITS | Encounter Summary ---
Author Organization [employer] ([place], [place], [place], [place]) Address [address] [place] [address] Care Team Providers Care Cath Lab Name Role Phone Unavailable Primary Care Provider Unavailabl e Encounter Details Date Type Department Care Team (Late st Contact Info) Description 04/18/2021 Transcribed Document [facility] [place] Family Medicine [address] [place] [address] ProviderPantera MD [address] [place] [address] Social History Tobacco Use Types Packs/Day Years Used Date Smoking Tobacco: Never Assessed Comments Unknown Sex and Gender Information Value Date Recorded Sex Assigned at Not on file Legal Sex Female 7:22 PM CDT Gender Identity Not on file Sexual Orientation Not on file documented as of this encounter Miscellaneous Notes * Cerner Conversion Note - Pantera Tineo MD - 04/18/2021 2:23 PM CDT [facility] Entered On: 04/18/2021 14:25 EDT Performed On: 04/18/2021 14:23 EDT by Vanessa Hilliard, Convention Services Manager Patient Resource Center Provider Status : EST Other Established Provider Name : SALVADOR ZAMORANO Patient Phone Number : [phone] Patient Insurance Type : Medicare Source of [...] at ED : Other Primary Language : Luxembourgish [facility] Comment : Patient needs follow up appointments. Called offices and Salvador Zamorano' office had already closed. Patient to call in AM. Called and scheduled appointment with Dr. العراقي. Follow Up Needed : No Vanessa Hilliard, Convention Services Manager - 04/18/2021 14:23 EDT documented in this encounter Plan of Treatment Not on file documented as of this encounter Visit Diagnoses Not on filedocumented in this encounter
--- OUTSIDE RECORDS SUMMARY | 2025-03-29 11:02 | XMS_ITS | Data Portability ---
Author Organization [facility] Clindeann c, [place]OS [place] CLOSED Address [address] [facility] [address] [place] [address] Assessment No assessment recorded. Plan of Treatment [...] Recorded Time 07/02/20 18 Urodynamics Interpretation completed [facility] 07/02/2018 12:18:08 07/02/20 18 Urodynamics completed [facility] 07/02/2018 12:25:46 Tonsillectomy completed [facility] 07/02/2018 12:12:59 section completed [facility] 07/02/2018 12:13:17 Cholecystectomy completed [facility] 07/02/2018 12:13:31 Urinary Bladder completed [facility] 07/02/2018 12:13:50 Total Hysterectomy completed [facility] 07/02/2018 12:14:35 partial resection of colon completed [facility] 07/02/2018 12:15:24 colonoscopy completed [facility] 07/02/2018 12:15:35 Imaging Results None recorded. Procedure Notes None recorded. Medical Equipment None Reported. Allergies Allergen ID Allergen Name Allergen Category Reaction Reaction Severity Criticality Documentation Date Start Date Code Code System Note Provider Name and Address Organization Details Recorded Time 498432 ciproflox acin medicatio n Not available Not available Not available 06/02/2018 2551 [facility] 17:22:47 894294 aripipraz ole medicatio n Not available Not available Not available 06/02/2018 67093 [facility] 17:23:04 456951 phenazopy ridine medicatio n Not available Not available Not available 06/02/2018 8120 [facility] 17:23:15 Medications Name Sig Start [...] Updated DateTime 07/02/2018 165.1 cm 32.1 kg/m2 15380.33 g Manda Horta [facility] 07/02/2018 12:10:38 Social History Question Answer Notes LastModified by Organizat ion Details LastModified Time Tobacco Smoking Status Current Every Day Smoker 1/2 pack/day Manda Horta [facility] 07/02/2018 12:12:31 Marital Status Information not [...] available 2017 12:12:02 Medical History Condition Response Kidney Stones Y Depression Y Anxiety Disorder Y Arthritis Y Acid Reflux (GERD) Y High Cholesterol Y Allergies/Hayfever Y False Teeth Y Chronic Obstructive Pulmonary Disease Y Asthma Y Sleep Apnea Y Thyroid Disorder Y Gynecological HistoryNo gynecological history recorded. Obstetrics History GPAL:G 0 P 0 0 0 0 Past Encounters Encounter ID Performer Location Encounter Start Date Encounter Closed Date Diagnosis/Indication Diagnosis SNOMED-CT Code Diagnosis ICD10 Code Diagnosis Note [id number] CHINTAN PRICE MD [facility] [address] [place] [address] 07/02/2018 10:02:51 07/02/2018 11:02:09 Urge incontinence of urine 00417858 N39.41 Health Concerns Section Related Observation LastModified by Organization Detai ls LastModified Time None Recorded Concern Status LastModified by Organization Details LastModified Time None Recorded Advance Directives Directive None Recorded Payers Insurance Date Sequence Insurance Name Policy Number Policy Lopez Covered Member ID Lopez Member ID Guarantor Name 05/06/2021 2 PASSPORT BY [facility] (MEDICAID REPLACEMENT - HMO) MEDICAID Sindy Augustin [id number] Sindy Augustin 05/06/2021 1 [place] Sindy Augustin [id number] Sindy Augustin OBGyn Episode No OBEpisode recorded.
--- OUTSIDE RECORDS SUMMARY | 2025-03-29 11:02 | XMS_ITS | Encounter Summary ---
Author Organization [employer] ([place], [place], [place], [place]) Address [address] [place] [address] Care Team Providers Care Flume Maker Name Role Phone Unavailable Primary Care Provider Unavailabl e Encounter Details Date Type Department Care Team (Late st Contact Info) Description 04/14/2021 Transcribed Document [facility] [place] [address] [place] [address] ProviderPantera MD [address] [place] [address] Social History Tobacco Use Types [...]
--- OUTSIDE RECORDS SUMMARY | 2025-03-29 11:02 | XMS_ITS | Encounter Summary ---
Author Organization [employer] ([place], [place], [place], [place]) Address [address] [place] [address] Care Team Providers Care Oil House Attendant Name Role Phone Unavailable Primary Care Provider Unavailabl e Encounter Details Date Type Department Care Team (Late st Contact Info) Description 04/15/2021 Transcribed Document [facility] [place] [address] [place] [address] ProviderPantera MD [address] [place] [address] Social History Tobacco Use Types [...] and GERD. [facility] positive stool guaiac. She reports she has had diarrhea for 1 week, with lower abdominal cramping as well as some vomiting. She states she was also experiencing some dizziness. She was initially evaluated at [facility], admitted over night for observation and released the next day. She reports her vomiting subsided but continued to have diarrhea and was then evaluated at [facility]. She was found to have TENA, and [...] PRN Qnasl 80 mcg/inh nasal spray, 2 [place], Nasal, Daily, PRN rosuvastatin 20 mg oral [...] Lymph # 1.63 x10(3)/uL 04/15/2021 00:49 EDT Gage % 8.8 % 04/15/2021 00:49 EDT Gage # 1.39 K/uL (High) 04/15/2021 00:49 EDT [...]
--- OUTSIDE RECORDS SUMMARY | 2025-03-29 11:02 | XMS_ITS | Referral Summary ---
Author Organization [employer] ([place], [place], [place], [place]) Address [address] [place] [address] Care Team Providers Care Nurses Supervisor Name Role Phone Unavailable Primary Care [...]
--- OUTSIDE RECORDS SUMMARY | 2025-03-29 11:02 | XMS_ITS | Encounter Summary ---
Author Organization [employer] ([place], [place], [place], [place]) Address [address] [place] [address] Care Team Providers Care International Sales Representative Name Role Phone Unavailable Primary Care Provider Unavailabl e Encounter Details Date Type Department Care Team (Late st Contact Info) Description 04/18/2021 Transcribed Document [facility] [place] [address] [place] [address] ProviderPantera MD [address] [place] [address] Social History Tobacco Use Types [...] Tineo MD - 04/18/2021 11:18 AM CDT [address] [place] [address] Patient Copy Patient Information: Name: SINDY NGUYEN Current Date: 04/18/2021 11:18:07 : 1945 Patient Address: [address] [place] [address] [facility] [address] Patient Attending Physician: TATYANA MEDINA MD Primary Care Provider: SIMON, NOT LISTED Primary Care Provider Phone: Discharge Diagnosis: GI bleed Comment: Follow-up Instructions: With: Address: When: DENNIS ZAMORANO [address] [place] [address] [place] [address] Business (1) Within 2 to 4 days Comments: at the outside hospital you had some abnormalities on CT HEAD. Please discuss this with Dr. Zamorano as these are chronic appearing changes and he needs to follow. Nothing emergent With: Address: When: ABE العراقي [address] [place] [address], [address] [place] [address] [facility] [place] Within 2 to 4 weeks Comments: regarding [...] nasal (Qnasl 80 mcg/inh nasal spray) 2 [place](s) Nasal Every Day as needed Nasal Congestion. [...] Assistance with quitting is available by contacting 8-948-INHONOW. This is a free resource providing counseling, [...] Be sure to sign up for the [employer] patient portal, which gives you 06/04 access to your medical information ??? including these discharge instructions ??? using your computer, smartphone, or tablet. Just go to [email or web address] to get started. Questions? Call . [facility] would like to thank you for allowing us to assist you with your healthcare needs. YANCY Quarles BRENDA K, (or lifeline representatives) have received the above patient education materials/instructions and have verbalized understanding: Patient Signature _ Date/Time Patient Welder Oxyhydrogen Signature (if needed) Date/Time Clinician/Hospital Welder O[employer]hydrogen Signature (if needed) Date/Time Electronically signed by Major [facility] Conversion Hammer Adjuster Herbner at 01/02/2023 6:09 PM CDT documented in this encounter Plan of Treatment Not on file documented as of this encounter Visit Diagnoses Not on filedocumented in this encounter
--- OUTSIDE RECORDS SUMMARY | 2025-03-29 11:02 | XMS_ITS | Encounter Summary ---
Author Organization [employer] ([place], [place], [place], [place]) Address [address] [place] [address] Care Team Providers Care Business Services Associate Name Role Phone Unavailable Primary Care Provider Unavailabl e Encounter Details Date Type Department Care Team (Late st Contact Info) Description 04/16/2021 Transcribed Document [facility] [place] Family Medicine [address] [place] [address] ProviderPnatera MD [address] [place] [address] Social History Tobacco Use Types Packs/Day Years Used Date Smoking Tobacco: Never Assessed Comments Unknown Sex and Gender Information Value Date Recorded Sex Assigned at Not on file Legal Sex Female 7:22 PM CDT Gender Identity Not on file Sexual Orientation Not on file documented as of this encounter Miscellaneous Notes * Cerner Conversion Note - Pantera Tineo MD - 04/16/2021 12:58 PM CDT [facility] Authorization Entered On: 04/16/2021 12:59 EDT Performed On: 04/16/2021 12:58 EDT by NICOLÁS LUIS RN Primary Insurance Authorization Authorization and Policy Numbers : Insurance 1 Health Plan: [employer] PPO Policy Number: [id number] Authorization Number: Insurance Primary Name : [employer] CHOICE PPO Policy Number: [id number] Authorization Status-Primary : Awaiting callback Reference Number-Primary : Pend ref #[id number] Authorized Service Begin Date-Primary : 04/14/2021 EDT Authorization Comments-Primary : IP appr per Sound PA, em the sound pa review to ER Historical Authorization Comments-Primary : Comment 1: Obs appr per IPAS. Per attending PA pt meets for IP status. Ref to Sound PA (NICOLÁS LUIS RN 04/16/2021 12:15) Comment 2: Ref to [employer] (NICOLÁS LUIS RN 04/15/2021 15:15) Comment 3: Pend ref no per Availity, reviewer has access to Cerner (NICOLÁS LUIS RN 04/15/2021 09:26) NICOLÁS LUIS RN - 04/16/2021 12:58 EDT Electronically signed by [facility] Conversion Custom Seamstress Cerner at 01/02/2023 6:26 PM CDT documented in this encounter Plan of Treatment Not on file documented as of this encounter Visit Diagnoses Not on filedocumented in this encounter
--- OUTSIDE RECORDS SUMMARY | 2025-03-29 11:02 | XMS_ITS | Data Portability ---
Author Organization [place] - [facility] formerly [facility], [facility] Address [address] [place] [address] Assessment Encounter Date Assessment Date Assessment LastModified [...] By Organization Details Last Modified Time 03/07/2024 [id number] back pain: care instructions abux Not available 03/07/2024 16:17:54 learning about relief for back pain abux Not available 03/07/2024 16:17:54 Reason for Referral None Reported. Problems Name Problem SNOMED Code Status Onset Date Resolution Date Notes Provider Name and Address Organization Details Recorded Time Radiculopat hy due to lumbar interverteb ral disc disorder 1222243328442 05 Active 2023 KATIE GARAY null, [place] - [facility] 09:47:58 Lumbar radiculopat 331344919 Active 2023 Benja Hinojosa MD [address] [facility],[place] [address], [place], [address], [place] [facility] 16:17:48 Degeneratio n of lumbar interverteb ral disc 86227557 Active 2023 Benja Hinojosa MD [address] ,[place] [address], [place], [address], [place] [facility] 16:17:49 Problem Notes None recorded. Procedures Surgical History Date Name Laterality Status Provider Name and Address Organization Details Recorded Time 03/07/20 Pump Refill completed Benja Hinojosa MD [address] [facility],[place] [address], [place], [address], [place] [facility] 03/07/2024 [...] Body mass index (BMI) Body weight Systolic And Diastolic Provider Name and Address Organization Details Last Updated DateTime 4 78 /min 96 % 96 % 165.1 cm 27.1 kg/m2 76503.5 6 g 136/78 mm[Hg] MAXIMO STERLING [place] [facility] 4 14:18:44 Social History Question Answer Notes LastModified by Wheeldo Details LastModified Time Tobacco Smoking Status Current Every Day Smoker MAXIMO STERLING null, [place] - [facility] 03/07/2024 14:13:48 In The 14 Days Before Symptom Onset, Have You Had Close Contact With A Laboratory-confirm ed COVID-19 While That Case Was Ill? No [email or web address] Information n ot available 03/07/2024 In The 14 Days Before Symptom Onset, Have You Had Close Contact With A Person Who Is Under Investigation For COVID-19 While That Person Was Ill? No [email or web address] Information not available 03/07/2024 Have You Been To An Area Known To Be High Risk For COVID-19? No [email or web address] Information not available 03/07/2024 Sex: Female Functional Status Question Answer Note LastModified by Wheeldo Details LastModified Time Do you use any illicit or recreational drugs? No [email or web address] Information not available 03/07/2024 Do you or have you ever used any other forms of tobacco or nicotine? No [email or web address] Information not available 03/07/2024 What is your level of alcohol consumption? None [email or web address] Information not available 03/07/2024 Mental Status None recorded. Family History Nothing Reported. Medical History Condition Response Coronary Artery Disease N Gout N Hernia N Head Trauma/Injury N Thyroid Problems Y Depression N COPD Y Anemia N Heart Attack ([place]) N Ulcers N Diabetes Y Anxiety Disorder [...] SNOMED-CT Code Diagnosis ICD10 Code Diagnosis Note [id number] Benja Hinojosa MD [address] [place] [address] 03/07/2024 14:10:22 03/08/2024 06:43:58 Radiculopathy due to lumbar intervertebral disc disorder 4005165301 79673 M51.16 Degenerati on of lumbar intervertebral disc 66972879 M51.36 Lumbar radiculopathy 128 500293 M54.16 Lumbar spondylosis 86321 0009 M47.896 Health Concerns Section Related Observation LastModified by Organization Detai ls LastModified Time None Recorded Concern Status LastModified by Organization Details LastModified Time None Recorded Advance Directives Directive None Recorded Payers Insurance Date Sequence Insurance Name Policy Number Policy Lopez Covered Member ID Lopez Member ID Guarantor Name 03/26/2024 2 [facility] (MEDICAID O) Sindy K Charli [id number] Sindy K Wendy 10/11/2024 1 [employer] (MEDICARE REPLACEMENT/ ADVANTAGE - PPO) Sindy K Wendy [id number] Sindy K Wendy 04/20/2024 2 [place] Sindy K Wendy [id number] Sindy K Wendy 12/02/2024 2 [place] [place] FFS/TRADITIO NAL Sindy K Wendy [id number] Sindy K Wendy 04/05/2024 PAYMENT PLAN Sindy K Wendy 12/02/2024 1 [employer] (MEDICARE REPLACEMENT/ ADVANTAGE - HMO) Sindy K Wendy [id number] Sindy K Wendy Notes Date Note Type [...] surgery/procedure date: Benja Hinojosa MD [address], [address], [place] [facility] 03/07/2024 16:18:24 OBGyn Episode No OBEpisode recorded.
--- OUTSIDE RECORDS SUMMARY | 2025-03-29 11:02 | XMS_ITS | Encounter Summary ---
Author Organization [employer] ([place], [place], [place], [place]) Address [address] [place] [address] Care Team Providers Care Extension Service Agent Name Role Phone Unavailable Primary Care Provider Unavailabl e Encounter Details Date Type Department Care Team (Late st Contact Info) Description 04/19/2021 Transcribed Document [facility] Family Medicine [address] [place] [address] ProviderPantera MD [address] [place] [address] Social History Tobacco Use Types Packs/Day Years Used Date Smoking Tobacco: Never Assessed Comments Unknown Sex and Gender Information Value Date Recorded Sex Assigned at Not on file Legal Sex Female 7:22 PM CDT Gender Identity Not on file Sexual Orientation Not on file documented as of this encounter Miscellaneous Notes * Cerner Conversion Note - Pantera Tineo MD - 04/19/2021 12:49 PM CDT UM Authorization Entered On: 04/19/2021 12:49 EDT Performed On: 04/19/2021 12:49 EDT by CHRIS LARKIN RN Primary Insurance Authorization Authorization and Policy Numbers : Insurance 1 Health Plan: [employer] CHOICE PPO Policy Number: [id number] Authorization Number: Insurance Primary Name : [employer] CHOICE PPO Policy Number: [id number] Authorization Status-Primary : Denial - admission Reference Number-Primary : Pend ref #[id number] Authorized Service Begin Date-Primary : 04/14/2021 EDT Authorization Comments-Primary : [facility] one is pending approval Historical [...]
--- OUTSIDE RECORDS SUMMARY | 2025-03-29 11:02 | XMS_ITS | Encounter Summary ---
Author Organization [employer] ([place], [place], [place], [place]) Address [address] [place] [address] Care Team Providers Care Single Needle Operator Name Role Phone Unavailable Primary Care Provider Unavailabl e Encounter Details Date Type Department Care Team (Late st Contact Info) Description 04/14/2021 Transcribed Document [facility] Family Medicine [address] [place] [address] ProviderPnatera MD [address] [place] [address] Social History Tobacco Use Types Packs/Day Years Used Date Smoking Tobacco: Never Assessed Comments Unknown Sex and Gender Information Value Date Recorded Sex Assigned at Not on file Legal Sex Female 7:22 PM CDT Gender Identity Not on file Sexual Orientation Not on file documented as of this encounter Miscellaneous Notes * Cerner Conversion Note - Pantera Tineo MD - 04/14/2021 11:00 PM CDT Patient: SINDY NGUYEN Age: 75 years Sex: Female : 1945 Associated Diagnoses: None Author: RODRIGO BASURTO, -INT Basic Information Source of history: Self, Medical [...] listed. Denies hematemesis. Patient was admitted to [facility] on 04/12 and discharged on 04/13 for same symptoms and was diagnosed with viral gastroenteritis and dehydration. Patient then presented to [facility] for same symptoms. She was diagnosed [...] Int Units, Oral, 0 Refill(s) Flonase: 1 Trinity, Nostrils Both, Daily, 0 Refill(s) Januvia: 100 [...] Drisdol 50,000 Int Units, Oral Flonase 1 Trinity, Nostrils Both, Daily furosemide 40 mg, PRN, [...] Problem list: Medical Cataract / SNOMED CT 915682613 / Confirmed Heart failure / SNOMED CT 414581416 / Confirmed Hypertension / SNOMED CT 43023087 / Confirmed Hyperlipidemia / SNOMED CT 43755047 / Confirmed Pulmonary embolism / SNOMED CT 53588573 / Confirmed COPD (chronic obstructive pulmonary disease) / SNOMED CT 12929701 / Confirmed Sleep apnea / SNOMED CT 161178493 / Confirmed Tobacco use / SNOMED CT 576860606 / Confirmed GERD - Gastro-esophageal reflux disease / SNOMED CT 6131210662 / Confirmed Renal calculus / SNOMED CT 080999795 / Confirmed Back pain / SNOMED CT 294148574 / Confirmed Arthritis / SNOMED CT 7991662 / Confirmed Fibromyalgia / SNOMED CT 9360698986 / Confirmed Diabetes mellitus type II / SNOMED CT 02787886 / Confirmed Thyroid disease / SNOMED CT 736654915 / Confirmed Migraine / SNOMED CT 79519598 / Confirmed Metabolic encephalopathy / SNOMED CT 73439450 / Confirmed Migraine / SNOMED CT 50801975 / Confirmed Esophageal stricture / SNOMED CT 648912489 / Confirmed Anxiety / SNOMED CT 5337764036 / Confirmed Vitamin D deficiency / SNOMED CT 81434964 / Confirmed Vitamin B 12 deficiency / SNOMED CT 5597965539 / Confirmed Mixed incontinence / SNOMED CT 6406596479 / Confirmed Bipolar 1 disorder / SNOMED CT 3651733352 / Confirmed Major depression / SNOMED CT 0569178112 / Confirmed Insomnia / SNOMED CT 754633829 / Confirmed 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 medications A1c History of mood disorders documented in this encounter Plan of Treatment Not on file documented as of this encounter Visit Diagnoses Not on filedocumented in this encounter
--- OUTSIDE RECORDS SUMMARY | 2025-03-29 11:02 | XMS_ITS | Encounter Summary ---
Author Organization [employer] ([place], [place], [place], [place]) Address [address] [place] [address] Care Team Providers Care Mergers And Acquisitions Attorney Name Role Phone Unavailable Primary Care Provider Unavailabl e Encounter Details Date Type Department Care Team (Late st Contact Info) Description 04/15/2021 Transcribed Document [facility] [place] [facility] [address] [place] [address] ProviderPantera MD [address] [place] [address] Social History Tobacco Use Types [...] Historical ProviderMD - 04/15/2021 2:00 AM CDT Assayer Details Entered On: 04/15/2021 4:24 EDT Performed [...]
--- OUTSIDE RECORDS SUMMARY | 2025-03-29 11:02 | XMS_ITS | Encounter Summary ---
Author Organization [facility] ([place], [place], [place], [place]) Address [address] [place] [address] Care Team Providers Care Coat Presser Name Role Phone Unavailable Primary Care Provider Unavailabl e Encounter Details Date Type Department Care Team (Late st Contact Info) Description 04/18/2021 Transcribed Document [facility] Family Medicine [facility] [place] [address] ProviderPantera MD [address] [place] [address] Social History Tobacco Use Types [...] Health Plan: [employer] CHOICE PPO Policy Number: [id number] Authorization Number: Insurance Primary Name : [employer] CHOICE PPO Policy Number: [id number] Authorization Status-Primary : Denial - admission Reference Number-Primary : Pend ref #[id number] Authorized Service Begin Date-Primary : 04/14/2021 EDT Authorization Comments-Primary : Discussed with Maliha Barksdale agreed to attempt p2p. Called Shelli at and setup for 04/18@2pm with Dr Keller Historical Authorization Comments-Primary : Comment 1: Per VM From Himanshu LUCERO (CHRIS LARKIN RN 04/17/2021 16:06) Comment 2: IP appr per ben Leon pa review to ER (NICOLÁS LUIS RN 04/16/2021 12:58) Comment 3: Obs appr per IPAS. Per attending PA pt meets for IP status. Ref to Karin PA (NICOLÁS LUIS RN 04/16/2021 12:15) Comment 4: Ref to Xpas (NICOLÁS LUIS RN 04/15/2021 15:15) Comment 5: Pend ref no per Availity, reviewer has access to [employer] (NICOLÁS LUIS RN 04/15/2021 09:26) CHRIS LARKIN RN - 04/18/2021 10:07 EDT documented in this encounter Plan of Treatment Not on file documented as of this encounter Visit Diagnoses Not on filedocumented in this encounter
--- OUTSIDE RECORDS SUMMARY | 2025-03-29 11:02 | XMS_ITS | Encounter Summary ---
Author Organization [employer] ([place], [place], [place], [place]) Address [address] [place] [address] Care Team Providers Care Chief Operator Lock Tender Name Role Phone Unavailable Primary Care Provider Unavailabl e Encounter Details Date Type Department Care Team (Late st Contact Info) Description 04/18/2021 Transcribed Document [facility] [place] [address] [place] [address] ProviderPantera MD [address] [place] [address] Social History Tobacco Use Types [...] that you work with a diet and livestock nutritionist (dietitian). What are tips for following this [...] made with white flour. Waffles, pancakes, and Angolan toast. Bagels. Pretzels. Kaia toast, zwieback, and matzoh. Cooked and dried cereals that do not contain whole grains, added fiber, seeds, or dried fruit. Cornmeal. [place]. Hot and cold cereals made with refined [...] Sports drinks. Herbal tea. Fats and oils [place] oil, canola oil, sunflower oil, flaxseed oil, [...] breads and crackers. Multigrain breads and crackers. [place] bread. Whole grain or multigrain cereals. Cereals with nuts, raisins, or coconut. Bran. Coarse wheat cereals. Granola. High-fiber cereals. Cornmeal or corn bread. Whole grain pasta. Wild or brown rice. Quinoa. Popcorn. Buckwheat. Wheat germ. Vegetables Potato skins. Raw or undercooked vegetables. All beans and calles sprouts. Cooked greens. [place]. Peas. Cabbage. Beets. Broccoli. Alpha sprouts. Cauliflower. Mushrooms. Onions. Peppers. Parsnips. Okra. [...] are not allowed. Seasoning and other foods [place] tortilla chips. Soups made with vegetables or [...] provider. Document Revised: 12/23/2019 Document Reviewed: 11/03/2017 [employer] Patient Education ? 2020 [employer] Gastrointestinal Bleeding Gastrointestinal (GI) bleeding is [...] Follow these instructions at home: ??? Take qpbr-tmr-otiisbq and prescription medicines only as told by [...] provider. Document Revised: 04/13/2019 Document Reviewed: 04/13/2019 [employer] Patient Education ? 2020 [employer] Infectious Disease Sepsis, Diagnosis, Adult Sepsis [...] these instructions at home: Medicines ??? Take etho-grl-tbuhvog and prescription medicines only as told by [...] provider. Document Revised: 04/08/2019 Document Reviewed: 04/08/2019 [employer] Patient Education ? 2020 [employer] documented in this encounter Plan of Treatment Not on file documented as of this encounter Visit Diagnoses Not on filedocumented in this encounter
--- OUTSIDE RECORDS SUMMARY | 2025-03-29 11:03 | XMS_ITS | Encounter Summary ---
Author Organization [employer] ([place], [place], [place], [place]) Address [address] [place] [address] Care Team Providers Care Building Supervisor Name Role Phone Unavailable Primary Care Provider Unavailabl e Encounter Details Date Type Department Care Team (Late st Contact Info) Description 04/17/2021 Transcribed Document [facility] [place] [address] [place] [address] ProviderPantera MD [address] [place] [address] Social History Tobacco Use Types Packs/Day Years Used Date Smoking Tobacco: Never Assessed Comments Unknown Sex and Gender Information Value Date Recorded Sex Assigned at Not on file Legal Sex Female 7:22 PM CDT Gender Identity Not on file Sexual Orientation Not on file documented as of this encounter Miscellaneous Notes * Cerner Conversion Note - Pantera Tineo MD - 04/17/2021 4:06 PM CDT UM Authorization Entered On: 04/17/2021 16:06 EDT Performed On: 04/17/2021 16:06 EDT by CHRIS LARKIN RN Primary Insurance Authorization Authorization and Policy Numbers : Insurance 1 Health Plan: [employer] CHOICE PPO Policy Number: [id number] Authorization Number: Insurance Primary Name : [employer] CHOICE PPO Policy Number: [id number] Authorization Status-Primary : Denial - admission Reference Number-Primary : Pend ref #[id number] Authorized Service Begin Date-Primary : 04/14/2021 EDT Authorization Comments-Primary : Per VM From Himanshu R denied IP Historical Authorization Comments-Primary : Comment 1: IP appr per Alan CARBALLO, em the alan pa review to ER (NICOLÁS LUIS RN 04/16/2021 12:58) Comment 2: Obs appr per IPAS. Per attending PA pt meets for IP status. Ref to Alan CARBALLO (NICOLÁS LUIS RN 04/16/2021 12:15) Comment 3: [...]
--- OUTSIDE RECORDS SUMMARY | 2025-03-29 11:03 | XMS_ITS | Encounter Summary ---
Author Organization [employer] ([place], [place], [place], [place]) Address [address] [place] [address] Care Team Providers Care Signaling Project Engineer Name Role Phone Unavailable Primary Care Provider Unavailabl e Encounter Details Date Type Department Care Team (Late st Contact Info) Description 04/16/2021 Transcribed Document [facility] Radiology [address] [place] [address] Provider, Olga Mott MD Social History Tobacco Use Types Packs/Day Years Used Date Smoking Tobacco: Never Assessed Comments Unknown Sex and Gender Information Value Date Recorded Sex Assigned at Not on file Legal Sex Female 7:22 PM CDT Gender Identity Not on file Sexual Orientation Not on file documented as of this encounter Miscellaneous Notes * Cerner Conversion Note - [facility] Pantera ProviderMD - 04/16/2021 1:30 PM EDT Treatment Intervention, PT Entered On: 04/17/2021 13:28 EDT Performed On: 04/17/2021 10:10 EDT by Derek Rodriguez PHYSICAL THERAPIST NON-EXEMPT General Information, PT Visit Type, PT [...] Up in chair RN/PCT Informed Comment : Nsg: Oliva approved session Treatment End Time : [...] Stand Device : Belt, gait, Other: B SHAREHOLDER Stand to Sit Device : Belt, gait, [...] Tolerance, PT Activity Comment : Poor Derek Rodriguez PHYSICAL THERAPIST NON-EXEMPT - 04/17/2021 [...] PHYSICAL THERAPIST NON-EXEMPT - 04/17/2021 13:18 EDT Snf Goals Mobility/Bed Mobility LTG PT Grid Goal [...] home health. This was relayed to patient's director case management after session. Plan for Treatment : Continue [...] PHYSICAL THERAPIST NON-EXEMPT - 04/17/2021 13:[address] [facility] PT Charges PT Ther Activities Ea 15 Min : 1 Gait Training Each 15 Min : 1 Derek Rodriguez PHYSICAL THERAPIST NON-EXEMPT - 04/17/2021 13:18 EDT documented in this encounter Plan of Treatment Not on file documented as of this encounter Visit Diagnoses Not on filedocumented in this encounter
--- OUTSIDE RECORDS SUMMARY | 2025-03-29 11:03 | XMS_ITS | Encounter Summary ---
Author Organization [employer] ([place], [place], [place], [place]) Address [address] [place] [address] Care Team Providers Care Operations Vice President Name Role Phone Unavailable Primary Care Provider Unavailabl e Encounter Details Date Type Department Care Team (Late st Contact Info) Description 04/16/2021 Transcribed Document [facility] Family Medicine [address] [place] [address] ProviderPantera MD [address] [place] [address] Social History Tobacco Use Types Packs/Day Years Used Date Smoking Tobacco: Never Assessed Comments Unknown Sex and Gender Information Value Date Recorded Sex Assigned at Not on file Legal Sex Female 7:22 PM CDT Gender Identity Not on file Sexual Orientation Not on file documented as of this encounter Miscellaneous Notes * Cerner Conversion Note - Pantera Tineo MD - 04/16/2021 3:47 PM CDT On Going Discharge Planning Entered On: 04/16/2021 15:54 EDT Performed On: 04/16/2021 15:47 EDT by Ramón Hurst, TEACHER SPECIALIST NON-EXEMPT Care Management Progress Note Discharge Arrangements : Patient Post-Acute Information Patient Name: SINDY NGUYEN [facility]: [id number] Gender: Female : [birth year] Age: 75 Years No Post-Acute Placement(s) Listed No Post-Acute Service(s) Listed No [place] Referral(s) Listed Discharge Options Discussed with Patient : Acute rehabilitation, Discharge transportation, DME, Home Health, [facility], Short term rehabilitation Barriers to Discharge Identified : Clinical Condition of Patient Barriers to Discharge Unresolved : Clinical Condition of Patient Patient Discharge Goal : Home Patient Offered Choice/Affiliations Explained : Yes Designation of Choice Signed : Yes List/Info Provided Pt/Fam/Support Person : Home health Were Referrals Sent to Post Acute Providers : Yes [facility] Quality Web Info Shared w Pt/Fam : Yes Discharge Plan Comment : Pt agreeable to HH services, but declines placement. Did you Attend Multidisciplinary Rounds? : Yes Ramón Hurst, TEACHER SPECIALIST NON-EXEMPT - 04/16/2021 15:47 EDT Narrative Progress [...] for rehab. HH referral was sent via [employer]. [facility] Provider form was completed. CM notified hospitalist of pt's decision for HH services. Plan is to return home with HH services. Pt's daughter will provide transportation. CM will continue to follow. Ramón Hurst TEACHER SPECIALIST NON-EXEMPT - 04/16/2021 15:47 EDT documented in this encounter Plan of Treatment Not on file documented as of this encounter Visit Diagnoses Not on filedocumented in this encounter
--- OUTSIDE RECORDS SUMMARY | 2025-03-29 11:03 | XMS_ITS | Encounter Summary ---
Author Organization [employer] ([place], [place], [place], [place]) Address [address] [place] [address] Care Team Providers Care Communications Coordinator Name Role Phone Unavailable Primary Care Provider Unavailabl e Encounter Details Date Type Department Care Team (Late st Contact Info) Description 04/17/2021 Transcribed Document [facility] [place] Family Medicine [address] [place] [address] ProviderPantera MD [address] [place] [address] Social History Tobacco Use Types Packs/Day Years Used Date Smoking Tobacco: Never Assessed Comments Unknown Sex and Gender Information Value Date Recorded Sex Assigned at Not on file Legal Sex Female 7:22 PM CDT Gender Identity Not on file Sexual Orientation Not on file documented as of this encounter Miscellaneous Notes * Cerner Conversion Note - Pantera Tineo MD - 04/17/2021 4:50 PM CDT On Going Discharge Planning Entered On: 04/17/2021 16:55 EDT Performed On: 04/17/2021 16:50 EDT by Ramón Hurst, MANAGER OF BUSINESS NON-EXEMPT Care Management Progress Note Discharge Arrangements : Patient Post-Acute Information Patient Name: SINDY NGUYEN [facility]: [id number] Gender: Female : [birth year] Age: 75 Years No Post-Acute Placement(s) Listed No Post-Acute Service(s) Listed No Curaspan Referral(s) Listed Discharge Options Discussed with Patient : Acute rehabilitation, Discharge transportation, DME, Home Health, long-term, Short term rehabilitation Barriers to Discharge Identified : Clinical Condition of Patient Barriers to Discharge Unresolved : Clinical Condition of Patient Patient Discharge Goal : Home Patient Offered Choice/Affiliations Explained : Yes Designation of Choice Signed : Yes List/Info Provided Pt/Fam/Support Person : Durable medical equipment, Home health Were Referrals Sent to Post Acute Providers : Yes [facility] Quality Web Info Shared w Pt/Fam : Yes Is the Patient Meeting Medical Necessity : Yes Physician Agreeable to Move Forward with D/C Plan? : Yes Discharge Plan Comment : Home with home health & walker Did you Attend Multidisciplinary Rounds? : Yes Ramón Hurst MANAGER OF BUSINESS NON-EXEMPT - 04/17/2021 16:50 EDT Narrative Progress Note Narrative Progress Note : Pt was seen at bedside. She still plans to return home with home health services. CM did get a call from [facility] & they have accepted pt. They will start services on 04/19/2021 as D/C is anticipated for tomorrow. [facility] will need final order in [facility] once D/C is confirmed. PT has recommended a walker & pt wanted this through [facility]. A referral to [facility] was sent via [employer]. CM confirmed they got referral for walker [...] for rehab. HH referral was sent via [employer]. [facility] Choice Provider form was completed. CM notified hospitalist of pt's decision for HH services. Plan is to return home with services. Pt's daughter will provide transportation. CM will continue to follow. Ramón Hurst MANAGER OF BUSINESS NON-EXEMPT - 04/16/21 15:54:11 Ramón Hurst SOCIAL WORKER NON-EXEMPT - 04/17/2021 16:50 EDT documented in this encounter Plan of Treatment Not on file documented as of this encounter Visit Diagnoses Not on filedocumented in this encounter
--- OUTSIDE RECORDS SUMMARY | 2025-03-29 11:03 | XMS_ITS | Encounter Summary ---
Author Organization [employer] ([place], [place], [place], [place]) Address [address] [place] [address] Care Team Providers Care Acid Leveler Name Role Phone Unavailable Primary Care Provider Unavailabl e Encounter Details Date Type Department Care Team (Late st Contact Info) Description 04/17/2021 Transcribed Document [facility] [place] Family Medicine [address] [place] [address] ProviderPantera MD [address] [place] [address] Social History Tobacco Use Types [...] Daphne Snell RN - 04/17/2021 5:53 EDT documented in this encounter Plan of Treatment Not on file documented as of this encounter Visit Diagnoses Not on filedocumented in this encounter
--- OUTSIDE RECORDS SUMMARY | 2025-03-29 11:03 | XMS_ITS | Encounter Summary ---
Author Organization [employer] ([place], [place], [place], [place]) Address [address] [place] [address] Care Team Providers Care Livestock Sales Representative Name Role Phone Unavailable Primary Care Provider Unavailabl e Encounter Details Date Type Department Care Team (Late st Contact Info) Description 04/16/2021 Transcribed Document [facility] [place] Family Medicine [facility] [place] [address] ProviderPantera MD [address] [place] [address] Social History Tobacco Use Types [...] Recorded Isabella Spring OCCUPATIONAL THERAPIST NON-EXEMPT - 04/17/2021 10:52 EDT General Status [...] : Supervision or set-up Isabella Spring OCCUPATIONAL YAIMA NON-EXEMPT - 04/17/2021 10:52 EDT Functional Mobility Mobility Grid Supine to Sit : Supervision/set-up Sit to Stand : Supervision/set-up (Comment: CGA [Isabella Spring OCCUPATIONAL THERAPIST NON-EXEMPT - 04/17/2021 10:52 EDT] ) Isabella Spring OCCUPATIONAL THERAPIST NON-EXEMPT - 04/17/2021 10:52 EDT Plan of Care, OT OT Tx Plan/Goals Established w Patient : Yes Isabella Spring OCCUPATIONAL YAIMA NON-EXEMPT - 04/17/2021 12:20 EDT Fpc Goals, OT Grooming LTG Grid Goal #1 [...] or set up Equipment : Long Handled Junior Java Developer, Sock aid Date to Meet : 04/30/2021 [...]
--- OUTSIDE RECORDS SUMMARY | 2025-03-29 11:03 | XMS_ITS | Encounter Summary ---
Author Organization [employer] ([place], [place], [place], [place]) Address [address] [place] [address] Care Team Providers Care Customer Service Administrator Name Role Phone Unavailable Primary Care Provider Unavailabl e Encounter Details Date Type Department Care Team (Late st Contact Info) Description 04/16/2021 Transcribed Document [facility] [address] [place] [address] ProviderPantera MD [address] [place] [address] Social History Tobacco Use Types [...] Celeste Trujillo RN - 04/16/2021 15:22 EDT Electronically signed by Major [facility] Conversion Water Ski Assembler Cerner at 01/02/2023 6:10 PM CDT documented in this encounter Plan of Treatment Not on file documented as of this encounter Visit Diagnoses Not on filedocumented in this encounter
--- OUTSIDE RECORDS SUMMARY | 2025-03-29 11:03 | XMS_ITS | Encounter Summary ---
Author Organization [employer] ([place], [place], [place], [place]) Address [address] [place] [address] Care Team Providers Care Calliope Player Name Role Phone Unavailable Primary Care Provider Unavailabl e Encounter Details Date Type Department Care Team (Late st Contact Info) Description 04/16/2021 Transcribed Document [facility] [place] Family Medicine [address] [place] [address] ProviderPantera MD [address] [place] [address] Social History Tobacco Use Types Packs/Day Years Used Date Smoking Tobacco: Never Assessed Comments Unknown Sex and Gender Information Value Date Recorded Sex Assigned at Not on file Legal Sex Female 7:22 PM CDT Gender Identity Not on file Sexual Orientation Not on file documented as of this encounter Miscellaneous Notes * Cerner Conversion Note - Pantera Tineo MD - 04/16/2021 9:22 AM CDT Initial Discharge Planning Entered On: 04/16/2021 9:30 EDT Performed On: 04/16/2021 9:22 EDT by Ramón Hurst CUSTOMER SUPPORT TECHNICIAN NON-EXEMPT Initial Assessment I Previously Documented Living Environment : No qualifying data available. Living Situation : Home Patient Lives With : Alone Is the Patient a Caregiver at Home? : No Emergency Contact #1 : Celesteowen Rios Emergency Contact #1 Emergency Contact #1 Relationship : Daughter Emergency Contact #2 : Mariana Tee Emergency Contact #2 Emergency Contact #2 Relationship : Daughter Enter Doctors Name : Salvador Zamorano MD Does Patient have PCP Listed? : Yes Patient's Home Caregiver Name/Relationship : Celetse/daughter Patient's Home Caregiver Is Guardianship Needed : No Ramón Hurst CUSTOMER SUPPORT TECHNICIAN NON-EXEMPT - 04/16/2021 9:22 EDT Initial Assessment II Sensory and Motor Deficits : None Current Home Treatments and Equipment : CPAP, Oxygen therapy Ramón Hurst SOCIAL WORKER NON-EXEMPT - 04/16/2021 [...] Acute rehabilitation, Discharge transportation, DME, Home Health, [facility], Short term rehabilitation Patient Discharge Goal : [...] Her PCP is Dr. Salvador Zamorano in [place], [place]. She also sees a pain specialist. Pt defers HH services, SNF or acute rehab. She has home O2 through [facility] in [place] & that is her preferred DME provider. [...] provide transportation. CM will continue to follow. Rmaón Hurst SOCIAL WORKER NON-EXEMPT - 04/16/2021 9:22 EDT documented in this encounter Plan of Treatment Not on file documented as of this encounter Visit Diagnoses Not on filedocumented in this encounter
--- OUTSIDE RECORDS SUMMARY | 2025-03-29 11:03 | XMS_ITS | Encounter Summary ---
Author Organization [employer] ([place], [place], [place], [place]) Address [address] [place] [address] Care Team Providers Care Desktop Support Engineer Name Role Phone Unavailable Primary Care Provider Unavailabl e Encounter Details Date Type Department Care Team (Late st Contact Info) Description 04/16/2021 Transcribed Document [facility] [place] Family Medicine [address] [place] [address] ProviderPantera MD [address] [place] [address] Social History Tobacco Use Types Packs/Day Years Used Date Smoking Tobacco: Never Assessed Comments Unknown Sex and Gender Information Value Date Recorded Sex Assigned at Not on file Legal Sex Female 7:22 PM CDT Gender Identity Not on file Sexual Orientation Not on file documented as of this encounter Miscellaneous Notes * Cerner Conversion Note - Pantera Tineo MD - 04/16/2021 12:15 PM CDT UM Authorization Entered On: 04/16/2021 12:16 EDT Performed On: 04/16/2021 12:15 EDT by NICOLÁS LUIS RN Primary Insurance Authorization Authorization and Policy Numbers : Insurance 1 Health Plan: [employer] PPO Policy Number: [id number] Authorization Number: Insurance Primary Name : [employer]ICE PPO Policy Number: [id number] Authorization Status-Primary : Awaiting callback Reference Number-Primary : Pend ref #[id number] Authorized Service Begin Date-Primary : 04/14/2021 EDT [...] NICOLÁS LUIS RN - 04/16/2021 12:15 EDT documented in this encounter Plan of Treatment Not on file documented as of this encounter Visit Diagnoses Not on filedocumented in this encounter
--- OUTSIDE RECORDS SUMMARY | 2025-03-29 11:03 | XMS_ITS | Encounter Summary ---
Author Organization [employer] ([place], [place], [place], [place]) Address [address] [place] [address] Care Team Providers Care Securities Compliance Examiner Name Role Phone Unavailable Primary Care Provider Unavailabl e Encounter Details Date Type Department Care Team (Late st Contact Info) Description 04/16/2021 Transcribed Document [facility] [place] Family Medicine [address] [place] [address] ProviderPantera MD [address] [place] [address] Social History Tobacco Use Types Packs/Day Years Used Date Smoking Tobacco: Never Assessed Comments Unknown Sex and Gender Information Value Date Recorded Sex Assigned at Not on file Legal Sex Female 7:22 PM CDT Gender Identity Not on file Sexual Orientation Not on file documented as of this encounter Miscellaneous Notes * Cerner Conversion Note - Historical ProviderMD - 04/16/2021 2:00 AM CDT Hop Picker Details Entered On: 04/16/2021 2:31 EDT Performed [...] CARE BEDSIDE NON-EXEMPT - 04/16/2021 2:30 EDT documented in this encounter Plan of Treatment Not on file documented as of this encounter Visit Diagnoses Not on filedocumented in this encounter
[2025-03-29 11:44] VITALS: BP 112/69; PULSE 85; RESP 18; O2SAT 91; BMI 30.4
--- NOTE | 2025-03-29 12:05 | EXP.PAIN.SOA ---
[facility] Disclaimer: The information contained in this section may have been updated after the patient was seen, as this information can be updated by other users. Medical History CAD (coronary artery disease) Encounter for pre-operative cardiovascular clearance Asthma COPD mixed type Pulmonary emphysema Encounter for screening for malignant neoplasm of lung Smoking greater than 30 pack years Oxygen dependent Nephrolithiasis History of left heart catheterization Smoker Hypothyroid Tobacco abuse COPD (chronic obstructive pulmonary disease) Nonspecific ST-T changes Tachycardia Diabetes HLD (hyperlipidemia) SOB (shortness of breath) Angina, class IV Surgical History History of surgery History of surgical removal of skin lesion History of spinal surgery History of tonsillectomy History of colon surgery History of section History of bladder surgery Family History Other Family history of cancer Family history of diabetes mellitus Family history of heart disease Social History Smoking Status: Current every day smoker tobacco type: cigarettes packs per day: 1 second hand exposure: Yes alcohol intake: never counseling provided: provider counseling substance use type: denies use current occupational status: retired Travel in the last 8 weeks?: None household members: children housing: house current occupational exposures/hazards: No caffeine: No PM Subjective & Objective Subjective Subjective:: Patient is a pleasant 79-year-old female who presents today for 1 week postop of her intrathecal pain pump explant. Today she rates her pain a 10 out of 10. She states this is not related to her back and that it feels fine however she has had another fall where she tripped over her dog and ended up landing on her breast and hit her wrist again. Patient states most of the pain is related to her breast and that she did end up having additional imaging that showed no fractures. She does however state that she did end up breaking an additional finger on the same side that she fractured her wrist. She is following up with Dr. Benjamin's office immediately after her visit here. Patient is currently managed with Tylenol 3. She denies any side effects. Patient denies any problems following her pump explant. Patient is asking if there are any recommendations to help with her overall breast pain. Her Eric has been reviewed and is appropriate. Review of Systems: General: No recent weight changes, no fever, no sleep disturbances Respiratory: No cough, no shortness of air, no recurring pulmonary infections Cardiovascular/peripheral vascular: No chest pain, no palpitations, no edema, no shortness of breath Gastrointestinal: No new onset incontinence, normal bowel movements reported Genitourinary: No new onset incontinence Musculoskeletal: Breast pain Psychiatric: [Normal mood/affect] Neurological: [Denies weakness in extremities], [denies balance issues] Pain at rest (0-10 scale): 10 Objective Objective:: Physical Exam: General: Alert and oriented x3, no acute distress, pleasant and cooperative Lungs: Respirations even and unlabored, symmetrical chest expansion Eyes: PERRL Musculoskeletal: Flexion and extension of lumbar [spine] somewhat guarded secondary to pain, [antalgic gait noted] Neurological: Speech clear, no gross sensory deficit Skin: Incision site is clean, dry, well-approximated with no erythema noted, sutures and dae intact Has patient had previous pain injection?: No Conservative treatment options previously tried: Home exercise plan Length of treatment: Longer than 12 weeks Meds Home Medications and Allergies Home Medications ?Medication ?Instructions ?Recorded ?Confirmed ?Type alprazolam 1 mg tablet 1 mg PO TIDP PRN Anxiety 08/24/18 03/29/25 History omeprazole 40 mg capsule,delayed 40 mg PO BID Reflux/Acid reflux 08/24/18 03/29/25 History release levalbuterol tartrate 45 2 puff inhalation Q4H Breathing 02/07/19 03/29/25 History mcg/actuation aerosol inhaler problems milnacipran 100 mg tablet 100 mg PO BID FIBROMYALGIA 02/07/19 03/29/25 History rosuvastatin 20 mg tablet 20 mg PO HS Cholesterol 02/08/19 03/29/25 History levocetirizine 5 mg tablet 5 mg PO HS Allergy symptoms 10/11/20 03/29/25 History metformin 500 mg tablet,extended 500 mg PO DAILY Diabetes 12/18/20 03/29/25 History release 24 hr sitagliptin phosphate 100 mg tablet 100 mg PO DAILY Diabetes 12/18/20 03/29/25 History aspirin 81 mg tablet,delayed 81 mg PO DAILY HEART HEALTH 04/11/21 03/29/25 History release ergocalciferol (vitamin D2) 1,250 50,000 units PO WEEKLY Supplement 02/20/22 03/29/25 History mcg (50,000 unit) capsule metoprolol succinate 50 mg 50 mg PO DAILY High blood pressure 03/31/22 03/29/25 History tablet,extended release 24 hr furosemide 40 mg tablet 40 mg PO DAILYP PRN Fluid 10/30/22 03/29/25 History potassium chloride 10 mEq 10 meq PO BID Supplement 01/22/23 03/29/25 History tablet,extended release levalbuterol HCl 0.63 mg/3 mL 0.63 mg inhalation . PRN . 09/23/23 03/29/25 History solution for nebulization linaclotide 72 mcg capsule 72 mcg PO DAILY PRN IBS 09/23/23 03/29/25 History (Linzess) duloxetine 30 mg capsule,delayed 30 mg PO BID 12/24/23 03/29/25 History release diclofenac sodium 1 % topical gel 2 g topical QID #100 grams 12/28/23 03/29/25 Rx albuterol sulfate 90 mcg/actuation 2 inh inhalation Q6H PRN shortness 02/16/24 03/29/25 Rx aerosol inhaler (Ventolin HFA) of breath or wheezing 90 days #18 grams baclofen 10 mg tablet 10 mg PO HS #14 tabs 02/17/24 03/29/25 Rx tramadol 50 mg tablet 50 mg PO BID PRN pain #60 tabs 09/30/24 03/29/25 Rx gabapentin 300 mg capsule 600 mg PO HS neuropathy 01/24/25 03/29/25 History levothyroxine 100 mcg tablet 100 mcg PO DAILY 02/23/25 03/29/25 History acetaminophen 300 mg-codeine 30 mg 1 tab PO BID PRN pain #60 tabs 03/09/25 03/29/25 Rx tablet New Prescriptions to Start Prescriptions: Allergies Allergy/AdvReac Type Severity Reaction Status Date / Time aripiprazole (From ABILIFY) Allergy Unknown Unknown Verified 03/24/25 07:49 allergy reaction ciprofloxacin (CIPROFLOXACIN) Allergy Unknown Unknown Verified 03/24/25 07:49 allergy reaction phenazopyridine Allergy Unknown Unknown Verified 03/24/25 07:49 (PHENAZOPYRIDINE) allergy reaction Assessment and Plan *Assessment and plan (1) Low back pain: Status: Acute Category: Medical Code(s): M54.50 - Low back pain, unspecified (2) Fall: Status: Acute Category: Medical Code(s): W19.XXXA - Unspecified fall, initial encounter Plan I did discuss with her that I do believe she might benefit from adding some medicated topicals such as lidocaine or other medications without capsaicin in the ingredients to apply topically to her breast. Patient was counseled that she is still on her postop restrictions for the full 6 weeks including no submerging in water, minimal bending, twisting or lifting. Patient acknowledges understanding. Patient was not given a abdominal binder following her surgery and I did discuss with her if she starts to notice more swelling in and around the incision to let our office know and we will send in an order for this device. Currently there is no swelling noted at the incision and it does look good. Patient will return to clinic in 2 weeks for suture and staple removal.. Patient has been instructed to contact the clinic with any concerns before the next appointment. Dr. Hinojosa has reviewed this note and agrees with this plan of care. This note was dictated using voice recognition software and make contain errors or omissions. All injections are used with Lidocaine, Bupivacaine and dexamethasone. Occasionally urine drug screen is needed to verify patient's compliance with our office pain contract. This is ordered based off specific treatments related to chronic pain with the potential to abuse certain medications.
== END 2025-03-29 23:59 | disposition home or self-care (01) ==
LOC: SC.PAIN 10:53
PROVIDERS: PCP Nurse Practitioner Family; Visit Provider Nurse Practitioner Family
DX: M54.50 Low back pain, unspecified (principal); W01.0XXA Fall on same level from slipping, tripping and stumbling without subsequent striking against object, initial encounter; Y93.9 Activity, unspecified; Y92.9 Unspecified place or not applicable; Z79.1 Long term (current) use of non-steroidal anti-inflammatories (NSAID)
CPT/HCPCS: 73110; 99212; G0463

== ENCOUNTER 2025-04-13 14:48 | Outpatient (POV) | payer MEDICARE, MEDICAID, SELFPAY ==
--- OUTSIDE RECORDS SUMMARY | 2025-03-06 10:30 | XMS_ITS ---
Author Organization [facility] Address [address] [facility] [address] [place] [address] Care Team Providers Care Dry Cleaning Attendant Name Role Phone Claire Ramirez Primary Care Provider [phone] Delvin Newton Unavailable Unavailable Allergies Allergen (clinical drug ingredient) Drug/Non Drug Allergy documented on EMR Reaction Allergy Type Onset Date Status ARIPIPRAZOLE ANALOGU ES (uncoded) itching Allergy Active aripiprazole Abilify itching Drug Allergy Acti ve aripiprazole ARIPiprazole itching Drug Allergy A ctive REASON FOR VISIT ER follow up after a fall Medications Medication SIG (Take, Route, Frequency, Duration) Notes Start Date End Date Status metFORMIN HCl ER 500 MG TAKE ONE TABLET BY MOUTH TWICE DAILY; Duration: 90 Active Montelukast Sodium 10 MG 1 tab(s) orally once a day; Duration: 90 days Active Gabapentin 300 MG 2 caps orally once a day at bedtime; Duration: 90 days 10/31/2024 Active Levalbuterol HCl 0.63 MG/3ML 3 mL by nebulizer every 6 hours as needed for shortness of breath; Duration: 30 days Active PORTABLE OXYGEN (OXYLITE) DX: COPD *Please review for potential replacement for e-prescription and drug interaction check* 03/18/2023 Active Vitamin D (Ergocalciferol) 1.25 MG (43584 UT) 1 cap(s) orally once a week; Duration: 30 day(s) Active Trelegy Ellipta 100 MCG-62.5 MCG-25 MCG/INH 1 PUFF(S) INHALED ONCE A DAY; Duration: 30 DAYS *Please review and pick correct strength-formulati on from [employer] options. If intended option is not shown, discontinue and re-order from Quick Search* 08/24/2023 Active POTASSIUM CHLORIDE (XRJ-MMHF-QZM 10) 10 MEQ TAKE ONE TABLET BY MOUTH THREE TIMES A WEEK; Duration: 84 *Please review for potential replacement for e-prescription and drug interaction check* Active Furosemide 40 MG 1 tab(s) orally 2 times a day; Duration: 30 days Active Aspirin 81 MG 1 tab(s) orally once a day; Duration: 30 day(s) Active Januvia ( PHOSPHATE) 100 MG 1 TAB(S) ORALLY ONCE A DAY *Please review and pick correct strength-formulati on from [employer] options. If intended option is not shown, discontinue and re-order from Quick Search* Active Alendronate Sodium 70 MG 1 tab(s) orally once a week Active MILNACIPRAN 100 MG 1 TAB(S) ORALLY 2 TIMES A DAY *Please review for potential replacement for e-prescription and drug interaction check* Active linaCLOtide 72 MCG 1 cap(s) orally once a day Active Acetaminophen-Codeine 300-30 MG 1 tablet as needed Orally twice a day Active BUPIVACAINE HYDROCHLORIDE 0.25% DIRECTED 10mg/mL w daily dose of 8.782mg/day via pain pump *Please review for potential replacement for e-prescription and drug interaction check* Active Levothyroxine Sodium 100 MCG 1 tab(s) orally once a day; Duration: 30 days Active ALPRAZolam 1 MG 1 tab(s) orally 3 times a day as needed for anxiety; Duration: 30 days 03/03/2025 Active Levalbuterol HCl 45 MCG/INH 2 PUFF(S) INHALED EVERY 4 HOURS NEEDED FOR COPD; Duration: 30 DAYS *Please review and pick correct strength-formulati on from [employer] options. If intended option is not shown, discontinue and re-order from Quick Search* Active Metoprolol Succinate ER 50 MG TAKE ONE TABLET BY MOUTH EVERY DAY; Duration: 30 days Active Omeprazole 40 MG 1 cap(s) orally twice daily; Duration: 30 days Active Rosuvastatin Calcium 20 MG 1 tab(s) orally once a day; Duration: 90 days Active Levocetirizine Dihydrochloride 5 MG 1 tab(s) orally once a day (in the evening); Duration: 90 days Active DULoxetine HCl 30 MG 1 cap(s) orally 2 times a day; Duration: 90 days Active Social History Tobacco Use: [...] cigs/day) Section Notes: vapes Vital Signs Temperature 97.9 degrees Fahrenheit 03/06/20 25 Blood pressure systolic 106 mm Hg 03/06/20 25 Blood pressure diastolic 72 mm Hg 025 Heart Rate 104 /min 03/06/2025 Height 5 ft 5 in in 03/06/2025 Weight 193 lbs 03/06/2025 BMI 32.11 kg/m2 03/06/2025 Encounters Encounter Location Date Provider Diagnosis [facility] [address] [facility] [address] [place], [place] [address] 03/06/2025 Claire Ramirez Fall from standing, subsequent encounter W19.XXXD ; Chest wall pain R07.89 ; Closed nondisplaced fracture of third metacarpal bone of left hand, unspecified portion of metacarpal, sequela S62.303S ; Contusion of right knee, subsequent encounter S80.01XD and Contusion of right lower leg, subsequent encounter S80.11XD Assessments Encounter Date Diagnosis (ICD Code) Assessment Notes Treatment Notes Treatment Clinical Notes Section Notes 03/06/2025 Fall from standing, subsequent encounter (ICD-10 - W19.XXXD) Emergency department and orthopedic records were reviewed. Agree with plan. Discussed the use of ice on the right knee as needed, gentle range of motion. Splinting with cough and deep breathing reviewed to prevent respiratory complications. Discussed that she could use heat or ice on her chest wall, whichever is most comfortable and also topical lidocaine patch if desired. Also suggested that she could cut her Tylenol 3 in half and take half a tablet along with 1 oiri-hat-pxqtrur acetaminophen every 6 hours as needed for her pain over the next week or 2. Return precautions reviewed 03/06/2025 Chest wall pain (ICD-10 - R07.89) 03/06/2025 Closed nondisplaced fracture of third metacarpal bone of left hand, unspecified portion of metacarpal, sequela (ICD-10 - S62.303S) 03/06/2025 Contusion of right knee, subsequent encounter (ICD-10 - S80.01XD) 03/06/2025 Contusion of right lower leg, subsequent encounter (ICD-10 - S80.11XD) Plan Of Treatment Next Appt Details Follow Up: 6 Weeks, Reason: Provider Name:Claire Irving ce, 04/17/2025 11:15:00 AM, [address], [address], [place], [address], Progress Notes * Andrés LEMAaDOB: 7 (79 yo F)Acc No.[id number]:03/06/2025 Progress Notes Patient: Sindy SWARTZ Provider: SLAVA Grimaldo :1945 A ge:79 Y S ex:Female Date:03/06/2025 Address:[address] [place] [address], [id number] Subjective: * Chief Complaints: * 1 . ER follow up after a fall. * HPI: g en: 79-year-old female presents today accompanied by her son to follow-up on a recent fall. She was at home taking her dog out on a leash when she got tangled up and tripped in her threshold. She was taken to the hospital via ambulance. Diagnosed with a fracture of the left third metacarpal bone, contusion of the right knee, chest wall pain/likely contusion. She was advised to treat conservatively with jhys-pnx-bdfdwzw analgesics, ice. She saw orthopedics today and they have told her to continue to splint the left hand and wrist and has ongoing follow-up with them. She has a prescription for Tylenol 3 from pain management that she is able to take twice a day. Reports this is not really helping her pain and she is most bothered by anterior chest wall pain with cough or deep breathing. No fevers. * ROS: R ESPIRATORY: Shortness of breath y es, a t baseline. C ough y es, A t baseline. C ONSTITUTIONAL: no L oss of appetite. n o F ever. D ERMATOLOGY: no R shaunna. G ASTROENTEROLOGY: no V omiting. n o D iarrhea. * Medical History: H TN, COPD/Asthma, Hyperlipidemia, Diabetes, Arthritis, Anxiety, Chronic hypoxic respiratory failure on supplemental O2, Urinary incontinence, ALCIDES on CPAP, BCC removed from right leg. * Surgical History: t onsillectomy 1954, x 2 , Partial hysterectomy , Total [...] alive, daughter-thyroid cancer, heart disease, diagnosed with Heart Disease, Cancer. 1 brother(s) , 1 sister(s) . 5 [...] *Please review and pick correct strength-formulation from [employer] options. If intended option is not shown, [...] check*, Taking Vitamin D (Ergocalciferol) 1.25 MG (33173 UT) Capsule 1 cap(s) orally once a week , Taking POTASSIUM CHLORIDE (EEW-IKVA-QTJ 10) 10 MEQ TABLET, EXTENDED RELEASE TAKE ONE TABLET BY MOUTH THREE TIMES A WEEK , Notes to Pharmacist: *Please review for potential replacement for e-prescription and drug interaction check*, Taking Furosemide 40 MG Tablet 1 tab(s) orally 2 times a day , Taking Trelegy Ellipta 100 MCG-62.5 MCG-25 MCG/INH POWDER 1 PUFF(S) INHALED ONCE A DAY , Notes to Pharmacist: *Please review and pick correct strength-formulation from [employer] options. If intended option is not shown, discontinue and re-order from Quick Search*, Taking Montelukast Sodium 10 MG Tablet 1 tab(s) orally once a day , Taking Gabapentin 300 MG Capsule 2 caps orally once a day at bedtime , Taking Levalbuterol HCl 0.63 MG/3ML Nebulization Solution 3 mL by nebulizer every 6 hours as needed for shortness of breath , Taking metFORMIN HCl ER 500 MG Tablet Extended Release 24 Hour TAKE ONE TABLET BY MOUTH TWICE DAILY , Taking DULoxetine HCl 30 MG Capsule Delayed Release Particles 1 cap(s) orally 2 times a day , Taking Levalbuterol HCl 45 MCG/INH AEROSOL 2 PUFF(S) INHALED EVERY 4 HOURS NEEDED FOR COPD , Notes to Pharmacist: *Please review and pick correct strength-formulation from [employer] options. If intended option is not shown, discontinue and re-order from Quick Search*, Taking Metoprolol Succinate ER 50 MG Tablet Extended Release 24 Hour TAKE ONE TABLET BY MOUTH EVERY DAY , Taking Rosuvastatin Calcium 20 MG Tablet 1 tab(s) orally once a day , Taking Levocetirizine Dihydrochloride 5 MG Tablet 1 tab(s) orally once a day (in the evening) , Taking Omeprazole 40 MG Capsule Delayed Release 1 cap(s) orally twice daily , Taking Levothyroxine Sodium 100 MCG Tablet 1 tab(s) orally once a day , Taking ALPRAZolam 1 MG Tablet 1 tab(s) orally 3 times a day as needed for anxiety , Discontinued Cipro 250 MG Tablet 1 tablet Orally every 12 hrs , Discontinued Promethazine-DM 6.25-15 MG/5ML Syrup 5 mL orally every 6 hours as needed for cough , Medication List reviewed and reconciled with the patient * Allergies: A RIPiprazole: itching, Abilify: itching, ARIPIPRAZOLE ANALOGUES: itching. Objective: * Vitals: N urse: be, Pain: 10, Temp: 97.9, RR: 20, HR: 104, BP: 106/72, Ht: 5 ft 5 in, Wt: 193, BMI:32.11. * Examination: G eneral Examination: General P leasant and Cooperative, NAD on RA, seated in WC.? Chest: t nigel over the sternum but no crepitus or visible bruising. Heart: R egular Rate and Rhythm, no murmur, rubs or gallops. Lungs: f aint expiratory wheezes bilat, no rales. Abdomen: s oft, NT/ND, BS present. Extremities: b ruising of the left 2-4th fingers but good movement, splint of the hand/wrist/forearm. right knee with mild diffuse swelling, ecchymosis anterior aspect, dry abrasions. neck s upple,. Psych N ormal Mood/Affect. Assessment: * Assessment: 1. F all from standing, subsequent encounter - W19.XXXD (Primary) 2 . C hest wall pain - R07.89 3 . C losed nondisplaced fracture of third metacarpal bone of left hand, unspecified portion of metacarpal, sequela - S62.303S 4 . C ontusion of right knee, subsequent encounter - S80.01XD 5 . C ontusion of right lower leg, subsequent encounter - S80.11XD Plan: * Treatment: * Procedure Codes: 1 111F DSCHRG MED/CURRENT MED MERGE * Follow Up: 6 Weeks * * Sign off status: Completed true * Provider: SLAVA Grimaldo Date: 03/06/2025 Generated for Honey aquino/Francisco/Gary on: 04/13/2025 02:54 PM EDT History and Physical Notes * Examination Category Sub-Category Detail Notes Category Not es General Examination Heart: Regular Rate and Rhythm, no murmur, rubs or gallops Lungs: faint expiratory whe ezes bilat, no rales Abdomen: soft, NT/ND, BS pres ent Extremities: bruising of the left 2-4th fingers but good movement, splint of the hand/wrist/forearm. right knee with mild diffuse swelling, ecchymosis anterior aspect, dry abrasions Chest: tender over the ster num but no crepitus or visible bruising neck supple, General Pleasant and Coopera tive, NAD on RA, seated in WC Psych Normal Mood/Affect
--- OUTSIDE RECORDS SUMMARY | 2025-04-13 14:52 | XMS_ITS | Encounter Summary ---
Author Organization [employer] ([place], [place], [place], [place]) Address [address] [place] [address] Care Team Providers Care Holiday Detector Operator Name Role Phone Unavailable Primary Care Provider Unavailabl e Encounter Details Date Type Department Care Team (Late st Contact Info) Description 04/15/2021 Transcribed Document [facility] [place] Family Medicine [address] [place] [address] ProviderPantera MD [address] [place] [address] Social History Tobacco Use Types [...]
--- OUTSIDE RECORDS SUMMARY | 2025-04-13 14:53 | XMS_ITS | Encounter Summary ---
Author Organization [employer] ([place], [place], [place], [place]) Address [address] [place] [address] Care Team Providers Care Gas Truck Driver Name Role Phone Unavailable Primary Care Provider Unavailabl e Encounter Details Date Type Department Care Team (Late st Contact Info) Description 04/15/2021 Transcribed Document [facility] [place] Family Medicine [address] [place] [address] ProviderPantera MD [address] [place] [address] Social History Tobacco Use Types [...] Health Plan: [employer] PPO Policy Number: [id number] Authorization Number: Insurance Primary Name : [employer] PPO Policy Number: [id number] Authorization Status-Primary : Awaiting callback Reference Number-Primary : Pend ref #[id number] Authorized Service Begin Date-Primary : 04/14/2021 EDT Authorization Comments-Primary : Ref to [employer] Historical Authorization Comments-Primary : Comment 1: Pend ref no per [employer], reviewer has access to [employer] (NICOLÁS LUIS RN 04/15/2021 09:26) NICOLÁS LUIS RN - 04/15/2021 15:15 EDT documented in this encounter Plan of Treatment Not on file documented as of this encounter Visit Diagnoses Not on filedocumented in this encounter
--- OUTSIDE RECORDS SUMMARY | 2025-04-13 14:53 | XMS_ITS | Encounter Summary ---
Author Organization [employer] ([place], [place], [place], [place]) Address [address] [place] [address] Care Team Providers Care Maintenance Engineer Oil Field Name Role Phone Unavailable Primary Care Provider Unavailabl e Encounter Details Date Type Department Care Team (Late st Contact Info) Description 04/15/2021 Transcribed Document [facility] [address] [place] [address] ProviderPantera MD [address] [place] [address] Social History Tobacco Use Types [...] 04/15/2021 16:08 EDT by Alice Pool Patient Instructor Hairspring Robina Phone Call for Consults Consult Phone Call/Page Attempt : Other: spoke with office Consult Reason : sammie Physician Requesting Consult : EDWARDO SCHULTZ PA-C Physician Requested for Consult : ABE العراقي MD-URO Provider Team Notified Name : Urology Physician Covering for Consult : ROSITA LARKIN MD Date and Time Call Returned : 04/15/2021 16:25 EDT Alice Pool Patient Instructor Hairspring I - 04/15/2021 16:24 EDT documented in this encounter Plan of Treatment Not on file documented as of this encounter Visit Diagnoses Not on filedocumented in this encounter
--- OUTSIDE RECORDS SUMMARY | 2025-04-13 14:53 | XMS_ITS | Encounter Summary ---
Author Organization [employer] ([place], [place], [place], [place]) Address [address] [place] [address] Care Team Providers Care Client Services Associate Name Role Phone Unavailable Primary Care Provider Unavailabl e Encounter Details Date Type Department Care Team (Late st Contact Info) Description 04/15/2021 Transcribed Document [facility] [place] Medicine [facility] [place] [address] ProviderPantera MD [address] [place] [address] Social History Tobacco Use Types [...] JANET GRAHAM, PT - 04/16/2021 12:10 EDT Care Home Goals Mobility/Bed Mobility LTG PT Grid [...] JANET GRAHAM, PT - 04/16/2021 12:10 EDT [place] PT Charges PT Therap. Exercise 15 min : 1 PT Eval Low Complexity : 1 JANET GRAHAM PT - 04/16/2021 12:10 EDT documented in this encounter Plan of Treatment Not on file documented as of this encounter Visit Diagnoses Not on filedocumented in this encounter
--- OUTSIDE RECORDS SUMMARY | 2025-04-13 14:53 | XMS_ITS | Encounter Summary ---
Author Organization [employer] ([place], [place], [place], [place]) Address [address] [place] [address] Care Team Providers Care Casting Trucker Name Role Phone Unavailable Primary Care Provider Unavailabl e Encounter Details Date Type Department Care Team (Late st Contact Info) Description 04/15/2021 Transcribed Document [facility] [place] Family Medicine [address] [place] [address] ProviderPantera MD [address] [place] [address] Social History Tobacco Use Types [...] Historical ProviderMD - 04/15/2021 2:00 PM CDT [facility] Barbara PreOp Summary Primary Physician: NIKHIL RINCON MD Finalized Date/Time: 04/15/21 12:09:37 Pt. Name: SINDY NGUYEN D.O.B./Sex: 1945 Female Med Rec #: [id number] Physician: RODRIGO BASURTO DO-INT Financial #: [id number] Pt. Type: I Room/Bed: [facility]/ Admit/Disch: 04/14/21 23:14:00 - Institution: [facility] Barbara PreOp Case Times Entry 1 [...]
--- OUTSIDE RECORDS SUMMARY | 2025-04-13 14:53 | XMS_ITS | Encounter Summary ---
Author Organization [employer] ([place], [place], [place], [place]) Address [address] [place] [address] Care Team Providers Care Pneumatic Tube Fitter Name Role Phone Unavailable Primary Care Provider Unavailabl e Encounter Details Date Type Department Care Team (Late st Contact Info) Description 04/15/2021 Transcribed Document [facility] [place] [facility] [place] [address] ProviderPantera MD [address] [place] [address] Social History Tobacco Use Types [...] OT Evaluation and Treatment Ordered By: RODRIGO BASUROT DO-INT Active Diagnoses : No Qualifying Diagnoses [...] OCCUPATIONAL THERAPIST NON-EXEMPT - 04/16/2021 13:01 EDT Ranch Manager Goals, OT Grooming LTG Grid Goal #1 [...] or set up Equipment : Long Handled Public Health Educator, Sock aid Date to Meet : 04/30/2021 [...]
--- OUTSIDE RECORDS SUMMARY | 2025-04-13 14:53 | XMS_ITS | Encounter Summary ---
Author Organization [employer] ([place], [place], [place], [place]) Address [address] [place] [address] Care Team Providers Care Sewer Cleaner Name Role Phone Unavailable Primary Care Provider Unavailabl e Encounter Details Date Type Department Care Team (Late st Contact Info) Description 04/14/2021 Transcribed Document [facility] [place] Medicine [facility] [place] [address] ProviderPantera MD [address] [place] [address] Social History Tobacco Use Types [...] History of Anesthesia Reaction : None Cathie ePters LPN - 04/14/2021 23:44 EDT Anticipated Discharge [...] 23:44 EDT General Info Contact Password : Celsete Jimenez RN - 04/15/2021 14:26 EDT Support Person/Patient Haul Driver : Yes Support Person/Pt Rep Name : annalise Nasreen - friend Support Person/Pt Rep Contact Information : [phone] Want Family/Rep/Phys Notified of Admit : No Emergency Contact #1 : Celeste Rios Emergency Contact #1 Emergency Contact #1 Relationship : Daughter Emergency Contact #2 : Mariana Tee Emergency Contact #2 Emergency Contact #2 Relationship : Daughter Primary Language : Wallisian Preferred Communication Mode : Verbal Communication Barrier : None Manager Of It Needed : No Cathie Peters LPN - [...] Level : 46 or > High Risk [place] Fall Interventions : Adequate lighting, Assistive devices [...] Source : Estimated Height Entry Format : [place] Height, Feet : 5 ft(Converted to: 152 cm, 60 Inch) Height, Inches : 5 Inch(Converted to: 0 ft 5 Inch, 12.70 cm) Clinical Height : 165.1 cm Weight Source : Estimated [place] Body Weight : 57 kg Cathie Peters LPAlonso Laird 04/14/2021 23:44 EDT Estimated Weight Type of Weight Measurement Est : [place] Weight, est lb : 194 lb(Converted to: [...] Cathie Peters LPN - 04/14/2021 23:44 EDT [place] Suicide Severity Rating Scale (C-SSRS) CSSRS Past [...] LPN - 04/14/2021 23:44 EDT Spiritual/Cultural Needs Holiness Preference : Jehovah'S Witness Cathie Peters LPN - 04/14/2021 23:44 EDT Valuables and Belongings Valuables and Belongings : Clothing, Personal devices, Personal items Clothing : Common streetwear Clothing Disposition : Bedside Personal Device Disposition : With patient Personal Devices : Dentures, upper, Dentures, lower Personal Items : Cell phone, Other: phone environmental department manager Personal Items Disposition : Bedside Cathie Peters LPN - 04/14/2021 23:44 EDT Electronically signed by Major, [facility] Conversion Operations And Maintenance Supervisor Cerner at 01/02/2023 6:11 PM CDT documented in this encounter Plan of Treatment Not on file documented as of this encounter Visit Diagnoses Not on filedocumented in this encounter
--- OUTSIDE RECORDS SUMMARY | 2025-04-13 14:53 | XMS_ITS | Encounter Summary ---
Author Organization [employer] ([place], [place], [place], [place]) Address [address] [place] [address] Care Team Providers Care Cinder Man Name Role Phone Unavailable Primary Care Provider Unavailabl e Encounter Details Date Type Department Care Team (Late st Contact Info) Description 04/14/2021 Transcribed Document [facility] [place] [address] [place] [address] ProviderPantera MD [address] [place] [address] Social History Tobacco Use Types [...] listed. Denies hematemesis. Patient was admitted to [facility] on 04/12 and discharged on 04/13 for same symptoms and was diagnosed with viral gastroenteritis and dehydration. Patient then presented to [facility] for same symptoms. She was diagnosed with [...] Int Units, Oral, 0 Refill(s) Flonase: 1 [place], Nostrils Both, Daily, 0 Refill(s) Januvia: 100 [...] Drisdol 50,000 Int Units, Oral Flonase 1 [place], Nostrils Both, Daily furosemide 40 mg, PRN, [...] Problem list: Medical Cataract / SNOMED CT 795482888 / Confirmed Heart failure / SNOMED CT 508747289 / Confirmed Hypertension / SNOMED CT 58855544 / Confirmed Hyperlipidemia / SNOMED CT 97927282 / Confirmed Pulmonary embolism / SNOMED CT 61787123 / Confirmed COPD (chronic obstructive pulmonary disease) / SNOMED CT 43370653 / Confirmed Sleep apnea / SNOMED CT 788789394 / Confirmed Tobacco use / SNOMED CT 285414782 / Confirmed GERD - Gastro-esophageal reflux disease / SNOMED CT 8757721769 / Confirmed Renal calculus / SNOMED CT 151834213 / Confirmed Back pain / SNOMED CT 836280007 / Confirmed Arthritis / SNOMED CT 7362223 / Confirmed Fibromyalgia / SNOMED CT 8159394434 / Confirmed Diabetes mellitus type II / SNOMED CT 83065977 / Confirmed Thyroid disease / SNOMED CT 625293923 / Confirmed Migraine / SNOMED CT 37077038 / Confirmed Metabolic encephalopathy / SNOMED CT 60470697 / Confirmed Migraine / SNOMED CT 30348138 / Confirmed Esophageal stricture / SNOMED CT 766625399 / Confirmed Anxiety / SNOMED CT 5028899548 / Confirmed Vitamin D deficiency / SNOMED CT 77911049 / Confirmed Vitamin B 12 deficiency / SNOMED CT 9835919722 / Confirmed Mixed incontinence / SNOMED CT 3208212974 / Confirmed Bipolar 1 disorder / SNOMED CT 6383272034 / Confirmed Major depression / SNOMED CT 1709084218 / Confirmed Insomnia / SNOMED CT 773043710 / Confirmed Oxygen dependent / SNOMED CT 8945162034 / Confirmed at night with c-pap PTSD (post-traumatic stress disorder) / SNOMED CT 459177331 / Confirmed, Active Problems (28) Anxiety Arthritis [...]
--- OUTSIDE RECORDS SUMMARY | 2025-04-13 14:53 | XMS_ITS | Encounter Summary ---
Author Organization [employer] ([place], [place], [place], [place]) Address [address] [place] [address] Care Team Providers Care Vegetable Cook Name Role Phone Unavailable Primary Care Provider Unavailabl e Encounter Details Date Type Department Care Team (Late st Contact Info) Description 04/15/2021 Transcribed Document [facility] [place] [address] [place] [address] ProviderPantera MD [address] [place] [address] Social History Tobacco Use Types [...]
--- OUTSIDE RECORDS SUMMARY | 2025-04-13 14:53 | XMS_ITS | Encounter Summary ---
Author Organization [employer] ([place], [place], [place], [place]) Address [address] [place] [address] Care Team Providers Care Pacs Administrator Name Role Phone Unavailable Primary Care Provider Unavailabl e Encounter Details Date Type Department Care Team (Late st Contact Info) Description 04/15/2021 Transcribed Document [facility] [place] Family Medicine [address] [place] [address] ProviderPantera MD [address] [place] [address] Social History Tobacco Use Types [...] Health Plan: [employer]ICE PPO Policy Number: [id number] Authorization Number: Insurance Primary Name : [employer] CHOICE PPO Policy Number: [id number] Authorization Status-Primary : Awaiting callback Reference Number-Primary : Pend ref #[id number] Authorized Service Begin Date-Primary : 04/14/2021 EDT [...]
--- OUTSIDE RECORDS SUMMARY | 2025-04-13 14:53 | XMS_ITS | Clinical Summary ---
Author Organization [facility] Address [address] [place] [address] Phone Care Team Providers Care Clerical Associate Name Role Phone Greg Brar MD Unavailable [phone] James Nielsen MD Unavailable [phone] Sharon Roa MD Unavailable [phone] Salvador Zamorano MD Primary Care Provider [phone] Allergies Active Allergy Reactions Criticality Noted Date [...] 30 Tab 2 08/20/20 15 Active methen-m.blue-s.ph mo-wxyak-gag 118-10-40.8-36 mg Oral Capsule Take 1 Tab [...] Type 2 diabetes mellitus without complication, unspecified intermediate insulin use status Take 1 Tab by [...] complication, without long-term current use of insulin ([facility]) Take 1 Tab by mouth 2 times [...] MENISCECTOMY CHONDROPLASTY; Surgeon: Jose Pope MD; Location: [facility] MA[facility]; Service: Orthopedics CARDIAC CATHETERIZATION [...] Date Smoking Tobacco: Every Day Cigarettes 1 66 Started: 04/17/1959 Smokeless Tobacco: Never Tobacco Cessation:Ready [...] COVID-19 Vaccine ( season) 2024 Influenza Vaccine (#1) 2025 7, [...] 7 2:39 PM EDT) No Givens, Tamiko Eliasn, RMA Medical Devices Implanted Type Area Office Cleaner Device Identifier Shelf Expiration Date Model / [...] [facility] Hep C Ab Negative Negative [facility] Blood specimen (specimen) UPPER LIMB STRUCTURE / Unknown 09/26/2016 11:46 AM EST 09/26/2016 8:13 PM EST Ely Carpenter MD CHEMISTRY ORDERABLES Edited Re sult - Final Performing Organization Address [facility] de Phone Number [facility] [address] [place] [address] * (ABNORMAL) LIPID SCREEN (09/26/2016 11:46 AM EST) Cholesterol 174 <=200 mg/dL [facility] Comment: < 200 Desirable 200 - 239 Borderline High >= 240 High Triglyceride 165(H) <=150 mg/dL [facility] Comment: < 150 Normal 150 - 199 Borderline High 200 - 499 High >= 500 Very High HDL 65 >=40 mg/dL [facility] Comment: > 60 Optimal 40 - 60 Acceptable < 40 Low LDL Calculated 76 <=100 mg/dL [facility] Comment: < 100 Optimal 100 - 129 Near or above optimal 130 - 159 Borderline High 160 - 189 High >= 190 Very High Blood specimen (specimen) UPPER LIMB STRUCTURE / Unknown 09/26/2016 11:46 AM EST 09/26/2016 8:13 PM EST Ely Carpenter MD CHEMISTRY ORDERABLES Edited Re sult - Final Performing Organization Address [facility] Phone Number [facility] [address] [place] [address] * (ABNORMAL) COMPREHENSIVE METABOLIC PANEL (09/26/2016 11:46 AM EST) Sodium 142 136 - 145 mmol/L [facility] Potassium 5.2(H) 3.5 - 5.0 mmol/L [facility] Chloride 101 98 - 107 mmol/L [facility] Total CO2 30(H) 22 - 29 mmol/L [facility] Anion Gap 11 7 - 16 mmol/L [facility] Calcium 9.7 8.8 - 10.2 mg/dL [facility] Glucose Lvl 115(H) 82 - 100 mg/dL [facility] BUN 16 8 - 23 mg/dL [facility] Creatinine 0.81 0.51 - 1.30 mg/dL [facility] Albumin 4.2 3.2 - 4.6 gm/dL [facility] Total Protein 7.1 6.4 - 8.3 gm/dL [facility] Bili Total 0.2 0.1 - 1.3 mg/dL [facility] AST 15 <=40 IU/L [facility] ALT 14 <=41 IU/L [facility] Alk Phos 90 35 - 104 IU/L [facility] GFR Afr Am >60 [facility] GFR Non Afr Am >60 [facility] Blood specimen (specimen) UPPER LIMB STRUCTURE / Unknown 09/26/2016 11:46 AM EST 09/26/2016 8:13 PM EST us Ely Carpenter MD CHEMISTRY ORDERABLES Edited Re sult - Final [facility] [address] [place] [address] * CT CHEST W CONTRAST (01/01/2015 2:47 [...] CONTRAST Jan 01, 2015 02:47:16 PM HISTORY: 786.6-Sjuhf-SOC-9-CM Comparison 04/23/2014. Technical 75 cc Isovue-370 Previously [...] CONTRAST Jan 01, 2015 02:47:16 PM HISTORY: 786.9-Ekwtv-MHO-9-CM Comparison 04/23/2014. Technical 75 cc Isovue-370 Previously [...] Most Recently Relevant to Health Maintenance Insurance [facility] [employer] [facility] [address] [facility] [place] [address] HUMANA MEDICARE PPO MR Advance Directives For more information, please contact: [phone] * Full Code (Latest Code Status on File) Date Activated Date Inactivated Comments 04/18/2015 8:32 AM 04/20/2015 6:29 PM * Full Code Date Activated Date Inactivated Comments 01/02/2015 10:12 PM 01/03/2015 9:25 PM * Full Code Date Activated Date Inactivated Comments 07/03/2014 2:33 AM 07/04/2014 6:32 PM * Full Code Date Activated Date Inactivated Comments 04/24/2014 2:19 AM 04/25/2014 8:45 PM Care Teams Clerical Associate Relationship Specialty Start Date End Date Sharon Rao MD [address] [facility] [place] [address] PCP - Hematology/Oncology Internal Medicine-Medical Oncology 07/16/15 Salvador Zamorano MD [address] [place] [address] [address] [place] [address] PCP - General Internal Medicine 04/21/18 Greg Brar MD Internal Medicine-Gastroentero logy 03/18/13 James Nielsen MD [address] [facility] [place] [address] Internal Medicine-Cardiovascul ar Disease 02/14/15
--- OUTSIDE RECORDS SUMMARY | 2025-04-13 14:53 | XMS_ITS | Referral Summary ---
Author Organization [employer] ([place], [place], [place], [place]) Address [address] [place] [address] Care Team Providers Care Glove Turner Name Role Phone Unavailable Primary Care Provider [...]
--- OUTSIDE RECORDS SUMMARY | 2025-04-13 14:53 | XMS_ITS | Encounter Summary ---
Author Organization [employer] ([place], [place], [place], [place]) Address [address] [place] [address] Care Team Providers Care Electrical Power Engineer Name Role Phone Unavailable Primary Care Provider Unavailabl e Encounter Details Date Type Department Care Team (Late st Contact Info) Description 04/15/2021 Transcribed Document [facility] [place] [address] [place] [address] ProviderPantera MD [address] [place] [address] Social History Tobacco Use Types [...] 04/15/2021 8:00 EDT by Alice Pool Patient First Aid Trainer Robina Phone Call for Consults Consult Phone Call/Page Attempt : Other: spoke with chinmay Consult Reason : gi bleed, occult + Physician Requesting Consult : RODRIGO BASURTO DO-INT Physician Requested for Consult : KENRICK SULLIVAN MD Provider Service Notified Name : Gastroenterology Date and Time Call Returned : 04/15/2021 9:34 EDT Alcie Pool Patient First Aid Trainer I - 04/15/2021 9:33 EDT documented in this encounter Plan of Treatment Not on file documented as of this encounter Visit Diagnoses Not on filedocumented in this encounter
--- OUTSIDE RECORDS SUMMARY | 2025-04-13 14:53 | XMS_ITS | Encounter Summary ---
Author Organization [employer] ([place], [place], [place], [place]) Address [address] [place] [address] Care Team Providers Care Graduate Student Name Role Phone Unavailable Primary Care Provider Unavailabl e Encounter Details Date Type Department Care Team (Late st Contact Info) Description 04/14/2021 Transcribed Document [facility] [place] [address] [place] [address] ProviderPantera MD [address] [place] [address] Social History Tobacco Use Types [...] Jesica Johnston Dietitian - 04/15/2021 15:52 EDT Electronically signed by Olga Gonsalves Conversion Electro Mechanical Solar Technician Cerner at 01/02/2023 6:20 PM CDT documented in this encounter Plan of Treatment Not on file documented as of this encounter Visit Diagnoses Not on filedocumented in this encounter
--- OUTSIDE RECORDS SUMMARY | 2025-04-13 14:53 | XMS_ITS | Encounter Summary ---
Author Organization [employer] ([place], [place], [place], [place]) Address [address] [place] [address] Care Team Providers Care Secondary Market Manager Name Role Phone Unavailable Primary Care Provider Unavailabl e Encounter Details Date Type Department Care Team (Late st Contact Info) Description 04/15/2021 Transcribed Document [facility] [place] Family Medicine [address] [place] [address] ProviderPantera MD [address] [place] [address] Social History Tobacco Use Types [...] Fibromyalgia, and GERD. [facility] positive stool guaiac. She reports she has had diarrhea for 1 week, with lower abdominal cramping as well as some vomiting. She states she was also experiencing some dizziness. She was initially evaluated at [facility], admitted over night for observation and released the next day. She reports her vomiting subsided but continued to have diarrhea and was then evaluated at [facility]. She was found to have TENA, [...] PRN Qnasl 80 mcg/inh nasal spray, 2 [place], Nasal, Daily, PRN rosuvastatin 20 mg oral [...] Lymph # 1.63 x10(3)/uL 04/15/2021 00:49 EDT [place] % 8.8 % 04/15/2021 00:49 EDT [place] # 1.39 K/uL (High) 04/15/2021 00:49 EDT [...]
--- OUTSIDE RECORDS SUMMARY | 2025-04-13 14:53 | XMS_ITS | Encounter Summary ---
Author Organization [employer] ([place], [place], [place], [place]) Address [address] [place] [address] Care Team Providers Care Server Cashier Name Role Phone Unavailable Primary Care Provider Unavailabl e Encounter Details Date Type Department Care Team (Late st Contact Info) Description 04/15/2021 Transcribed Document [facility] [place] Medicine [address] [place] [address] ProviderPantera MD [address] [place] [address] Social History Tobacco Use Types [...] 04/16/2021 08:28:00 EDT morphine,1mg IV Push,Left Antecubital Silva,Pain (Severe 7-10) Pain Assessment Pain Assessment : [...]
--- OUTSIDE RECORDS SUMMARY | 2025-04-13 14:53 | XMS_ITS | Encounter Summary ---
Author Organization [employer] ([place], [place], [place], [place]) Address [address] [place] [address] Care Team Providers Care Call Center Director Name Role Phone Unavailable Primary Care Provider Unavailabl e Encounter Details Date Type Department Care Team (Late st Contact Info) Description 04/15/2021 Transcribed Document [facility] [place] Family Medicine [address] [place] [address] ProviderPantera MD [address] [place] [address] Social History Tobacco Use Types [...]
--- OUTSIDE RECORDS SUMMARY | 2025-04-13 14:53 | XMS_ITS | Encounter Summary ---
Author Organization [employer] ([place], [place], [place], [place]) Address [address] [place] [address] Care Team Providers Care Child Support Case Officer Name Role Phone Unavailable Primary Care Provider Unavailabl e Encounter Details Date Type Department Care Team (Late st Contact Info) Description 04/15/2021 Transcribed Document [facility] [place] [address] [place] [address] ProviderPantera MD [address] [place] [address] Social History Tobacco Use Types [...] Historical ProviderMD - 04/15/2021 12:50 PM CDT [facility] Endo PACU Summary Primary Physician: NIKHIL RINCON MD Finalized Date/Time: 04/15/21 13:58:40 Pt. Name: SINDY NGUYEN D.O.B./Sex: 1945 Female Med Rec #: [id number] Physician: RODRIGO BASURTO DO-INT Financial #: [id number] Pt. Type: I Room/Bed: [facility]/1 Admit/Disch: 04/14/21 23:14:00 - Institution: [facility] PACU Case Times Entry 1 In PACU I 04/15/21 13:31:00 Ready for PACU 04/15/21 13:55:00 Discharge Discharge from PACU 04/15/21 13:57:00 I Last Modified By: Harriett Antoine RN 04/15/21 13:58:38 [facility] Endo PACU Case Times Audit 04/15/21 13:58:38 Order Administrator: JACKELIN Modifier: JACKELIN <+> 1 Ready for PACU Discharge <+> 1 Discharge from PACU I Finalized By: Harriett Antoine, RN Document Signatures Signed By: Harriett Antoine RN 04/15/21 13:58 Electronically signed by Major [facility] Conversion Crinkling Machine Operator Cerner at 01/02/2023 6:09 PM CDT documented in this encounter Plan of Treatment Not on file documented as of this encounter Visit Diagnoses Not on filedocumented in this encounter
--- OUTSIDE RECORDS SUMMARY | 2025-04-13 14:53 | XMS_ITS | Encounter Summary ---
Author Organization [employer] ([place], [place], [place], [place]) Address [address] [place] [address] Care Team Providers Care Oil Treater Name Role Phone Unavailable Primary Care Provider Unavailabl e Encounter Details Date Type Department Care Team (Late st Contact Info) Description 04/15/2021 Transcribed Document [facility] [place] Family Medicine [address] [place] [address] ProviderPantera MD [address] [place] [address] Social History Tobacco Use Types [...]
--- OUTSIDE RECORDS SUMMARY | 2025-04-13 14:53 | XMS_ITS | Encounter Summary ---
Author Organization [employer] ([place], [place], [place], [place]) Address [address] [place] [address] Care Team Providers Care Student Specialist Name Role Phone Unavailable Primary Care Provider Unavailabl e Encounter Details Date Type Department Care Team (Late st Contact Info) Description 04/15/2021 Transcribed Document [facility] [place] [address] [place] [address] ProviderPantera MD [address] [place] [address] Social History Tobacco Use Types Packs/Day Years Used Date Smoking Tobacco: Never Assessed Comments Unknown Sex and Gender Information Value Date Recorded Sex Assigned at Not on file Legal Sex Female 7:22 PM CDT Gender Identity Not on file Sexual Orientation Not on file documented as of this encounter Miscellaneous Notes * Cerner Conversion Note - Pantera Tinoe MD - 04/15/2021 12:43 AM CDT Pain [...]
--- OUTSIDE RECORDS SUMMARY | 2025-04-13 14:53 | XMS_ITS | Encounter Summary ---
Author Organization [employer] ([place], [place], [place], [place]) Address [address] [place] [id number] Care Team Providers Care Hosting Engineer Name Role Phone Unavailable Primary Care Provider Unavailabl e Encounter Details Date Type Department Care Team (Late st Contact Info) Description 04/15/2021 Transcribed Document [facility] [place] [place] Family Medicine [address] [place] [address] ProviderPantera MD [address] [place] [address] Social History Tobacco Use Types [...] Pantera ProviderMD - 04/15/2021 12:50 PM CDT [facility] End[facility] IntraOp Summary Primary Physician: NIKHIL RINCON MD Finalized Date/Time: 04/15/21 13:26:28 Pt. Name: SINDY NGUYENO.B./Sex: 1945 Female Med Rec #: [id number] Physician: RODRIGO BASURTO DO-INT Financial #: [id number] Pt. Type: I Room/Bed: [facility] Admit/Disch: 04/14/21 23:14:00 - Institution: [facility] End[facility] - Case Attendance Entry 1 Entry 2 Entry 3 Case Attendee NIKHIL RINCON MD CELLAROSI-TYLER AN Springate, Samantha RN -ANS Role Performed Surgeon/Proceduralist, Anesthesiologist Safety Clothing And Equipment Developer, First First Time In 04/15/21 12:42:00 04/15/21 [...] Christine Robbins RN 04/15/21 13:25:50 04/15/21 13:25:50 [facility] - Case Attendance Audit 04/15/21 13:25:50 Credit Review Manager: [id number] Modifier: [id number] 1 <+> Time Out 1 <*> Procedure [...] Biopsy, Gastric Biopsy, Colon Biopsy 04/15/21 13:19:13 Credit Review Manager: [id number] Modifier: [id number] 1 <*> Procedure Esophagogastroduodenoscopy, Colonoscopy, Duodenal Biopsy, Gastric Biopsy 2 <*> Procedure Esophagogastroduodenoscopy, Colonoscopy, Duodenal Biopsy, Gastric Biopsy 3 <*> Procedure Esophagogastroduodenoscopy, Colonoscopy, Duodenal Biopsy, Gastric Biopsy 4 <*> Procedure Esophagogastroduodenoscopy, Colonoscopy, Duodenal Biopsy, Gastric Biopsy 5 <*> Procedure Esophagogastroduodenoscopy, Colonoscopy, Duodenal Biopsy, Gastric Biopsy 04/15/21 12:54:09 Credit Review Manager: [id number] Modifier: [id number] 1 <*> Procedure Esophagogastroduodenoscopy, Colonoscopy 2 <*> Procedure Esophagogastroduodenoscopy, Colonoscopy 3 <*> Procedure Esophagogastroduodenoscopy, Colonoscopy 4 <*> Procedure Esophagogastroduodenoscopy, Colonoscopy 5 <*> Procedure Esophagogastroduodenoscopy, Colonoscopy 04/15/21 12:51:35 Credit Review Manager: [id number] Modifier: [id number] 2 <+> Time Out 2 <*> Procedure Esophagogastroduodenoscopy, Colonoscopy 04/15/21 12:51:14 Credit Review Manager: [id number] Modifier: [id number] <+> 5 Case Attendee <+> 5 Role Performed <+> 5 Time In <+> 5 Procedure 04/15/21 12:42:43 Credit Review Manager: [id number] Modifier: [id number] 1 <*> Time In 04/15/21 12:33:00 1 <*> Procedure Esophagogastroduodenoscopy, Colonoscopy <+> 2 Procedure <+> 3 Procedure <+> 4 Procedure 04/15/21 12:40:59 Credit Review Manager: [id number] Modifier: [id number] 1 <*> Procedure Esophagogastroduodenoscopy, Colonoscopy <+> 2 Time In <+> 3 Time In <+> 4 Time In 04/15/21 12:35:05 Credit Review Manager: [id number] Modifier: [id number] 1 <+> Time In 1 <*> Procedure Esophagogastroduodenoscopy, Colonoscopy <+> 2 Case Attendee <+> 2 Role Performed <+> 3 Case Attendee <+> 3 Role Performed <+> 4 Case Attendee <+> 4 Role Performed [facility] - Case times Entry 1 Patient In Room Time 04/15/21 12:33:00 Out Room Time 04/15/21 13:28:00 Anesthesia Start Time 04/15/21 12:33:00 Stop Time 04/15/21 13:28:00 Surgery / Procedure Times Start Time 04/15/21 12:50:00 Stop Time 04/15/21 13:25:00 Last Modified By: Christine Urena RN 04/15/21 13:25:49 [facility] - Case times Audit 04/15/21 13:25:49 Credit Review Manager: [id number] Modifier: [id number] <+> 1 Out Room Time <+> 1 Stop Time <+> 1 Stop Time 04/15/21 12:50:27 Credit Review Manager: [id number] Modifier: [id number] <+> 1 Start Time [facility] - Cultures and Spec Summary Entry 1 Cultrures and Specimens Specimen Ordered: Yes Test(s) Routine/Path-Lab Requested/Final Disposition Last Modified By: Christine Urena RN 04/15/21 12:54:15 [facility] - Delays Entry 1 Delay Reason Other Duration 0 Minute(s) Last Modified By: Christine Urena RN 04/15/21 12:35:09 [facility] - Departure from OR Entry 1 Integumentary Assessment Integumentary WDL Assessment WDL Transfer/Handoff Transfer to PACU Phase I Post-op Transport Stretcher/Gurney Via Patient Transport Christine Urena, Accompanied by RNELDA MARIA, MD-ANS Last Modified By: Christine Urena RN 04/15/21 12:35:17 [facility] - Endoscopy Details Entry 1 Abdomen Procedure Soft, Non-Tender Assessment Procedure Abdomen 04/15/21 12:33:00 Assessment D/T Radio Frequency Ablation Abdominal Pressure Last Modified By: Christine Urena RN 04/15/21 12:35:25 [facility] - Fire Risk Assessment Entry 1 [...] Modified By: Christine Urena RN 04/15/21 12:35:31 [facility] - General Case Gum Rolling Machine Operator 1 Case Information OR Endo 03 [facility] Case Level 1 Room Verified Yes Wound Class III - Contaminated Specialty Gastroenterology Anesthesia Type MAC ASA Class 4 Diagnosis Preop Diagnosis GI Bleed/Diarrhea Postop Same As Preop No Postop Diagnosis gastritis Last Modified By: Christine Urena RN 04/15/21 12:55:07 [facility] - General Case Data Audit 04/15/21 12:55:07 Credit Review Manager: [id number] Modifier: [id number] 1 <+> Postop Same As Preop 1 <*> Preop Diagnosis GI Bleed 1 <+> Postop Diagnosis [facility] - Intraoperative Assessment Entry 1 Valid History / Yes Physical in Chart Preoperative Yes Checklist Reviewed/Evaluated Patient is Latex No Sensitive Level of WDL Consciousness (WDL = Alert, Oriented to Person, Place, and Time) Last Modified By: Christine Urena RN 04/15/21 12:40:25 [facility] - Intraoperative Equipment Entry 1 Equipment Intraop Monitoring Electrocardiogram Three lead placement (ECG) Electrode Placement Blood Pressure Arm, left upper Location Pulse Oximeter Hand, right Probe Site Antiembolic Devices Scopes Flexible Endoscopes Gastroscope, Used Colonoscope, Peds Scope Serial D, N Number/Identificatio n Number Photo/Video Documentation Photo Yes Video No Last Modified By: Christine Urena RN 04/15/21 12:40:39 [facility] - Patient Positioning Entry 1 Procedure [...] Modified By: Christine Urena RN 04/15/21 13:19:14 [facility] - Patient Positioning Audit 04/15/21 13:19:14 Credit Review Manager: [id number] Modifier: [id number] 1 <*> Procedure Esophagogastroduodenoscopy, Duodenal Biopsy, Gastric Biopsy 04/15/21 12:54:10 Credit Review Manager: [id number] Modifier: [id number] 1 <*> Procedure Esophagogastroduodenoscopy [facility] - Sign In Entry 1 Patient, Site, Yes Procedure Identified Surgical Consent Yes Confirmed Surgical Site N/A Marked by person performing procedure Airway Hypothermia Risk No Warming Measures No Taken Last Modified By: Christine Urena RN 04/15/21 12:40:56 [facility] - Sign Out Entry 1 RN [...] Modified By: Christine Urena RN 04/15/21 13:26:19 [facility] - Surgical Procedures Entry 1 Entry [...] States 04/15/21 13:16:00 Cecum Reached Anesthesia Type [facility] Specialty Gastroenterology Gastroenterology Wound Class II - Clean-Contaminated III - Contaminated Last Modified By: Christine Urena RN Springate, Samantha, RN 04/15/21 13:26:09 04/15/21 13:26:09 [facility] - Surgical Procedures Audit 04/15/21 13:26:09 Credit Review Manager: [id number] Modifier: [id number] <+> 2 Stop <+> 3 Stop <+> 4 Stop <+> 5 Stop 04/15/21 13:21:39 Credit Review Manager: [id number] Modifier: [id number] 5 <*> Procedure Colon Biopsy 5 <*> Additional Procedure Description Right colon bx 04/15/21 13:19:10 Credit Review Manager: [id number] Modifier: [id number] 2 <*> Procedure Colonoscopy 2 <+> Physician States Cecum Reached <+> 5 Procedure <+> 5 Primary Procedure <+> 5 Primary Surgeon <+> 5 Specialty <+> 5 Start <+> 5 Wound Class <+> 5 Anesthesia Type <+> 5 Additional Procedure Description <+> 5 Physician States Cecum Reached 04/15/21 13:08:07 Credit Review Manager: [id number] Modifier: [id number] 1 <*> Procedure Esophagogastroduodenoscopy 1 <+> Stop 2 <*> Procedure Colonoscopy 2 <*> Start 04/15/21 12:50:00 04/15/21 12:54:05 Credit Review Manager: [id number] Modifier: [id number] <+> 3 Procedure <+> 3 Primary Procedure <+> 3 Primary Surgeon <+> 3 Specialty <+> 3 Start <+> 3 Wound Class <+> 3 Anesthesia Type <+> 4 Procedure <+> 4 Primary Procedure <+> 4 Primary Surgeon <+> 4 Specialty <+> 4 Start <+> 4 Wound Class <+> 4 Anesthesia Type 04/15/21 12:51:27 Credit Review Manager: [id number] Modifier: [id number] <+> 1 Start <+> 2 Start 04/15/21 12:41:16 Credit Review Manager: [id number] Modifier: [id number] 1 <*> Procedure Esophagogastroduodenoscopy 1 <+> Specialty 2 <*> Procedure Colonoscopy 2 <+> Specialty [facility] - Time Out Entry 1 Procedure [...] Modified By: Christine Urena RN 04/15/21 13:19:15 [facility] - Time Out Audit 04/15/21 13:19:15 Credit Review Manager: [id number] Modifier: [id number] 1 <*> Procedure to be Performed Esophagogastroduodenoscopy, Colonoscopy, Duodenal Biopsy, Gastric Biopsy 04/15/21 12:54:10 Credit Review Manager: [id number] Modifier: [id number] 1 <*> Procedure to be Performed Esophagogastroduodenoscopy, Colonoscopy Case Comments <None> Finalized By: Christine Urena RN Document Signatures Signed By: Christine Urena RN 04/15/21 13:26 Electronically signed by Major [facility] Conversion Pace Analyst Cerner at 01/02/2023 6:26 PM CDT documented in this encounter Plan of Treatment Not on file documented as of this encounter Visit Diagnoses Not on filedocumented in this encounter
--- OUTSIDE RECORDS SUMMARY | 2025-04-13 14:53 | XMS_ITS | Encounter Summary ---
Author Organization [employer] ([place], [place], [place], [place]) Address [address] [place] [id number] Care Team Providers Care Wellness Guide Name Role Phone Unavailable Primary Care Provider Unavailabl e Encounter Details Date Type Department Care Team (Late st Contact Info) Description 04/15/2021 Transcribed Document [facility] [place] Family Medicine [address] [place] [address] ProviderPantera MD [address] [place] [address] Social History Tobacco Use Types [...] Historical ProviderMD - 04/15/2021 2:00 AM CDT Customs Compliance Specialist Details Entered On: 04/15/2021 4:24 EDT Performed [...]
--- OUTSIDE RECORDS SUMMARY | 2025-04-13 14:53 | XMS_ITS | Encounter Summary ---
Author Organization [employer] ([place], [place], [place], [place]) Address [address] [place] [address] Care Team Providers Care Tape Rules Printing Machine Operator Name Role Phone Unavailable Primary Care Provider Unavailabl e Encounter Details Date Type Department Care Team (Late st Contact Info) Description 04/15/2021 Transcribed Document [facility] [place] Family Medicine [address] [place] [address] ProviderPantera MD [address] [place] [address] Social History Tobacco Use Types [...] 04/15/2021 12:03 EDT Electronically signed by Major [facility] Conversion Policy Service Coordinator Cerner at 01/02/2023 6:03 PM CDT documented in this encounter Plan of Treatment Not on file documented as of this encounter Visit Diagnoses Not on filedocumented in this encounter
--- OUTSIDE RECORDS SUMMARY | 2025-04-13 14:53 | XMS_ITS | Encounter Summary ---
Author Organization [employer] ([place], [place], [place], [place]) Address [address] [place] [id number] Care Team Providers Care Associate Pathologist Name Role Phone Unavailable Primary Care Provider Unavailabl e Encounter Details Date Type Department Care Team (Late st Contact Info) Description 04/15/2021 Transcribed Document [facility] [place] Family Medicine [address] [place] [address] ProviderPantera MD [address] [place] [address] Social History Tobacco Use Types [...]
--- OUTSIDE RECORDS SUMMARY | 2025-04-13 14:54 | XMS_ITS | Encounter Summary ---
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 What are tips for following this [...] made with white flour. Waffles, pancakes, and Uzbek toast. Bagels. Pretzels. Kaia toast, zwieback, and matzoh. Cooked and dried cereals that do not contain whole grains, added fiber, seeds, or dried fruit. Cornmeal. [place]. Hot and cold cereals made with refined [...] Sports drinks. Herbal tea. Fats and oils [place] oil, canola oil, sunflower oil, flaxseed oil, [...] breads and crackers. Multigrain breads and crackers. [place] bread. Whole grain or multigrain cereals. Cereals with nuts, raisins, or coconut. Bran. Coarse wheat cereals. Granola. High-fiber cereals. Cornmeal or corn bread. Whole grain pasta. Wild or brown rice. Quinoa. Popcorn. Buckwheat. Wheat germ. Vegetables Potato skins. Raw or undercooked vegetables. All beans and calles sprouts. Cooked greens. [place] Plain. Peas. Cabbage. Beets. Broccoli. [place] sprouts. Cauliflower. Mushrooms. Onions. Peppers. Parsnips. Okra. [...] are not allowed. Seasoning and other foods [place] Plain tortilla chips. Soups made with vegetables or [...] provider. Document Revised: 12/23/2019 Document Reviewed: 11/03/2017 [employer] Patient Education ? 2020 [employer] Gastrointestinal Bleeding Gastrointestinal (GI) bleeding is [...] Follow these instructions at home: ??? Take nacb-ueo-niueqbx and prescription medicines only as told by [...] provider. Document Revised: 04/13/2019 Document Reviewed: 04/13/2019 [employer] Patient Education ? 2020 [employer] Infectious Disease Sepsis, Diagnosis, Adult Sepsis [...] these instructions at home: Medicines ??? Take [id number]-pgkuwes and prescription medicines only as told by [...] provider. Document Revised: 04/08/2019 Document Reviewed: 04/08/2019 [employer] Patient Education ? 2020 [employer] documented in this encounter Plan of Treatment Not on file documented as of this encounter Visit Diagnoses Not on filedocumented in this encounter
--- OUTSIDE RECORDS SUMMARY | 2025-04-13 14:54 | XMS_ITS | Patient Health Record ---
Author Organization [facility] Address [address] [place] [address] Care Team Providers Care Cat Operator Name Role Phone Claire Ramirez Primary Care Provider [phone] Delvin Newton Unavailable Unavailable Sheryl Velasquez Unavailable [phone] Migration, Provider Unavailable Unavailable Allergies Allergen (clinical drug ingredient) Drug/Non Drug Allergy documented on EMR Reaction Allergy Type Onset Date Status ARIPIPRAZOLE ANALOGU ES (uncoded) itching Allergy Active aripiprazole Abilify itching Drug Allergy Acti ve aripiprazole ARIPiprazole itching Drug Allergy A ctive Results Component Value Reference Range Notes H-MALBCREA Reviewed date:10/14/2024 10:29:15 AM Interpretation: Performing [...] Sufficient 30-100 ng/mL Potential Toxicity >100 ng/mL CT Scan : Chest, Lung Cancer Screening Reviewed date:01/20/2025 03:12:44 PM Interpretation: Performing Lab: Notes/Report: M-Thyroid Stimulating Hormon e Reviewed date:10/14/2024 10:29:15 [...] 0.3 0.0-0.4 K/mm3 BA# 0.1 0-0.2 K/mm3 Ankle/Brachial Index--Segmen hanna BPs Reviewed date:01/20/2025 03:12:43 PM Interpretation: Performing Lab: Notes/Report: Mammogram : Bilateral Reviewed date:01/23/2025 12:32:30 PM Interpretation: Performing Lab: Notes/Report: DEXA Hip and Spine - Screeni ng Reviewed date:01/20/2025 03:12:44 PM Interpretation: Performing Lab: Notes/Report: Urinalysis Reviewed date:12/26/2024 06:23:01 PM Interpretation: Performing Lab: Notes/Report: Color/Clarity yellow Leuk trace Nitrite pos Urobili 0.2 Protein >=300 pH 5.5 Blood mod Sp. Gr. >=1.030 Ketone trace Bili small Glucose neg CULTURE, URINE, ROUTINE (395 ) Reviewed date:01/12/2025 03:27:05 PM Interpretation: Performing Lab:CB, [facility] [address] [facility], Leonardo RushNrjdJB[address] David Calles Notes/Report: NON-FASTING; NON-FASTING; NON-FASTING CULTURE, URINE, ROUTINE SEE NOTE E.coli COMMENT: Additional non-predominating organism(s) isolated. These organisms, commonly found on external and internal genitalia, are considered colonizers. No further testing performed. CULTURE, URINE, ROUTINE Micro Number: [id number] Test Status: Final Specimen Source: Urine, clean [...] cefdinir, cefpodoxime, cefprozil, cefuroxime, cephalexin and loracarbef. VITAMIN D,25-OH,TOTAL,IA (17 306) Reviewed date:04/19/2024 01:08:53 PM Interpretation: Performing Lab:[facility], [facility] CenterNzztUW[address] David Calles Notes/Report: NON-FASTING; NON-FASTING; NON-FASTING; NON-FASTING [...] D, (D2,D3), LC/MS/MS is recommended: order code 73357 (patients >2yrs). See Note 1 Note 1 For additional information, please refer to http://education.S[employer].Playhem/faq/HXD707 (This link is being provided for informational/ educational purposes only.) TSH W/REFLEX TO FT4 (89940) Reviewed date:01/12/2025 03:27:05 PM Interpretation: Performing Lab:[facility] [address], [place] RjbwNL[address] David Calles Notes/Report: NON-FASTING; NON-FASTING; NON-FASTING TSH W/REFLEX TO FT4 1.05 0.40-4.50 mIU/L FERRITIN (457) Reviewed date:04/19/2024 01:08:53 PM Interpretation: Performing Lab:[facility] [address], [place] SoygNK[address] David Calles Notes/Report: NON-FASTING; NON-FASTING; NON-FASTING; NON-FASTING FERRITIN 88 16-288 ng/mL HEMOGLOBIN A1c (496) Reviewed date:01/12/2025 03:27:05 PM Interpretation: Performing Lab:[facility], [place] ZybjQJ[address] David Calles Notes/Report: NON-FASTING; NON-FASTING; NON-FASTING HEMOGLOBIN [...] this should be confirmed with a follow-up CBC (INCLUDES DIFF/PLT) (639 9) Reviewed date:04/19/2024 01:08:53 PM Interpretation: Performing Lab:[facility] [address], [place] RsoaWZ[address] David Calles Notes/Report: NON-FASTING; NON-FASTING; NON-FASTING; NON-FASTING WHITE BLOOD CELL COUNT 8.3 3.8-10.8 Thousand/ uL RED BLOOD CELL COUNT 4.40 3.80-5.10 Million/uL HEMOGLOBIN 13.6 11.7-15.5 g/dL HEMATOCRIT 43.0 35.0-45.0 % MCV 97.7 80.0-100.0 fL MCH 30.9 27.0-33.0 pg MCHC 31.6 32.0-36.0 g/dL RDW 13.3 11.0-15.0 % PLATELET COUNT 256 140-400 Thousand/uL MPV 9.8 7.5-12.5 fL ABSOLUTE NEUTROPHILS 3561 8492-9961 cells/uL ABSOLUTE LYMPHOCYTES 3884 850-3900 cells/uL ABSOLUTE MONOCYTES 523 200-950 cells/uL ABSOLUTE EOSINOPHILS 249 15-500 cells/uL ABSOLUTE BASOPHILS 83 0-200 cells/uL NEUTROPHILS 42.9 LYMPHOCYTES 46.8 MONOCYTES 6.3 EOSINOPHILS 3.0 BASOPHILS 1.0 BASIC METABOLIC PANEL (86333 ) Reviewed date:01/12/2025 03:27:05 PM Interpretation: Performing Lab:[facility] [address], I Love QCScggJU[address] David Calles Notes/Report: NON-FASTING; NON-FASTING; NON-FASTING GLUCOSE [...] 33 20-32 mmol/L CALCIUM 9.6 8.6-10.4 mg/dL COMPREHENSIVE METABOLIC PANE L (50449) Reviewed date:04/19/2024 01:08:52 PM Interpretation: Performing Lab:[facility] [address] [employer] [facility], I Love QCIqvfZP[address] David Calles Notes/Report: NON-FASTING; NON-FASTING; NON-FASTING; NON-FASTING [...] 13 10-35 U/L ALT 8 6-29 U/L Reason For Referral Reason Mammogram DEXA sca n Screening CT Chest Diagnosis 1 Medicare annual [facility] visit, subsequent (Z00.00) Referral Organization [facility] Referring Provider First Name Claire Referring Provider Last Name Ashley [facility]erred [facility] Referred Address [address] [place] [phone], Referred Provider Specialty Diagnostic R adiology General Notes Estefani Huang 2024 03:36:01 PM >sent to [facility] to schedule, Estefani Huang 10/07/2024 04:27:59 PM >checked [facility] Referral Priority Routine Referral Appointment Date 10/25/2024 Reason Bilat lower extremit y SVEN Deyong Diagnosis 1 Dependent rubor (L53 .9) Referral Organization [facility] Referring Provider First Name Claire Referring Provider Last Name Ashley Referring Provider [facility] ctice Referred Organization [facility] Referred Address [address] [place] [phone], Referred Provider Specialty Diagnostic R adiology General Notes Estefani Huang 2024 08:52:49 AM >sent to [facility] Referral Priority Routine Medications Medication SIG (Take, Route, Frequency, Duration) Notes Start Date End Date Status Nicotine 21 MG/24HR 1 patch to skin Transdermal Once a day; Duration: 30 days 04/05/2025 Active PORTABLE OXYGEN (OXYLITE) DX: COPD *Please review for potential replacement for e-prescription and drug interaction check* 03/18/2023 Active Vitamin D (Ergocalciferol) 1.25 MG (79652 UT) 1 cap(s) orally once a week; Duration: 30 day(s) Active Aspirin 81 MG 1 tab(s) orally once a day; Duration: 30 day(s) Active Trelegy Ellipta 100 MCG-62.5 MCG-25 MCG/INH 1 PUFF(S) INHALED ONCE A DAY; Duration: 30 DAYS *Please review and pick correct strength-formulati on from [employer] options. If intended option is not shown, discontinue and re-order from Quick Search* 08/24/2023 Active Montelukast Sodium 10 MG 1 tab(s) orally once a day; Duration: 90 days Active POTASSIUM CHLORIDE (TZP-TMRJ-DLX 10) 10 MEQ TAKE ONE TABLET BY [...] review and pick correct strength-formulati on from [employer] options. If intended option is not shown, [...] review and pick correct strength-formulati on from [employer] options. If intended option is not shown, [...] Status W/U Status Risk Notes Problem Hypothyroidism (62144887) Hypothyroidism, unspecified (E03.9) Active confirmed Problem Type 2 diabetes mellitus with other specified complication (E11.69) Active confirmed Problem Tobacco user (042270722) Nicotine dependence, cigarettes, uncomplicated (F17.210) Active confirmed Problem Anxiety disorder (884654361) Anxiety disorder, unspecified (F41.9) Active confirmed Problem Psychophysiologic insomnia (672235257) Psychophysiologic insomnia (F51.04) Active confirmed Problem Obstructive sleep apnea syndrome (disorder) (51638628) Obstructive sleep apnea (adult) (pediatric) (G47.33) Active confirmed Problem Chronic pain (50822300) Other chronic pain (G89.29) Active confirmed Problem Paroxysmal atrial fibrillation (674984997) Paroxysmal atrial fibrillation (I48.0) Active confirmed Problem Chronic respiratory failure (42503623) Chronic respiratory failure, unspecified whether with hypoxia or hypercapnia (J96.10) Active confirmed Problem Chronic respiratory failure (64635641) Chronic respiratory failure with hypoxia (J96.11) Active confirmed Problem Localized, primary osteoarthritis of the shoulder region (872294692) Primary osteoarthritis, right shoulder (M19.011) Active confirmed Problem Localized, primary osteoarthritis of the shoulder region (233417833) Primary osteoarthritis, left shoulder (M19.012) Active confirmed Problem Fibromyalgia (485598226) Fibromyalgia (M79.7) Active confirmed Problem Weakness (45326184) Weakness (R53.1) Active con firmed Problem Dependence on enabling machine or device (610650159) Dependence on other enabling machines and devices (Z99.89) Active confirmed Problem Anxiety (99750526) Anxiety (F41.9) Active confi rmed Problem Vitamin D deficiency (39386446) Vitamin D deficiency (E55.9) Active confirmed Problem Essential hypertension (15322999) Essential hypertension (I10) Active confirmed Problem Acute exacerbation of chronic obstructive airways disease (308055916) COPD exacerbation (J44.1) Active confirmed Problem Body mass index 30.00 to 34.99 (400641535212435) BMI 31.0-31.9,adult (Z68.31) Active confirmed Problem Chronic pain syndrome (313960581) Chronic pain disorder (G89.4) Active confirmed Problem Gastric reflux (523285088) Gastric reflux (K21.9) Active confirmed Problem BMI 30+ - obesity (265511041) BMI 32.0-32.9,adult (Z68.32) Active confirmed Problem Hyperlipidemia (68809668) Hyperlipidemia, unspecified (E78.5) Active confirmed Problem 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, 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) Active confirmed Problem Cigarette smoker (48962962) Cigarette smoker (F17.210) Active confirmed Problem COPD - Chronic obstructive pulmonary disease (81546061) Chronic obstructive pulmonary disease, unspecified COPD type (J44.9) Active confirmed Problem Obesity (589287891) Non morbid o besity, unspecified obesity type (E66.9) Active confirmed Problem Acute exacerbation of chronic obstructive airways disease (443409442) Acute exacerbation of COPD with asthma (J44.1) Active confirmed Problem Overactive urinary bladder (disorder) (259002825) OAB (overactive bladder) (N32.81) Active confirmed Problem Iron deficiency anemia (01287504) Iron deficiency anemia, unspecified iron deficiency anemia type (D50.9) Active confirmed Problem Body mass index 25-29 - overweight (027169772) BMI 26.0-26.9,adult (Z68.26) Active confirmed Problem Weight loss advised (959479256) Weight loss counseling, encounter for (Z71.3) Active confirmed Problem Increased hemoglobin (359899790) Elevated hemoglobin (D58.2) Active confirmed Problem Microcytic anemia (385559518) Microcytic anemia (D50.9) Active confirmed Problem Type II diabetes mellitus without complication (554245238) Type 2 diabetes mellitus without complication, without long-term current use of insulin (E11.9) Active confirmed Problem Type II diabetes mellitus without complication (579374935) Controlled type 2 diabetes mellitus without complication, without long-term current use of insulin (E11.9) Active confirmed Problem Pica (52969542) Pica (F50.89) Active confirmed Problem Mixed incontinence (822380878) Urinary incontinence, mixed (N39.46) Active confirmed Problem Anxiety state (332108880) Anxiety state, unspecified (F41.1) Active confirmed Problem Postmenopausal osteoporosis (415360976) Postmenopausal osteoporosis (M81.0) Active confirmed Problem Major depression, single episode (03047393) Chronic major depressive disorder (F32.9) Active confirmed Problem Body mass index 30.00 to 34.99 (533319155841438) Adult BMI 31.0-31.9 kg/sq m (Z68.31) Active confirmed Problem Degeneration of thoracic intervertebral disc (04672052) Thoracic degenerative disc 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) Active confirmed Problem Chronic obstructive pulmonary disease (32655867) Advanced COPD (J44.9) Active confirmed Problem Chronic hypoxemic respiratory failure (064543009) Chronic hypoxemic respiratory failure (J96.11) Active confirmed Problem Cough (90943345) Cough (R05.9) Active confirmed Problem Vitamin D intoxication (34768201) Vitamin D intoxication (E67.3) Active confirmed Vital [...] 03/06/2025 Encounters Encounter Location Date Provider Diagnosis [facility] [address] [facility] [address] [place] [address] 12/17/2024 Provider Migration Chronic obstructive pulmonary disease, unspecified COPD type J44.9 ; Medicare annual wellness visit, subsequent Z00.00 ; Chronic major depressive disorder F32.9 and Advanced COPD J44.9 [facility] [address] [facility] [address] [place] [address] 04/18/2024 Claire Ramirez Psychophysiologic insomnia F51.04 ; Other chronic pain G89.29 ; Vitamin D intoxication E67.3 ; Elevated hemoglobin D58.2 ; Elevated hematocrit R71.8 ; Type 2 diabetes mellitus with other specified complication E11.69 and Hyperlipidemia, unspecified E78.5 [facility] [address] [facility] [address] [place] [address] 06/30/2024 Claire Ramirez Immunization(s) administered Z23 ; Psychophysiologic insomnia F51.04 ; Other chronic pain G89.29 and Chronic constipation K59.09 [facility] [address] [facility] [address] [place] [address] 10/04/2024 Claire Ramirez Psychophysiologic insomnia F51.04 ; [...] tobacco use Z87.891 and Hypothyroidism, unspecified E03.9 [facility] [address] [place] [address] 12/26/2024 Claire Ramirez Dysuria R30.0 ; Acut e UTI N39.0 and Dependent rubor L53.9 [facility] [address] [place] [address] 01/09/2025 Claire Ramirez Psychophysiologic insomnia F51.04 ; Other chronic pain G89.29 ; Type 2 diabetes mellitus with other specified complication E11.69 ; Chronic major depressive disorder F32.9 ; Essential hypertension I10 ; Advanced COPD J44.9 ; Hypothyroidism, unspecified E03.9 and Dysuria R30.0 [facility] [address] [place] [address] 03/06/2025 Claire Ramirez Fall from standing, subsequent encounter W19.XXXD ; Chest wall pain R07.89 ; Closed nondisplaced fracture of third metacarpal bone of left hand, unspecified portion of metacarpal, sequela S62.303S ; Contusion of right knee, subsequent encounter S80.01XD and Contusion of right lower leg, subsequent encounter S80.11XD [facility] [address] [place] [address] 07/20/2024 Clarie Ramirez [facility] [address] [place] [address] 07/26/2024 Claire Ramirez [facility] [address] [place] [address] 10/04/2024 Claire Ashley Breast cancer screen ing by mammogram Z12.31 ; History of nicotine dependence Z87.891 and Asymptomatic postmenopausal state Z78.0 [facility] [address] [place] [address] 10/14/2024 Claire Ashley [facility] [address] [place] [address] 11/10/2024 Claire Ashley [facility] [address] [place] [address] 12/27/2024 Claire Ashley Dependent rubor L53. 9 [facility] [address] [place] [address] 01/05/2025 Claire Ashley [facility] [address] [place] [address] 01/12/2025 Claire Ashley [facility] [address] [place] [address] 03/06/2025 Claire Ashley [facility] [address] [place] [address] 03/08/2025 Claire Ashley [facility] [address] [place] [address] 03/09/2025 Claire Ashley [facility] [address] [place] [address] 04/05/2025 Claire Ashley Assessments Encounter Date Diagnosis (ICD Code) Assessment Notes Treatment Notes Treatment Clinical Notes Section Notes 10/04/2024 Psychophysiologic insomnia (ICD-10 - F51.04) Again [...] precautions including fever, vomiting, intractable pain, etc. 04/18/2024 Psychophysiologic insomnia (ICD-10 - F51.04) Again rec stop Benadryl and then wean tylenol PM. Continue gabapentin for now while pain pump adjustments are ongoing. Continue FU with Dr Hinojosa. Return precautions reviewed 04/18/2024 Other chronic pain (ICD-10 - G89.29) 06/30/2024 Immunization(s) administered (ICD-10 - Z23) 12/27/2024 Dependent rubor (ICD-10 - L53.9) 01/09/2025 [...] take half a tablet along with 1 ihcz-erx-qmwptxe acetaminophen every 6 hours as needed for [...] History of nicotine dependence (ICD-10 - Z87.891) 04/18/2024 Vitamin D intoxication (ICD-10 - E67.3) supplement stopped about 3 months ago, repeat level today 06/30/2024 Psychophysiologic insomnia (ICD-10 - F51.04) doing better overall WRT sleep and pain management, no changes made today. No indication for repeat endoscopies at this time. Can stop Linzess if loose stools are bothersome 12/26/2024 Dependent rubor (ICD-10 - L53.9) rec SVEN as initial workup, discussed possible venous vs arterial disease and return precautions 10/04/2024 Other chronic pain (ICD-10 - G89.29) 10/04/2024 Type 2 diabetes mellitus with other specified complication (ICD-10 - E11.69) Continue current therapy, update labs. Continue statin therapy. Low-normal BP, hold ACEI/ARB for now. 06/30/2024 Other chronic pain (ICD-10 - G89.29) 04/18/2024 Elevated hemoglobin (ICD-10 - D58.2) likely due to tobacco use, chronic hypoxemia, repeat today 10/04/2024 Asymptomatic postmenopausal state (ICD-10 - Z78.0) 01/09/2025 Chronic major depressive disorder (ICD-10 - F32.9) stable on current regimen 03/06/2025 Contusion of right knee, subsequent encounter (ICD-10 - S80.01XD) 03/06/2025 Contusion of right lower leg, subsequent encounter (ICD-10 - S80.11XD) 01/09/2025 Essential hypertension (ICD-10 - I10) history of HTN but low normal today, monitor 04/18/2024 Elevated hematocrit (ICD-10 - R71.8) 06/30/2024 Chronic constipation (ICD-10 - K59.09) 10/04/2024 Hyperlipidemia, unspecified (ICD-10 - E78.5) continue rosuvastatin 10/04/2024 Polypharmacy (ICD-10 - Z79.899) reviewed risks and precautions to prevent complications 04/18/2024 Type 2 diabetes mellitus with other specified complication (ICD-10 - E11.69) A1C 6.1 on single oral agent, does not need CGM. Continue statin therapy. Low-normal BP, hold ACEI/ARB for now. Needs urine micro next visit, unable to void today 01/09/2025 Advanced COPD (ICD-10 - J44.9) continue Trelegy 01/09/2025 Hypothyroidism, unspecified (ICD-10 - E03.9) 04/18/2024 Hyperlipidemia, unspecified (ICD-10 - E78.5) continue rosuvastatin 10/04/2024 Chronic major depressive disorder (ICD-10 - F32.9) stable on current regimen 01/09/2025 Dysuria (ICD-10 - R30.0) 10/04/2024 Chronic hypoxemic respiratory failure (ICD-10 - J96.11) continue supplemental O2 at night and as needed during the day 10/04/2024 Essential hypertension (ICD-10 - I10) history [...] Next Appt Details Provider Name:Claire Irving ce, 04/17/2025 11:15:00 AM, [address], [place], [address], Insurance Providers Payer Name Payer Address Payer Phone Subscriber Number Group Number Insured Name Patient Relationship to Insured Coverage Start Date Coverage End Date [employer] Dual [address] [address] [place] [id number] Sindy Lema Self - patient is the [...]
--- OUTSIDE RECORDS SUMMARY | 2025-04-13 14:54 | XMS_ITS | Encounter Summary ---
Author Organization [employer] ([place], [place], [place], [place]) Address [address] [place] [address] Care Team Providers Care Shotgun Shell Assembly Machine Operator Name Role Phone Unavailable Primary Care Provider Unavailabl e Encounter Details Date Type Department Care Team (Late st Contact Info) Description 04/18/2021 Transcribed Document [facility] Family Medicine [address] [place] [address] ProviderPantera MD [address] [place] [address] Social History Tobacco Use Types [...] 04/18/2021 3:54 EDT Electronically signed by Major [facility] Conversion Sterile Process Coordinator Cerner at 01/02/2023 6:20 PM CDT documented in this encounter Plan of Treatment Not on file documented as of this encounter Visit Diagnoses Not on filedocumented in this encounter
--- OUTSIDE RECORDS SUMMARY | 2025-04-13 14:54 | XMS_ITS | Encounter Summary ---
Author Organization [employer] ([place], [place], [place], [place]) Address [address] [place] [address] Care Team Providers Care Rn International Name Role Phone Unavailable Primary Care Provider Unavailabl e Encounter Details Date Type Department Care Team (Late st Contact Info) Description 04/18/2021 Transcribed Document [facility] Family Medicine [address] [place] [address] ProviderPantera MD [address] [place] [address] Social History Tobacco Use Types [...]
--- OUTSIDE RECORDS SUMMARY | 2025-04-13 14:54 | XMS_ITS | Encounter Summary ---
Author Organization [employer] ([place], [place], [place], [place]) Address [address] [place] [address] Care Team Providers Care Clothes Designer Name Role Phone Unavailable Primary Care Provider Unavailabl e Encounter Details Date Type Department Care Team (Late st Contact Info) Description 04/16/2021 Transcribed Document [facility] Radiology [address] [place] [address] Provider, Olga Mott MD Social History Tobacco Use Types Packs/Day Years Used Date Smoking Tobacco: Never Assessed Comments Unknown Sex and Gender Information Value Date Recorded Sex Assigned at Not on file Legal Sex Female 7:22 PM CDT Gender Identity Not on file Sexual Orientation Not on file documented as of this encounter Miscellaneous Notes * Cerner Conversion Note - [facility] Pantera ProviderMD - 04/16/2021 1:30 PM EDT [...] Stand Device : Belt, gait, Other: B INFECTION PREVENTION SPECIALIST Stand to Sit Device : Belt, gait, Walker, front wheel Dreek Rodirguez PHYSICAL THERAPIST NON-EXEMPT - 04/17/2021 13:18 EDT [...] PHYSICAL THERAPIST NON-EXEMPT - 04/17/2021 13:18 EDT Halfway Goals Mobility/Bed Mobility LTG PT Grid Goal [...] health. This was relayed to patient's director of casework department after session. Plan for Treatment : Continue [...]
--- OUTSIDE RECORDS SUMMARY | 2025-04-13 14:54 | XMS_ITS | Encounter Summary ---
Author Organization [employer] ([place], [place], [place], [place]) Address [address] [place] [address] Care Team Providers Care Ends Breakage Clerk Name Role Phone Unavailable Primary Care Provider Unavailabl e Encounter Details Date Type Department Care Team (Late st Contact Info) Description 04/18/2021 Transcribed Document [facility] [place] Family Medicine [address] [place] [address] ProviderPantera MD [address] [place] [address] Social History Tobacco Use Types Packs/Day Years Used Date Smoking Tobacco: Never Assessed Comments Unknown Sex and Gender Information Value Date Recorded Sex Assigned at Not on file Legal Sex Female 7:22 PM CDT Gender Identity Not on file Sexual Orientation Not on file documented as of this encounter Miscellaneous Notes * Cerner Conversion Note - Pantera Tineo MD - 04/18/2021 10:18 AM CDT Final Discharge Planning Entered On: 04/18/2021 10:25 EDT Performed On: 04/18/2021 10:18 EDT by Ramón Hurst, SEXER NON-EXEMPT Final Discharge Planning Discharge Arrangements : Patient Post-Acute Information Patient Name: SINDY NGUYEN [facility]: [id number] Gender: Female : [birth year] Age: 75 Years [...] Services (Related/SOC within 3 days)-06 Ramón Hurst SEXER NON-EXEMPT - 04/18/2021 10:18 EDT Final Narrative Note Final Narrative Note : Pt was seen at bedside. She is to D/C today. Pt plans to live with a friend in [place], [place]. Updated address was provided to [employer] [facility] [employer] [facility]. HH will start tomorrow. Walker will be delivered later today to friend's house. Pt's friend will be providing transportation. IMM provided. She does not wish to appeal D/C. No further issues or cocnerns. MD & RN are aware of plan. CM has cleared for D/C. Ramón Hurst SEXER NON-EXEMPT - 04/18/2021 10:18 EDT documented in this encounter Plan of Treatment Not on file documented as of this encounter Visit Diagnoses Not on filedocumented in this encounter
--- OUTSIDE RECORDS SUMMARY | 2025-04-13 14:54 | XMS_ITS | Encounter Summary ---
Author Organization [employer] ([place], [place], [place], [place]) Address [address] [place] [address] Care Team Providers Care Western Tack Assembly Line Worker Name Role Phone Unavailable Primary Care Provider Unavailabl e Encounter Details Date Type Department Care Team (Late st Contact Info) Description 04/16/2021 Transcribed Document [facility] [place] [address] [place] [address] ProviderPantera MD [address] [place] [address] Social History Tobacco Use Types [...] Health Plan: HUMANA CHOICE PPO Policy Number: [id number] Authorization Number: Insurance Primary Name : HUMANA CHOICE PPO Policy Number: [id number] Authorization Status-Primary : Awaiting callback Reference Number-Primary : Pend ref #[id number] Authorized Service Begin Date-Primary : 04/14/2021 EDT [...] 04/16/2021 12:58 EDT Electronically signed by Major [facility] Conversion Assembler Finger Buffs Cerner at 01/02/2023 6:26 PM CDT documented in this encounter Plan of Treatment Not on file documented as of this encounter Visit Diagnoses Not on filedocumented in this encounter
--- OUTSIDE RECORDS SUMMARY | 2025-04-13 14:54 | XMS_ITS | Encounter Summary ---
Author Organization [employer] ([place], [place], [place], [place]) Address [address] [place] [address] Care Team Providers Care Wholesale Account Manager Name Role Phone Unavailable Primary Care Provider Unavailabl e Encounter Details Date Type Department Care Team (Late st Contact Info) Description 04/18/2021 Transcribed Document [facility] [place] [address] [place] [address] ProviderPantera MD [address] [place] [address] Social History Tobacco Use Types [...] Tineo MD - 04/18/2021 11:18 AM CDT [address] [place] [address] Patient Copy Patient Information: Name: SINDY NGUYEN Current Date: 04/18/2021 11:18:07 : 1945 Patient Address: [address] [place] [address] [facility] [id number] Patient Attending Physician: TATYANA MEDINA MD Primary Care Provider: SIMON, NOT LISTED Primary Care Provider Phone: Discharge Diagnosis: GI bleed Comment: Follow-up Instructions: With: Address: When: DENNIS ZAMORANO [address] [place] [address], [address] [place] [address] Business (1) Within 2 to 4 days Comments: at the outside hospital you had some abnormalities on CT HEAD. Please discuss this with Dr. Zamorano as these are chronic appearing changes and he needs to follow. Nothing emergent With: Address: When: ABE العراقي [address] [place] [address], [address] [place] [address] [facility] ([facility] Within 2 to 4 weeks Comments: regarding [...] nasal (Qnasl 80 mcg/inh nasal spray) 2 [place](s) Nasal Every Day as needed Nasal Congestion. [...] Assistance with quitting is available by contacting 3-420-AXMQNOW. This is a free resource providing counseling, [...] Be sure to sign up for the Position[employer] patient portal, which gives you 06/04 access to your medical information ??? including these discharge instructions ??? using your computer, smartphone, or tablet. Just go to [employer] to get started. Questions? Call . [facility] would like to thank you for allowing us to assist you with your healthcare needs. YANCY Quarles BRENDA K, (or sales representative health insurance) have received the above patient education materials/instructions and have verbalized understanding: Patient Signature _ Date/Time Patient Oil Field Equipment Mechanic Supervisor Signature (if needed) Date/Time Clinician/Hospital Oil Field Equipment Mechanic Supervisor Signature (if needed) Date/Time Electronically signed by Major [facility] Conversion Telecommunication Operator Herbner at 01/02/2023 6:09 PM CDT documented in this encounter Plan of Treatment Not on file documented as of this encounter Visit Diagnoses Not on filedocumented in this encounter
--- OUTSIDE RECORDS SUMMARY | 2025-04-13 14:54 | XMS_ITS | Encounter Summary ---
Author Organization [employer] ([place], [place], [place], [place]) Address [address] [place] [address] Care Team Providers Care Primary Special Educator Name Role Phone Unavailable Primary Care Provider Unavailabl e Encounter Details Date Type Department Care Team (Late st Contact Info) Description 04/16/2021 Transcribed Document [facility] [place] Family Medicine [address] [place] [address] ProviderPantera MD [address] [place] [address] Social History Tobacco Use Types [...] Historical ProviderMD - 04/16/2021 2:00 AM CDT Silk Weaver Details Entered On: 04/16/2021 2:31 EDT Performed [...] EDT Electronically signed by Olga Gonsalves Conversion Consumer Relations Complaint Clerk Cerner at 01/02/2023 6:15 PM CDT documented in this encounter Plan of Treatment Not on file documented as of this encounter Visit Diagnoses Not on filedocumented in this encounter
--- OUTSIDE RECORDS SUMMARY | 2025-04-13 14:54 | XMS_ITS | Encounter Summary ---
Author Organization [employer] ([place], [place], [place], [place]) Address [address] [place] [address] Care Team Providers Care Customer Support Manager Name Role Phone Unavailable Primary Care Provider Unavailabl e Encounter Details Date Type Department Care Team (Late st Contact Info) Description 04/16/2021 Transcribed Document [facility] [place] Family Medicine [address] [place] [address] ProviderPantera MD [address] [place] [address] Social History Tobacco Use Types [...] 04/16/2021 15:22 EDT Electronically signed by Major [facility] Conversion Radio Maintainer Cerner at 01/02/2023 6:10 PM CDT documented in this encounter Plan of Treatment Not on file documented as of this encounter Visit Diagnoses Not on filedocumented in this encounter
--- OUTSIDE RECORDS SUMMARY | 2025-04-13 14:54 | XMS_ITS | Encounter Summary ---
Author Organization [employer] ([place], [place], [place], [place]) Address [address] [place] [address] Care Team Providers Care E Learning Manager Name Role Phone Unavailable Primary Care Provider Unavailabl e Encounter Details Date Type Department Care Team (Late st Contact Info) Description 04/18/2021 Transcribed Document [facility] [place] [address] [place] [address] ProviderPantera MD [address] [place] [address] Social History Tobacco Use Types [...] On: 04/18/2021 14:23 EDT by Vanessa Hilliard, [facility] Provider Status : EST [...] at ED : Other Primary Language : [place]ian [facility] Comment : Patient needs follow up appointments. Called offices and Salvador Zamorano' office had already closed. Patient to call in AM. Called and scheduled appointment with Dr. العراقي. Follow Up Needed : No Vanessa Hilliard, Charrer - 04/18/2021 14:23 EDT documented in this encounter Plan of Treatment Not on file documented as of this encounter Visit Diagnoses Not on filedocumented in this encounter
--- OUTSIDE RECORDS SUMMARY | 2025-04-13 14:54 | XMS_ITS | Encounter Summary ---
Author Organization [employer] ([place], [place], [place], [place]) Address [address] [place] [address] Care Team Providers Care Boiler Shop Mechanic Name Role Phone Unavailable Primary Care Provider Unavailabl e Encounter Details Date Type Department Care Team (Late st Contact Info) Description 04/18/2021 Transcribed Document [facility] [place] Family Medicine [address] [place] [address] ProviderPantera MD [address] [place] [address] Social History Tobacco Use Types [...]
--- OUTSIDE RECORDS SUMMARY | 2025-04-13 14:54 | XMS_ITS | Encounter Summary ---
Author Organization [employer] ([place], [place], [place], [place]) Address [address] [place] [address] Care Team Providers Care Ammunition And Explosives Handler Name Role Phone Unavailable Primary Care Provider Unavailabl e Encounter Details Date Type Department Care Team (Late st Contact Info) Description 04/19/2021 Transcribed Document [facility] [place] [address] [place] [address] ProviderPantera MD [address] [place] [address] Social History Tobacco Use Types [...] Health Plan: HUMANA CHOICE PPO Policy Number: [id number] Authorization Number: Insurance Primary Name : HUMANA CHOICE PPO Policy Number: [id number] Authorization Status-Primary : Denial - admission Reference Number-Primary : Pend ref #[id number] Authorized Service Begin Date-Primary : 04/14/2021 EDT Authorization Comments-Primary : [facility] stated this one is pending approval Historical [...]
--- OUTSIDE RECORDS SUMMARY | 2025-04-13 14:54 | XMS_ITS | Encounter Summary ---
Author Organization [employer] ([place], [place], [place], [place]) Address [address] [place] [address] Care Team Providers Care Repair Servicer Name Role Phone Unavailable Primary Care Provider Unavailabl e Encounter Details Date Type Department Care Team (Late st Contact Info) Description 04/18/2021 Transcribed Document [facility] [place] [address] [place] [address] ProviderPantera MD [address] [place] [address] Social History Tobacco Use Types [...]
--- OUTSIDE RECORDS SUMMARY | 2025-04-13 14:54 | XMS_ITS | Encounter Summary ---
Author Organization [employer] ([place], [place], [place], [place]) Address [address] [place] [address] Care Team Providers Care Clean Up Worker Name Role Phone Unavailable Primary Care Provider Unavailabl e Encounter Details Date Type Department Care Team (Late st Contact Info) Description 04/17/2021 Transcribed Document [facility] [place] Family Medicine [address] [place] [address] ProviderPantera MD [address] [place] [address] Social History Tobacco Use Types [...]
--- OUTSIDE RECORDS SUMMARY | 2025-04-13 14:54 | XMS_ITS | Clinical Summary ---
Author Organization [employer] ([place], [place], [place], [place]) Address [address] [place] [address] Care Team Providers Care City Superintendent Name Role Phone Unavailable Primary Care Provider [...]
--- OUTSIDE RECORDS SUMMARY | 2025-04-13 14:54 | XMS_ITS | Encounter Summary ---
Author Organization [employer] ([place], [place], [place], [place]) Address [address] [place] [address] Care Team Providers Care Flatcar Whacker Name Role Phone Unavailable Primary Care Provider Unavailabl e Encounter Details Date Type Department Care Team (Late st Contact Info) Description 04/18/2021 Transcribed Document [facility] [place] [address] [place] [address] ProviderPantera MD [address] [place] [address] Social History Tobacco Use Types [...] Tineo MD - 04/18/2021 3:04 PM CDT [facility] [place] [address] SINDY NGUYEN :1945 Visit Time:04/14/2021 Your Visit [...] seen on imaging at [facility] Where: [address] [facility] [address] [place] [address]- Business (1) Follow Up with DENNIS ZAMORANO [...] [address] [place] [address] Business (1) Medications What How Much When [...] (Qnasl 80 mcg/ inh nasal spray) 2 [place](s) Nasal Every Day as needed for Nasal [...] that you work with a diet and aquarium specialist (dietitian). What are tips for following [...] made with white flour. Waffles, pancakes, and Chinese toast. Bagels. Pretzels. Kaia toast, zwieback, and matzoh. Cooked and dried cereals that do not contain whole grains, added fiber, seeds, or dried fruit. Cornmeal. [place]. Hot and cold cereals made with refined [...] Sports drinks. Herbal tea. Fats and oils Leggett oil, canola oil, sunflower oil, flaxseed oil, [...] breads and crackers. Multigrain breads and crackers. [place] bread. Whole grain or multigrain cereals. Cereals with nuts, raisins, or coconut. Bran. Coarse wheat cereals. Granola. High-fiber cereals. Cornmeal or corn bread. Whole grain pasta. Wild or brown rice. Quinoa. Popcorn. Buckwheat. Wheat germ. Vegetables Potato skins. Raw or undercooked vegetables. All beans and calles sprouts. Cooked greens. [place]. Peas. Cabbage. Beets. Broccoli. [place] sprouts. Cauliflower. Mushrooms. Onions. Peppers. Parsnips. [...] are not allowed. Seasoning and other foods [place] tortilla chips. Soups made with vegetables or [...] provider. Document Revised: 12/23/2019 Document Reviewed: 11/03/2017 [employer] Patient Education ?? 2020 [employer]m. Sepsis, Diagnosis, Adult Sepsis is a serious [...] these instructions at home: Medicines ??? Take hymr-xmr-ktldesb and prescription medicines only as told by [...] provider. Document Revised: 04/08/2019 Document Reviewed: 04/08/2019 [employer] Patient Education ?? 2020 [employer] Gastrointestinal Bleeding Gastrointestinal (GI) bleeding is [...] Follow these instructions at home: ??? Take fijh-wcr-docjtzm and prescription medicines only as told by [...] provider. Document Revised: 04/13/2019 Document Reviewed: 04/13/2019 [employer] Patient Education ?? 2020 [employer] Emergency Awareness and Preventative Care STROKE [...] Assistance with quitting is available by contacting 4-410-SIAZ-NOW. This is a free resource providing counseling, [...] range between ( 0.0 and 7.0 ) [place] #: 1.39 K/uL -- Normal range between ( 0.16 and 1.00 ) [place]os #: 0.02 x10(3)/uL -- Normal range between ( 0.00 and 0.80 ) [place] %: 8.8 % -- Normal range between [...] was given the opportunity to ask questions. Patient/Oxygen Therapist Name: Patient/Oxygen Therapist Signature: Relationship to Patient: Clinician/Hospital Oxygen Therapist Signature: Date: documented in this encounter Plan of Treatment Not on file documented as of this encounter Visit Diagnoses Not on filedocumented in this encounter
--- OUTSIDE RECORDS SUMMARY | 2025-04-13 14:54 | XMS_ITS | Encounter Summary ---
Author Organization [email or web address] ([place], [place], [place], [place]) Address [address] [place] [address] Care Team Providers Care Highway Maintenance Worker Name Role Phone Unavailable Primary Care Provider Unavailabl e Encounter Details Date Type Department Care Team (Late st Contact Info) Description 04/18/2021 Transcribed Document [facility] [place] [address] [place] [address] ProviderPantera MD [address] [place] [address] Social History Tobacco Use Types [...] Historical ProviderMD - 04/18/2021 2:00 AM CDT Director Government Details Entered On: 04/18/2021 3:42 EDT Performed [...]
--- OUTSIDE RECORDS SUMMARY | 2025-04-13 14:54 | XMS_ITS | Encounter Summary ---
Author Organization [employer] ([place], [place], [place], [place]) Address [address] [place] [address] Care Team Providers Care Virtual Customer Assistant Name Role Phone Unavailable Primary Care Provider Unavailabl e Encounter Details Date Type Department Care Team (Late st Contact Info) Description 04/16/2021 Transcribed Document [facility] [place] [facility] [place] [address] ProviderPantera MD [address] [place] [address] Social History Tobacco Use Types [...] On: 04/16/2021 15:47 EDT by Ramón Hurst, REPRINT SORTER NON-EXEMPT Care Management Progress Note Discharge Arrangements : Patient Post-Acute Information Patient Name: SINDY NGUYEN [facility]: [id number] Gender: Female : [birth year] Age: 75 Years No Post-Acute Placement(s) Listed No Post-Acute Service(s) Listed No Cur[place] Referral(s) Listed Discharge Options Discussed with Patient : Acute rehabilitation, Discharge transportation, DME, Home Health, senior care, Short term rehabilitation Barriers to Discharge Identified : Clinical Condition of Patient Barriers to Discharge Unresolved : Clinical Condition of Patient Patient Discharge Goal : Home Patient Offered Choice/Affiliations Explained : Yes Designation of Choice Signed : Yes List/Info Provided Pt/Fam/Support Person : Home health Were Referrals Sent to Post Acute Providers : Yes [facility] Quality Web Info Shared w Pt/Fam : Yes Discharge Plan Comment : Pt agreeable to HH services, but declines placement. Did you Attend Multidisciplinary Rounds? : Yes Ramón Hurst, REPRINT SORTER NON-EXEMPT - 04/16/2021 15:47 EDT Narrative Progress [...] for rehab. HH referral was sent via [employer]. [facility] CM notified hospitalist of pt's decision for HH services. Plan is to return home with HH services. Pt's daughter will provide transportation. CM will continue to follow. Ramón Hurst REPRINT SORTER NON-EXEMPT - 04/16/2021 15:47 EDT documented in this encounter Plan of Treatment Not on file documented as of this encounter Visit Diagnoses Not on filedocumented in this encounter
--- OUTSIDE RECORDS SUMMARY | 2025-04-13 14:54 | XMS_ITS | Encounter Summary ---
Author Organization [employer] ([place], [place], [place], [place]) Address [address] [place] [address] Care Team Providers Care Air Conditioning Installer Supervisor Name Role Phone Unavailable Primary Care Provider Unavailabl e Encounter Details Date Type Department Care Team (Late st Contact Info) Description 04/19/2021 Transcribed Document [facility] [place] Family Medicine [address] [place] [address] ProviderPantera MD [address] [place] [address] Social History Tobacco Use Types [...] Health Plan: HUMANA CHOICE PPO Policy Number: [id number] Authorization Number: Insurance Primary Name : HU[employer]NA CHOICE PPO Policy Number: [id number] Authorization Status-Primary : Notification only Reference Number-Primary : Pend ref #[id number] Authorized Service Begin Date-Primary : 04/14/2021 EDT [...]
--- OUTSIDE RECORDS SUMMARY | 2025-04-13 14:54 | XMS_ITS | Encounter Summary ---
Author Organization [employer] ([place], [place], [place], [place]) Address [address] [place] [address] Care Team Providers Care Case Managers Name Role Phone Unavailable Primary Care Provider Unavailabl e Encounter Details Date Type Department Care Team (Late st Contact Info) Description 04/18/2021 Transcribed Document [facility] [place] Family Medicine Counts include 234 beds at the [facility] [place] [address] ProviderPantera MD [address] [place] [address] Social History Tobacco Use Types [...] Health Plan: HUMANA CHOICE PPO Policy Number: [id number] Authorization Number: Insurance Primary Name : HU[employer]NA CHOICE PPO Policy Number: [id number] Authorization Status-Primary : Denial - admission Reference Number-Primary : Pend ref #[id number] Authorized Service Begin Date-Primary : 04/14/2021 EDT [...]
--- OUTSIDE RECORDS SUMMARY | 2025-04-13 14:54 | XMS_ITS | Encounter Summary ---
Author Organization [employer] ([place], [place], [place], [place]) Address [address] [place] [address] Care Team Providers Care Radiologic Technologist Chief Name Role Phone Unavailable Primary Care Provider Unavailabl e Encounter Details Date Type Department Care Team (Late st Contact Info) Description 04/18/2021 Transcribed Document [facility] [place] [facility] [place] [address] ProviderPantera MD [address] [place] [address] Social History Tobacco Use Types [...] ERICK STALEY PTA - 04/18/2021 14:43 EDT Human Resources Talent Manager Goals Mobility/Bed Mobility LTG PT Grid Goal [...] ERICK STALEY PTA - 04/18/2021 14:43 EDT documented in this encounter Plan of Treatment Not on file documented as of this encounter Visit Diagnoses Not on filedocumented in this encounter
--- OUTSIDE RECORDS SUMMARY | 2025-04-13 14:54 | XMS_ITS | Encounter Summary ---
Author Organization [employer] ([place], [place], [place], [place]) Address [address] [place] [address] Care Team Providers Care Flow Worker Name Role Phone Unavailable Primary Care Provider Unavailabl e Encounter Details Date Type Department Care Team (Late st Contact Info) Description 04/16/2021 Transcribed Document [facility] [place] [facility] [place] [address] ProviderPantera MD [address] [place] [address] Social History Tobacco Use Types [...] OCCUPATIONAL YAIMA NON-EXEMPT - 04/17/2021 12:20 EDT Mcc Goals, OT Grooming LTG Grid Goal #1 [...] or set up Equipment : Long Handled Ticketer, Sock aid Date to Meet : 04/30/2021 [...]
--- OUTSIDE RECORDS SUMMARY | 2025-04-13 14:54 | XMS_ITS | Encounter Summary ---
Author Organization [employer] ([place], [place], [place], [place]) Address [address] [place] [address] Care Team Providers Care Rubber Extrusion Machine Operator Name Role Phone Unavailable Primary Care Provider Unavailabl e Encounter Details Date Type Department Care Team (Late st Contact Info) Description 04/17/2021 Transcribed Document [facility] [place] Family [place] [address] [place] [address] ProviderPantera MD [address] [place] [address] Social History Tobacco Use [...] Health Plan: HU[employer]NA CHOICE PPO Policy Number: [id number] Authorization Number: Insurance Primary Name : [employer] CHOICE PPO Policy Number: [id number] Authorization Status-Primary : Denial - admission Reference Number-Primary : Pend ref #[id number] Authorized Service Begin Date-Primary : 04/14/2021 EDT Authorization Comments-Primary : Per VM From Himanshu R denied IP Historical Authorization Comments-Primary : Comment 1: IP appr per Karin CARBALLO, em the karin pa review to ER (NICOLÁS LUIS RN 04/16/2021 12:58) Comment 2: Obs appr per IPAS. Per attending PA pt meets for IP status. Ref to Karin CARBALLO (NICOLÁS LUIS RN 04/16/2021 12:15) Comment [...]
--- OUTSIDE RECORDS SUMMARY | 2025-04-13 14:54 | XMS_ITS | Encounter Summary ---
Author Organization [employer] ([place], [place], [place], [place]) Address [address] [place] [address] Care Team Providers Care Acquisition Specialist Name Role Phone Unavailable Primary Care Provider Unavailabl e Encounter Details Date Type Department Care Team (Late st Contact Info) Description 04/16/2021 Transcribed Document [facility] [place] [address] [place] [address] ProviderPantera MD [address] [place] [address] Social History Tobacco Use Types [...] Health Plan: [employer] PPO Policy Number: [id number] Authorization Number: Insurance Primary Name : [employer] PPO Policy Number: [id number] Authorization Status-Primary : Awaiting callback Reference Number-Primary : Pend ref #[id number] Authorized Service Begin Date-Primary : 04/14/2021 EDT [...] 04/16/2021 12:15 EDT Electronically signed by Major [facility] Conversion Ward Service Supervisor Cerner at 01/02/2023 6:18 PM CDT documented in this encounter Plan of Treatment Not on file documented as of this encounter Visit Diagnoses Not on filedocumented in this encounter
--- OUTSIDE RECORDS SUMMARY | 2025-04-13 14:54 | XMS_ITS | Encounter Summary ---
Author Organization [employer] ([place], [place], [place], [place]) Address [address] [place] [address] Care Team Providers Care Dba Developer Name Role Phone Unavailable Primary Care Provider Unavailabl e Encounter Details Date Type Department Care Team (Late st Contact Info) Description 04/17/2021 Transcribed Document [facility] [place] [address] [place] [address] ProviderPantera MD [address] [place] [address] Social History Tobacco Use Types [...] On: 04/17/2021 16:50 EDT by Ramón Hurst, JAVA ARCHITECT NON-EXEMPT Care Management Progress Note Discharge Arrangements : Patient Post-Acute Information Patient Name: [facility]: [id number] Gender: Female : [birth year] Age: 75 Years No Post-Acute Placement(s) Listed No Post-Acute Service(s) Listed No [place] Referral(s) Listed Discharge Options Discussed with Patient : Acute rehabilitation, Discharge transportation, DME, Home Health, [facility], Short term rehabilitation Barriers to Discharge Identified : Clinical Condition of Patient Barriers to Discharge Unresolved : Clinical Condition of Patient Patient Discharge Goal : Home Patient Offered Choice/Affiliations Explained : Yes Designation of Choice Signed : Yes List/Info Provided Pt/Fam/Support Person : Durable medical equipment, Home health Were Referrals Sent to Post Acute Providers : Yes [facility] Quality Web Info Shared w Pt/Fam : Yes Is the Patient Meeting Medical Necessity : Yes Physician Agreeable to Move Forward with D/C Plan? : Yes Discharge Plan Comment : Home with home health & walker Did you Attend Multidisciplinary Rounds? : Yes Ramón Hurst JAVA ARCHITECT NON-EXEMPT - 04/17/2021 16:50 EDT Narrative Progress Note Narrative Progress Note : Pt was seen at bedside. She still plans to return home with home health services. CM did get a call from [facility] & they have accepted pt. They will start services on 04/19/2021 as D/C is anticipated for tomorrow. [facility] will need final order in [facility] once D/C is confirmed. PT has recommended a walker & pt wanted this through [facility]. A referral to [facility] was sent via [employer]. CM confirmed they got referral for walker [...] for rehab. HH referral was sent via [employer]. Preferred provider is [facility] Provider form was completed. CM notified hospitalist of pt's decision for HH services. Plan is to return home with services. Pt's daughter will provide transportation. CM will continue to follow. Ramón Hurst JAVA ARCHITECT NON-EXEMPT - 04/16/21 15:54:11 Ramón Hurst SOCIAL WORKER NON-EXEMPT - 04/17/2021 16:50 EDT documented in this encounter Plan of Treatment Not on file documented as of this encounter Visit Diagnoses Not on filedocumented in this encounter
--- OUTSIDE RECORDS SUMMARY | 2025-04-13 14:54 | XMS_ITS | Encounter Summary ---
Author Organization [employer] ([place], [place], [place], [place]) Address [address] [place] [address] Care Team Providers Care Rejoiner Name Role Phone Unavailable Primary Care Provider Unavailabl e Encounter Details Date Type Department Care Team (Late st Contact Info) Description 04/18/2021 Transcribed Document [facility] [place] Family Medicine [address] [place] [address] ProviderPantera MD [address] [place] [address] Social History Tobacco Use Types [...] 04/18/2021 11:18 AM CDT Salvador Zamorano M.D. [facility] [place] [address] [address] [place] [phone] Re: SINDY NGUYEN Date of Visit: 04/14/2021 [...] is strictly prohibited. Sincerely, EDWARDO SCHULTZ [address] [facility] [address] [place] [address] The following document(s) were included in the letter: April 18, 2021 10:47:49 EDT - (04/18/2021) Discharge Note documented in this encounter Plan of Treatment Not on file documented as of this encounter Visit Diagnoses Not on filedocumented in this encounter
--- OUTSIDE RECORDS SUMMARY | 2025-04-13 14:54 | XMS_ITS | Encounter Summary ---
Author Organization [employer] ([place], [place], [place], [place]) Address [address] [place] [address] Care Team Providers Care Branch Store Manager Name Role Phone Unavailable Primary Care Provider Unavailabl e Encounter Details Date Type Department Care Team (Late st Contact Info) Description 04/16/2021 Transcribed Document [facility] [place] [address] [place] [address] ProviderPantera MD [address] [place] [address] Social History Tobacco Use Types [...] On: 04/16/2021 9:22 EDT by Ramón Hurst MEDICINE WORKER NON-EXEMPT Initial Assessment I Previously Documented [...] Is Guardianship Needed : No Ramón Hurst MEDICINE WORKER NON-EXEMPT - 04/16/2021 9:22 EDT Initial Assessment [...] Acute rehabilitation, Discharge transportation, DME, Home Health, jail, Short term rehabilitation Patient Discharge Goal : [...] Her PCP is Dr. Salvador Zamorano in [place], [place]. She also sees a pain specialist. Pt defers HH services, SNF or acute rehab. She has home O2 through [facility] in [place] & that is her preferred DME provider. [...]
--- OUTSIDE RECORDS SUMMARY | 2025-04-13 14:54 | XMS_ITS | Encounter Summary ---
Author Organization [facility] ([place], [place], [place], [place]) Address [address] [place] [address] Care Team Providers Care Editorial Director Name Role Phone Unavailable Primary Care Provider Unavailabl e Encounter Details Date Type Department Care Team (Late st Contact Info) Description 04/17/2021 Transcribed Document [facility] [place] Family Medicine [address] [place] [address] ProviderPantera MD [address] [place] [address] Social History Tobacco Use Types [...] Historical ProviderMD - 04/17/2021 2:00 AM CDT Audio Visual Project Manager Details Entered On: 04/17/2021 3:10 EDT Performed [...]
--- NOTE | 2025-04-13 15:27 | A.OFFVIS_ITS ---
[facility] Disclaimer: The information contained in this section may have been updated after the patient was seen, as this information can be updated by other users. Medical History CAD (coronary artery disease) Encounter for pre-operative cardiovascular clearance Asthma COPD mixed type Pulmonary emphysema Encounter for screening for malignant neoplasm of lung Smoking greater than 30 pack years Oxygen dependent Nephrolithiasis History of left heart catheterization Smoker Hypothyroid Tobacco abuse COPD (chronic obstructive pulmonary disease) Nonspecific ST-T changes Tachycardia Diabetes HLD (hyperlipidemia) SOB (shortness of breath) Angina, class IV Surgical History History of surgery pain pump placement History of surgical removal of skin lesion History of spinal surgery History of tonsillectomy History of colon surgery History of section History of bladder surgery Family History Other Family history of cancer Family history of diabetes mellitus Family history of heart disease Social History Smoking Status: Current every day smoker tobacco type: cigarettes packs per day: 1 second hand exposure: Yes alcohol intake: never counseling provided: provider counseling substance use type: denies use current occupational status: retired Travel in the last 8 weeks?: None household members: children housing: house current occupational exposures/hazards: No caffeine: No Have you lived/traveled outside US in past 30 days?: No Contact w/someone who lives/traveled outside US past 30 days?: No Exposure to someone with infectious disease in past 14 days?: No Do you have a fever (greater than 100.4 F or 38 C)?: No Have you tested positive for COVID-19?: No Exposed to someone with COVID-19 in past 14 days?: No Do you have a sore throat?: No Do you have a cough?: No Do you have any weakness?: No Do you have any diarrhea?: No Are you experiencing any unusual bleeding?: No Do you have any muscle aches/pain?: No Do you have any abdominal pain?: No Are you experiencing loss of taste or smell?: No PM Subjective & Objective Subjective Subjective:: Patient is a pleasant 79-year-old female who presents today for suture and staple removal of her postop pump explant. Today she rates her pain a 4 out of 10. She denies any new trauma or injury. Patient is still recovering from her last fall where she did fracture her left radius. Patient states overall she has done well but does have slight a bit of soreness in and around the incision site. Patient is managed with Tylenol 3 from our office. She denies any side effects. Her Eric has been reviewed and is appropriate. Review of Systems: General: No recent weight changes, no fever, no sleep disturbances Respiratory: No cough, no shortness of air, no recurring pulmonary infections Cardiovascular/peripheral vascular: No chest pain, no palpitations, no edema, no shortness of breath Gastrointestinal: No new onset incontinence, normal bowel movements reported Genitourinary: No new onset incontinence Musculoskeletal: Chronic low back pain, left wrist pain Psychiatric: [Normal mood/affect] Neurological: [Denies weakness in extremities], [denies balance issues] Pain at rest (0-10 scale): 4 Objective Objective:: Physical Exam: General: Alert and oriented x3, no acute distress, pleasant and cooperative Lungs: Respirations even and unlabored, symmetrical chest expansion Eyes: PERRL Musculoskeletal: Flexion and extension of lumbar [spine] somewhat guarded secondary to pain, [antalgic gait noted] Neurological: Speech clear, no gross sensory deficit Skin: Incision site is clean, dry, well-approximated with sutures and dae intact Has patient had previous pain injection?: No Conservative treatment options previously tried: Home exercise plan Length of treatment: Longer than 12 weeks Meds Home Medications and Allergies Home Medications ?Medication ?Instructions ?Recorded ?Confirmed ?Type alprazolam 1 mg tablet 1 mg PO TIDP PRN Anxiety 08/0103/29/25 History omeprazole 40 mg capsule,delayed 40 mg PO BID Reflux/A edmundo reflux 08/24/18 03/29/25 History release levalbuterol tartrate 45 2 puff inhalation Q4H Breath ing 02/07/19 03/29/25 History mcg/actuation aerosol inhaler problems milnacipran 100 mg tablet 100 mg PO BID FIBROMYALGIA 0 02/07/19 03/29/25 History rosuvastatin 20 mg tablet 20 mg PO HS Cholesterol 01/1303/29/25 History levocetirizine 5 mg tablet 5 mg PO HS Allergy symptoms 10/11/20 03/29/25 History metformin 500 mg tablet,extended 500 mg PO DAILY Diabe daniel 12/18/20 03/29/25 History release 24 hr sitagliptin phosphate 100 mg tablet 100 mg PO DAILY Di abetes 12/18/20 03/29/25 History aspirin 81 mg tablet,delayed 81 mg PO DAILY HE[facility] 04/11/21 03/29/25 History release ergocalciferol (vitamin D2) 1,250 50,000 units PO WEEK LY Supplement 02/20/22 03/29/25 History mcg (50,000 unit) capsule metoprolol succinate 50 mg 50 mg PO DAILY High blood p ressure 03/31/22 03/29/25 History tablet,extended release 24 hr furosemide 40 mg tablet 40 mg PO DAILYP PRN Fluid 03/29/25 History potassium chloride 10 mEq 10 meq PO BID Supplement 08/0603/29/25 History tablet,extended release levalbuterol HCl 0.63 mg/3 mL 0.63 mg inhalation . PRN . 09/23/23 03/29/25 H istory solution for nebulization linaclotide 72 mcg capsule 72 mcg PO DAILY PRN IBS 07/0703/29/25 History (Linzess) duloxetine 30 mg capsule,delayed 30 mg PO BID 12/24/23 03/29/25 History release diclofenac sodium 1 % topical gel 2 g topical QID #100 grams 12/28/23 03/29/25 Rx albuterol sulfate 90 mcg/actuation 2 inh inhalation Q6 H PRN shortness 02/16/24 03/29/25 Rx aerosol inhaler (Ventolin HFA) of breath or wheezing 9 0 days #18 grams baclofen 10 mg tablet 10 mg PO HS #14 tabs 4 03/29/25 Rx tramadol 50 mg tablet 50 mg PO BID PRN pain #60 ta bs 09/30/24 03/29/25 Rx gabapentin 300 mg capsule 600 mg PO HS neuropathy 01/1203/29/25 History levothyroxine 100 mcg tablet 100 mcg PO DAILY 02/23/25 03/29/25 History acetaminophen 300 mg-codeine 30 mg 1 tab PO BID PRN pa in #60 tabs 04/13/25 Rx tablet New Prescriptions to Start Prescriptions: acetaminophen-codeine Cathie Benjamin Allergies Allergy/AdvReac Type Severity Reaction Status Date / Time aripiprazole (From [facility]) Allergy Unknown Unknown Verified 03/29/25 13:03 allergy reaction ciprofloxacin (CIPROFLOXACIN) Allergy Unknown Unknown Verified 03/29/25 13:03 allergy reaction phenazopyridine Allergy Unknown Unknown Verified 03/29/25 13:03 (PHENAZOPYRIDINE) allergy reaction Assessment and Plan *Assessment and plan (1) Low back pain: Status: Acute Category: Medical Code(s): M54.50 - Low back pain, unspecified Plan Patient was counseled that she is on her postop restrictions the full 6 weeks including no submerging in water until her incisions are fully healed, minimal bending, twisting and lifting and to continue to use her abdominal binder to prevent seroma formation. Patient acknowledges understanding agrees with plan of care. We were able to remove all her sutures and dae. We will plan on having her back in 1 month to complete her postop restrictions.I will refill the patient's Tylenol 3. I did discuss with the patient that this prescription may be a little bit early but it will be waiting at her pharmacy when it is scheduled due. Patient agrees with this plan of care. We will see the patient back in the clinic at the next intrathecal refill. Patient has been instructed to contact the clinic with any concerns before the next appointment. Dr. Hinojosa has reviewed this note and agrees with this plan of care. This note was dictated using voice recognition software and make contain errors or omissions. -- It Is medically necessary for this patient to continue to have their intrathecal pump refilled at regular intervals. This patient had an intrathecal pain pump implanted after meeting criteria of chronic intractable pain for greater than 3 months and failing conservative treatments. Patient has committed and been compliant to the treatment plan and all planned follow up care. Since implantation of the intrathecal pain pump, the patient has had decreased pain and been more functional. Oral medications have been reduced including intake of oral opioids. Patient continues to do well with intrathecal therapy with decrease in pain symptoms and increase in functional status. Stopping intrathecal medications can lead to life threatening withdrawal, seizures, cardiac arrest, severe pain, and possible . Pumps that are not refilled at regular intervals can be damages and cause and need for replacement. We continually titrate dose and concentration to optimize pain relief and function. We are limited in concentration for certain drugs to safely deliver medications through the pump and stay within the recommendations from the Polyanalgesic Consensus Committee Guidelines. Depending on dose and concentration these pumps may need to be refilled sooner than 3 months as we titrate. A UDS is needed to verify patient's compliance with our office pain contract. This is ordered based off specific treatments related to chronic pain with the potential to abuse certain medications.
[2025-04-13 15:44] VITALS: BP 100/68; PULSE 107; RESP 14; O2SAT 94; BMI 30.4
== END 2025-04-13 23:59 | disposition home or self-care (01) ==
PROVIDERS: PCP Nurse Practitioner Family; Visit Provider Nurse Practitioner Family
DX: M54.50 Low back pain, unspecified (principal); Z79.4 Long term (current) use of insulin
CPT/HCPCS: 99213; G0463

== ENCOUNTER 2025-07-07 13:25 | Day surgery (SDC) | payer MEDICARE, MEDICAID, SELFPAY ==
[2025-07-07 13:42] VITALS: BP 105/66; PULSE 65; RESP 16; O2SAT 96; BMI 32.9
[2025-07-07] MEDS: LIDOCAINE 1% 5ML PF VIAL 10 ML (13:53)
--- NOTE | 2025-07-07 13:55 | EXP.HP ---
History of Present Illness *Admission Date: 07/07/25 *Reason for visit:: Bilateral SI joint injections *History of present illness: Patient is a pleasant 79-year-old white female who we are seeing for bilateral SI joint injections. Will do this today. [facility] Disclaimer: The information contained in this section may have been updated after the patient was seen, as this information can be updated by other users. Medical History CAD (coronary artery disease) Encounter for pre-operative cardiovascular clearance Asthma COPD mixed type Pulmonary emphysema Encounter for screening for malignant neoplasm of lung Smoking greater than 30 pack years Oxygen dependent Nephrolithiasis History of left heart catheterization Smoker Hypothyroid Tobacco abuse COPD (chronic obstructive pulmonary disease) Nonspecific ST-T changes Tachycardia Diabetes HLD (hyperlipidemia) SOB (shortness of breath) Angina, class IV Surgical History History of surgery pain pump placement History of surgical removal of skin lesion History of spinal surgery History of tonsillectomy History of colon surgery History of section History of bladder surgery Family History Other Family history of cancer Family history of diabetes mellitus Family history of heart disease Social History Smoking Status: Current every day smoker tobacco type: cigarettes packs per day: 1 second hand exposure: Yes alcohol intake: never counseling provided: provider counseling substance use type: denies use current occupational status: other Travel in the last 8 weeks?: None household members: children housing: house current occupational exposures/hazards: No caffeine: No Have you lived/traveled outside US in past 30 days?: No Contact w/someone who lives/traveled outside US past 30 days?: No Exposure to someone with infectious disease in past 14 days?: No Do you have a fever (greater than 100.4 F or 38 C)?: No Have you tested positive for COVID-19?: No Exposed to someone with COVID-19 in past 14 days?: No Do you have a sore throat?: No Do you have a cough?: No Do you have any weakness?: No Do you have any diarrhea?: No Are you experiencing any unusual bleeding?: No Do you have any muscle aches/pain?: No Do you have any abdominal pain?: No Are you experiencing loss of taste or smell?: No Other Medical History Have you received the Flu Vaccine for this season: No Have you received the Pneumonia Vaccine: No Review of Systems Review of Systems Review of systems:: pertinent systems reviewed and negative unless documented below Meds Home Medications and Allergies Home Medications ?Medication ?Instructions ?Recorded ?Confirmed ?Type alprazolam 1 mg tablet 1 mg PO TIDP PRN Anxiety 08/24/18 07/07/25 History omeprazole 40 mg capsule,delayed 40 mg PO BID Reflux/Acid reflux 08/24/18 07/07/25 History release levalbuterol tartrate 45 2 puff inhalation Q4H Breathing 02/07/19 07/07/25 History mcg/actuation aerosol inhaler problems milnacipran 100 mg tablet 100 mg PO BID FIBROMYALGIA 02/07/19 07/07/25 History rosuvastatin 20 mg tablet 20 mg PO HS Cholesterol 02/08/19 07/07/25 History levocetirizine 5 mg tablet 5 mg PO HS Allergy symptoms 10/11/20 07/07/25 History metformin 500 mg tablet,extended 500 mg PO DAILY Diabetes 12/18/20 07/07/25 History release 24 hr sitagliptin phosphate 100 mg tablet 100 mg PO DAILY Diabetes 12/18/20 07/07/25 History aspirin 81 mg tablet,delayed 81 mg PO DAILY [facility] 04/11/21 07/07/25 History release ergocalciferol (vitamin D2) 1,250 50,000 units PO WEEKLY Supplement 02/20/22 07/07/25 History mcg (50,000 unit) capsule metoprolol succinate 50 mg 50 mg PO DAILY High blood pressure 03/31/22 07/07/25 History tablet,extended release 24 hr furosemide 40 mg tablet 40 mg PO DAILYP PRN Fluid 10/30/22 07/07/25 History potassium chloride 10 mEq 10 meq PO BID Supplement 01/22/23 07/07/25 History tablet,extended release levalbuterol HCl 0.63 mg/3 mL 0.63 mg inhalation . PRN . 09/23/23 07/07/25 History solution for nebulization linaclotide 72 mcg capsule 72 mcg PO DAILY PRN IBS 09/23/23 07/07/25 History (Linzess) duloxetine 30 mg capsule,delayed 30 mg PO BID 12/24/23 07/07/25 History release diclofenac sodium 1 % topical gel 2 g topical QID #100 grams 12/28/23 07/07/25 Rx albuterol sulfate 90 mcg/actuation 2 inh inhalation Q6H PRN shortness 02/16/24 07/07/25 Rx aerosol inhaler (Ventolin HFA) of breath or wheezing 90 days #18 grams baclofen 10 mg tablet 10 mg PO HS #14 tabs 02/17/24 07/07/25 Rx tramadol 50 mg tablet 50 mg PO BID PRN pain #60 tabs 09/30/24 07/07/25 Rx gabapentin 300 mg capsule 600 mg PO HS neuropathy 01/24/25 07/07/25 History levothyroxine 100 mcg tablet 100 mcg PO DAILY 02/23/25 07/07/25 History acetaminophen 300 mg-codeine 30 mg 1 tab PO BID PRN pain #60 tabs 06/01/25 07/07/25 Rx tablet prednisone 20 mg tablet 20 mg PO BID #10 tabs 06/01/25 07/07/25 Rx New Prescriptions to Start Prescriptions: Allergies Allergy/AdvReac Type Severity Reaction Status Date / Time aripiprazole ([facility]) Allergy Unknown Unknown Verified 06/01/25 15:49 allergy reaction ciprofloxacin (CIPROFLOXACIN) Allergy Unknown Unknown Verified 06/01/25 15:49 allergy reaction phenazopyridine Allergy Unknown Unknown Verified 06/01/25 15:49 (PHENAZOPYRIDINE) allergy reaction Exam Data for Last 24 hours Vital signs and Labs for Last 24 Hours: Pulse Resp BP Pulse Ox O2 Del Method 65 16 105/66 L 96 Room Air 07/07/25 13:42 07/07/25 13:42 07/07/25 13:42 07/07/25 13:42 07/07/25 13:42 I & O for Last 24 hours: Intake & Output 07/05/25 07/06/25 07/07/25 07/08/25 11:59 11:59 11:59 11:59 Weight 198 lb *Routine HEENT Exam Head: Present normocephalic Eye: Present EOMI ENT: Present mucous membranes moist *Routine Respiratory Exam Respiratory: Present CTA bilaterally *Routine Cardiovascular Exam Cardiovascular: Present RRR, Normal S1 and Normal S2 *Routine Abdominal Exam Abdominal: Present soft *Routine Rectal Exam Rectal:: deferred *Routine Genitalia Exam Genitalia:: deferred Assessment and Plan *Assessment and plan (1) Bilateral sacroiliitis: Status: Acute Category: Medical Code(s): M46.1 - Sacroiliitis, not elsewhere classified Plan Bilateral SI joint injections under fluoroscopy
[2025-07-07 14:00] VITALS: BP 138/67; PULSE 110; RESP 20; O2SAT 90
[2025-07-07] MEDS: BUPIVACAINE 0.25% 10ML INJ 25 MG IJ (14:00)
[2025-07-07] MEDS: DEXAMETHASONE 10MG/ML 1ML VIAL 10 MG (14:00)
--- NOTE | 2025-07-07 14:00 | EXP.PAIN.PRO ---
Procedure Date: 07/07/25 Time: 14:01 Anesthesiologist:: Benja Hinojosa MD Complications:: None Pre-procedure Diagnosis:: Sacroiliitis Post-procedure Diagnosis:: Same Indications for Procedure:: This patient is a pleasant 79-year-old white female who had explant of her intrathecal pain pump for her significant pain side effects and pain. She is now having some increasing pain over both SI joints with radicular symptoms. She presents for bilateral SI joint injections under fluoroscopy today. Procedure Details:: B/L SI joint injection under fluoroscopy Informed consent was obtained and the risks and benefits of the procedure was explained to the patient. The patient was taken to the procedure room and placed prone on the procedure table. The patient was prepped using ChloraPrep. The skin and subcutaneous tissues overlying the SI joints were anesthetized using lidocaine. I placed a 22-gauge needle first in the left SI joint and second in the right SI joint. Needle placement was confirmed with dye. After this we injected 5 mL bupivacaine 0.25% and dexamethasone 10 mg into each SI joint. Patient tolerated the procedure well with no complication. Plan and Disposition:: Will follow-up with this patient in 1 month. Will evaluate efficacy of these injections.
[2025-07-07 14:01] VITALS: BP 138/67; PULSE 110; RESP 20; O2SAT 90
[2025-07-07] MEDS: IOPAMIDOL-200 (41%);10ML VIAL 2 ML IV (14:02)
[2025-07-07 14:03] VITALS: BP 102/61; PULSE 108; RESP 16; O2SAT 93
== END 2025-07-07 14:03 | disposition home or self-care (01) ==
PROVIDERS: PCP Nurse Practitioner Family; Visit Provider Anesthesiology
DX: M46.1 Sacroiliitis, not elsewhere classified (principal); J44.89 Other specified chronic obstructive pulmonary disease; E03.9 Hypothyroidism, unspecified; E11.9 Type 2 diabetes mellitus without complications; I25.118 Atherosclerotic heart disease of native coronary artery with other forms of angina pectoris; E78.5 Hyperlipidemia, unspecified; F17.210 Nicotine dependence, cigarettes, uncomplicated; Z98.890 Other specified postprocedural states; Z88.1 Allergy status to other antibiotic agents; Z88.8 Allergy status to other drugs, medicaments and biological substances; Z88.6 Allergy status to analgesic agent; Z79.82 Long term (current) use of aspirin; Z79.84 Long term (current) use of oral hypoglycemic drugs; Z79.890 Hormone replacement therapy; Z79.899 Other long term (current) drug therapy
CPT/HCPCS: 64450; 99221; J0665; J1100; J2003; Q9966

== ENCOUNTER 2025-07-24 14:59 | Outpatient (CLI) | payer MEDICARE, MEDICAID, SELFPAY ==
--- OUTSIDE RECORDS SUMMARY | 2025-07-24 15:09 | XMS_ITS | Clinical Summary ---
Author Organization [facility] Address [address] [place] [address] Phone Care Team Providers Care Customer Service Cashier Name Role Phone Greg Brar MD Unavailable [phone] James Nielsen MD Unavailable [phone] Sharon Rao MD Unavailable [phone] Salvador Zamorano MD Primary Care Provider [phone] Allergies Active Allergy Reactions Criticality Noted Date [...] 30 Tab 2 08/20/20 15 Active methen-m.blue-s.ph qw-jvuaz-lnn 118-10-40.8-36 mg Oral Capsule Take 1 Tab [...] Type 2 diabetes mellitus without complication, unspecified fdc insulin use status Take 1 Tab by [...] complication, without long-term current use of insulin ([facility]) Take 1 Tab by mouth [...] MENISCECTOMY CHONDROPLASTY; Surgeon: Jose Pope MD; Location: [facility] MAIN OR; Service: Orthopedics CARDIAC CATHETERIZATION Medical [...] Date Smoking Tobacco: Every Day Cigarettes 1 65.3 Started: 04/17/1960 Smokeless Tobacco: Never Tobacco Cessation:Ready [...] on file Sexual Orientation Not on file Last Filed Vital Signs Vital Sign Reading [...] Exam Medicare 1949 Diabetic Eye Exam 1964 Kidney Health: uACR 1964 DTaP/TDaP/Td (1 - Tdap) 1965 Zoster [...] 75+ series) 2021 COVID-19 Vaccine ( season) 2025 Influenza Vaccine (#1) 2025 7, 06/24/2016, 07/26/2015 [...] 6.3( 7 2:39 PM EDT) No Givens, Tamikoverónica Pope, RMA Medical Devices Implanted Type Area Rn Family Device Identifier Shelf Expiration Date Model / [...] # SEP OFFICE 07/10/2017 2:39 PM EDT Ely Carpenter MD POINT OF CARE TEST ORDERABLES Final Result SEP OFFICE * ACUTE HEPATITIS PANEL (09/26/2016 11:46 AM EST) Hep Bs Ag Negative Negative [facility] Hep B Core IgM Negative Negative [facility] Hep A IgM Negative Negative [facility] Hep C Ab Negative Negative [facility] Blood specimen (specimen) UPPER LIMB STRUCTURE / Unknown 09/26/2016 11:46 AM EST 09/26/2016 8:13 PM EST Ely Carpenter MD CHEMISTRY ORDERABLES Edited Re sult - Final Performing Organization Address [facility] Phone Number [facility] [address] [place] [address] * (ABNORMAL) LIPID SCREEN (09/26/2016 11:46 AM EST) Cholesterol 174 <=200 mg/dL [facility] Comment: < 200 Desirable 200 - 239 Borderline High >= 240 High Triglyceride 165(H) <=150 mg/dL [facility] Comment: < 150 Normal 150 - 199 Borderline High 200 - 499 High >= 500 Very High HDL 65 >=40 mg/dL [facility] Comment: > 60 Optimal 40 - 60 Acceptable < 40 Low LDL Calculated 76 <=100 mg/dL [facility] Comment: < 100 Optimal 100 - 129 Near or above optimal 130 - 159 Borderline High 160 - 189 High >= 190 Very High Blood specimen (specimen) UPPER LIMB STRUCTURE / Unknown 09/26/2016 11:46 AM EST 09/26/2016 8:13 PM EST Ely Carpenter MD CHEMISTRY ORDERABLES Edited Re sult - Final Performing Organization Address [facility] Phone Number [facility] [address] [place] [address] * (ABNORMAL) COMPREHENSIVE METABOLIC PANEL (09/26/2016 11:46 AM EST) Sodium 142 136 - 145 mmol/L [facility] Potassium 5.2(H) 3.5 - 5.0 mmol/L [facility] Chloride 101 98 - 107 mmol/L [facility] Total CO2 30(H) 22 - 29 mmol/L [facility] Anion Gap 11 7 - 16 mmol/L [facility] Calcium 9.7 8.8 - 10.2 mg/dL [facility] Glucose Lvl 115(H) 82 - 100 mg/dL [facility] BUN 16 8 - 23 mg/dL [facility] Creatinine 0.81 0.51 - 1.30 mg/dL [facility] Albumin 4.2 3.2 - 4.6 gm/dL [facility] Total Protein 7.1 6.4 - 8.3 gm/dL [facility] Bili Total 0.2 0.1 - 1.3 mg/dL [facility] AST 15 <=40 IU/L [facility] ALT 14 <=41 IU/L [facility] Alk Phos 90 35 - 104 IU/L [facility] GFR Afr Am >60 [facility] GFR Non Afr Am >60 [facility] Blood specimen (specimen) UPPER LIMB STRUCTURE / Unknown 09/26/2016 11:46 AM EST 09/26/2016 8:13 PM EST us Ely Carpenter MD CHEMISTRY ORDERABLES Edited Re sult - Final [facility] [address] [place] [address] * CT CHEST W CONTRAST (01/01/2015 2:47 [...] CONTRAST Jan 01, 2015 02:47:16 PM HISTORY: 786.1-Qfhbj-HKO-9-CM Comparison 04/23/2014. Technical 75 cc Isovue-370 Previously [...] CONTRAST Jan 01, 2015 02:47:16 PM HISTORY: 786.0-Gsooz-HLW-9-CM Comparison 04/23/2014. Technical 75 cc Isovue-370 Previously [...] Most Recently Relevant to Health Maintenance Insurance [facility] [place] [address] [facility] [place] [address] [employer] MEDICARE PPO MR Advance Directives For more information, please contact: [phone] * Full Code (Latest Code Status on File) Date Activated Date Inactivated Comments 04/18/2015 8:32 AM 04/20/2015 6:29 PM * Full Code Date Activated Date Inactivated Comments 01/02/2015 10:12 PM 01/03/2015 9:25 PM * Full Code Date Activated Date Inactivated Comments 07/03/2014 2:33 AM 07/04/2014 6:32 PM * Full Code Date Activated Date Inactivated Comments 04/24/2014 2:19 AM 04/25/2014 8:45 PM Care Teams Customer Service Cashier Relationship Specialty Start Date End Date Sharon Rao MD [address] [place] [address] PCP - Hematology/Oncology Internal Medicine-Medical Oncology 07/16/15 Salvador Zamorano MD [address] [place] [address] [address] [place] [address] PCP - General Internal Medicine 04/21/18 Greg Brar MD Internal Medicine-Gastroentero logy 03/18/13 James Nielsen MD [address] [facility] [place], [place] [id number] Internal Medicine-Cardiovascul ar Disease 02/14/15
== END 2025-07-24 23:59 | disposition home or self-care (01) ==
PROVIDERS: PCP Nurse Practitioner Family; Visit Provider Nurse Practitioner Family
DX: Z51.81 Encounter for therapeutic drug level monitoring (principal); Z79.891 Long term (current) use of opiate analgesic
CPT/HCPCS: 36415

== ENCOUNTER 2025-09-12 16:55 | Outpatient (CLI) | payer MEDICARE, MEDICAID, SELFPAY ==
--- OUTSIDE RECORDS SUMMARY | 2025-04-13 09:45 | XMS_ITS ---
Author Organization [facility] Address [address] [place] [address] Care Team Providers Care Primer Inserting Machine Adjuster Name Role Phone Claire Ramirez Primary Care Provider Delvin Newton Unavailable Unavailable REASON FOR VISIT FU Encounters Encounter Location Date Provider Diagnosis [facility] [address] [place] [address] 04/13/2025 Claire Ramirez Plan Of Treatment No Information Progress Notes * Ayaan LEMAB: 7 (79 yo F)Acc No.[id number]:04/13/2025 Progress Notes Patient: Sindy Coronado Provider: SLAVA Grimaldo :1945 A ge:79 Y S ex:Female Date:04/13/2025 Address:[address] [id number] Subjective: * Chief Complaints: * F U Billing Information: * Procedure Codes: * Electronic signature of Altagracia Ramirez APRN on 09/12/2025 at 05:03 PM EST Sign off status: Pending * Provider: SLAVA Grimaldo Date: 0 04/13/2025 Generated for Printi ng/Faxing/eTransmitting on: 1 05:03 PM EST
--- OUTSIDE RECORDS SUMMARY | 2025-05-18 09:30 | XMS_ITS ---
Author Organization [facility] Address [address] [place] [address] Care Team Providers Care Map Editor Name Role Phone Claire Ramirez Primary Care Provider [phone] Unavailable Unavailable REASON FOR VISIT 4 Week F/U Encounters Encounter Location Date Provider Diagnosis [facility] [address] [place] [address] 05/18/2025 Claire Ramirez Plan Of Treatment No Information Progress Notes * Ayaan LEMAB: 7 (79 yo F)Acc No.[id number]:05/18/2025 Progress Notes Patient: Sindy Coronado Provider: SLAVA Grimaldo :1945 A ge:79 Y S ex:Female Date:05/18/2025 Address:[id number] Subjective: * Chief Complaints: * 4 Week F/U Billing Information: * Procedure Codes: * Electronic signature of Altagracia Ramirez APRN on 09/12/2025 at 05:02 PM EST Sign off status: Pending * Provider: SLAVA Grimaldo Date: 0 05/18/2025 Generated for Printi ng/Faxing/eTransmitting on: 1 05:02 PM EST
--- OUTSIDE RECORDS SUMMARY | 2025-07-24 10:00 | XMS_ITS ---
Author Organization [facility] Address [address] [facility] [address] [place] [address] Care Team Providers Care Head Chef Name Role Phone Claire Ramirez Primary Care Provider Delvin Newton Unavailable Unavailable Allergies Allergen (clinical drug ingredient) Drug/Non Drug Allergy documented on EMR Reaction Allergy Type Onset Date Status ARIPIPRAZOLE ANALOGU ES (uncoded) itching Allergy Active aripiprazole Abilify itching Drug Allergy Acti ve aripiprazole ARIPiprazole itching Drug Allergy A ctive Results Component Value Reference Range Flag Notes Urinalysis Reviewed date:07/24/2025 05:07:01 PM Interpretation: Performing Lab: Notes/Report: Color/Clarity cloudy/yellow Leuk small Nitrite positive Urobili 0.2 Protein 100mg pH 6.0 Blood trace-intace Sp. Gr. >=1.030 Ketone neg Bili neg Glucose neg CULTURE, URINE, ROUTINE (395 ) Reviewed date:07/28/2025 10:43:37 AM Interpretation: Performing Lab:[facility], [facility] [address], [place] David Calles Notes/Report: NON-FASTING CULTURE, URINE, ROUTINE SEE NOTE A CULTURE, URINE, ROUTINE Micro Number: [id number] Test Status: Final Specimen Source: Urine Specimen Quality: Adequate Result: Greater than 100,000 CFU/mL of Escherichia coli E.coli INT BERENICE AMOX/CLAVULANATE S 4 AMP/SULBACTAM I 16 CEFAZOLIN NR 2 2 CEFEPIME S <=0.12 CEFTAZIDIME S <=0.5 CEFTRIAXONE S <=0.25 CIPROFLOXACIN I 0.5 GENTAMICIN S <=1 IMIPENEM S <=0.25 LEVOFLOXACIN I 1 MEROPENEM S <=0.25 NITROFURANTOIN S <=16 PIP/TAZOBACTAM S <=4 TRIMETHOPRIM/SULFA R >=320 S = Susceptible I = Intermediate R = Resistant NS = Not susceptible SDD = Susceptible Dose Dependent * = Not Tested NR = Not Reported NN = See Therapy Comments THERAPY COMMENTS Note 1: For infections other than uncomplicated UTI caused by E. coli, K. pneumoniae or P. mirabilis: Cefazolin is resistant if BERENICE > or = 8 mcg/mL. (Distinguishing susceptible versus intermediate for isolates with BERENICE < or = 4 mcg/mL requires additional testing.) Note 2: For uncomplicated UTI caused by E. coli, K. pneumoniae or P. mirabilis: Cefazolin is susceptible if BERENICE <32 mcg/mL and predicts susceptible to the oral agents cefaclor, cefdinir, cefpodoxime, cefprozil, cefuroxime, cephalexin and loracarbef. Reason For Referral Reason Dr Dan for urinar y incontinence Diagnosis 1 Unspecified urinary incontinence (R32) Referral Organization [facility] Referring Provider First Name Claire Referring Provider Last Name Ashley Referring Provider [facility] Referred Organization [facility] Referred Address [address] [place] [id number], Referred Provider Specialty Gynecology ( Osteopaths only) General Notes Estefani Huang 2024 03:17:10 PM >sent to Dr. Dan Referral Priority Routine REASON FOR VISIT Possible UTI-urinary pressure, dysuria, pain in her vaginal area Medications Medication SIG (Take, Route, Frequency, Duration) Notes Start Date End Date Status DULoxetine HCl 30 MG Capsule Delayed Release Particles 1 cap(s) orally 2 times a day; Duration: 90 days Active Nitrofurantoin Monohyd Macro 100 MG Capsule 1 capsule with food Orally every 12 hrs; Duration: 5 days 07/21/2025 Active ALPRAZolam 1 mg Tablet TAKE ONE TABLET B Y MOUTH THREE TIMES DAILY NEEDED FOR ANXIETY MAY CAUSE DROWSINESS; Duration: 30 06/30/2025 Active Nicotine 21 MG/24HR Patch 24 Hour 1 patch to skin Transdermal Once a day; Duration: 30 04/05/2025 Active Metoprolol Succinate ER 50 MG Tablet Extended Release 24 Hour TAKE ONE TABLET BY MOUTH EVERY DAY; Duration: 30 days Active Montelukast Sodium 10 MG Tablet 1 tab(s) orally once a day; Duration: 90 days Active metFORMIN HCl ER 500 mg Tablet Extended Release 24 Hour 1 tab orally twice a day; Duration: 90 days Active Methocarbamol 500 MG Tablet 1 tablet Orally every 8 hours as needed for muscle pain; Duration: 7 days 03/08/2025 Active Levothyroxine Sodium 100 MCG Tablet 1 tab(s) orally once a day; Duration: 30 days Active Omeprazole 40 MG Capsule Delayed Release 1 cap(s) orally twice daily; Duration: 30 days Active Rosuvastatin Calcium 20 MG Tablet 1 tab(s) orally once a day; Duration: 90 days Active Levalbuterol HCl 45 MCG/INH AEROSOL 2 PUFF(S) INHALED EVERY 4 HOURS NEEDED FOR COPD; Duration: 30 DAYS *Please review and pick correct strength-formulati on from [employer] options. If intended option is not shown, discontinue and re-order from Quick Search* Active Levalbuterol HCl 0.63 MG/3ML Nebulization Solution 3 mL by nebulizer every 6 hours as needed for shortness of breath; Duration: 30 days Active Trelegy Ellipta 100 MCG-62.5 MCG-25 MCG/INH POWDER 1 PUFF(S) INHALED ONCE A DAY; Duration: 30 DAYS *Please review and pick correct strength-formulati on from [employer] options. If intended option is not shown, discontinue and re-order from Quick Search* 08/24/2023 Active Levocetirizine Dihydrochloride 5 MG Tablet 1 tab(s) orally once a day (in the evening); Duration: 90 days Active Vitamin D (Ergocalciferol) 1.25 MG (95845 UT) Capsule 1 cap(s) orally once a week; Duration: 30 day(s) Active Furosemide 40 MG Tablet 1 tab(s) orally 2 times a day; Duration: 30 days Active POTASSIUM CHLORIDE (BAB-RMEW-IBW 10) 10 MEQ TABLET, EXTENDED RELEASE TAKE ONE TABLET BY MOUTH THREE TIMES A WEEK; Duration: 84 Active Cefdinir 300 MG Capsule 300 mg Orally 2 times a day; Duration: 7 days 07/24/2025 Active PORTABLE OXYGEN (OXYLITE) DX: COPD 03/18/2023 Active linaCLOtide 72 MCG Capsule 1 cap(s) orally once a day Active MILNACIPRAN 100 MG TABLET 1 TAB(S) ORALLY 2 TIMES A DAY Active Aspirin 81 MG Tablet Delayed Release 1 tab(s) orally once a day; Duration: 30 day(s) Active Alendronate Sodium 70 MG Tablet 1 tab(s) orally once a week Active Januvia ( PHOSPHATE) 100 MG TABLET 1 TAB(S) ORALLY ONCE A DAY Active Acetaminophen-Codeine 300-30 MG Tablet 1 tablet as needed Orally twice a day Active Social History Tobacco Use: Social History Observation Description Date Details (start date - stop date) Current Smoker NA - NA Social History Social History Social Info Question Answer Notes Smoking: Are you a: current smoker How often do you smoke cigarettes? every day How many cigarettes a day do you smoke? 6-10 How soon after you wake up do you smoke your first cigarette? 31-60 min Are you interested in quitting? 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) Active confirmed Vital Signs Temperature 97.8 degrees Fahrenheit 07/24/20 25 Blood pressure systolic 108 mm Hg 07/24/20 25 Blood pressure diastolic 68 mm Hg 025 Heart Rate 100 /min 07/24/2025 Height 5 ft 5 in in 07/24/2025 Weight 196.8 lbs 07/24/2025 BMI 32.75 kg/m2 07/24/2025 Encounters Encounter Location Date Provider Diagnosis [facility] [address] [place] [address] 07/24/2025 Claire Ramirez Dysuria R30.0 ; Unspecified urinary incontinence R32 and Full incontinence of feces R15.9 Assessments Encounter Date Diagnosis (ICD Code) Assessment Notes Treatment Notes Treatment Clinical Notes Section Notes 07/24/2025 Dysuria (ICD-10 - R30.0) 07/24/2025 Unspecified urinary incontinence (ICD-10 - R32) Recommend first a complete pelvic exam to evaluate support of her bladder. May need additional evaluation pending that examination 07/24/2025 Full incontinence of feces (ICD-10 - R15.9) Plan Of Treatment Medication Medication Name Sig Start Date Stop Date Notes Cefdinir 300 MG Capsule 300 mg Orally 2 times a day; Duration: 7 days 07/24/2025 Referrals Referral Date Details 07/24/2025 07/24/2025, Dr Trino rojas for urinary incontinence, [address] [facility] [address] [facility], [place], [address], Next Appt Details Follow Up: prn, Reason: History and Physical Notes * Examination Category Sub-Category Detail Notes Category Not es General Examination Heart: Regular Rate and Rhyt hm, Lungs: clear to auscultatio n, Abdomen: soft, NT/ND, BS pres ent, no CVA tenderness, Oral cavity: Moist membranes General Pleasant and Coopera tive, NAD on RA, Consultation Request Notes Referral Date Referring Provider Referred Provider Not louisa 07/24/[address] Clarke fo r urinary incontinence Progress Notes * Andrés LEMAaDOB: 7 (79 yo F)Acc No.[id number]:07/24/2025 Progress Notes Patient: Sindy SWARTZ Provider: SLAVA Grimaldo :1945 A ge:79 Y S ex:Female Date:07/24/2025 Address:[address] [place] [address], [id number] Subjective: * Chief Complaints: * 1 . Possible UTI-urinary pressure, dysuria, pain in her vaginal area. * HPI: g en: 79-year-old female with chronic urinary and fecal incontinence presents today with complaints of dysuria. Sometimes when she attempts to urinate is only urinating a small amount. No improvement after 3 days of nitrofurantoin. No gross hematuria. No fevers or flank pain. She has a history of bladder surgery x 5 per her report. Reports that her incontinence got much worse after her pain pump was placed, has recently been removed. * ROS: C ONSTITUTIONAL: no F ever. * Medical History: * Social History: S moking A re [...] needed Orally twice a day , Taking MILNACIPRAN 100 MG TABLET 1 TAB(S) ORALLY 2 TIMES A DAY , Taking linaCLOtide 72 MCG Capsule 1 cap(s) orally once a day , Taking Januvia ( PHOSPHATE) 100 MG TABLET 1 TAB(S) ORALLY ONCE A DAY , Taking Alendronate Sodium 70 MG Tablet 1 tab(s) orally once a week , Taking Aspirin 81 MG Tablet Delayed Release 1 tab(s) orally once a day , Taking PORTABLE OXYGEN (OXYLITE) DX: COPD , Taking Vitamin D (Ergocalciferol) 1.25 MG (37896 UT) Capsule 1 cap(s) orally once a week , Taking POTASSIUM CHLORIDE (APH-DJOT-USJ 10) 10 MEQ TABLET, EXTENDED RELEASE TAKE ONE TABLET BY MOUTH THREE TIMES A WEEK , Taking Furosemide 40 MG Tablet 1 tab(s) orally 2 times a day , Taking Trelegy Ellipta 100 MCG-62.5 MCG-25 MCG/INH POWDER 1 PUFF(S) INHALED ONCE A DAY , Notes to Pharmacist: *Please review and pick correct strength-formulation from [employer] options. If intended option is not shown, discontinue and re-order from Quick Search*, Taking Levalbuterol HCl 0.63 MG/3ML Nebulization Solution 3 mL by nebulizer every 6 hours as needed for shortness of breath , Taking Levalbuterol HCl 45 MCG/INH AEROSOL 2 PUFF(S) INHALED EVERY 4 HOURS NEEDED FOR COPD , Notes to Pharmacist: *Please review and pick correct strength-formulation from [employer] options. If intended option is not shown, discontinue and re-order from Quick Search*, Taking Rosuvastatin Calcium 20 MG Tablet 1 tab(s) orally once a day , Taking Levocetirizine Dihydrochloride 5 MG Tablet 1 tab(s) orally once a day (in the evening) , Taking Omeprazole 40 MG Capsule Delayed Release 1 cap(s) orally twice daily , Taking Levothyroxine Sodium 100 MCG Tablet 1 tab(s) orally once a day , Taking Methocarbamol 500 MG Tablet 1 tablet Orally every 8 hours as needed for muscle pain , Taking metFORMIN HCl ER 500 mg Tablet Extended Release 24 Hour 1 tab orally twice a day , Taking Montelukast Sodium 10 MG Tablet 1 tab(s) orally once a day , Taking DULoxetine HCl 30 MG Capsule Delayed Release Particles 1 cap(s) orally 2 times a day , Taking Metoprolol Succinate ER 50 MG Tablet Extended Release 24 Hour TAKE ONE TABLET BY MOUTH EVERY DAY , Taking Nicotine 21 MG/24HR Patch 24 Hour 1 patch to skin Transdermal Once a day , Taking ALPRAZolam 1 mg Tablet TAKE ONE TABLET BY MOUTH THREE TIMES DAILY NEEDED FOR ANXIETY MAY CAUSE DROWSINESS , Taking Nitrofurantoin Monohyd Macro 100 MG Capsule 1 capsule with food Orally every 12 hrs , Medication List reviewed and reconciled with the patient * Allergies: A RIPiprazole: itching, Abilify: itching, ARIPIPRAZOLE ANALOGUES: itching. Objective: * Vitals: N urse: jl, Pain: 8, Temp: 97.8, RR: 20, HR: 100, BP: 108/68, Ht: 5 ft 5 in, Wt: 196.8, BMI:32.75. * Examination: G eneral Examination: General P leasant and Cooperative, NAD on RA,. Oral cavity: M oist membranes. Heart: R egular Rate and Rhythm,. Lungs: c lear to auscultation,. Abdomen: s oft, NT/ND, BS present, no CVA tenderness,. Assessment: * Assessment: 1. D ysuria - R30.0 (Primary) 2 . U nspecified urinary incontinence - R32? 3. F ull incontinence of feces - R15.9 Plan: * Treatment: Value Reference Range C ULTURE SEE NOTE A - * This lab was reviewed by Dani Zamorano on 07/28/2025 at 10:43 AM EST ?LAB: Urinalysis (Collection Date & Time - 07/24/2025)* Value Reference Range C olor/Clarity cloudy/yellow * L euk small * N itrite positive * U robili 0.2 * P rotein 100mg * p H 6.0 * B lood trace-intace * S p. Gr. >=1.030 * K etone neg * B steve neg * G lucose neg * Soo Zamorano 07/24/2025 03: 52:24 PM EST > 2.?Unspecified urinary incontinence? Clinical Notes: Recommend first a complete pelvic exam to evaluate support of her bladder. May needadditional evaluation pending that examination? Referral To: ?Reason:Dr Dan for urinary incontinence * Procedure Codes: 8 1002 URINALYSIS, Modifiers: QW * Follow Up: p rn * * Sign off status: Completed true * Provider: SLAVA Grimaldo Date: 09/23/2024 Generated for Honey aquino/Francisco/Gary on: 05:02 PM EST
--- OUTSIDE RECORDS SUMMARY | 2025-08-03 09:00 | XMS_ITS ---
Author Organization [facility] Address [address] [place] [address] Care Team Providers Care Plasterer Stucco Name Role Phone Claire Ramirez Primary Care Provider Delvin Newton Unavailable Unavailable REASON FOR VISIT 2 Month F/U Encounters Encounter Location Date Provider Diagnosis [facility] [address] [place] [address] 08/03/2025 Claire Ramirez Plan Of Treatment No Information Progress Notes * Ayaan LEMAB: 7 (79 yo F)Acc No.[id number]:08/03/2025 Progress Notes Patient: Sindy Coronado Provider: SLAVA Grimaldo :1945 A ge:79 Y S ex:Female Date:08/03/2025 Address:[id number] Subjective: * Chief Complaints: * 2 Month F/U Billing Information: * Procedure Codes: * Electronic signature of Altagracia Ramirez APRN on 09/12/2025 at 05:03 PM EST Sign off status: Pending * Provider: SLAVA Grimaldo Date: 10/03/2024 Generated for Printi ng/Faxing/eTransmitting on: 05:03 PM EST
--- OUTSIDE RECORDS SUMMARY | 2025-08-14 05:15 | XMS_ITS ---
Author Organization [facility] Address [address] [facility] [address] [place] [address] Care Team Providers Care Funeral Service Manager Name Role Phone Claire Ramirez Primary Care Provider [phone] Delvin Newton Unavailable Unavailable Allergies Allergen (clinical drug ingredient) Drug/Non Drug Allergy documented on EMR Reaction Allergy Type Onset Date Status ARIPIPRAZOLE ANALOGU ES (uncoded) itching Allergy Active aripiprazole Abilify itching Drug Allergy Acti ve aripiprazole ARIPiprazole itching Drug Allergy A ctive REASON FOR VISIT productive cough-clear mucus, headache, not sleeping Medications Medication SIG (Take, Route, Frequency, Duration) Notes Start Date End Date Status Trelegy Ellipta 100-62.5-25 MCG/ACT Aerosol Powder Breath Activated 1 puff Inhalation Once a day; Duration: 30 days Active Amoxicillin-Pot Clavulanate 875-125 MG Tablet 1 tablet Orally every 12 hrs; Duration: 7 days please deliver 08/14/2025 Active Benzonatate 200 MG Capsule 1 capsule as needed for cough Orally Three times a day; Duration: 5 days please deliver 08/14/2025 Active Acetaminophen-Codeine 300-30 MG Tablet 1 tablet as needed Orally twice a day Active Fluticasone Propionate 50 MCG/ACT Suspension 1 spray in each nostril Nasally Twice a day; Duration: 30 days 08/14/2025 Active Levothyroxine Sodium 100 mcg Tablet TAKE ONE TABLET BY MOUTH EVERY DAY; Duration: 90 Active Levalbuterol HCl 0.63 MG/3ML Nebulization Solution INHALE THE CONTENTS OF 1 VIAL VIA NEBULIZER EVERY 6 HOURS NEEDED FOR SHORTNESS OF BREATH; Duration: 15 Active Omeprazole 40 mg Capsule Delayed Release TAKE ONE CAPSULE BY MOUTH TWICE DAILY; Duration: 90 Active Montelukast Sodium 10 MG Tablet 1 tab(s) orally once a day; Duration: 90 days Active ALPRAZolam 1 mg Tablet TAKE ONE TABLET B Y MOUTH THREE TIMES DAILY NEEDED FOR ANXIETY MAY CAUSE DROWSINESS; Duration: 30 06/30/2025 Active Nicotine 21 MG/24HR Patch 24 Hour 1 patch to skin Transdermal Once a day; Duration: 30 days 04/05/2025 Active Metoprolol Succinate ER 50 MG Tablet Extended Release 24 Hour TAKE ONE TABLET BY MOUTH EVERY DAY; Duration: 30 days Active DULoxetine HCl 30 MG Capsule Delayed Release Particles 1 cap(s) orally 2 times a day; Duration: 90 days Active metFORMIN HCl ER 500 mg Tablet Extended Release 24 Hour 1 tab orally twice a day; Duration: 90 days Active Levocetirizine Dihydrochloride 5 MG Tablet 1 tab(s) orally once a day (in the evening); Duration: 90 days Active Rosuvastatin Calcium 20 MG Tablet 1 tab(s) orally once a day; Duration: 90 days Active Furosemide 40 MG Tablet 1 tab(s) orally 2 times a day; Duration: 30 days Active Methocarbamol 500 MG Tablet 1 tablet Orally every 8 hours as needed for muscle pain; Duration: 7 days 03/08/2025 Active Vitamin D (Ergocalciferol) 1.25 MG (77739 UT) Capsule 1 cap(s) orally once a week; Duration: 30 day(s) Active PORTABLE OXYGEN (OXYLITE) DX: COPD 03/18/2023 Active Aspirin 81 MG Tablet Delayed Release 1 tab(s) orally once a day; Duration: 30 day(s) Active Alendronate Sodium 70 MG Tablet 1 tab(s) orally once a week Active POTASSIUM CHLORIDE (VQW-EQUV-WDF 10) 10 MEQ TABLET, EXTENDED RELEASE TAKE ONE TABLET BY MOUTH THREE TIMES A WEEK; Duration: 84 Active Januvia ( PHOSPHATE) 100 MG TABLET 1 TAB(S) ORALLY ONCE A DAY Active linaCLOtide 72 MCG Capsule 1 cap(s) orally once a day Active MILNACIPRAN 100 MG TABLET 1 TAB(S) ORALLY 2 TIMES A DAY Active Social History Tobacco Use: Social History [...] frequency:coffee Living Will No Section Notes: vapes Vital Signs Temperature 97.6 degrees Fahrenheit 08/14/20 25 Blood pressure systolic 118 mm Hg 08/14/20 25 Blood pressure diastolic 68 mm Hg 025 Heart Rate 104 /min 08/14/2025 Height 5 ft 5 in in 08/14/2025 Weight 195.2 lbs 08/14/2025 BMI 32.48 kg/m2 08/14/2025 Encounters Encounter Location Date Provider Diagnosis [facility] [address] [place] [address] 08/14/2025 Claire Ashley Acute non-recurrent frontal sinusitis J01.10 and Wheezing R06.2 Assessments Encounter Date Diagnosis (ICD Code) Assessment Notes Treatment Notes Treatment Clinical Notes Section Notes 08/14/2025 Acute non-recurrent frontal sinusitis (ICD-10 - J01.10) 08/14/2025 Wheezing (ICD-10 - R06.2) encouraged to continue daily Trelegy, FABRICE as needed and encouraged smoking cessation Plan Of Treatment Medication Medication Name Sig Start Date Stop Date Notes Amoxicillin-Pot Clavulanate 875-125 MG Tablet 1 tablet Orally every 12 hrs; Duration: 7 days 08/14/2025 please deliver Benzonatate 200 MG Capsule 1 capsule as needed for cough Orally Three times a day; Duration: 5 days 08/14/2025 please deliver Fluticasone Propionate 50 MCG/ACT Suspension 1 spray in each nostril Nasally Twice a day; Duration: 30 days 08/14/2025 Next Appt Details Follow Up: 6 Weeks, Reason: History and Physical Notes * Examination Category Sub-Category Detail Notes Category Not es ENT/Respiratory Oral Cavity erythema without exudate on pharynx Sinuses : tender frontal sinus es bilaterally Ears: auditory canals norm al bilaterally, air fluid level bilat Neck : no cervical lymphade nopathy Heart : RRR, normal S1 S2, n o murmurs Lungs : sonorous expiratory wheezes, no focal rales or rhonchi General Appearance : well nourished and hydrated, alert Nose : turbinates red, mild congestion Skin : clear without rashes Progress Notes * Andrés LEMAaDOB: 7 (79 yo F)Acc No.[id number]:08/14/2025 Progress Notes Patient: Sindy SWARTZ Provider: SLAVA Grimaldo :1945 A ge:79 Y S ex:Female Date:08/14/2025 Address:[address] [place], [place] [id number] Subjective: * Chief Complaints: * 1 . Productive cough-clear mucus, headache. 2. Not sleeping. * HPI: E NT/respiratory: 79-year-old female with chronic allergies and tobacco use presents with complaints of productive cough, frontal sinus pain, rhinorrhea and difficulty sleeping over the past 7 to 10 days. No fevers. She continues to smoke. Reports taking her levocetirizine and Singulair routinely. * ROS: R ESPIRATORY: See HPI Y es. C ARDIOLOGY: no C hest pain. n o L eg edema. C ONSTITUTIONAL: no L oss of appetite. n o F ever. G ASTROENTEROLOGY: no V omiting. * Medical History: * Social History: S [...] , Taking Vitamin D (Ergocalciferol) 1.25 MG (84362 UT) Capsule 1 cap(s) orally once a week , Taking POTASSIUM CHLORIDE (ESW-ZDKP-OQQ 10) 10 MEQ TABLET, EXTENDED RELEASE TAKE ONE TABLET BY MOUTH THREE TIMES A WEEK , Taking Furosemide 40 MG Tablet 1 tab(s) orally 2 times a day , Taking Rosuvastatin Calcium 20 MG Tablet 1 tab(s) orally once a day , Taking Levocetirizine Dihydrochloride 5 MG Tablet 1 tab(s) orally once a day (in the evening) , Taking Methocarbamol 500 MG Tablet 1 [...] FOR ANXIETY MAY CAUSE DROWSINESS , Taking Omeprazole 40 mg Capsule Delayed Release TAKE ONE CAPSULE BY MOUTH TWICE DAILY , Taking Levalbuterol HCl 0.63 MG/3ML Nebulization Solution INHALE THE CONTENTS OF 1 VIAL VIA NEBULIZER EVERY 6 HOURS NEEDED FOR SHORTNESS OF BREATH , Taking Levothyroxine Sodium 100 mcg Tablet TAKE ONE TABLET BY MOUTH EVERY DAY , Taking Trelegy Ellipta 100-62.5-25 MCG/ACT Aerosol Powder Breath Activated 1 puff Inhalation Once a day , Discontinued Nitrofurantoin Monohyd Macro 100 MG Capsule 1 capsule with food Orally every 12 hrs , Discontinued Cefdinir 300 MG Capsule 300 mg Orally 2 times a day , Medication List reviewed and reconciled with the patient * Allergies: A RIPiprazole: itching, Abilify: itching, ARIPIPRAZOLE ANALOGUES: itching. Objective: * Vitals: N urse: jl, Pain: 7, Temp: 97.6, RR: 20, HR: 104, BP: 118/68, Ht: 5 ft 5 in, Wt: 195.2, BMI:32.48. * Examination: E NT/Respiratory: General Appearance : w ell nourished and hydrated, alert.? Ears: a uditory canals normal bilaterally, air fluid level bilat. Nose : t urbinates red, mild congestion. Sinuses : t ingel frontal sinuses bilaterally. Oral Cavity e rythema without exudate on pharynx. Neck : n o cervical lymphadenopathy. Heart : R RR, normal S1 S2, no murmurs. Lungs : s onorous expiratory wheezes, no focal rales or rhonchi. Skin : c lear without rashes. Assessment: * Assessment: 1. A cute non-recurrent frontal sinusitis - J01.10 (Primary) 2 . W heezing - R06.2 Plan: * Treatment: 2. W fred Clinical Notes: encouraged to continue daily Trelegy, FABRICE as needed and encouraged smoking cessation * Follow Up: 6 Weeks * * Sign off status: Completed true * Provider: SLAVA Grimaldo Date: 10/15/2024 Generated for Honey aquino/Francisco/Gary on: 05:03 PM EST
--- OUTSIDE RECORDS SUMMARY | 2025-09-12 16:59 | XMS_ITS | Encounter Summary ---
Author Organization [employer] ([place], [place], [place], [place], [place]) Address [address] [place] [address] Care Team Providers Care Casino Assistant Manager Name Role Phone Unavailable Primary Care Provider Unavailabl e Encounter Details Date Type Department Care Team (Late st Contact Info) Description 04/15/2021 Transcribed Document [facility] [place] Family Medicine [address] [place] [address] ProviderPantera MD [address] [place] [address] Social History Tobacco Use Types [...] Yes All Active Orders Reviewed : Yes eCleste Trujillo RN - 04/15/2021 18:25 EDT documented in this encounter Plan of Treatment Not on file documented as of this encounter Visit Diagnoses Not on filedocumented in this encounter
--- OUTSIDE RECORDS SUMMARY | 2025-09-12 16:59 | XMS_ITS | Encounter Summary ---
Author Organization [employer] ([place], [place], [place], [place], [place]) Address [address] [place] [address] Care Team Providers Care Front Desk Specialist Name Role Phone Unavailable Primary Care Provider Unavailabl e Encounter Details Date Type Department Care Team (Late st Contact Info) Description 04/15/2021 Transcribed Document [facility] [place] [address] [place] [address] ProviderPantera MD [address] [place] [address] Social History Tobacco Use Types [...] Health Plan: [employer]ICE PPO Policy Number: [id number] Authorization Number: Insurance Primary Name : [employer]ICE PPO Policy Number: [id number] Authorization Status-Primary : Awaiting callback Reference Number-Primary : Pend ref #[id number] Authorized Service Begin Date-Primary : 04/14/2021 EDT Authorization Comments-Primary : Ref to [employer] Historical Authorization Comments-Primary : Comment 1: Pend ref no per Availity, reviewer has access to [place] (NICOLÁS LUIS RN 04/15/2021 09:26) NICOLÁS LUIS RN - 04/15/2021 15:15 EDT Electronically signed by Major [facility] Conversion Occupational Psychologist Cerner at 01/02/2023 6:18 PM CDT documented in this encounter Plan of Treatment Not on file documented as of this encounter Visit Diagnoses Not on filedocumented in this encounter
--- OUTSIDE RECORDS SUMMARY | 2025-09-12 16:59 | XMS_ITS | Encounter Summary ---
Author Organization [employer] ([place], [place], [place], [place], [place]) Address [address] [place] [address] Care Team Providers Care Bartenders Name Role Phone Unavailable Primary Care Provider Unavailabl e Encounter Details Date Type Department Care Team (Late st Contact Info) Description 04/15/2021 Transcribed Document [facility] [place] Family Medicine [address] [place] [address] ProviderPantera MD [address] [place] [address] Social History Tobacco Use Types [...] OCCUPATIONAL THERAPIST NON-EXEMPT - 04/16/2021 13:01 EDT Nursing Home Goals, OT Grooming LTG Grid Goal #1 [...] or set up Equipment : Long Handled Bilingual Manager, Sock aid Date to Meet : 04/30/2021 [...]
--- OUTSIDE RECORDS SUMMARY | 2025-09-12 16:59 | XMS_ITS | Encounter Summary ---
Author Organization [employer] ([place], [place], [place], [place], [place]) Address [address] [place] [address] Care Team Providers Care Hydraulic Boom Operator Name Role Phone Unavailable Primary Care Provider Unavailabl e Encounter Details Date Type Department Care Team (Late st Contact Info) Description 04/15/2021 Transcribed Document [facility] [place] Family Medicine [address] [place] [address] ProviderPantera MD [address] [place] [address] Social History Tobacco Use Types [...] JANET GRAHAM, PT - 04/16/2021 12:10 EDT Skilled Nursing Goals Mobility/Bed Mobility LTG PT Grid Goal [...] JANET GRAHAM, PT - 04/16/2021 12:10 EDT [facility] PT Charges PT Therap. Exercise 15 min : 1 PT Eval Low Complexity : 1 JANET GRAHAM PT - 04/16/2021 12:10 EDT documented in this encounter Plan of Treatment Not on file documented as of this encounter Visit Diagnoses Not on filedocumented in this encounter
--- OUTSIDE RECORDS SUMMARY | 2025-09-12 16:59 | XMS_ITS | Encounter Summary ---
Author Organization [employer] ([place], [place], [place], [place]) Address [address] [place] [address] Care Team Providers Care Adzing And Boring Machine Feeder Name Role Phone Unavailable Primary Care Provider Unavailabl e Encounter Details Date Type Department Care Team (Late st Contact Info) Description 04/15/2021 Transcribed Document [facility] [place] Family Medicine [address] [place] [address] ProviderPantera MD [address] [place] [address] Social History Tobacco Use Types [...] EDT Electronically signed by Olga Gonsalves Conversion Interventional Sale Consultant Cerner at 01/02/2023 6:26 PM CDT documented in this encounter Plan of Treatment Not on file documented as of this encounter Visit Diagnoses Not on filedocumented in this encounter
--- OUTSIDE RECORDS SUMMARY | 2025-09-12 17:00 | XMS_ITS | Encounter Summary ---
Author Organization [employer] ([place], [place], [place], [place]) Address [address] [place] [address] Care Team Providers Care Milk Pickup Truck Driver Name Role Phone Unavailable Primary Care Provider Unavailabl e Encounter Details Date Type Department Care Team (Late st Contact Info) Description 04/15/2021 Transcribed Document [facility] [place] Family Medicine [address] [place] [address] ProviderPantera MD [address] [place] [address] Social History Tobacco Use Types [...] Fibromyalgia, and GERD. She was transferred from [facility] for GI evaluation due to positive stool guaiac. She reports she has had diarrhea for 1 week, with lower abdominal cramping as well as some vomiting. She states she was also experiencing some dizziness. She was initially evaluated at [facility], admitted over night for observation and released the next day. She reports her vomiting subsided but continued to have diarrhea and was then evaluated at [facility]. She was found to have TENA, [...] PRN Qnasl 80 mcg/inh nasal spray, 2 [place], Nasal, Daily, PRN rosuvastatin 20 mg oral [...] Lymph # 1.63 x10(3)/uL 04/15/2021 00:49 EDT [place] % 8.8 % 04/15/2021 00:49 EDT [place] # 1.39 K/uL (High) 04/15/2021 00:49 EDT [...] TSH 0.360 mcInt Units/mL 04/15/2021 00:49 EDT Electronically signed by Major, [facility] Conversion Woodworking Machine Feeder Cerner at 01/02/2023 6:06 PM CDT documented in this encounter Plan of Treatment Not on file documented as of this encounter Visit Diagnoses Not on filedocumented in this encounter
--- OUTSIDE RECORDS SUMMARY | 2025-09-12 17:00 | XMS_ITS | Encounter Summary ---
Author Organization [employer] ([place], [place], [place], [place], [place]) Address [address] [place] [address] Care Team Providers Care Commercial Hvac Technician Name Role Phone Unavailable Primary Care Provider Unavailabl e Encounter Details Date Type Department Care Team (Late st Contact Info) Description 04/15/2021 Transcribed Document [facility] [place] [address] [place] [address] ProviderPantera MD [address] [place] [address] Social History Tobacco Use Types [...] form. Electronically signed by Olga Gonsalves Conversion Shredding Machine Knife Changer [place] at 01/04/2023 7:51 PM CDT documented in this encounter Plan of Treatment Not on file documented as of this encounter Visit Diagnoses Not on filedocumented in this encounter
--- OUTSIDE RECORDS SUMMARY | 2025-09-12 17:00 | XMS_ITS | Encounter Summary ---
Author Organization [employer] ([place], [place], [place], [place], [place]) Address [address] [place] [address] Care Team Providers Care Teletype Technician Name Role Phone Unavailable Primary Care Provider Unavailabl e Encounter Details Date Type Department Care Team (Late st Contact Info) Description 04/15/[address] [facility] [place] Family Medicine [address] [place] [address] Provider, MD Pantera [address] [place] [address] Social History Tobacco Use Types [...] Historical ProviderMD - 04/15/2021 12:50 PM CDT [facility] Endo PACU Summary Primary Physician: NIKHIL RINCON MD Finalized Date/Time: 04/15/21 13:58:40 Pt. Name: SINDY NGUYEN D.O.B./Sex: 1945 Female Med Rec #: [id number] Physician: RODRIGO BASURTO DO-INT Financial #: [id number] Pt. Type: I Room/Bed: [facility]/1 Admit/Disch: 04/14/21 23:14:00 - Institution: [facility] PACU Case Times Entry 1 In PACU I 04/15/21 13:31:00 Ready for PACU 04/15/21 13:55:00 Discharge Discharge from PACU 04/15/21 13:57:00 I Last Modified By: Harriett Antoine RN 04/15/21 13:58:38 [facility]o PACU Case Times Audit 04/15/21 13:58:38 Highway Painter Helper: JACKELIN Modifier: JACKELIN <+> 1 Ready for PACU Discharge <+> 1 Discharge from PACU I Finalized By: Harriett Antoine, RN Document Signatures Signed By: Harriett Antoine, REM[place] 04/15/21 13:[address] [facility] Conversion Orthopedic Brace Maker Cerner at 01/02/2023 6:09 PM CDT documented in this encounter Plan of Treatment Not on file documented as of this encounter Visit Diagnoses Not on filedocumented in this encounter
--- OUTSIDE RECORDS SUMMARY | 2025-09-12 17:00 | XMS_ITS | Encounter Summary ---
Author Organization [employer] ([place], [place], [place], [place], [place]) Address [address] [place] [address] Care Team Providers Care Sas Statistical Programmer Name Role Phone Unavailable Primary Care Provider Unavailabl e Encounter Details Date Type Department Care Team (Late st Contact Info) Description 04/15/2021 Transcribed Document [facility] [place] Family Medicine [address] [place] [address] ProviderPantera MD [address] [place] [address] Social History Tobacco Use Types [...]
--- OUTSIDE RECORDS SUMMARY | 2025-09-12 17:00 | XMS_ITS | Encounter Summary ---
Author Organization [employer] ([place], [place], [place], [place], [place]) Address [address] [place] [address] Care Team Providers Care Stave Bolt Equalizer Name Role Phone Unavailable Primary Care Provider Unavailabl e Encounter Details Date Type Department Care Team (Late st Contact Info) Description 04/15/2021 Transcribed Document [facility] [place] Family Medicine [address] [place] [address] ProviderPantera MD [address] [place] [address] Social History Tobacco Use Types [...] 04/15/2021 12:03 EDT Electronically signed by Major [facility] Conversion Casing In Line Setter Cerner at 01/02/2023 6:03 PM CDT documented in this encounter Plan of Treatment Not on file documented as of this encounter Visit Diagnoses Not on filedocumented in this encounter
--- OUTSIDE RECORDS SUMMARY | 2025-09-12 17:00 | XMS_ITS | Encounter Summary ---
Author Organization [employer] ([place], [place], [place], [place], [place]) Address [address] [place] [address] Care Team Providers Care Pharmacovigilance Scientist Name Role Phone Unavailable Primary Care Provider Unavailabl e Encounter Details Date Type Department Care Team (Late st Contact Info) Description 04/15/2021 Transcribed Document [facility] [place] [address] [place] [address] ProviderPantera MD [address] [place] [address] Social History Tobacco Use Types [...] Health Plan: [employer] CHOICE PPO Policy Number: [id number] Authorization Number: Insurance Primary Name : [employer] CHOICE PPO Policy Number: [id number] Authorization Status-Primary : Awaiting callback Reference Number-Primary : Pend ref #[id number] Authorized Service Begin Date-Primary : 04/14/2021 EDT [...]
--- OUTSIDE RECORDS SUMMARY | 2025-09-12 17:00 | XMS_ITS | Encounter Summary ---
Author Organization [employer] ([place], [place], [place], [place], [place]) Address [address] [place] [address] Care Team Providers Care Welding Production Supervisor Name Role Phone Unavailable Primary Care Provider Unavailabl e Encounter Details Date Type Department Care Team (Late st Contact Info) Description 04/15/2021 Transcribed Document [facility] [place] [address] [place] [address] ProviderPantera MD [address] [place] [address] Social History Tobacco Use Types [...] 04/15/2021 16:08 EDT by Alice Pool Patient Quilting Machine Operator Robina Phone Call for Consults Consult Phone Call/Page Attempt : Other: spoke with office Consult Reason : sammie Physician Requesting Consult : EDWARDO SCHULTZ PA-C Physician Requested for Consult : ABE العراقي MD-URO Provider Team Notified Name : Urology Physician Covering for Consult : ROSITA LARKIN MD Date and Time Call Returned : 04/15/2021 16:25 EDT Alice Pool Patient Quilting Machine Operator I - 04/15/2021 16:24 EDT documented in this encounter Plan of Treatment Not on file documented as of this encounter Visit Diagnoses Not on filedocumented in this encounter
--- OUTSIDE RECORDS SUMMARY | 2025-09-12 17:00 | XMS_ITS | Encounter Summary ---
Author Organization [employer] ([place], [place], [place], [place], [place]) Address [address] [place] [address] Care Team Providers Care Kitman Name Role Phone Unavailable Primary Care Provider Unavailabl e Encounter Details Date Type Department Care Team (Late st Contact Info) Description 04/14/2021 Transcribed Document [facility] [place] Family Medicine [address] [place] [address] ProviderPantera MD [address] [place] [address] Social History Tobacco Use Types [...] listed. Denies hematemesis. Patient was admitted to [facility] on 04/12 and discharged on 04/13 for same symptoms and was diagnosed with viral gastroenteritis and dehydration. Patient then presented to [facility] for same symptoms. She was diagnosed with [...] Int Units, Oral, 0 Refill(s) Flonase: 1 [place], Nostrils Both, Daily, 0 Refill(s) Januvia: 100 [...] Drisdol 50,000 Int Units, Oral Flonase 1 [place], Nostrils Both, Daily furosemide 40 mg, PRN, [...] Problem list: Medical Cataract / SNOMED CT 500714265 / Confirmed Heart failure / SNOMED CT 700846812 / Confirmed Hypertension / SNOMED CT 94713563 / Confirmed Hyperlipidemia / SNOMED CT 15479898 / Confirmed Pulmonary embolism / SNOMED CT 29708720 / Confirmed COPD (chronic obstructive pulmonary disease) / SNOMED CT 82072932 / Confirmed Sleep apnea / SNOMED CT 679566509 / Confirmed Tobacco use / SNOMED CT 809941115 / Confirmed GERD - Gastro-esophageal reflux disease / SNOMED CT 4065666901 / Confirmed Renal calculus / SNOMED CT 463130181 / Confirmed Back pain / SNOMED CT 991918979 / Confirmed Arthritis / SNOMED CT 4202230 / Confirmed Fibromyalgia / SNOMED CT 9398545064 / Confirmed Diabetes mellitus type II / SNOMED CT 45200259 / Confirmed Thyroid disease / SNOMED CT 666450896 / Confirmed Migraine / SNOMED CT 33683136 / Confirmed Metabolic encephalopathy / SNOMED CT 85925054 / Confirmed Migraine / SNOMED CT 00560946 / Confirmed Esophageal stricture / SNOMED CT 514997008 / Confirmed Anxiety / SNOMED CT 0152796030 / Confirmed Vitamin D deficiency / SNOMED CT 69467125 / Confirmed Vitamin B 12 deficiency / SNOMED CT 9427210576 / Confirmed Mixed incontinence / SNOMED CT 5941724049 / Confirmed Bipolar 1 disorder / SNOMED CT 5544363296 / Confirmed Major depression / SNOMED CT 6322467029 / Confirmed Insomnia / SNOMED CT 409314594 / Confirmed 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
--- OUTSIDE RECORDS SUMMARY | 2025-09-12 17:00 | XMS_ITS | Referral Summary ---
Author Organization [employer] ([place], [place], [place], [place], [place]) Address [address] [place] [address] Care Team Providers Care Retirement Specialist Name Role Phone Unavailable Primary Care [...]
--- OUTSIDE RECORDS SUMMARY | 2025-09-12 17:00 | XMS_ITS | Encounter Summary ---
Author Organization [employer] ([place], [place], [place], [place], [place]) Address [address] [place] [address] Care Team Providers Care Evs Tech Name Role Phone Unavailable Primary Care Provider Unavailabl e Encounter Details Date Type Department Care Team (Late st Contact Info) Description 04/14/[address] [facility] [place] [address] [place] [address] ProviderPantera MD [address] [place] [address] Social History Tobacco Use Types [...] On: 04/15/2021 14:06 EDT by Jesica Johnston Dietitian Nutrition Assessment Nutrition Assessment Reason : Automatic referral Jesica Johnston Dietitikiera - 04/15/2021 14:06 EDT Current Nutrition Regimen [...]
--- OUTSIDE RECORDS SUMMARY | 2025-09-12 17:00 | XMS_ITS | Encounter Summary ---
Author Organization [employer] ([place], [place], [place], [place], [place]) Address [address] [place] [address] Care Team Providers Care Middle School History Teacher Name Role Phone Unavailable Primary Care Provider Unavailabl e Encounter Details Date Type Department Care Team (Late st Contact Info) Description 04/15/2021 Transcribed Document [facility] [place] [address] [place] [address] ProviderPantera MD [address] [place] [address] Social History Tobacco Use Types [...] 04/16/2021 08:28:00 EDT morphine,1mg IV Push,Left Antecubital Imelda,Pain (Severe 7-10) Pain Assessment Pain Assessment : [...]
--- OUTSIDE RECORDS SUMMARY | 2025-09-12 17:00 | XMS_ITS | Encounter Summary ---
Author Organization [employer] ([place], [place], [place], [place], [place]) Address [address] [place] [address] Care Team Providers Care Group Exercise Class Instructor Name Role Phone Unavailable Primary Care Provider Unavailabl e Encounter Details Date Type Department Care Team (Late st Contact Info) Description 04/15/2021 Transcribed Document [facility] [place] [address] [place] [address] ProviderPantera MD [address] [place] [address] Social History Tobacco Use Types [...] form. Electronically signed by Olga Gonsalves Conversion Radioactive Waste Disposal Dispatcher Cerner at 01/04/2023 7:51 PM CDT documented in this encounter Plan of Treatment Not on file documented as of this encounter Visit Diagnoses Not on filedocumented in this encounter
--- OUTSIDE RECORDS SUMMARY | 2025-09-12 17:00 | XMS_ITS | Encounter Summary ---
Author Organization [employer] ([place], [place], [place], [place], [place]) Address [address] [place] [address] Care Team Providers Care Systems Protection Technician Name Role Phone Unavailable Primary Care Provider Unavailabl e Encounter Details Date Type Department Care Team (Late st Contact Info) Description 04/15/2021 Transcribed Document [facility] [place] [address] [place] [address] Provider, MD Pantera [address] [place] [address] Social History Tobacco Use Types [...] Historical ProviderMD - 04/15/2021 2:00 PM CDT [facility] [place] PreOp Summary Primary Physician: NIKHIL RINCON MD Finalized Date/Time: 04/15/21 12:09:37 Pt. Name: SINDY NGUYEN D.O.B./Sex: 1945 Female Med Rec #: [id number] Physician: RODRIGO BASURTO DO-INT Financial #: [id number] Pt. Type: I Room/Bed: [facility]/ Admit/Disch: 04/14/21 23:14:00 - Institution: [facility] [place] PreOp Case Times Entry 1 In [...]
--- OUTSIDE RECORDS SUMMARY | 2025-09-12 17:00 | XMS_ITS | Encounter Summary ---
Author Organization [employer] ([place], [place], [place], [place], [place]) Address [address] [place] [address] Care Team Providers Care Diesel Scoop Operator Name Role Phone Unavailable Primary Care Provider Unavailabl e Encounter Details Date Type Department Care Team (Late st Contact Info) Description 04/14/2021 Transcribed Document [facility] [place] [address] [place] [address] ProviderPantera MD [address] [place] [address] Social History Tobacco Use Types [...] RN - 04/15/2021 14:26 EDT Support Person/Patient Indirect Sales Representative : Yes Support Person/Pt Rep Name : annalise Nasreen - friend Support Person/Pt Rep Contact Information : [phone] Want Family/Rep/Phys Notified of Admit : No Emergency Contact #1 : Celeste Rios Emergency Contact #1 Emergency Contact #1 Relationship : Daughter Emergency Contact #2 : Mariana Tee Emergency Contact #2 Emergency Contact #2 Relationship : Daughter Primary Language : Singaporean Preferred Communication Mode : Verbal Communication Barrier : None Launderette Attendant Needed : No Cathie Peters LPN - [...] Level : 46 or > High Risk [place] Fall Interventions : Adequate lighting, Assistive devices [...] Scale Calc Temp : 0 Cathie Peters ZABRINA - 04/14/2021 23:44 EDT Health Histories Smoking [...] Source : Estimated Height Entry Format : Trinity Height, Feet : 5 ft(Converted to: 152 cm, 60 Inch) Height, Inches : 5 Inch(Converted to: 0 ft 5 Inch, 12.70 cm) Clinical Height : 165.1 cm Weight Source : Estimated [place] Body Weight : 57 kg Cathie Peters ZABRINA Laird 04/14/2021 23:44 EDT Estimated Weight Type of Weight Measurement Est : Trinity Weight, est lb : 194 lb(Converted to: 88 kg) Estimated Clinical Dosing Weight : 88.18 kg Cathie Peters ZABRINA Laird 04/14/2021 23:44 EDT Infectious Disease History [...] : None Tuberculosis Symptoms : None Cathie PetersZABRINA - 04/14/2021 23:44 EDT Tetanus Immunization Status [...] Cathie Peters LPN - 04/14/2021 23:44 EDT [place] Suicide Severity Rating Scale (C-SSRS) CSSRS Past [...] LPN - 04/14/2021 23:44 EDT Spiritual/Cultural Needs Spiritism Preference : Zoroastrianism Cathie Peters LPN - 04/14/2021 23:44 EDT Valuables and Belongings Valuables and Belongings : Clothing, Personal devices, Personal items Clothing : Common streetwear Clothing Disposition : Bedside Personal Device Disposition : With patient Personal Devices : Dentures, upper, Dentures, lower Personal Items : Cell phone, Other: phone irrigation equipment mechanic Personal Items Disposition : Bedside Cathie Peters LPN - 04/14/2021 23:44 EDT Electronically signed by Major [facility] Conversion Airport Operations Duty Manager Cerner at 01/02/2023 6:11 PM CDT documented in this encounter Plan of Treatment Not on file documented as of this encounter Visit Diagnoses Not on filedocumented in this encounter
--- OUTSIDE RECORDS SUMMARY | 2025-09-12 17:00 | XMS_ITS | Encounter Summary ---
Author Organization [employer] ([place], [place], [place], [place], [place]) Address [address] [place] [address] Care Team Providers Care Door Closer Mechanic Name Role Phone Unavailable Primary Care Provider Unavailabl e Encounter Details Date Type Department Care Team (Late st Contact Info) Description 04/15/2021 Transcribed Document [facility] [place] [address] [place] [address] ProviderPantera MD [address] [place] [address] Social History Tobacco Use Types [...] MD-ANS (Anesthesiologist) NICOLE MEDINA MD-ANS (Anesthesiologist) MAC MAYSI-YORBA, TYLER, MD-ANS (Anesthesiologist) NICOLE MEDINA MD-ANS (Anesthesiologist) Indication [...]
--- OUTSIDE RECORDS SUMMARY | 2025-09-12 17:00 | XMS_ITS | Encounter Summary ---
Author Organization [employer] ([place], [place], [place], [place], [place]) Address [address] [place] [address] Care Team Providers Care Zipper Setter Chainstitch Name Role Phone Unavailable Primary Care Provider Unavailabl e Encounter Details Date Type Department Care Team (Late st Contact Info) Description 04/15/2021 Transcribed Document [facility] [place] [address] [place] [address] ProviderPantera MD [address] [place] [address] Social History Tobacco Use Types [...] Historical ProviderMD - 04/15/2021 2:00 AM CDT Subscription Clerk Details Entered On: 04/15/2021 4:24 EDT Performed [...]
--- OUTSIDE RECORDS SUMMARY | 2025-09-12 17:00 | XMS_ITS | Encounter Summary ---
Author Organization [employer] ([place], [place], [place], [place], [place]) Address [address] [place] [address] Care Team Providers Care Junior Estimator Name Role Phone Unavailable Primary Care Provider Unavailabl e Encounter Details Date Type Department Care Team (Late st Contact Info) Description 04/15/2021 Transcribed Document [facility] [place] [address] [place] [address] ProviderPantera MD [address] [place] [address] Social History Tobacco Use Types [...] 04/15/2021 8:00 EDT by Alice Pool Patient Caul Dresser Robina Phone Call for Consults Consult Phone Call/Page Attempt : Other: spoke with chinmay Consult Reason : gi bleed, occult + Physician Requesting Consult : RODRIGO BASURTO DO-INT Physician Requested for Consult : KENRICK SULLIVAN MD Provider Service Notified Name : Gastroenterology Date and Time Call Returned : 04/15/2021 9:34 EDT Alice Pool Patient Caul Dresser Robina - 04/15/2021 9:33 EDT documented in this encounter Plan of Treatment Not on file documented as of this encounter Visit Diagnoses Not on filedocumented in this encounter
--- OUTSIDE RECORDS SUMMARY | 2025-09-12 17:00 | XMS_ITS | Encounter Summary ---
Author Organization [employer] ([place], [place], [place], [place], [place]) Address [address] [place] [address] Care Team Providers Care Cable Tv Installer Name Role Phone Unavailable Primary Care Provider Unavailabl e Encounter Details Date Type Department Care Team (Late st Contact Info) Description 04/15/2021 Transcribed Document [facility] [place] [address] [place] [address] ProviderPantera MD [address] [place] [address] Social History Tobacco Use Types [...] Pantera ProviderMD - 04/15/2021 12:50 PM CDT [facility] Endo IntraOp Summary Primary Physician: NIKHIL RINCON MD Finalized Date/Time: 04/15/21 13:26:28 Pt. Name: YANCY, SINDY Landa /Sex: 1945 Female Med Rec #: [id number] Physician: RODRIGO BASURTO DO-INT Financial #: [id number] Pt. Type: I Room/Bed: [facility]/ Admit/Disch: 04/14/21 23:14:00 - Institution: [facility] Endo - Case Attendance Entry 1 Entry 2 Entry 3 Case Attendee NIKHIL RINCON MD CELLAROSI-TYLER AN Springate, Samantha RN -ANS Role Performed Surgeon/Proceduralist, Anesthesiologist Air Intercept Controller, First First Time In 04/15/21 12:42:00 04/15/21 [...] Christine Robbins RN 04/15/21 13:25:50 04/15/21 13:25:50 [facility] Endo - Case Attendance Audit 04/15/21 13:25:50 Water Conservationist: [id number] Modifier: [id number] 1 <+> Time Out 1 <*> Procedure [...] Biopsy, Gastric Biopsy, Colon Biopsy 04/15/21 13:19:13 Water Conservationist: [id number] Modifier: [id number] 1 <*> Procedure Esophagogastroduodenoscopy, Colonoscopy, Duodenal Biopsy, Gastric Biopsy 2 <*> Procedure Esophagogastroduodenoscopy, Colonoscopy, Duodenal Biopsy, Gastric Biopsy 3 <*> Procedure Esophagogastroduodenoscopy, Colonoscopy, Duodenal Biopsy, Gastric Biopsy 4 <*> Procedure Esophagogastroduodenoscopy, Colonoscopy, Duodenal Biopsy, Gastric Biopsy 5 <*> Procedure Esophagogastroduodenoscopy, Colonoscopy, Duodenal Biopsy, Gastric Biopsy 04/15/21 12:54:09 Water Conservationist: [id number] Modifier: [id number] 1 <*> Procedure Esophagogastroduodenoscopy, Colonoscopy 2 <*> Procedure Esophagogastroduodenoscopy, Colonoscopy 3 <*> Procedure Esophagogastroduodenoscopy, Colonoscopy 4 <*> Procedure Esophagogastroduodenoscopy, Colonoscopy 5 <*> Procedure Esophagogastroduodenoscopy, Colonoscopy 04/15/21 12:51:35 Water Conservationist: [id number] Modifier: [id number] <+> Time Out 2 <*> Procedure Esophagogastroduodenoscopy, Colonoscopy 04/15/21 12:51:14 Water Conservationist: [id number] Modifier: [id number] <+> 5 Case Attendee <+> 5 Role Performed <+> 5 Time In <+> 5 Procedure 04/15/21 12:42:43 Water Conservationist: [id number] Modifier: [id number] 1 <*> Time In 04/15/21 12:33:00 1 <*> Procedure Esophagogastroduodenoscopy, Colonoscopy <+> 2 Procedure <+> 3 Procedure <+> 4 Procedure 04/15/21 12:40:59 Water Conservationist: [id number] Modifier: [id number] 1 <*> Procedure Esophagogastroduodenoscopy, Colonoscopy <+> 2 Time In <+> 3 Time In <+> 4 Time In 04/15/21 12:35:05 Water Conservationist: [id number] Modifier: [id number] 1 <+> Time In 1 <*> Procedure Esophagogastroduodenoscopy, Colonoscopy <+> 2 Case Attendee <+> 2 Role Performed <+> 3 Case Attendee <+> 3 Role Performed <+> 4 Case Attendee <+> 4 Role Performed [facility] Endo - Case times Entry 1 Patient In Room Time 04/15/21 12:33:00 Out Room Time 04/15/21 13:28:00 Anesthesia Start Time 04/15/21 12:33:00 Stop Time 04/15/21 13:28:00 Surgery / Procedure Times Start Time 04/15/21 12:50:00 Stop Time 04/15/21 13:25:00 Last Modified By: Christine Urena RN 04/15/21 13:25:49 [facility] Endo - Case times Audit 04/15/21 13:25:49 Water Conservationist: [id number] Modifier: [id number] <+> 1 Out Room Time <+> 1 Stop Time <+> 1 Stop Time 04/15/21 12:50:27 Water Conservationist: [id number] Modifier: [id number] <+> 1 Start Time [facility] Endo - Cultures and Spec Summary Entry 1 Cultrures and Specimens Specimen Ordered: Yes Test(s) Routine/Path-Lab Requested/Final Disposition Last Modified By: Christine Urena RN 04/15/21 12:54:15 [facility] Endo - Delays Entry 1 Delay Reason Other Duration 0 Minute(s) Last Modified By: Christine Urena RN 04/15/21 12:35:09 [facility] Endo - Departure from OR Entry 1 Integumentary Assessment Integumentary WDL Assessment WDL Transfer/Handoff Transfer to PACU Phase I Post-op Transport Stretcher/Gurney Via Patient Transport Christine Urena, Accompanied by RNELDA MARIA, MD-ANS Last Modified By: Christine Urena RN 04/15/21 12:35:17 [facility] Endo - Endoscopy Details Entry 1 Abdomen Procedure Soft, Non-Tender Assessment Procedure Abdomen 04/15/21 12:33:00 Assessment D/T Radio Frequency Ablation Abdominal Pressure Last Modified By: Christine Urena RN 04/15/21 12:35:25 [facility] Endo - Fire Risk Assessment Entry [...] Modified By: Christine Urena RN 04/15/21 12:35:31 [facility] Endo - General Case Assistant Pastry Chef 1 Case Information OR Endo 03 [facility] Case Level 1 Room Verified Yes Wound Class III - Contaminated Specialty Gastroenterology Anesthesia Type MAC ASA Class 4 Diagnosis Preop Diagnosis GI Bleed/Diarrhea Postop Same As Preop No Postop Diagnosis gastritis Last Modified By: Christine Urena RN 04/15/21 12:55:07 [facility] Endo - General Case Data Audit 04/15/21 12:55:07 Water Conservationist: [id number] Modifier: [id number] 1 <+> Postop Same As Preop 1 <*> Preop Diagnosis GI Bleed 1 <+> Postop Diagnosis [facility] Endo - Intraoperative Assessment Entry 1 Valid History / Yes Physical in Chart Preoperative Yes Checklist Reviewed/Evaluated Patient is Latex No Sensitive Level of WDL Consciousness (WDL = Alert, Oriented to Person, Place, and Time) Last Modified By: Christine Urena RN 04/15/21 12:40:25 [facility] Endo - Intraoperative Equipment Entry 1 Equipment Intraop Monitoring Electrocardiogram Three lead placement (ECG) Electrode Placement Blood Pressure Arm, left upper Location Pulse Oximeter Hand, right Probe Site Antiembolic Devices Scopes Flexible Endoscopes Gastroscope, Used Colonoscope, Peds Scope Serial D, N Number/Identificatio n Number Photo/Video Documentation Photo Yes Video No Last Modified By: Christine Urena RN 04/15/21 12:40:39 [facility] Endo - Patient Positioning Entry 1 [...] Modified By: Christine Urena RN 04/15/21 13:19:14 [facility] Endo - Patient Positioning Audit 04/15/21 13:19:14 Water Conservationist: [id number] Modifier: [id number] 1 <*> Procedure Esophagogastroduodenoscopy, Duodenal Biopsy, Gastric Biopsy 04/15/21 12:54:10 Water Conservationist: [id number] Modifier: [id number] 1 <*> Procedure Esophagogastroduodenoscopy [facility] Endo - Sign In Entry 1 Patient, Site, Yes Procedure Identified Surgical Consent Yes Confirmed Surgical Site N/A Marked by person performing procedure Airway Hypothermia Risk No Warming Measures No Taken Last Modified By: Christine Urena RN 04/15/21 12:40:56 [facility] Endo - Sign Out Entry 1 [...] Modified By: Christine Urena RN 04/15/21 13:26:19 [facility] Endo - Surgical Procedures Entry 1 [...] States 04/15/21 13:16:00 Cecum Reached Anesthesia Type [facility] Specialty Gastroenterology Gastroenterology Wound Class II - Clean-Contaminated III - Contaminated Last Modified By: Christine Urena RN Springate, Samantha, RN 04/15/21 13:26:09 04/15/21 13:26:09 [facility] Endo - Surgical Procedures Audit 04/15/21 13:26:09 Water Conservationist: [id number] Modifier: [id number] <+> 2 Stop <+> 3 Stop <+> 4 Stop <+> 5 Stop 04/15/21 13:21:39 Water Conservationist: [id number] Modifier: [id number] <*> Procedure Colon Biopsy 5 <*> Additional Procedure Description Right colon bx 04/15/21 13:19:10 Water Conservationist: [id number] Modifier: [id number] 2 <*> Procedure Colonoscopy 2 <+> Physician States Cecum Reached <+> 5 Procedure <+> 5 Primary Procedure <+> 5 Primary Surgeon <+> 5 Specialty <+> 5 Start <+> 5 Wound Class <+> 5 Anesthesia Type <+> 5 Additional Procedure Description <+> 5 Physician States Cecum Reached 04/15/21 13:08:07 Water Conservationist: [id number] Modifier: [id number] 1 <*> Procedure Esophagogastroduodenoscopy 1 <+> Stop 2 <*> Procedure Colonoscopy 2 <*> Start 04/15/21 12:50:00 04/15/21 12:54:05 Water Conservationist: [id number] Modifier: [id number] <+> 3 Procedure <+> 3 Primary Procedure <+> 3 Primary Surgeon <+> 3 Specialty <+> 3 Start <+> 3 Wound Class <+> 3 Anesthesia Type <+> 4 Procedure <+> 4 Primary Procedure <+> 4 Primary Surgeon <+> 4 Specialty <+> 4 Start <+> 4 Wound Class <+> 4 Anesthesia Type 04/15/21 12:51:27 Water Conservationist: [id number] Modifier: [id number] <+> 1 Start <+> 2 Start 04/15/21 12:41:16 Water Conservationist: [id number] Modifier: [id number] 1 <*> Procedure Esophagogastroduodenoscopy 1 <+> Specialty 2 <*> Procedure Colonoscopy 2 <+> Specialty [facility] Endo - Time Out Entry 1 [...] Modified By: Christine Urena RN 04/15/21 13:19:15 [facility] Endo - Time Out Audit 04/15/21 13:19:15 Water Conservationist: [id number] Modifier: [id number] 1 <*> Procedure to be Performed Esophagogastroduodenoscopy, Colonoscopy, Duodenal Biopsy, Gastric Biopsy 04/15/21 12:54:10 Water Conservationist: [id number] Modifier: [id number] 1 <*> Procedure to be Performed Esophagogastroduodenoscopy, Colonoscopy Case Comments <None> Finalized By: Christine Urena RN Document Signatures Signed By: Christine Urena RN 04/15/21 13:26 Electronically signed by Major [facility] Conversion Gas Refrigerator Servicer Cerner at 01/02/2023 6:26 PM CDT documented in this encounter Plan of Treatment Not on file documented as of this encounter Visit Diagnoses Not on filedocumented in this encounter
--- OUTSIDE RECORDS SUMMARY | 2025-09-12 17:02 | XMS_ITS | Data Portability ---
Author Organization [facility], [employer] Address [address] [place] [address] Assessment No assessment recorded. Plan of Treatment [...] Recorded Time 07/02/20 18 Urodynamics Interpretation completed [facility] 07/02/2018 12:18:08 07/02/20 18 Urodynamics completed [facility] 07/02/2018 12:25:46 Tonsillectomy completed [facility] 07/02/2018 12:12:59 section completed [facility] 07/02/2018 12:13:17 Cholecystectomy completed [facility] 07/02/2018 12:13:31 Urinary Bladder completed [facility] 07/02/2018 12:13:50 Total Hysterectomy completed [facility] 07/02/2018 12:14:35 partial resection of colon completed [facility] 07/02/2018 12:15:24 colonoscopy completed [facility] 07/02/2018 12:15:35 Imaging Results None recorded. Procedure Notes None recorded. Medical Equipment None Reported. Allergies Allergen ID Allergen Name Allergen Category Reaction Reaction Severity Criticality Documentation Date Start Date Code Code System Note Provider Name and Address Organization Details Recorded Time 358833 ciproflox acin medicatio n Not available Not available Not available 06/02/2018 [facility]51 [facility]47 620002 aripipraz ole medicatio n Not available Not available Not available 06/02/2018 69774 [facility] 17:23[facility]04 267279 phenazopy ridine medicatio n Not available Not available Not available 06/02/2018 8120 [facility] 17:23[facility]15 Medications Name Sig Start [...] Updated DateTime 07/02/2018 165.1 cm 32.1 kg/m2 74005.33 g Manda Horta [facility] 07/02/2018 12:10:38 Social History Question Answer Notes LastModified by Organizat ion Details LastModified Time Tobacco Smoking Status Current Every Day Smoker 1/2 pack/day Manda Horta [facility] 07/02/2018 12:12:31 Marital Status Information not available [...] Condition Response Anxiety Disorder Y Allergies/Hayfever Y Arthritis Y False Teeth Y Chronic Obstructive Pulmonary Disease Y Kidney Stones Y Acid Reflux (GERD) Y Asthma Y Depression Y Sleep Apnea Y Thyroid Disorder Y High Cholesterol Y Gynecological HistoryNo gynecological history recorded. Obstetrics History GPAL:G 0 P 0 0 0 0 Past Encounters Encounter ID Performer Location Encounter Start Date Encounter Closed Date Diagnosis/Indication Diagnosis SNOMED-CT Code Diagnosis ICD10 Code Diagnosis IMO Codes Diagnosis Note [id number] CHINTAN PRICE MD [facility] [address] [place] [address] 07/02/2018 10:02:51 07/02/2018 11:02:09 Urge incontinence of urine 69123246 N39.41 Health Concerns Section Related Observation LastModified by Organization Detai ls LastModified Time None Recorded Concern Status LastModified by Organization Details LastModified Time None Recorded Advance Directives Directive None Recorded Payers Insurance Date Sequence Insurance Name Policy Number Policy Lopez Covered Member ID Lopez Member ID Guarantor Name 05/06/2021 2 PASSPORT BY [employer] (MEDICAID REPLACEMENT - HMO) MEDICAID Sindy Augustin [id number] Sindy Augustin 05/06/2021 1 [place] Sindy Augustin [id number] Sindy Augustin OBGyn Episode No OBEpisode recorded.
--- OUTSIDE RECORDS SUMMARY | 2025-09-12 17:02 | XMS_ITS | Data Portability ---
Author Organization [place] [facility], [facility] Address [address] [place] [address] Assessment Encounter Date Assessment Date Assessment LastModified [...] By Organization Details Last Modified Time 03/07/2024 [id number] back pain: care instructions abux Not available 03/07/2024 16:17:54 learning about relief for back pain abux Not available 03/07/2024 16:17:54 Reason for Referral None Reported. 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 Please review this document and add these problems to the patient's chart manually as needed. Problem Notes None recorded. Procedures Surgical History Date Name Laterality Status Provider Name and Address Organization Details Recorded Time 03/07/20 Pump Refill completed Benja Hinojosa MD [address] [facility],[place] [address], [place], [address], [place] [facility] 03/07/2024 [...] Not Available Not Available No t Available Trelemee Ellipta 100 mcg-62.5 mcg-25 mcg powder for inhalatio n INHALE 1 PUFF BY MOUTH EVERY DAY active Not Available Not Available No t Available Vitals Date Recorded Heart rate Oxygen saturation Pain severity - 0-10 verbal numeric rating [Score] - Reported Body height Body mass index (BMI) Body weight Systolic And Diastolic Provider Name and Address Organization Details Last Updated DateTime 4 78 /min 96 % 10 165.1 cm 27.1 kg/m2 13336.5 6 g 136/78 mm[Hg] MAXIMO STERLING [place] [facility] 14:18:44 Social History Question Answer Notes LastModified by [employer] Details LastModified Time Tobacco Smoking Status Current Every Day Smoker MAXIMO STERLING null, [place] [facility] 03/07/2024 14:13:48 In The 14 Days Before Symptom Onset, Have You Had Close Contact With A Laboratory-confirm ed COVID-19 While That Case Was Ill? No [email or web address] Information n ot available 03/07/2024 In The 14 Days Before Symptom Onset, Have You Had Close Contact With A Person Who Is Under Investigation For COVID-19 While That Person Was Ill? No [email or web address] Information not available 03/07/2024 Have You Been To An Area Known To Be High Risk For COVID-19? No Information not available 03/07/2024 Sex: Female Functional Status Question Answer Note LastModified by [employer] Details LastModified Time Do you use any illicit or recreational drugs? No [email or web address] Information not available 03/07/2024 Do you or have you ever used any other forms of tobacco or nicotine? No Information not available 03/07/2024 What is your level of alcohol consumption? None [email or web address] Information not available 03/07/2024 Mental Status None recorded. Family History Nothing Reported. Medical History Condition Response Coronary Artery Disease N Gout N Hernia N Head Trauma/Injury N Thyroid Problems Y Depression N COPD Y Anemia N Heart Attack (MA) N Ulcers N Diabetes Y Anxiety Disorder [...] ICD10 Code Diagnosis IMO Codes Diagnosis Note [id number] Benja Hinojosa MD [address] [place] [address] 03/07/2024 14:10:22 03/08/2024 06:43:58 Radiculopathy due to lumbar intervertebral disc disorder 6381071347 83462 M51.16 Degenerati on of lumbar intervertebral disc 76508011 M51.36 Lumbar radiculopathy 128 638329 M54.16 Lumbar spondylosis 33550 0009 M47.896 Health Concerns Section Related Observation LastModified by Organization Detai ls LastModified Time None Recorded Concern Status LastModified by Organization Details LastModified Time None Recorded Advance Directives Directive None Recorded Payers Insurance Date Sequence Insurance Name Policy Number Policy Lopez Covered Member ID Lopez Member ID Guarantor Name 03/26/2024 2 [facility] (MEDICAID HMO) Sindyshanique Augustin [id number] Sindy K Wendy 10/11/2024 1 [employer] (MEDICARE REPLACEMENT/A DVANTAGE - PPO) Sindy Cordell Wendy [id number] Sindy K Wendy 04/20/2024 2 [place] Sindy K Wendy [id number] Sindy K Wendy 08/02/2025 2 [place] [facility] - FFS/TRADITION AL Sindy K Wendy [id number] Sindy K Wendy 04/02/2025 PAYMENT PLAN Sindy K Wendy 07/19/2025 1 [facility] (MEDICARE REPLACEMENT/A DVANTAGE - HMO) Sindy Cordell Wendy [id number] Sindy K Wendy 08/02/2025 1 [facility] (MEDICARE REPLACEMENT/A DVANTAGE - HMO) JUDI Jangndshanique Nguyen [id number] Sindy K Wendy Notes Date Note Type Note Provider Name and Address Organization Details Recorded Time 03/07/2024 text/html Back PainReporte d by PatientHPIFor location, patient reportspain radiating to the legsbut reportslumbar. For quality, patient reportssharp,aching,t hrobbing, andconstant. For severity, patient reportsworsening,pain level 10/10, andsevere (8-10). For associated symptoms, patient reportsnumbness of the legs/feet,tingling,ch ills,night sweats, andgait instabilitybut reportsno fever,no weak limbs,no incontinence,no shortness of breath,no unintentional weight loss,no bowel/bladder symptoms, andno recent increase in stress. For duration, patient reportschronic. For context, patient reportstrauma. For aggravating factors, patient reportsmovement/posit ioning,twisting,flexi ng back,extending back,worse at night,lifting,housewo rk,walking,standing, andsitting. For previous injury, patient reportsprevious surgery/procedure date: ___. Benja Hinojosa MD [address], [address], [facility] 03/07/2024 16:18:24 OBGyn Episode No OBEpisode recorded.
--- OUTSIDE RECORDS SUMMARY | 2025-09-12 17:02 | XMS_ITS | Patient Health Record ---
Author Organization [facility] Address [address] [place] [address] Care Team Providers Care Structural Biologist Name Role Phone Claire Ramirez Primary Care Provider [phone] Delvin Newton Unavailable Unavailable Delvin Newton Unavailable [phone] Sheryl Velasquez Unavailable [phone] Migration, Provider Unavailable Unavailable Allergies Allergen (clinical drug ingredient) Drug/Non Drug Allergy documented on EMR Reaction Allergy Type Onset Date Status ARIPIPRAZOLE ANALOGU ES (uncoded) itching Allergy Active aripiprazole Abilify itching Drug Allergy Acti ve aripiprazole ARIPiprazole itching Drug Allergy A ctive Results Component Value Reference Range Flag Notes Urinalysis (Not yet reviewed by provider) Interpretation: Performing Lab: Notes/Report: Color/Clarity yellow Leuk small Nitrite positive Urobili 8.0 Protein 100 pH 5.5 Blood trace-intact Sp. Gr. 1.025 Ketone trace Bili neg Glucose neg Urinalysis Reviewed date:12/26/2024 06:23:01 PM Interpretation: Performing Lab: Notes/Report: Color/Clarity yellow Leuk trace Nitrite pos Urobili 0.2 Protein >=300 pH 5.5 Blood mod Sp. Gr. >=1.030 Ketone trace Bili small Glucose neg BASIC METABOLIC PANEL (06183 ) Reviewed date:01/12/2025 03:27:05 PM Interpretation: Performing Lab:CB, [facility] [address], [place] David Calles Notes/Report: NON-FASTING; NON-FASTING; NON-FASTING GLUCOSE 124 65-99 mg/dL H Fasting reference interval For someone without known diabetes, a glucose value between 100 and 125 mg/dL is consistent with prediabetes and should be confirmed with a follow-up test. UREA NITROGEN (BUN) 15 7-25 mg/dL N CREATININE 0.83 0.60-1.00 mg/dL N EGFR 72 > OR = 60 mL/min/1.73m2 N BUN/CREATININE RATIO SEE NOTE: 6-22 (calc) Not Reported: BUN and Creatinine are within reference range. SODIUM 143 135-146 mmol/L N POTASSIUM 4.5 3.5-5.3 mmol/L N CHLORIDE 99 98-110 mmol/L N CARBON DIOXIDE 33 20-32 mmol/L H CALCIUM 9.6 8.6-10.4 mg/dL N HEMOGLOBIN A1c (496) Reviewed date:01/12/2025 03:27:05 PM Interpretation: Performing Lab:[facility] [id number], [id number] David Calles Notes/Report: NON-FASTING; NON-FASTING; NON-FASTING HEMOGLOBIN A1c 7.0 <5.7 % H test. For someone with known diabetes, a [...] with a follow-up TSH W/REFLEX TO FT4 (23331) Reviewed date:01/12/2025 03:27:05 PM Interpretation: Performing Lab:[facility] [id number], [employer] [id number] David Calles Notes/Report: NON-FASTING; NON-FASTING; NON-FASTING TSH W/REFLEX TO FT4 1.05 0.40-4.50 mIU/L N CULTURE, URINE, ROUTINE (395 ) Reviewed date:01/12/2025 03:27:05 PM Interpretation: Performing Lab:[facility] [id number] [employer], [id number] David Calles Notes/Report: NON-FASTING; NON-FASTING; NON-FASTING CULTURE, URINE, ROUTINE SEE NOTE A E.coli COMMENT: Additional non-predominating organism(s) isolated. These organisms, commonly found on external and internal genitalia, are considered colonizers. No further testing performed. CULTURE, URINE, ROUTINE Micro Number: [id number] Test Status: Final Specimen Source: Urine, clean [...] cefdinir, cefpodoxime, cefprozil, cefuroxime, cephalexin and loracarbef. Urinalysis Reviewed date:07/24/2025 05:07:01 PM Interpretation: Performing Lab: Notes/Report: Color/Clarity cloudy/yellow Leuk small Nitrite positive Urobili 0.2 Protein 100mg pH 6.0 Blood trace-intace Sp. Gr. >=1.030 Ketone neg Bili neg Glucose neg CULTURE, URINE, ROUTINE (395 ) Reviewed date:07/28/2025 10:43:37 AM Interpretation: Performing Lab:[facility] [id number], [facility] ClinicJlzmLC[address] David Calles Notes/Report: NON-FASTING CULTURE, URINE, ROUTINE SEE NOTE A CULTURE, URINE, ROUTINE Micro Number: [id number] Test Status: Final Specimen Source: Urine Specimen [...] date:01/20/2025 03:12:44 PM Interpretation: Performing Lab: Notes/Report: Ankle/Brachial Index--Gopal ferreira BPs Reviewed date:01/20/2025 03:12:43 PM Interpretation: Performing Lab: Notes/Report: M-Complete Blood Count Auto Diff Reviewed date:10/14/2024 10:29:15 AM Interpretation: Performing Lab: Notes/Report: WBC 11.7 4.8-10.8 K/mm3 H RBC 4.39 4.20-5.40 M/mm3 N HGB 13.7 12.2-16.2 g/dL N HCT 44.7 37.0-47.0 % N MCV 101.8 81-99 fl H MCH 31.2 27.0-31.2 pg N MCHC 30.6 31.8-35.4 g/dL L RDW 12.1 11.5-17.5 % N PLT 304 142-424 K/mm3 N MPV 9.6 7.4-10.4 fl N NE% 47.9 37.0-80.0 % N LY% 40.9 10-50 % N MO% 7.1 1.7-9.3 % N EO% 2.9 0.1-12.0 % N BA% 0.9 0.1-2.0 % N NE# 5.6 1.8-7.8 K/mm3 N LY# 4.8 0.7-4.5 K/mm3 H MO# 0.8 0.1-1.0 K/mm3 N EO# 0.3 0.0-0.4 K/mm3 N BA# 0.1 0-0.2 K/mm3 N M-Comprehensive Metabolic Pa amanda Reviewed date:10/14/2024 10:29:15 AM Interpretation: Performing Lab: Notes/Report: NA 141 136-145 mmol/L N K 5.2 3.5-5.1 mmoL/L H CL 101 98-107 mmol/L N CO2 30 22.0-30.0 mmol/L N GAP 15.2 5-15 mEq/L H BUN 19 7-17 mg/dl H CREATT 0.80 0.52-1.04 mg/dl N GFRAA 84 >60 ML/MIN N EGFR 70 >60 ml/min N GLU 112 74-100 mg/dl H CA 9.6 8.4-10.2 mg/dl N BILIT 0.3 0.2-1.3 mg/dl N AST 27 14-36 U/L N ALT 19 12-78 U/L N TP 6.4 6.3-8.2 g/dl N ALB 4.0 3.5-5.0 g/dl N GLOB 2.4 1.3-3.2 g/dL N AGRATIO 1.7 1.1-1.8 N ALP 52 38-126 U/L N M-Hemoglobin A1C Reviewed date:10/14/2024 10:29:15 AM Interpretation: Performing Lab: Notes/Report: HGBA1C 6.5 4.0-6.0 % H < 6% Non-Diabetic Level < 7% Controlled Diabetic Level > 8% Poorly Controlled Diabetic Level M-Lipid Panel Reviewed date:10/14/2024 10:29:15 AM Interpretation: Performing Lab: Notes/Report: Patient Fasting? N TRIG 208 30-150 mg/dl H CHOL 122 140-200 mg/dl L DLDL 51.61 100-129 mg/dL L VLDL 42 0-40 mg/dL H HDL 46 40-60 mg/dl N CHLHDL 2.7 1-3.5 N M-Thyroid Stimulating Hormon e Reviewed date:10/14/2024 10:29:15 AM Interpretation: Performing Lab: Notes/Report: TSH 0.04 0.465-4.68 uIU/mL L H-TVITD Reviewed date:10/14/2024 10:29:15 AM Interpretation: Performing Lab: Notes/Report: TVITD 28.9 30-100 ng/mL L Deficient <20 ng/mL Insufficient 20-30 ng/mL Sufficient 30-100 ng/mL Potential Toxicity >100 ng/mL H-MALBCREA Reviewed date:10/14/2024 10:29:15 AM Interpretation: Performing Lab: Notes/Report: Units: mg/g creat Normal: 0 - 29 Moderately Increased: 30 - 300 Severely Increased: >300 UCREAT 98 Not Estab. mg/dL N Random urine reference range not established. 24 hour urine samples recommended. MICROALB 62.700 0-16.7 mg/L H MALBCREAT 63.9 N Reason For Referral Reason Mammogram DEXA sca n Screening CT Chest Diagnosis 1 Medicare annual well ness visit, subsequent (Z00.00) Referral Organization [facility] CHARLENE HUTCHINS Referring Provider First Name Claire Referring Provider Last Name Ashley Referring Provider Speciality [facility] ctice Referred Organization [facility] Referred Address [address] [facility] [facility], [place],[address] Referred Provider Specialty Diagnostic R adiology General Notes Estefani Huang 2024 03:36:01 PM >sent to [facility] to schedule, Estefani Huang 10/07/2024 04:27:59 PM >checked [facility] Referral Priority Routine Referral Appointment Date 10/25/2024 Reason Bilat lower extremit y SVEN Deyong Diagnosis 1 Dependent rubor (L53 .9) Referral Organization [facility] Referring Provider First Name Claire Referring Provider Last Name Ashley Referring Provider [facility] ctice Referred Organization [facility] Referred Address [address] [facility] [address] [place], [place],[address], Referred Provider Specialty Diagnostic R adiology General Notes Estefani Huang 2024 08:52:49 AM >sent to [facility] Referral Priority Routine Reason ENT- Dr. Trey coates regarding ALCIDES Diagnosis 1 History of obstructi ve sleep apnea (Z86.69) Referral Organization [facility] Referring Provider First Name Claire Referring Provider Last Name Ashley Referring Provider [facility] ctice General Notes Alyssa Spencer 12/2024 12:30:22 PM > faxed and they will call patient to schedule- [facility] doesn't take insurance, Alyssa Spencer 04/26/2025 09:45:10 AM > faxed to [facility] Referral Priority Routine Reason Dr Dan for urinar y incontinence Diagnosis 1 Unspecified urinary incontinence (R32) Referral Organization [facility] Referring Provider First Name Claire Referring Provider Last Name Ashley Referring Provider [facility] ctice Referred Organization [facility] Referred Address [address] [facility] [address] [place], [place],[address], Referred Provider Specialty Gynecology ( Osteopaths only) General Notes Estefani Huang 2024 03:17:10 PM >sent to Dr. Dan Referral Priority Routine Medications Medication SIG (Take, Route, Frequency, Duration) Notes Start Date End Date Status Montelukast Sodium 10 MG Tablet 1 tab(s) orally once a day; Duration: 90 days Active ALPRAZolam 1 mg Tablet TAKE ONE TABLET B Y MOUTH THREE TIMES DAILY NEEDED FOR ANXIETY MAY CAUSE DROWSINESS; Duration: 30 08/28/2025 Active Alendronate Sodium 70 MG Tablet 1 tab(s) orally once a week Active Metoprolol Succinate ER 50 m g Tablet Extended Release 24 Hour TAKE ONE TABLET BY MOUTH EVERY DAY; Duration: 30 Active Vitamin D (Ergocalciferol) 1.25 MG (29674 UT) Capsule 1 cap(s) orally once a week; Duration: 30 day(s) Active Levothyroxine Sodium 100 mcg Tablet TAKE ONE TABLET BY MOUTH EVERY DAY; Duration: 90 Active POTASSIUM CHLORIDE (GRT-TYQH-YUE 10) 10 MEQ TABLET, EXTENDED RELEASE TAKE ONE TABLET BY MOUTH THREE TIMES A WEEK; Duration: 84 prn Active Trelegy Ellipta 100-62.5-25 MCG/ACT Aerosol Powder Breath Activated 1 puff Inhalation Once a day; Duration: 30 days Active Aspirin 81 MG Tablet Delayed Release 1 tab(s) orally once a day; Duration: 30 day(s) Active Omeprazole 40 mg Capsule Delayed Release TAKE ONE CAPSULE BY MOUTH TWICE DAILY; Duration: 90 Active PORTABLE OXYGEN (OXYLITE) DX: COPD 03/18/2023 Active Levalbuterol HCl 0.63 MG/3ML Nebulization Solution INHALE THE CONTENTS OF 1 VIAL VIA NEBULIZER EVERY 6 HOURS NEEDED FOR SHORTNESS OF BREATH; Duration: 15 Active Levocetirizine Dihydrochloride 5 MG Tablet 1 tab(s) orally once a day (in the evening); Duration: 90 days Active DULoxetine HCl 60 MG Capsule Delayed Release Particles 1 capsule every morning orally Once a day; Duration: 30 days Active Acetaminophen-Codeine 300-30 MG Tablet 1 tablet as needed Orally twice a day Active Methocarbamol 500 MG Tablet 1 tablet Ora lly every 8 hours as needed for muscle pain; Duration: 7 days 03/08/2025 Active traZODone HCl 50 MG Tablet 1 tablet at b edtime for sleep Orally Once a day; Duration: 30 days 08/15/2025 Active Furosemide 40 MG Tablet 1 tab(s) orally 2 times a day; Duration: 30 days prn Active Rosuvastatin Calcium 20 MG Tablet 1 tab(s) orally once a day; Duration: 90 days Active Fluticasone Propionate 50 MCG/ACT Suspension 1 spray in each nostril Nasally Twice a day; Duration: 30 days 08/14/2025 Active linaCLOtide 72 MCG Capsule 1 cap(s) oral ly once a day Active metFORMIN HCl ER 500 mg Tablet Extended Release 24 Hour 1 tab orally twice a day; Duration: 90 days Active Januvia ( PHOSPHATE) 100 M G TABLET 1 TAB(S) ORALLY ONCE A DAY Active Immunizations Vaccine Route Administration Date Status Comme nts Fluzone High Dose IM Intramuscular 06/30/2024 Administered Fluzone High Dose IM Intramuscular 06/01/2025 Administered Social History Tobacco Use: Social History [...] frequency:coffee Living Will No Section Notes: vapes vapes vapes vapes vapes vapes vapes vapes vapes vapes vapes vapes Problems Problem Type SNOMED Code ICD Code Onset Dates Problem Status W/U Status Risk Notes Problem Information temporarily unavailable Hypothyroidism, unspecified (E03.9) Active confirmed Problem Information temporarily unavailable Type 2 diabetes mellitus with other specified complication (E11.69) Active confirmed Problem Information temporarily unavailable Nicotine dependence, cigarettes, uncomplicated (F17.210) Active confirmed Problem Information temporarily unavailable Anxiety disorder, unspecified (F41.9) Active confirmed Problem Information temporarily unavailable Psychophysiologic insomnia (F51.04) Active confirmed Problem Information temporarily unavailable Obstructive sleep apnea (adult) (pediatric) (G47.33) Active confirmed Problem Information temporarily unavailable Other chronic pain (G89.29) Active confirmed Problem Information temporarily unavailable Paroxysmal atrial fibrillation (I48.0) Active confirmed Problem Information temporarily unavailable Chronic respiratory failure, unspecified whether with hypoxia or hypercapnia (J96.10) Active confirmed Problem Information temporarily unavailable Chronic respiratory failure with hypoxia (J96.11) Active confirmed Problem Information temporarily unavailable Primary osteoarthritis, right shoulder (M19.011) Active confirmed Problem Information temporarily unavailable Primary osteoarthritis, left shoulder (M19.012) Active confirmed Problem Information temporarily unavailable Fibromyalgia (M79.7) Active confirmed Problem Information temporarily unavailable Full incontinence of feces (R15.9) Active confirmed Problem Information temporarily unavailable Unspecified urinary incontinence (R32) Active confirmed Problem Information temporarily unavailable Weakness (R53.1) Active confirmed Problem Information temporarily unavailable Dependence on other enabling machines and devices (Z99.89) Active confirmed Problem Information temporarily unavailable Anxiety (F41.9) Active confirmed Problem Information temporarily unavailable Vitamin D deficiency (E55.9) Active confirmed Problem Information temporarily unavailable Essential hypertension (I10) Active confirmed Problem Information temporarily unavailable COPD exacerbation (J44.1) Active confirmed Problem Information temporarily unavailable BMI 31.0-31.9,adult (Z68.31) Active confirmed Problem Information temporarily unavailable Chronic pain disorder (G89.4) Active confirmed Problem Information temporarily unavailable Gastric reflux (K21.9) Active confirmed Problem Information temporarily unavailable BMI 32.0-32.9,adult (Z68.32) Active confirmed Problem Information temporarily unavailable Hyperlipidemia, unspecified (E78.5) Active confirmed Problem Information temporarily unavailable Arthritis, 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) Active confirmed Problem Information temporarily unavailable Cigarette smoker (F17.210) Active confirmed Problem Information temporarily unavailable Chronic obstructive pulmonary disease, unspecified COPD type (J44.9) Active confirmed Problem Information temporarily unavailable Non morbid obesity, unspecified obesity type (E66.9) Active confirmed Problem Information temporarily unavailable Acute exacerbation of COPD with asthma (J44.1) Active confirmed Problem Information temporarily unavailable OAB (overactive bladder) (N32.81) Active confirmed Problem Information temporarily unavailable Iron deficiency anemia, unspecified iron deficiency anemia type (D50.9) Active confirmed Problem Information temporarily unavailable BMI 26.0-26.9,adult (Z68.26) Active confirmed Problem Information temporarily unavailable Weight loss counseling, encounter for (Z71.3) Active confirmed Problem Information temporarily unavailable Elevated hemoglobin (D58.2) Active confirmed Problem Information temporarily unavailable Microcytic anemia (D50.9) Active confirmed Problem Information temporarily unavailable Type 2 diabetes mellitus without complication, without long-term current use of insulin (E11.9) Active confirmed Problem Information temporarily unavailable Controlled type 2 diabetes mellitus without complication, without long-term current use of insulin (E11.9) Active confirmed Problem Information temporarily unavailable Pica (F50.89) Active confirmed Problem Information temporarily unavailable Urinary incontinence, mixed (N39.46) Active confirmed Problem Information temporarily unavailable Anxiety state, unspecified (F41.1) Active confirmed Problem Information temporarily unavailable Postmenopausal osteoporosis (M81.0) Active confirmed Problem Information temporarily unavailable Chronic major depressive disorder (F32.9) Active confirmed Problem Information temporarily unavailable Adult BMI 31.0-31.9 kg/sq m (Z68.31) Active confirmed Problem Information temporarily unavailable Thoracic degenerative disc 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) Active confirmed Problem Information temporarily unavailable Advanced COPD (J44.9) Active confirmed Problem Information temporarily unavailable Chronic hypoxemic respiratory failure (J96.11) Active confirmed Problem Information temporarily unavailable Cough (R05.9) Active confirmed Problem Information temporarily unavailable Vitamin D intoxication (E67.3) Active confirmed Vital Signs Heart Rate 109 /min 09/12/2025 Temperature 97.8 degrees Fahrenheit 09/12/2025 Oximetry 87 09/12/2025 Blood pressure diastolic 68 mm Hg 09/12/2025 Height 5 ft 5 in in 09/12/2025 Blood pressure systolic 116 mm Hg 09/12/2025 Weight 195.2 lbs 09/12/2025 BMI 32.48 kg/m2 09/12/2025 Encounters Encounter Location Date Provider Diagnosis [facility] [address] [facility] [address] [place], [place] [id number] 12/17/2024 Provider Migration Chronic obstructive pulmonary disease, unspecified COPD type J44.9 ; Medicare annual wellness visit, subsequent Z00.00 ; Chronic major depressive disorder F32.9 and Advanced COPD J44.9 [facility] [address] [facility] [address] [place] [id number] 09/12/2025 Claire Ramirez Dysuria R30.0 [facility] [address] [facility] [address] [place] [id number] 10/04/2024 Claire Ramirez Psychophysiologic insomnia F51.04 ; [...] tobacco use Z87.891 and Hypothyroidism, unspecified E03.9 [facility] [address] [place] [address] 12/26/2024 Claire Ramirez Dysuria R30.0 ; Acut e UTI N39.0 and Dependent rubor L53.9 [facility] [address] [place] [address] 01/09/2025 Claire Ramirez Psychophysiologic insomnia F51.04 ; Other chronic pain G89.29 ; Type 2 diabetes mellitus with other specified complication E11.69 ; Chronic major depressive disorder F32.9 ; Essential hypertension I10 ; Advanced COPD J44.9 ; Hypothyroidism, unspecified E03.9 and Dysuria R30.0 [facility] [address] [place] [address] 03/06/2025 Claire Ramirez Fall from standing, subsequent encounter W19.XXXD ; Chest wall pain R07.89 ; Closed nondisplaced fracture of third metacarpal bone of left hand, unspecified portion of metacarpal, sequela S62.303S ; Contusion of right knee, subsequent encounter S80.01XD and Contusion of right lower leg, subsequent encounter S80.11XD [facility] [address] [place] [address] 04/17/2025 Claire Ramirez Psychophysiologic insomnia F51.04 ; Other chronic pain G89.29 ; History of obstructive sleep apnea Z86.69 ; Advanced COPD J44.9 and Chronic hypoxemic respiratory failure J96.11 [facility] [address] [place] [address] 06/01/2025 Claire Ramirez Immunization(s) administered Z23 ; Psychophysiologic insomnia F51.04 ; Other chronic pain G89.29 ; History of obstructive sleep apnea Z86.69 ; Advanced COPD J44.9 and Chronic hypoxemic respiratory failure J96.11 [facility] [address] [place] [address] 07/24/2025 Claire Ramirez Dysuria R30.0 ; Unspecified urinary incontinence R32 and Full incontinence of feces R15.9 [facility] [address] [place] [address] 08/14/2025 Claire Ashley Acute non-recurrent frontal sinusitis J01.10 and Wheezing R06.2 [facility] [address] [place] [address] 09/12/2025 Claire Ashley [facility] [address] [place] [address] 10/04/2024 Claire Ashley Breast cancer screen ing by mammogram Z12.31 ; History of nicotine dependence Z87.891 and Asymptomatic postmenopausal state Z78.0 [facility] [address] [place] [address] 10/14/2024 Claire Ashley [facility] [address] [place] [address] 11/10/2024 Claire Ashley [facility] [address] [place] [address] 12/27/2024 Claire Ashley Dependent rubor L53. 9 [facility] [address] [place] [address] 01/05/2025 Claire Ashley [facility] [address] [place] [address] 01/12/2025 Claire Ashley [facility] [address] [place] [address] 03/06/2025 Claire Ashley [facility] [address] [place] [address] 03/08/2025 Claire Ashley [facility] [address] [place] [address] 03/09/2025 Claire Ashley [facility] [address] [place] [address] 04/05/2025 Claire Ashley [facility] [address] [place] [address], [place] [address] 04/20/2025 Delvin Newton Other chronic pain G89.29 [facility] [address] [facility] [address] [place] [address] 04/25/2025 Claire Ashley [facility] [address] [facility] [address] [place] [address] 04/26/2025 Claire Ashley [facility] [address] [facility] [address] [place] [address] 05/02/2025 Delvin Newton [facility] [address] [place] [address] 05/02/2025 Claire Ashley [facility] [address] [facility] [address] [place] [address] 05/04/2025 Claire Ashley [facility] [address] [place] [address] 07/21/2025 Claire Ashley [facility] [address] [place] [address] 08/14/2025 Claire Ashley Chronic major depres sive disorder F32.9 Assessments Encounter Date Diagnosis (ICD Code) Assessment [...] take half a tablet along with 1 kfei-ooh-tnzjiyx acetaminophen every 6 hours as needed for her pain over the next week or 2. Return precautions reviewed 04/17/2025 Psychophysiologic insomnia (ICD-10 - F51.04) multifactoral and already on many sedating medications, Will refer to [facility] for their evaluation regarding possible sleep apnea 04/17/2025 Other chronic pain (ICD-10 - G89.29) Wean gabapentin to 200 mg at night for 2 weeks, 100 mg at night for 2 weeks and then discontinue completely. She continues follow-up with pain management as well. 04/20/2025 Other chronic pain (ICD-10 - G89.29) 06/01/2025 Immunization(s) administered (ICD-10 - Z23) 07/24/2025 Dysuria (ICD-10 - R30.0) 07/24/2025 Unspecified urinary incontinence (ICD-10 - R32) Recommend first a complete pelvic exam to evaluate support of her bladder. May need additional evaluation pending that examination 08/14/2025 Wheezing (ICD-10 - R06.2) encouraged to continue daily Trelegy, FABRICE as needed and encouraged smoking cessation 08/14/2025 Acute non-recurrent frontal sinusitis (ICD-10 - J01.10) 08/14/2025 Chronic major depressive disorder (ICD-10 - F32.9) 09/12/2025 Dysuria (ICD-10 - R30.0) 07/24/2025 Full incontinence of feces (ICD-10 - R15.9) 06/01/2025 Psychophysiologic insomnia (ICD-10 - F51.04) multifactoral and already on many sedating medications, appt pending with ENT regarding possible ALCIDES 04/17/2025 History of obstructive sleep apnea (ICD-10 - Z86.69) 03/06/2025 Closed nondisplaced fracture of third metacarpal [...] 10/04/2024 Asymptomatic postmenopausal state (ICD-10 - Z78.0) 04/17/2025 Advanced COPD (ICD-10 - J44.9) Continue smoking cessation efforts, currently smoking half a pack per day which is down significantly. Supplemental O2 at night 01/09/2025 Chronic major depressive disorder (ICD-10 - F32.9) stable on current regimen 03/06/2025 Contusion of right knee, subsequent encounter (ICD-10 - S80.01XD) 06/01/2025 Other chronic pain (ICD-10 - G89.29) No longer taking gabapentin and pain is no better/worse. She continues follow-up with pain management as well. 04/17/2025 Chronic hypoxemic respiratory failure (ICD-10 - J96.11) 06/01/2025 History of obstructive sleep apnea (ICD-10 - Z86.69) 03/06/2025 Contusion of right lower leg, subsequent encounter (ICD-10 - S80.11XD) 01/09/2025 Essential hypertension (ICD-10 - I10) history of HTN but low normal today, monitor 10/04/2024 Hyperlipidemia, unspecified (ICD-10 - E78.5) continue rosuvastatin 10/04/2024 Polypharmacy (ICD-10 - Z79.899) reviewed risks and precautions to prevent complications 01/09/2025 Advanced COPD (ICD-10 - J44.9) continue Trelegy 06/01/2025 Advanced COPD (ICD-10 - J44.9) Continue smoking cessation efforts, currently smoking about 6 cig per day which is down significantly. Supplemental O2 at night 06/01/2025 Chronic hypoxemic respiratory failure (ICD-10 - J96.11) 01/09/2025 Hypothyroidism, unspecified (ICD-10 - E03.9) 10/04/2024 Chronic major depressive disorder (ICD-10 - F32.9) stable on current regimen 10/04/2024 Chronic hypoxemic respiratory failure (ICD-10 - [...] Z87.891) 10/04/2024 Hypothyroidism, unspecified (ICD-10 - E03.9) Plan Of Treatment Pending Test Test Name Order Date Urinalysis 09/12/2025 CT Scan : Pelvis with contrast 3 M-Complete Blood Count Auto Diff 025 M-Comprehensive Metabolic Panel 10/04/19 25 M-Hemoglobin A1C 10/04/2024 M-Lipid Panel 10/04/2024 M-Thyroid Stimulating Hormone 10/04/2024 M-Respiratory Virus Panel, PCR 3 M-Vitamin D 25 Hydroxy 10/04/2024 M-Microalb/Creat Ratio, Randm Ur 025 M-Urine Culture 09/12/2025 RHEUMATOID FACTOR (4418) 07/07/2023 Insurance Providers Payer Name Payer Address Payer Phone Subscriber Number Group Number Insured Name Patient Relationship to Insured Coverage Start Date Coverage End Date [employer] MEDICARE DUAL [address] [address] [place] [address] [id number] Sindy Lema Self - patient is the [...] surgery x 5 Colonoscopy pain pump 08/2022 removal of pain pump 03/2025 Hospitalization History Reason Date(Month/Year) UTI, VIral Infection & COPD 2022 kidney stone 2021 rectal bleeding 2020 all above surgeries
--- OUTSIDE RECORDS SUMMARY | 2025-09-12 17:03 | XMS_ITS | Encounter Summary ---
Author Organization [employer] ([place], [place], [place], [place], [place]) Address [address] [place] [address] Care Team Providers Care Fire Chief'S Aide Name Role Phone Unavailable Primary Care Provider Unavailabl e Encounter Details Date Type Department Care Team (Late st Contact Info) Description 04/16/2021 Transcribed Document [facility] Radiology [address] [place] [address] Provider, Olga Mott MD Social History Tobacco Use Types Packs/Day Years Used Date Smoking Tobacco: Never Assessed Comments Unknown Sex and Gender Information Value Date Recorded Sex Assigned at Not on file Legal Sex Female 7:22 PM CDT Gender Identity Not on file Sexual Orientation Not on file documented as of this encounter Miscellaneous Notes * [employer]ner Conversion Note - Olga Mott ProviderMD - 04/16/2021 1:30 PM EDT Treatment [...] Stand Device : Belt, gait, Other: B APPLICATIONS INSTRUCTOR Stand to Sit Device : Belt, gait, [...] PHYSICAL THERAPIST NON-EXEMPT - 04/17/2021 13:18 EDT Wool Washing Machine Operator Goals Mobility/Bed Mobility LTG PT Grid Goal #1 Goal #2 Activity : Supine to sit Sit to stand Assist : Independent, modified Independent, modified Date to Meet : 04/30/2021 EDT 04/30/2021 EDT Goal Status : Progressing, continue Progressing, continue Derek Rodriguez PHYSICAL THERAPIST NON-EXEMPT - 04/17/2021 13:18 EDT Derek Rodriguez PHYSICAL THERAPIST NON-EXEMPT - 04/17/2021 13:18 EDT Ambulation LT Grid Goal #1 Device : Walker, front wheel Distance : 200' Assist : Supervision or set-up Date to Meet : 04/30/2021 EDT Goal Status : Progressing, continue Derek Rodriguez, PHYSICAL THERAPIST NON-EXEMPT - 04/17/2021 [...] home health. This was relayed to patient's rn case manager after session. Plan for Treatment [...] PHYSICAL THERAPIST NON-EXEMPT - 04/17/2021 13:18 EDT [place] PT Charges PT Ther Activities Ea 15 Min : 1 Gait Training Each 15 Min : 1 Derek Rodriguez PHYSICAL THERAPIST NON-EXEMPT - 04/17/2021 13:18 EDT documented in this encounter Plan of Treatment Not on file documented as of this encounter Visit Diagnoses Not on filedocumented in this encounter
--- OUTSIDE RECORDS SUMMARY | 2025-09-12 17:03 | XMS_ITS | Encounter Summary ---
Author Organization [employer] ([place], [place], [place], [place], [place]) Address [address] [place] [address] Care Team Providers Care Paper Cone Drying Machine Operator Name Role Phone Unavailable Primary Care Provider Unavailabl e Encounter Details Date Type Department Care Team (Late st Contact Info) Description 04/18/2021 Transcribed Document [facility] Family Medicine [address] [place] [address] ProviderPantera MD [address] [place] [address] Social History Tobacco Use Types [...] Tineo MD - 04/18/2021 11:18 AM CDT [address] [place] [address] Patient Copy Patient Information: Name: SINDY NGUYEN Current Date: 04/18/2021 11:18:07 : 1945 Patient Address: [address] [place] [address] [facility] [address] Patient Attending Physician: TATYANA MEDINA MD Primary Care Provider: SIMON, NOT LISTED Primary Care Provider Phone: Discharge Diagnosis: GI bleed Comment: Follow-up Instructions: With: Address: When: DENNIS SABINA [address], [address] [place] [address] Business (1) Within 2 to 4 days Comments: at the outside hospital you had some abnormalities on CT HEAD. Please discuss this with Dr. Zamorano as these are chronic appearing changes and he needs to follow. Nothing emergent With: Address: When: [place] [address] [place] [address], [address] [place] [address] [facility] (1) Within 2 to 4 weeks Comments: [...] nasal (Qnasl 80 mcg/inh nasal spray) 2 Spring House(s) Nasal Every Day as needed Nasal Congestion. [...] Assistance with quitting is available by contacting 9-018-BFRO-NOW. This is a free resource providing counseling, [...] Be sure to sign up for the [employer] patient portal, which gives you 06/04 access to your medical information ??? including these discharge instructions ??? using your computer, smartphone, or tablet. Just go to [place] to get started. Questions? Call . [facility] would like to thank you for allowing us to assist you with your healthcare needs. YANCY Quarles BRENDA K, (or patient support representative) have received the above patient education materials/instructions and have verbalized understanding: Patient Signature _ Date/Time Patient Crm Coordinator Signature (if needed) Date/Time Clinician/Hospital Crm Coordinator Signature (if needed) Date/Time Electronically signed by Major, [facility] Conversion Call Center Associate Herbner at 01/02/2023 6:09 PM CDT documented in this encounter Plan of Treatment Not on file documented as of this encounter Visit Diagnoses Not on filedocumented in this encounter
--- OUTSIDE RECORDS SUMMARY | 2025-09-12 17:03 | XMS_ITS | Encounter Summary ---
Author Organization [employer] ([place], [place], [place], [place], [place]) Address [address] [place] [address] Care Team Providers Care Can Closing Machine Operator Name Role Phone Unavailable Primary Care Provider Unavailabl e Encounter Details Date Type Department Care Team (Late st Contact Info) Description 04/18/2021 Transcribed Document [facility] Family Medicine [facility] [place] [address] ProviderPantera MD [address] [place] [address] Social History Tobacco Use Types [...] ERICK STALEY PTA - 04/18/2021 14:43 EDT Reference Data Expert Goals Mobility/Bed Mobility LTG PT Grid Goal [...]
--- OUTSIDE RECORDS SUMMARY | 2025-09-12 17:03 | XMS_ITS | Clinical Summary ---
Author Organization [employer] ([place], [place], [place], [place], [place]) Address [address] [place] [address] Care Team Providers Care Motor Vehicle Salesperson Name Role Phone Unavailable Primary Care Provider [...]
--- OUTSIDE RECORDS SUMMARY | 2025-09-12 17:03 | XMS_ITS | Encounter Summary ---
Author Organization [employer] ([place], [place], [place], [place], [place]) Address [address] [place] [address] Care Team Providers Care Poultry Grader Name Role Phone Unavailable Primary Care Provider Unavailabl e Encounter Details Date Type Department Care Team (Late st Contact Info) Description 04/18/2021 Transcribed Document [facility] Family Medicine [address] [place] [address] ProviderPantera MD [address] [place] [address] Social History Tobacco Use Types [...] - 04/18/2021 3:54 EDT Electronically signed by Olga Gonsalves Conversion Business Development Representative [employer] at 01/02/2023 6:20 PM CDT documented in this encounter Plan of Treatment Not on file documented as of this encounter Visit Diagnoses Not on filedocumented in this encounter
--- OUTSIDE RECORDS SUMMARY | 2025-09-12 17:03 | XMS_ITS | Encounter Summary ---
Author Organization [employer] ([place], [place], [place], [place], [place]) Address [address] [place] [address] Care Team Providers Care Admiralty Lawyer Name Role Phone Unavailable Primary Care Provider Unavailabl e Encounter Details Date Type Department Care Team (Late st Contact Info) Description 04/17/2021 Transcribed Document [facility] Family Medicine [address] [place] [address] ProviderPantera MD [address] [place] [address] Social History Tobacco Use Types [...] Health Plan: [employer] CHOICE PPO Policy Number: [id number] Authorization Number: Insurance Primary Name : [employer] CHOICE PPO Policy Number: [id number] Authorization Status-Primary : Denial - admission Reference Number-Primary : Pend ref #[id number] Authorized Service Begin Date-Primary : 04/14/2021 EDT Authorization Comments-Primary : Per VM From Himanshu R denied IP Historical Authorization Comments-Primary : Comment 1: IP appr per Alan PA, em the alan pa review to [...]
--- OUTSIDE RECORDS SUMMARY | 2025-09-12 17:03 | XMS_ITS | Encounter Summary ---
Author Organization [employer] ([place], [place], [place], [place], [place]) Address [address] [place] [address] Care Team Providers Care Datastage Developer Name Role Phone Unavailable Primary Care Provider Unavailabl e Encounter Details Date Type Department Care Team (Late st Contact Info) Description 04/18/2021 Transcribed Document [facility] [place] [address] [place] [address] ProviderPantera MD [address] [place] [address] Social History Tobacco Use Types Packs/Day Years Used Date Smoking Tobacco: Never Assessed Comments Unknown Sex and Gender Information Value Date Recorded Sex Assigned at Not on file Legal Sex Female 7:22 PM CDT Gender Identity Not on file Sexual Orientation Not on file documented as of this encounter Miscellaneous Notes * Cerner Conversion Note - Historical ProviderMD - 04/18/2021 12:39 PM CDT Stroke/Warfarin [...]
--- OUTSIDE RECORDS SUMMARY | 2025-09-12 17:03 | XMS_ITS | Encounter Summary ---
Author Organization [employer] ([place], [place], [place], [place], [place]) Address [address] [place] [address] Care Team Providers Care Corporate Counselor Name Role Phone Unavailable Primary Care Provider Unavailabl e Encounter Details Date Type Department Care Team (Late st Contact Info) Description 04/16/[address] [facility] Family Medicine [address] [place] [address] ProviderPantera MD [address] [place] [address] Social History Tobacco Use Types [...] Health Plan: [employer] CHOICE PPO Policy Number: [id number] Authorization Number: Insurance Primary Name : [employer] CHOICE PPO Policy Number: [id number] Authorization Status-Primary : Awaiting callback Reference Number-Primary : Pend ref #[id number] Authorized Service Begin Date-Primary : 04/14/2021 EDT [...] 04/16/2021 12:58 EDT Electronically signed by Major [facility] Conversion Occupational Health Professional Cerner at 01/02/2023 6:26 PM CDT documented in this encounter Plan of Treatment Not on file documented as of this encounter Visit Diagnoses Not on filedocumented in this encounter
--- OUTSIDE RECORDS SUMMARY | 2025-09-12 17:03 | XMS_ITS | Encounter Summary ---
Author Organization [employer] ([place], [place], [place], [place], [place]) Address [address] [place] [address] Care Team Providers Care Child Adolescent Psychiatrist Name Role Phone Unavailable Primary Care Provider Unavailabl e Encounter Details Date Type Department Care Team (Late st Contact Info) Description 04/18/2021 Transcribed Document [facility] [place] [address] [place] [address] ProviderPantera MD [address] [place] [address] Social History Tobacco Use Types [...] that you work with a diet and nutrition tech (dietitian). What are tips for following this [...] made with white flour. Waffles, pancakes, and Tristanian toast. Bagels. Pretzels. [place] toast, zwieback, and matzoh. Cooked and dried cereals that do not contain whole grains, added fiber, seeds, or dried fruit. Cornmeal. Courtland. Hot and cold cereals made with refined [...] Sports drinks. Herbal tea. Fats and oils [place] oil, canola oil, sunflower oil, flaxseed oil, [...] breads and crackers. Multigrain breads and crackers. Sargents bread. Whole grain or multigrain cereals. Cereals with nuts, raisins, or coconut. Bran. Coarse wheat cereals. Granola. High-fiber cereals. Cornmeal or corn bread. Whole grain pasta. Wild or brown rice. Quinoa. Popcorn. Buckwheat. Wheat germ. Vegetables Potato skins. Raw or undercooked vegetables. All beans and calles sprouts. Cooked greens. Safford. Peas. Cabbage. Beets. Broccoli. Fairland sprouts. Cauliflower. Mushrooms. Onions. Peppers. Parsnips. Okra. [...] are not allowed. Seasoning and other foods Safford tortilla chips. Soups made with vegetables or [...] provider. Document Revised: 12/23/2019 Document Reviewed: 11/03/2017 [employer] Patient Education ? 2020 [employer] Gastrointestinal Bleeding Gastrointestinal (GI) bleeding is [...] Follow these instructions at home: ??? Take raoa-you-wkwibtj and prescription medicines only as told by [...] provider. Document Revised: 04/13/2019 Document Reviewed: 04/13/2019 [employer] Patient Education ? 2020 [employer] Infectious Disease Sepsis, Diagnosis, Adult Sepsis [...] these instructions at home: Medicines ??? Take meqy-qdz-cfqoxfh and prescription medicines only as told by [...] your local emergency services (911 in the .[place] Do not drive yourself to the hospital. [...] provider. Document Revised: 04/08/2019 Document Reviewed: 04/08/2019 [employer] Patient Education ? 2020 [employer] Electronically signed by Olga Gonsalves Conversion Manufacturing Lab Technician Cerner at 01/02/2023 6:04 PM CDT documented in this encounter Plan of Treatment Not on file documented as of this encounter Visit Diagnoses Not on filedocumented in this encounter
--- OUTSIDE RECORDS SUMMARY | 2025-09-12 17:03 | XMS_ITS | Encounter Summary ---
Author Organization [employer] ([place], [place], [place], [place], [place]) Address [address] [place] [address] Care Team Providers Care Lead Mechanical Engineer Name Role Phone Unavailable Primary Care Provider Unavailabl e Encounter Details Date Type Department Care Team (Late st Contact Info) Description 04/18/2021 Transcribed Document [facility] [place] Family Medicine [address] [place] [address] ProviderPnatera MD [address] [place] [address] Social History Tobacco Use Types [...] Health Plan: [employer] CHOICE PPO Policy Number: [id number] Authorization Number: Insurance Primary Name : [employer] CHOICE PPO Policy Number: [id number] Authorization Status-Primary : Denial - admission Reference Number-Primary : Pend ref #[id number] Authorized Service Begin Date-Primary : 04/14/2021 EDT Authorization Comments-Primary : Discussed with Maliha Barksdale agreed to attempt p2p. Called Shelli at and setup for 04/18@2pm with Dr Keller Historical Authorization Comments-Primary : Comment 1: Per VM From Himanshu LUCERO (CHRIS LARKIN RN 04/17/2021 16:06) Comment 2: IP appr per domenica Leon the alan pa review to ER (NICOLÁS [...] EDT Electronically signed by Olga Gonsalves Conversion Entry Level Sales Representative Elham at 01/02/2023 6:14 PM CDT documented in this encounter Plan of Treatment Not on file documented as of this encounter Visit Diagnoses Not on filedocumented in this encounter
--- OUTSIDE RECORDS SUMMARY | 2025-09-12 17:03 | XMS_ITS | Encounter Summary ---
Author Organization [employer] ([place], [place], [place], [place], [place]) Address [address] [place] [address] Care Team Providers Care Grid Caster Name Role Phone Unavailable Primary Care Provider Unavailabl e Encounter Details Date Type Department Care Team (Late st Contact Info) Description 04/19/2021 Transcribed Document [facility] Family Medicine [address] [place] [address] ProviderPantera MD [address] [place] [address] Social History Tobacco Use Types [...] Health Plan: [employer] CHOICE PPO Policy Number: [id number] Authorization Number: Insurance Primary Name : [employer] CHOICE PPO Policy Number: [id number] Authorization Status-Primary : Notification only Reference Number-Primary : Pend ref #[id number] Authorized Service Begin Date-Primary : 04/14/2021 EDT [...]
--- OUTSIDE RECORDS SUMMARY | 2025-09-12 17:03 | XMS_ITS | Encounter Summary ---
Author Organization [employer] ([place], [place], [place], [place], [place]) Address [address] [place] [address] Care Team Providers Care Hydramatic Mechanic Name Role Phone Unavailable Primary Care Provider Unavailabl e Encounter Details Date Type Department Care Team (Late st Contact Info) Description 04/18/2021 Transcribed Document [facility] [place] Family Medicine [address] [place] [address] ProviderPantera MD [address] [place] [address] Social History Tobacco Use Types [...] Historical ProviderMD - 04/18/2021 2:00 AM CDT Icing And Glaze Maker Details Entered On: 04/18/2021 3:42 EDT Performed [...]
--- OUTSIDE RECORDS SUMMARY | 2025-09-12 17:03 | XMS_ITS | Encounter Summary ---
Author Organization [employer] ([place], [place], [place], [place], [place]) Address [address] [place] [address] Care Team Providers Care House Cleaner Supervisor Name Role Phone Unavailable Primary Care Provider Unavailabl e Encounter Details Date Type Department Care Team (Late st Contact Info) Description 04/18/2021 Transcribed Document [facility] [place] [address] [place] [address] ProviderPantera MD [address] [place] [address] Social History Tobacco Use Types [...] 04/18/2021 11:18 AM CDT Salvador Zamorano M.D. [address] [address] [address] [phone] Re: SINDY NGUYEN Date of Visit: 04/14/2021 [...] is strictly prohibited. Sincerely, EDWARDO SCHULTZ [address] [facility] [address] [place] [address] The following document(s) were included in the letter: April 18, 2021 10:47:49 EDT - (04/18/2021) Discharge Note documented in this encounter Plan of Treatment Not on file documented as of this encounter Visit Diagnoses Not on filedocumented in this encounter
--- OUTSIDE RECORDS SUMMARY | 2025-09-12 17:03 | XMS_ITS | Encounter Summary ---
Author Organization [employer] ([place], [place], [place], [place], [place]) Address [address] [place] [address] Care Team Providers Care Lunch Truck Driver Name Role Phone Unavailable Primary Care Provider Unavailabl e Encounter Details Date Type Department Care Team (Late st Contact Info) Description 04/18/2021 Transcribed Document [facility] Family Medicine [address] [place] [address] ProviderPantera MD [address] [place] [address] Social History Tobacco Use [...] On: 04/18/2021 10:18 EDT by Ramón Hurst, SATURATOR NON-EXEMPT Final Discharge Planning Discharge Arrangements : Patient Post-Acute Information Patient Name: SINDY NGUYEN [facility]: [id number] Gender: Female : [birth year] Age: 75 Years [...] Services (Related/SOC within 3 days)-06 Ramón Hurst SATURATOR NON-EXEMPT - 04/18/2021 10:18 EDT Final Narrative Note Final Narrative Note : Pt was seen at bedside. She is to D/C today. Pt plans to live with a friend in [place], [place]. Updated address was provided to [employer] [employer] [facility]. HH will start tomorrow. Walker will be delivered later today to friend's house. Pt's friend will be providing transportation. IMM provided. She does not wish to appeal D/C. No further issues or cocnerns. MD & RN are aware of plan. CM has cleared for D/C. Ramón Hurst SATURATOR NON-EXEMPT - 04/18/2021 10:18 EDT documented in this encounter Plan of Treatment Not on file documented as of this encounter Visit Diagnoses Not on filedocumented in this encounter
--- OUTSIDE RECORDS SUMMARY | 2025-09-12 17:03 | XMS_ITS | Encounter Summary ---
Author Organization [employer] ([place], [place], [place], [place], [place]) Address [address] [place] [address] Care Team Providers Care Privacy Attorney Name Role Phone Unavailable Primary Care Provider Unavailabl e Encounter Details Date Type Department Care Team (Late st Contact Info) Description 04/17/[address] [facility] [place] Family Medicine [address] [place] [address] ProviderPantera MD [address] [place] [address] Social History Tobacco Use Types [...] On: 04/17/2021 16:50 EDT by Ramón Hurst, FISCAL SERVICES MANAGER NON-EXEMPT Care Management Progress Note Discharge Arrangements [...] Sent to Post Acute Providers : Yes [facility] Quality Web Info Shared w Pt/Fam : Yes Is the Patient Meeting Medical Necessity : Yes Physician Agreeable to Move Forward with D/C Plan? : Yes Discharge Plan Comment : Home with home health & walker Did you Attend Multidisciplinary Rounds? : Yes Ramón Hurst FISCAL SERVICES MANAGER NON-EXEMPT - 04/17/2021 16:50 EDT Narrative Progress Note Narrative Progress Note : Pt was seen at bedside. She still plans to return home with home health services. CM did get a call from [facility] & they have accepted pt. They will start services on 04/19/2021 as D/C is anticipated for tomorrow. [facility] will need final order in [facility] once D/C is confirmed. PT has recommended a walker & pt wanted this through [facility]. A referral to [facility] was sent via [employer]. CM confirmed they got referral for walker [...] for rehab. HH referral was [facility] via [facility]. [facility]. CM notified hospitalist of pt's decision for HH services. Plan is to return home with services. Pt's daughter will provide transportation. CM will continue to follow. Ramón Hurst, FISCAL SERVICES MANAGER NON-EXEMPT - 04/16/21 15:54:11 Ramón Hurst FISCAL SERVICES MANAGER NON-EXEMPT - 04/17/2021 16:50 EDT documented in this encounter Plan of Treatment Not on file documented as of this encounter Visit Diagnoses Not on filedocumented in this encounter
--- OUTSIDE RECORDS SUMMARY | 2025-09-12 17:03 | XMS_ITS | Encounter Summary ---
Author Organization [employer] ([place], [place], [place], [place], [place]) Address [address] [place] [address] Care Team Providers Care Data Communications Technician Name Role Phone Unavailable Primary Care Provider Unavailabl e Encounter Details Date Type Department Care Team (Late st Contact Info) Description 04/18/2021 Transcribed Document [facility] [place] Medicine [address] [place] [address] ProviderPantera MD [address] [place] [address] Social History Tobacco Use Types [...] On: 04/18/2021 14:23 EDT by Vanessa Hilliard, Lastex Operator Patient Resource Center Provider Status : EST Other Established Provider Name : SALVADOR ZAMORANO Patient Phone Number : [phone] Patient Insurance Type : Medicare Source of [...] at ED : Other Primary Language : Micronesian Patient Resource Center Comment : Patient needs follow up appointments. Called offices and Salvador Zamorano' office had already closed. Patient to call in AM. Called and scheduled appointment with Dr. العراقي. Follow Up Needed : No Vanessa Hilliard, Lastex Operator - 04/18/2021 14:23 EDT documented in this encounter Plan of Treatment Not on file documented as of this encounter Visit Diagnoses Not on filedocumented in this encounter
--- OUTSIDE RECORDS SUMMARY | 2025-09-12 17:03 | XMS_ITS | Encounter Summary ---
Author Organization [employer] ([place], [place], [place], [place], [place]) Address [address] [place] [address] Care Team Providers Care Dairy Husbandry Teacher Name Role Phone Unavailable Primary Care Provider Unavailabl e Encounter Details Date Type Department Care Team (Late st Contact Info) Description 04/19/2021 Transcribed Document [facility] [place] [address] [place] [address] ProviderPantera MD [address] [place] [address] Social History Tobacco Use Types [...] Health Plan: [employer] PPO Policy Number: [id number] Authorization Number: Insurance Primary Name : [employer] PPO Policy Number: [id number] Authorization Status-Primary : Denial - admission Reference Number-Primary : Pend ref #[id number] Authorized Service Begin Date-Primary : 04/14/2021 EDT Authorization Comments-Primary : Per call to GuccishaniqueSisi Bustamante stated this one is pending approval Historical [...] 04/15/2021 09:26) CHRIS LARKIN RN - 04/19/2021 12:49 EDT documented in this encounter Plan of Treatment Not on file documented as of this encounter Visit Diagnoses Not on filedocumented in this encounter
--- OUTSIDE RECORDS SUMMARY | 2025-09-12 17:03 | XMS_ITS | Encounter Summary ---
Author Organization [employer] ([place], [place], [place], [place], [place]) Address [address] [place] [address] Care Team Providers Care Dietician Name Role Phone Unavailable Primary Care Provider Unavailabl e Encounter Details Date Type Department Care Team (Late st Contact Info) Description 04/17/2021 Transcribed Document [facility] [place] [address] [place] [address] ProviderPantera MD [address] [place] [address] Social History Tobacco Use Types [...] Historical ProviderMD - 04/17/2021 2:00 AM CDT Clinical Assoc Details Entered On: 04/17/2021 3:10 EDT Performed [...]
--- OUTSIDE RECORDS SUMMARY | 2025-09-12 17:03 | XMS_ITS | Encounter Summary ---
Author Organization [employer] ([place], [place], [place], [place], [place]) Address [address] [place] [address] Care Team Providers Care Resource Teacher Name Role Phone Unavailable Primary Care Provider Unavailabl e Encounter Details Date Type Department Care Team (Late st Contact Info) Description 04/18/2021 Transcribed Document [facility] [place] [address] [place] [address] ProviderPantera MD [address] [place] [address] Social History Tobacco Use Types [...]
--- OUTSIDE RECORDS SUMMARY | 2025-09-12 17:03 | XMS_ITS | Encounter Summary ---
Author Organization [employer] ([place], [place], [place], [place], [place]) Address [address] [place] [address] Care Team Providers Care Photography Intern Name Role Phone Unavailable Primary Care Provider Unavailabl e Encounter Details Date Type Department Care Team (Late st Contact Info) Description 04/18/2021 Transcribed Document [facility] [place] [address] [place] [address] ProviderPantera MD [address] [place] [address] Social History Tobacco Use Types [...] On: 04/18/2021 15:57 EDT by Celena Lucas physician intensivist Documentation Patient Disposition, General : Discharge Mode [...]
--- OUTSIDE RECORDS SUMMARY | 2025-09-12 17:03 | XMS_ITS | Encounter Summary ---
Author Organization [employer] ([place], [place], [place], [place], [place]) Address [address] [place] [address] Care Team Providers Care Sanitary Engineer Name Role Phone Unavailable Primary Care Provider Unavailabl e Encounter Details Date Type Department Care Team (Late st Contact Info) Description 04/18/2021 Transcribed Document [facility] [place] [facility] [place] [address] ProviderPantera MD [address] [place] [address] Social History Tobacco Use Types [...] Tineo MD - 04/18/2021 3:04 PM CDT [facility] [address] [place] [id number] SINDY NGUYEN :1945 Visit Time:04/14/2021 Your Visit [...] seen on imaging at [facility] Where: [address] [facility] [address] [place] [address]- Business (1) Follow Up with DENNIS ZAMORANO [...] Bring discharge instructions with you. Where: [address] [place] [address] Business (1) Medications What How Much When [...] (Qnasl 80 mcg/ inh nasal spray) 2 [place](s) Nasal Every Day as needed for Nasal [...] that you work with a diet and medical insurance claims specialist (dietitian). What are tips for following [...] made with white flour. Waffles, pancakes, and Syriac toast. Bagels. Pretzels. [place] toast, zwieback, and matzoh. Cooked and dried cereals that do not contain whole grains, added fiber, seeds, or dried fruit. Cornmeal. [place]. Hot and cold cereals made with refined [...] Sports drinks. Herbal tea. Fats and oils [place] oil, canola oil, sunflower oil, flaxseed oil, [...] breads and crackers. Multigrain breads and crackers. [place] bread. Whole grain or multigrain cereals. Cereals with nuts, raisins, or coconut. Bran. Coarse wheat cereals. Granola. High-fiber cereals. Cornmeal or corn bread. Whole grain pasta. Wild or brown rice. Quinoa. Popcorn. Buckwheat. Wheat germ. Vegetables Potato skins. Raw or undercooked vegetables. All beans and calles sprouts. Cooked greens. [place]. Peas. Cabbage. Beets. Broccoli. [place] sprouts. Cauliflower. Mushrooms. Onions. Peppers. Parsnips. Okra. [...] are not allowed. Seasoning and other foods [place] tortilla chips. Soups made with vegetables or [...] provider. Document Revised: 12/23/2019 Document Reviewed: 11/03/2017 [employer] Patient Education ?? 2020 [employer] Sepsis, Diagnosis, Adult Sepsis is a serious [...] these instructions at home: Medicines ??? Take vsus-uqb-kzaeojb and prescription medicines only as told by [...] provider. Document Revised: 04/08/2019 Document Reviewed: 04/08/2019 [employer] Patient Education ?? 2020 [employer] Gastrointestinal Bleeding Gastrointestinal (GI) bleeding is [...] Follow these instructions at home: ??? Take ngtl-ssq-jwznyvg and prescription medicines only as told by [...] provider. Document Revised: 04/13/2019 Document Reviewed: 04/13/2019 [employer] Patient Education ?? 2020 [employer] Emergency Awareness and Preventative Care STROKE [...] Assistance with quitting is available by contacting 8-577-NOTS-NOW. This is a free resource providing counseling, [...] range between ( 0.0 and 7.0 ) [place] #: 1.39 K/uL -- Normal range between ( 0.16 and 1.00 ) Eos #: 0.02 x10(3)/uL -- Normal range between ( 0.00 and 0.80 ) [place] %: 8.8 % -- Normal range between [...] was given the opportunity to ask questions. Patient/Clam Dredge Boat Captain Name: Patient/Clam Dredge Boat Captain Signature: Relationship to Patient: Clinician/Hospital Clam Dredge Boat Captain Signature: Date: documented in this encounter Plan of Treatment Not on file documented as of this encounter Visit Diagnoses Not on filedocumented in this encounter
--- OUTSIDE RECORDS SUMMARY | 2025-09-12 17:03 | XMS_ITS | Encounter Summary ---
Author Organization [employer] ([place], [place], [place], [place], [place]) Address [address] [place] [address] Care Team Providers Care Gill Box Operator Name Role Phone Unavailable Primary Care Provider Unavailabl e Encounter Details Date Type Department Care Team (Late st Contact Info) Description 04/17/2021 Transcribed Document [facility] [place] [address] [place] [address] ProviderPantera MD [address] [place] [address] Social History Tobacco Use Types [...]
--- OUTSIDE RECORDS SUMMARY | 2025-09-12 17:03 | XMS_ITS | Encounter Summary ---
Author Organization [employer] ([place], [place], [place], [place], [place]) Address [address] [place] [address] Care Team Providers Care Oreman Name Role Phone Unavailable Primary Care Provider Unavailabl e Encounter Details Date Type Department Care Team (Late st Contact Info) Description 04/16/2021 Transcribed Document [facility] [place] [address] [place] [address] ProviderPantera MD [address] [place] [address] Social History Tobacco Use Types [...] Health Plan: [employer] CHOICE PPO Policy Number: [id number] Authorization Number: Insurance Primary Name : [employer] CHOICE PPO Policy Number: [id number] Authorization Status-Primary : Awaiting callback Reference Number-Primary : Pend ref #[id number] Authorized Service Begin Date-Primary : 04/14/2021 EDT [...]
--- OUTSIDE RECORDS SUMMARY | 2025-09-12 17:04 | XMS_ITS | Encounter Summary ---
Author Organization [employer] ([place], [place], [place], [place], [place]) Address [address] [place] [address] Care Team Providers Care Filter Machine Operator Name Role Phone Unavailable Primary Care Provider Unavailabl e Encounter Details Date Type Department Care Team (Late st Contact Info) Description 04/16/2021 Transcribed Document [facility] [place] Family Medicine [address] [place] [address] ProviderPantera MD [address] [place] [address] Social History Tobacco Use Types [...] Historical ProviderMD - 04/16/2021 2:00 AM CDT Dental Front Office Assistant Details Entered On: 04/16/2021 2:31 EDT Performed [...] EDT Electronically signed by Olga Gonsalves Conversion Heavy Equipment Rental Manager Cerner at 01/02/2023 6:15 PM CDT documented in this encounter Plan of Treatment Not on file documented as of this encounter Visit Diagnoses Not on filedocumented in this encounter
--- OUTSIDE RECORDS SUMMARY | 2025-09-12 17:04 | XMS_ITS | Encounter Summary ---
Author Organization [employer] ([place], [place], [place], [place], [place]) Address [address] [place] [address] Care Team Providers Care Peoplesoft Financials Name Role Phone Unavailable Primary Care Provider Unavailabl e Encounter Details Date Type Department Care Team (Late st Contact Info) Description 04/16/2021 Transcribed Document [facility] [place] [address] [place] [address] ProviderPantera MD [address] [place] [address] Social History Tobacco Use Types [...]
--- OUTSIDE RECORDS SUMMARY | 2025-09-12 17:04 | XMS_ITS | Encounter Summary ---
Author Organization [employer] ([place], [place], [place], [place], [place]) Address [address] [place] [address] Care Team Providers Care Online Merchant Name Role Phone Unavailable Primary Care Provider Unavailabl e Encounter Details Date Type Department Care Team (Late st Contact Info) Description 04/16/2021 Transcribed Document [facility] [place] [address] [place] [address] ProviderPantera MD [address] [place] [address] Social History Tobacco Use Types [...] On: 04/16/2021 9:22 EDT by Ramón Hurst CANCER GENETIC COUNSELOR NON-EXEMPT Initial Assessment I Previously Documented Living [...] Is Guardianship Needed : No Ramón Hurst CANCER GENETIC COUNSELOR NON-EXEMPT - 04/16/2021 9:22 EDT Initial Assessment [...] Acute rehabilitation, Discharge transportation, DME, Home Health, FDC, Short term rehabilitation Patient Discharge Goal : [...] Her PCP is Dr. Salvador Zamorano in [place], [place]. She also sees a pain specialist. Pt defers HH services, SNF or acute rehab. She has home O2 through [facility] in [place] & that is her preferred DME provider. [...] SOCIAL WORKER NON-EXEMPT - 04/16/2021 9:22 EDT Electronically signed by Olga Gonsalves Conversion Merchandise For Resale Purchasing Agent Cerner at 01/02/2023 6:03 PM CDT documented in this encounter Plan of Treatment Not on file documented as of this encounter Visit Diagnoses Not on filedocumented in this encounter
--- OUTSIDE RECORDS SUMMARY | 2025-09-12 17:04 | XMS_ITS | Encounter Summary ---
Author Organization [employer] ([place], [place], [place], [place], [place]) Address [address] [place] [address] Care Team Providers Care Trial Management Associate Name Role Phone Unavailable Primary Care Provider Unavailabl e Encounter Details Date Type Department Care Team (Late st Contact Info) Description 04/16/2021 Transcribed Document [facility] [place] [facility] [place] [address] ProviderPantera MD [address] [place] [address] Social History Tobacco Use [...] OCCUPATIONAL YAIMA NON-EXEMPT - 04/17/2021 12:20 EDT Care Home Goals, OT Grooming LTG Grid Goal #1 Activity : Grooming Assist : Independent, modified Date to Meet : 04/30/2021 EDT Goal Status : Initial goal Comment : standing at sink [place] OCCUPATIONAL YAIMA NON-EXEMPT - 04/17/2021 12:20 EDT Bathing LTG Grid Goal #1 Activity : Bathing Assist : Supervision or set up Date to Meet : 04/30/2021 EDT Goal Status : Initial goal [place] OCCUPATIONAL THERAPIST NON-EXEMPT - 04/17/2021 12:20 EDT Dressing, Lower Body LTG Grid Goal #1 Activity : Dressing, Lower Body Assist : Supervision or set up Equipment : Long Handled Branch Operations Specialist, Sock aid Date to Meet : 04/30/2021 [...]
--- OUTSIDE RECORDS SUMMARY | 2025-09-12 17:04 | XMS_ITS | Encounter Summary ---
Author Organization [employer] ([place], [place], [place], [place], [place]) Address [address] [place] [address] Care Team Providers Care Marketing Compliance Manager Name Role Phone Unavailable Primary Care Provider Unavailabl e Encounter Details Date Type Department Care Team (Late st Contact Info) Description 04/16/2021 Transcribed Document [facility] [place] [address] [place] [address] ProviderPantera MD [address] [place] [address] Social History Tobacco Use Types [...] On: 04/16/2021 15:47 EDT by Ramón Hurst, BRIDAL CONSULTANT NON-EXEMPT Care Management Progress Note Discharge Arrangements : Patient Post-Acute Information Patient Name: SINDY NGUYEN Gender: Female : [birth year] Age: 75 Years No Post-Acute Placement(s) Listed No Post-Acute Service(s) Listed No [place] Referral(s) Listed Discharge Options Discussed with Patient : Acute rehabilitation, Discharge transportation, DME, Home Health, longterm, Short term rehabilitation Barriers to Discharge Identified : Clinical Condition of Patient Barriers to Discharge Unresolved : Clinical Condition of Patient Patient Discharge Goal : Home Patient Offered Choice/Affiliations Explained : Yes Designation of Choice Signed : Yes List/Info Provided Pt/Fam/Support Person : Home health Were Referrals Sent to Post Acute Providers : Yes [facility] Quality Web Info Shared w Pt/Fam : Yes Discharge Plan Comment : Pt agreeable to HH services, but declines placement. Did you Attend Multidisciplinary Rounds? : Yes Ramón Hurst BRIDAL CONSULTANT NON-EXEMPT - 04/16/2021 15:47 EDT Narrative Progress [...] for rehab. HH referral was sent via [employer]. [facility]. CM notified hospitalist of pt's decision for HH services. Plan is to return home with HH services. Pt's daughter will provide transportation. CM will continue to follow. Ramón Hurst BRIDAL CONSULTANT NON-EXEMPT - 04/16/2021 15:47 EDT documented in this encounter Plan of Treatment Not on file documented as of this encounter Visit Diagnoses Not on filedocumented in this encounter
== END 2025-09-12 23:59 | disposition home or self-care (01) ==
LOC: LAB 16:57
PROVIDERS: PCP Nurse Practitioner Family; Visit Provider Nurse Practitioner Family
DX: R30.0 Dysuria (principal)
CPT/HCPCS: 87086; 87088; 87186